=== PATIENT | male | born 1945 | race Caucasian/White ===

== ENCOUNTER 2018-12-21 07:36 | Emergency (ER) | payer MEDICARE, OTHER ==
[~2018-12-21] VITALS: Ht 172.7 cm; Wt 86.2 kg
[~2018-12-21 07:36] MED LIST: ALENDRONATE SOD70 MG PO; CALCIUM 600 +1 EAC1 PO; CYCLOBENZAPRINE10 MG PO; DICLOFENAC-MIS1 EAC3 PO; FOLIC ACID0.8 MG PO; GABAPENTIN800 MG PO; HYDROCODON-ACE1 EA10 PO; KEFLEX500 MG PO; LACTULOSE10 GM/151 PO; LEFLUNOMIDE10 MG PO; LEVOTHYROXINE75 MCG PO; LISINOPRIL10 MG PO; LITHIUM CARBON600 MG PO; METHOTREXA25 MG/1 ML INJ; MIRTAZAPINE30 MG PO; MULTIVITAMINS1 EAC7 PO; OMEPRAZOLE20 MG PO; SERTRALINE HCL100 MG PO; SIMVASTATIN80 MG PO; TAMSULOSIN HCL0.4 MG PO; VITAMIN C500 M1 PO; VITAMIN D22000 UNIT PO; ZIPRASIDONE HCL80 MG PO
--- OUTSIDE RECORDS SUMMARY | 2018-12-21 07:38 | XMS ---
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 April has no Care Guidelines for this patient. [place] VISIT COUNT (12 MO.) 1 RAHEEM uW TOTAL 1 NOTE: Visits indicate total known visits. ED/UCC VISIT TRACKING (12 MO.) 12/21/2018 07:36 [place] [place] TYPE: Emergency COMPLAINT: - ABD PAIN INPATIENT VISIT TRACKING (12 MO.) No inpatient visits to display in this time frame [id number]
[2018-12-21] MEDS ORDERED: ARAVA10 MG PO (09:46)
[2018-12-21] MEDS ORDERED: CYMBALTA60 MG PO (09:46)
[2018-12-21] MEDS ORDERED: B-121000 MC2 PO (09:46)
[2018-12-21] MEDS ORDERED: FLOVENT HFA12 G1 INH (09:47)
[2018-12-21] MEDS ORDERED: FISH OIL 1,2001 EAC6 PO (09:47)
[2018-12-21] MEDS ORDERED: GLUCOSAMIN-CHO1 EACH PO (09:48)
[2018-12-21] MEDS ORDERED: METHYLFOLATE PO (09:48)
[2018-12-21] MEDS ORDERED: XOPENEX0.63 MG/3 INH (09:49)
[2018-12-21] MEDS ORDERED: LITHIUM CARBON300 M1 PO (09:50)
[2018-12-21] MEDS ORDERED: LEVOTHYROXINE88 MCG PO (09:50)
[2018-12-21] MEDS ORDERED: MELATONIN5 M2 PO (09:50)
[2018-12-21] MEDS ORDERED: CELLCEPT500 MG PO (09:51)
[2018-12-21] MEDS ORDERED: PROPRANOLOL HC160 MG PO (09:53)
[2018-12-21] MEDS ORDERED: ZOCOR40 MG PO (09:53)
[2018-12-21] MEDS ORDERED: Tumeric Curcumin PO (09:54)
[2018-12-21] MEDS ORDERED: AMBIEN5 MG PO (09:55)
[2018-12-21] MEDS ORDERED: VRAYLAR4.5 MG PO (09:55)
[2018-12-21] MEDS ORDERED: MIRALAX17 GM PO (11:32)
== END 2018-12-21 11:47 | disposition home or self-care (01) ==
LOC: ED 07:36
DX: R10.9 Unspecified abdominal pain (principal); M06.9 Rheumatoid arthritis, unspecified; F32.9 Major depressive disorder, single episode, unspecified; E03.9 Hypothyroidism, unspecified; G47.30 Sleep apnea, unspecified; I10 Essential (primary) hypertension; E78.00 Pure hypercholesterolemia, unspecified; Z87.891 Personal history of nicotine dependence; Z90.49 Acquired absence of other specified parts of digestive tract; Z79.899 Other long term (current) drug therapy
CPT/HCPCS: 74177; 80053; 81001; 83690; 85025; 96374; 96375; 99284-25; J2270; J2405; J7030; Q9967

== ENCOUNTER 2019-09-09 13:52 | Emergency (ER) | payer MEDICARE, OTHER ==
[~2019-09-09] VITALS: Ht 172.7 cm; Wt 101.6 kg
--- OUTSIDE RECORDS SUMMARY | ~2019-09-09 | XMS | Clinical Summary ---
Demographics + + + | Address | [address] | | | [place] [address] | + + + | Home Phone | | + + + | Preferred Language | Unknown | + + + | Marital Status | | + + + | Mormon Affiliation | Unknown | + + + | Race | Unknown | + + + | Ethnic Group | Unknown | + + + Author + + + | Author | [facility] (Historical as of | | | 06-16-19) | + + + | Organization | [facility] (Historical as of | | | 06-16-19) | + + + | Address | Unknown | + + + | Phone | Unavailable | + + + Support + + + + + | Name | Relationship | Address | Phone | + + + + + | Detailed,Message | ECON | [address] | | | | | [place], [place] | | | | | [address] | | + + + + + | Maldonado Rea | ECON | Unknown | | + + + + + | Henny Rea | ECON | Unknown | | + + + + + | Meredith Rea | ECON | Unknown | | + + + + + Care Team Providers + +------+ + | Care Rotary Planer Set Up Operator Name | Role | Phone | + +------+ + | Brandon Juarez MD | PP | Unavailable | + +------+ + Allergies No Known Allergies Current Medications + + +-------+---------+------+------+-------+ | Prescription | Sig. | Disp. | Refills | Star | End | Statu | | | | | | t | Date | s | | | | | | Date | | | + + +-------+---------+------+------+-------+ | levothyroxine | Take 75 mcg by mouth | | | | | Activ | | (SYNTHROID) 75 MCG | every morning | | | | | e | | tablet | before breakfast. | | | | | | + + +-------+---------+------+------+-------+ | gabapentin | Take 800 mg by mouth | | | | | Activ | | (NEURONTIN) 800 MG | 4 (four) times | | | | | e | | tablet | daily. | | | | | | + + +-------+---------+------+------+-------+ | omeprazole | Take 20 mg by mouth | | | | | Activ | | (PRILOSEC) 20 MG | 2 (two) times daily. | | | | | e | | capsule | | | | | | | + + +-------+---------+------+------+-------+ | folic acid | Take 800 mcg by | | | | | Activ | | (FOLVITE) 800 MCG | mouth daily. | | | | | e | | tablet | | | | | | | + + +-------+---------+------+------+-------+ | Cholecalciferol | Take 4,000 Units by | | | | | Activ | | (VITAMIN D) 2000 | mouth daily. | | | | | e | | UNITS tablet | | | | | | | + + +-------+---------+------+------+-------+ | ascorbic acid | Take 500 mg by mouth | | | | | Activ | | (VITAMIN C) 500 MG | daily. | | | | | e | | tablet | | | | | | | + + +-------+---------+------+------+-------+ | simvastatin | Take 40 mg by mouth | | | | | Activ | | (ZOCOR) 40 MG tablet | nightly. | | | | | e | + + +-------+---------+------+------+-------+ | | Take 1 tablet by | | | | | Activ | | diclofenac-misoprost | mouth daily. | | | | | e | | ol (ARTHROTEC 50) | | | | | | | | 50-0.2 MG per tablet | | | | | | | + + +-------+---------+------+------+-------+ | leflunomide | Take 10 mg by mouth | | | | | Activ | | (ARAVA) 20 MG | daily. Tuesday thru | | | | | e | | tabletIndications: | Fridays only | | | | | | | 10mg sat and sun | Indications: 10mg | | | | | | | | sat and sun | | | | | | + + +-------+---------+------+------+-------+ | DULoxetine | Take 30 mg by mouth | | | | | Activ | | (CYMBALTA) 30 MG | daily. | | | | | e | | capsule | | | | | | | + + +-------+---------+------+------+-------+ | lurasidone | Take 80 mg by mouth | | | | | Activ | | (LATUDA) 80 MG | every morning. T | | | | | e | | tablet | | | | | | | + + +-------+---------+------+------+-------+ | | Take 1 capsule by | | | | | Activ | | glucosamine-chondroi | mouth daily. | | | | | e | | tin 500-400 MG CAPS | | | | | | | + + +-------+---------+------+------+-------+ | MULTIPLE VITAMINS | Take by mouth | | | | | Activ | | PO | daily. | | | | | e | + + +-------+---------+------+------+-------+ | fish oil omega-3 | Take 1,200 mg by | | | | | Activ | | fatty acids 1000 MG | mouth daily. | | | | | e | | capsule | | | | | | | + + +-------+---------+------+------+-------+ | Misc Natural | Take by mouth | | | | | Activ | | Products (TURMERIC | daily. | | | | | e | | CURCUMIN) CAPS | | | | | | | + + +-------+---------+------+------+-------+ | cyanocobalamin | Take 1,000 mcg by | | | | | Activ | | (VITAMIN B-12) 1000 | mouth daily. | | | | | e | | MCG tablet | | | | | | | + + +-------+---------+------+------+-------+ | tofacitinib | Take 11 mg by mouth | | | | | Activ | | citrate (XELJANZ XR) | Before eavning meal. | | | | | e | | 11 MG tablet XR | | | | | | | + + +-------+---------+------+------+-------+ | lithium carbonate | Take 900 mg by mouth | | | | | Activ | | 300 MG capsule | nightly. | | | | | e | + + +-------+---------+------+------+-------+ | methotrexate 1 | Inject 0.9 mg/kg | | | | | Activ | | GM/40ML SOLN | into the vein once. | | | | | e | | injection | | | | | | | + + +-------+---------+------+------+-------+ | medical marijuana | as needed. | | | | | Activ | | | | | | | | e | + + +-------+---------+------+------+-------+ Active Problems + + + | Problem | Noted Date | + + + | Bradycardia | 03/12/2015 | + + + + + | Last Assessment & Plan: Low heart rate but asymptomaticHe had | | brief period of HTN when he was on steroids for control of | | rheumatoid arthritis- now he is off steroids for over a year and | | possibly his BP is better controlled off BP medications.Reg EST | | appropriate chronotropic response to [id number] echo not done | | yetCOntinue rest of the current managementContinue StatinFollow | | up annually- pending echo. | + + + + + | Left carotid bruit | 04/02/2013 | + + + | Orthostatic hypotension | 04/02/2013 | + + + | Depression | | + + + | Hypothyroidism | | + + + | Essential hypertension | | + + + + + | Last Assessment & Plan: Hypertension, borderline control. | | 71 y old man being seen today for follow-up on hypertension and | | bradycardia. Last seen one year ago and had an echo done | | 09/22/2015 which demonstrated normal LV systolic function with an | | EF of almost 70% and mild concentric LVH. He also had a stress | | test done last year. Since last seen he denies any | | hospitalization for chest pain, palpitations, or irregular heart | | rate. He denies any angina, shortness of breath, dizziness, or | | syncope. He reports his blood pressure was treated with | | lisinopril by his PCP but his blood pressure was too low and it | | was stopped. He is also on propranolol 3 times a day for tremor. | | He has severe rheumatoid arthritis which causes a great deal of | | pain and which he and his feel contributes to transient | | elevations in his blood pressure. EKG reviewed with patient. He | | was advised to continue to follow-up with his primary care and | | not experiencing any chest pain or other symptoms, could follow | | up with us in 2 years.Last Cath: [facility], [facility]2015 [facility] Aortic valve mildly sclerotic, trileaflet. Right | | and left atrial sizes WNL. No aortic stenosis or regurgitation. | | Trace mitral regurgitation. Aortic size 3.7 cm. Mild abdominal | | aortic plaque. Mild concentric LVH with normal systolic | | function.Last Stress Test: 03/20/2015 ([facility]): 7:27min | | Emre, no chest pain, ECG (-) for ischemia, occ PVC's.09/20/2016: | | EKG. Sinus bradycardia rate 52 bpm. Ongoing tremor affecting | | uejcofh3808/25/2016: Labs: Sodium 138, potassium 4.2, creatinine | | 0.87, BUN 10, GFR 87, glucose 101, liver enzymes WNL. CRP <1. | | Hemoglobin 15.8, hematocrit 46.2, lately at 338. ESR zero. No | | lipid | + + + +---+ | Polycythemia, secondary | | + +---+ + + | Overview: medical marijuana and sleep apnea | + + + +---+ | Bipolar disorder | | + +---+ | RA (rheumatoid arthritis) | | + +---+ + + | Last Assessment & Plan: Rheumatoid arthritis, chronic pain | | issues. Followed by Rheumatology, Dr. Leydi Nam. Pain from | | arthritis possibly a contributor to his labile hypertension. | + + + +---+ | Major depressive disorder, recurrent episode, severe degree, | | | without mention of psychotic behavior | | + +---+ | Anxiety disorder | | + +---+ | Schizophrenia (HCC) | | + +---+ Family History + + +------+ + | Medical History | Relation | Name | Comments | + + +------+ + | Heart disease | Father | | | + + +------+ + | Other (see comments) | Father | | CAD | + + +------+ + + +------+ + + | Relation | Name | Status | Comments | + +------+ + + | Father | | | OK, pacemaker, heart disease | | | | (Age | | | | | 68) | | + +------+ + + | Mother | | | suicide | | | | (Age | | | | | 36) | | + +------+ + + Social History + +-------+ +--------+ + | Tobacco Use | Types | Packs/Day | Years | Date | | | | | Used | | + +-------+ +--------+ + | Former Smoker | Pipe | | 15 | Quit: 10/31/1980 | + +-------+ +--------+ + + +---+---+---+ | Smokeless Tobacco: | | | | | Never Used | | | | + +---+---+---+ + + +---------+ + | Alcohol Use | Drinks/We | oz/Week | Comments | | | ek | | | + + +---------+ + | No | 0 | 0.0 | | | | Standard | | | | | drinks or | | | | | | | | | | equivalen | | | | | t | | | + + +---------+ + + + + | Sex Assigned at | Date Recorded | | | | + + + | Not on file | | + + + Last Filed Vital Signs + + + + | Vital Sign | Reading | Time Taken | + + + + | Blood Pressure | 154/66 | 09/20/2016 11:15 AM PST | + + + + | Pulse | 63 | 09/20/2016 11:15 AM PST | + + + + | Temperature | - | - | + + + + | Respiratory Rate | 17 | 09/20/2016 11:15 AM PST | + + + + | Oxygen Saturation | 98% | 09/20/2016 11:15 AM PST | + + + + | Inhaled Oxygen | - | - | | Concentration | | | + + + + | Weight | 97 kg (213 lb 12.8 | 09/20/2016 11:15 AM PST | | | oz) | | + + + + | Height | 172.7 cm (5' 8") | 09/20/2016 11:15 AM PST | + + + + | Body Mass Index | 32.51 | 09/20/2016 11:15 AM PST | + + + + Plan of Treatment + + + + + | Health Maintenance | Due Date | Last Done | Comments | + + + + + | Vaccine: | | | | | Dtap/Tdap/Td (1 - | 5 | | | | Tdap) | | | | + + + + + | Colon Cancer | | | | | Screening | 6 | | | | (Colonoscopy) | | | | + + + + + | Vaccine: Zoster (1 | | | | | of 2) | 6 | | | + + + + + | Vaccine: Influenza | | 07/25/2018, 08/12/2017, | | | (#1) | 9 | 08/07/2015 | | + + + + + | Vaccine: | Completed | 08/12/2017, 08/11/2013 | | | Pneumococcal 65+ | | | | | Low/Medium Risk | | | | + + + + + Results Not on filefrom Last 3 Months Insurance + +--------+ +------+-------+ + | Payer | Benefi | Subscriber | Type | Phone | Address | | | t Plan | ID | | | | | | / | | | | | | | Group | | | | | + +--------+ +------+-------+ + | MEDICARE | MEDICA | [id number] | | | [address] | | | RE | | | | [place] [address] | | | IP-OP | | | | | + +--------+ +------+-------+ + | [employer] | ODS | [id number] | | | | | | HEALTH | | | | | | | PLAN | | | | | + +--------+ +------+-------+ + + +--------+ +--------+ + + | Guarantor Name | Accoun | Relation to | Date | Phone | Billing Address | | | t Type | Patient | of | | | | | | | | | | + +--------+ +--------+ + + | RACHEL REA | Person | Self | [birth year] Home: | [address] | | | al/Fam | | 1945 | [phone] | [place] | | | [place] | | | [phone] | [phone] | + +--------+ +--------+ + +
--- OUTSIDE RECORDS SUMMARY | ~2019-09-09 | XMS | Encounter Summary ---
Demographics + + + | Address | [address] | | | [place] [address] | + + + | Home Phone | | + + + | Preferred Language | Unknown | + + + | Marital Status | | + + + | Taoist Affiliation | Unknown | + + + | Race | Unknown | + + + | Ethnic Group | Unknown | + + + Author + + + | Author | [facility] | | | and [place] | + + + | Organization | [facility] | | | and [place] | + + + | Address | Unknown | + + + | Phone | Unavailable | + + + Support + + + + + | Name | Relationship | Address | Phone | + + + + + | Henny Rea | ECON | [address] | | | | | [place], [place] | | | | | [address] | | + + + + + | Mao Rea | ECON | Unknown | | + + + + + | Meredith Rea | ECON | Unknown | | + + + + + | Iqra Medina | ECON | [address] | | | | | [place], [place] | | | | | [address] | | + + + + + | Maldonado Rea | ECON | Unknown | | + + + + + Care Team Providers + +------+ + | Care Game Farm Helper Name | Role | Phone | + +------+ + | Brandon Juarez MD | PCP | | + +------+ + Reason for Visit + + + | Reason | Comments | + + + | Back Pain | | + + + Evaluate & Treat (Routine) +--------+ + + + + + | Status | Reason | Specialty | Diagnoses / | Referred By | Referred To | | | | | Procedures | Contact | Contact | +--------+ + + + + + | Closed | Specialty | Neurosurgery | Diagnoses | Charles | Koby George | | | Services | | Lumbar | Logan Rios MD | MD [facility] [address] | | | Required | | spinal | [address] | | | | | stenosis | [address] | [place], [place] | | | | | Lumbalgia | [place], | [address] | | | | | Lumbar | [place] [address] | Phone: | | | | | degenerative | Phone: | [phone] | | | | | disc | [phone] | Fax: | | | | | disease | Fax: | [phone] | | | | | Lumbar facet | [phone] | | | | | | arthropathy | | | | | | | Procedures | | | | | | | [place] OFFICE | | | | | | | CONSULTATION | | | | | | | NEW/ESTAB | | | | | | | PATIENT 60 | | | | | | | MIN | | | +--------+ + + + + + Encounter Details +--------+---------+ + + + | Date | Type | Department | Care Team | Description | +--------+---------+ + + + | 08/20/ | Office | [facility] | Koby George MD | Flat back syndrome | | 2013 | Visit | NEUROSURGERY [address] | (Primary Dx); | | | | [address] | [place] [address] | Degenerative disc | | | | [place], [place] | [phone] | disease, lumbar; | | | | [address] | | Lumbar stenosis with | | | | [phone] | | neurogenic | | | | | | claudication; | | | | | | Foraminal stenosis | | | | | | of lumbar region; | | | | | | Lumbar | | | | | | radiculopathy; | | | | | | 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; | | | | | | Facet arthropathy, | | | | | | lumbar | +--------+---------+ + + + Social History + +-------+ +--------+ + | Tobacco Use | Types | Packs/Day | Years | Date | | | | | Used | | + +-------+ +--------+ + | Former Smoker | | 2 | 20 | Quit: 10/31/1980 | + +-------+ +--------+ [...] on file | | + + + + + + + | Job Start Date | Occupation | Industry | + + + + | Not on file | Not on file | Not on file | + + + + + + + + | Travel History | Travel Start | Travel End | + + + + + + | No recent travel history available. | + + documented as of this encounter Last Filed Vital Signs + + + + + | Vital Sign | Reading | Time Taken | Comments | + + + + + | Blood Pressure | 112/70 | 08/20/2014 8:32 AM | | | | | PDT | | + + + + + | Pulse | 68 | 08/20/2014 8:32 AM | | | | | PDT | | + + + + + | Temperature | - | - | | + + + + + | Respiratory Rate | 18 | 08/20/2014 8:32 AM | | | | | PDT | | + + + + + | Oxygen Saturation | - | - | | + + + + + | Inhaled Oxygen | - | - | | | Concentration | | | | + + + + + | Weight | 87.1 kg (192 lb) | 08/20/2014 8:32 AM | | | | | PDT | | + + + + + | Height | 175.3 cm (5' 9") | 08/20/2014 8:32 AM | | | | | PDT | | + + + + + | Body Mass Index | 28.35 | 08/20/2014 8:32 AM | | | | | PDT | | + + + + + documented in this encounter Patient Instructions Patient Instructions Koby George MD - 08/20/2014 9:47 AM PDTWe discussed and will attemp t to arrange a lumbar fusion. I favored an anterior fusion with posterior instrumentation. Your insurance provider may or may not approve the procedure, but I feel it is medically ne cessary and appropriate. We discussed a number of important issues including risks, benefits, and alternatives. A spine class is usually available sometime before your surgery. These classes are very us eful in preparing for spinal surgery. I would encourage you to attend one. After surgery, it is critical that you do not start or resume smoking and also that you brayan id taking any and all anti-inflammatory medications like ibuprofen, Motrin, naproxen, Aleve, Celebrex, diclofenac, Mobic, meloxicam, and many others. The bone is much less likely to h eal if you do not avoid these. It is usually best not to take these or smoke for 6 months. You can research this procedure more at: [email or web address].com/patient-solutions/ Choose your Diagnosis first and then choose XLIF under the [facility] link. documented in this encounter Progress Notes Koby George MD - 08/20/2014 8:26 AM PDTFormatting of this note might be different from t he original. Koby George MD [address], [address] [place] [address] FAX: NEUROSURGERY HISTORY AND PHYSICAL EXAMINATION CHIEF COMPLAINT: Chief Complaint Patient presents with Back Pain HISTORY OF PRESENT ILLNESS: The patient is a 69 y.o. male with the complaint of back pain and leg pain that began over 1 year ago. The symptoms began to worsen. He has pain in his back and pain down his left posterior leg and anterior thigh as well. The anterior thigh pa in is constant. The posterior leg pain to [...] tablet Take 10 mg by mouth Daily. lisinopril (PRINIVIL, ZESTRIL) 10 mg tablet Take [...] patient reports that he quit smoking about 33 years ago. He has never used smokeless [...] + rheumatoid arthritis. PHYSICAL EXAMINATION: Blood pressure 112/70, pulse 68, resp. rate 18, height 1.753 m (5' 9"), weight 87.091 kg (1 92 lb). Body mass index is 28.34 kg/(m^2). GENERAL: Uziel Rea is in no [...] has no apparent deficits with short or correction memory. CRANIAL NERVES: II: Acuity is intact. [...] Indicates pain limited MUSCLE/ MOVEMENT: RIGHT LEFT Deltoids 5 5 Biceps 5 5 Triceps 5 5 Wrist Flexion 5 5 Wrist Extension 5 5 Median Intrinsics 5 5 Ulnar Intrinsics 5 5 Gospel Worker Strength 5 5 Hip Flexion 5 5 Hip Extension 5 [...] ASSESSMENT: NEUROSURGICAL DIAGNOSES: Encounter Diagnoses Name Primary? Flat back syndrome Yes Degenerative disc disease, lumbar Lumbar stenosis with neurogenic claudication Foraminal stenosis of lumbar region Lumbar radiculopathy Spondylolisthesis of lumbar region Facet arthropathy, lumbar GENERAL DIAGNOSES: Past Medical History Diagnosis Date Depression Arthritis rheumatoid Cancer (HCC) 2003 colon cancer Anxiety Hypothyroid PLAN: It was a pleasure meeting and evaluating this patient today, and I greatly appreciate the r eferral. The patient has lumbar disease with severe stenosis I had a lengthy discussion with the patient about his options for care including surgical a nd non-surgical options. He favored surgery over continuing his failing conservative care. I discussed a L2-L5 fusion with decompression and instrumentation. We discussed the risks, alternatives, and benefits [...] improve the probability and rate of fusion. I spent 1 hour in visit with Uziel Rea today with the majority of time spent debt and budget counselor ling the patient on his diagnosis, options for his care, and coordinating his care. ELECTRONICALLY SIGNED BY: Koby George MD, 08/20/2014 9:47 documented in this encou nter Plan of Treatment +--------+---------+ + + + | Date | Type | Specialty | Care Team | Description | +--------+---------+ + + + | 12/07/ | Office | Neurology | Abundio Khanna MD | | | 2020 | Visit | | [address] | | | | | | [place] | | | | | | [address] | | | | | | | | +--------+---------+ + + + documented as of this encounter Visit Diagnoses + + | Diagnosis | + + | Flat back syndrome - Primary Other lordosis (acquired) | + + | Degenerative disc disease, lumbar Degeneration of lumbar or lumbosacral | | intervertebral disc | + + | Lumbar stenosis with neurogenic claudication Spinal stenosis, lumbar region, with | | neurogenic claudication | + + | Foraminal stenosis of lumbar region Spinal stenosis, lumbar region, without | | neurogenic claudication | + + | Lumbar radiculopathy Thoracic or lumbosacral neuritis or radiculitis, unspecified | + + | Spondylolisthesis of lumbar region Acquired spondylolisthesis | + + | Facet arthropathy, lumbar Lumbosacral spondylosis without myelopathy | + + documented in this encounter
--- OUTSIDE RECORDS SUMMARY | ~2019-09-09 | XMS | Encounter Summary ---
Demographics + + + | Address | [address] | | | [place] [address] | + + + | Home Phone | | + + + | Preferred Language | Unknown | + + + | Marital Status | | + + + | Jainism Affiliation | Unknown | + + + | Race | Unknown | + + + | Ethnic Group | Unknown | + + + Author + + + | Author | [facility] | | | and [place] | + + + | Organization | [facility] | | | and [place] | [...] [place], [place] | | | | | [address] | | + + + + + | Mao Rea | ECON | Unknown | | + + + + + | Meredith Rea | ECON | Unknown | | + + + + + | Iqra Medina | ECON | [address] | | | | | [place], [place] | | | | | [address] | | + + + + + | Maldonado Rea | ECON | Unknown | | + + + + + Care Team Providers + +------+ + | Care Elevator Tender Name | Role | Phone | + +------+ + | Sherie Vela PA-C | PCP | | + +------+ + Reason for Referral Evaluate & Treat (Routine) +--------+ + + + + + | Status | Reason | Specialty | Diagnoses / | Referred By | Referred To | | | | | Procedures | Contact | Contact | +--------+ + + + + + | Closed | Specialty | Neurosurgery | Diagnoses | Charles | [facility] | | | Services | | Lumbar | Logan Rios MD | NEUROSCIENCE | | | Required | | radiculopath | [address] | | | | | y Chronic | [address] | [address] | | | | | left-sided | [place], | [address] | | | | | low back | [place] [address] | [place], [place] | | | | | pain with | Phone: | [phone] | | | | | left-sided | [phone] | Phone: | | | | | sciatica | Fax: | [phone] | | | | | History of | [phone] | Fax: | | | | | lumbar | | [phone] | | | | | fusion | | | | | | | Failed back | | | | | | | surgical | | | | | | | syndrome | | | | | | | Left leg | | | | | | | weakness | | | | | | | Parkinsonian | | | | | | | tremor | | | | | | | ([facility]) | | | +--------+ + + + + + Reason for Visit + + + | Reason | Comments | + + + | Back Pain | | + + + Encounter Details +--------+---------+ + + + | Date | Type | Department | Care Team | Description | +--------+---------+ + + + | 02/26/ | Office | [facility] [place] | Logan Soto, | Lumbar radiculopathy | | 2019 | Visit | PHYSIATRY [address] | [address] | (Primary Dx); | | | | [address] [place], | [place], [place] | Chronic left-sided | | | | [place] [address] | [address] | low back pain with | | | | [phone] | | left-sided sciatica; | | | | | | History of lumbar | | | | | | fusion; Failed back | | | | | | surgical syndrome; | | | | | | Left leg weakness; | | | | | | Parkinsonian tremor | | | | | | (HCC) | +--------+---------+ + + + Social History [...] this encounter Last Filed Vital Signs + +---------+ + + | Vital Sign | Reading | Time Taken | Comments | + +---------+ + + | Blood Pressure | 151/98 | 02/26/2019 1:09 PM | | | | | PDT | | + +---------+ + + | Pulse | 70 | 02/26/2019 1:09 PM | | | | | PDT | | + +---------+ + + | Temperature | - | - | | + +---------+ + + | Respiratory Rate | - | - | | + +---------+ + + | Oxygen Saturation | - | - | | + +---------+ + + | Inhaled Oxygen | - | - | | | Concentration | | | | + +---------+ + + | Weight | - | - | | + +---------+ + + | Height | - | - | | + +---------+ + + | Body Mass Index | - | - | | + +---------+ + + documented in this encounter Functional [...] + + documented as of this encounter Patient Instructions Patient Instructions Petra Prater RN - 02/26/2019 1:00 PM [facility] to [facility]. Please attend the injection appointment with Luis Carlos Jiménez MD. If his office has not co ntacted you within one week, to schedule the injection, please contact my clinic. Your inje ction will be performed at [facility]. Please take note of whether your pain is significantly reduced in the hours immediately following the injecti on. Follow-up at the hospital thirty minutes before your scheduled procedure to allow for time to check in. You may eat and drink as usual on the day of the procedure. If you are scheduled for an epidural injection do not take any blood thinning medications f or at least 5-7 days prior to your procedure unless you have been instructed by another phys ician not to discontinue blood thinning medications. If you are having a procedure other than an epidural injection (i.e. facet injection, media l branch block, SI joint injection or other joint injection) it is not absolutely necessary to discontinue blood thinning medications but doing so will decrease the risk of bruising or bleeding. If you have had a prior stroke, DVT or PE or if you are taking blood thinning medication be cause you have atrial fibrillation, a prosthetic cardiac valve replacement or heart stenting do not stop taking your blood thinning medications unless you have permission from your car diologist or primary care provider. All other medications should be taken as usual on the day of the procedure. Common blood thinning medications include: Aspirin (a baby aspirin is o.k.) Ibuprofen (Advil or Motrin) Naproxen (Aleve) Nabumetone (Relafen) Clopidogrel (Plavix) Dipyridamole/ASA (Aggrenox) Warfarin (Coumadin) Dabigatran (Pradaxa) Rivaroxaban (Xarelto) There are many others. If you have questions about your medications and whether or not you should stop any medications please contact our office. If you are having an epidural injection or if you take any medication for relaxation/sedati on on the day of the procedure you must provide a caterpillar driver to take you home. For all procedur es it is recommended that someone else drive you home. documented in this encounter Progress Notes Logan oSto MD - 02/26/2019 1:00 PM PDTFormatting of this note might be different fro m the original. Logan Soto MD [address] [facility], [address] [place], [place] [id number] FAX: PHYSICAL MEDICINE AND REHABILITATION H&P CHIEF COMPLAINT: Chief Complaint Patient presents with Back Pain HISTORY OF PRESENT ILLNESS: Uziel Rea is a 73 y.o. male being seen today in follow-up for complaints of back pain and to review response to interventional injections. Uziel Rea was last seen on 11/20/18. Previously it was recommended that he complete repeat treatment with Dr. Jiménez. Overall Uziel Rea reports that his symptoms are worsening. He reports having a recent fal l that caused his back to twist causing increased pain. Uziel Rea indicates he is also having evaluation and treatment with Dr. Jessica, he indic ates that he received recent SI joint injection in January that offered approximately 10 days of improved pain. Uziel Rea indicates at this time he would like to discuss available surgical intervention . Uziel Rea rates his back pain as 7 on scale of 1-10. Uziel Rea describes the pain as aching and sharp. His symptoms worsen with walking, standing, bending, and riding in a car . His symptoms improve with lying flat on his back down and steroid injections. Uziel hernandez denies numbness of the legs at this time, He does continue to have chronic tingling of the feet. He does report weakness of the bilateral legs, worse to the left. He continues t o use a single point cane for aid with ambulation. He does not have bowel and bladder dysfunction. He does not have saddle anesthesia. Treatments for these complaints have included medication, bone growth stimulator, Physical Therapy, steroid injections, and surgical interventions. Uziel Rea is currently taking Cy mbalta and gabapentin for treatment his of pain. Prior injections have included left L2-L3 transforaminal epidural steroid injection. Uziel murphy's most recent injection was completed 12/06/17, with Dr. Jiménez. Uziel Rea repor ts having approximately 25% improvement directly following the injection. Uziel Rea report s that 2 weeks following the injection he experienced approximately 70% improvement to his b ack pain. Today Uziel Rea reports that the effects of the injection have worn off. Uziel Rea's medications, allergies, past medical, surgical, social and family histories w ere reviewed and updated as appropriate. CURRENT MEDICATIONS: Current Outpatient Medications Medication Sig Dispense Refill Ascorbic Acid (VITAMIN C WITH TOM HIPS) 500 MG tablet Take 500 mg by mouth Daily. Calcium Carb-Cholecalciferol (CALCIUM + D3) 600-800 MG-UNIT TABS Take 2 tablets by mout h Daily. carbidopa-levodopa (SINEMET) 25-100 mg per tablet Take 1 tablet by mouth 3 times daily. Start with 1 tab daily. Increase by 1 tab every 3 days up to 1 tab 3 times a day. 90 tablet 5 Cholecalciferol (VITAMIN D-3) 2000 units CAPS Take 2,000 Units by mouth Daily. cyanocobalamin (VITAMIN B-12) 1000 MCG tablet Take 1,000 mcg by mouth Daily. DULoxetine (CYMBALTA) [address] capsule DULoxetine (CYMBALTA) [address] capsule fluticasone (FLOVENT HFA) 110 mcg/puff inhaler Inhale 1 puff into the lungs 2 times jake ly. gabapentin (NEURONTIN) 400 mg capsule Take 400 mg by mouth 2 times daily. glucosamine-chondroitin (GLUCOSAMINE-CHONDROITIN DS) 500-400 MG tablet Take 1 tablet by mouth Daily. l-methylfolate 7.5 mg tablet Take 7.5 mg by mouth Daily. leflunomide (ARAVA) 10 mg tablet Take 10 mg by mouth Daily. levalbuterol (XOPENEX HFA) 45 mcg/puff inhaler 2 puffs EVERY 4 TO 6 HOURS NEEDED for Shortness of Breath. levothyroxine (SYNTHROID) 88 mcg tablet Take 88 mcg by mouth every morning (before nereida kfast). lithium 300 mg capsule Take 300 mg by mouth 3 times daily. melatonin 5 mg tablet Take 10 mg by mouth nightly. methotrexate (PF) 25 mg/mL injection Inject 0.9 mg into the muscle Once a week. Misc Natural Products (TURMERIC CURCUMIN) CAPS Take 2 capsules by mouth Daily. Multiple Vitamins-Minerals (A THRU Z ADVANCED) TABS (Patient taking differently: Take 1 tablet by mouth Daily.) mycophenolate (CELLCEPT) 500 MG tablet Take 1,000 mg by mouth 2 times daily. omeprazole (PRILOSEC) 20 mg capsule Take 20 mg by mouth every morning (before breakfast ). propranolol (INDERAL LA) 80 mg SR capsule simvastatin (ZOCOR) 40 mg tablet Take 40 mg by mouth Daily. VRAYLAR 4.5 MG capsule No current facility-administered medications for this visit. ALLERGIES: No Known Allergies REVIEW OF SYSTEMS: Review of Systems Constitutional: Negative for chills, diaphoresis, malaise/fatigue and weight loss. HENT: Positive for hearing loss. Negative for ear discharge, ear pain and tinnitus. Eyes: Negative. Respiratory: Positive for shortness of breath. Negative for cough, hemoptysis and sputum pr oduction. Cardiovascular: Negative. Gastrointestinal: Negative. Genitourinary: Positive for frequency and urgency. Incontinence Musculoskeletal: Positive for back pain, falls, joint pain and myalgias. Skin: Negative. Neurological: Positive for dizziness, tingling, tremors, sensory change, focal weakness, we akness and headaches. Negative for speech change, seizures and loss of consciousness. Endo/Heme/Allergies: Negative. Psychiatric/Behavioral: Positive for depression and memory loss. Negative for hallucination s, substance abuse and suicidal ideas. The patient is nervous/anxious. The patient does not have insomnia. PHYSICAL EXAMINATION: There is no height or weight on file to calculate BMI. Vitals: 02/26/19 1309 BP: (!) 151/98 Pulse: 70 GENERAL: The patient is well developed and well nourished. He does not appear uncomfortabl e when seated. HEENT: Normocephalic and atraumatic. Normal sclerae without icterus. NECK (ANTERIOR): There is no apparent cervical lymphadenopathy or thyromegaly. PULMONARY: The patient is in no acute respiratory distress with unlabored respirations. CARDIOVASCULAR: Regular rate and rhythm. There is not lower extremity edema. ABDOMEN: Non-distended. SKIN: Limited skin exam shows no significant rashes or lesions. NEUROLOGIC: The patient is awake, alert, and oriented. He follows simple and complex commands. His speech is fluent. He comprehends speech well. He has no apparent deficits with short or senior care memory. The cranial nerves appear grossly intact. Resting tremor to bilateral hands, worse to right, tremor to jaw noted. Sensory exam: sensation intact to light touch in the upper and lower extremities. Decreased sensation with monofilament testing to bilateral L5 dermatome distribution. MOTOR EXAM: (5 IS NORMAL) * Indicates pain limited MUSCLE/ MOVEMENT: RIGHT LEFT Hip Flexion 5 4 Hip Extension 5 5 Knee Flexion 5 4 Knee Extension 5 4 Extensor Hallicus Longus 5 5 Ankle Dorsiflexion 4 4 Plantarflexion 5 5 MUSCULOSKELETAL : The patient localized the majority of the pain to the region of L1-L2, wo rse to the left. DATABASE: Lumbar MRI from 01/11/2019 imaging was personally reviewed by me. Imaging demonstrates; sta tus post posterior fusion of L2-S1 with bilateral iliac screw. "L1-2 broad based disc bulge combines with posterior element hypertrophy and 3 m of L2 retrolisthesis to cause moderately severe cental canal stenosis" ASSESSMENT: 1. Lumbar radiculopathy 2. Chronic left-sided low back pain with left-sided sciatica 3. History of lumbar fusion 4. Failed back surgical syndrome 5. Left leg weakness 6. Parkinsonian tremor (HCC) PLAN: 1. Uziel Rea returns to the clinic today to review his response to interventional injecti ons. 2. Uziel Rea indicates having improved symptoms after TFESI completed in December, unfort unately he has failed to have lasting therapeutic benefit from the injections as he did with previous injections. In hopes with better capturing his origin of pain he will have a repeat TFESI in March at th e level of his noted stenosis, left L1-L2. 3. Uziel Rea indicates he is having increased pain to the region above his previous fusio n. Upon physical evaluation he localizes pain to the L1-L2 region. Recently completed Lumbar MRI demonstrates stenosis to the L1-L2 region. He is noted with increased left leg weaknes s. He reports pain worse to the left back. We dicussed that it is difficult to definitively differentiate if his noted weakness is fr om the back vs his parkinson's. 4. Surgical intervention was discussed today with Uziel Rea. We discussed that surgical t reatment is usually considered last resort.We discussed that surgical treatment is recomme nded if weakness is affecting function. We discussed that surgical treatment is recommende d if there are changes to bowel/bladder function. We discussed that surgical treatment may be considered if there is progressive weakness. We discussed that surgical treatment may be helpful for radicular symptoms, but back pain may persist after surgical treatment. 5. Uziel Rea indicates interest in being evaluated by a neurosurgeon. He will be referred to [facility] neurosurgery to discuss available surgical interventions. 6. Uziel Rea was advised he may also discuss with Dr. Jessica treatment with RFA. Uziel Rea is advised that He has a loss of bowel or bladder control that He should seek e mergent medical attention. Uziel Rea was instructed that if He has progressive or profound weakness that He needs to seek urgent medical attention. Uziel Rea has been advised that if He has any significant changes in strength that He marisela uld return to the clinic on an earlier basis. 7. Uziel Reashould continue with at home exercises. 8. Uziel Rea will be scheduled to return in April after he completed TFESI in March. In summary: most of Uziel Rea's back pain is axial and para-axial. He has spondylolisthe sis, facet arthritis and spinal stenosis at the level above prior fusion. How much of his p ain is from spinal stenosis versus facet joint is not clear. He has left leg weakness on ex am. He denies radicular pain into the left leg. He has had benefit from past epidural ster oid injections. He will have left L1-2 TFESI in 03/2019 with hopes of once again offering p ain relief, and improve function. Uziel Rea may benefit from treating facet arthritis at L1-2. He will continue to follow up with Dr. Jessica, which may consider diagnostic medial branch blocks and subsequent RFA i f appropriate. Uziel Rea will have neurosurgery consult at [facility] to discuss surgical treatment options for his adjacent segment disease and lumbar spinal stenosis at L1-2. Thank you for allowing me to be involved in the care of your patient. If you have any ques tions regarding the care of your patient please don't hesitate to call. Approximately 30 minutes was spent face to face with Uziel Rea, over half of which was sp ent formulating and discussing their medical treatment plan. I, Logan Soto MD personally performed the services described in this documentation, as scribed by in my presence, Petra Prater RN and are both accurate and complete. Logan Soto MD - 02/26/2019 CC: Sherie Vela PA-C documented in this en counter Plan of Treatment +--------+---------+ + + + | Date | Type | Specialty | Care Team | Description | +--------+---------+ + + + | 12/07/ | Office | Neurology | Abundio Khanna MD | | | 2019 | Visit | | [address] | | | | | | [place] | | | | | | [phone] | | | | | | | | +--------+---------+ + + + + + +--------+ + + | Name | Type | Priori | Associated Diagnoses | Order Schedule | | | | ty | | | + + +--------+ + + | Neurosurgery, | Outpatient | Routin | Lumbar | Ordered: 02/26/2019 | | External - AMB | Referral | e | radiculopathy | | | Referral | | | Chronic left-sided | | | | | | low back pain with | | | | | | left-sided sciatica | | | | | | History of lumbar | | | | | | fusion Failed back | | | | | | surgical syndrome | | | | | | Left leg weakness | | | | | | Parkinsonian tremor | | | | | | (HCC) | | + + +--------+ + + documented as of this encounter Visit Diagnoses + + | Diagnosis | + + | Lumbar radiculopathy - Primary Thoracic or lumbosacral neuritis or radiculitis, | | unspecified | + + | Chronic left-sided low back pain with left-sided sciatica | + + | History of lumbar fusion | + + | Failed back surgical syndrome Other unspecified back disorder | + + | Left leg weakness Other musculoskeletal symptoms referable to limbs | + + | Parkinsonian tremor (HCC) Paralysis agitans | + + documented in this encounter
--- OUTSIDE RECORDS SUMMARY | ~2019-09-09 | XMS | Encounter Summary ---
Demographics + + + | Address | [address] | | | [place] [address] | + + + | Home Phone | | + + + | Preferred Language | Unknown | + + + | Marital Status | | + + + | Latter-Day Affiliation | Unknown | + + + | Race | Unknown | + + + | Ethnic Group | Unknown | + + + Author + + + | Author | [facility] | | | and [place] | + + + | Organization | [facility] | | | and [place] [...] [place], [place] | | | | | [address] | | + + + + + | Mao Rea | ECON | Unknown | | + + + + + | Meredith Rea | ECON | Unknown | | + + + + + | Iqra Medina | ECON | [address] | | | | | [place], [place] | | | | | [address] | | + + + + + | Maldonado Rea | ECON | Unknown | | + + + + + Care Team Providers + +------+ + | Care Maintenance Craftsman Name | Role | Phone | + +------+ + | Sherie Vela PA-C | PCP | | + +------+ + Encounter Details +--------+ + + + + | Date | Type | Department | Care Team | Description | +--------+ + + + + | 06/29/ | Abstract | [facility] [place] | Jarvis Dawson, | | | 2018 | | NEUROLOGY [place] | MD Shavon CARCAMO | | | | | [address], | [place] [address] | | | | | [address] [place] | [place] | | | | | [place] [address] | [id number] | | | | | [phone] | | | +--------+ + + + [...] as of this encounter Plan of Treatment +--------+---------+ + + + | Date | Type | Specialty | Care Team | Description | +--------+---------+ + + + | 12/07/ | Office | Neurology | Abundio Khanna MD | | | 2020 | Visit | | [address] | | | | | | [place] | | | | | | [address] | | | | | | | | +--------+---------+ + + + documented as of this encounter Visit Diagnoses Not on filedocumented in this encounter"
--- OUTSIDE RECORDS SUMMARY | ~2019-09-09 | XMS | Encounter Summary ---
Demographics + + + | Address | [address] | | | [place] [address] | + + + | Home Phone | | + + + | Preferred Language | Unknown | + + + | Marital Status | | + + + | Holiness Affiliation | Unknown | + + + | Race | Unknown | + + + | Ethnic Group | Unknown | + + + Author + + + | Author | [facility] | | | and [place] | + + + | Organization | [facility] | | | and [place] | [...] [place], [place] | | | | | [address] | | + + + + + | Mao Rea | ECON | Unknown | | + + + + + | Meredith Rea | ECON | Unknown | | + + + + + | Iqra Medina | ECON | [address] | | | | | [place], [place] | | | | | [address] | | + + + + + | Maldonado Rea | ECON | Unknown | | + + + + + Care Team Providers + +------+ + | Care Process Trainer Name | Role | Phone | + [...] Description | +--------+---------+ + + + | 12/06/ | Office | [facility] | Logan Soto, | Chronic left-sided | | 2018 | Visit | PHYSIATRY [address] | low back pain with | | | | [place], | [place], [place] | left-sided sciatica | | | | [place] [address] | [id number] | (Primary Dx); Lumbar | | | | [phone] | | radiculopathy; | | | | | | History of lumbar | | | | | | fusion; Failed back | | | | | | surgical syndrome; | | | | | | Left leg weakness; | | | | | | Numbness of left | | | | | | foot; Sacroiliac | | | | | | joint dysfunction of | | | | | | both sides | +--------+---------+ + + + Social History [...] + + + | Blood Pressure | 137/78 | 12/06/2017 1:10 PM | | | | | PST | | + + + + + | Pulse | 53 | 12/06/2017 1:10 PM | | | | | PST | | + + + + + | Temperature | - | - | | + + + + + | Respiratory Rate | 20 | 12/06/2017 1:10 PM | | | | | PST | | + + + + + | Oxygen Saturation | - | - | | + + + + + | Inhaled Oxygen | - | - | | | Concentration | | | | + + + + + | Weight | 99.4 kg (219 lb 2.2 | 12/06/2017 1:10 PM | | | | oz) | PST | | + + + + + | Height | 172.7 cm (5' 8") | 12/06/2017 1:10 PM | | | | | PST | | + + + + + | Body Mass Index | 33.32 | 12/06/2017 1:10 PM | | | | | PST | [...] of this encounter Patient Instructions Patient Instructions Perta Prater RN - 12/06/2017 1:00 PM PSTPlease continue daily ex ercises as outlined by Physical Therapy. Please attend the injection appointment with Luis Carlos Jiménez MD. If his office has not co ntacted you within one week, to schedule the injection, please contact my clinic. Your inje ction will be performed at [facility]. Please take note of [...] of the procedure you must provide a driver trainee to take you home. For all procedur es it is recommended that someone else drive you home. documented in this encounter Progress Notes Logan Soto MD - 12/06/2017 1:00 PM PSTFormatting of this note might be different fro m the original. Logan Soto MD [address] [place] [address], [address] [place], [place] [id number] FAX: PHYSICAL MEDICINE AND REHABILITATION H&P CHIEF COMPLAINT: No chief complaint on file. HISTORY OF PRESENT ILLNESS: Uziel Rea is a 72 y.o. male being seen today in follow-up for complaints of back raj n. Uziel Rea was last seen on 09/06/17. Previously it was recommended that he return in 2.5 months for review of symptoms, that he continue to discuss SI treatment with Dr. Jovi joinre, and that he continue to participate in routine exercise as outlined by physical therap y. 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 Overall Uziel Rea reports that his worsening. He rates the pain as 7 on scale of 1- 10. He reports pain to the low back and into the left anterior thigh and left knee. Uziel Rea describes the pain as sharp pain. His symptoms worsen with walking, standing in pl [address], and ridding in a car. His symptoms improve with lying down flat on back in bed, and st eroid injection. Uziel Rea does describe numbness of the bilateral feet; he reports numbness is to entire foot. He does denies any obvious weakness of the bilateral legs at t his time. Uziel Rea continues to have intermittent incontinence of bladder, this is a chronic condition. He denies bowel incontinence. Treatments for these complaints have included Physical Therapy, steroid injections, medicat ions, and surgeries. Uziel Rea is currently taking oxycodone 5mg in the morning. Blanka Rea continues to use gabapentin, now taking 600 mg TID for treatment of pain. He reports that he is planning to taper and discontinue this medication under guidance of his P CP in hopes of reducing his worsening tremor. Prior injections have included fluoroscopically-guided left L2-L3 transforaminal epidural s teroid injection as part of conservative management for chronic pain with lumbar radiculopat hy and degenerative disc disease completed on 08/09/[address] Jiménez. Uziel Rea reports that the injection was very helpful in reducing his pain for approximately 3 months . Uziel Rea's medications, allergies, past medical, surgical, social and family histor ies were reviewed and updated as appropriate. CURRENT MEDICATIONS: Current Outpatient Prescriptions Medication Sig Dispense Refill Ascorbic Acid (VITAMIN C WITH TOM HIPS) 500 MG tablet Take 500 mg by mouth Daily. Calcium Carbonate-Vit D-Min (CALCIUM 1200 PO) CHEW: Daily Cholecalciferol (VITAMIN D-3) 2000 units CAPS Take 2,000 Units by mouth 2 times daily. cyanocobalamin (VITAMIN B-12) 1000 MCG tablet Take 1,000 mcg by mouth Daily. DULoxetine (CYMBALTA) [address] capsule fish oil 1,000 mg capsule Take 2,000 mg by mouth 2 times daily. gabapentin (NEURONTIN) 600 MG tablet Take 600 mg by mouth 4 times daily. glucosamine-chondroitin (GLUCOSAMINE-CHONDROITIN DS) 500-400 MG tablet Take 1 tablet by mouth Daily. hydroxychloroquine (PLAQUENIL) 200 mg tablet Take 200 mg by mouth Daily. L-METHYLFOLATE PO Take 1 tablet by mouth Daily. leflunomide (ARAVA) 10 mg tablet Take 10 mg by mouth Daily. levalbuterol (XOPENEX HFA) 45 mcg/puff inhaler levothyroxine (SYNTHROID, LEVOTHROID) 75 MCG tablet Take 75 mcg by mouth every morning (before breakfast). lithium 300 mg capsule Take 300 mg by mouth 3 times daily. methotrexate (PF) 25 mg/mL injection Inject 0.9 mg into the muscle Once a week. METHYLCOBALAMIN PO Take 1,000 mcg by mouth Daily. Misc Natural Products (TURMERIC CURCUMIN) CAPS Take 2 capsules by mouth Daily. Multiple Vitamins-Minerals (A THRU Z ADVANCED) TABS omeprazole (PRILOSEC) 20 mg capsule Take 20 mg by mouth 2 times daily. oxyCODONE 10 MG TABS Take 0.5-2 tablets by mouth every 4 hours as needed. (Patient naomy ng differently: Take 60 mg by mouth.) 120 tablet 0 predniSONE (DELTASONE) 5 mg tablet PROAIR HFA 108 (90 Base) MCG/ACT inhaler propranolol (INDERAL LA) 160 mg SR capsule Take 160 mg by mouth Daily. simvastatin (ZOCOR) 40 mg tablet Take 40 mg by mouth Daily. sulfaSALAzine (AZULFIDINE) 500 MG EC tablet Take 500 mg by mouth 2 times daily. XELJANZ XR 11 MG tablet ziprasidone (GEODON) 80 MG capsule No current facility-administered medications for this visit. ALLERGIES: No Known Allergies REVIEW OF SYSTEMS: Review of Systems Constitutional: Negative for chills, diaphoresis, fever, malaise/fatigue and weight loss. HENT: Negative for congestion, ear discharge, ear pain, hearing loss, nosebleeds, sinus raj n, sore throat and tinnitus. Eyes: Negative for blurred vision, double vision, photophobia, pain, discharge and redness. Cataracts surgery bilaterally Respiratory: Negative for cough, hemoptysis, sputum production, shortness of breath, wheezi ng and stridor. Cardiovascular: Negative for chest pain, palpitations, orthopnea, claudication, leg swellin g and PND. Gastrointestinal: Negative for abdominal pain, blood in stool, constipation, diarrhea, hear tburn, melena, nausea and vomiting. Genitourinary: Negative for dysuria, flank pain, frequency, hematuria and urgency. Incontinence Musculoskeletal: Positive for back pain and joint pain. Negative for falls, myalgias and ne ck pain. Skin: Negative for itching and rash. Neurological: Positive for tingling, weakness and headaches. Negative for dizziness, tremor s, sensory change, speech change, focal weakness, seizures and loss of consciousness. Endo/Heme/Allergies: Negative for environmental allergies and polydipsia. Does not bruise/b leed easily. Psychiatric/Behavioral: Positive for depression. Negative for hallucinations, memory loss, substance abuse and suicidal ideas. The patient has insomnia. The patient is not nervous/anx ious. PHYSICAL EXAMINATION: Blood pressure 137/78, pulse 53, resp. rate 20, height 1.727 m (5' 8"), weight 99.4 kg (219 lb 2.2 oz). Body mass index is 33.32 kg/m. Vitals: 12/06/17 1310 BP: 137/78 Pulse: 53 Resp: 20 PainSc: 7 GENERAL: The patient is well developed and [...] exam shows no significant rashes or lesions. There are scars in the lum bar region, post surgical. NEUROLOGIC: The patient is awake, alert, and oriented. He follows simple and complex commands. His speech is fluent. He comprehends speech well. 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 The cranial nerves appear grossly intact. Sensation: decreased sensation to L5 dermatome bilaterally with monofilament testing REFLEX: RIGHT LEFT PATELLAR 3+ 3+ ACHILLES 2+ 2+ MOTOR EXAM: (5 IS NORMAL) * Indicates pain limited MUSCLE/ MOVEMENT: RIGHT LEFT Hip Flexion 5 5 Hip Extension 5 5 Knee Flexion 5 5 Knee Extension 5 4 Extensor Hallicus Longus 5 5 Ankle Dorsiflexion 5 4 Plantarflexion 5 5 Tenderness with palpation to left lumbar paraspinal muscles Patient localizes pain to appro ximate levels of L3-L4 and L4-L5 DATABASE: Lumbar x-ray competed 05/24/17 demonstrates: prior lumbar fusion L2-S1 with noted probable osseus neural foraminal narrowing at L2-3. ASSESSMENT: 1. Chronic left-sided low back pain with left-sided sciatica 2. Lumbar radiculopathy 3. History of lumbar fusion 4. Failed back surgical syndrome 5. Left leg weakness 6. Numbness of left foot 7. Sacroiliac joint dysfunction of both sides PLAN: 1. Today Uziel Rea returns to the clinic to review management of his back pain. He i ndicates that he would like to discuss having repeat injections. 2. Uziel Rea reports worsening pain to the lower back that radiates to he left lowe r extremity. In indicates that pain is effecting his quality of life. Uziel Rea repor ts having poor sleep due to pain, he reports he typically wakes at 1 am or 3 am due to pain. He reports that prior injection offered approximately 2 months of significantly reduced raj n with some noticeable reduction of pain for three months. 3. Uziel Rea is noted with left lower extremity weakness, he reports numbness consta ntly to bilateral feet, he has numbness to L5 dermatome distribution to bilateral lower extr emities with monofilament testing. Today we discussed that he may have a repeat conservative treatment with left L2-L3 transfo raminal epidural steroid injection for treatment of his back pain with radicular symptoms. Uziel Rea was advised that TFESIs are considered a temporary treatment given with the goal of reducing symptoms of pain. We discussed that the injection will not fix or cure the underlying cause of the pain. The goal of the steroid injection is to minimize swelling an d inflammation that may be causing symptoms of pain. We discussed that injections do not wor k for everyone. Steroid injections, if needed, may be repeated up to three times yearly. Uziel Rea will have a left L2-L3 transforaminal epidural steroid injection completed under fluoroscopy with Dr. Jiménez for treatment of left L2-L3 radiculopathy. Uziel Rea was instructed to keep a detailed pain diary of the response to treatment and will return the pain diary to our office 2 weeks after the procedure. 4. In regard to Uziel Rea report of poor sleep; we dicussed that with completion of the TFESI he may have improved sleep due to reduced pain. We dicussed that his he continues to have difficulty sleeping despite treatment of his back pain he should plan to discuss elisa atment for his insomnia with his PCP or a sleep specialist. 5. Uziel Rea reports that he plans to taper down, and potentially taper off his kay pentin in hopes of improving his worsening tremor. We dicussed that he may experience an inc rease in pain due to reduced gabapentin. Additionally, Uziel Rea reports he is working to taper to a reduced dose/frequency o f oxycodone. We discussed that over time, with the chronic use of opiate medication changes occur to the brain. We discussed that the perception and feelings of pain are changed. He wa s advised that the use of opiate medications may increase the number of pain receptors in an individuals brain drastically; consequently more medication is required to alleviate or red uce the same pain. Due to this, over time pain is likely to escalate. He will continue these medication changes under guidance of his PCP. 6. Uziel Rea will be scheduled to return in 3 months to review his post TFESI respon se. 7. Uziel Rea will continue care at pain clinic for treatment of SI joint pain and c onsideration of Radiofrequency ablation. Thank you for allowing me to be involved in the care of your patient. If you have any ques tions regarding the care of your patient please don't hesitate to call. Approximately 40 minutes was spent face to face with Uziel Rea, over half of which w as spent formulating and discussing their medical treatment plan. I, Logan Soto MD personally performed the services described in this documentation, as scribed by in my presence, Petra Prater RN and are both accurate and complete. Logan Soto MD - 12/06/2017 documented in this en counter Plan of Treatment +--------+---------+ + + + | Date | Type | Specialty | Care Team | Description | +--------+---------+ + + + | 12/07/ | Office | Neurology | Abundio Khanna MD | | | 2020 | Visit | | [address] [facility] [address] | | | | | | [place] | | | | | | [address] | | | | | | | | +--------+---------+ + + + documented as of this encounter Visit Diagnoses + + | Diagnosis | + + | Chronic left-sided low back pain with left-sided sciatica - Primary | + + | Lumbar radiculopathy Thoracic or lumbosacral neuritis or radiculitis, unspecified | + + | History of lumbar fusion | + + | Failed back surgical syndrome Other unspecified back disorder | + + | Left leg weakness Other musculoskeletal symptoms referable to limbs | + + | Numbness of left foot | + + | Sacroiliac joint dysfunction of both sides Disorders of sacrum | + + documented in this encounter
--- OUTSIDE RECORDS SUMMARY | ~2019-09-09 | XMS | Encounter Summary ---
Demographics + + + | Address | [address] | | | [place] [address] | + + + | Home Phone | | + + + | Preferred Language | Unknown | + + + | Marital Status | | + + + | Quaker Affiliation | Unknown | + + + | Race | Unknown | + + + | Ethnic Group | Unknown | + + + Author + + + | Author | [facility] | | | and [place]ana | + + + | Organization | [facility] | | | and [...] [place], [place] | | | | | [address] | | + + + + + | Mao Rea | ECON | Unknown | | + + + + + | Meredith Rea | ECON | Unknown | | + + + + + | Iqra Medina | ECON | [address] | | | | | [place], [place] | | | | | [address] | | + + + + + | Maldonado Rea | ECON | Unknown | | + + + + + Care Team Providers + +------+ + | Care Drier Name | Role | Phone | + +------+ + | Brandon Juarez MD | PCP | | + +------+ + Reason for Visit + + + | Reason | Comments | + + + | Follow-up | Post op | + + + Encounter Details +--------+---------+ + + + | Date | Type | Department | Care Team | Description | +--------+---------+ + + + | 03/07/ | Office | [facility] | Koby George MD | S/P lumbar fusion | | 2015 | Visit | NEUROSURGERY [address] | [address] | (Primary Dx) | | | | [address] | [place] [address] | | | | | [place] | [phone] | | | | | [address] | | | | | | [phone] | | | +--------+---------+ + + + [...] + + + | Blood Pressure | 127/66 | 03/07/2015 1:01 PM | | | | | PDT | | + + + + + | Pulse | 57 | 03/07/2015 1:01 PM | | | | | PDT | | + + + + + | Temperature | - | - | | + + + + + | Respiratory Rate | 16 | 03/07/2015 1:01 PM | | | | | PDT | | + + + + + | Oxygen Saturation | - | - | | + + + + + | Inhaled Oxygen | - | - | | | Concentration | | | | + + + + + | Weight | 89.8 kg (198 lb) | 03/07/2015 1:01 PM | | | | | PDT | | + + + + + | Height | 175.3 cm (5' 9") | 03/07/2015 1:01 PM | | | | | PDT | | + + + + + | Body Mass Index | 29.24 | 03/07/2015 1:01 PM | | | | | PDT [...] documented as of this encounter Progress Notes Koby George MD - 03/07/2015 2:01 PM PDTFormatting of this note might be different from t tu original. Koby George MD [address] [place] [address], [address] [place], [place] [id number] FAX: NEUROSURGERY FOLLOW-UP CHIEF COMPLAINT: Chief Complaint Patient presents with Follow-up Post op HISTORY OF PRESENT ILLNESS: The patient is a 69 y.o. male that had a lumbar fusion by me a round 3 months ago . He returns and overall is doing well. The patient complains of no sig nificant back or leg pain. He initially had some HF weakness on the left but this has impro sendy. The patient is still taking narcotics for pain management but only 1 tab or less per d ay. The patient has been walking as directed and has tried to remain active. Overall, the patient is pleased with his improvement. PAST MEDICAL HISTORY: Past Medical History Diagnosis Date Depression Arthritis rheumatoid Cancer (HCC) 2003 colon cancer Anxiety Hypothyroid Hard of hearing bilateral hearing aids PAST SURGICAL HISTORY: Past Surgical History Procedure Laterality Date Prostate surgery prostate trim Colectomy 2003 Hernia repair 2010 umbilical hernia in 2010 and 2003 right groin hernia Kidney stone surgery 1988 Knee surgery 1979 bilat knee arthroscopy Shoulder surgery 1979 shoulder arthroscopic Tonsillectomy Eye muscle surgery eye muscle correction Tooth extraction 05/2014 Lumbar spine surgery 12/02/2014 L2-3, L3-4, L4-5 LAIF, L2-3, L3-4, L4-5 Posterior Instrumentation, L2-3 Decompression; L aterality: N/A; Surgeon: Koby George MD; Location: [facility] MAIN OR CURRENT MEDICATIONS: Current Outpatient Prescriptions Medication Sig Dispense Refill alendronate (FOSAMAX) 70 mg tablet Take 70 mg by mouth Once a week. Ascorbic Acid (VITAMIN C WITH TOM HIPS) 500 MG tablet Take 500 mg by mouth Daily. Calcium Carbonate-Vit D-Min (CALCIUM 1200 PO) CHEW: Daily [facility] FOLIC ACID PO TABS: 1 mg cyclobenzaprine (FLEXERIL) 10 mg tablet Take 1 tablet by mouth every 8 hours as needed for Muscle spasms. 90 tablet 3 gabapentin (NEURONTIN) 400 mg capsule Take 800 mg by mouth 3 times daily. HYDROcodone-acetaminophen (NORCO) 5-325 mg per tablet Take 1-2 tablets by mouth every 4 hours as needed for Pain. 90 tablet 0 levothyroxine (SYNTHROID, LEVOTHROID) 75 MCG tablet Take 75 mcg by mouth every morning (before breakfast). lisinopril (PRINIVIL, ZESTRIL) 10 mg tablet Take 10 mg by mouth Daily. lithium 300 mg capsule Take 300 mg by mouth 3 times daily (with meals). medical marijuana (CANNABIS) inhalation Inhale 1-5 puffs [...] tablet Take 40 mg by mouth Daily. ziprasidone (GEODON) 80 MG capsule Take 80 mg by mouth 2 times daily (with breakfast & dinner). No current facility-administered medications for this visit. ALLERGIES: No Known Allergies SOCIAL HISTORY: The patient reports that he quit smoking about 34 years ago. His smoking use included Ciga rettes. He has a 40 pack-year smoking history. He has never used smokeless tobacco. He repor ts that he uses illicit drugs (Marijuana) about 14 times per week. He reports that he does n ot drink alcohol. FAMILY HISTORY: Family History Problem Relation Age of Onset Substance abuse Mother Mental illness Mother Suicide Mother Substance abuse Father Heart disease Father Heart attack Father INTERIM PHYSICAL EXAMINATION: Blood pressure 127/66, pulse 57, resp. rate 16, height 1.753 m (5' 9"), weight 89.812 kg (1 98 lb). Body mass index is 29.23 kg/(m^2). GENERAL: Uziel Rea is in no acute distress with unlabored respirations. SPINE: The patient s incisions are healing well without drainage, significant erythema, o r discharge EXTREMITIES: No lower extremity edema. NEUROLOGICAL EXAMINATION: MENTAL STATUS: The patient is awake, alert, and oriented. He follows simple and complex commands MOTOR EXAM: Motor strength is 5/5. RADIOGRAPHIC REVIEW: The patient s postoperative x-rays show stable instrumentation and alignment and were rev iewed with the patient today. There have been no interval changes since the immediate posto perative films. He had intraoperative subsidence at L4 but it has remained stable. Complet e fusion has not yet occurred, but this is normal and would not be expected at this time. ASSESSMENT: Encounter Diagnosis Name Primary? S/P lumbar fusion Yes Past Medical History Diagnosis Date Depression Arthritis rheumatoid Cancer (HCC) 2003 colon cancer Anxiety Hypothyroid Hard of hearing bilateral hearing aids PLAN: Overall, the patient is doing well. I was pleased to see at least some further improvement and expect more improvement with time. This was discussed with the patient today. I have increased the patient s activities further, and I would like the patient to continue to ad marti with activities as tolerated and as directed. The patient will follow-up with me in around 6 months for re-evaluation. ELECTRONICALLY SIGNED BY: Koby George MD, 03/07/2015 14:01 documented in this encounter Plan of Treatment +--------+---------+ + + + | Date | Type | Specialty | Care Team | Description | +--------+---------+ + + + | 12/07/ | Office | Neurology | Abundio Khanna MD | | | 2020 | Visit | | [address] | | | | | | [place] | | | | | | [address] | | | | | | | | +--------+---------+ + + + documented as of this encounter Results XR Lumbar Spine 2 or 3 Vw (10/21/2015 9:13 AM PST) + + | Specimen | + + | | + + + + + | Narrative | Performed At | + + + | XR LUMBAR SPINE 2 OR 3 VW 10/21/2015 9:13 AM HISTORY: Postop. | [facility] | | COMPARISON: Multiple priors. FINDINGS: Again visualized is | [facility] | | hardware for posterior fusion from L2 through L5 with interbody | [facility] | | hardware at these levels. Stable moderate subsidence is observed along | - IMAGING | | the superior endplate of L4. There is stable mild retrolisthesis of | | | L2 over L3. Stable mild anterolisthesis of L4 over L5 persists. Mild | | | to moderate spondylosis is observed. There is diffuse osteopenia. | | | Vertebral body height are preserved with no evidence for compression | | | fractures. Moderate disc narrowing is at L2-3. Multilevel facet | | | sclerosis and hypertrophy are present. Visualized ribs and pelvic | | | osseous structures show no acute findings. There is mild lumbar | | | spondylosis. A clip is noted in the lower abdomen. IMPRESSION - | | | Stable posterior fusion from L2 through L5 with moderate subsidence of | | | the interbody hardware at L3-4 into the superior endplate of L4. | | | Dictated and Signed by: Sen Polanco MD Electronically signed: | | | 10/21/2015 9:16 AM | | + + + + + | Procedure Note | + + | Alexis, Rad Results In - 10/21/2015 9:19 AM PST XR LUMBAR SPINE 2 OR 3 VW 10/21/2015 | | 9:13 AMHISTORY: Postop.COMPARISON: Multiple priors.FINDINGS:Again visualized is hardware | | for posterior fusion from L2 through L5 withinterbody hardware at these levels. Stable | | moderate subsidence is observed alongthe superior endplate of L4. There is stable mild | | retrolisthesis of L2 over L3.Stable mild anterolisthesis of L4 over L5 persists. Mild to | | moderate spondylosisis observed. There is diffuse osteopenia. Vertebral body height are | | preservedwith no evidence for compression fractures. Moderate disc narrowing is at | | L2-3.Multilevel facet sclerosis and hypertrophy are present. Visualized ribs andpelvic | | osseous structures show no acute findings. There is mild lumbarspondylosis. A clip is | | noted in the lower abdomen.IMPRESSION -Stable posterior fusion from L2 through L5 with | | moderate subsidence of theinterbody hardware at L3-4 into the superior endplate of | | L4.Dictated and Signed by: Sen Polanco MD Electronically signed: 10/21/2015 9:16 AM | |with no evidence for compression fractures. Moderate disc narrowing is at L2-3. | |Multilevel facet sclerosis and hypertrophy are present. Visualized ribs and | |pelvic osseous structures show no acute findings. There is mild lumbar | |spondylosis. A clip is noted in the lower abdomen. | | | |IMPRESSION - | |Stable posterior fusion from L2 through L5 with moderate subsidence of the | |interbody hardware at L3-4 into the superior endplate of L4. | | | |Dictated and Signed by: Sen Polanco MD | | Electronically signed: 10/21/2015 9:16 AM | + + + + + + + | Performing | Address | City/State/Zipcode | Phone Number | | Organization | | | | + + + + + | [address] | [address] | [place] | [phone] | | [facility] | | [address] | | | - IMAGING | | | | + + + + + documented in this encounter Visit Diagnoses + + | Diagnosis | + + | S/P lumbar fusion - Primary Arthrodesis status | + + documented in this encounter
--- OUTSIDE RECORDS SUMMARY | ~2019-09-09 | XMS | Encounter Summary ---
Demographics + + + | Address | [address] | | | [place] [address] | + + + | Home Phone | | + + + | Preferred Language | Unknown | + + + | Marital Status | | + + + | Taoist Affiliation | Unknown | + + + | Race | Unknown | + + + | Ethnic Group | Unknown | + + + Author + + + | Author | [facility] | | | and [place] | + + + | Organization | [facility] | | | and [place] | [...] [place], [place] | | | | | [address] | | + + + + + | Mao Rea | ECON | Unknown | | + + + + + | Meredith Rea | ECON | Unknown | | + + + + + | Iqra Medina | ECON | [address] | | | | | [place], [place] | | | | | [address] | | + + + + + | Maldonado Rea | ECON | Unknown | | + + + + + Care Team Providers + +------+ + | Care Technical Solutions Director Name | Role | Phone | + +------+ + | Sherie Vela PA-C | PCP | | + +------+ + Encounter Details +--------+ + + + + | Date | Type | Department | Care Team | Description | +--------+ + + + + | 05/24/ | [facility] | [facility] | Ender Mora | S/P lumbar fusion; | | 2017 | Encounter | MED CTR XRAY [address] | [address] | Lumbar | | | | [place] | [address] | radiculopathy; | | | | [place] [address] | [place], [place] | Foraminal stenosis | | | | [phone] | [address] | of lumbar region; | | | | | | 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; | | | | | | 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, lumbar | +--------+ + + + + Social [...] mg by mouth | | 0 | 04 | | | capsule | 3 times [...] + + + +---------+ + + | clotrimazole | Apply topically 2 | | 0 | | | | (LOTRIMIN) 1% cream | times daily. | | | | 7 | + + + +---------+ + + | desonide (DESOWEN) | 2 times daily. | | 0 | 04/04/20 | | | 0.05% cream | | | | 17 | 7 | + + + +---------+ + + | DULoxetine | Take 20 mg by mouth | | 0 | 05/09/20 | | | (CYMBALTA) [address] | 2 times daily. | | | 17 | 8 | | capsule | | | | | | + + + +---------+ + + | DULoxetine | Take 30 mg by mouth | | 0 | 02/18/20 | | | (CYMBALTA) [address] | 2 times daily. | | | 17 | 7 | | capsule | | | | | | + + + +---------+ + + | fish oil 1,000 mg | Take 2,000 mg by | | 0 | | | | capsule | mouth 2 times daily. | | | | 8 | + + + +---------+ + + | gabapentin | Take 800 mg by mouth | | 0 | | | | (NEURONTIN) 800 MG | 3 times daily. | | | | 8 | | tablet | | | | | | + + + +---------+ + + | hydroxychloroquine | Take 200 mg by mouth | | 0 | 02/22/20 | | | (PLAQUENIL) 200 mg | Daily. | | | 17 | 8 | | tablet | | | | | | + + + +---------+ + + | L-METHYLFOLATE PO | Take 1 tablet by | | 0 | | | | | mouth Daily. | | | | 8 | + + + +---------+ + + | lactulose 10 g/15 | Take 30 mLs by mouth | 240 mL | 3 | 05/05/20 | | | mL | 2 times daily. | | | 17 | 7 | | solutionIndications: | | | | | | | S/P lumbar fusion | | | | | | + [...] + + +---------+ + + | | Apply 1 Application | | 0 | 10/27/20 | | | lidocaine-prilocaine | topically as needed. | | | 16 | 7 | | (EMLA) cream | | | | | | + + + +---------+ + + | medical marijuana | Inhale 1-5 puffs | | 0 | | | | (CANNABIS) | into the lungs Twice | | | | 7 | | inhalation | daily as needed. | | | | | + + + +---------+ + + | methocarbamol | Take 1 tablet by | 90 | 3 | 02/27/20 | | | (ROBAXIN) 750 mg | mouth every 6 hours | tablet | | 17 | 7 | | tablet | as needed for Muscle | | | | | | | spasms. | | | | | + + + +---------+ + + | METHYLCOBALAMIN PO | Take 1,000 mcg by | | 0 | | | | | mouth Daily. | | | | 8 | + + + +---------+ + + | methylPREDNISolone | FOLLOW INSTRUCTIONS, | 21 | 0 | 04/05/20 | | | (MEDROL DOSEPAK) 4 | TAKE ORALLY TAT | tablet | | 17 | 7 | | mg tablet | | | | | | + + + +---------+ + + | omeprazole | Take 20 mg by mouth | | 0 | 02/08/20 | | | (PRILOSEC) 20 mg | every morning | | | 17 | 9 | | capsule | (before breakfast). | | | | | + + + +---------+ + + | oxyCODONE 10 MG | Take 0.5-2 tablets | 120 | 0 | 05/05/20 | | | TABSIndications: S/P | by mouth every 4 | tablet | | 17 | 8 | | lumbar fusion | hours as needed. | | | | | + + + +---------+ + + | propranolol | Take 20 mg by mouth | | 0 | | | | (INDERAL) 20 MG | 6 times daily. | | | | 7 | | tablet | | | | | | + + + +---------+ + + | sulfaSALAzine | Take 500 mg by mouth | | 0 | 01/25/20 | | | (AZULFIDINE) 500 MG | 2 times daily. | | | 17 | 9 | | EC tablet | | | | | | + + + +---------+ + + | tamsulosin | Take 1 capsule by | 30 | 1 | 02/27/20 | | | (FLOMAX) 0.4 mg CAPS | mouth daily (after | capsule | | 17 | 7 | | | breakfast). | | | | | + + + +---------+ + + | ziprasidone | Take 80 mg by mouth | | 0 | 11/12/19 | | | (GEODON) 80 MG | 2 times daily (with | | | 17 | 7 | | capsule | breakfast & dinner). [...] [place] | | | | | | [address] | | | | | | | | +--------+---------+ + + + documented as of this encounter Procedures + +--------+ + + + | Procedure Name | Priori | Date/Time | Associated Diagnosis | Comments | | | ty | | | | + +--------+ + + + | XR LUMBAR SPINE 2 OR | Routin | 05/24/2017 | S/P lumbar fusion | Results for this | | 3 VW | e | 9:29 AM | Lumbar | procedure are in the | | | | PDT | radiculopathy | results section. | | | | | Foraminal stenosis | | | | | | of lumbar region | | | | | | 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 | | | | | | 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, lumbar | | + +--------+ + + + documented in this encounter Results XR Lumbar Spine 2 or 3 Vw (05/24/2017 9:29 AM PDT) + + | Specimen | + + | | + + + + + | Narrative | Performed At | + + + | EXAM:XR LUMBAR SPINE 2 OR 3 VW CLINICAL HISTORY: Back pain | [facility] | | COMPARISON: Lumbar spine x-rays dating to February 23, 2017 FINDINGS: | | | Frontal and lateral views of the lumbar spine. Posterior and | | | interbody fusion changes from L2 through the sacrum. Stable intact | | | hardware. Stable position of the interbody graft markers. Stable | | | spinal alignment. No interval compression deformities. There is a | | | large gas-filled structure in the mid abdomen. This is of | | | uncertain etiology or significance. The remainder of the | | | gastrointestinal tract within the [id number] is unremarkable. | | | IMPRESSION - No radiographic evidence for an interval | | | complication. Gaseous collection could be within the stomach given | | | the unremarkable appearance of the remaining visible | | | gastrointestinal tract. Dictated and Signed by: Maxim Bah, | | | Electronically signed: 05/24/2017 9:56 AM | | + + + + + | Procedure Note | + + | Alexis, Rad Results In - 05/24/2017 9:59 AM PDT EXAM:XR LUMBAR SPINE 2 OR 3 VW | | | | CLINICAL HISTORY: Back pain | | | | COMPARISON: Lumbar spine x-rays dating to February 23, 2017 | | | | FINDINGS: Frontal and lateral views of the lumbar spine. Posterior and | | interbody fusion changes from L2 through the sacrum. Stable intact hardware. | | Stable position of the interbody graft markers. Stable spinal alignment. No | | interval compression deformities. There is a large gas-filled structure in the | | mid abdomen. This is of uncertain etiology or significance. The remainder of | | the gastrointestinal tract within the [id number] is unremarkable. | | | | IMPRESSION - | | | | No radiographic evidence for an interval complication. | | | | Gaseous collection could be within the stomach given the unremarkable appearance | | of the remaining visible gastrointestinal tract. | | | | Dictated and Signed by: Maxim Bah MD | | Electronically signed: 05/24/2017 9:56 AM | + + + +---------+ + + | Performing | Address | City/State/Zipcode | Phone Number | | Organization | | | | + +---------+ + + | [facility] | | | | + +---------+ + + documented in this encounter Visit Diagnoses + + | Diagnosis | + + | S/P lumbar fusion Arthrodesis status | + + | Lumbar radiculopathy Thoracic or lumbosacral neuritis or radiculitis, unspecified | + + | Foraminal stenosis of lumbar region Spinal stenosis, lumbar region, without | | neurogenic claudication | + + | Spondylolisthesis of lumbar region Acquired spondylolisthesis | + + | Degenerative disc disease, lumbar Degeneration of lumbar or lumbosacral | | intervertebral disc | + + documented in this encounter"
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
--- OUTSIDE RECORDS SUMMARY | ~2019-09-09 | XMS | Encounter Summary ---
Demographics + + + | Address | [address] | | | [place] [address] | + + + | Home Phone | | + + + | Preferred Language | Unknown | + + + | Marital Status | | + + + | Caodaism Affiliation | Unknown | + + + | Race | Unknown | + + + | Ethnic Group | Unknown | + + + Author + + + | Author | [facility] | | | and [place] | + + + | Organization | [facility] | | | and Carlosana [...] [place], [place] | | | | | [address] | | + + + + + | Mao Rea | ECON | Unknown | | + + + + + | Meredith Rea | ECON | Unknown | | + + + + + | Iqra Medina | ECON | [address] | | | | | [place], [place] | | | | | [address] | | + + + + + | Maldonado Rea | ECON | Unknown | | + + + + + Care Team Providers + +------+ + | Care Dag Sprayer Name | Role | Phone | + [...] | Lumbar | Tino, | [address] | | | | | radiculopath | Luis Carlos Lerner MD | [place], | | | | | y | [address] | [place] | | | | | Procedures | [address] [place] | [address] | | | | | [place] INJECT | [place] | Phone: | | | | | ANES/STEROID | [address] | [phone] | | | | | FORAMEN | Phone: | Fax: | | | | | LUMBAR/SACRA | [phone] | [phone] | | | | | L [address] IMG | Fax: | | | | | | GUIDE ,1 | [phone] | | | | | | LEVEL NC | | | | | | | TRIAMCINOLON | | | | | | | E ACET INJ | | | | | | | NOS, 10 MG | | | | | | | APPT 03/24 | | | | | | | Left L2-L3 | | | | | | | [facility] | | | | | | | referral | | | | | | | from | | | | | | | Charles Diaz | | | +--------+--------+ + + + + Encounter Details +--------+ + + + + | Date | Type | Department | Care Team | Description | +--------+ + + + + | 03/24/ | Hospital | [facility] | Luis Carlos Jiménez | Lumbar radiculopathy | | 2018 | Encounter | MED CTR XRAY [address] | | | | | [address] [place] | [address] [place], [place] | | | | | [place] [address] | [id number] | | | | | [phone] | | | | | | | [employer] [facility] | | +--------+ + + + + [...] +---------+ + + | Blood Pressure | 141/82 | 03/24/2018 12:00 PM | | | | | PDT | | + +---------+ + + | Pulse | - | - | | + [...] 4 TO 6 | | 0 | 02//20 | | | (XOPENEX HFA) 45 | HOURS NEEDED for | | | 18 | | | mcg/puff inhaler | Shortness of | | | | | | | Breath. | | | | | + + + +---------+ + + | lithium 300 mg | Take 300 mg by mouth | | 0 | 02/08/20 | | | capsule | 3 times [...] mg by mouth | | 0 | 10/22/20 | | | (CYMBALTA) [address] | Daily. | | | 17 | 9 | | capsule | | [...] mg by mouth | | 0 | 12/02/19 | | | (NEURONTIN) 600 MG | 3 times daily. | | | 18 | 8 | | tablet | | [...] + + + +---------+ + + | PROAIR HFA 108 (90 | | | 0 | 11/18/19 | | | Base) MCG/ACT | | | | 18 | 8 | | inhaler | | | | | | + + + +---------+ + + | propranolol | Take 160 mg by mouth | | 0 | | | | (INDERAL LA) 160 mg | Daily. | | | | 9 | | SR capsule | | | | | | + + + +---------+ + + | REXULTI 3 MG | Take 3 mg by mouth | | 0 | 02/07/20 | | | tablet | Daily. | | | 18 | 8 | + + + +---------+ + + | sulfaSALAzine | Take 500 mg by mouth | | 0 | 01/25/20 | | | (AZULFIDINE) 500 MG | 2 times daily. | | | 17 | 9 | | EC tablet | | | | | | + + + +---------+ + + | Tocilizumab | Inject into the | | 0 | | | | (ACTEMRA IV) | vein. | | | | 8 | + [...] BASHIR | | | | | | [id number] | | | | | | | | +--------+---------+ + + + documented as of this encounter Procedures + +--------+ + + + | Procedure Name | Priori | Date/Time | Associated Diagnosis | Comments | | | ty | | | | + +--------+ + + + | FL EPIDURAL STEROID | Routin | 03/24/2018 | Lumbar | Results for this | | INJECTION LUMBAR | e | 11:46 AM | radiculopathy | procedure are in the | | TRANSFORAMINAL | | PDT | | results section. | + +--------+ + + + documented in this encounter Results FL KELLY Lumbar Transforaminal (03/24/2018 11:46 AM PDT) + + | Specimen | + + | | + + + + + | Narrative | Performed At | + + + | 03/24/2018 | [facility] | | Transforaminal Epidural [...] 1% lidocaine and 1 mL of 10 mg/mL | | | Dexamethasone was infused. The patient tolerated the procedure well | | | without complications. Pre- and post-procedure blood pressures were | | | stable. The patient was given verbal as well as written follow-up | | | instructions. Prior to the start of the procedure, the following | | | were performed and/or verified, including correct patient identity, | | | correct site/side marked and visible, agreement on the procedure to be | | | done, correct patient positioning and an accurate procedure consent | | | form. Any safety precautions based on clinical history and/or | | | medication use have been addressed. I personally performed the | | | procedure above. Estimated blood loss: MinimalComplications: | | | NoneFindings: As expectedAnesthesia: Local 1% Lidocaine | | |precautions based on clinical history and/or medication use have been | | |addressed. | | |I personally performed the procedure above. | | | | | |Estimated blood loss: Minimal | | |Complications: None | | |Findings: As expected | | |Anesthesia: Local 1% Lidocaine | | | | | + + + + +---------+ + + | Performing | Address | City[facility] | Phone Number | | Organization | [...] dexamethasone (PF) 10 mg/mL | Given | 03/24/20 | 10 mg | | | | injection 10 mg 10 mg, Other, | | 18 12:00 | | | | | ONCE, 03/24/18 at 1145, For 1 | | PM PDT | | | | | dose | | | | | | + +--------+ +-------+------+------+ +---+---+ | | | +---+---+ + +-------+ +-------+---+---+ | iohexol (OMNIPAQUE 300) 300 | Given | 03/24/20 | 4 mLs | | | | mg/mL injection 4 mL 4 mL, | | 18 11:55 | | | | | Other, ONCE, 03/24/18 at 1145, | | AM PDT | | | | | For 1 dose | | | | | | + +-------+ +-------+---+---+ +---+---+ | | | +---+---+ + +-------+ +-------+---+---+ | lidocaine (PF) 1% injection 2 | Given | 03/24/20 | 2 mLs | | | | mL 2 mL, Other, ONCE, Fri | | 18 12:00 | | | | | 03/24/18 at 1145, For 1 dose | | PM PDT | | | | + +-------+ +-------+---+---+ +---+---+ | | | +---+---+ + +-------+ +-------+---+ + | lidocaine buffered 1.3% | Given | 03/24/20 | 3 mLs | | Other | | injection 3 mL 3 mL, | | 18 11:50 | | | (Comment | | Intradermal, ONCE, 03/24/18 at | | AM PDT | | | ) | | 1145, For 1 dose | | | | | | + +-------+ +-------+---+ + +---+---+ | | | +---+---+ documented in this encounter"
--- OUTSIDE RECORDS SUMMARY | ~2019-09-09 | XMS | Encounter Summary ---
Demographics + + + | Address | [address] | | | [place] [address] | + + + | Home Phone | | + + + | Preferred Language | Unknown | + + + | Marital Status | | + + + | Scientologist Affiliation | Unknown | + + + | Race | Unknown | + + + | Ethnic Group | Unknown | + + + Author + + + | Author | [facility] | | | and Carlosana | + + + | Organization | [facility] | | | and [...] [place], [place] | | | | | [address] | | + + + + + | Mao Rea | ECON | Unknown | | + + + + + | Meredith Rea | ECON | Unknown | | + + + + + | Iqra Medina | ECON | [address] | | | | | [place], [place] | | | | | [address] | | + + + + + | Maldonado Rea | ECON | Unknown | | + + + + + Care Team Providers + +------+ + | Care Mantel Craftsman Name | Role | Phone | + +------+ + | Sherie Vela PA-C | PCP | | + +------+ + Reason for Visit + + + | Reason | Comments | + + + | Parkinson's Disease | consultation and evaluation | + + + Evaluate & Treat (Routine) +--------+--------+ + + + + | Status | Reason | Specialty | Diagnoses / | Referred By | Referred To | | | | | Procedures | Contact | Contact | +--------+--------+ + + + + | Closed | | Neurology | Diagnoses | iMgueuna, | Samir, | | | | | Parkinsons | VIRY Rehman | Jarvis Qiu MD | | | | | ([facility]) | [address] | | | [address] | | | | [address] | [place] [address] | | | | | | [place], | [address] | | | | | | [place] [address] | [place] | | | | | | Phone: | [phone] Phone: | | | | | | [phone] | [phone] | | | | | | Fax: | Fax: | | | | | | [phone] | [phone] | +--------+--------+ + + + + Encounter Details +--------+---------+ + + + | Date | Type | Department | Care Team | Description | +--------+---------+ + + + | 07/12/ | Office | [facility] [place] | Jarvis Dawson, | Probable idiopathic | | 2018 | Visit | NEUR[facility]Y [place] | [address] | Parkinson's disease | | | | [address], | [place] [address] | ([facility]),symptoms | | | | [address] [place] | [place] | worsened with | | | | [place] [address] | [address] | antipsychotic | | | | [phone] | | medicines (Primary | | | | | | Dx); Parkinsonian | | | | | | tremor ([facility]); | | | | | | Obstructive sleep | | | | | | apnea of adult; REM | | | | | | sleep behavior | | | | | | disorder; Mild | | | | | | cognitive impairment | +--------+---------+ + + + Social History [...] + + + | Blood Pressure | 130/70 | 07/12/2018 2:00 PM | | | | | PDT | | + + + + + | Pulse | 65 | 07/12/2018 2:00 PM | | | | | PDT | | + + + + + | Temperature | 36.7 C (98.1 F) | 07/12/2018 2:00 PM | | | | | PDT | | + + + + + | Respiratory Rate | - | - | | + + + + + | Oxygen Saturation | 96% | 07/12/2018 2:00 PM | | | | | PDT | | + + + + + | Inhaled Oxygen | - | - | | | Concentration | | | | + + + + + | Weight | 102.1 kg (225 lb) | 07/12/2018 2:00 PM | | | | | PDT | | + + + + + | Height | 172.7 cm (5' 8") | 07/12/2018 2:00 PM | | | | | PDT | | + + + + + | Body Mass Index | 34.21 | 07/12/2018 2:00 PM | | | | | PDT [...] of this encounter Patient Instructions Patient Instructions Jarvis Dawson MD - 07/12/2018 3:22 PM PDT Common Symptoms of Parkinson Disease You have Parkinson disease. This disease is caused by a loss of a chemical in your brain ne eded to help control movement and balance. For reasons that are not clear,cells that make this brain chemical stop working. This causes symptoms. This sheet tells you more about symp toms of Parkinson disease. How symptoms may affect you Parkinson disease symptoms vary for each person. You may have many severe symptoms. Or you may have only a few mild ones. Your symptoms may involve only one side of your body. Or they may involve both sides of your body. Also, your symptoms may foreign exchange clerk time. And you may have different symptoms at different stages. Your symptoms may also get worse as your diseas e progresses. Symptoms that affect movement and balance These can include: Tremor (shaking). This is a very common symptom. Most often, a hand or arm shakes on one or both sides of the body. Tremor may also affect other areas of the body, such as a leg, a foot, or the chin. Shaking may lessen when the affected part is used. It may worsen when at rest. Rigidity. This refers to having stiff or tight muscles. This happens because the muscles don t get the signal to relax. Rigidity may cause musclepain and cramping. It may also cause a stooped posture. Problems with balance. This can affect how well you stand and move. This can also increa se your risk of falls. Other symptoms Other symptoms of Parkinson disease include speaking too softly and in a monotone, writing that gets shaky and smaller across the page, and trouble swallowing. They also include const ipation, oily skin, and changes in blood pressure. Memory loss and other problems with think ing can occur later in the disease progression. Bradykinesia or slow movement can also o ccur. This can cause problems with actions such as getting out of chairs and beds. Walking m ay be limited to short, shuffling steps. You may feel "frozen," or unable to move. Blinking, facial expressions, swinging of your arms when walking, and other "unconscious movements" a re also slowed down. Some people may have problems with their urination and others may also feel depressed. Date Last Reviewed: 12/01/201719991246-2506 [employer]. [address] [place] [address], [place] [address]. All righ ts reserved. This information is not intended as a substitute for professional medical care. Always follow your healthcare professional's instructions. You may find more information about Parkinson disease and it's related diseases at the [facility] on the web. Electronically signed by Jarvis Dawson MD at 2017 3:23 PM PDT documented in this encounter Plan of Treatment [...] [place] | | | | | | [address] | | | | | | | | +--------+---------+ + + + documented as of this encounter Procedures + +--------+ + + + | Procedure Name | Priori | Date/Time | Associated Diagnosis | Comments | | | ty | | | | + +--------+ + + + | IMAGING REPORT - | | 06/30/2018 | | Results for this | | EXTERNAL SCAN | | 12:00 AM | | procedure are in the | | | | PDT | | results section. | + +--------+ + + + | DIAGNOSTIC REPORT - | | 02/09/2018 | | Results for this | | EXTERNAL SCAN | | 12:00 AM | | procedure are in the | | | | PDT | | results section. | + +--------+ + + + documented in this encounter Results IMAGING REPORT - EXTERNAL SCAN (06/30/2018 12:00 AM PDT) + + + | Narrative | Performed At | + + + | Ordered by an | | | unspecified provider. | | + + + DIAGNOSTIC REPORT - EXTERNAL SCAN (02/09/2018 12:00 AM PDT) + + + | Narrative | Performed At | + + + | Ordered by an | | | unspecified provider. 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
--- OUTSIDE RECORDS SUMMARY | ~2019-09-09 | XMS | Encounter Summary ---
Demographics + + + | Address | [address] | | | [place] [address] | + + + | Home Phone | | + + + | Preferred Language | Unknown | + + + | Marital Status | | + + + | Jew Affiliation | Unknown | + + + | Race | Unknown | + + + | Ethnic Group | Unknown | + + + Author + + + | Author | [facility] | | | and Carlosana | + + + | Organization | [facility] | | | and Carlosana [...] [place], [place] | | | | | [address] | | + + + + + | Mao Rea | ECON | Unknown | | + + + + + | Meredith Rea | ECON | Unknown | | + + + + + | Iqra Medina | ECON | [address] | | | | | [place], [place] | | | | | [address] | | + + + + + | Maldonado Rea | ECON | Unknown | | + + + + + Care Team Providers + +------+ + | Care Isotope Hydrologist Name | Role | Phone | + +------+ + | Brandon Juarez MD | PCP | | + +------+ + Reason for Visit +---------+ + | Reason | Comments | +---------+ + | Post Op | | +---------+ + Encounter Details +--------+---------+ + + + | Date | Type | Department | Care Team | Description | +--------+---------+ + + + | 03/08/ | Office | [facility] | Ender Mora | S/P lumbar fusion | | 2017 | Visit | NEUROSURGERY [address] | [address] | (Primary Dx); | | | | [address] | [address] | Synovial cyst of | | | | [place], [place] | [place] | lumbar facet joint; | | | | [address] | [address] | Pseudoarthrosis of | | | | [phone] | | lumbar spine | +--------+---------+ + + + Social History [...] + + + | Blood Pressure | 125/78 | 03/08/2017 11:39 AM | | | | | PDT | | + + + + + | Pulse | 83 | 03/08/2017 11:39 AM | | | | | PDT [...] + + + + | Weight | 87.5 kg (193 lb) | 03/08/2017 11:39 AM | | | | | PDT | | + + + + + | Height | 172.7 cm (5' 8") | 03/08/2017 11:39 AM | | | | | PDT | | + + + + + | Body Mass Index | 29.35 | 03/08/2017 11:39 AM | | | | | PDT [...] of this encounter Patient Instructions Patient Instructions Ender Mora PA-C - 03/08/2017 12:07 PM PDTToday we increased her pain medication to include 5-20 mg of oxycodone every 4 hours as needed for pain. We ronald [place] provided you a new prescription and our office will also call your pharmacy to let them know of the change. Please keep your appointment that is scheduled in 2 weeks. Continue to slowly increase your activities as we discussed today documented in this encounter Progress Notes Annika Lindo RN - 03/08/2017 2:12 PM PDTStaples removed per protocol. Incisions well a pproximated. No redness, swelling or drainage noted. All questions answered at this time.Dayana ctronically signed by Annika Lindo RN at 03/08/2017 2:13 PM Ender Doherty PA- C - 03/08/2017 12:09 PM PDT [address] [place] [address] FAX: NEUROSURGERY FOLLOW-UP CHIEF COMPLAINT: Chief Complaint Patient presents with Post Op HISTORY OF PRESENT ILLNESS: The patient is a 71 y.o. male that had a Lumbar fusion and jeni dware revision for Pseudoarthrosis and synovial cyst around 2 weeks ago. He returns and danelle wallace is doing fair. The patient complains of Problems with pain control. The patient was d ischarged home on 10 mg of oxycodone every 4 hours as needed for pain. He has needed to inc rease that and has requested to increase it to up to 20 mg every 4 hours for pain. He has a history of rheumatoid arthritis and is off of all of his rheumatoid arthritis medications. He has been active at home but is unable to sleep secondary to pain. His daytime pain is a lso quite bothersome. He has not noted any worsening neurologic symptoms. He has had no in juries or falls. Been excessively sedated on the medication. The patient has been passing gas and having bowel movements. He has not been progressing his activities too quickly or t o slowly. The patient has been walking as much as directed. He is still taking pain medic ations at this point. The patient has had no issues with his surgical site. CURRENT MEDICATIONS: Current Outpatient Prescriptions Medication Sig Dispense Refill Ascorbic Acid (VITAMIN C WITH TOM HIPS) 500 MG tablet Take 500 mg by mouth Daily. Calcium Carbonate-Vit D-Min (CALCIUM 1200 PO) CHEW: Daily Cholecalciferol (VITAMIN D-3) 2000 units CAPS Take 2,000 Units by mouth 2 times daily. DULoxetine (CYMBALTA) [address] capsule Take 30 mg by mouth 2 times daily. fish oil 1,000 mg capsule Take 2,000 mg by mouth 2 times daily. gabapentin (NEURONTIN) 600 MG tablet Take 800 mg by mouth 4 times daily. glucosamine-chondroitin (GLUCOSAMINE-CHONDROITIN DS) 500-400 MG tablet Take 1 tablet by mouth Daily. hydroxychloroquine (PLAQUENIL) 200 mg tablet Take 200 mg by mouth 2 times daily. L-METHYLFOLATE PO Take 1 tablet by mouth Daily. lactulose 10 g/15 mL solution Take 30 mLs by mouth 2 times daily. 240 mL 3 levothyroxine (SYNTHROID, LEVOTHROID) 75 MCG tablet Take 75 mcg by mouth every morning (before breakfast). lidocaine-prilocaine (EMLA) cream Apply 1 Application topically as needed. lithium 300 mg capsule Take 300 mg by mouth Daily. medical marijuana (CANNABIS) inhalation Inhale 1-5 puffs into the lungs Twice daily as needed. methocarbamol (ROBAXIN) 750 mg tablet Take 1 tablet by mouth every 6 hours as needed fo r Muscle spasms. 90 tablet 3 METHYLCOBALAMIN PO Take 1,000 mcg by mouth Daily. Misc Natural Products (TURMERIC CURCUMIN) CAPS Take 1 capsule by mouth Daily. Multiple Vitamins-Minerals (A THRU Z ADVANCED) TABS omeprazole (PRILOSEC) 20 mg capsule Take 20 mg by mouth 2 times daily. oxyCODONE 10 MG TABS Take 0.5-2 tablets by mouth every 4 hours as needed. 120 tablet 0 propranolol (INDERAL) 20 MG tablet Take 20 mg by mouth 3 times daily. simvastatin (ZOCOR) 40 mg tablet Take 40 mg by mouth Daily. sulfaSALAzine (AZULFIDINE) 500 MG EC tablet Take 1,000 mg by mouth Daily. tamsulosin (FLOMAX) 0.4 mg CAPS Take 1 capsule by mouth daily (after breakfast). 30 cap marcellus 1 ziprasidone (GEODON) 80 MG capsule Take 80 mg by mouth 2 times daily (with breakfast & dinner). No current facility-administered medications for this visit. ALLERGIES: No Known Allergies SOCIAL HISTORY: The patient reports that he quit smoking about 36 years ago. His smoking use included Ciga rettes. He has a 40 pack-year smoking history. He has never used smokeless tobacco. He repor ts that he does not drink alcohol or use illicit drugs. INTERIM PHYSICAL EXAMINATION: Blood pressure 125/78, pulse 83, height 1.727 m (5' 8"), weight 87.544 kg (193 lb). Body ma ss index is 29.35 kg/(m^2). GENERAL: Uziel Rea is in no acute distress with unlabored respirations. SPINE: The patient s Incisions are healing with some mild irritation and erythema around the wound edges. Marilu are in placed. They will be removed today. EXTREMITIES: No lower extremity edema. NEUROLOGICAL EXAMINATION: MENTAL STATUS: The patient is awake, alert, and oriented. He follows simple and complex commands MOTOR EXAM: Motor strength is 5/5 in lower extremities. SENSORY EXAM: The sensory examination is Unremarkable when compared to the preoperative exa m. RADIOGRAPHIC REVIEW: The patient s x-rays show stable instrumentation and alignment and were reviewed with the patient today. There have been no interval changes since the immediate postoperative films . Complete fusion has not yet occurred, but this is normal and would not be expected at thi s time. ASSESSMENT: Encounter Diagnoses Name Primary? S/P lumbar fusion Yes Synovial cyst of lumbar facet joint Pseudoarthrosis of lumbar spine Past Medical History Diagnosis Date Depression Arthritis rheumatoid Cancer (HCC) 2004 colon cancer Anxiety Hypothyroid Hard of hearing bilateral hearing aids Rheumatoid arthritis (HCC) Tremor Sleep apnea no CPAP Lumbar radiculopathy Degenerative disc disease, lumbar PLAN: Overall, the patient is doing okay. Patient is having issues with pain control but I belie ve this is done only postsurgical but also rheumatoid arthritis related with being off of al l of his medications. He has not had progressive neurologic issues. Today we increased his pain medication to allow up to 20 mg of oxycodone every 4 hours as n eeded for pain. A new prescription was given to the patient. Our staff will also call his pharmacist to inform them of the new directions on the medication. Hopefully this will make refills simpler without confusion. In addition I would like the patient to slowly progress his activities as we discussed today. He'll keep his scheduled appointment in [address]ples were removed. He should call if he has increasing problems ELECTRONICALLY SIGNED BY: Ender Mora PA-C, 03/08/2017 12:09 documented in this encounter Plan of Treatment +--------+---------+ + + + | Date | Type | Specialty | Care Team | Description | +--------+---------+ + + + | 12/07/ | Office | Neurology | Abundio Khanna MD | | | 2019 | Visit | | [address] | | | | | | [place] | | | | | | [address] | | | | | | | | +--------+---------+ + + + documented as of this encounter Visit Diagnoses + + | Diagnosis | + + | S/P lumbar fusion - Primary Arthrodesis status | + + | Synovial cyst of lumbar facet joint Cyst of bone (localized), unspecified | + + | Pseudoarthrosis of lumbar spine Nonunion of fracture | + + documented in this encounter
--- OUTSIDE RECORDS SUMMARY | ~2019-09-09 | XMS | Encounter Summary ---
Demographics + + + | Address | [address] | | | [place] [address] | + + + | Home Phone | | + + + | Preferred Language | Unknown | + + + | Marital Status | | + + + | Orthodoxy Affiliation | Unknown | + + + | Race | Unknown | + + + | Ethnic Group | Unknown | + + + Author + + + | Author | [facility] | | | and [place]ana | + + + | Organization | [facility] | | | and [place]ana | [...] [place], [place] | | | | | [address] | | + + + + + | Mao Rea | ECON | Unknown | | + + + + + | Meredith Rea | ECON | Unknown | | + + + + + | Iqra Medina | ECON | [address] | | | | | [place], [place] | | | | | [address] | | + + + + + | Maldonado Rea | ECON | Unknown | | + + + + + Care Team Providers + +------+ + | Care Video Game Animator Name | Role | Phone | + +------+ + | Brandon Juarez MD | PCP | | + +------+ + Reason for Referral Diagnostic/Screening (Routine) +--------+--------+ + + + + | Status | Reason | Specialty | Diagnoses / | Referred By | Referred To | | | | | Procedures | Contact | Contact | +--------+--------+ + + + + | Closed | | Radiology | Diagnoses | Charles | [facility]ri | | | | | Lumbalgia | Logan Rios MD | [address] | | | | | Lumbar | [address] | [place], | | | | | radiculopath | [address] | [place] | | | | | y Lumbar | [place], | [address] | | | | | spondylosis | [place] [address] | Phone: | | | | | Left leg | Phone: | [phone] | | | | | weakness | [phone] | Fax: | | | | | Lower | Fax: | [phone] | | | | | extremity | [phone] | | | | | | numbness | | | | | | | Procedures | | | | | | | MRI Lumbar | | | | | | | Spine wo | | | | | | | Contrast | | | +--------+--------+ + + + + Reason for Visit Diagnostic/Screening (Routine) +--------+--------+ + + + + | Status | Reason | Specialty | Diagnoses / | Referred By | Referred To | | | | | Procedures | Contact | Contact | +--------+--------+ + + + + | Closed | | Radiology | Diagnoses | Soto, | [facility] | | | | | Lumbalgia | Logan Rios MD | [address] | | | | | Lumbar | [address] | [place], | | | | | radiculopath | [address] | [place] | | | | | y Lumbar | [place], | [address] | | | | | spondylosis | [place] [address] | Phone: | | | | | Left leg | Phone: | [phone] | | | | | weakness | [phone] | Fax: | | | | | Lower | Fax: | [phone] | | | | | extremity | [phone] | | | | | | numbness | | | | | | | Procedures | | | | | | | MRI Lumbar | | | | | | | Spine wo | | | | | | | Contrast | | | +--------+--------+ + + + + Encounter Details +--------+ + + + + | Date | Type | Department | Care Team | Description | +--------+ + + + + | 06/26/ | Hospital | [facility] | Logan Soto, | Lumbalgia; Lumbar | | 2013 | Encounter | [facility] MRI [address] | MD [address] | radiculopathy; | | | | [address] [place], | [place], [place] | Lumbar spondylosis; | | | | [place] [address] | [address] | Left leg weakness; | | | | [phone] | | Lower extremity | | | | | | numbness | +--------+ + + + + Social History + +-------+ +--------+------+ | Tobacco Use | Types | Packs/Day | Years | Date | | | | | Used | | + +-------+ +--------+------+ | Former Smoker | | 2 | 20 | | + +-------+ +--------+------+ + +---+---+---+ | Smokeless Tobacco: | | [...] + + + +---------+ + + | InFLIXimab | SOLR: 8 vials | | 0 | 07/14/20 | | | (REMICADE IV) | | | | 12 | 5 [...] + + + +---------+ + + | olmesartan | Take 5 mg by mouth | | 0 | 07/14/20 | | | (BENICAR) 5 MG | Daily. | | | 12 | [...] by mouth | | 0 | | 12/22/201 | | (GEODON) 80 MG | 2 [...] [place] | | | | | | [address] | | | | | | | | +--------+---------+ + + + documented as of this encounter Procedures + +--------+ + + + | Procedure Name | Priori | Date/Time | Associated Diagnosis | Comments | | | ty | | | | + +--------+ + + + | MRI LUMBAR SPINE WO | Routin | 06/26/2014 | Lumbalgia Lumbar | Results for this | | CONTRAST | e | 3:02 PM | radiculopathy | procedure are in the | | | | PDT | Lumbar spondylosis | results section. | | | | | Left leg weakness | | | | | | Lower extremity | | | | | | numbness | | + +--------+ + + + documented in this encounter Results MRI Lumbar Spine wo Contrast (06/26/2014 3:02 PM PDT) + + | Specimen | + + | | + + + + + | Narrative | Performed At | + + + | MRI LUMBAR SPINE WO CONTRAST. 06/26/2014 2:35 PM HISTORY: Back | MISCELANIOUS | | pain with left leg weakness and numbness. COMPARISON: Lumbar | LAB | | spine x-ray 06/17/2014 TECHNIQUE: Axial T1, T2; sagittal T1, T2, | | | and STIR; coronal T2 MRI images of the lumbar spine were obtained | | | without IV contrast. FINDINGS: There is retrolisthesis of L1 on | | | L2. There is retrolisthesis of L2 on L3. There is very mild | | | levoconvex curvature of the lumbar spine centered at L2-3. There is | | | mild loss of vertebral body height anteriorly at L2. Discogenic bone | | | marrow signal change is seen at the level of L2-3. There is severe | | | loss of disc height at L2-3, with appearance of obliteration of the | | | disc space. Otherwise, decreased disc hydration signal is seen | | | throughout the remaining levels of the lumbar spine. There is | | | diffuse degenerative disc disease. The conus medullaris terminates | | | normally at the level of T12-L1. On sagittal images provided, the | | | discs, thecal sac, and neural foramina appear normal from the levels | | | of T11-12 through T12-L1. There is an eccentric posterior disc bulge | | | at L1, greater towards the region of the left lateral recess, with | | | some facet degenerative change on the left, with subsequent mild left | | | neuroforaminal narrowing at L1-2. On axial imaging: L2-3: | | | There is a large circumferential disc bulge with marginal osteophyte | | | complex that significantly contours the thecal sac, extending | | | approximately 5 mm into the spinal canal, with subsequent lifting of | | | the posterior longitudinal ligament. There is facet degenerative | | | hypertrophy and prominence of the dorsal epidural sinus fat with | | | ligamentum flavum thickening, with subsequent severe narrowing of the | | | thecal sac to 6 mm in AP diameter by 11 mm in maximal transverse | | | diameter, with compaction of the cauda equina fibers together and | | | complete obliteration of the CSF collar. There is an unusual | | | waviness to the cauda equina fibers posterior to the L3 vertebral | | | body, of uncertain etiology or clinical significance. There is | | | moderate left and severe right neural foraminal narrowing. L3-4: | | | Posterior disc bulge that contours the thecal sac. Facet | | | degenerative hypertrophy with ligamentum flavum thickening and | | | bilateral facet joint effusions. Thecal sac measures 12 mm in | | | midline AP diameter. Moderate right and moderate-severe left | | | neuroforaminal narrowing. L4-5: Posterior disc bulge that | | | contours the thecal sac. Facet degenerative hypertrophy and | | | ligamentum flavum thickening, with prominence of the dorsal epidural | | | sinus fat and bilateral facet joint effusions. Thecal sac narrowed | | | to 8mm in midline AP diameter. Moderate-severe left and moderate | | | right neural foraminal narrowing. L5-S1: Small posterior disc | | | bulge that contours the thecal sac. Facet degenerative hypertrophy | | | with mild left ligamentum flavum thickening and right-sided facet | | | joint effusion. Mild-moderate bilateral neural foraminal narrowing. | | | Exophytic cyst projects from the lateral inferior pole of the | | | right kidney measuring up to 4.8 cm in maximal diameter, without | | | suspicious features on the T2 sequence. Small exophytic cyst | | | projecting from the mid to upper pole of the left kidney measuring up | | | to 1.2 cm in maximal diameter also seen, without suspicious | | | features. The visualized intra-abdominal and paraspinal structures | | | are otherwise unremarkable. IMPRESSION - Severe narrowing of | | | the thecal sac at the level of L2-3 to 6 mm in AP diameter x 11 mm in | | | transverse diameter, with subsequent mass effect on the descending | | | cauda equina nerve root fibers and moderate left and severe right | | | neural foraminal narrowing. Narrowing of the thecal sac at L4-5 to 8 | | | mm in midline AP diameter with moderate-severe left and moderate | | | right neural foraminal narrowing. Degenerative disc disease, | | | spondylolisthesis, and spondylotic change with varying degrees of | | | neural foraminal narrowing at other spinal levels, as detailed above. | | | Dictated and Signed by: Alfred Rojas MD Electronically | | | signed: 06/26/2014 3:40 PM | | + + + + + | Procedure Note | + + | Alexis, Rad Results In - 06/26/2014 3:43 PM PDT MRI LUMBAR SPINE WO CONTRAST. | | 06/26/2014 2:35 PMHISTORY: Back pain with left leg weakness and numbness.COMPARISON: | | Lumbar spine x-ray 06/17/2014TECHNIQUE: Axial T1, T2; sagittal T1, T2, and STIR; coronal | | T2 MRI images of thelumbar spine were obtained without IV contrast.FINDINGS:There is | | retrolisthesis of L1 on L2.There is retrolisthesis of L2 on L3.There is very mild | | levoconvex curvature of the lumbar spine centered at L2-3.There is mild loss of | | vertebral body height anteriorly at L2.Discogenic bone marrow signal change is seen at | | the level of L2-3.There is severe loss of disc height at L2-3, with appearance of | | obliteration ofthe disc space. Otherwise, decreased disc hydration signal is seen | | throughoutthe remaining levels of the lumbar spine. There is diffuse degenerative | | discdisease.The conus medullaris terminates normally at the level of T12-L1.On sagittal | | images provided, the discs, thecal sac, and neural foramina appearnormal from the levels | | of T11-12 through T12-L1.There is an eccentric posterior disc bulge at L1, greater | | towards the region ofthe left lateral recess, with some facet degenerative change on the | | left, withsubsequent mild left neuroforaminal narrowing at L1-2.On axial imaging:L2-3: | | There is a large circumferential disc bulge with marginal osteophytecomplex that | | significantly contours the thecal sac, extending approximately 5 mminto the spinal | | canal, with subsequent lifting of the posterior longitudinalligament. There is facet | | degenerative hypertrophy and prominence of the dorsalepidural sinus fat with ligamentum | | flavum thickening, with subsequent severenarrowing of the thecal sac to 6 mm in AP | | diameter by 11 mm in maximaltransverse diameter, with compaction of the cauda equina | | fibers together andcomplete obliteration of the CSF collar. There is an unusual | | waviness to thecauda equina fibers posterior to the L3 vertebral body, of uncertain | | etiology orclinical significance. There is moderate left and severe right neural | | foraminalnarrowing.L3-4: Posterior disc bulge that contours the thecal sac. Facet | | degenerativehypertrophy with ligamentum flavum thickening and bilateral facet | | jointeffusions. Thecal sac measures 12 mm in midline AP diameter. Moderate rightand | | moderate-severe left neuroforaminal narrowing.L4-5: Posterior disc bulge that contours | | the thecal sac. Facet degenerativehypertrophy and ligamentum flavum thickening, with | | prominence of the dorsalepidural sinus fat and bilateral facet joint effusions. Thecal | | sac narrowed to8mm in midline AP diameter. Moderate-severe left and moderate right | | neuralforaminal narrowing.L5-S1: Small posterior disc bulge that contours the thecal | | sac. Facetdegenerative hypertrophy with mild left ligamentum flavum thickening | | andright-sided facet joint effusion. Mild-moderate bilateral neural | | foraminalnarrowing.Exophytic cyst projects from the lateral inferior pole of the right | | kidneymeasuring up to 4.8 cm in maximal diameter, without suspicious features on theT2 | | sequence. Small exophytic cyst projecting from the mid to upper pole of theleft kidney | | measuring up to 1.2 cm in maximal diameter also seen, withoutsuspicious features. The | | visualized intra-abdominal and paraspinal structuresare otherwise | | unremarkable.IMPRESSION -Severe narrowing of the thecal sac at the level of L2-3 to 6 mm | | in AP diameter x11 mm in transverse diameter, with subsequent mass effect on the | | descendingcauda equina nerve root fibers and moderate left and severe right | | neuralforaminal narrowing.Narrowing of the thecal sac at L4-5 to 8 mm in midline AP | | diameter withmoderate-severe left and moderate right neural foraminal | | narrowing.Degenerative disc disease, spondylolisthesis, and spondylotic change | | withvarying degrees of neural foraminal narrowing at other spinal levels, asdetailed | | above.Dictated and Signed by: Alfred Rojas MD Electronically signed: 06/26/2014 3:40 | | PM | |8mm in midline AP diameter. Moderate-severe left and moderate right neural | |foraminal narrowing. | | | |L5-S1: Small posterior disc bulge that contours the thecal sac. Facet | |degenerative hypertrophy with mild left ligamentum flavum thickening and | |right-sided facet joint effusion. Mild-moderate bilateral neural foraminal | |narrowing. | | | |Exophytic cyst projects from the lateral inferior pole of the right kidney | |measuring up to 4.8 cm in maximal diameter, without suspicious features on the | |T2 sequence. Small exophytic cyst projecting from the mid to upper pole of the | |left kidney measuring up to 1.2 cm in maximal diameter also seen, without | |suspicious features. The visualized intra-abdominal and paraspinal structures | |are otherwise unremarkable. | | | | | |IMPRESSION - | |Severe narrowing of the thecal sac at the level of L2-3 to 6 mm in AP diameter x | |11 mm in transverse diameter, with subsequent mass effect on the descending | |cauda equina nerve root fibers and moderate left and severe right neural | |foraminal narrowing. | |Narrowing of the thecal sac at L4-5 to 8 mm in midline AP diameter with | |moderate-severe left and moderate right neural foraminal narrowing. | |Degenerative disc disease, spondylolisthesis, and spondylotic change with | |varying degrees of neural foraminal narrowing at other spinal levels, as | |detailed above. | | | |Dictated and Signed by: Alfred Rojas MD | | Electronically signed: 06/26/2014 3:40 PM | + + + +---------+ + + | Performing | Address | City/State/Zipcode | Phone Number | | Organization | | | | + +---------+ + + | [facility] | | | [phone] | + +---------+ + + | [facility] | | | [phone] | + +---------+ + + documented in this encounter Visit Diagnoses + + | Diagnosis | + + | Lumbalgia Lumbago | + + | Lumbar radiculopathy Thoracic or lumbosacral neuritis or radiculitis, unspecified | + + | Lumbar spondylosis Lumbosacral spondylosis without myelopathy | + + | Left leg weakness Other musculoskeletal symptoms referable to limbs | + + | Lower extremity numbness Disturbance of skin sensation | + + documented in this encounter"
--- OUTSIDE RECORDS SUMMARY | ~2019-09-09 | XMS | Encounter Summary ---
Demographics + + + | Address | [address] | | | [place] [address] | + + + | Home Phone | | + + + | Preferred Language | Unknown | + + + | Marital Status | | + + + | Buddhism Affiliation | Unknown | + + + | Race | Unknown | + + + | Ethnic Group | Unknown | + + + Author + + + | Author | [facility] | | | and [place] | + + + | Organization | [facility] | | | and [place]ana [...] [place], [place] | | | | | [address] | | + + + + + | Mao Rea | ECON | Unknown | | + + + + + | Meredith Rea | ECON | Unknown | | + + + + + | Iqra Medina | ECON | [address] | | | | | [place], [place] | | | | | [address] | | + + + + + | Maldonado Rea | ECON | Unknown | | + + + + + Care Team Providers + +------+ + | Care Director Records Management Name | Role | Phone | + +------+ + | Brandon Juarez MD | PCP | | + +------+ + Encounter Details +--------+ + + + + | Date | Type | Department | Care Team | Description | +--------+ + + + + | 06/17/ | [facility] | [facility] | Logan Soto, | Lumbalgia; Lumbar | | 2013 | Encounter | MED CTR XRAY [address] | radiculopathy; | | | | [place] | [place] | Lumbar spondylosis; | | | | [place] [id number] | [address] | Left leg weakness; | | | | [phone] | | Lower extremity | | | [...] [place] | | | | | | [address] | | | | | | | | +--------+---------+ + + + documented as of this encounter Procedures + +--------+ + + + | Procedure Name | Priori | Date/Time | Associated Diagnosis | Comments | | | ty | | | | + +--------+ + + + | XR LUMBAR SPINE 4 + | Routin | 06/17/2014 | Lumbalgia Lumbar | Results for this | | VW | e | 2:29 PM | radiculopathy | procedure are in the | | | | PDT | Lumbar spondylosis | results section. | | | | | Left leg weakness | | | | | | Lower extremity | | | | | | numbness | | + +--------+ + + + documented in this encounter Results XR Lumbar Spine 4 + Vw (06/17/2014 2:29 PM PDT) + + | Specimen | + + | | + + + + + | Narrative | Performed At | + + + | XR LUMBAR SPINE 4 + VW. 06/17/2014 2:29 PM HISTORY: low back | MISCELANIOUS | | pain with left leg weakness . COMPARISON: None available. | LAB | | FINDINGS: Five lumbar type vertebral bodies. Mild levoconvex | | | curvature of the lumbar spine centered at L2-3. Retrolisthesis of | | | L1 on L2. Retrolisthesis of L2 on L3 . Diffuse degenerative disc | | | disease, with loss of disc height and sclerotic change at L2-3. | | | Vertebral body heights maintained. Facet degenerative hypertrophy, | | | greatest in the lower lumbar spine. Visualized portions of the | | | pelvis are unremarkable. IMPRESSION - Degenerative disc | | | disease and spondylotic change, with spondylolisthesis of L1 on L2 | | | and L2 on L3. Dictated and Signed by: Alfred Rojas MD | | | Electronically signed: 06/17/2014 5:05 PM | | + + + + + | Procedure Note | + + | Alexis, Rad Results In - 06/17/2014 5:08 PM PDT XR LUMBAR SPINE 4 + VW. 06/17/2014 2:29 | | PMHISTORY: low back pain with left leg weakness . COMPARISON: None | | available.FINDINGS:Five lumbar type vertebral bodies. Mild levoconvex curvature of the | | lumbar spine centered at L2-3. Retrolisthesis of L1 on L2. Retrolisthesis of L2 on L3 | | . Diffuse degenerative disc disease, with loss of disc height and sclerotic changeat | | L2-3. Vertebral body heights maintained.Facet degenerative hypertrophy, greatest in the | | lower lumbar spine. Visualizedportions of the pelvis are unremarkable.IMPRESSION | | -Degenerative disc disease and spondylotic change, with spondylolisthesis of L1on L2 and | | L2 on L3.Dictated and Signed by: Alfred Rojas MD Electronically signed: 06/17/2014 | | 5:05 PM | |Diffuse degenerative disc disease, with loss of disc height and sclerotic change | |at L2-3. Vertebral body heights maintained. | |Facet degenerative hypertrophy, greatest in the lower lumbar spine. Visualized | |portions of the pelvis are unremarkable. | | | | | |IMPRESSION - | |Degenerative disc disease and spondylotic change, with spondylolisthesis of L1 | |on L2 and L2 on L3. | | | |Dictated and Signed by: Alfred Rojas MD | | Electronically signed: 06/17/2014 5:05 PM | + + + +---------+ + + | Performing | Address | City/State/Zipcode | Phone Number | | Organization | | | | + +---------+ + + | [facility] | | | [phone] | + +---------+ + + | [facility] | | | [phone] | + +---------+ + + documented in [...]
--- OUTSIDE RECORDS SUMMARY | ~2019-09-09 | XMS | Encounter Summary ---
Demographics + + + | Address | [address] | | | [place] [address] | + + + | Home Phone | | + + + | Preferred Language | Unknown | + + + | Marital Status | | + + + | Uatsdin Affiliation | Unknown | + + + | Race | Unknown | + + + | Ethnic Group | Unknown | + + + Author + + + | Author | [facility] | | | and Carlosana | + + + | Organization | [facility] | | | and [place]ana [...] [place], [place] | | | | | [address] | | + + + + + | Mao Rea | ECON | Unknown | | + + + + + | Meredith Rea | ECON | Unknown | | + + + + + | Iqra Medina | ECON | [address] | | | | | [place], [place] | | | | | [address] | | + + + + + | Maldonado Rea | ECON | Unknown | | + + + + + Care Team Providers + +------+ + | Care Machine Shop Specialist Name | Role | Phone | + +------+ + | Brandon Juarez MD | PCP | | + +------+ + Encounter Details +--------+ + + + + | Date | Type | Department | Care Team | Description | +--------+ + + + + | 02/18/ | Preadmit | [facility] | Koby George MD | Pre-operative | | 2017 | Visit | [facility] | [address] | clearance (Primary | | | | CLINIC [address] | [place] [address] | Dx); Lumbar | | | | [place] | [phone] | radiculopathy; | | | | [phone] | | Pseudoarthrosis of | | | | | | lumbar spine; | | | | | | Synovial cyst of | | | | | | lumbar facet joint; | | | | | | S/P lumbar fusion; | | | | | | Flat back syndrome; | | | | | | 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, lumbar; | | | | | | Lumbar [...] arthropathy, | | | | | | lumbar; Arthritis; | | | | | | Cancer (HCC); | | | | | | Anxiety; Rheumatoid | | | | | | arthritis, involving | | | | | | unspecified site, | | | | | | unspecified | | | | | | rheumatoid factor | | | | | | presence (HCC); | | | | | | Sleep apnea, | | | | | | obstructive; | | | | | | Depression, | | | | | | unspecified | | | | | | depression type; | | | | | | Essential | | | | | | hypertension, | | | | | | benign; Fatigue, | | | | | | unspecified type; | | | | | | Former Tobacco | | | | | | Smoker - quit 1980; | | | | | | H/O colon cancer - | | | | | | 2003 | +--------+ + + + + Social [...] [place] | | | | | | [address] | | | | | | | | +--------+---------+ + + + documented as of this encounter Procedures + +--------+ + + + | Procedure Name | Priori | Date/Time | Associated Diagnosis | Comments | | | ty | | | | + +--------+ + + + | CULTURE, MRSA | Routin | 02/18/2017 | Pre-operative | Results for this | | | e | 9:42 AM | clearance | procedure are in the | | | | PDT | | results section. | + +--------+ + + + | CBC WITH | Routin | 02/18/2017 | Lumbar | Results for this | | DIFFERENTIAL | e | 9:42 AM | radiculopathy | procedure are in the | | | | PDT | Pseudoarthrosis of | results section. | | | | | lumbar spine | | | | | | Synovial cyst of | | | | | | lumbar facet joint | | | | | | S/P lumbar fusion | | | | | | Flat back syndrome | | | | | | 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, lumbar | | | | | | Lumbar stenosis with | | | | | | neurogenic | | | | | | claudication | | | | | | Foraminal stenosis | | | | | | of lumbar region | | | | | | 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 | | | | | | Facet arthropathy, | | | | | | lumbar Arthritis | | | | | | Cancer (HCC) | | | | | | Anxiety Rheumatoid | | | | | | arthritis, involving | | | | | | unspecified site, | | | | | | unspecified | | | | | | rheumatoid factor | | | | | | presence (HCC) | | | | | | Sleep apnea, | | | | | | obstructive | | | | | | Depression, | | | | | | unspecified | | | | | | depression type | | | | | | Essential | | | | | | hypertension, benign | | | | | | Fatigue, | | | | | | unspecified type | | | | | | Former Tobacco | | | | | | Smoker - quit 1980 | | | | | | H/O colon cancer - | | | | | | 2003 | | + +--------+ + + + | BASIC METABOLIC | Routin | 02/18/2017 | Lumbar | Results for this | | PANEL | e | 9:42 AM | radiculopathy | procedure are in the | | | | PDT | Pseudoarthrosis of | results section. | | | | | lumbar spine | | | | | | Synovial cyst of | | | | | | lumbar facet joint | | | | | | S/P lumbar fusion | | | | | | Flat back syndrome | | | | | | 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, lumbar | | | | | | Lumbar stenosis with | | | | | | neurogenic | | | | | | claudication | | | | | | Foraminal stenosis | | | | | | of lumbar region | | | | | | 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 | | | | | | Facet arthropathy, | | | | | | lumbar Arthritis | | | | | | Cancer (HCC) | | | | | | Anxiety Rheumatoid | | | | | | arthritis, involving | | | | | | unspecified site, | | | | | | unspecified | | | | | | rheumatoid factor | | | | | | presence (HCC) | | | | | | Sleep apnea, | | | | | | obstructive | | | | | | Depression, | | | | | | unspecified | | | | | | depression type | | | | | | Essential | | | | | | hypertension, benign | | | | | | Fatigue, | | | | | | unspecified type | | | | | | Former Tobacco | | | | | | Smoker - quit 1980 | | | | | | H/O colon cancer - | | | | | | 2003 | | + +--------+ + + + | ECG 12 LEAD | Routin | 02/18/2017 | Lumbar | Results for this | | | e | 9:36 AM | radiculopathy | procedure are in the | | | | PDT | Pseudoarthrosis of | results section. | | | | | lumbar spine | | | | | | Synovial cyst of | | | | | | lumbar facet joint | | | | | | S/P lumbar fusion | | | | | | Flat back syndrome | | | | | | 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, lumbar | | | | | | Lumbar stenosis with | | | | | | neurogenic | | | | | | claudication | | | | | | Foraminal stenosis | | | | | | of lumbar region | | | | | | 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 | | | | | | Facet arthropathy, | | | | | | lumbar Arthritis | | | | | | Cancer (HCC) | | | | | | Anxiety Rheumatoid | | | | | | arthritis, involving | | | | | | unspecified site, | | | | | | unspecified | | | | | | rheumatoid factor | | | | | | presence (HCC) | | | | | | Sleep apnea, | | | | | | obstructive | | | | | | Depression, | | | | | | unspecified | | | | | | depression type | | | | | | Essential | | | | | | hypertension, benign | | | | | | Fatigue, | | | | | | unspecified type | | | | | | Former Tobacco | | | | | | Smoker - quit 1980 | | | | | | H/O colon cancer - | | | | | | 2003 | | + +--------+ + + + documented in this encounter Results CBC with Differential (02/18/2017 9:42 AM PDT) + + + + + + | Component | Value | Ref Range | Performed | Pathologist | | | | | At | Signature | + + + + + + | WBC | 8.0 | 4.0 - 11.0 K/uL | [facility] | | | | | | [facility] | | [facility] | | [facility] | | [facility] - | | | | | | LABORATORY | | + + + + + + | RBC | 4.36 | 4.30 - 5.70 | [facility] | | | | | M/uL | [facility] | | | | | | [facility] | | | | | | [facility] - | | | | | | LABORATORY | | + + + + + + | Hemoglobin | 13.9 | 13.5 - 18.0 | [facility] | | | | | g/dL | [facility] | | | | | | [facility] | | | | | | [facility] - | | | | | | LABORATORY | | + + + + + + | Hematocrit | 42.1 | 40.0 - 51.0 % | [facility] | | | | | | [facility] | | | [facility] | | [facility] | | | | | [facility] - | | | | | | LABORATORY | | + + + + + + | MCV | 96.5 | 83.0 - 101.0 fL | [facility] | | | | | | [facility] | | | | | | [facility] | | | | [facility] - | | | | | | LABORATORY | | + + + + + + | MCH | 31.8 | 28.0 - 35.0 pg | [facility] | | | | | | [facility] | | | | | | [facility] | | | | | | [facility] - | | | | | | LABORATORY | | + + + + + + | MCHC | 33.0 | 32.0 - 36.0 | [facility] | | | | | g/dL | [facility] | | | | | | [facility] | | | | | | [facility] - | | | | | | LABORATORY | | + + + + + + | RDW-CV | 15.2 (H) | <15.0 % | [facility] | | | | | | [facility] | | | | | | [facility] | | | | | | [facility] - | | | | | | LABORATORY | | + + + + + + | Platelet | 336 | 140 - 440 K/uL | [facility] | | | Count | | | [facility] | | | | | | [facility] | | | | | | [facility] - | | | | | | LABORATORY | | + + + + + + | MPV | 7.8 | fL | [facility] | | | | | | [facility] | | [facility] | | | [facility] | | | | | | [facility] - | | | | | | LABORATORY | | + + + + + + | % | 65.0 | 45.0 - 82.0 % | [facility] | | | Neutrophils | | | [facility] | | | | | | [facility]ICAL | | | | | | C[facility] - | | | | | | LABORATORY | | + + + + + + | % | 17.2 (L) | 20.0 - 45.0 % | [facility] | | | Lymphocytes | | | [facility] | | | | | | [facility] | | | | | | [facility] - | | | | | | LABORATORY | | + + + + + + | % Monocytes | 14.7 (H) | 4.0 - 12.0 % | [facility] | | | | | | [facility] | | | | | | [facility] | | | | | | [facility] - | | | | | | LABORATORY | | + + + + + + | % | 2.6 | 0.0 - 5.0 % | [facility] | | | Eosinophils | | | [facility] | | | | | | [facility] | | | | | | C[facility] - | | | | | | LABORATORY | | + + + + + + | % Basophils | 0.5 | 0.0 - 1.0 % | [facility] | | | | | | [facility] | | | | | | [facility] | | | | | | [facility] - | | | | | | LABORATORY | | + + + + + + | Absolute | 5.20 | 1.80 - 8.50 | [facility] | | | Neutrophils | | K/uL | [facility] | | | | | | [facility] | | | | | | [facility] - | | | | | | LABORATORY | | + + + + + + | Absolute | 1.40 | 0.60 - 3.20 | [facility] | | | Lymphocytes | | K/uL | [facility] | | | | | | [facility] | | | | | | [facility] - | | | | | | LABORATORY | | + + + + + + | Absolute | 1.20 (H) | 0.00 - 1.00 | [facility] | | | Monocytes | | K/uL | [facility] | | | | | | [facility] | | | | | | [facility] - | | | | | | LABORATORY | | + + + + + + | Absolute | 0.20 | 0.00 - 0.40 | [facility] | | | Eosinophils | | K/uL | [facility] | | | | | | [facility] - | | | | | | LABORATORY | | + + + + + + | Absolute | 0.00 | 0.00 - 0.10 | [facility] | | | Basophils | | K/uL | [facility] | | | | [...] + + | [facility] | [address] | [place] | [phone] | | [facility] | | [address] | | | - LABORATORY | | | | + + + + + Basic Metabolic Panel (02/18/2017 9:42 AM PDT) + + + + + + | Component | Value | Ref Range | Performed | Pathologist | | | | | At | Signature | + + + + + + | Na | 141 | 136 - 149 | [facility] | | | | | mmol/L | [facility] | | | | | | MEDICAL | | | | | | CENTER - | | | | | | LABORATORY | | + + + + + + | K | 4.0 | 3.5 - 5.1 | [facility] | | | | | mmol/L | [facility] | | | | | | MEDICAL | | | | | | CENTER - | | | | | | LABORATORY | | + + + + + + | Cl | 108 | 98 - 109 mmol/L | [facility] | | | | | | [facility] | | | | | | MEDICAL | | | | | | CENTER - | | | | | | LABORATORY | | + + + + + + | CO2 | 26 | 24 - 31 mmol/L | [facility] | | | | | | [facility] | | | [facility] | | MEDICAL | | | | | | CENTER - | | | | | | LABORATORY | | + + + + + + | Anion Gap | 7 | 3 - 16 mmol/L | [facility] | | | | | | [facility] | | | | | | MEDICAL | | | | | | CENTER - | | | | | | LABORATORY | | + + + + + + | Glucose | 107 | 70 - 109 mg/dL | [facility] | | | | | | [facility] | | | | | | [facility] | | | | | | CENTER - | | | | | | LABORATORY | | + + + + + + | BUN | 10 | 7 - 18 mg/dL | [facility] | | | | | | [facility] | | | | | | [facility]ICAL | | | | | | CENTER - | | | | | | LABORATORY | | + + + + + + | Creatinine | 0.75 | 0.60 - 1.30 | [facility] | | | | | mg/dL | [facility] | | | | | | MEDICAL | | | | | | CENTER - | | | | | | LABORATORY | | + + + + + + | eGFR if not | >60Comment: GLOMERULAR | >=60 | [facility] | | | | FILTRATION | mL/min/1.73m2 | [facility] | | | SAO TOMEAN | RATE,ESTIMATED | | MEDICAL | | | | mL/min/1.83w7Zezi than | | CENTER - | | | | 60 Chronic kidney | | LABORATORY | | | | disease,if found over a | | | | | | 3-month period.Less than | | | | | | 15 Kidney failureFor | | | | | | | | | | | | Americans,multiply the | | | | | | calculated GFR by 1.21. | | | | | | | | | | + + + + + + | Calcium | 9.9 | 8.3 - 10.5 | [facility] | | | | | mg/dL | [facility] | | | | | | MEDICAL | | | | | | CENTER - | | | | | | LABORATORY | | + + + + + + | BUN/Creatin | 13.3 | | [facility] | | | ine Ratio | | | [facility] | | | | | | MED[facility] [...] [facility] | [address] | [place] | [phone] | | [facility] | | [address] | | | - LABORATORY | | | | + + + + + Culture, MRSA (02/18/2017 9:42 AM PDT) + + + + + + | Component | Value | Ref Range | Performed | Pathologist | | | | | At | Signature | + + + + + + | Culture | Negative for MRSA by | | [facility] | | | | chromogenic agar method | | [facility] | | | | | | MEDICAL | | | | | | CENTER - | | | | | | LABORATORY | | + + + + + + | Culture | 2+ Coagulase positive | | [facility] | | | | Staphylococcus | | [facility] | | | | | | MEDICAL | | | | | | CENTER - | | | | | | LABORATORY | | + + + + + + + + | Specimen | + + | Respiratory - Both | | anterior nares (body | | structure) | + + + + + + + | Performing | Address | City/State/Zipcode | Phone Number | | Organization | | | | + + + + + | [facility] | [address] | [place] | [phone] | | [facility] | | [address] | | | - LABORATORY | | | | + + + + + ECG 12 lead (02/18/2017 9:36 AM PDT) + + + + + + | Component | Value | Ref Range | Performed | Pathologist | | | | | At | Signature | + + + + + + | VENTRICULAR | 53 | BPM | [facility] | | | RATE EKG | | | | | + + + + + + | ATRIAL RATE | 53 | BPM | [facility] | | + + + + + + | P-R | 196 | ms | [facility] | | | INTERVAL | | | | | + + + + + + | QRS | 96 | ms | [facility] | | | DURATION | | | | | + + + + + + | Q-T | 438 | ms | [facility] | | | INTERVAL | | | | | + + + + + + | Q-T | 410 | ms | [facility] | | | INTERVAL | | | | | | (CORRECTED) | | | | | + + + + + + | P WAVE AXIS | 9 | degrees | [facility] | | + + + + + + | QRS AXIS | -20 | degrees | [facility] | | + + + + + + | T AXIS | 2 | degrees | [facility] | | + + + + + + | INTERPRETAT | Sinus bradycardiaMinimal | | [facility] | | | ION TEXT | voltage criteria for | | | | | | LVH, may be normal | | | | | | variantnonspecific | | | | | | inferior T-wave | | | | | | flatteningBorderline | | | | | | ECGNo previous ECGs | | | | | | availableConfirmed by | | | | | | JUAN SALDIVAR MD ([id number]) | | | | | | on 02/19/2017 7:40:07 AM | | | | + + + + + + + + | Specimen | + + | | + + + + + | Narrative | Performed At | + + + | | | + + + + +---------+ + + | Performing | Address | City/State/Zipcode | Phone Number | | Organization | | | | + +---------+ + + | [facility] | | | | + +---------+ + + documented in this encounter Visit Diagnoses + + | Diagnosis | + + | Pre-operative clearance - Primary Preoperative examination, unspecified | + + | Lumbar radiculopathy Thoracic or lumbosacral neuritis or radiculitis, unspecified | + + | Pseudoarthrosis of lumbar spine Nonunion of fracture | + + | Synovial cyst of lumbar facet joint Cyst of bone (localized), unspecified | + + | S/P lumbar fusion Arthrodesis status | + + | Flat back syndrome Other lordosis (acquired) | + + | [...] spondylosis without myelopathy | + + | Arthritis Arthropathy, unspecified, site unspecified | + + | Cancer (HCC) Other malignant neoplasm without specification of site | + + | Anxiety Anxiety state, unspecified | + + | Rheumatoid arthritis, involving unspecified site, unspecified rheumatoid factor | | presence (HCC) | + + | Sleep apnea, obstructive Obstructive sleep apnea (adult) (pediatric) | + + | Depression, unspecified depression type | + + | Essential hypertension, benign | + + | Fatigue, unspecified type | + + | Former Tobacco Smoker - quit 1981 Personal history of tobacco use, presenting hazards | | to health | + + | H/O colon cancer - 2003 Personal history of malignant neoplasm of large intestine | + + documented in this encounter"
--- OUTSIDE RECORDS SUMMARY | ~2019-09-09 | XMS | Encounter Summary ---
Demographics + + + | Address | [address] | | | [place] [address] | + + + | Home Phone | | + + + | Preferred Language | Unknown | + + + | Marital Status | | + + + | Evangelical Affiliation | Unknown | + + + | Race | Unknown | + + + | Ethnic Group | Unknown | + + + Author + + + | Author | [facility] | | | and [place] | + + + | Organization | [facility] | | | and [...] [place], [place] | | | | | [address] | | + + + + + | Mao Rea | ECON | Unknown | | + + + + + | Meredith Rea | ECON | Unknown | | + + + + + | Iqra Medina | ECON | [address] | | | | | [place], [place] | | | | | [address] | | + + + + + | Maldonado Rea | ECON | Unknown | | + + + + + Care Team Providers + +------+ + | Care Ground Crew Lines Person Name | Role | Phone | + +------+ + | Brandon Juarez MD | PCP | | + +------+ + Reason for Visit + + + | Reason | Comments | + + + | Follow-up | 9 month po | + + + Encounter Details +--------+---------+ + + + | Date | Type | Department | Care Team | Description | +--------+---------+ + + + | 12/22/ | Office | [facility] | Ender Mora | S/P lumbar fusion | | 2015 | Visit | NEUROSURGERY [address] | [address] | (Primary Dx); | | | | [address] | [address] | Spondylolisthesis of | | | | [place] | [place] | lumbar region; | | | | [address] | [address] | Lumbar | | | | [phone] | | radiculopathy; | | | | | | Lumbar stenosis with | | | | | | neurogenic | | | | | | claudication; Hip | | | | | | pain, chronic, left | +--------+---------+ + + + Social History [...] + + + | Blood Pressure | 150/88 | 10/21/2015 10:15 AM | | | | | PST | | + + + + + | Pulse | 60 | 10/21/2015 10:15 AM | | | | | PST | | + + + + + | Temperature | - | - | | + + + + + | Respiratory Rate | 18 | 10/21/2015 10:15 AM | | | | | PST | | + + + + + | Oxygen Saturation | - | - | | + + + + + | Inhaled Oxygen | - | - | | | Concentration | | | | + + + + + | Weight | 89.8 kg (198 lb) | 10/21/2015 10:15 AM | | | | | PST | | + + + + + | Height | 175.3 cm (5' 9") | 10/21/2015 10:15 AM | | | | | PST | | + + + + + | Body Mass Index | 29.24 | 10/21/2015 10:15 AM | | | | | PST [...] encounter Patient Instructions Patient Instructions Ender Mora PA - 10/21/2015 10:45 AM PSTContinue to progress your activities as we discussed. I have ordered an x-ray of your left hip. Please follow up with your primary care provider regarding her hip pain for further evaluation and treatme nt. We will see you in our office on an as-needed basis documented in this encounter Progress Notes Ender Mora PA - 10/21/2015 10:46 AM PSTFormatting of this note might be differen t from the original. DOM Sampson [address] [place] [address], [address] [place], [place] [address] FAX: NEUROSURGERY FOLLOW-UP CHIEF COMPLAINT: Chief Complaint Patient presents with Follow-up 9 month po HISTORY OF PRESENT ILLNESS: The patient is a 70 y.o. male that had a lumbar fusion around 9 months ago. He returns and overall is doing fairly well. The patient complains of increa sing problems with left hip pain. It started about 3-4 months ago. He had been walking johnnie roximately 2 miles a day. Has a history rheumatoid arthritis. He is not having any radiati ng pain in his legs. His back otherwise feels good. PAST MEDICAL HISTORY: Past Medical History Diagnosis [...] aterality: N/A; Surgeon: Koby George MD; Location: [facility] CURRENT MEDICATIONS: Current Outpatient [...] per tablet Take 1 tablet by mouth Daily . DULOXETINE HCL PO Take 30 mg by mouth 2 times daily. gabapentin (NEURONTIN) 400 mg capsule Take 800 mg by mouth 3 times daily. Golimumab (SIMPONI ARIA IV) Inject into the vein. Currently once every 4 weeks leflunomide (ARAVA) 10 mg tablet Take 10 mg by mouth. 10mg weekdays, and then weekends is 5 mg. levothyroxine (SYNTHROID, LEVOTHROID) 75 MCG tablet Take 75 mcg by mouth every morning (before breakfast). medical marijuana (CANNABIS) inhalation Inhale 1-5 puffs into the lungs Twice daily as needed. METHOTREXATE SODIUM IJ SOLN: As directed Multiple Vitamins-Minerals (A THRU Z ADVANCED) TABS Omeprazole Magnesium ([employer] OMEPRAZOLE) 20.6 (20 BASE) MG CPDR Daily simvastatin (ZOCOR) 40 mg tablet Take 40 mg by mouth Daily. sulfaSALAzine (AZULFIDINE) 500 mg tablet Take 1,500 mg by mouth Daily. No current facility-administered medications for this visit. [...] attack Father INTERIM PHYSICAL EXAMINATION: Blood pressure 150/88, pulse 60, resp. rate 18, height 1.753 m (5' 9"), weight 89.812 kg (1 98 lb). Body mass index is 29.23 kg/(m^2). GENERAL: Uziel Rea is in no acute distress with unlabored respirations. HEENT: HEAD/FACE: Normocephalic and atraumatic. There are no areas of recent trauma. CHEST: Clear to ausculation without crackles or wheeze. HEART: Regular rate and rhythm without murmurs. SPINE: The patient s incisions are healed well. EXTREMITIES: No lower extremity edema. NEUROLOGICAL EXAMINATION: MENTAL STATUS: The patient is awake, alert, and oriented. He follows simple and complex commands MOTOR EXAM: Motor strength is 5/5 in his lower extremities. SENSORY EXAM: The sensory examination is unremarkable REFLEXES: Reflexes are unchanged from his preoperative history and physical. RADIOGRAPHIC REVIEW: The patient s postoperative x-rays show stable instrumentation and alignment and were rev iewed with the patient today during the visit. There has been increased arthrodesis since t he patient s last x-ray which was also reviewed for comparison. His subsidence is stable and without changes ASSESSMENT: Encounter Diagnoses Name Primary? S/P lumbar fusion Yes Spondylolisthesis of lumbar region Lumbar radiculopathy Lumbar stenosis with neurogenic claudication Hip pain, chronic, left Past Medical History Diagnosis Date Depression Arthritis rheumatoid Cancer (HCC) 2003 colon cancer Anxiety Hypothyroid Hard of hearing bilateral hearing aids PLAN: Overall, the patient is doing well. He is having increasing left hip problems and pain and I've agreed to order an x-ray but he will follow-up with his primary care provider to revie w the x-ray and make further recommendations I have increased the patient s activities further, and I would like the patient to contin ue to advance with activities as tolerated. I have a permanent restriction of 75 lbs but no other major restrictions at this time. It has been a pleasure caring for this patient to date and hope to see that the patient con tinues to improve over time and can take care of his back long-term. I greatly appreciate t his referral. The patient will follow-up with my clinic on an as-needed basis ELECTRONICALLY SIGNED BY: DOM Sampson, 10/21/2015 10:46 documented in this encounter Plan of Treatment +--------+---------+ + + + | Date | Type | Specialty | Care Team | Description | +--------+---------+ + + + | 12/07/ | Office | Neurology | Abundio Khanna MD | | | 2019 | Visit | | [address] | | | | | | [place] | | | | | | [address] | | | | | | | | +--------+---------+ + + + documented as of this encounter Results XR Hip Left 2 + Vw (10/21/2015 11:08 AM PST) + + | Specimen | + + | | + + + + + | Narrative | Performed At | + + + | XR HIP LEFT 2 + VW. 10/21/2015 11:08 AM HISTORY: hip pain . | [facility] | | COMPARISON: None available. FINDINGS: Proximal left femur | . [facility] | | appears intact, without evidence of [...] | + + + + + | [facility] | [address] | [place], [place] | [phone] | | [facility] | | [address] | | | - IMAGING | | | | + + + + + documented in this encounter Visit Diagnoses + + | Diagnosis | + + | S/P lumbar fusion - Primary Arthrodesis status | + + | Spondylolisthesis of lumbar region Acquired spondylolisthesis | + + | Lumbar radiculopathy Thoracic or lumbosacral neuritis or radiculitis, unspecified | + + | Lumbar stenosis with neurogenic claudication Spinal stenosis, lumbar region, with | | neurogenic claudication | + + | Hip pain, chronic, left | + + documented in this encounter
--- OUTSIDE RECORDS SUMMARY | ~2019-09-09 | XMS | Encounter Summary ---
Demographics + + + | Address | [address] | | | [place] [address] | + + + | Home Phone | | + + + | Preferred Language | Unknown | + + + | Marital Status | | + + + | Oriental Orthodox Affiliation | Unknown | + + + | Race | Unknown | + + + | Ethnic Group | Unknown | + + + Author + + + | Author | [facility] | | | and [place]ana | + + + | Organization | [facility] | | | and [...] [place], [place] | | | | | [address] | | + + + + + | Mao Rea | ECON | Unknown | | + + + + + | Meredith Rea | ECON | Unknown | | + + + + + | Iqra Medina | ECON | [address] | | | | | [place], [place] | | | | | [address] | | + + + + + | Maldonado Rea | ECON | Unknown | | + + + + + Care Team Providers + +------+ + | Care Beadworker Name | Role | Phone | + +------+ + | Sherie Vela PA-C | PCP | | + +------+ + Encounter Details +--------+ + + + + | Date | Type | Department | Care Team | Description | +--------+ + + + + | 03/08/ | Imaging | [facility] | Provider, | | | 2018 | Exam | MED CTR EXTERNAL | MD [address]in[address] | | | | | IMAGING | [place] | | | | | [phone] | [place] [address] | | +--------+ + + + + [...] [place] | | | | | | [address] | | | | | | | | +--------+---------+ + + + documented as of this encounter Procedures + +--------+ + + + | Procedure Name | Priori | Date/Time | Associated Diagnosis | Comments | | | ty | | | | + +--------+ + + + | CT LUMBAR SPINE WO | Routin | 02/23/2018 | | Results for this | | CONTRAST | e | 1:05 PM | | procedure are in the | | | | PDT | | results section. | + +--------+ + + + documented in this encounter Results CT Lumbar Spine wo Contrast (02/23/2018 1:05 PM PDT) + + | Specimen | + + | | + + + + + | Narrative | Performed At | + + + | External films for comparison only | [facility] | | | | | No results will be in the chart. | | + + + + +---------+ + + | Performing | Address | City/State/Zipcode | Phone Number | | Organization | | | | + +---------+ + + | [facility] | | | | + +---------+ + + documented in this encounter Visit Diagnoses Not on filedocumented in this encounter"
--- OUTSIDE RECORDS SUMMARY | ~2019-09-09 | XMS | Encounter Summary ---
Demographics + + + | Address | [address] | | | [place] [address] | + + + | Home Phone | | + + + | Preferred Language | Unknown | + + + | Marital Status | | + + + | Restorationist Affiliation | Unknown | + + + | Race | Unknown | + + + | Ethnic Group | Unknown | + + + Author + + + | Author | [facility] | | | and Carlosana | + + + | Organization | [facility] | | | and Carlosana [...] [place], [place] | | | | | [address] | | + + + + + | Mao Rea | ECON | Unknown | | + + + + + | Meredith Rea | ECON | Unknown | | + + + + + | Iqra Medina | ECON | [address] | | | | | [place], [place] | | | | | [address] | | + + + + + | Maldonado Rea | ECON | Unknown | | + + + + + Care Team Providers + +------+ + | Care Building Illuminating Engineer Name | Role | Phone | + +------+ + | Brandon Juarez MD | PCP | | + +------+ + Reason for Visit +---------+ + | Reason | Comments | +---------+ + | Results | Confirm he completed X-rays | +---------+ + Encounter Details +--------+ + + + + | Date | Type | Department | Care Team | Description | +--------+ + + + + | 11/03/ | Telephone | [facility] [place] | Ender Mora | Results (Confirm he | | 2017 | | NEUROSURGERY [address] | [address] | completed X-rays) | | | | [address] | [address] | | | | | [place], [place] | [place], [place] | | | | | [address] | [address] | | | | | [phone] | | | +--------+ + + + [...] [place] | | | | | | [address] | | | | | | | | +--------+---------+ + + + documented as of this encounter Visit Diagnoses Not on filedocumented in this encounter"
--- OUTSIDE RECORDS SUMMARY | ~2019-09-09 | XMS | Encounter Summary ---
Demographics + + + | Address | [address] | | | [place] [address] | + + + | Home Phone | | + + + | Preferred Language | Unknown | + + + | Marital Status | | + + + | Caodaism Affiliation | Unknown | + + + | Race | Unknown | + + + | Ethnic Group | Unknown | + + + Author + + + | Author | [facility] | | | and [place]ana | + + + | Organization | [facility] | | | and Carlosana [...] [place], [place] | | | | | [address] | | + + + + + | Mao Rea | ECON | Unknown | | + + + + + | Meredith Rea | ECON | Unknown | | + + + + + | Iqra Medina | ECON | [address] | | | | | [place], [place] | | | | | [address] | | + + + + + | Maldonado Rea | ECON | Unknown | | + + + + + Care Team Providers + +------+ + | Care Mortician Helper Name | Role | Phone | [...] | Lumbar | Tino, | [address] | | | | | radiculopath | Luis Carlos Lerner MD | [place], | | | | | y | [address] | [place] | | | | | Procedures | [address] | [address] | | | | | IN INJECT | [place] | Phone: | | | | | ANES/STEROID | [address] | [phone] | | | | | FORAMEN | Phone: | Fax: | | | | | LUMBAR/SACRA | [phone] | [phone] | | | | | L W IMG | Fax: | | | | | | GUIDE ,1 | [phone] | | | | | | LEVEL IN | | | | | | | TRIAMCINOLON | | | | | | | E ACET INJ | | | | | | | NOS, 10 MG | | | | | | | Appt 12/06 | | | | | | | Left L2-L3 | | | | | | | TFESI | | | +--------+--------+ + + + + Encounter Details +--------+ + + + + | Date | Type | Department | Care Team | Description | +--------+ + + + + | 12/06/ | Hospital | [facility] | Wilfredo Hackett, | Lumbar radiculopathy | | 2019 | Encounter | MED CTR XRAY [address] | PA-C [address] | | | | | [place] | [address] [place] | | | | | [place] [address] | [place] [address] | | | | | [phone] | [phone] | | | | | | | | | | | | Chilo Beltrán | | +--------+ + + + + [...] | 11 | | | THRU Z MARIO) | | | | | | | TABS | | | | | | + + + +---------+ + + | simvastatin | Take 40 mg by mouth | | 0 | 02/18/20 | | | (ZOCOR) 40 mg tablet | Daily. | | | 17 | | + + + +---------+ + + | VRAYLAR 4.5 MG | | | 0 | 10/06/20 | | | capsule | | | | 18 | | + [...] + + + +---------+ + + | Moira-3 Fatty | Take 2 capsules by | [...] [place] | | | | | | [id number] | | | | | | | [...] | | | | | INTRATHECAL, ONCE, 12/06/18 at | | PM PST [...]
--- OUTSIDE RECORDS SUMMARY | ~2019-09-09 | XMS | Encounter Summary ---
Demographics + + + | Address | [address] | | | [place] [address] | + + + | Home Phone | | + + + | Preferred Language | Unknown | + + + | Marital Status | | + + + | Alevism Affiliation | Unknown | + + + | Race | Unknown | + + + | Ethnic Group | Unknown | + + + Author + + + | Author | [facility] | | | and Carlosana | + + + | Organization | [facility] | | [...] [place], [place] | | | | | [address] | | + + + + + | Mao Rea | ECON | Unknown | | + + + + + | Meredith Rea | ECON | Unknown | | + + + + + | Iqra Medina | ECON | [address] | | | | | [place], [place] | | | | | [address] | | + + + + + | Maldonado Rea | ECON | Unknown | | + + + + + Care Team Providers + +------+ + | Care Field Cashier Name | Role | Phone | + +------+ + PCP | Unavailable | + +------+ + Encounter Details +--------+ + + + + | Date | Type | Department | Care Team | Description | +--------+ + + + + | 06/15/ | Hospital | [facility] | Hadley Weiss | | | 2010 | Encounter | MED CTR GENERIC OP | MD Eliceo [address] | | | | | CONV DEPT [address] | [address] [place] | | | | | [place], | [place], [place] [address] | | | | | [place] [address] | [phone] | | | | | [phone] | | | +--------+ + + + [...] | Multiple | | | 0 | 0816 | | | Vitamins-Minerals (A | | [...] [place] | | | | | | [address] | | | | | | | | +--------+---------+ + + + documented as of this encounter Visit Diagnoses Not on filedocumented in this encounter"
--- OUTSIDE RECORDS SUMMARY | ~2019-09-09 | XMS | Encounter Summary ---
Demographics + + + | Address | [address] | | | [place] [address] | + + + | Home Phone | | + + + | Preferred Language | Unknown | + + + | Marital Status | | + + + | Mandaen Affiliation | Unknown | + + + | Race | Unknown | + + + | Ethnic Group | Unknown | + + + Author + + + | Author | [facility] | | | and [place]ana | + + + | Organization | [facility] | | | and Carlosana [...] [place], [place] | | | | | [address] | | + + + + + | Mao Rea | ECON | Unknown | | + + + + + | Meredith Rea | ECON | Unknown | | + + + + + | Iqra Medina | ECON | [address] | | | | | [place], [place] | | | | | [address] | | + + + + + | Maldonado Rea | ECON | Unknown | | + + + + + Care Team Providers + +------+ + | Care Sharepoint Trainer Name | Role | Phone | [...] 2013 | | PHYSIATRY [address] | [address] | | | | | [place], | [place] | | | | | [place] [address] | [id number] | | | | | [phone] | | | +--------+ + + + [...] 2020 | Visit | | [address] | | | | | | [place] | | | | | | [address] | | | | | | | | +--------+---------+ + + + documented as of this encounter Visit Diagnoses Not on filedocumented in this encounter"
--- OUTSIDE RECORDS SUMMARY | ~2019-09-09 | XMS | Encounter Summary ---
Demographics + + + | Address | [address] | | | [place] [address] | + + + | Home Phone [...] + + + | Organization | [facility] | | | and Carlosana | [...] [place], [place] | | | | | [address] | | + + + + + | Mao Rea | ECON | Unknown | | + + + + + | Meredith Rea | ECON | Unknown | | + + + + + | Iqra Medina | ECON | [address] | | | | | [place], [place] | | | | | [address] | | + + + + + | Maldonado Rea | ECON | Unknown | | + + + + + Care Team Providers + +------+ + | Care Saxophone Assembler Name | Role | Phone | + [...] | Lumbar | Tino, | [address] | | | | | radiculopath | Luis Carlos Lerner MD | [place], | | | | | y | [address] | [place] | | | | | Procedures | [address] | [address] | | | | | MD INJECT | [place] | Phone: | | | | | ANES/STEROID | [address] | [phone] | | | | | FORAMEN | Phone: | Fax: | | | | | LUMBAR/SACRA | [phone] | [phone] | | | | | L W IMG | Fax: | | | | | | GUIDE ,1 | [phone] | | | | | | LEVEL MD | | | | | | | TRIAMCINOLON | | | | | | | E ACET INJ | | | | | | | NOS, 10 MG | | | | | | | Appt:3/ | | | | | | | [...] | +--------+ + + + + | 01/02/ | Hospital | [facility] | Luis Carlos Jiménez | Lumbar radiculopathy | | 2018 | Encounter | MED CTR XRAY [address] | T, [address] | | | | | [place] | [place], [place] | | | | | [place] [address] | [id number] | | | | | [phone] | | | | | | | [facility] | | +--------+ + + + [...] +---------+ + + | Blood Pressure | 131/77 | 01/02/2018 5:28 PM | | | | | PST [...] + + + +---------+ + + | predniSONE | | | 0 | 10/06/20 | | | (DELTASONE) 5 mg | | | | 17 | 8 | [...] + + + +---------+ + + | XELJANZ XR 11 MG | | | 0 | 07/12/20 | | | tablet | | | | 17 | 8 | + + + +---------+ + + | ziprasidone | | | 0 | 11/10/19 | | | (GEODON) 80 MG | | | | 18 | 8 | | capsule | | [...] [place] | | | | | | [address] | | | | | | | | +--------+---------+ + + + documented as of this encounter Procedures + +--------+ + + + | Procedure Name | Priori | Date/Time | Associated Diagnosis | Comments | | | ty | | | | + +--------+ + + + | FL EPIDURAL STEROID | Routin | 01/02/2018 | Lumbar | Results for this | | INJECTION LUMBAR | e | 5:16 PM | radiculopathy | procedure are in the | | TRANSFORAMINAL | | PST | | results section. | + +--------+ + + + documented in this encounter Results FL KELLY Lumbar Transforaminal (01/02/2018 5:16 PM PST) + + | Specimen | + + | | + + + + + | Narrative | Performed At | + + + | 01/02/2018 | [facility] | | Transforaminal Epidural [...] | |Anesthesia: Local 1% Lidocaine | | + + + + +---------+ [...] dexamethasone (PF) 10 mg/mL | Given | 01/03/20 | 10 mg | | | | injection 10 mg 10 mg, Other, | | 18 5:30 | | | | | ONCE, 01/02/18 at 1745, For 1 | | PM PST | | | | | dose | | | | | | + +--------+ +-------+------+------+ +---+---+ | | | +---+---+ + +-------+ +-------+---+---+ | iohexol (OMNIPAQUE 300) 300 | Given | 03/05/20 | 4 mLs | | | | mg/mL injection 4 mL 4 mL, | | 18 5:25 | | | | | Other, ONCE, 01/02/18 at 1745, | | PM PST | | | | | For 1 dose | | | | | | + +-------+ +-------+---+---+ +---+---+ | | | +---+---+ + +-------+ +-------+---+---+ | lidocaine (PF) 1% injection 2 | Given | 01/03/20 | 2 mLs | | | | mL 2 mL, Other, ONCE, 01/02/18 | | 18 5:30 | | | | | at 1745, For 1 dose | | PM PST | | | | + +-------+ +-------+---+---+ +---+---+ | | | +---+---+ + +-------+ +-------+---+ + | lidocaine buffered 1% injection | Given | 01/03/20 | 3 mLs | | Other | | 3 mL 3 mL, Intradermal, ONCE, | | 18 5:20 | | | (Comment | | 01/02/18 at 1745, For 1 dose | | PM PST | | | ) | + +-------+ +-------+---+ + +---+---+ | | | +---+---+ documented in this encounter"
--- OUTSIDE RECORDS SUMMARY | ~2019-09-09 | XMS | Encounter Summary ---
Demographics + + + | Address | [address] | | | [place] [address] | + + + | Home Phone | | + + + | Preferred Language | Unknown | + + + | Marital Status | | + + + | Hoahaoism Affiliation | Unknown | + + + | Race | Unknown | + + + | Ethnic Group | Unknown | + + + Author + + + | Author | [facility] | | | and [place] | + + + | Organization | [facility] | | | and [place] | + + + | Address | Unknown | + + + | Phone | Unavailable | + + + Support + + + + + | Name | Relationship | Address | Phone | + + + + + | Hneny Rea | ECON | [address] | | | | | [place], [place] | | | | | [address] | | + + + + + | Mao Rea | ECON | Unknown | | + + + + + | Meredith Rea | ECON | Unknown | | + + + + + | Iqra Medina | ECON | [address] | | | | | [place], [place] | | | | | [address] | | + + + + + | Maldonado Rea | ECON | Unknown | | + + + + + Care Team Providers + +------+ + | Care Brake Lining Driller Name | Role | Phone | + +------+ + | Brandon Juarez MD | PCP | | + +------+ + Reason for Visit + + + | Reason | Comments | + + + | Surgery Appointment | | + + + Encounter Details +--------+ + + + + | Date | Type | Department | Care Team | Description | +--------+ + + + + | 12/02/ | Telephone | [facility] [place] | Koby George MD | Surgery Appointment | | 2017 | | NEUROSURGERY [address] | [address] | | | | | [address] | [place] [address] | | | | | [place] | [phone] | | | | | [address] | | | | | | [phone] | | | +--------+ + + + [...] [place] | | | | | | [address] | | | | | | | | +--------+---------+ + + + documented as of this encounter Visit Diagnoses Not on filedocumented in this encounter"
--- OUTSIDE RECORDS SUMMARY | ~2019-09-09 | XMS | Encounter Summary ---
Demographics + + + | Address | [address] | | | [place] [address] | + + + | Home Phone | | + + + | Preferred Language | Unknown | + + + | Marital Status | | + + + | Latter-Day Affiliation | Unknown | + + + | Race | Unknown | + + + | Ethnic Group | Unknown | + + + Author + + + | Author | [facility] | | | and [place]ana | + + + | Organization | [facility] | | | and [...] [place], [place] | | | | | [address] | | + + + + + | Mao Rea | ECON | Unknown | | + + + + + | Meredith Rea | ECON | Unknown | | + + + + + | Iqra Medina | ECON | [address] | | | | | [place], [place] | | | | | [address] | | + + + + + | Maldonado Rea | ECON | Unknown | | + + + + + Care Team Providers + +------+ + | Care Parts Cleaner Name | Role | Phone | + +------+ + | Sherie Vela PA-C | PCP | | + +------+ + Encounter Details +--------+ + + + + | Date | Type | Department | Care Team | Description | +--------+ + + + + | 01/12/ | Imaging | [facility] | Provider, | | | 2019 | Exam | MED CTR EXTERNAL | MD Herminio [address] | | | | | IMAGING | [place] | | | | | [phone] | [place] [address] | | +--------+ + + + + [...] [place] | | | | | | [id number] | | | | | | | | +--------+---------+ + + + documented as of this encounter Procedures + +--------+ + + + | Procedure Name | Priori | Date/Time | Associated Diagnosis | Comments | | | ty | | | | + +--------+ + + + | MRI LUMBAR SPINE WO | Routin | 01/11/2019 | | Results for this | | CONTRAST | e | 10:10 AM | | procedure are in the | | | | PDT | | results section. | + +--------+ + + + documented in this encounter Results MRI Lumbar Spine wo Contrast (01/11/2019 10:10 AM PDT) + + | Specimen | [...]
--- OUTSIDE RECORDS SUMMARY | ~2019-09-09 | XMS | Encounter Summary ---
Demographics + + + | Address | [address] | | | [place] [address] | + + + | Home Phone | | + + + | Preferred Language | Unknown | + + + | Marital Status | | + + + | Anabaptism Affiliation | Unknown | + + + | Race | Unknown | + + + | Ethnic Group | Unknown | + + + Author + + + | Author | [facility] | | | and [place] | + + + | Organization | [facility] | | | and Carlosana [...] [place], [place] | | | | | [address] | | + + + + + | Mao Rea | ECON | Unknown | | + + + + + | Meredith Rea | ECON | Unknown | | + + + + + | Iqra Medina | ECON | [address] | | | | | [place], [place] | | | | | [address] | | + + + + + | Maldonado Rea | ECON | Unknown | | + + + + + Care Team Providers + +------+ + | Care Event Staff Member Name | Role | Phone | + +------+ + | Brandon Juarez MD | PCP | | + +------+ + Reason for Visit + + + | Reason | Comments | + + + | Medication Question | | + + + Encounter Details +--------+ + + + + | Date | Type | Department | Care Team | Description | +--------+ + + + + | 01/04/ | Telephone | [facility] [place] | Koby George MD | Medication Question | | 2017 | | NEUROSURGERY [address] | [address] | | | | | [address] | [place] [address] | | | | | [place] | [phone] | | | | | [address] | | | | | | [phone] | | | +--------+ + + + [...] [place] | | | | | | [address] | | | | | | | | +--------+---------+ + + + documented as of this encounter Visit Diagnoses Not on filedocumented in this encounter"
--- OUTSIDE RECORDS SUMMARY | ~2019-09-09 | XMS | Encounter Summary ---
Demographics + + + | Address | [address] | | | [place] [address] | + + + | Home Phone | | + + + | Preferred Language | Unknown | + + + | Marital Status | | + + + | Protestant Affiliation | Unknown | + + + | Race | Unknown | + + + | Ethnic Group | Unknown | + + + Author + + + | Author | [facility] | | | and [place]ana | + + + | Organization | [facility] | | | and [...] [place], [place] | | | | | [address] | | + + + + + | Mao Rea | ECON | Unknown | | + + + + + | Meredith Rea | ECON | Unknown | | + + + + + | Iqra Medina | ECON | [address] | | | | | [place], [place] | | | | | [address] | | + + + + + | Maldonado Rea | ECON | Unknown | | + + + + + Care Team Providers + +------+ + | Care Supervisor Hand Workers Name | Role | Phone | + [...] | | | lordosis | | [address] | | | | | (acquired) | | [place], | | | | | Other | | [place] [address] | | | | | lordosis | | Phone: | | | | | (acquired) | | [phone] | | | | | Procedures | | Fax: | | | | | [place] | | [phone] | | | | | ARTHRODESIS | [...] + + | 12/02/ | Hospital | [facility] | Koby George MD | Cancer (HCC) | | 2015 - | Encounter | MED CTR SURGICAL | [address] | (Primary Dx); | | | | [address] | [place] [address] | 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 [facility] NEUROSURGERY DISCHARGE SUMMARY Patient Name: Uziel Rea [...] signed by: Libia Jo RN 12/03/2014 18:44 ibia Jo RN - 12/03 3:40 PM PSTComplained of [...] Clifford PA - 12/03/2014 7:[address] [facility] PROGRESS NOTE Pt. Name/Age/: Uziel Rosen Rona 69 y.o. 1945 Med. Record Number: [id number] Date of admission: 12/02/2014 Subjective: The patient [...] Electronically signed by: Ender Mora, 12/03/2014 7:28 [facility] documented in th is encounter Plan of Treatment +--------+---------+ + + [...] Code | Container 1 | | [facility] | | | | | | MEDICAL | | | | | | CENTER - | | | | | | BLOOD BANK | | + + + + + + | UNIT # | [id number] | | [facility] | | | | [...] | | INTERP | | | [facility] | | [...] [address] | [place] | | | [facility] | | [address] | | | - BLOOD BANK | [...] | | | Code | | | [facility] | | | | | | MEDICAL | | | | | | CENTER - | | | | | | BLOOD BANK | | + + + + + + | UNIT # | [id number] | | [facility] | | | | [...] | | INTERP | | | [facility] | | [...] ST. | [address] | [place], [place] | | | [facility] | | [address] | | | - BLOOD BANK | [...] + | MISCELLANEOUS LAB | | | [phone] | + +---------+ + + | MISCELANIOUS LAB | | | [phone] | + +---------+ + + CBC no Differential (12/03/2014 6:21 AM PST) + + + + + + | Component | Value | Ref Range | Performed | Pathologist | | | | | At | Signature | + + + + + + | WBC | 11.6 (H) | 4.0 - 11.0 K/uL | [facility] | | | | | | [facility] | | | | | | MEDICAL | | | | | | CENTER - | | | | | | LABORATORY | | + + + + + + | RBC | 3.90 (L) | 4.30 - 5.70 | [facility] | | | | | M/uL | [facility] | | | | | | MEDICAL | | | | | | CENTER - | | | | | | LABORATORY | | + + + + + + | Hemoglobin | 12.8 (L) | 13.5 - 18.0 | [facility] | | | | | g/dL | [facility] | | | | [...] | | | | g/dL | [facility] | | | | [...] + | [facility] | [address] | [place], [place] | [phone] | | [facility] | | [address] | | | - LABORATORY | | | | + + + + + | [facility] | [address] | [place], [place] | | | [facility] | | [address] | | | - LABORATORY | | [...] | | Screen | | | [facility] | | [...] St | [place] | | | [facility] | | [address] | | | - BLOOD BANK | | | | + + + + + PTT (12/02/2014 12:05 PM PST) + +-------+ + + + | Component | Value | Ref Range | Performed | Pathologist | | | | | At | Signature | + +-------+ + + + | aPTT | 28 | 22 - 36 seconds | [facility] | | | | | | ST. [...] + + | [facility] | [address] | [place] | [phone] | | [facility] | | [address] | | | - LABORATORY | | | | + + + + + | [facility] | [address] | [place] | | | [facility] | | [address] | | | - LABORATORY | | [...] | | Time | | seconds | [facility] | | | | | | MEDICAL | | | | | | CENTER - | | | | | | LABORATORY | | + + + + + + | INR | 1.04Comment: Usual Oral | 0.90 - 1.10 | [facility] | | | | Anticoagulation Range: | | [facility] | | | | 2.0 - 3.0High [...] [address] | [place] | [phone] | | [facility] | | [address] | | | - LABORATORY | | | | + + + + + | [facility] | [address] | [place] | | | [facility] | | [id number] | | | - LABORATORY | | [...] | | | | | Indigestion, Starting 12/02/14 | | | | | | | at 2011, Main well., | | | | | | | [...] | | | | | | use Wana 10/325 if ordered. If | | | [...] | | | | PRN, Pain, Starting 12/02/14 at | | PM PST | | [...]
--- OUTSIDE RECORDS SUMMARY | ~2019-09-09 | XMS | Encounter Summary ---
Demographics + + + | Address | [address] | | | [place] [address] | + + + | Home Phone | | + + + | Preferred Language | Unknown | + + + | Marital Status | | + + + | Oriental Orthodox Affiliation | Unknown | + + + | Race | Unknown | + + + | Ethnic Group | Unknown | + + + Author + + + | Author | [facility] | | | and Carlosana | + + + | Organization | [facility] | | | and Carlosana [...] [place], [place] | | | | | [address] | | + + + + + | Mao Rea | ECON | Unknown | | + + + + + | Meredith Rea | ECON | Unknown | | + + + + + | Iqra Medina | ECON | [address] | | | | | [place], [place] | | | | | [address] | | + + + + + | Maldonado Rea | ECON | Unknown | | + + + + + Care Team Providers + +------+ + | Care Power Ballast Machine Operator Name | Role | Phone | + +------+ + | Brandon Juarez MD | PCP | | + +------+ + Encounter Details +--------+ + + + + | Date | Type | Department | Care Team | Description | +--------+ + + + + | 10/21/ | [facility] | [facility] | Ender Mora | Hip pain, chronic, | | 2014 | Encounter | MED CTR XRAY [address] | [address] | left | | | | [place] | [address] | | | | | [place] [address] | [place] | | | | | [phone] | [id number] | | | | | | | [...] [place] | | | | | | [address] | | | | | | | [...] None available. FINDINGS: Proximal left femur | [facility] | | appears intact, without evidence of [...] + + + + + | KEVIN FARLEY | [address] | [place] | [phone] | | [facility] | | [address] | | | - IMAGING | | | | + + + + + documented in this encounter Visit Diagnoses + + | Diagnosis | + + | Hip pain, chronic, left | + + documented in this encounter"
--- OUTSIDE RECORDS SUMMARY | ~2019-09-09 | XMS | Encounter Summary ---
Demographics + + + | Address | [address] | | | [place] [address] | + + + | Home Phone | | + + + | Preferred Language | Unknown | + + + | Marital Status | | + + + | Congregation Affiliation | Unknown | + + + | Race | Unknown | + + + | Ethnic Group | Unknown | + + + Author + + + | Author | [facility] | | | and Carlosana | + + + | Organization | [facility] | | | and Carlosana [...] [place], [place] | | | | | [address] | | + + + + + | Mao Rea | ECON | Unknown | | + + + + + | Meredith Rea | ECON | Unknown | | + + + + + | Iqra Medina | ECON | [address] | | | | | [place], [place] | | | | | [address] | | + + + + + | Maldonado Rea | ECON | Unknown | | + + + + + Care Team Providers + +------+ + | Care Teacher Drama Name | Role | Phone | + +------+ + | Brandon Juarez MD | PCP | | + +------+ + Reason for Visit +---------+ + | Reason | Comments | +---------+ + | Post Op | Update | +---------+ + Encounter Details +--------+ + + + + | Date | Type | Department | Care Team | Description | +--------+ + + + + | 12/09/ | Telephone | [facility] | Koby George MD | Post Op (Update) | | 2015 | | NEUROSURGERY [address] | [address] | | | | | [address] | [place] [address] | | | | | [place] | [phone] | | | | | [address] | | | | | | [phone] | | | +--------+ + + + [...] [place] | | | | | | [address] | | | | | | | | +--------+---------+ + + + documented as of this encounter Visit Diagnoses Not on filedocumented in this encounter"
--- OUTSIDE RECORDS SUMMARY | ~2019-09-09 | XMS | Encounter Summary ---
Demographics + + + | Address | [address] | | | [place] [address] | + + + | Home Phone | | + + + | Preferred Language | Unknown | + + + | Marital Status | | + + + | Pentecostalism Affiliation | Unknown | + + + | Race | Unknown | + + + | Ethnic Group | Unknown | + + + Author + + + | Author | [facility] | | | and Carlosana | + + + | Organization | [facility] | | | and [...] [place], [place] | | | | | [address] | | + + + + + | Mao Rea | ECON | Unknown | | + + + + + | Meredith Rea | ECON | Unknown | | + + + + + | Iqra Medina | ECON | [address] | | | | | [place], [place] | | | | | [address] | | + + + + + | Maldonado Rea | ECON | Unknown | | + + + + + Care Team Providers + +------+ + | Care Dispatch Machine Runner Name | Role | Phone | + +------+ + | Sherie Vela PA-C | PCP | | + +------+ + Reason for Visit + + + | Reason | Comments | + + + | Neurologic Problem | Parkinson's follow up | + + + Encounter Details +--------+---------+ + + + | Date | Type | Department | Care Team | Description | +--------+---------+ + + + | 02/07/ | Office | [facility] | DawsonJarvis Lazarus, | Probable Idiopathic | | 2019 | Visit | [facility] [place] | MD Shavon CARCAMO | Parkinson's disease | | | | [address], | [place] [address] | (HCC) (Primary Dx); | | | | [address] [place] | [place] | 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 | | | | [place] [address] | [address] | use of atypical | | | | [phone] | | antipsychotic | | | | | | medication; | | | | | | Essential tremor; | | | | | | Orthostatic | | | | | | dizziness; REM sleep | | | | | | behavior disorder; | | | | | | Mild [...] + + + | Blood Pressure | 122/80 | 02/07/2019 10:31 AM | | | | | PDT | | + + + + + | Pulse | 60 | 02/07/2019 10:31 AM | | | | | PDT | | + + + + + | Temperature | 36.4 C (97.5 F) | 02/07/2019 10:31 AM | | | | | PDT | | + + + + + | Respiratory Rate | 18 | 02/07/2019 10:31 AM | | | | | PDT | | + + + + + | Oxygen Saturation | 97% | 02/07/2019 10:31 AM | | | | | PDT | | + + + + + | Inhaled Oxygen | - | - | | | Concentration | | | | + + + + + | Weight | 104.2 kg (229 lb | 02/07/2019 10:31 AM | | | | 11.5 oz) | PDT | | + + + + + | Height | 172.7 cm (5' 8") | 02/07/2019 10:31 AM | | | | | PDT | | + + + + + | Body Mass Index | 34.93 | 02/07/2019 10:31 AM | | | | | PDT [...] encounter Progress Notes Jarvis Dawson MD - 02/07/2019 10:15 AM PDTFormatting of this note might be different fr om the original. [facility] NEUROLOGY FOLLOW UP NOTE Primary Care Physician: Sherie Vela PATIENT NAME: Uziel Rea : 1945 TODAY'S DATE: 02/07/2019 SUMMARY/DISCUSSION/COUNSELING: The patient is a 73-year-old man with essential tremor as well as parkinsonian tremor and p arkinsonian motor symptoms probably related to underlying idiopathic Parkinson's disease. E valuation is complicated by long history of atypical antipsychotic use which he continues at this time for history of major depression ([facility]). I discussed with the patie nt and his about trying carbidopa/levodopa. He states that he tried this with Dr. Hernandez in in the distant past and it was not effective at the time. But, he is willing to try it a gain and I advised that he start with 25/100 once a day increasing by 1 tablet every 3 days up to 1 tablet 3 times a day. He is to call my office in 1 month to give me a report on how he is doing. If he does well, then I plan to continue to titrated up to 50/200 3 times jake ly. Potential side effect of worsening of pre-hallucinations to heidi hallucinations, count eraction of his atypical antipsychotic medicine, drowsiness, upset stomach, discussed. The patient is concerned about orthostatic dizziness. But his standing blood pressure toda y was normal. I think he is interpreting his postural instability as dizziness and the malcolm ent think that is probable. There is no pharmacological treatment for postural instability and Parkinson's disease. But physical therapy is helpful. I referred him to [employer] boxing for Parkinson's motor symptoms. I also advised physic al therapy may be helpful and it appears that he is already getting this. The patient states that he is having some choking and coughing when he is swallowing solid and liquid. Interestingly his has not noted this. I will have him evaluated by speech pathologist for swallow. He is recommended continue on melatonin 5 mg at bedtime for REM sleep behavior disorder. I discussed about option of increasing the dose if his violent dream enactment behavior recur s. I advised him to return in 3 months for follow-up. IMPRESSION: 1. 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 custodial current use of atypical antipsychotic medication 3. Essential tremor 4. Orthostatic dizziness 5. REM sleep behavior disorder 6. Mild cognitive impairment 7. Obstructive sleep apnea of adult 8. Intolerance of continuous positive airway pressure (CPAP) ventilation 9. Abnormality of gait due to impairment of balance 10. Chronic bilateral low back pain without sciatica UPDRS Total Score: 67 Louise/Yahr: Stage 3 Dima/Wero PD: 100% Dima/Wero Dyskinesia: 100% RECOMMENDATIONS: 1. Start carbidopa/levodopa 25/100, 1 tablet daily and increase by 1 tablet every 3 days u p to 1 tablet 3 times a day. 2. Patient to call my office 1 month later to report his response to carbidopa/levodopa. If there is no significant response but the patient is able to tolerate the medicine, I plan to continue to titrate up to goal of 50/200 3 times daily. 3. Continue physical therapy for gait. [employer] boxing also introduced. 4. Continue cognitive therapy through speech therapist. 5. Swallow evaluation by speech therapist. Return in about 3 months (around 05/09/2019) for Parkinson follow up. I spent at least 40 [...] for explanation. CHIEF COMPLAINT: Neurologic Problem (Parkinson's follow up) History OF PRESENT ILLNESS: Uziel Rea is a 73 y.o. male with Parkinson's disease who is returning for a follow up. The patient is accompanied by his . The history is provided by the patient and assiste d by the patient's . He was not able to tolerate CPAP therapy and stopped using it. He has history of using ora l appliance therapy for numerous years which began more than 5 years ago. But after tooth i mplant it was not fitting anymore therefore he gave it up. He is not interested in going ba to oral appliance therapy either. The patient feels that his tremor overall is worse especially when he has increase in stres s. There appears to be some family history with contention between his son. He states that he spills food and drinks on a daily basis. His writing is worse but it is still legible. He has not fallen since his last visit with me. He walks with a single prong cane. His ga it is about the same. There is no freezing. Gait is limited by chronic lower back pain. He states that he is getting occupational therapy for his motor functioning including gait as well as speech therapy for his cognitive impairment. History neck pain is much better on melatonin 5 mg at bedtime according to his . She g oes to bed with the patient. But if there is any slight twitching that she gets out of bed and goes to a different room. This has been improved and that she is able to stay in bed wi th him longer. She notices some nightly twitching of his extremities. But no violent actin g out of his dreams for more than 8 months now. She hears him occasionally yell in the midd le of the night. The patient states that he is sleeping for maybe 3-4 hours per night. He is waking in the middle of the night mostly because of the lower back pain. Sometimes he is able to return t o sleep after 3-4 hours of being awake. But most nights he gets only 3-4 hours. He naps fo r about 20 minutes 1-2 times a day which are refreshing. He states that he has dizziness when he stands and also while he is walking. This is part of the reason why he walks slow and cautiously. Orthostatic blood pressure was taken today and shows no significant orthostatic blood pressure drop from sitting to standing. He occasionally sees shadows in the corner of his visual field. No heidi hallucinations no david. UPDRS Results UPDRS Total Score: 67 Section 1: Mentation/Mood Total Score: 4 1. Intellectual Impairment: 1 2. Thought Disorder: 0 3. Depression: 2 4. Motivation: 1 Section 2: ADLs Section Score: 17 5. Speech: 1 6. Salivation: 2 7. Swallowin 8. Handwritin 9. Cutting Food/Utensil Use: 1 10. Dressin 11. Hygiene: 1 12. Turning in Bed: 1 13. Fallin 14. Freezing with Walkin 15. Walkin 16. Handwritin 17. Sensory Complaints: 0 REVIEWED SLEEP AND NEUROLOGY HISTORY: [facility] 73 y.o.RHD malewith history of major depression treated chronica lly with atypical antipsychotics and lithium, chronic immunomodulation for RA, LEANDRO, COPD, wh o was referred to me by DOM Dennis-Cfor evaluation of Parkinson's disease. [facility] LEANDRO and RBD. 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 Sma ll amount of REM without atonia was noted. 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 No PLMS noted. Sleep fragmentation p rimarily associated with sleep related breathing disorder. PAP Titration - 03/09/18 - [facility] Impression: The patient had CPAP on all night. But, no sleep was recorded during this study . Therefor, no treatment recommendation can be made. 09/25/18 ESS: 4 FSS: 4.1 11/29/18 ESS: [...] of chronic use of atypical antipsycho tics (Jason, currently on cariprazine) 5. LEANDRO, intolerant to CPAP 6. Chronic immuno-modulation therapy for rheumatoid arthritis 7. Chronic lower back pain s/p 2 lumbar spine surgeries (followed by Dr. George) Since the patient's last visit, the patient reports the following: Visit to the ER or hospital? NO New test performed? YES Test and result: MRI Have been seen by any other providers? YES Provider: Dr. Jessica at pain clinic. Reason: injection, SI joint. ALso spech therapy and o ccupational therpay at REVIEW OF SYSTEMS Review of Systems Constitutional: Positive for malaise/fatigue. HENT: Positive for hearing loss (wears hearing aid). Musculoskeletal: Positive for back pain. Negative for falls. Neurological: Positive for tremors. Psychiatric/Behavioral: Positive for hallucinations (PRE-HALLUCINATIONS) and memory loss. T he patient has insomnia. PHYSICAL EXAM Vitals with Comments 12/06/2018 12/06/2018 01/02/2019 02/07/2019 SYSTOLIC 131 167 130 122 DIASTOLIC 67 96 78 80 Pulse 68 - 70 60 Temp - - - 97.5 Temp Comments - - - - Resp - - - 18 Weight - - 228 lbs 3 oz 229 lbs 12 oz Height - - 5' 8" 5' 8" SPO2 - - - 97 BMI - - 34.8 kg/m2 35 kg/m2 Pain Score - - 7 - Pain Score - - lower back radiating to right hip and leg - Pain Loc - - Generalized - Pain Edu? - - - - Physical Exam Constitutional: He is oriented to person, place, and time. Neurological: He is oriented to person, place, and time. Yysqwm-xxfz-djwcml test: mild bila teral tremor. Neurologic Exam Mental Status Oriented to person, place, and time. Attention: normal. Speech: (Mild hypophonia) Level of consciousness: alert Knowledge: good and consistent with education. Normal comprehension. Cranial Nerves CN VII Facial expression full, symmetric. Right facial weakness: mild hypopmimia. CN VIII CN VIII normal. Hearing: intact (wears hearing aid) Motor Exam Muscle bulk: normal Right arm tone: increased (mild) Left arm tone: increased (mild) Right leg tone: increased Left leg tone: increased (moderate bilateral) Sensory Exam Left leg vibration: absent at the toes bilateral. Gait, Coordination, and Reflexes Gait Gait: (slow, enhanced tremor of hand worse on the right. No shuffling or festination.) Coordination Cfhmub-kdwj-zqdacb test: mild bilateral tremor. Tremor Resting tremor: present (intermittent mild to moderate amplitude, moderate frequency, worse on the right) Intention tremor: present (moderate bilateral) Able to stand slow with arms crossed. Pull test: falls if not caught. SPECIAL MOTOR EXAM: Patient: cris 02/07/2019 11:20AM Section 3: Motor Total Score: 42 18. Speech: 1 19. Facial Expression: 2 20a. Tremor at Rest: Face: 2 20b. Tremor at Rest: Right Hand: 1 20c. Tremor at Rest: Left Hand: 2 20d. Tremor at Rest: Right Foot: 1 20e. Tremor at Rest: Left Foot: 1 21a. Hand Action Tremor: Right: 2 21b. Hand Action Tremor: Left: 2 22a. Rigidity: Neck: 2 22b. Rigidity: Right Arm: 2 22c. Rigidity: Left Arm: 1 22d. Rigidity: Right Le 22e. Rigidity: Left Le 23a. Finger Taps: Right: 2 23b. Finger Taps: Left: 2 24a. Hand Movements: Right: 2 24b. Hand Movements: Left: 1 25a. Rapid Alt. Mvmt: Right: 2 25b. Rapid Alt. Mvmt: Left: 2 26a. Leg Agility: Right: 1 26b. Leg Agility: Left: 0 27. Arising From Chair: 1 28. Posture: 1 29. Gait: 1 30. Postural Stability: 2 31. Body Bradykinesia: 2 Section 4: Complications Total Score: 4 32. Dyskinesia Duration: 0 33. Dyskinesia Dysability: 0 34. Dyskinesia Pain: 0 35. Sheriff'S Sergeant Dystonia: 1 36. Predictable Off Periods: 0 37. Unpredictable Off Periods: 0 38. Sudden Off Periods: 0 39. % Waking Day Off: 0 40. Anorexia,Nausea,Emesis: 1 41. Sleep Disturbances: 1 42. Symptomatic Orthostasis: 1 Diagnostic Studies: Laboratory studies and imaging were personally reviewed by me. Chemistry: Lab Results Component Value Date NA 141 02/18/2017 K 4.0 02/18/2017 CO2 26 02/18/2017 BUN 10 02/18/2017 CREA 0.75 02/18/2017 GLU 107 02/18/2017 Hematology: Lab Results Component Value Date HGB 13.9 02/18/2017 HCT 42.1 02/18/2017 WBC 8.0 02/18/2017 PAST MEDICAL HISTORY Past Medical History: Diagnosis Date Actinic keratosis Anxiety Arthritis rheumatoid Asthma, exercise induced Cancer (HCC) 2003 colon cancer Chronic major depressive disorder, recurrent episode (HCC) Chronic pain Colon cancer (HCC) COPD (chronic obstructive pulmonary disease) ([facility]) Degenerative disc disease, lumbar Depression GERD (gastroesophageal [...] Daily. DULoxetine (CYMBALTA) [address] capsule fluticasone [...] morning (before breakfast ). propranolol (INDERAL LA) 160 mg SR capsule Take 160 mg by mouth Daily. simvastatin (ZOCOR) 40 mg tablet Take 40 mg by mouth Daily. VRAYLAR 4.5 MG capsule No current facility-administered medications for this visit. 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
--- OUTSIDE RECORDS SUMMARY | ~2019-09-09 | XMS | Encounter Summary ---
Demographics + + + | Address | [address] | | | [place] [address] | + + + | Home Phone | | + + + | Preferred Language | Unknown | + + + | Marital Status | | + + + | Alevism Affiliation | Unknown | + + + | Race | Unknown | + + + | Ethnic Group | Unknown | + + + Author + + + | Author | [facility] | | | and Carlosana | + + + | Organization | [facility] | | | and [...] [place], [place] | | | | | [address] | | + + + + + | Mao Rea | ECON | Unknown | | + + + + + | Meredith Rea | ECON | Unknown | | + + + + + | Iqra Medina | ECON | [address] | | | | | [place], [place] | | | | | [address] | | + + + + + | Maldonado Rea | ECON | Unknown | | + + + + + Care Team Providers + +------+ + | Care Plastic Extruding Machine Operator Name | Role | Phone | + +------+ + | Sherie Vela PA-C | PCP | | + +------+ + Reason for Visit + + + | Reason | Comments | + + + | Sleep Medicine | | | Appointment | | + + + Encounter Details +--------+ + + + + | Date | Type | Department | Care Team | Description | +--------+ + + + + | 07/14/ | Telephone | [facility] [place] | Jarvis Dawson, | Sleep Medicine | | 2018 | | [facility] [place] | [address] [facility] | Appointment | | | | [address] [facility], | [place] [address] | | | | | [address] [place] | [place], [place] | | | | | [place] [address] | [address] | | | | | [phone] | | | +--------+ + + + [...] [place] | | | | | | [address] | | | | | | | | +--------+---------+ + + + documented as of this encounter Visit Diagnoses Not on filedocumented in this encounter"
--- OUTSIDE RECORDS SUMMARY | ~2019-09-09 | XMS | Encounter Summary ---
Demographics + + + | Address | [address] | | | [place] [address] | + + + | Home Phone | | + + + | Preferred Language | Unknown | + + + | Marital Status | | + + + | Jehovah'S Witness Affiliation | Unknown | + + + | Race | Unknown | + + + | Ethnic Group | Unknown | + + + Author + + + | Author | [facility] | | | and [place]ana | + + + | Organization | [facility] | | | and Carlosana [...] [place], [place] | | | | | [address] | | + + + + + | Mao Rea | ECON | Unknown | | + + + + + | Meredith Rea | ECON | Unknown | | + + + + + | Iqra Medina | ECON | [address] | | | | | [place], [place] | | | | | [address] | | + + + + + | Maldonado Rea | ECON | Unknown | | + + + + + Care Team Providers + +------+ + | Care Project Director Name | Role | Phone | + +------+ + | Brandon Juarez MD | PCP | | + +------+ + Reason for Visit + + + | Reason | Comments | + + + | Surgery Appointment | check in instructions | + + + Encounter Details +--------+ + + + + | Date | Type | Department | Care Team | Description | +--------+ + + + + | 02/21/ | Telephone | [facility] [place] | Koby George MD | Surgery Appointment | | 2017 | | NEUROSURGERY [address] | [address] | (check in | | | | [address] | [place] [address] | instructions ) | | | | [place], [place] | [phone] | | | | | [address] | | | | | | [phone] | | | +--------+ + + + [...] [place] | | | | | | [address] | | | | | | | | +--------+---------+ + + + documented as of this encounter Visit Diagnoses Not on filedocumented in this encounter"
--- OUTSIDE RECORDS SUMMARY | ~2019-09-09 | XMS | Encounter Summary ---
Demographics + + + | Address | [address] | | | [place] [address] | + + + | Home Phone | | + + + | Preferred Language | Unknown | + + + | Marital Status | | + + + | Oriental Orthodox Affiliation | Unknown | + + + | Race | Unknown | + + + | Ethnic Group | Unknown | + + + Author + + + | Author | [facility] | | | and [place]ana | + + + | Organization | [facility] | | | and Carlosana [...] [place], [place] | | | | | [address] | | + + + + + | Mao Rea | ECON | Unknown | | + + + + + | Meredith Rea | ECON | Unknown | | + + + + + | Iqra Medina | ECON | [address] | | | | | [place], [place] | | | | | [address] | | + + + + + | Maldonado Rea | ECON | Unknown | | + + + + + Care Team Providers + +------+ + | Care Dobby Loom Fixer Name | Role | Phone | + +------+ + | Brandon Juarez MD | PCP | | + +------+ + Reason for Visit + + + | Reason | Comments | + + + | Follow-up | Pre-Op | + + + Encounter Details +--------+---------+ + + + | Date | Type | Department | Care Team | Description | +--------+---------+ + + + | 11/27/ | Office | [facility] | Ender Mora | Lumbar stenosis with | | 2015 | Visit | NEUROSURGERY [address] | [address] | neurogenic | | | | [address] | [address] | claudication | | | | [place], [place] | [place], [place] | (Primary Dx); | | | | [address] | [address] | Spondylolisthesis of | | | | [phone] | | lumbar region; Left | | | | | | lumbar | | | | | | radiculopathy; Flat | | | | | | back syndrome; | | | | | | 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, lumbar; | | | | | | Facet arthropathy, | | | | | | lumbar; Foraminal | | | | | | stenosis of lumbar | | | | | | region | +--------+---------+ + + + Social [...] + + + | Blood Pressure | 132/72 | 11/27/2014 7:58 AM | | | | | PST | | + + + + + | Pulse | 54 | 11/27/2014 7:58 AM | | | | | PST | | + + + + + | Temperature | - | - | | + + + + + | Respiratory Rate | 18 | 11/27/2014 7:58 AM | | | | | PST | | + + + + + | Oxygen Saturation | - | - | | + + + + + | Inhaled Oxygen | - | - | | | Concentration | | | | + + + + + | Weight | 91.6 kg (202 lb) | 11/27/2014 7:58 AM | | | | | PST | | + + + + + | Height | 175.3 cm (5' 9") | 11/27/2014 7:58 AM | | | | | PST | | + + + + + | Body Mass Index | 29.83 | 11/27/2014 7:58 AM | | | | | PST | | + + + + + documented in this encounter Patient Instructions Patient Instructions Ender Mora PA - 11/27/2014 8:28 AM PSTDo not eat or drink anything after midnight the night before surgery. If you have any changes in your health be tween now and the timing of surgery please let us know. documented in this encounter Progress Notes Endre Mora PA - 11/27/2014 8:33 AM PSTFormatting of this note might be differen t from the original. DOM Sampson [address] [place] [address], [address] [place] [address] FAX: NEUROSURGERY HISTORY AND PHYSICAL EXAMINATION CHIEF [...] has no apparent deficits with short or laborer marine terminal memory. CRANIAL NERVES: II: Acuity is intact. [...] patient today, and I greatly appreciate the amy matson. The patient has lumbar disease with severe [...] 11/27/2014 8:33 documented in th is encounter Plan of Treatment +--------+---------+ + + + | Date | Type | Specialty | Care Team | Description | +--------+---------+ + + + | 12/07/ | Office | Neurology | Abundio Khanna MD | | | 2019 | Visit | | [address] | | | | | | [place] | | | | | | [phone] | | | | | | | | +--------+---------+ + + + documented as of this encounter Visit Diagnoses + + | Diagnosis | + + | Lumbar stenosis with neurogenic claudication - Primary Spinal stenosis, lumbar | | region, with neurogenic claudication | + + | Spondylolisthesis of lumbar region Acquired spondylolisthesis | + + | Left lumbar radiculopathy Thoracic or lumbosacral neuritis or radiculitis, | | unspecified | + + | Flat back syndrome Other lordosis (acquired) | + + | Degenerative disc disease, lumbar Degeneration of lumbar or lumbosacral | | intervertebral disc | + + | Facet arthropathy, lumbar Lumbosacral spondylosis without myelopathy | + + | Foraminal stenosis of lumbar region Spinal stenosis, lumbar region, without | | neurogenic claudication | + + documented in this encounter
--- OUTSIDE RECORDS SUMMARY | ~2019-09-09 | XMS | Encounter Summary ---
Demographics + + + | Address | [address] | | | [place] [address] | + + + | Home Phone | | + + + | Preferred Language | Unknown | + + + | Marital Status | | + + + | Hoahaoism Affiliation | Unknown | + + + | Race | Unknown | + + + | Ethnic Group | Unknown | + + + Author + + + | Author | [facility] | | | and [place] | + + + | Organization | [facility] | | | and [place]ana [...] [place], [place] | | | | | [address] | | + + + + + | Mao Rea | ECON | Unknown | | + + + + + | Meredith Rea | ECON | Unknown | | + + + + + | Iqra Medina | ECON | [address] | | | | | [place], [place] | | | | | [address] | | + + + + + | Maldonado Rea | ECON | Unknown | | + + + + + Care Team Providers + +------+ + | Care Certified Respiratory Therapist Name | Role | Phone | + +------+ + | Sherie Vela PA-C | PCP | | + +------+ + Encounter Details +--------+ + + + + | Date | Type | Department | Care Team | Description | +--------+ + + + + | [facility] | Ender Mora | S/P lumbar fusion; | | 2017 | Encounter | MED CTR XRAY [address] | [address] | Lumbar | | | | [place] | [address] | radiculopathy; | | | | [place] [address] | [place], [place] | Foraminal stenosis | | | | [phone] | [address] | of lumbar region; | | | [...] [place] | | | | | | [address] | | | | | | | [...] | | | gastrointestinal tract within the ittma-vn-uubv is unremarkable. | | | IMPRESSION - [...] | | the gastrointestinal tract within the reqxg-zm-lwft is unremarkable. | | | | IMPRESSION [...]
--- OUTSIDE RECORDS SUMMARY | ~2019-09-09 | XMS | Encounter Summary ---
Demographics + + + | Address | [address] | | | [place] [address] | + + + | Home Phone | | + + + | Preferred Language | Unknown | + + + | Marital Status | | + + + | Sikh Affiliation | Unknown | + + + | Race | Unknown | + + + | Ethnic Group | Unknown | + + + Author + + + | Author | [facility] | | | and [place]ana | + + + | Organization | [facility] | | | and [...] [place], [place] | | | | | [address] | | + + + + + | Mao Rea | ECON | Unknown | | + + + + + | Meredith Rea | ECON | Unknown | | + + + + + | Iqra Medina | ECON | [address] | | | | | [place], [place] | | | | | [address] | | + + + + + | Maldonado Rea | ECON | Unknown | | + + + + + Care Team Providers + +------+ + | Care French Translator Name | Role | Phone | + [...] Description | +--------+---------+ + + + | 11/20/ | Office | [facility] | Logan Soto, | Chronic left-sided | | 2019 | Visit | PHYSIATRY [address] | [address] | low back pain with | | | | [place], | [place], [place] | left-sided sciatica | | | | [place] [address] | [address] | (Primary Dx); Lumbar | | | | [phone] | | radiculopathy; | | | | | | History of lumbar | | | | | | fusion; Failed back | | | | | | surgical syndrome; | | | | | | Left leg weakness; | | | | | | Bilateral leg | | | | | | numbness; | | | | | | Parkinsonian tremor | | | | | | ([facility]) | +--------+---------+ + + + Social History [...] + + + | Blood Pressure | 130/80 | 11/20/2018 11:45 AM | | | | | PST | | + + + + + | Pulse | 64 | 11/20/2018 11:45 AM | | | | | PST | | + + + + + | Temperature | - | - | | + + + + + | Respiratory Rate | 20 | 11/20/2018 11:45 AM | | | | | PST | | + + + + + | Oxygen Saturation | - | - | | + + + + + | Inhaled Oxygen | - | - | | | Concentration | | | | + + + + + | Weight | 101.2 kg (223 lb) | 11/20/2018 11:45 AM | | | | | PST | | + + + + + | Height | 172.7 cm (5' 8") | 11/20/2018 11:45 AM | | | | | PST | | + + + + + | Body Mass Index | 33.91 | 11/20/2018 11:45 AM | | | | | PST [...] Instructions Patient Instructions Petra Prater RN - 11/20/2018 11:30 AM PSTPlejuarez attend the inject ion appointment with Luis Carlos Jiménez MD. If his office has not contacted you within one we ek, to schedule the injection, please contact my clinic. Your injection will be performed a t [facility]. Please take [...] of the procedure you must provide a residential recycle driver to take you home. For all procedur es it is recommended that someone else drive you home. documented in this encounter Progress Notes Logan Soto MD - 11/20/2018 11:30 AM PSTFormatting of this note might be different fro m the original. Logan Soto MD [address] [facility], [address] [place], [place] [id number] FAX: PHYSICAL MEDICINE AND REHABILITATION H&P CHIEF COMPLAINT: Chief Complaint Patient presents with Back Pain HISTORY OF PRESENT ILLNESS: Uziel Rea is a 73 y.o. male being seen today in follow-up for complaints of back raj n and to review response to interventional injections. Uziel Rea was last seen on 07/17/18. Previously it was recommended that he complete repeat treatment with Dr. Ernesto hoffman Overall Uziel Rae reports that his symptoms were again improved after his most recen t TFESI. He indicates that approximately 2 weeks ago he started to notice increased pain. Uziel Rea rates his back pain as 7 on scale of 1-10. Uziel Rea describes t he pain as aching and sharp. His symptoms worsen with walking, and riding in a car. His sy mptoms improve with lying down, use of gabapentin and Cymbalta, and steroid injections. D jose Rea does describe numbness of the bilateral legs, worse to the left and bilatera l feet. He does report weakness of the bilateral legs, worse to the left. He uses a singl e point cane for aid with ambulation. He does not have bowel and bladder dysfunction. He does not have saddle anesthesia. Treatments for these complaints have included medication, bone growth stimulator, Physical Therapy, steroid injections, and surgical interventions. Uziel Rea is currently taki ng Cymbalta 60 mg and gabapentin 400 mg twice daily, for treatment his of pain. Prior injections have included left L2-L3 transforaminal epidural steroid injection. Uzile Rea's most recent injection was completed 07/24/18, with Dr. Jiménez. Uziel collazo reports having approximately 80% improvement directly following the injection. Uziel Rea reports that 2 weeks following the injection he experienced approximately 80% impro vement to his back pain. Today Uziel Rea reports that the effects of the injection la sted approximately 3.5 months. Uziel Rea's medications, allergies, past medical, surgical, social and family histor ies were reviewed and updated as appropriate. CURRENT MEDICATIONS: Current Outpatient Prescriptions Medication Sig Dispense Refill Ascorbic Acid (VITAMIN C WITH TOM HIPS) 500 MG tablet Take 500 mg by mouth Daily. Calcium Carb-Cholecalciferol (CALCIUM + D3) 600-800 MG-UNIT TABS Take 2 tablets by mout h Daily. Cholecalciferol (VITAMIN D-3) 2000 units CAPS Take 4,000 Units by mouth Daily. cyanocobalamin (VITAMIN B-12) 1000 MCG tablet Take 1,000 mcg by mouth Daily. DULoxetine (CYMBALTA) [address] capsule fluticasone (FLOVENT HFA) 110 mcg/puff inhaler Inhale 1 puff into the lungs 2 times jake ly. gabapentin (NEURONTIN) 400 mg capsule Take 400 mg by mouth Daily. glucosamine-chondroitin (GLUCOSAMINE-CHONDROITIN DS) 500-400 MG tablet Take [...] nightly. methotrexate (PF) 25 mg/mL injection Inject 0.6 mg into the muscle Once a week. Misc Natural Products (TURMERIC CURCUMIN) CAPS Take 2 capsules by mouth Daily. Multiple Vitamins-Minerals (A THRU Z ADVANCED) TABS (Patient taking differently: Take 1 tablet by mouth Daily.) mycophenolate (CELLCEPT) 500 MG tablet Take 1,000 mg by mouth 2 times daily. OTake 3 ta bles on Tuesday, Tuesday, and Tuesday Champion-3 Fatty Acids (FISH OIL) 1200 MG CAPS Take 2 capsules by mouth Daily. omeprazole (PRILOSEC) 20 mg capsule Take 20 mg by mouth every morning (before breakfast ). propranolol (INDERAL LA) 160 mg SR capsule Take 160 mg by mouth Daily. simvastatin (ZOCOR) 40 mg tablet Take 40 mg by mouth Daily. VRAYLAR 4.5 MG capsule zolpidem (AMBIEN) 5 mg tablet Take 1 tablet by mouth nightly as needed for Insomnia. 30 tablet 2 No current facility-administered medications for this visit. [...] and urgency. Incontinence Musculoskeletal: Positive for back pain. Skin: Negative. Neurological: Positive for dizziness, tingling, tremors, sensory change, focal weakness, we akness and headaches. Negative for speech change, seizures and loss of consciousness. Endo/Heme/Allergies: Negative. Psychiatric/Behavioral: Positive for depression and memory loss. Negative for hallucination s, substance abuse and suicidal ideas. The patient is nervous/anxious. The patient does not have insomnia. PHYSICAL EXAMINATION: Body mass index is 33.91 kg/m. Vitals: 11/20/18 1145 BP: 130/80 Pulse: 64 Resp: 20 PainSc: 7 PainLoc: Back GENERAL: The patient [...] has no apparent deficits with short or intermediate memory. The cranial nerves appear grossly intact. [...] Hallicus Longus 5 5 Ankle Dorsiflexion 5 4+ Plantarflexion 5 5 REFLEX: RIGHT LEFT PATELLAR 2+ 2+ ACHILLES absent Absent MUSCULOSKELETAL : The patient localized the majority of the pain to the lumbar region. Ten derness with palpation localized to the left lumbar paraspinal muscles at approximate levels of L4-5 L5-S1 DATABASE: Lumbar x-rays from 10/26/2018 imaging was personally reviewed by me. Imaging demonstrates; status post posterior fusion of L2-S1 with bilateral iliac screw. Neuroforaminal narrowing most significant at L2-L3. ASSESSMENT: 1. Chronic left-sided low back pain with left-sided sciatica 2. Lumbar radiculopathy 3. History of lumbar fusion 4. Failed back surgical syndrome 5. Left leg weakness 6. Bilateral leg numbness 7. Parkinsonian tremor (HCC) PLAN: 1. Uziel Rea returns to the clinic today for continued evaluation and treatment of b ack pain. Overall Uziel Rea had a goodresponse to lumbar steroid injections completed in [facility]. He denies side effects to injection. We reviewed that the benefits from this treatment are time limited. We discussed he is ag ain a candidate for repeat conservative treatment with a Left L2-L3 injection. Uziel murphy was advised that steroid injections are considered a temporary treatment given with th e goal of reducing symptoms. We discussed that the injection will not fix or cure the underl herb cause of the pain. The goal of the steroid injection is to minimize swelling and infla mmation that may be causing symptoms of pain. Uziel Rea was advised that on average a n injection may offer 4-6 months of reduced pain, with 4 months being the average. Steroid i njections, if needed, may be repeated up to three times yearly. Uziel Rea will have a left L2-L3 TFESI completed under fluoroscopy with Dr. Melissa ruiz. Uziel Rea was instructed to keep a detailed pain diary of the response to treatment and will return the pain diary to our office 2 weeks after the procedure. 2. In review of his past response to injection, we will anticipate needing to repeat inject ions in approximately 4 months, Uziel Rea will be scheduled to return to the clinic a round this time. 3. Uziel Rea was encouraged to continue his evaluation with neurosurgery in regard t o his post surgical healing and use of bone growth stimulator. 4. Uziel Reashould continue with at home exercises. Uziel Rea has routinely had substantial, long lasting, reduction in pain and improve d function with prior left L2-3 TFESI which will be repeated. He also has some weakness and pain that may be associated with left L5 radiculopathy. If in the future he fails to respo nse to left L2-3 TFESI we may consider left L5-S1 TFESI. Thank you for allowing me to be involved in the care of your patient. If you have any ques tions regarding the care of your patient please don't hesitate to call. Approximately 25 minutes was spent face to face with Uziel Rea, over half of which w as spent formulating and discussing their medical treatment plan. I, Logan Soto MD personally performed the services described in this documentation, as scribed by in my presence, Petra Prater RN and are both accurate and complete. Logan Soto MD - 11/20/2018 CC: Sherie Vela PA-C documented in this [...] of skin sensation | + + | Parkinsonian tremor (HCC) Paralysis agitans | + + documented in this encounter
--- OUTSIDE RECORDS SUMMARY | ~2019-09-09 | XMS | Encounter Summary ---
Demographics + + + | Address | [address] | | | [place] [address] | + + + | Home Phone | | + + + | Preferred Language | Unknown | + + + | Marital Status | | + + + | Confucianism Affiliation | Unknown | + + + | Race | Unknown | + + + | Ethnic Group | Unknown | + + + Author + + + | Author | [facility] | | | and [place]ana | + + + | Organization | [facility] | | | and [place] | [...] [place], [place] | | | | | [address] | | + + + + + | Mao Rea | ECON | Unknown | | + + + + + | Meredith Rea | ECON | Unknown | | + + + + + | Iqra Medina | ECON | [address] | | | | | [place], [place] | | | | | [address] | | + + + + + | Maldonado Rea | ECON | Unknown | | + + + + + Care Team Providers + +------+ + | Care Control Equipment Electrician Name | Role | Phone | + +------+ + | Brandon Juarez MD | PCP | | + +------+ + Encounter Details +--------+ + + + + | Date | Type | Department | Care Team | Description | +--------+ + + + + | 10/21/ | [facility] | [facility] | Koby George MD | S/P lumbar fusion | | 2014 | Encounter | MED CTR XRAY [address] | [address] | | | | | [address] | [place] [address] | | | | | [place] [address] | [phone] | | | | | [phone] | | | +--------+ + + + [...] [place] | | | | | | [address] | | | | | | | | +--------+---------+ + + + documented as of this encounter Procedures + +--------+ + + + | Procedure Name | Priori | Date/Time | Associated Diagnosis | Comments | | | ty | | | | + +--------+ + + + | XR LUMBAR SPINE 2 OR | Routin | 10/21/2015 | S/P lumbar fusion | Results for this | | 3 VW | e | 9:13 AM | | procedure are in the [...] ST. | [address] | [place], [place] | [phone] | | [facility] | | [address] | | | - IMAGING | | | | + + + + + documented in this encounter Visit Diagnoses + + | Diagnosis | + + | S/P lumbar fusion Arthrodesis status | + + documented in this encounter"
--- OUTSIDE RECORDS SUMMARY | ~2019-09-09 | XMS | Encounter Summary ---
Demographics + + + | Address | [address] | | | [place] [address] | + + + | Home Phone | | + + + | Preferred Language | Unknown | + + + | Marital Status | | + + + | Temple Affiliation | Unknown | + + + | Race | Unknown | + + + | Ethnic Group | Unknown | + + + Author + + + | Author | [facility] | | | and [place] | + + + | Organization | [facility] | | | and [...] [place], [place] | | | | | [address] | | + + + + + | Mao Rea | ECON | Unknown | | + + + + + | Meredith Rea | ECON | Unknown | | + + + + + | Iqra Medina | ECON | [address] | | | | | [place], [place] | | | | | [address] | | + + + + + | Maldonado Rea | ECON | Unknown | | + + + + + Care Team Providers + +------+ + | Care Wirer Name | Role | Phone | + [...] + + | 02/07/ | [facility]azarus, | Probable Idiopathic | | 2019 | Visit | NEUROLOGY [place] | MD Shavon CARCAMO | Parkinson's disease | | | | [address], | [place] [address] | (HCC) (Primary Dx); | | | | [address] [place] | [place] | 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 [facility] NEUROLOGY FOLLOW UP NOTE Primary Care [...] for history of major depression ([place] [facility]). I discussed with the patie nt and [...] therapy is helpful. I referred him to [employer] for Parkinson's motor symptoms. I also [...] (SINEMET) 25-100 mg pe r tablet 2. USP current use of atypical antipsychotic medication 3. [...] daily. 3. Continue physical therapy for gait. [employer] boxing also introduced. 4. Continue cognitive therapy [...] AND NEUROLOGY HISTORY: [facility] 73 y.o.RHD malewith history of major depression treated chronica lly with atypical antipsychotics and lithium, chronic immunomodulation for RA, LEANDRO, COPD, wh o was referred to me by DOM Dennis-Cfor evaluation of Parkinson's disease. [facility] also [facility] for LEANDRO and RBD. 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 Sma ll amount of REM without atonia was noted. 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 No PLMS noted. Sleep fragmentation p rimarily associated with sleep related breathing disorder. PAP Titration - 03/09/18 - [facility] Impression: The patient had CPAP on all [...] is oriented to person, place, and time. Uxossw-fhav-eahqbz test: mild bila teral tremor. Neurologic Exam [...] the right. No shuffling or festination.) Coordination Nkscyz-mnhh-qnblcm test: mild bilateral tremor. Tremor Resting tremor: [...] Dysability: 0 34. Dyskinesia Pain: 0 35. Souvenir And Novelty Maker Dystonia: 1 36. 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
--- OUTSIDE RECORDS SUMMARY | ~2019-09-09 | XMS | Encounter Summary ---
Demographics + + + | Address | [address] | | | [place] [address] | + + + | Home Phone [...] + + | Author | [facility] | | | and [place] | + + + | Organization | [facility] | | | and [place] | [...] [place], [place] | | | | | [address] | | + + + + + | Mao eRa | ECON | Unknown | | + + + + + | Meredith Rea | ECON | Unknown | | + + + + + | Iqra Meidna | ECON | [address] | | | | | [place], [place] | | | | | [address] | | + + + + + | Maldonado Rea | ECON | Unknown | | + + + + + Care Team Providers + +------+ + | Care Nursing Care Attendant Name | Role | Phone | + +------+ + | Sherie Vela PA-C | PCP | | + +------+ + Reason for Visit + + + | Reason | Comments | + + + | Medication Refill | | + + + Encounter Details +--------+--------+ + + + | Date | Type | Department | Care Team | Description | +--------+--------+ + + + | 07/06/ | Refill | [facility] | Koby George MD | Medication Refill | | 2017 | | NEUROSURGERY [address] | [address] | | | | | [address] | [place] [address] | | | | | [place] | [phone] | | | | | [address] | | | | | | [phone] | | | +--------+--------+ + + + [...] [place] | | | | | | [address] | | | | | | | | +--------+---------+ + + + documented as of this encounter Visit Diagnoses + + | Diagnosis | + + | S/P lumbar fusion Arthrodesis status | + + documented in this encounter"
--- OUTSIDE RECORDS SUMMARY | ~2019-09-09 | XMS | Encounter Summary ---
Demographics + + + | Address | [address] | | | [place] [address] | + + + | Home Phone [...] Author | [facility] | | | and Carlosana | + + + | Organization | [facility] | | | and Carlosana [...] [place], [place] | | | | | [address] | | + + + + + | Mao Rea | ECON | Unknown | | + + + + + | Meredith Rea | ECON | Unknown | | + + + + + | Iqra Medina | ECON | [address] | | | | | [place], [place] | | | | | [address] | | + + + + + | Maldonado Rea | ECON | Unknown | | + + + + + Care Team Providers + +------+ + | Care Stocklayer Name | Role | Phone | + [...] + + | 07/17/ | Office | [facility] | Logan Soto, | Chronic left-sided | | 2018 | Visit | PHYSIATRY [address] | [address] | low back pain with | | | | [place], | [place], [place] | left-sided sciatica | | | | [place] [address] | [address] | (Primary Dx); Lumbar | | | | [phone] | | radiculopathy; | | | | [...] disease | | | | | | ([facility]); Parkinsonian | | | | | | tremor ([facility]) | +--------+---------+ + + + Social History [...] injection will be performed a t [facility]. Please take note [...] of the procedure you must provide a intermodal owner operator truck driver to take you home. For all procedur es it is recommended that someone else drive you home. documented in this encounter Progress Notes Logan Soto MD - 07/17/2018 10:20 AM PDTFormatting of this note might be different fro m the original. Logan Soto MD [address] [facility], [address] [place], [place] [address] FAX: PHYSICAL MEDICINE AND REHABILITATION H&P CHIEF COMPLAINT: Chief Complaint Patient presents with Back Pain HISTORY OF PRESENT ILLNESS: Uziel Rea is a 73 y.o. male being seen today in follow-up for complaints of back raj n and to review response to interventional injections. Uziel Rea was last seen on 02/28/18. Previously it [...] tablet Take by mouth 2 times daily. Huguenot-3 Fatty Acids (FISH OIL) 1200 MG CAPS [...] has no apparent deficits with short or group home memory. The cranial nerves appear grossly intact. [...] Extension 5 5 Finger Abduction 5 5 Printing Engineer Strength 5 5 Hip Flexion 5 5 [...] 2019 | Visit | | [address] | | | | | | [place] | | | | | | [address] | | | | | | | [...]
--- OUTSIDE RECORDS SUMMARY | ~2019-09-09 | XMS | Encounter Summary ---
Demographics + + + | Address | [address] | | | [place] [address] | + + + | Home Phone | | + + + | Preferred Language | Unknown | + + + | Marital Status | | + + + | Congregational Affiliation | Unknown | + + + | Race | Unknown | + + + | Ethnic Group | Unknown | + + + Author + + + | Author | [facility] | | | and Carlosana | + + + | Organization | [facility] | | | and Carlosana [...] [place], [place] | | | | | [address] | | + + + + + | Mao Rea | ECON | Unknown | | + + + + + | Meredith Rea | ECON | Unknown | | + + + + + | Iqra Medina | ECON | [address] | | | | | [place], [place] | | | | | [address] | | + + + + + | Maldonado Rea | ECON | Unknown | | + + + + + Care Team Providers + +------+ + | Care Child Study Team Director Name | Role | Phone | + +------+ + | Brandon Juarez MD | PCP | | + +------+ + Encounter Details +--------+ + + + + | Date | Type | Department | Care Team | Description | +--------+ + + + + | 03/07/ | Hospital | [facility] | Ender Mora | Flat back syndrome; | | 2014 | Encounter | MED CTR XRAY [address] | [address] | Lumbar stenosis with | | | | [place] | [address] | neurogenic | | | | [place] [address] | [place], [place] | claudication; S/P | | | | [phone] | [address] | lumbar fusion | | | | | [...] | | Take 1-2 tablets by | 90 | 0 | 03/07/20 | | | HYDROcodone-acetamin | mouth every 4 hours | tablet | | 15 | 5 | | ophen (NORCO) 5-325 | as needed for Pain. | | | | | | mg per | | | | | | | tabletIndications: | | | | | | | [...] | SODIUM IJ | | | | | 7 | + [...] [place] | | | | | | [address] | | | | | | | | +--------+---------+ + + + documented as of this encounter Procedures + +--------+ + + + | Procedure Name | Priori | Date/Time | Associated Diagnosis | Comments | | | ty | | | | + +--------+ + + + | XR LUMBAR SPINE 2 OR | Routin | 03/07/2015 | Flat back syndrome | Results for this | | 3 VW | e | 12:27 PM | Lumbar stenosis | procedure are in the | | | | PDT | with neurogenic | results section. | | | | | claudication S/P | | | | | | lumbar fusion | | + +--------+ + + + documented in this encounter Results XR Lumbar Spine 2 or 3 Vw (03/07/2015 12:27 PM PDT) + + | Specimen | + + | | + + + + + | Narrative | Performed At | + + + | XR LUMBAR SPINE 2 OR 3 VW 03/07/2015 12:27 PM HISTORY: Postop. | [facility] | | COMPARISON: Multiple priors. FINDINGS: Again seen is stable | [facility] | | hardware for posterior fusion from L2 through L5 with interbody | [facility] | | hardware at these levels. Stable [...] interbody hardware at L3-4 into the superior plate of L4. | | | Dictated and Signed by: Sen Polanco MD Electronically signed: | | | 03/07/2015 1:23 PM | | + + + + + | Procedure Note | + + | Alexis, Rad Results In - 03/07/2015 1:26 PM PDT XR LUMBAR SPINE 2 OR 3 VW 03/07/2015 | | 12:27 PMHISTORY: Postop.COMPARISON: Multiple priors.FINDINGS:Again seen is stable | | hardware for posterior fusion from L2 through L5 withinterbody hardware at these levels. | | Stable moderate subsidence is observed alongthe superior endplate of L4. There is | | stable mild retrolisthesis of L2 over L3.Stable mild anterolisthesis of L4 over L5 | | persists. Mild to moderate spondylosisis observed. There is diffuse osteopenia. | | Vertebral body height are preservedwith no evidence for compression fractures. Moderate | | disc narrowing is at L2-3.Multilevel facet sclerosis and hypertrophy are present. | | Visualized ribs andpelvic osseous structures show no acute findings. There is mild | | lumbarspondylosis. A clip is noted in the lower abdomen.IMPRESSION -Stable posterior | | fusion from L2 through L5 with moderate subsidence of theinterbody hardware at L3-4 into | | the superior plate of L4.Dictated and Signed by: Sen Polanco MD Electronically | | signed: 03/07/2015 1:23 PM | |Multilevel facet sclerosis and hypertrophy are present. Visualized ribs and | |pelvic osseous structures show no acute findings. There is mild lumbar | |spondylosis. A clip is noted in the lower abdomen. | | | |IMPRESSION - | |Stable posterior fusion from L2 through L5 with moderate subsidence of the | |interbody hardware at L3-4 into the superior plate of L4. | | | |Dictated and Signed by: Sen Polanco MD | | Electronically signed: 03/07/2015 1:23 PM | + + + + + + + | Performing | Address | City/State/Zipcode | Phone Number | | Organization | | | | + + + + + | [facility] | [address] | [place] | [phone] | | [facility] | | [address] | | | - IMAGING | | | | + + + + + documented in this encounter Visit Diagnoses + + | Diagnosis | + + | Flat back syndrome Other lordosis (acquired) | + + | Lumbar stenosis with neurogenic claudication Spinal stenosis, lumbar region, with | | neurogenic claudication | + + | S/P lumbar fusion Arthrodesis status | + + documented in this encounter"
--- OUTSIDE RECORDS SUMMARY | ~2019-09-09 | XMS | Encounter Summary ---
Demographics + + + | Address | [address] | | | [place] [address] | + + + | Home Phone | | + + + | Preferred Language | Unknown | + + + | Marital Status | | + + + | Pentecostalism Affiliation | Unknown | + + + | Race | Unknown | + + + | Ethnic Group | Unknown | + + + Author + + + | Author | [facility] | | | and Carlosana | + + + | Organization | [facility] | | | and Carlosana [...] [place], [place] | | | | | [address] | | + + + + + | Mao Rea | ECON | Unknown | | + + + + + | Meredith Rea | ECON | Unknown | | + + + + + | Iqra Medina | ECON | [address] | | | | | [place], [place] | | | | | [address] | | + + + + + | Maldonado Rea | ECON | Unknown | | + + + + + Care Team Providers + +------+ + | Care Physician Obstetrician Name | Role | Phone | + +------+ + | Sherie Vela PA-C | PCP | | + +------+ + Encounter Details +--------+ + + + + | Date | Type | Department | Care Team | Description | +--------+ + + + + | 05/29/ | Orders Only | [facility] | Provider, | | | 2018 | | SYSTEM GENERIC OP | MD Hermin[address] | | | | | CONVERSION BEKAH COVARRUBIAS | [address] | | | | | [address] [place] [place] | [place] [address] | | | | | [address] | | | | | | [phone] | | | +--------+ + + + [...] [place] | | | | | | [id number] | | | | | | | | +--------+---------+ + + + documented as of this encounter Visit Diagnoses Not on filedocumented in this encounter"
--- OUTSIDE RECORDS SUMMARY | ~2019-09-09 | XMS | Encounter Summary ---
Demographics + + + | Address | [address] | | | [place] [address] | + + + | Home Phone | | + + + | Preferred Language | Unknown | + + + | Marital Status | | + + + | Taoism Affiliation | Unknown | + + + | Race | Unknown | + + + | Ethnic Group | Unknown | + + + Author + + + | Author | [facility] | | | and Carlosana | + + + | Organization | [facility] | | | and Carlosana [...] [place], [place] | | | | | [address] | | + + + + + | Mao Rea | ECON | Unknown | | + + + + + | Meredith Rea | ECON | Unknown | | + + + + + | Iqra Medina | ECON | [address] | | | | | [place], [place] | | | | | [address] | | + + + + + | Maldonado Rea | ECON | Unknown | | + + + + + Care Team Providers + +------+ + | Care Film Reproducer Name | Role | Phone | + +------+ + | Brandon Juarez MD | PCP | | + +------+ + Encounter Details +--------+ + + + + | Date | Type | Department | Care Team | Description | +--------+ + + + + | 08/07/ | Abstract | [facility] | Koby George MD | Arthritis (Primary | | 2014 | | NEUROSURGERY [address] | [address] | Dx); Cancer (HCC); | | | | [address] | [place] [address] | Anxiety; Hypothyroid | | | | [place] | [phone] |Hypothyroid | | | | [address] | | | | | | [phone] | | | +--------+ + + + [...] [place] | | | | | | [address] | | | | | | | | +--------+---------+ + + + documented as of this encounter Visit Diagnoses + + | Diagnosis | + + | Arthritis - Primary Arthropathy, unspecified, site unspecified | + + | Cancer (HCC) Other malignant neoplasm without specification of site | + + | Anxiety Anxiety state, unspecified | + + | Hypothyroid Unspecified hypothyroidism | + + documented in this encounter"
--- OUTSIDE RECORDS SUMMARY | ~2019-09-09 | XMS | Encounter Summary ---
Demographics + + + | Address | [address] | | | [place] [address] | + + + | Home Phone | | + + + | Preferred Language | Unknown | + + + | Marital Status | | + + + | Nondenominational Affiliation | Unknown | + + + | Race | Unknown | + + + | Ethnic Group | Unknown | + + + Author + + + | Author | [facility] | | | and Carlosana | + + + | Organization | [facility] | | [...] [place], [place] | | | | | [address] | | + + + + + | Mao Rea | ECON | Unknown | | + + + + + | Meredith Rea | ECON | Unknown | | + + + + + | Iqra Medina | ECON | [address] | | | | | [place], [place] | | | | | [address] | | + + + + + | Maldonado Rea | ECON | Unknown | | + + + + + Care Team Providers + +------+ + | Care Ruling Machine Feeder Name | Role | Phone | + [...] + + + | Closed | | Diagnostic | Diagnoses | West, | [address] ST | | | | Radiology | S/P lumbar | Ender | DARRYL | | | | | fusion | VIRY Ramos [facility] | | | | | Lumbar | [address] | [address] | | | | | radiculopath | [address] | [address]VE | | | | | y [address] | [address] | [place], [place] | | | | | stenosis of | [place], | [address] | | | | | lumbar | [place] [address] | Phone: | | | | | region | Phone: | [phone] | | | | | Spondylolist | [phone] | Fax: | | | | | hesis of | Fax: | [phone] | | | | | lumbar | [phone] | | | | | | region | | | | | | | Degenerative | | | | | | | disc | | | | | | | disease, | | | | | | | lumbar | | | | | | | Procedures | | | | | | | CT Lumbar | | | | | | | Spine wo | | | | | | | Contrast | | | +--------+--------+ + + + + Reason for Visit + + + | Reason | Comments | + + + | Follow-up | Back pain | + + + Encounter Details +--------+---------+ + + + | Date | Type | Department | Care Team | Description | +--------+---------+ + + + | 10/19/ | Office | [facility] | Morgan Ender | S/P lumbar fusion | | 2016 | Visit | NEUROSURGERY [address] | [address] | (Primary Dx); Lumbar | | | | [address] | [address] | radiculopathy; | | | | [place], [place] | [place] | Foraminal stenosis | | | | [address] | [address] | of lumbar region; | | | | [phone] | | 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; | | | | | | 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, lumbar | +--------+---------+ + + + Social [...] + + + | Blood Pressure | 143/89 | 10/19/2016 8:39 AM | | | | | PST | | + + + + + | Pulse | 56 | 10/19/2016 8:39 AM | | | | | PST [...] + + + + | Weight | 98 kg (216 lb) | 10/19/2016 8:39 AM | | | | | PST | | + + + + + | Height | 172.7 cm (5' 8") | 10/19/2016 8:39 AM | | | | | PST | | + + + + + | Body Mass Index | 32.84 | 10/19/2016 8:39 AM | | | | | PST [...] Instructions Patient Instructions Ender Mora PA-C - 10/19/2016 9:32 AM PSTToday we decided t o obtain CT scan of your lumbar spine as well as x-rays. After these tests have been comple david I would like you to return to the office to review the results and make further recommen dations. documented in this encounter Progress Notes Ender Mora PA-C - 10/19/2016 9:33 AM PSTFormatting of this note might be differ ent from the original. Ender Mora PA-C [address] [facility], [address] [place] [address] FAX: NEUROSURGERY FOLLOW-UP CHIEF COMPLAINT: Chief Complaint Patient presents with Follow-up Back pain HISTORY OF PRESENT ILLNESS: The patient is a 71 y.o. male that had a lumbar fusion for spo ndylolisthesis around December 2014. He returns and overall is doing poorly. The patient c omplains of increased problems with left leg pain. He has pain radiating down his posterior thigh and into his winters and lateral foot on the left side. No right-sided symptoms. He em s some chronic numbness in his lateral left leg. He has bilateral foot numbness which is al so been ongoing. He has followed with physiatry and recently had left sided epidural steroi d injection. Good diagnostic improvement for about 4 days but no therapeutic improvement of his symptoms. He is here to discuss his options. He would like to consider further surger y if that would be reasonable. He presents today with his . He has a history of rheuma toid arthritis. He has an appointment with pain medicine provider. There is been some disc ussion regarding possible spinal cord stimulator.. CURRENT MEDICATIONS: Current Outpatient Prescriptions Medication Sig Dispense Refill Ascorbic Acid (VITAMIN C WITH TOM HIPS) 500 MG tablet Take 500 mg by mouth Daily. Calcium Carbonate-Vit D-Min (CALCIUM 1200 PO) CHEW: Daily Cholecalciferol (VITAMIN D-3) 2000 units CAPS Take 2,000 Units by mouth 2 times daily. CVS FOLIC ACID PO TABS: 1 mg [...] needed. METHOTREXATE SODIUM IJ SOLN: As directed METHYLCOBALAMIN PO Take 1,000 mcg by mouth Daily. Multiple Vitamins-Minerals (A THRU Z ADVANCED) TABS Omeprazole Magnesium (CVS OMEPRAZOLE) 20.6 (20 BASE) MG CPDR Daily propranolol (INDERAL) 60 MG tablet Take 60 mg by mouth 3 times daily. tofacitinib (XELJANZ XR) 11 mg tablet Take 11 mg by mouth Daily. No current facility-administered medications for this visit. ALLERGIES: No Known Allergies SOCIAL HISTORY: The patient reports that he quit smoking about 35 years ago. His smoking use included Ciga rettes. He has a 40 pack-year smoking history. He has never used smokeless tobacco. He repor ts that he uses illicit drugs (Marijuana) about 14 times per week. He reports that he does n ot drink alcohol. INTERIM PHYSICAL EXAMINATION: Blood pressure 143/89, pulse 56, height 1.727 m (5' 8"), weight 97.977 kg (216 lb). Body ma ss index is 32.85 kg/(m^2). GENERAL: Uziel Rea is in no acute distress with unlabored respirations. SPINE: The patient s incision is well [...] s mall synovial cyst on the right ASSESSMENT: Encounter Diagnoses Name Primary? 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 The patient has progressive left leg symptoms. He w ould like further evaluation of this. We have ordered a CT scan of his lumbar spine as well as standing flexion and extension views. He will return to the office with an appointment with myself as well as with Dr. shabazz to review his images and make further recommendations. I then advised him to keep his appointment with a pain medicine clinic. ELECTRONICALLY SIGNED BY: Ender Mora PA-C, 10/19/2016 9:33 documented in this encounter Plan of Treatment +--------+---------+ + + + | Date | Type | Specialty | Care Team | Description | +--------+---------+ + + + | 12/07/ | Office | Neurology | Abundio Khanna MD | | | 2019 | Visit | | [address] | | | | | | [place] | | | | | | [id number] | | | | | | | | +--------+---------+ + + + + +---------+--------+ + + | Name | Type | Priori | Associated Diagnoses | Order Schedule | | | | ty | | | + +---------+--------+ + + | CT Lumbar Spine wo | Imaging | Routin | S/P lumbar fusion | Expected: | | Contrast | | e | Lumbar | 10/19/2016, Expires: | | | | | radiculopathy | 10/19/2017 | | | | | Foraminal stenosis | | | | | | of lumbar region | | | | | | 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 | | | | | | 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, lumbar | | + +---------+--------+ + + documented as of this encounter Visit Diagnoses + + | Diagnosis | + + | S/P lumbar fusion - Primary Arthrodesis status | + + | Lumbar [...] disc | + + documented in this encounter
--- OUTSIDE RECORDS SUMMARY | ~2019-09-09 | XMS | Encounter Summary ---
Demographics + + + | Address | [address] | | | [place] [address] | + + + | Home Phone | | + + + | Preferred Language | Unknown | + + + | Marital Status | | + + + | Confucianism Affiliation | Unknown | + + + | Race | Unknown | + + + | Ethnic Group | Unknown | + + + Author + + + | Author | [facility] | | | and Carlosana | + + + | Organization | [facility] | | | and [...] [place], [place] | | | | | [address] | | + + + + + | Mao Rea | ECON | Unknown | | + + + + + | Meredith Rea | ECON | Unknown | | + + + + + | Iqra Medina | ECON | [address] | | | | | [place], [place] | | | | | [address] | | + + + + + | Maldonado Rea | ECON | Unknown | | + + + + + Care Team Providers + +------+ + | Care Transport Company Manager Name | Role | Phone | + +------+ + | Brandon Juarez MD | PCP | | + +------+ + Encounter Details +--------+ + + + + | Date | Type | Department | Care Team | Description | +--------+ + + + + | 02/18/ | [facility] | [facility] | Koby George MD | Lumbar | | 2017 | Encounter | MED CTR XRAY [address] | [address] | radiculopathy; | | | | [place] | [place] [address] | Pseudoarthrosis of | | | | [place] [address] | [phone] | lumbar spine; | | | | [phone] | | Synovial cyst of | | | | | Christopher Alvarado MD | lumbar facet joint; | | | | | [address] | S/P lumbar fusion; | | | | | [place] | Flat back syndrome; | | | | | [address] | Degenerative disc | | | | [...] | 0 | | | | (NEURONTIN) 600 MG | 4 times daily. | | | | 7 [...] mouth | 240 mL | 3 | 02/27/20 | | | mL solution | 2 times daily. | | | [...] + + + +---------+ + + | Methotrexate, | Inject 0.9 mLs under | | 0 | | | | Anti-Rheumatic, | the skin Once a | | | | 7 | | (METHOTREXATE, PF, | week. | | | | | | [place]) | | | | | | + [...] + + +---------+ + + | oxyCODONE | Take 1-2 tablets by | 120 | 0 | 02/27/20 | | | (ROXICODONE) 5 mg | mouth every 4 hours | tablet | | 17 | 7 | | tablet | as needed for Pain. | | | | | + + + +---------+ + + | | Take 1 tablet by | | 0 | 01/25/20 | | | oxyCODONE-acetaminop | mouth every 4 hours | | | 17 | 7 | | hen (PERCOCET) | as needed. | | | | | | 10-325 mg per tablet | | | | [...] + + + +---------+ + + | tofacitinib | Take 11 mg by mouth | | 0 | | | | (XELJANZ XR) 11 mg | Daily. | | | | 7 | [...] [place] | | | | | | [address] | | | | | | | | +--------+---------+ + + + documented as of this encounter Procedures + +--------+ + + + | Procedure Name | Priori | Date/Time | Associated Diagnosis | Comments | | | ty | | | | + +--------+ + + + | XR CHEST PA AND | Routin | 02/18/2017 | Lumbar | Results for this | | LATERAL | e | 10:06 AM | radiculopathy | procedure are in [...] + documented in this encounter Results XR Chest PA and Lateral (02/18/2017 10:06 AM PDT) + + | Specimen | + + | | + + + + + | Narrative | Performed At | + + + | PA AND LATERAL CHEST 02/18/2017 10:06 AM CLINICAL HISTORY: | [facility] | | preoperative clearance COMPARISON: Chest radiographs October 2014 | [facility] | | FINDINGS: There is similar tortuosity of the thoracic aorta. The | [facility] | | cardiomediastinal silhouette and pulmonary vasculature are otherwise | - IMAGING | | unremarkable. There is persistent mild hazy reticular opacity in | | | the anterior left base, favoring epicardial fat and/or atelectasis | | | given the presence of gas filled bowel underlying the left | | | hemidiaphragm, which is slightly elevated. The lungs are clear | | | elsewhere, without pneumothorax or pleural effusion. Multilevel | | | thoracic spondylosis is present. The bones and soft tissues are | | | otherwise unremarkable. IMPRESSION - 1. NO EVIDENCE OF | | | ACTIVE DISEASE IN THE CHEST. Dictated and Signed by: Christian Andrea | | | Electronically signed: 02/18/2017 11:52 AM | | + + + + + | Procedure Note | + + | Alexis, Rad Results In - 02/18/2017 11:55 AM PDT PA AND LATERAL CHEST 02/18/2017 10:06 AM | | | | CLINICAL HISTORY: preoperative clearance | | | | COMPARISON: Chest radiographs October 2014 | | | | FINDINGS: There is similar tortuosity of the thoracic aorta. The | | cardiomediastinal silhouette and pulmonary vasculature are otherwise | | unremarkable. There is persistent mild hazy reticular opacity in the anterior | | left base, favoring epicardial fat and/or atelectasis given the presence of gas | | filled bowel underlying the left hemidiaphragm, which is slightly elevated. The | | lungs are clear elsewhere, without pneumothorax or pleural effusion. Multilevel | | thoracic spondylosis is present. The bones and soft tissues are otherwise | | unremarkable. | | | | IMPRESSION - | | | | 1. NO EVIDENCE OF ACTIVE DISEASE IN THE CHEST. | | | | Dictated and Signed by: Christian Andrea MD | | Electronically signed: 02/18/2017 11:52 AM | + + + + + + + | Performing | Address | City/State/Zipcode | Phone Number | | Organization | | | | + + + + + | [facility] | [address] | [place], [place] | [phone] | | [facility] | | [address] | | | - IMAGING | | [...]
--- OUTSIDE RECORDS SUMMARY | ~2019-09-09 | XMS | Encounter Summary ---
Demographics + + + | Address | [address] | | | [place] [address] | + + + | Home Phone | | + + + | Preferred Language | Unknown | + + + | Marital Status | | + + + | Presybeterian Affiliation | Unknown | + + + | Race | Unknown | + + + | Ethnic Group | Unknown | + + + Author + + + | Author | [facility] | | | and [place] | + + + | Organization | [facility] | | | and [...] [place], [place] | | | | | [address] | | + + + + + | Mao Rea | ECON | Unknown | | + + + + + | Meredith Rea | ECON | Unknown | | + + + + + | Iqra Medina | ECON | [address] | | | | | [place], [place] | | | | | [address] | | + + + + + | Maldonado Rea | ECON | Unknown | | + + + + + Care Team Providers + +------+ + | Care Mobile Development Manager Name | Role | Phone | [...] | | [address] | [place] [address] | instructions ) | | | | [place], [place] | [phone] | | | | | [address] | | | | | | [phone] | | | +--------+ + + + [...] [place] | | | | | | [address] | | | | | | | | +--------+---------+ + + + documented as of this encounter Visit Diagnoses Not on filedocumented in this encounter"
--- OUTSIDE RECORDS SUMMARY | ~2019-09-09 | XMS | Encounter Summary ---
Demographics + + + | Address | [address] | | | [place] [address] | + + + | Home Phone | | + + + | Preferred Language | Unknown | + + + | Marital Status | | + + + | Catholic Affiliation | Unknown | + + + | Race | Unknown | + + + | Ethnic Group | Unknown | + + + Author + + + | Author | [facility] | | | and [place] | + + + | Organization | [facility] | | [...] [place], [place] | | | | | [address] | | + + + + + | Mao Rea | ECON | Unknown | | + + + + + | Meredith Rea | ECON | Unknown | | + + + + + | Iqra Medina | ECON | [address] | | | | | [place], [place] | | | | | [address] | | + + + + + | Maldonado Rea | ECON | Unknown | | + + + + + Care Team Providers + +------+ + | Care Floor Covering Layer Name | Role | Phone | + +------+ + | Brandon uJarez MD | PCP | | + +------+ + Reason for Visit +--------+ + | Reason | Comments | +--------+ + | Other | reschedule appointment time | +--------+ + Encounter Details +--------+ + + + + | Date | Type | Department | Care Team | Description | +--------+ + + + + | 03/05/ | Telephone | [facility] | Koby George MD | Other (reschedule | | 2015 | | NEUROSURGERY [address] | [address] | appointment time) | | | | [address] | [place] [address] | | | | | [place] | [phone] | | | | | [address] | | | | | | [phone] | | | +--------+ + + + [...] [place] | | | | | | [address] | | | | | | | | +--------+---------+ + + + documented as of this encounter Visit Diagnoses Not on filedocumented in this encounter"
--- OUTSIDE RECORDS SUMMARY | ~2019-09-09 | XMS | Encounter Summary ---
Demographics + + + | Address | [address] | | | [place] [address] | + + + | Home Phone | | + + + | Preferred Language | Unknown | + + + | Marital Status | | + + + | Roman Catholic Affiliation | Unknown | + + + | Race | Unknown | + + + | Ethnic Group | Unknown | + + + Author + + + | Author | [facility] | | | and [place] | + + + | Organization | [facility] | [...] [place], [place] | | | | | [address] | | + + + + + | Mao Rea | ECON | Unknown | | + + + + + | Meredith Rea | ECON | Unknown | | + + + + + | Iqra Medina | ECON | [address] | | | | | [place], [place] | | | | | [address] | | + + + + + | Maldonado Rea | ECON | Unknown | | + + + + + Care Team Providers + +------+ + | Care Experimental Psychologist Name | Role | Phone | + +------+ + | Sherie Vela PA-C | PCP | | + +------+ + Encounter Details +--------+ + + + + | Date | Type | Department | Care Team | Description | +--------+ + + + + | 02/21/ | Imaging | [facility] | Provider, | | | 2018 | Exam | [facility] EXTER[facility] | MD Herminio [address] | | | | | IMAGING | [place] | | | | | [phone] | [place] [address] | | +--------+ + + + + [...] [place] | | | | | | [address] | | | | | | | | +--------+---------+ + + + documented as of this encounter Procedures + +--------+ + + + | Procedure Name | Priori | Date/Time | Associated Diagnosis | Comments | | | ty | | | | + +--------+ + + + | XR LUMBAR SPINE 2 OR | Routin | 02/14/2018 | | Results for this | | 3 VW | e | 1:25 PM | | procedure are in the | | | | PDT | | results section. | + +--------+ + + + documented in this encounter Results XR Lumbar Spine 2 or 3 Vw (02/14/2018 1:25 PM PDT) + + | Specimen | [...]
--- OUTSIDE RECORDS SUMMARY | ~2019-09-09 | XMS | Encounter Summary ---
Demographics + + + | Address | [address] | | | [place] [address] | + + + | Home Phone | | + + + | Preferred Language | Unknown | + + + | Marital Status | | + + + | Episcopal Affiliation | Unknown | + + + | Race | Unknown | + + + | Ethnic Group | Unknown | + + + Author + + + | Author | [facility] | | | and [place] | + + + | Organization | [facility] | | | and [place] | [...] [place], [place] | | | | | [address] | | + + + + + | Mao Rea | ECON | Unknown | | + + + + + | Meredith Rea | ECON | Unknown | | + + + + + | Iqra Medina | ECON | [address] | | | | | [place], [place] | | | | | [address] | | + + + + + | Maldonado Rea | ECON | Unknown | | + + + + + Care Team Providers + +------+ + | Care Welfare Worker Name | Role | Phone | + +------+ + | Brandon Juarez MD | PCP | | + +------+ + Encounter Details +--------+ + + + + | Date | Type | Department | Care Team | Description | +--------+ + + + + | 01/07/ | [facility] | [facility] | Ender Mora | S/P lumbar fusion | | 2014 | Encounter | MED CTR XRAY [address] | [address] | | | | | [place] | [address] | | | | | [place] [address] | [place], [place] | | | | | [phone] | [address] | | | | | | | [...] tablets by | 120 | 0 | 01/08/20 | | | HYDROcodone-acetamin | mouth every [...] [place] | | | | | | [address] | | | | | | | | +--------+---------+ + + + documented as of this encounter Procedures + +--------+ + + + | Procedure Name | Priori | Date/Time | Associated Diagnosis | Comments | | | ty | | | | + +--------+ + + + | XR LUMBAR SPINE 2 OR | Routin | 01/07/2015 | S/P lumbar fusion | Results for this | | 3 VW | e | 11:19 AM | | procedure are in the | | | | PDT | | results section. | + +--------+ + + + documented in this encounter Results XR Lumbar Spine 2 or 3 Vw (01/07/2015 11:19 AM PDT) + + | Specimen | + + | | + + + + + | Narrative | Performed At | + + + | XR LUMBAR SPINE 2 OR 3 VW 01/07/2015 11:19 AM HISTORY: | [facility] | | Postoperative. COMPARISON: 12/03/2014. FINDINGS: There is | [facility] | | stable hardware for posterior fusion from L2 through L5 with interbody | [facility] | | hardware at these levels. Stable moderate subsidence is observed | - IMAGING | | along the superior endplate of L4. There is stable mild | | | retrolisthesis of L2 over L3. Mild to moderate spondylosis is | | | observed. There is diffuse osteopenia. Vertebral body height are | | | preserved with no evidence for compression fractures. Moderate disc | | | narrowing is at L2-3. Multilevel facet sclerosis and hypertrophy are | | | present. Visualized ribs and pelvic osseous structures show no acute | | | findings. There is mild lumbar spondylosis. A clip is noted in the | | | lower abdomen. IMPRESSION - Stable posterior fusion from L2 | | | through L5 with moderate subsidence of the interbody hardware at L3-4 | | | into the superior plate of L4. Dictated and Signed by: Sen | | | MD Collin Electronically signed: 01/07/2015 11:37 AM | | + + + + + | Procedure Note | + + | Alexis, Sen Results In - 01/07/2015 11:40 AM PDT XR LUMBAR SPINE 2 OR 3 VW 01/07/2015 | | 11:19 AMHISTORY: Postoperative.COMPARISON: 12/03/2014.FINDINGS:There is stable hardware | | for posterior fusion from L2 through L5 with interbodyhardware at these levels. Stable | | moderate subsidence is observed along thesuperior endplate of L4. There is stable mild | | retrolisthesis of L2 over L3. Mildto moderate spondylosis is observed. There is diffuse | | osteopenia. Vertebral bodyheight are preserved with no evidence for compression | | fractures. Moderate discnarrowing is at L2-3. Multilevel facet sclerosis and hypertrophy | | are present.Visualized ribs and pelvic osseous structures show no acute findings. There | | ismild lumbar spondylosis. A clip is noted in the lower abdomen.IMPRESSION -Stable | | posterior fusion from L2 through L5 with moderate subsidence of theinterbody hardware at | | L3-4 into the superior plate of L4.Dictated and Signed by: Sen Polanco MD | | Electronically signed: 01/07/2015 11:37 AM | |narrowing is at L2-3. Multilevel facet sclerosis and hypertrophy are present. | |Visualized ribs and pelvic osseous structures show no acute findings. There is | |mild lumbar spondylosis. A clip is noted in the lower abdomen. | | | |IMPRESSION - | |Stable posterior fusion from L2 through L5 with moderate subsidence of the | |interbody hardware at L3-4 into the superior plate of L4. | | | |Dictated and Signed by: Sen Polanco MD | | Electronically signed: 01/07/2015 11:37 AM | + + + + + + + | Performing | Address | City[facility] | Phone Number | | Organization | | | | + + + + + | [address] | [address] | [place] | [phone] | | [facility] | | [address] | | | - IMAGING | | | | + + + + + documented in this encounter Visit Diagnoses + + | Diagnosis | + + | S/P lumbar fusion Arthrodesis status | + + documented in this encounter"
--- OUTSIDE RECORDS SUMMARY | ~2019-09-09 | XMS | Encounter Summary ---
Demographics + + + | Address | [address] | | | [place] [address] | + + + | Home Phone [...] | + + + | Organization | [facility] | | | and [place]ana [...] [place], [place] | | | | | [address] | | + + + + + | Mao Rea | ECON | Unknown | | + + + + + | Meredith Rea | ECON | Unknown | | + + + + + | Iqra Medina | ECON | [address] | | | | | [place], [place] | | | | | [address] | | + + + + + | Maldonado Rea | ECON | Unknown | | + + + + + Care Team Providers + +------+ + | Care Media Services Director Name | Role | Phone | + +------+ + | Brandon Juarez MD | PCP | | + +------+ + Reason for Visit +--------+ + | Reason | Comments | +--------+ + | Other | | +--------+ + Encounter Details +--------+ + + + + | Date | Type | Department | Care Team | Description | +--------+ + + + + | 12/12/ | Telephone | [facility] | Koby George MD | Other | | 2015 | | NEUROSURGERY [address] | [address] | | | | | [address] | [place] [address] | | | | | [place] | [phone] | | | | | [address] | | | | | | [phone] | | | +--------+ + + + [...] [place] | | | | | | [address] | | | | | | | | +--------+---------+ + + + documented as of this encounter Visit Diagnoses Not on filedocumented in this encounter"
--- OUTSIDE RECORDS SUMMARY | ~2019-09-09 | XMS | Encounter Summary ---
Demographics + + + | Address | [address] | | | [place] [address] | + + + | Home Phone | | + + + | Preferred Language | Unknown | + + + | Marital Status | | + + + | Zoroastrianism Affiliation | Unknown | + + + | Race | Unknown | + + + | Ethnic Group | Unknown | + + + Author + + + | Author | [facility] | | | and [place] | + + + | Organization | [facility] | [...] [place], [place] | | | | | [address] | | + + + + + | Mao Rea | ECON | Unknown | | + + + + + | Meredith Rea | ECON | Unknown | | + + + + + | Iqra Medina | ECON | [address] | | | | | [place], [place] | | | | | [address] | | + + + + + | Maldonado Rea | ECON | Unknown | | + + + + + Care Team Providers + +------+ + | Care Research And Development Manager Name | Role | Phone | + +------+ + | Sherie Vela PA-C | PCP | | + +------+ + Reason for Visit + + + | Reason | Comments | + + + | Medication | | | Management | | + + + Encounter Details +--------+ + + + + | Date | Type | Department | Care Team | Description | +--------+ + + + + | 02/28/ | Telephone | [facility] | Jarvis Dawson, | Medication | | 2019 | | NEUROLOGY [place] | [address] [facility] | Management | | | | [address], | [place] [address] | | | | | [address] [place] | [place] | | | | | [place] [address] | [address] | | | | | [phone] | | | +--------+ + + + [...] Description | +--------+---------+ + + + | Office | Neurology | Abundio Khanna MD | | | 2019 | Visit | | [address] | | | | | | [place] | | | | | | [phone] | | | | | | | | +--------+---------+ + + + documented as of this encounter Visit Diagnoses Not on filedocumented in this encounter"
--- OUTSIDE RECORDS SUMMARY | ~2019-09-09 | XMS | Encounter Summary ---
Demographics + + + | Address | [address] | | | [place] [address] | + + + | Home Phone | | + + + | Preferred Language | Unknown | + + + | Marital Status | | + + + | Protestant Affiliation | Unknown | + + + | Race | Unknown | + + + | Ethnic Group | Unknown | + + + Author + + + | Author | [facility] | | | and [place] | + + + | Organization | [facility] | | | and [place] [...] [place], [place] | | | | | [address] | | + + + + + | Mao Rea | ECON | Unknown | | + + + + + | Meredith Rea | ECON | Unknown | | + + + + + | Iqra Medina | ECON | [address] | | | | | [place], [place] | | | | | [address] | | + + + + + | Maldonado Rea | ECON | Unknown | | + + + + + Care Team Providers + +------+ + | Care Pulp Operator Name | Role | Phone | + +------+ + | Brandon Juarez MD | PCP | | + +------+ + Encounter Details +--------+ + + + + | Date | Type | Department | Care Team | Description | +--------+ + + + + | 12/10/ | Episode | [facility] | Emily Padilla | | | 2017 | Changes | NEUROSURGERY [address] | S, Senior Hr Manager | | | | | [address] | | | | | | [place] | | | | | | [address] | | | | | | [phone] | | | +--------+ + + + [...] | 2020 | Visit | | [address] | | | | | | [place] | | | | | | [phone] | | | | | | | | +--------+---------+ + + + documented as of this encounter Visit Diagnoses Not on filedocumented in this encounter"
--- OUTSIDE RECORDS SUMMARY | ~2019-09-09 | XMS | Clinical Summary ---
Demographics + + + | Address | [address] | | | [place] [address] | + + + | Home Phone [...] + + | Author | [facility] | | | and [place] | + + + | Organization | [facility] | | | and [place] | [...] [place], [place] | | | | | [address] | | + + + + + | Mao Rea | ECON | Unknown | | + + + + + | Meredith Rea | ECON | Unknown | | + + + + + | Iqra Medina | ECON | [address] | | | | | [place], [place] | | | | | [address] | | + + + + + | Maldonado Rea | ECON | Unknown | | + + + + + Care Team Providers + +------+ + | Care Product/Device Technologist Name | Role | Phone | + +------+ + | Sherie Vela PA-C | PCP | | + +------+ + Allergies No Known Allergies Medications + +-----+ +---------+------+------+-------+ | Medication | Sig | Dispensed | Refills | Star | End | Statu | | | | | | t | Date | s | | | | | | Date | | | + +-----+ +---------+------+------+-------+ | Multiple | | | 0 | 08/1 | | Activ | | Vitamins-Minerals (A | | | | 6/20 | | e | | THRU Z ADVANCED) | | | | 11 | | | | TABS | | | | | | | + +-----+ +---------+------+------+-------+ +---+ + | | Additional | | | informationPatient | | | taking differently: | | | 1 tablet Oral DAILY, | | | Reported on | | | 08/03/2018 10:01 AM | +---+ + + + +--------+---+------+---+-------+ | Ascorbic Acid | Take 500 mg by mouth | | 0 | 07/01 | | Activ | | (VITAMIN C WITH TOM | Daily. | | | 02/17 | | e | | HIPS) 500 MG tablet | | | | 12 | | | + + +--------+---+------+---+-------+ | | Take 1 tablet by | | 0 | | | Activ | | glucosamine-chondroi | mouth Daily. | | | | | e | | tin | | | | | | | | (GLUCOSAMINE-CHONDRO | | | | | | | | ITIN DS) 500-400 MG | | | | | | | | tablet | | | | | | | + + +--------+---+------+---+-------+ | Cholecalciferol | Take 2,000 Units by | | 0 | | | Activ | | (VITAMIN D-3) 2000 | mouth Daily. | | | | | e | | units CAPS | | | | | | | + + +--------+---+------+---+-------+ | Misc Natural | Take 2 capsules by | | 0 | | | Activ | | Products (TURMERIC | mouth Daily. | | | | | e | | CURCUMIN) CAPS | | | | | | | + + +--------+---+------+---+-------+ | simvastatin | Take 40 mg by mouth | | 0 | 04/2 | | Activ | | (ZOCOR) 40 mg tablet | Daily. | | | 0/20 | | e | | | | | | 17 | | | + + +--------+---+------+---+-------+ | lithium 300 mg | Take 300 mg by mouth | | 0 | 04/1 | | Activ | | capsule | 3 times daily. | | | 0/20 | | e | | | | | | 17 | | | + + +--------+---+------+---+-------+ | cyanocobalamin | Take 1,000 mcg by | | 0 | | | Activ | | (VITAMIN B-12) 1000 | mouth Daily. | | | | | e | | MCG tablet | | | | | | | + + +--------+---+------+---+-------+ | leflunomide | Take 10 mg by mouth | | 0 | | | Activ | | (ARAVA) 10 mg tablet | Daily. | | | | | e | + + +--------+---+------+---+-------+ | methotrexate (PF) | Inject 1 mg into the | | 0 | | | Activ | | 25 mg/mL injection | muscle Once a week. | | | | | e | + + +--------+---+------+---+-------+ | levalbuterol | 2 puffs EVERY 4 TO 6 | | 0 | 02/0 | | Activ | | (XOPENEX HFA) 45 | HOURS NEEDED for | | | 1/20 | | e | | mcg/puff inhaler | Shortness of | | | 18 | | | | | Breath. | | | | | | + + +--------+---+------+---+-------+ | Calcium | Take 2 tablets by | | 0 | | | Activ | | Carb-Cholecalciferol | mouth Daily. | | | | | e | | (CALCIUM + D3) | | | | | | | | 600-800 MG-UNIT TABS | | | | | | | + + +--------+---+------+---+-------+ | fluticasone | Inhale 2 puffs into | | 0 | | | Activ | | (FLOVENT HFA) 110 | the lungs 2 times | | | | | e | | mcg/puff inhaler | daily. | | | | | | + + +--------+---+------+---+-------+ | gabapentin | Take 400 mg by mouth | | 0 | | | Activ | | (NEURONTIN) 400 mg | 2 times daily. | | | | | e | | capsule | | | | | | | + + +--------+---+------+---+-------+ | levothyroxine | Take 88 mcg by mouth | | 0 | | | Activ | | (SYNTHROID) 88 mcg | every morning | | | | | e | | tablet | (before breakfast). | | | | | | + + +--------+---+------+---+-------+ | l-methylfolate 7.5 | Take 7.5 mg by mouth | | 0 | | | Activ | | mg tablet | Daily. | | | | | e | + + +--------+---+------+---+-------+ | Melatonin 10 MG | Take 20 mg by mouth | | 0 | | | Activ | | TABS | nightly. | | | | | e | + + +--------+---+------+---+-------+ | VRAYLAR 4.5 MG | | | 0 | 12/0 | | Activ | | capsule | | | | 7/20 | | e | | | | | | 18 | | | + + +--------+---+------+---+-------+ | cariprazine | Vraylar 3 mg capsule | | 0 | | | Activ | | (VRAYLAR) 3 mg | | | | | | e | | capsule | | | | | | | + + +--------+---+------+---+-------+ | DULoxetine | duloxetine 60 mg | | 0 | | | Activ | | (CYMBALTA) [address] | capsule,delayed | | | | | e | | capsule | release | | | | | | + + +--------+---+------+---+-------+ | mycophenolate | mycophenolate | | 0 | | | Activ | | (CELLCEPT) 500 MG | mofetil 500 mg | | | | | e | | tablet | tablet | | | | | | + + +--------+---+------+---+-------+ | UNABLE TO FIND | methotrexate sodium | | 0 | | | Activ | | | 25 mg/mL injection | | | | | e | | | solution | | | | | | + + +--------+---+------+---+-------+ | omeprazole | omeprazole 20 mg | | 0 | | | Activ | | (PRILOSEC) 20 mg | capsule,delayed | | | | | e | | capsule | release | | | | | | + + +--------+---+------+---+-------+ | carbidopa-levodopa | Take 3 tablets by | 270 | 5 | 08/2 | | Activ | | (SINEMET) 25-100 mg | mouth 3 times daily. | tablet | | 06/19 | | e | | per | Take at 5 AM, 2 PM, | | | 19 | | | | tabletIndications: | and 8 PM | | | | | | | Parkinson's disease | | | | | | | | (HCC) | | | | | | | + + +--------+---+------+---+-------+ Active Problems + + + | Problem | Noted Date | + + + | Drug-induced constipation | 04/22/2019 | + + + | Parkinson's disease | 04/22/2019 | + + + | Reactive airways dysfunction syndrome | 04/22/2019 | + + + | History of malignant neoplasm of colon | 04/22/2019 | + + + | Anxiety disorder | 07/12/2018 | + + + | Bipolar disorder | 07/12/2018 | + + + | Severe episode of recurrent major depressive disorder | 07/12/2018 | + + + | Polycythemia, secondary | 07/12/2018 | + + + + + | Overview: Overview: | | medical marijuana and sleep apnea | + + + + + | Schizophrenia | 07/12/2018 | + + + | Pseudoarthrosis of lumbar spine | 11/30/2016 | + + + | Synovial cyst of lumbar facet joint | 11/30/2016 | + + + + + | Overview: L5-S1 bilateral | + + + + + | Hip pain, chronic, left | 10/21/2015 | + + + | Bradycardia | 03/12/2015 | + + + + + | Overview: Last Assessment & Plan: Low heart rate but | | asymptomaticHe had brief period of HTN when he was on steroids | | for control of rheumatoid arthritis- now he is off steroids for | | over a year and possibly his BP is better controlled off BP | | medications.Reg EST appropriate chronotropic response to | | elhbqbgs2W echo not done yetCOntinue rest of the current | | managementContinue StatinFollow up annually- pending echo. | |Follow up annually- pending echo. | + + + + + | S/P lumbar fusion | 01/07/2015 | + + + | H/O colon cancer - 2004 | 12/02/2014 | + + + | Medical marijuana use | 12/02/2014 | + + + | Former Tobacco Smoker - quit 1981 | 12/02/2014 | + + + | Flat back syndrome | 08/20/2014 | + + + | Degenerative disc disease, lumbar | 08/20/2014 | + + + | Lumbar stenosis with neurogenic claudication | 08/20/2014 | + + + | Foraminal stenosis of lumbar region | 08/20/2014 | + + + | Lumbar radiculopathy | 08/20/2014 | + + + | Spondylolisthesis of lumbar region | 08/20/2014 | + + + | Facet arthropathy, lumbar | 08/20/2014 | + + + | Left carotid bruit | 04/02/2013 | + + + | Orthostatic hypotension | 04/02/2013 | + + + | RA (rheumatoid arthritis) | 06/15/2011 | + + + + + | Overview: ICD-10 Record updateLast Assessment & Plan: | | Rheumatoid arthritis, chronic pain issues. Followed by | | Rheumatology, Dr. Leydi Nam. Pain from arthritis possibly a | | contributor to his labile hypertension. | + + + + + | Sleep apnea, obstructive | 06/15/2011 | + + + | Depression | 06/15/2011 | + + + | Essential hypertension | 06/15/2011 | + + + + + | Overview: Last Assessment & Plan: Hypertension, borderline | | control. 71 y old man being seen today for follow-up on | | hypertension and bradycardia. Last seen one year ago and had an | | echo done 09/22/2015 which demonstrated normal LV systolic | | function with an EF of almost 70% and mild concentric LVH. He | | also had a stress test done last year. Since last seen he denies | | any hospitalization for chest pain, palpitations, or irregular | | heart rate. He denies any angina, shortness of breath, | | dizziness, or syncope. He reports his blood pressure was treated | | with lisinopril by his PCP but his blood pressure was too low | | and it was stopped. He is also on propranolol 3 times a day for | | tremor. He has severe rheumatoid arthritis which causes a great | | deal of pain and which he and his feel contributes to | | transient elevations in his blood pressure. EKG reviewed with | | patient. He was advised to continue to follow-up with his | | primary care and not experiencing any chest pain or other | | symptoms, could follow up with us in 2 years.Last Cath: naLast | | Echo, 09/22/2015 ([facility]): Aortic valve mildly sclerotic, | | trileaflet. Right and left atrial sizes WNL. No aortic stenosis | | or regurgitation. Trace mitral regurgitation. Aortic size 3.7 | | cm. Mild abdominal aortic plaque. Mild concentric LVH with | | normal systolic function.Last Stress Test: [facility]/2015 [facility] 7:27min Emre, no chest pain, ECG (-) for ischemia, | | occ PVC's.09/20/2016: EKG. Sinus bradycardia rate 52 bpm. | | Ongoing tremor affecting kewrrpu0308/25/2016: Labs: Sodium 138, | | potassium 4.2, creatinine 0.87, BUN 10, GFR 87, glucose 101, | | liver enzymes WNL. CRP <1. Hemoglobin 15.8, hematocrit 46.2, | | lately at 338. ESR zero. 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 | Parkinson's disease | | | | | | vs other | | | | | | synucleinopathy | | | | | | (HCC), JAIR scan | | | | | | positive complicated | | | | | | by essential tremor | | | | | | (Primary Dx); | | | | | | Essential tremor; | | | | | | Mild [...] ventilation; | | | | | | REM sleep behavior | | | | | | disorder | +--------+---------+ + + + from Last 3 Months Immunizations + + + + | Name | Administration Dates | Next Due | + + + + | INFLUENAZ PF | 08/02/2016, 08/08/2014, 08/11/2013, | | | TRIVALENT | 08/01/2012, 08/04/2011 | | | INTRADERMAL | | | + + + + | INFLUENZA 66 Y OR >, | 07/25/2018, 08/12/2017, 08/07/2015 | | | TRIVALENT HIGH-DOSE | | | + + + + | INFLUENZA, [id number], | 09/11/2009 | | | UNSPECIFIED | | | + + + + | INFLUENZA, | 07/22/2010, 06/24/2009, 08/23/2008, | | | UNSPECIFIED | 08/03/2007 | | | FORMULATION | | | + + + + | PNEUMOCOCCAL | 08/12/2017 | | | CONJUGATE 13-VALENT | | | | (PCV13) | | | + + + + | PNEUMOCOCCAL | 08/11/2013 | | | POLYSACCHARIDE | | | | 23-VALENT (PPSV23) | | | + + + + Family History + + +---------+ + | Medical History | Relation | Name | Comments | + + +---------+ + | Heart attack | Father | | | + + +---------+ + | Heart disease | Father | | | + + +---------+ + | Pacemaker | Father | | | + + +---------+ + | Substance abuse | Father | | | + + +---------+ + | Depression | Mother | | | + + +---------+ + | Early | Mother | | | + + +---------+ + | Mental illness | Mother | | | + + +---------+ + | Substance abuse | Mother | | | + + +---------+ + | Suicide | Mother | | | + + +---------+ + | Arthritis | Son | Mao | | | | | Rona | | + + +---------+ + + +---------+ + + | Relation | Name | Status | Comments | + +---------+ + + | Father | | | heart attack | | | | (Age | | | | | 68) | | + +---------+ + + | Mother | | | suicide | | | | (Age | | | | | 36) | | + +---------+ + + | Son | Mao | Alive | | | | Rona | | | + +---------+ + + Social History + + + [...] recent travel history available. | + + Last Filed Vital Signs + + + + + | Vital Sign | Reading | Time Taken | Comments | + + + + + | Blood Pressure | 138/76 | 06/27/2019 8:31 AM | | | | | PDT | | + + + + + | Pulse | 81 | 06/27/2019 8:31 AM | | | | | PDT | | + + + + + | Temperature | 36.8 C (98.3 F) | 06/27/2019 8:31 AM | | | | | PDT | | + + + + + | Respiratory Rate | 18 | 06/27/2019 8:31 AM | | | | | PDT | | + + + + + | Oxygen Saturation | 94% | 06/27/2019 8:31 AM | | | | | PDT | | + + + + + | Inhaled Oxygen | - | - | | | Concentration | | | | + + + + + | Weight | 107.4 kg (236 lb | 06/27/2019 8:31 AM | | | | 12.4 oz) | PDT | | + + + + + | Height | 172.7 cm (5' 8") | 06/27/2019 8:31 AM | | | | | PDT | | + + + + + | Body Mass Index | 36 | 06/27/2019 8:31 AM | | | | | PDT | | + + + + + Plan of Treatment +--------+---------+ + + + | Date | Type | Specialty | Care Team | Description | +--------+---------+ + + + | 12/07/ | Office | Neurology | Abundio Khanna MD | | | 2020 | Visit | | [address] | | | | | | [place] | | | | | | [address] | | | | | | | | +--------+---------+ + + + + + + + + | Health Maintenance | Due Date | Last Done | Comments | + + + + + | Hepatitis C | | | | | Screening | 6 | | | + + + + + | Vaccine: | | | | | Dtap/Tdap/Td (1 - | 5 | | | | Tdap) | | | | + + + + + | Vaccine: Zoster (1 | | | | | of 2) | 9 | | | + + + + + | Adult Annual | | | | | Wellness Visit | 5 | | | + + + + + | Vaccine: Influenza | | 07/30/2018, 07/25/2018, | | | (#1) | 9 | 08/12/2017, Additional history | | | | | exists | | + + + + + | Vaccine: | Completed | 08/12/2017, 08/11/2013 | | | Pneumococcal 65+ | | | | | High/Highest Risk | | | | + + + + + | AAA Screening | Completed | 12/21/2018 | | + + + + + Implants + +--------+--------+ +--------+--------+--------+ | Implanted | Type | Area | Manufacture | Device | Shelf | Model | | | | | r | | Expira | / | | | | | | Identi | tion | Serial | | | | | | fier | Date | / Lot | + +--------+--------+ +--------+--------+--------+ | Bone Canc Chip 15cc 4-10mm - | Bone | [employer]man | RTI | | 07/27/ | [id number] | | [id number]: Qty: 1 on | | ior: | BIOLOGICS | | 2020 | | | 02/23/2017 by Koby George, | | Spine | INC - RBIO | | | /[id number] | | at [facility] | | Lumbar | | | | 8-030 | | [facility] | | | | | | / | + +--------+--------+ +--------+--------+--------+ | Tlif Oblique [id number] 12deg | Generi | [employer] | NUVASIVE - | | | [id number] | | - [id number]: Qty: 1 | c | ior: | NVSV | | | 2 / / | | on 02/23/2017 by Koby George | | Spine | | | | | | MD [place] at [facility] | | Lumbar | | | | | | [facility] | | | | | | | + +--------+--------+ +--------+--------+--------+ | Tlif Oblique [id number] 4deg | Generi | [employer] | NUVASIVE - | | | [id number] | | - [id number]: Qty: 1 | c | ior: | NVSV | | | 4 / / | | on 02/23/2017 by Koby George | | Spine | | | | | | MD [place] at [facility] | | Lumbar | | | | | | [facility] | | | | | | | + +--------+--------+ +--------+--------+--------+ | Vadim Ti Prebent Lordtc 130mm - | Generi | [employer] | NUVASIVE - | | | [id number] | | [id number]: Qty: 1 | c | ior: | NVSV | | | 0 / / | | on 02/23/2017 by Koby George | | Spine | | | | | | MD [place] at [facility] | | Lumbar | | | | | | [facility] | | | | | | | + +--------+--------+ +--------+--------+--------+ | Vadim Ti Prebent Lordtc 140mm - | Generi | [employer] | NUVASIVE - | | | [id number] | | [id number]: Qty: 1 | c | ior: | NVSV | | | 0 / / | | on 02/23/2017 by Koby George | | Spine | | | | | | MD [place] at [facility] | | Lumbar | | | | | | [facility] | | | | | | | + +--------+--------+ +--------+--------+--------+ | Graft Infuse Bone Kit Xs - | Graft | [employer] | GERALDOR | | 03/30/ | [id number] | | [id number]: Qty: 2 on | | ior: | DANEK - DIV | | 2017 | 0 / | | 02/23/2017 by Koby George, | | Spine | MEDTR[employer] | | | /[id number] | | at [facility] | | Lumbar | - SFDK | | | [id number] | | [facility] | | | | | | | + +--------+--------+ +--------+--------+--------+ | Putty Patti 10cc Dbm - | Graft | [employer]man | MEDTRONIC - | | 10/20/ | [id number] | | [id number]: Qty: 1 on | | ior: | MEDT | | 2019 | | | 02/23/2017 by Koby George, | | Spine | | | | /[id number] | | at [facility] | | Lumbar | | | | 6-017 | | [facility] | | | | | | / | + +--------+--------+ +--------+--------+--------+ | Screw Set - | Screw | [employer]man | NUVASIVE - | | | [id number] | | [id number]: Qty: 10 | | ior: | NVSV | | | 0 / / | | on 02/23/2017 by Koby George | | Spine | | | | | | MD [place] at [facility] | | Lumbar | | | | | | [facility] | | | | | | | + +--------+--------+ +--------+--------+--------+ | Screw Polyax Precept 7.5x55 - | Screw | [employer]man | NUVASIVE - | | | [id number] | | [id number]: Qty: 1 | | ior: | NVSV | | | 5A / / | | on 02/23/2017 by Koby George | | Spine | | | | | | MD [place] at [facility] | | Lumbar | | | | | | [facility] | | | | | | | + +--------+--------+ +--------+--------+--------+ | Screw Polyax Prcpt 8.5x80mm - | Screw | [employer]man | NUVASIVE - | | | [id number] | | [id number]: Qty: 1 | | ior: | NVSV | | | 0A / / | | on 02/23/2017 by Koby George | | Spine | | | | | | MD [place] at [facility] | | Lumbar | | | | | | [facility] | | | | | | | + +--------+--------+ +--------+--------+--------+ | Screw Polyax Prcpt 8.5x70mm - | Screw | [employer]man | NUVASIVE - | | | [id number] | | [id number]: Qty: 1 | | ior: | NVSV | | | 0A / / | | on 02/23/2017 by Koby George | | Spine | | | | | | MD [place] at [facility] | | Lumbar | | | | | | [facility] | | | | | | | + +--------+--------+ +--------+--------+--------+ | Screw Polyax Prcpt 8.5x55mm - | Screw | [employer]neyman Pressman | NUVASIVE - | | | [id number] | | [id number]: Qty: 2 | | ior: | NVSV | | | 5A / / | | on 02/23/2017 by Koby George | | Spine | | | | | | MD [place] at [facility] | | Lumbar | | | | | | [facility] | | | | | | | + +--------+--------+ +--------+--------+--------+ | Lesiajavier Patti 10cc Dbm - | | N/A: | OSTEOTECH - | | 08/05/ | [id number] | | [id number]: Qty: 1 | | Spine | OSTT | | 2017 | [id number] | | on 12/02/2014 by Koby George | | Lumbar | | | | 5-027 | | MD [place] at [facility] | | | | | | / | | [facility] | | | | | | | + +--------+--------+ +--------+--------+--------+ | Cage Doug Wide [id number] 10deg - | | | NUVASIVE - | | | [id number] | | [id number]: Qty: 1 | | | NVSV | | | 0 / / | | on 12/02/2014 at [facility] | | | | | | | | [facility] | | | | | | | + +--------+--------+ +--------+--------+--------+ | Bone Matrix Osteocel Pro 5cc | | N/A: | NUVASIVE - | | 03/02/ | [id number] | | - [id number]: Qty: 1 | | Spine | NVSV | | 2019 | 5 | | on 12/02/2014 by Koby George | | Lumbar | | | | /[id number] | | MD [place] at [facility] | | | | | | 0519 / | | [facility] | | | | | | | + +--------+--------+ +--------+--------+--------+ | Cage Peek Xlw L 10d | | N/A: | NUVASIVE - | | | [id number] | | [id number] - | | Spine | NVSV | | | 0 / / | | [id number]: Qty: 1 on | | Lumbar | | | | | | 12/02/2014 by Koby George, | | | | | | | | at [facility] | | | | | | | | [facility] | | | | | | | + +--------+--------+ +--------+--------+--------+ | Imp Spn Spcr Xlw 10d [id number] | | N/A: | NUVASIVE - | | | [id number] | | - [id number]: Qty: 1 | | Spine | NVSV | | | 5 / / | | on 12/02/2014 by Koby George | | Lumbar | | | | | | MD [place] at [facility] | | | | | | | | [facility] | | | | | | | + +--------+--------+ +--------+--------+--------+ | Screw Polyax Precept 6.5x50 - | | | NUVASIVE - | | | [id number] | | [id number]: Qty: 1 | | | NVSV | | | 0A / / | | on 12/02/2014 by Koby George | | | | | | | | MD [place] at [facility] | | | | | | | | [facility] | | | | | | | + +--------+--------+ +--------+--------+--------+ | Screw Polyax Precept 7.5x55 - | | | NUVASIVE - | | | [id number] | | [id number]: Qty: 2 | | | NVSV | | | 5A / / | | on 12/02/2014 by Koby George | | | | | | | | MD [place] at [facility] | | | | | | | | [facility] | | | | | | | + +--------+--------+ +--------+--------+--------+ | Precept ScrewImplanted: Qty: | | | | | | [id number] | | 2 on 12/02/2014 by Koby George | | | | | | 0 / / | | MD [place] at [facility] | | | | | | | | [facility] | | | | | | | + +--------+--------+ +--------+--------+--------+ | Vadim Ti Prebent Lordtc 110mm - | | | NUVASIVE - | | | [id number] | | [id number]: Qty: 2 | | | NVSV | | | 0 / / | | on 12/02/2014 at [facility] | | | | | | | | [facility] | | | | | | | [facility] | | | | | | | + +--------+--------+ +--------+--------+--------+ | Screw Set - | | | NUVASIVE - | | | [id number] | | [id number]: Qty: 8 on | | | NVSV | | | 0 / / | | 12/02/2014 by Koby George | | | | | | | | at [facility] | | | | | | | | [facility] | | | | | | | + +--------+--------+ +--------+--------+--------+ Results Not on filefrom Last 3 Months Insurance + +--------+ +--------+ + +--------+ | Payer | Benefi | Subscriber | Effect | Phone | Address | Type | | | t Plan | ID | dhiraj | | | | | | / | | Dates | | | | | | Group | | | | | | + +--------+ +--------+ + +--------+ | [employer] | MODA | | Effect | | | Medica | | | HEALTH | | dhiraj | | | re | | | MDCR | | for | | | | | | | | all | | | | | | | | dates | | | | + +--------+ +--------+ + +--------+ | MEDICARE | MEDICA | [id number] | 12/01/18 | [phone] | | Medica | | | RE | | 80-Pre | 5 | | re | | | PART A | | sent | | | | | | AND B | | | | | | + +--------+ +--------+ + +--------+ | MEDICARE | MEDICA | [id number] | 12/01/18 | [phone] | | Medica | | | RE | | 80-Pre | 5 | | re | | | PART A | | sent | | | | | | AND B | | | | | | + +--------+ +--------+ + +--------+ | MODA | MODA | [id number] | 01/30/20 | [phone] | [address] | Indemn | | | HEALTH | | 10-Pre | [phone] | [phone] | ity | | | MDCR | | sent | | [place], | | | | [place] | | | | [place] [address] | | + +--------+ +--------+ + +--------+ + +--------+ +--------+ + + | Guarantor Name | Accoun | Relation to | Date | Phone | Billing Address | | | t Type | Patient | of | | | | | | | | | | + +--------+ +--------+ + + | Uziel Rea | Person | Self [birth year] | [address] | | | al/Fam | | 1945 | [phone] | [place] [address] | | | scot | | | 8 (Home) | | + +--------+ +--------+ + + | Uziel Rea | Person | Self [birth year] | [address] | | | al/Fam | | 1945 | [phone] | [place] [address] | | | scot | | | 8 (Home) | | + +--------+ +--------+ + + Advance Directives + + + + + | Type | Date Recorded | Patient | Explanation | | | | 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
--- OUTSIDE RECORDS SUMMARY | ~2019-09-09 | XMS | Encounter Summary ---
Demographics + + + | Address | [address] | | | [place] [address] | + + + | Home Phone | | + + + | Preferred Language | Unknown | + + + | Marital Status | | + + + | Confucianist Affiliation | Unknown | + + + | Race | Unknown | + + + | Ethnic Group | Unknown | + + + Author + + + | Author | [facility] | | | and Carlosana | + + + | Organization | [facility] | | | and [...] [place], [place] | | | | | [address] | | + + + + + | Mao Rea | ECON | Unknown | | + + + + + | Meredith Rea | ECON | Unknown | | + + + + + | Iqra Medina | ECON | [address] | | | | | [place], [place] | | | | | [address] | | + + + + + | Maldonado Rea | ECON | Unknown | | + + + + + Care Team Providers + +------+ + | Care City Sanitarian Name | Role | Phone | + [...] + + | 06/30/ | Office | [facility] | Logan Sands, | Chronic left-sided | | 2016 | Visit | PHYSIATRY [address] | [address] | low back pain with | | | | [address], | [place], [place] | left-sided sciatica | | | | [place] [address] | [address] | (Primary Dx); Lumbar | | | | [phone] | | radiculopathy; Left | | | | | | leg pain; Left leg | [...] office has not contacted you within one wee k, to schedule the injection, please contact my clinic. Your injection will be performed at [facility]. Please take note of [...] MD - 06/30/2016 11:12 AM PDT [facility] PHYSIATRY [address] [facility] [address] OFFICE NOTE LOGAN SANDS JR, MD Patient: RACHEL REA Admitting: MR #: [id number] LOC: PT TYPE: Adm Date: 06/30/2016 : [...] reviewed by me and I concur with fi brayan reported by the radiologist. Imaging demonstrates prior [...] 06/30/2016 11:12:53 Transcribed on 07/01/2016 00:00:39 by [facility] [place]# [id number] Confirmation #: [id number] cc: BRANDON JUAREZ MD Logan Sands MD - 06/30/2016 10:57 AM PDTThis office note has been dictated. Report Confirmation# [id number] signed by Logan Sands MD at 06/30/2016 11:13 AM PDTdocumented in this encounter Plan of Treatment +--------+---------+ + + + | Date | Type | Specialty | Care Team | Description | +--------+---------+ + + + | 12/07/ | Office | Neurology | Abundio Khanna MD | | | 2020 | Visit | | [address] | | | | | | [place] | | | | | | [address] | | | | | | | [...]
--- OUTSIDE RECORDS SUMMARY | ~2019-09-09 | XMS | Encounter Summary ---
Demographics + + + | Address | [address] | | | [place] [address] | + + + | Home Phone | | + + + | Preferred Language | Unknown | + + + | Marital Status | | + + + | Sikhism Affiliation | Unknown | + + + | Race | Unknown | + + + | Ethnic Group | Unknown | + + + Author + + + | Author | [facility] | | | and Carlosana | + + + | Organization | [facility] | | | and [...] [place], [place] | | | | | [address] | | + + + + + | Mao Rea | ECON | Unknown | | + + + + + | Meredith Rea | ECON | Unknown | | + + + + + | Iqra Medina | ECON | [address] | | | | | [place], [place] | | | | | [address] | | + + + + + | Maldonado Rea | ECON | Unknown | | + + + + + Care Team Providers + +------+ + | Care Hebrew Professor Name | Role | Phone | + [...] | Radiology | Diagnoses | Soto, | Chilo Mri | | | | | Lumbar | Logan Rios MD | [address] | | | | | radiculopath | [address] | [place], | | | | | y Left leg | [address] | [place] | | | | | pain Left | [place], | [address] | | | | | leg weakness | [place] [address] | Phone: | | | | | Numbness | Phone: | [phone] | | | | | of left foot | [phone] | Fax: | | | | | History of | Fax: | [phone] | | | | | lumbar | [phone] | | | | | | fusion | | | | | | | Procedures | | | | | | | MRI Lumbar | | | | | | | Spine w wo | | | | | | [...] [facility] | | | | | Lumbar | Logan Rios MD | [address] | | | | | radiculopath | [address] | [place], | | | | | y Left leg | [address] | [place] | | | | | pain Left | [place], | [address] | | | | | leg weakness | [place] [address] | Phone: | | | | | Numbness | Phone: | [phone] | | | | | of left foot | [phone] | Fax: | | | | | History of | Fax: | [phone] | | | | | lumbar | [phone] | | | | | | fusion | | | | | | | Procedures | | | | | | | MRI Lumbar | | | | | | | Spine w wo | | | | | | | Contrast | | | +--------+--------+ + + + + Encounter Details +--------+ + + + + | Date | Type | Department | Care Team | Description | +--------+ + + + + | 06/23/ | Hospital | [facility] | Logan Soto, | Lumbar | | 2016 | Encounter | [facility] MRI [address] | MD [address] | radiculopathy; Left | | | | [address], | [place], [place] | leg pain; Left leg | | | | [place] [address] | [address] | weakness; Numbness | | | | [phone] | | of left foot; | | | | | | History of lumbar | | | | | | fusion | +--------+ + + + + Social [...] [place] | | | | | | [address] | | | | | | | | +--------+---------+ + + + documented as of this encounter Procedures + +--------+ + + + | Procedure Name | Priori | Date/Time | Associated Diagnosis | Comments | | | ty | | | | + +--------+ + + + | MRI LUMBAR SPINE W | Routin | 06/23/2016 | Lumbar | Results for this | | WO CONTRAST | e | 10:56 AM | radiculopathy Left | procedure are in the | | | | PDT | leg pain Left leg | results section. | | | | | weakness Numbness | | | | | | of left foot | | | | | | History of lumbar | | | | | | fusion | | + +--------+ + + + documented in this encounter Results MRI Lumbar Spine w wo Contrast (06/23/2016 10:56 AM PDT) + + | Specimen | + + | | + + + + + | Narrative | Performed At | + + + | MRI LUMBAR SPINE W WO CONTRAST. 06/23/2016 10:25 AM HISTORY: | [facility] | | History of L2-L5 fusion, now with pain, numbness, weakness in left | [facility] | | L5-S1 radicular pattern. COMPARISON: MRI lumbar spine 06/26/2014 | [facility] | | and lumbar spine x-ray 10/21/2015 TECHNIQUE: Multiplanar, | - IMAGING | | multisequence MRI images of the lumbar spine were obtained both prior | | | to and following administration of 10 cc Gadavist IV contrast. | | | FINDINGS: Posterior spinal fusion hardware spans the levels of L2-L5, | | | with disc spacers at the levels of L3-4 and L4-5, with subsequent | | | field inhomogeneity and susceptibility artifact that hinders | | | evaluation of adjacent structures. There is retrolisthesis of L2 on | | | L3. There is anterolisthesis of L4 on L5. There is subsidence at | | | the superior endplate of L4, not substantially changed as compared | | | with 10/21/2015. Schmorl's node changes are seen at T11-12. Bone | | | marrow signal is within normal limits for the patient's age and | | | postsurgical status. There is degenerative disc disease at the | | | nonfused levels. There is severe loss of posterior disc height at | | | L2-3. The conus medullaris terminates normally at the level of 1112. | | | On sagittal images provided, there is a small posterior disc bulge | | | at T11-12, with approximately 1.5 mm extension into the spinal | | | canal. On axial imaging: L1-2: Bilobed posterior disc bulge | | | that contours the thecal sac. Facet degenerative hypertrophy and | | | ligamentum flavum thickening, with prominence of the dorsal epidural | | | sinus fat. The thecal sac measures 9 mm in midline AP diameter. | | | There is some compaction of the descending cauda equina nerve root | | | fibers with decrease in the CSF space surrounding the descending nerve | | | root fibers. 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 L2-3: | | | Postsurgical change at this level. Posterior disc marginal | | | osteophyte complex formation. Facet degenerative hypertrophy. No | | | significant narrowing of the thecal sac. Moderate left and possible | | | severe right neural foraminal narrowing, although there is some | | | distortion of the images secondary to field inhomogeneity. L3-4: | | | Postsurgical change at this level. Facet degenerative hypertrophy | | | with ligamentum flavum thickening. 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 Moderate bilateral neural foraminal narrowing. | | | L4-5: Postsurgical change at this level. Anterolisthesis of L4 | | | on L5. Posterior disc bulge with approximately 2.5 mm extension into | | | the spinal canal. Facet degenerative hypertrophy. Thecal sac | | | measures 10.5 mm in midline AP diameter. Moderate bilateral neural | | | foraminal narrowing. L5-S1: Small posterior central disc | | | protrusion that mildly contours the thecal sac. Facet degenerative | | | hypertrophy and ligamentum flavum thickening. Periarticular cyst | | | seen bilaterally that projects into the spinal canal. Thecal sac | | | narrowed to 10 mm in orthogonal AP diameter by 13 mm in transverse | | | diameter. There is encroachment on bilateral lateral recesses. | | | Mild-moderate right bilateral neural foraminal narrowing. A | | | prominent, simple-appearing cyst projects from the lateral inferior | | | pole of the right kidney, similar to 06/26/2014. Postsurgical change | | | seen in the tissues of the low back, with expected contrast | | | enhancement in these areas. IMPRESSION - Posterior spinal | | | fusion spanning L2-L5, with subsidence at the superior endplate of | | | L4, not substantially changed as compared with 10/21/2015. Multilevel | | | degenerative disc disease and spondylotic change, with subsequent | | | multilevel neural foraminal narrowing ranging up to possibly severe in | | | degree, as detailed above. Dictated and Signed by: Alfred | | | MD Crystal Electronically signed: 06/23/2016 1:59 PM | | + + + + + | Procedure Note | + + | Alexis, Rad Results In - 06/23/2016 2:02 PM PDT MRI LUMBAR SPINE W WO CONTRAST. | | 06/23/2016 10:25 AMHISTORY: History of L2-L5 fusion, now with pain, numbness, weakness in | | leftL5-S1 radicular pattern.COMPARISON: MRI lumbar spine 06/26/2014 and lumbar spine | | x-ray 10/21/2015TECHNIQUE: Multiplanar, multisequence MRI images of the lumbar spine | | wereobtained both prior to and following administration of 10 cc Gadavist | | IVcontrast.FINDINGS:Posterior spinal fusion hardware spans the levels of L2-L5, with | | disc spacers atthe levels of L3-4 and L4-5, with subsequent field inhomogeneity | | andsusceptibility artifact that hinders evaluation of adjacent structures.There is | | retrolisthesis of L2 on L3. There is anterolisthesis of L4 on L5.There is subsidence at | | the superior endplate of L4, not substantially changed ascompared with 10/21/2015. | | Schmorl's node changes are seen at T11-12.Bone marrow signal is within normal limits for | | the patient's age andpostsurgical status.There is degenerative disc disease at the | | nonfused levels. There is severe lossof posterior disc height at L2-3.The conus | | medullaris terminates normally at the level of 1112.On sagittal images provided, there | | is a small posterior disc bulge at T11-12,with approximately 1.5 mm extension into the | | spinal canal.On axial imaging:L1-2: Bilobed posterior disc bulge that contours the | | thecal sac. Facetdegenerative hypertrophy and ligamentum flavum thickening, with | | prominence ofthe dorsal epidural sinus fat. The thecal sac measures 9 mm in midline | | APdiameter. There is some compaction of the descending cauda equina nerve rootfibers | | with decrease in the CSF space surrounding the descending nerve rootfibers. There is | | appearance of congenitally short pedicles, with mild-moderatebilateral neural foraminal | | narrowing.L2-3: Postsurgical change at this level. Posterior disc marginal | | osteophytecomplex formation. Facet degenerative hypertrophy. No significant narrowing | | ofthe thecal sac. Moderate left and possible severe right neural foraminalnarrowing, | | although there is some distortion of the images secondary to fieldinhomogeneity.L3-4: | | Postsurgical change at this level. Facet degenerative hypertrophy withligamentum flavum | | thickening. There is some clumping of the cauda equina nerveroot fibers together, as | | can be seen with history of arachnoiditis. Moderatebilateral neural foraminal | | narrowing.L4-5: Postsurgical change at this level. Anterolisthesis of L4 on L5. | | Posterior disc bulge with approximately 2.5 mm extension into the spinal canal. Facet | | degenerative hypertrophy. Thecal sac measures 10.5 mm in midline APdiameter. Moderate | | bilateral neural foraminal narrowing.L5-S1: Small posterior central disc protrusion | | that mildly contours the thecalsac. Facet degenerative hypertrophy and ligamentum | | flavum thickening. Periarticular cyst seen bilaterally that projects into the spinal | | canal. Thecalsac narrowed to 10 mm in orthogonal AP diameter by 13 mm in transverse | | diameter. There is encroachment on bilateral lateral recesses. Mild-moderate | | rightbilateral neural foraminal narrowing.A prominent, simple-appearing cyst projects | | from the lateral inferior pole ofthe right kidney, similar to 06/26/2014.Postsurgical | | change seen in the tissues of the low back, with expected contrastenhancement in these | | areas.IMPRESSION -Posterior spinal fusion spanning L2-L5, with subsidence at the | | superior endplateof L4, not substantially changed as compared with 10/21/2015.Multilevel | | degenerative disc disease and spondylotic change, with subsequentmultilevel neural | | foraminal narrowing ranging up to possibly severe in degree,as detailed above.Dictated | | and Signed by: Alfred Rojas MD Electronically signed: 06/23/2016 1:59 PM | |ligamentum flavum thickening. 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 Moderate | |bilateral neural foraminal narrowing. | | | |L4-5: Postsurgical change at this level. Anterolisthesis of L4 on L5. | |Posterior disc bulge with approximately 2.5 mm extension into the spinal canal. | |Facet degenerative hypertrophy. Thecal sac measures 10.5 mm in midline AP | |diameter. Moderate bilateral neural foraminal narrowing. | | | |L5-S1: Small posterior central disc protrusion that mildly contours the thecal | |sac. Facet degenerative hypertrophy and ligamentum flavum thickening. | |Periarticular cyst seen bilaterally that projects into the spinal canal. Thecal | |sac narrowed to 10 mm in orthogonal AP diameter by 13 mm in transverse diameter. | | There is encroachment on bilateral lateral recesses. Mild-moderate right | |bilateral neural foraminal narrowing. | | | |A prominent, simple-appearing cyst projects from the lateral inferior pole of | |the right kidney, similar to 06/26/2014. | |Postsurgical change seen in the tissues of the low back, with expected contrast | |enhancement in these areas. | | | | | | | |IMPRESSION - | |Posterior spinal fusion spanning L2-L5, with subsidence at the superior endplate | |of L4, not substantially changed as compared with 10/21/2015. | |Multilevel degenerative disc disease and spondylotic change, with subsequent | |multilevel neural foraminal narrowing ranging up to possibly severe in degree, | |as detailed above. | | | |Dictated and Signed by: Alfred Rojas MD | | Electronically signed: 06/23/2016 1:59 PM | + + + + + + + | Performing | Address | City/State/Zipcode | Phone Number | | Organization | | | | + + + + + | [facility] | [address] | [place] | [phone] | | [facility] | | [address] | | | - IMAGING | | [...] History of lumbar fusion | + + documented in this encounter Administered Medications + +--------+ +--------+------+------+ | Medication Order | MAR | Action | Dose | Rate | Site | | | Action | Date | | | | + +--------+ +--------+------+------+ | gadobutrol (GADAVIST) injection | Given | 06/23/20 | 10 mLs | | | | 10 mL 10 mL, Intravenous, ONCE | | 16 10:57 | | | | | PRN, Other, Starting 06/23/16 | | AM PDT | | | | | at 1057, For 1 dose, MRI | | | | | | + +--------+ +--------+------+------+ +---+---+ | | | +---+---+ documented in this encounter"
--- OUTSIDE RECORDS SUMMARY | ~2019-09-09 | XMS | Encounter Summary ---
Demographics + + + | Address | [address] | | | [place] [address] | + + + | Home Phone | | + + + | Preferred Language | Unknown | + + + | Marital Status | | + + + | Judaism Affiliation | Unknown | + + + | Race | Unknown | + + + | Ethnic Group | Unknown | + + + Author + + + | Author | [facility] | | | and [place]ana | + + + | Organization | [facility] | | | and [place] | [...] [place], [place] | | | | | [address] | | + + + + + | Mao Rea | ECON | Unknown | | + + + + + | Meredith Rea | ECON | Unknown | | + + + + + | Iqra Medina | ECON | [address] | | | | | [place], [place] | | | | | [address] | | + + + + + | Maldonado Rea | ECON | Unknown | | + + + + + Care Team Providers + +------+ + | Care Internal Revenue Service Agent Name | Role | Phone | + [...] | | | | | stenosis | [address] | [place], [place] | | | | | Lumbalgia | [place], | [address] | | | | | Lumbar | [place] [address] | Phone: | | | | | degenerative | Phone: | [phone] | | | | | disc | [phone] | Fax: | | | | | disease | Fax: | [phone] | | | | | 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 documented in this encounter Progress Notes Koby George MD - 08/20/2014 8:26 AM PDTFormatting of this note might be different from t he original. Koby George MD [address] [facility], [address] [place] [address] FAX: NEUROSURGERY HISTORY AND PHYSICAL EXAMINATION CHIEF [...] deficits with short or senior care memory. CRANIAL NERVES: II: Acuity is intact. [...] Intrinsics 5 5 Ulnar Intrinsics 5 5 Hand Etcher Helper Strength 5 5 Hip Flexion 5 5 [...] today with the majority of time spent family and marriage counsellor ling the patient on his diagnosis, options [...] [place] | | | | | | [address] | | | | | | | [...]
--- OUTSIDE RECORDS SUMMARY | ~2019-09-09 | XMS | Encounter Summary ---
Demographics + + + | Address | [address] | | | [place] [address] | + + + | Home Phone [...] Author | [facility] | | | and Carlosana | + + + | Organization | [facility] | | | and [place] | + + + | Address | Unknown | + + + | Phone | Unavailable | + + + Support + + + + + | Name | Relationship | Address | Phone | + + + + + | Henny Rea | ECON | [address] | | | | | [place], [place] | | | | | [address] | | + + + + + | Mao Rea | ECON | Unknown | | + + + + + | Meredith Rea | ECON | Unknown | | + + + + + | Iqra Medina | ECON | [address] | | | | | [place], [place] | | | | | [address] | | + + + + + | Maldonado Rea | ECON | Unknown | | + + + + + Care Team Providers + +------+ + | Care Vp [employer] Name | Role | Phone | + +------+ + | Brandon Juarez MD | PCP | | + +------+ + Reason for Visit + + + | Reason | Comments | + + + | Post Op | PO Call | + + + | Medication Refill | | + + + Encounter Details +--------+ + + + + | Date | Type | Department | Care Team | Description | +--------+ + + + + | 02/28/ | Telephone | [facility] | Koby George MD | Post Op (PO Call); | | 2017 | | NEUROSURGERY [address] | [address] | Medication Refill | | | | [address] | [place] [address] | | | | | [place] | [phone] | | | | | [address] | | | | | | [phone] | | | +--------+ + + + [...] | | | | | | [place], [place] | | | | | | [address] | | | | | | | | +--------+---------+ + + + documented as of this encounter Visit Diagnoses Not on filedocumented in this encounter"
--- OUTSIDE RECORDS SUMMARY | ~2019-09-09 | XMS | Encounter Summary ---
Demographics + + + | Address | [address] | | | [place] [address] | + + + | Home Phone [...] [place], [place] | | | | | [address] | | + + + + + | Mao Rea | ECON | Unknown | | + + + + + | Meredith Rea | ECON | Unknown | | + + + + + | Iqra Medina | ECON | [address] | | | | | [place], [place] | | | | | [address] | | + + + + + | Maldonado Rea | ECON | Unknown | | + + + + + Care Team Providers + +------+ + | Care Architectural Technician Name | Role | Phone | [...] | | [address] | [place] [address] | | | | | [place] | [phone] | | | | | [address] | | | | | | [phone] | | | +--------+ + + + [...] [place] | | | | | | [address] | | | | | | | | +--------+---------+ + + + documented as of this encounter Visit Diagnoses Not on filedocumented in this encounter"
--- OUTSIDE RECORDS SUMMARY | ~2019-09-09 | XMS | Encounter Summary ---
Demographics + + + | Address | [address] | | | [place] [address] | + + + | Home Phone | | + + + | Preferred Language | Unknown | + + + | Marital Status | | + + + | Tenriism Affiliation | Unknown | + + + | Race | Unknown | + + + | Ethnic Group | Unknown | + + + Author + + + | Author | [facility] | | | and Carlosana | + + + | Organization | [facility] | | | and Carlosana [...] [place], [place] | | | | | [address] | | + + + + + | Mao Rea | ECON | Unknown | | + + + + + | Meredith Rea | ECON | Unknown | | + + + + + | Iqra Medina | ECON | [address] | | | | | [place], [place] | | | | | [address] | | + + + + + | Maldonado Rea | ECON | Unknown | | + + + + + Care Team Providers + +------+ + | Care Patrol Inspector Name | Role | Phone | + +------+ + | Brandon Juarez MD | PCP | | + +------+ + Encounter Details +--------+ + + + + | Date | Type | Department | Care Team | Description | +--------+ + + + + | 09/05/ | Orders Only | [facility] | Koby George MD | Sleep apnea, | | 2014 | | NEUROSURGERY [address] | [address] | obstructive (Primary | | | | [address] | [place] [address] | Dx); Essential | | | | [place] | [phone] | hypertension, | | | | [address] | | benign; Fatigue; | | | | [phone] | | Cancer (HCC); | | | [...] [place] | | | | | | [address] | | | | | | | | +--------+---------+ + + + documented as of this encounter Results ECG 12 lead (11/29/2014 [...] Christopher Alvarado MD - 11/29/2014 7:31 AM [facility] Adult ECG Report | | | | Name: Uziel Rea | | Age: 69 y.o. | | Gender: male | | | | 11/27/14 at 9:12 | | Narrative Interpretation: Sinus bradycardia. Normal axis. Normal intervals. | + + XR Chest PA and Lateral (11/27/2014 9:36 AM [facility]) + + | Specimen | + + | | + + + + + | Narrative | Performed At | + + + | PA AND LATERAL CHEST 11/27/2014 9:36 AM CLINICAL HISTORY: | MISCELANIOUS | | preoperative clearance COMPARISON: None available FINDINGS: | LAB | | There is tortuosity of the thoracic aorta. The cardiomediastinal | | | silhouette and pulmonary vasculature are otherwise unremarkable. | | | There is mild hazy reticular opacity in the anterior left base. | | | The lungs are clear elsewhere, without pneumothorax or pleural | | | effusion. Multilevel thoracic spondylosis is present. The bones | | | and soft tissues are otherwise unremarkable. IMPRESSION - 1. | | | NO CONCLUSIVE EVIDENCE OF ACTIVE DISEASE IN THE CHEST. MILD, HAZY | | | RETICULAR OPACITY AT THE ANTERIOR LEFT BASE FAVORS EPICARDIAL FAT | | | DEPOSITION AND/OR ATELECTASIS/SCAR. Dictated and Signed by: Christian Oden | | MD Emre Electronically signed: 11/27/2014 10:18 AM | | + + + + + | Procedure Note | + + | Alexis, Rad Results In - 11/27/2014 10:21 AM PST PA AND LATERAL CHEST 11/27/2014 9:36 AM | | | | CLINICAL HISTORY: preoperative clearance | | | | COMPARISON: None available | | | | FINDINGS: There is tortuosity of the thoracic aorta. The cardiomediastinal | | silhouette and pulmonary vasculature are otherwise unremarkable. There is mild | | hazy reticular opacity in the anterior left base. The lungs are clear | | elsewhere, without pneumothorax or pleural effusion. Multilevel thoracic | | spondylosis is present. The bones and soft tissues are otherwise unremarkable. | | | | IMPRESSION - | | | | 1. NO CONCLUSIVE EVIDENCE OF ACTIVE DISEASE IN THE CHEST. MILD, HAZY RETICULAR | | OPACITY AT THE ANTERIOR LEFT BASE FAVORS EPICARDIAL FAT DEPOSITION AND/OR | | ATELECTASIS/SCAR. | | | | Dictated and Signed by: Christian Andrea MD | | Electronically signed: 11/27/2014 10:18 AM | + + + +---------+ + + | Performing | Address | City/State/Zipcode | Phone Number | | Organization | | | | + +---------+ + + | MISCELLANEOUS LAB | | | [phone] | + +---------+ + + | MISCELANIOUS LAB | | | [phone] | + +---------+ + + CBC with Differential (11/27/2014 9:13 AM PST) + + + + + + | Component | Value | Ref Range | Performed | Pathologist | | | | | At | Signature | + + + + + + | WBC | 5.2 | 4.0 - 11.0 K/uL | [facility] - | | | | | | LABORATORY | | + + + + + + | RBC | 5.46 | 4.30 - 5.70 | [facility] | | | | | M/uL | [facility] | | | | | | [facility] | | | | | | [facility] - | | | | | | LABORATORY | | + + + + + + | Hemoglobin | 17.8 | 13.5 - 18.0 | [facility] | | | | | g/dL | [facility] | | | | | | [facility] | | | | | | [facility] - | | | | | | LABORATORY | | + + + + + + | Hematocrit | 52.9 (H) | 40.0 - 51.0 % | [facility] | | | | | | [facility] | | | | | | [facility] | | | | | | [facility] - | | | | | | LABORATORY | | + + + + + + | MCV | 97.0 | 83.0 - 101.0 fL | [facility] | | | | | | [facility] | | | | | | [facility] | | | | | | [facility] - | | | | | | LABORATORY | | + + + + + + | MCH | 32.6 | 28.0 - 35.0 pg | [facility] | | | | | | [facility] | | | | | | [facility] | | | | | | [facility] - | | | | | | LABORATORY | | + + + + + + | MCHC | 33.6 | 32.0 - 36.0 | [facility] | | | | | g/dL | [facility] | | | | | | [facility] | | | | | | C[facility] - | | | | | | LABORATORY | | + + + + + + | RDW-CV | 15.4 (H) | <15.0 % | [facility] | | | | | [facility] | | | | | | [facility] | | | | | | [facility] - | | | | | | LABORATORY | | + + + + + + | Platelet | 234 | 140 - 440 K/uL | [facility] [...] + + + + | % | 46.8 | 45.0 - 82.0 % | [facility] | | | Neutrophils | | | [facility] | | | | | | [facility]ICAL | | | | | | CENTER - | | | | | | LABORATORY | | + + + + + + | % | 36.8 | 20.0 - 45.0 % | [facility] | | | Lymphocytes | | | [facility] | | | | | | [facility] | | | | | | CENTER - | | | | | | LABORATORY | | + + + + + + | % Monocytes | 12.2 (H) | 4.0 - 12.0 % | [facility] | | | | | | [facility] | | | | | | [facility] | | | | | | C[facility] - | | | | | | LABORATORY | | + + + + + + | % | 3.1 | 0.0 - 5.0 % | [facility] | | | Eosinophils | | | [facility] | | | | | | [facility] | | | | | | CENTER - | | | | | | LABORATORY | | + + + + + + | % Basophils | 1.1 (H) | 0.0 - 1.0 % | [facility] | | | | | | [facility] | | | | | | MEDICAL | | | | | | CENTER - | | | | | | LABORATORY | | + + + + + + | Absolute | 2.40 | 1.80 - 8.50 | [facility] | | | Neutrophils | | K/uL | [facility] | | | | | | [facility]ICAL | | | | | | CENTER - | | | | | | LABORATORY | | + + + + + + | Absolute | 1.90 | 0.60 - 3.20 | [facility] | | | Lymphocytes | | K/uL | [facility] | | | | | | MEDICAL | | | | | | CENTER - | | | | | | LABORATORY | | + + + + + + | Absolute | 0.60 | 0.00 - 1.00 | [facility] | [...] | | Eosinophils | | K/uL | [facility] | | | | | | MEDICAL | | | | | | CENTER - | | | | | | LABORATORY | | + + + + + + | Absolute | 0.10 | 0.00 - 0.10 | [facility] | [...] [address] | [place] | [phone] | | [facility] | | [address] | | | - LABORATORY | | | | + + + + + | [facility] | [address] | [place] | | | [facility] | | [address] | | | - LABORATORY | | | | + + + + + Basic Metabolic Panel (11/27/2014 9:13 AM PST) + + + + + + | Component | Value | Ref Range | Performed | Pathologist | | | | | At | Signature | + + + + + + | Na | 140 | 136 - 149 | [facility] | | | | | mmol/L | [facility] | | | | | | [facility] | | | | | | CENTER - | | | | | | LABORATORY | | + + + + + + | K | 4.1 | 3.5 - 5.1 | [facility] | | | | | mmol/L | [facility] | | | | | | [facility] | | | | | | CENTER - | | | | | | LABORATORY | | + + + + + + | Cl | 112 (H) | 98 - 109 mmol/L | [facility] | | | | | | [facility] | | | | | | [facility] | | | | | | CENTER - | | | | | | LABORATORY | | + + + + + + | CO2 | 26 | 24 - 31 mmol/L | [facility] | | [facility] | [facility] | | | | | | [facility] - | | | | | | LABORATORY | | + + + + + + | Anion Gap | 2 (L) | 3 - 16 mmol/L | [facility] | | | | | | [facility] | | | | | | MEDICAL | | | | | | CENTER - | | | | | | LABORATORY | | + + + + + + | Glucose | 99 | 70 - 109 mg/dL | [facility] | | | | | | [facility] | | | | | | MEDICAL | | | | | | CENTER - | | | | | | LABORATORY | | + + + + + + | BUN | 14 | 7 - 18 mg/dL | [facility] | | | | | | [facility] | | | | | | MEDICAL | | | | | | CENTER - | | | | | | LABORATORY | | + + + + + + | Creatinine | 0.75 | 0.60 - 1.30 | [facility] | | | | | mg/dL | [facility] | | | | | | MEDICAL | | | | | | CENTER - | | | | | | LABORATORY | | + + + + + + | eGFR if not | >60Comment: GLOMERULAR | >=60 | [facility] | | | | FILTRATION | mL/min/1.73m2 | [facility] | | | BRITISH | RATE,ESTIMATED | | MEDICAL | | | | mL/min/1.34v6Mdcv than | | CENTER - | | [...] + + + + | Calcium | 9.1 | 8.3 - 10.5 | [facility] | | | | | mg/dL | [facility] | | | | | | MEDICAL | | | | | | CENTER - | | | | | | LABORATORY | | + + + + + + | BUN/Creatin | 18.7 | | [facility] | | | ine Ratio | | | [facility] | | [...] + | [facility] | [address] | [place], [place] | [phone] | | [facility] | | [address] | | | - LABORATORY | | | | + + + + + | [facility] | [address] | [place], [place] | | | [facility] | | [address] | | | - LABORATORY | | | | + + + + + documented in this encounter Visit Diagnoses + + | Diagnosis | + + | Sleep apnea, obstructive - Primary Obstructive sleep apnea (adult) (pediatric) [...]
--- OUTSIDE RECORDS SUMMARY | ~2019-09-09 | XMS | Encounter Summary ---
Demographics + + + | Address | [address] | | | [place] [address] | + + + | Home Phone [...] | Author | [facility] | | | and Carlosana | + + + | Organization | [facility] | | | and [...] [place], [place] | | | | | [address] | | + + + + + | Mao Rea | ECON | Unknown | | + + + + + | Meredith Rea | ECON | Unknown | | + + + + + | Iqra Medina | ECON | [address] | | | | | [place], [place] | | | | | [address] | | + + + + + | Maldonado Rea | ECON | Unknown | | + + + + + Care Team Providers + +------+ + | Care Cash Applications Analyst Name | Role | Phone | + [...] | | | | | | | HI ARTHDSIS | | | | | | [...] | | | | | | ION HI INSJ | | | | | | [...] | | | | | | SEG HI | | | | | | | ALLOGRAFT | | | | | | | FOR SPINE | | | | | | | SURGERY ONLY | | | | | | | MORSELIZED | | | | | | | HI REINSERT | | | | | | | SPINAL | | | | | | | FIXATION HI | | | | | | | REINSERT | | | | | | | SPINAL | | | | | | | FIXATION HI | | | | | | | REINSERT | | | | | | | SPINAL | | | | | | | FIXATION HI | | | | | | | INSJ | | | | | | | BIOMCHN DEV | | | | | | | INTERVERTEBR | | | | | | | AL DSC SPC | | | | | | | W/ARTHRD HI | | | | | | | INSJ | | | | | | | BIOMCHN DEV | | | | | | | INTERVERTEBR | | | | | | | AL DSC SPC | | | | | | | W/ARTHRD HI | | | | | | | | | | | | | | LAMINEC/FACE | | | | | | | TECT/FORAMIN | | | | | | | ,EACH ADDNL | | | | | | | HI | | | | | | | [...] + + | 02/23/ | Anesthesia | [facility] | Devonte You | | | 2017 | Event | MED CTR OR INTRA OP | MD Monique [address] | | | | | [address] | [place], [place] | | | | | [place] | [address] | | | | | [address] | | | | | | [phone] | Emre Lock MD | | | | | | [address] | | | | | | [place], [place] | | | | | | [address] | | | | | | | | +--------+ + + + + Anesthesia Record + + + + + | Procedure Name | Responsible | Anesthesia Start | Anesthesia Stop Time | | | Anesthesiologist | Time | | + + + + + | L5-S1 Transforaminal | Devonte You, | 02/23/17 0812 | 02/23/17 1234 | | Lumbar Interbody | MD | | | | Fusion, Hardware | [...] +----+---+ + + | | 0 | [place] | | | | 8 | 43-degrees | | | | 2 | | | | | 8 | | | +----+---+ + + | | 0 | First | | | | 8 | Inc/Proc St | | | | 3 | | | | | 3 | | | +----+---+ + + | | 1 | [place] off | | | | 1 | [...] collapsible closed device; 10 fr | Ana A Coronado, RN | Kel Parish | | Site [...] 1426 by | | eral | Forearm; evbs-fcl-pyzcic catheter | Hasmukh Espinoza RN | Kel [...] | Airway | Placement Date: 02/23/17; | 02/23/17 08 by | 02/23/17 1234 by | | | Placement Time: 821; Mask | Devonte You, | Devonte You, | | | Ventilation: EZ; Airway Grade: | MD | MD | | | 2a; External Maneuvers: CP; | | | | | Successful Technique: video scope | | | | | (Santana); Laryngoscope Blade | | | | | [...] + + + | Read | 02/23/17; 09; Bilateral; back; | 02/23/17 09 by | 01/23/19 1342 by | | [...] Dorman RN | Dwight Braxton, | | Cathmisael | elements; All elements; All | | [...] [place] | | | | | | [address] | | | | | | | [...] | | | | CONTINUOUS PRN, Starting Tue | | | | | | [...] | | | | | Secretions, Starting Tue02/23/17 | | AM PDT | | | | | at 0840, Anesthesia Intra-op | | | | | | + +-------+ +--------+---+---+ +---+---+ | | | +---+---+ + +-------+ +------+---+---+ | HYDROmorphone (DILAUDID) 2 | Given | 02/24/20 | 1 mg | | | | mg/mL injection PRN, Pain, | | 17 11:18 | | | | | Starting Tue02/23/17 at 0820, | | AM PDT | [...] | | | | | Anxiety, Starting Tue02/23/17 at | | AM PDT | | [...] | | | | | Dyssynchrony, Starting Tue | | AM PDT | | | | | 02/23/17 at 0821, Anesthesia | | | | | | | Intra-op | | | | | | + +-------+ +------+---+---+ +---+---+ | | | +---+---+ documented in this encounter"
--- OUTSIDE RECORDS SUMMARY | ~2019-09-09 | XMS | Encounter Summary ---
Demographics + + + | Address | [address] | | | [place] [address] | + + + | Home Phone | | + + + | Preferred Language | Unknown | + + + | Marital Status | | + + + | Yazidism Affiliation | Unknown | + + + | Race | Unknown | + + + | Ethnic Group | Unknown | + + + Author + + + | Author | [facility] | | | and [place] | + + + | Organization | [facility] | | | and Carlosana [...] [place], [place] | | | | | [address] | | + + + + + | Mao Rea | ECON | Unknown | | + + + + + | Meredith Rea | ECON | Unknown | | + + + + + | Iqra Medina | ECON | [address] | | | | | [place], [place] | | | | | [address] | | + + + + + | Maldonado Rea | ECON | Unknown | | + + + + + Care Team Providers + +------+ + | Care Performance Specialist Name | Role | Phone | + +------+ + | Brandon Juarez MD | PCP | | + +------+ + Encounter Details +--------+ + + + + | Date | Type | Department | Care Team | Description | +--------+ + + + + | 11/27/ | Hospital | [facility] | Koby George MD | | | 2014 | Encounter | MED CTR LABORATORY | [address] | | | | | [address] | [place] [address] | | | | | [place] | [phone] | | | | | [address] | | | | | | [phone] | | | +--------+ + + + [...] [place] | | | | | | [id number] | | | | | | | | +--------+---------+ + + + documented as of this encounter Visit Diagnoses Not on filedocumented in this encounter"
--- OUTSIDE RECORDS SUMMARY | ~2019-09-09 | XMS | Encounter Summary ---
Demographics + + + | Address | [address] | | | [place] [address] | + + + | Home Phone | | + + + | Preferred Language | Unknown | + + + | Marital Status | | + + + | Rastafari Affiliation | Unknown | + + + | Race | Unknown | + + + | Ethnic Group | Unknown | + + + Author + + + | Author | [facility] | | | and [place]ana | + + + | Organization | [facility] | | | and [...] [place], [place] | | | | | [address] | | + + + + + | Mao Rea | ECON | Unknown | | + + + + + | Meredith Rea | ECON | Unknown | | + + + + + | Iqra Medina | ECON | [address] | | | | | [place], [place] | | | | | [address] | | + + + + + | Maldonado Rea | ECON | Unknown | | + + + + + Care Team Providers + +------+ + | Care Communication Spec Name | Role | Phone | + [...] | Lumbar | Tino, | [address] | | | | | radiculopath | Luis Carlos Lerner MD | [place], | | | | | y | [address] | [place] | | | | | Procedures | [address] [place] | [address] | | | | | RI INJECT | [place] | Phone: | | | | | ANES/STEROID | [address] | [phone] | | | | | FORAMEN | Phone: | Fax: | | | | | LUMBAR/SACRA | [phone] | [phone] | | | | | L W IMG | Fax: | | | | | | GUIDE ,1 | [phone] | | | | | | LEVEL RI | | | | | | | TRIAMCINOLON | | | | | | | E ACET INJ | | | | | | | NOS, 10 MG | | | | | | | Appt: 08/09 | | | | | | | -Left L2-3 | | | | | | | TFESI- | | | | | | | Referral | | | | | | | from | | | | | | | Charles Diaz | | | +--------+--------+ + + + + Encounter Details +--------+ + + + + | Date | Type | Department | Care Team | Description | +--------+ + + + + | 08/09/ | Hospital | [facility] | Eric, | Lumbar radiculopathy | | 2017 | Encounter | MED CTR XRAY [address] | [address] | | | | | [address] [place] | [place], | | | | | [place] [address] | [place] [address] | | | | | [phone] | [phone] | | | | | | | | | | | | [facility] | | +--------+ + + + [...] +---------+ + + | Blood Pressure | 118/69 | 08/09/2017 3:26 PM | | | | | PDT [...] mg by mouth | | 0 | 04/10/20 | | | capsule | 3 times [...] mg by mouth | | 0 | 04/10/20 | | | (PRILOSEC) 20 mg | [...] +---------+ + + | propranolol | Take 120 mg by mouth | | 0 | 07/22/20 | | | (INDERAL LA) 120 mg | Daily. | | | 17 | 8 | | SR capsule | | | [...] [place] | | | | | | [address] | | | | | | | | +--------+---------+ + + + documented as of this encounter Procedures + +--------+ + + + | Procedure Name | Priori | Date/Time | Associated Diagnosis | Comments | | | ty | | | | + +--------+ + + + | FL EPIDURAL STEROID | Routin | 08/09/2017 | Lumbar | Results for this | | INJECTION LUMBAR | e | 3:15 PM | radiculopathy | procedure are in the | | TRANSFORAMINAL | | PDT | | results section. | + +--------+ + + + documented in this encounter Results FL KELLY Lumbar Transforaminal (08/09/2017 3:15 PM PDT) + + | Specimen | + + | | + + + + + | Narrative | Performed At | + + + | 08/09/2017 | [facility] | | Transforaminal Epidural Steroid InjectionDiagnosis: Lumbar | | | radiculopathyICD-10 Code M54.16 Uziel Rea presents to the | | | fluoroscopy suite for a fluoroscopically-guided left L2-L3 | | | transforaminal epidural steroid injection as part of conservative | | | management for chronic pain with lumbar radiculopathy and degenerative | | | disk disease. After informed consent was obtained, the [...] + + | Performing | Address | City/State/[facility] | Phone Number | | Organization | [...] dexamethasone (PF) 10 mg/mL | Given | 08/09/20 | 10 mg | | | | injection 10 mg 10 mg, Other, | | 17 3:30 | | | | | ONCE, Tue08/09/17 at 1530, For 1 | | PM PDT | | | | | dose | | | | | | + +--------+ +-------+------+------+ +---+---+ | | | +---+---+ + +-------+ +-------+---+---+ | iohexol (OMNIPAQUE 300) 300 | Given | 08/09/20 | 4 mLs | | | | mg/mL injection 4 mL 4 mL, | | 17 3:25 | | | | | Other, ONCE, e 08/09/17 at | | PM PDT | | | | | 1530, For 1 dose | | | | | | + +-------+ +-------+---+---+ +---+---+ | | | +---+---+ + +-------+ +-------+---+---+ | lidocaine (PF) 1% injection 2 | Given | 10/10/20 | 2 mLs | | | | mL 2 mL, Other, ONCE, Tue | | 17 3:30 | | | | | 10/17 at 1530, For 1 dose | | PM PDT | | | | + +-------+ +-------+---+---+ +---+---+ | | | +---+---+ + +-------+ +-------+---+---+ | lidocaine buffered 1% injection | Given | 10/10/20 | 5 mLs | | | | 5 mL 5 mL, Other, ONCE, Tue | | 17 3:20 | | | | | 10/17 at 1530, For 1 dose | | PM PDT | | | | + +-------+ +-------+---+---+ +---+---+ | | | +---+---+ documented in this encounter"
--- OUTSIDE RECORDS SUMMARY | ~2019-09-09 | XMS | Encounter Summary ---
Demographics + + + | Address | [address] | | | [place] [address] | + + + | Home Phone | | + + + | Preferred Language | Unknown | + + + | Marital Status | | + + + | Spiritism Affiliation | Unknown | + + + | Race | Unknown | + + + | Ethnic Group | Unknown | + + + Author + + + | Author | [facility] | | | and [place]ana | + + + | Organization | [facility] | [...] [place], [place] | | | | | [address] | | + + + + + | Mao Rea | ECON | Unknown | | + + + + + | Meredith Rea | ECON | Unknown | | + + + + + | Iqra Medina | ECON | [address] | | | | | [place], [place] | | | | | [address] | | + + + + + | Maldonado Rea | ECON | Unknown | | + + + + + Care Team Providers + +------+ + | Care Window Shade Cutter Name | Role | Phone | + +------+ + | Sherie Vela PA-C | PCP | | + +------+ + Encounter Details +--------+ + + + + | Date | Type | Department | Care Team | Description | +--------+ + + + + | 01/08/ | Imaging | [facility] | Provider, | | | 2019 | Exam | MED CTR EXTERNAL | MD [address] | | | | | IMAGING | [place] | | | | | [phone] | [place] [address] | | +--------+ + + + + [...] [place] | | | | | | [id number] | | | | | | | | +--------+---------+ + + + documented as of this encounter Procedures + +--------+ + + + | Procedure Name | Priori | Date/Time | Associated Diagnosis | Comments | | | ty | | | | + +--------+ + + + | CT ABDOMEN PELVIS W | Routin | 12/21/2018 | | Results for this | | CONTRAST | e | 10:10 AM | | procedure are in the | | | | PST | | results section. | + +--------+ + + + documented in this encounter Results CT Abdomen Pelvis w Contrast (12/21/2018 10:10 AM PST) + + | Specimen | [...]
--- OUTSIDE RECORDS SUMMARY | ~2019-09-09 | XMS | Encounter Summary ---
Demographics + + + | Address | [address] | | | [place] [address] | + + + | Home Phone | | + + + | Preferred Language | Unknown | + + + | Marital Status | | + + + | Muslim Affiliation | Unknown | + + + | Race | Unknown | + + + | Ethnic Group | Unknown | + + + Author + + + | Author | [facility] | | | and Carlosana | + + + | Organization | 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 documented in this encounter Progress Notes Ender Mora PA - 11/27/2014 8:33 AM PSTFormatting of this note might be differen t from the original. 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 CRANIAL NERVES: II: Acuity is intact. [...] [place] | | | | | | [id number] | | | | | | | [...]
--- OUTSIDE RECORDS SUMMARY | ~2019-09-09 | XMS | Encounter Summary ---
Demographics + + + | Address | [address] | | | [place] [address] | + + + | Home Phone | | + + + | Preferred Language | Unknown | + + + | Marital Status | | + + + | Congregational Affiliation | Unknown | + + + | Race | Unknown | + + + | Ethnic Group | Unknown | + + + Author + + + | Author | [facility] | | | and [place]ana | + + + | Organization | [facility] | | [...] [place], [place] | | | | | [address] | | + + + + + | Mao Rea | ECON | Unknown | | + + + + + | Meredith Rea | ECON | Unknown | | + + + + + | Irqa Medina | ECON | [address] | | | | | [place], [place] | | | | | [address] | | + + + + + | Maldonado Rea | ECON | Unknown | | + + + + + Care Team Providers + +------+ + | Care Senior Tax Accountant Name | Role | Phone | + +------+ + | Sherie Vela PA-C | PCP | | + +------+ + Reason for Visit + + + | Reason | Comments | + + + | Patient Education | | + + + Encounter Details +--------+ + + + + | Date | Type | Department | Care Team | Description | +--------+ + + + + | 04/10/ | Telephone | [facility] [place] | Jarvis Dawson, | Patient Education | | 2019 | | NEUROLOGY [place] | [address] | | | | | [address], | [place] [address] | | | | | [address] [place] | [place] | | | | | [place] [address] | [address] | | | | | [phone] | | | +--------+ + + + [...] [place] | | | | | | [address] | | | | | | | | +--------+---------+ + + + documented as of this encounter Visit Diagnoses Not on filedocumented in this encounter"
--- OUTSIDE RECORDS SUMMARY | ~2019-09-09 | XMS | Encounter Summary ---
Demographics + + + | Address | [address] | | | [place] [address] | + + + | Home Phone [...] + + + | Organization | [facility] | | | and Carlosana [...] [place], [place] | | | | | [address] | | + + + + + | Mao Rea | ECON | Unknown | | + + + + + | Meredith Rea | ECON | Unknown | | + + + + + | Iqra Medina | ECON | [address] | | | | | [place], [place] | | | | | [address] | | + + + + + | Maldonado Rea | ECON | Unknown | | + + + + + Care Team Providers + +------+ + | Care Door Patcher Name | Role | Phone | + +------+ + | Sherie Vela PA-C | PCP | | + +------+ + Encounter Details +--------+ + + + + | Date | Type | Department | Care Team | Description | +--------+ + + + + | 07/24/ | Orders Only | [facility] [place] | Luis Carlos Jiménez | Lumbar radiculopathy | | 2018 | | PHYSIATRY [address] | TMD [address] | (Primary Dx) | | | | [place], | [place] | | | | | [place] [address] | [address] | | | | | [phone] | | | +--------+ + + + [...] | +--------+---------+ + + + | 12/07/ Office | Neurology | Abundio Khanna MD | | | 2020 | Visit | | [address] | | | | | | [place] | | | | | | [address] | | | | | | | | +--------+---------+ + + + documented as of this encounter Results [place] KELLY [...] + + | Performing | Address | City/State/Rustcode | Phone Number | | Organization | [...]
--- OUTSIDE RECORDS SUMMARY | ~2019-09-09 | XMS | Encounter Summary ---
Demographics + + + | Address | [address] | | | [place] [address] | + + + | Home Phone [...] | [facility] | | | and Carlosana [...] [place], [place] | | | | | [address] | | + + + + + | Mao Rea | ECON | Unknown | | + + + + + | Meredith Rea | ECON | Unknown | | + + + + + | Iqra Medina | ECON | [address] | | | | | [place], [place] | | | | | [address] | | + + + + + | Maldonado Rea | ECON | Unknown | | + + + + + Care Team Providers + +------+ + | Care Receivable Executive Name | Role | Phone | + [...] | | | lordosis | | [address] | | | | | (acquired) | | [place], | | | | | Other | | [place] [address] | | | | | lordosis | | Phone: | | | | | (acquired) | | [phone] | | | | | Procedures | | Fax: | | | | | [place] | | [phone] | | | | | ARTHRODESIS | [...] + + | 12/02/ | Hospital | [facility] | Koby George MD | Cancer (HCC) | | 2015 - | Encounter | MED CTR SURGICAL | [address] | (Primary Dx); | | | | [address] | [place] [address] | Degenerative disc | | 12/05/ | | [place] [address] | [phone] | disease, lumbar; | | 2014 | | [phone] | | Depression; | | | | [...] might be differen t from the original. [facility] NEUROSURGERY DISCHARGE SUMMARY Patient Name: Uziel Rea [...] Clifford PA - 12/03/2014 7:28 AM PST [facility] PROGRESS NOTE Pt. Name/Age/: Uziel Rosen Rona 69 y.o. 1945 Med. Record Number: [id number] Date of admission: 12/02/2014 Subjective: The patient [...] signed by: Ender Mora, 12/03/2014 7:28 [facility] documented in th is encounter Plan [...] + + + | UNIT # | [id number] | | [facility] | | | | [...] St | [place] | | | [facility] | | [address] | | | - BLOOD BANK | [...] + + + | UNIT # | [id number] | | [facility] | | | | [...] ST. | [address] | [place], [place] | | | [facility] | | [address] | | | - BLOOD BANK | [...] + | MISCELLANEOUS LAB | | | [phone] | + +---------+ + + | MISCELANIOUS LAB | | | [phone] | + +---------+ + + CBC no [...] + | [facility] | [address] | [place], [place] | [phone] | | [facility] | | [address] | | | - LABORATORY | | | | + + + + + | [facility] | [address] | [place], [place] | | | [facility] | | [address] | | | - LABORATORY | | [...] St | [place] | | | [facility] | | [address] | | | - BLOOD BANK | [...] [address] | [place] | [phone] | | [facility] | | [address] | | | - LABORATORY | | | | + + + + + | [facility] | [address] | [place] | | | [facility] | | [address] | | | - LABORATORY | | [...] [address] | [place] | [phone] | | [facility] | | [address] | | | - LABORATORY | | | | + + + + + | [facility] | [address] | [place] | | | [facility] | | [address] | | | - LABORATORY | | [...] | | | | | | use [place] 10/325 if ordered. If | | | [...]
--- OUTSIDE RECORDS SUMMARY | ~2019-09-09 | XMS | Encounter Summary ---
Demographics + + + | Address | [address] | | | [place] [address] | + + + | Home Phone | | + + + | Preferred Language | Unknown | + + + | Marital Status | | + + + | Catholic Affiliation | Unknown | + + + | Race | Unknown | + + + | Ethnic Group | Unknown | + + + Author + + + | Author | [facility] | | | and Carlosana | + + + | Organization | [facility] | | | and Carlosana | [...] [place], [place] | | | | | [address] | | + + + + + | Mao Rea | ECON | Unknown | | + + + + + | Meredith Rea | ECON | Unknown | | + + + + + | Iqra Medina | ECON | [address] | | | | | [place], [place] | | | | | [address] | | + + + + + | Maldonado Rea | ECON | Unknown | | + + + + + Care Team Providers + +------+ + | Care Management Internship Name | Role | Phone | + [...] 2018 | | NEUR[facility]Y [place] | [facility] | Appointment | | | | [address] [facility], | [place] [address] | | | | | [address] [place] | [place], [place] | | | | | [place] [address] | [address] | | | | | [phone] | | | +--------+ + + + [...] [place] | | | | | | [address] | | | | | | | | +--------+---------+ + + + documented as of this encounter Visit Diagnoses Not on filedocumented in this encounter"
--- OUTSIDE RECORDS SUMMARY | ~2019-09-09 | XMS | Encounter Summary ---
Demographics + + + | Address | [address] | | | [place] [address] | + + + | Home Phone | | + + + | Preferred Language | Unknown | + + + | Marital Status | | + + + | Scientologist Affiliation | Unknown | + + + | Race | Unknown | + + + | Ethnic Group | Unknown | + + + Author + + + | Author | [facility] | | | and Carlosana | + + + | Organization | [facility] | | | and Carlosana [...] [place], [place] | | | | | [address] | | + + + + + | Mao Rea | ECON | Unknown | | + + + + + | Meredith Rea | ECON | Unknown | | + + + + + | Iqra Medina | ECON | [address] | | | | | [place], [place] | | | | | [address] | | + + + + + | Maldonado Rea | ECON | Unknown | | + + + + + Care Team Providers + +------+ + | Care Agency Sales Director Name | Role | Phone | [...] + + | Closed | Specialty | Rehabilitatio | Diagnoses | Samir, | [facility] | | | Services | n | Parkinson's | Jarvis Qui | Mahnaz | | | Required | | disease | MD 19 | Therapy 1025 | | | | | ([facility]) | [place] | [address] | | | | | Procedures | [place] [address] | [place], | | | | | BUILDING CONSTRUCTION CONTRACTOR | [address] [place] | [place] [address] | | | | | | [place], [place] | Phone: | | | | | | [address] | [phone] | | | | | | Phone: | Fax: | | | | | | [phone] | [phone] | | | | | | Fax: | | | | | | | [phone] | | +--------+ + + + + + Reason for Visit + + + | Reason | Comments | + + + | Referral | BUILDING CONSTRUCTION CONTRACTOR | + + + Encounter Details +--------+ + + + + | Date | Type | Department | Care Team | Description | +--------+ + + + + | 02/08/ | Telephone | [facility] | Jarvis Dawson, | Referral (BUILDING CONSTRUCTION CONTRACTOR) | | 2019 | | NEUROLOGY [place] | [address] | | | | | [address], | [place] [address] | | | | | [address] [place] | [place] | | | | | [place] [address] | [address] | | | | | [phone] | | | +--------+ + + + [...] [place] | | | | | | [address] | | | | | | | | +--------+---------+ + + + + + +--------+ + + | Name | Type | Priori | Associated Diagnoses | Order Schedule | | | | ty | | | + + +--------+ + + | * [facility] [place] | Outpatient | Routin | Parkinson's | Ordered: 02/08/2019 | | Mahnaz Speech | Referral | e | disease (HCC) | | | Therapy - AMB | | | | | | Referral | | | | | + + +--------+ + + documented as of this encounter Visit Diagnoses + + | Diagnosis | + + | Parkinson's disease (HCC) - Primary Paralysis agitans | + + documented in this encounter"
--- OUTSIDE RECORDS SUMMARY | ~2019-09-09 | XMS | Encounter Summary ---
Demographics + + + | Address | [address] | | | [place] [address] | + + + | Home Phone | | + + + | Preferred Language | Unknown | + + + | Marital Status | | + + + | Restoration Affiliation | Unknown | + + + | Race | Unknown | + + + | Ethnic Group | Unknown | + + + Author + + + | Author | [facility] | | | and [place]ana | + + + | Organization | [facility] | | | and Carlosana [...] [place], [place] | | | | | [address] | | + + + + + | Mao Rea | ECON | Unknown | | + + + + + | Meredith Rea | ECON | Unknown | | + + + + + | Iqra Medina | ECON | [address] | | | | | [place], [place] | | | | | [address] | | + + + + + | Maldonado Rea | ECON | Unknown | | + + + + + Care Team Providers + +------+ + | Care Foster Winder Name | Role | Phone | + [...] | | | | Obstructive | Jarvis S, | | | | | | sleep | MD 19 | | | | | | apnea, adult | [place] | | | | | | Procedures | [place] | | | | | | DME: CPAP | [address] [place] | | | | | | | [place] | | | | | | | [address] | | | | | | | Phone: | | | | | | | [phone] | | | | | | | Fax: | | | | | | | [phone] | | +--------+--------+ + + + + [...] | | of adult | [place] | [facility] | | | | | | [place] [address] | [place] [address] | | | | | | [address] [place] | [address] [place] | | | | | | [place] | [place] | | | | | | [address] | [address] Phone: | | | | | | Phone: | [phone] | | | | | | [phone] | Fax: | | | | | | Fax: | [phone] | | | | | | [phone] | | +--------+ + + + + + Encounter Details +--------+---------+ + + + | Date | Type | Department | Care Team | Description | +--------+---------+ + + + | 09/25/ | Office | [facility] [place] [facility] | Jarvis Dawson, | Obstructive sleep | | 2018 | Visit | SLEEP DISORDER [address] | MD [facility] | apnea, adult | | | | [address] [place] | [place] [address] | (Primary Dx); REM | | | | [place] [address] | [place] | sleep behavior | | | | [phone] | [address] | disorder; Parkinson | | | | | | disease (HCC); | | | | | | Recurrent major | | | | | | depressive disorder, | | | | | | in partial | | | | | | remission ([facility]); | | | | | | PTSD (post-traumatic | | | | | | stress disorder); | | | | | | 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 [facility] SLEEP FOLLOW UP NOTE Primary Care Physician: [...] CPAP therapy. CPAP titration [facility] performed at [place] [facility] [place] showed that he was not able to [...] (HCC) 5. 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 Essential tremor 8. Periodic limb movements of sleep RECOMMENDATIONS: 1. Ambien 5 mg at bedtime for insomnia related to CPAP therapy 2. CPAP auto 5-15 cm H2O with nasal interface and EPR 0-3 3. Self CPAP desensitization education provided. The patient is not able to come to [place] from [place] regularly. 4. Return to clinic in 6 weeks for CPAP follow-up, sooner if the need arises. Return in about 6 weeks (around 11/06/2018) for CPAP follow up at [place]. I spent at least 25 minutes face [...] a CPAP desensitization to be performed at [facility] in [place]. However he never got an appointment there and after mul tiple calls, the patient's called my office in [place]. Therefore, the patient is returning for follow-up [...] AND NEUROLOGY HISTORY: PCP: Dr. Dane Rosen Rona is a 73 y.o. RHD male with history of major depression treated chronically with atypical antipsychotics and lithium, chronic immunomodulation for RA, LEANDRO, COPD, who w as referred to me by Sherie Vela PA-C for evaluation of Parkinson's disease. I also foll owed the patient at [facility] sleep clinic for LEANDRO and RBD. 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) Lives with: has 3 grown children (son in [place], daughter in [place]) [facility] - 02/09/18 - [facility] Impression: LEANDRO, [...] Anxiety; Arthritis; Asthma, exercise amish frandy; Cancer (HCC) (2003); Chronic major depressive disorder, recurrent episode ([facility]); Chroni c pain; Colon cancer (); COPD (chronic obstructive pulmonary disease) (HCC); Degenerative disc disease, lumbar; Depression; GERD (gastroesophageal [...] Tuesday, Tuesday, and Tuesday, Disp: , Rfl: [place]-3 Fatty Acids (FISH OIL) 1200 MG CAPS, [...] [place] | | | | | | [id number] | | | | | | | | +--------+---------+ + + + + +------+--------+ + + | Name | [...] Posttraumatic stress disorder | + + | 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
--- OUTSIDE RECORDS SUMMARY | ~2019-09-09 | XMS | Encounter Summary ---
Demographics + + + | Address | [address] | | | [place] [address] | + + + | Home Phone | | + + + | Preferred Language | Unknown | + + + | Marital Status | | + + + | Adventist Affiliation | Unknown | + + + | Race | Unknown | + + + | Ethnic Group | Unknown | + + + Author + + + | Author | [facility] | | | and [place] | + + + | Organization | [facility] | [...] [place], [place] | | | | | [address] | | + + + + + | Mao Rea | ECON | Unknown | | + + + + + | Meredith Rea | ECON | Unknown | | + + + + + | Iqra Medina | ECON | [address] | | | | | [place], [place] | | | | | [address] | | + + + + + | Maldonado Rea | ECON | Unknown | | + + + + + Care Team Providers + +------+ + | Care Life Tester [employer] Name | Role | Phone | + +------+ + | Brandon Juarez MD | PCP | | + +------+ + Encounter Details +--------+ + + + + | Date | Type | Department | Care Team | Description | +--------+ + + + + | 06/17/ | [facility] | [facility] | Logan Soto, | Lumbalgia; Lumbar | | 2013 | Encounter | MED CTR XRAY [address] | [address] | radiculopathy; | | | | [place] | [place] | Lumbar spondylosis; | | | | [place] [address] | [address] | Left leg weakness; | | | | [phone] | | Lower extremity | | | [...] [place] | | | | | | [address] | | | | | | | [...] + | MISCELLANEOUS LAB | | | [phone] | + +---------+ + + | MISCELANIOUS LAB | | | [phone] | + +---------+ + + documented in [...]
--- OUTSIDE RECORDS SUMMARY | ~2019-09-09 | XMS | Encounter Summary ---
Demographics + + + | Address | [address] | | | [place] [address] | + + + | Home Phone | | + + + | Preferred Language | Unknown | + + + | Marital Status | | + + + | Taoist Affiliation | Unknown | + + + | Race | Unknown | + + + | Ethnic Group | Unknown | + + + Author + + + | Author | [facility] | | | and [place] | + + + | Organization | [facility] | | | and [place] | [...] [place], [place] | | | | | [address] | | + + + + + | Moa Rea | ECON | Unknown | | + + + + + | Meredith Rea | ECON | Unknown | | + + + + + | Iqra Medina | ECON | [address] | | | | | [place], [place] | | | | | [address] | | + + + + + | Maldonado Rea | ECON | Unknown | | + + + + + Care Team Providers + +------+ + | Care Assistant Spa Director Name | Role | Phone | [...] | SR | | | | | [phone] | | | +--------+ + + + [...] [place] | | | | | | [address] | | | | | | | | +--------+---------+ + + + documented as of this encounter Visit Diagnoses Not on filedocumented in this encounter
--- OUTSIDE RECORDS SUMMARY | ~2019-09-09 | XMS | Encounter Summary ---
Demographics + + + | Address | [address] | | | [place] [address] | + + + | Home Phone | | + + + | Preferred Language | Unknown | + + + | Marital Status | | + + + | Presybeterian Affiliation | Unknown | + + + | Race | Unknown | + + + | Ethnic Group | Unknown | + + + Author + + + | Author | [facility] | | | and [place] | + + + | Organization | [facility] | | | and [place]ana [...] [place], [place] | | | | | [address] | | + + + + + | Mao Rea | ECON | Unknown | | + + + + + | Meredith Rea | ECON | Unknown | | + + + + + | Iqra Medina | ECON | [address] | | | | | [place], [place] | | | | | [address] | | + + + + + | Maldonado Rea | ECON | Unknown | | + + + + + Care Team Providers + +------+ + | Care Wool Shearer Name | Role | Phone | + [...] | PHYSIATRY [address] | [address] | low back pain with | | | | [place], | [place], [place] | left-sided sciatica | | | | [place] [address] | [address] | (Primary Dx); Lumbar | | | | [phone] | | radiculopathy; | | | | [...] disease | | | | | | ([facility]); Parkinsonian | | | | | | tremor ([facility]) | +--------+---------+ + + + Social History [...] Your injection will be performed a t [facility]. Please take note [...] of the procedure you must provide a ambulance driver paramedic to take you home. For all procedur es it is recommended that someone else drive you home. documented in this encounter Progress Notes Logan Soto MD - 07/17/2018 10:20 AM PDTFormatting of this note might be different fro m the original. Logan Soto MD [address] [facility] [address] [place], [place] [address] FAX: PHYSICAL MEDICINE AND REHABILITATION H&P CHIEF [...] tablet Take by mouth 2 times daily. [place]-3 Fatty Acids (FISH OIL) 1200 MG CAPS [...] Extension 5 5 Finger Abduction 5 5 Perinatal Specialist Strength 5 5 Hip Flexion 5 5 [...] [place] | | | | | | [address] | | | | | | | [...]
--- OUTSIDE RECORDS SUMMARY | ~2019-09-09 | XMS | Encounter Summary ---
Demographics + + + | Address | [address] | | | [place] [address] | + + + | Home Phone | | + + + | Preferred Language | Unknown | + + + | Marital Status | | + + + | Oriental Orthodox Affiliation | Unknown | + + + | Race | Unknown | + + + | Ethnic Group | Unknown | + + + Author + + + | Author | [facility] | | | and [place]ana | + + + | Organization | [facility] | | | and [...] [place], [place] | | | | | [address] | | + + + + + | Mao Rea | ECON | Unknown | | + + + + + | Meredith Rea | ECON | Unknown | | + + + + + | Iqra Medina | ECON | [address] | | | | | [place], [place] | | | | | [address] | | + + + + + | Maldonado Rea | ECON | Unknown | | + + + + + Care Team Providers + +------+ + | Care Sweat Band Separator Name | Role | Phone | + [...] Changes | NEUROSURGERY [address] | S, Paint Laboratory Technician | | | | | [address] | | | | | | [place] | | | | | | [address] | | | | | | [phone] | | | +--------+ + + + [...] [place] | | | | | | [id number] | | | | | | | | +--------+---------+ + + + documented as of this encounter Visit Diagnoses Not on filedocumented in this encounter"
--- OUTSIDE RECORDS SUMMARY | ~2019-09-09 | XMS | Encounter Summary ---
Demographics + + + | Address | [address] | | | [place] [address] | + + + | Home Phone [...] | Author | [facility] | | | and [place]ana | + + + | Organization | [facility] | | | and [...] [place], [place] | | | | | [address] | | + + + + + | Mao Rea | ECON | Unknown | | + + + + + | Meredith Rea | ECON | Unknown | | + + + + + | Iqra Medina | ECON | [address] | | | | | [place], [place] | | | | | [address] | | + + + + + | Maldonado Rea | ECON | Unknown | | + + + + + Care Team Providers + +------+ + | Care Biomechanical Engineer Name | Role | Phone | [...] | fusion | VIRY Ramos | [address] | | | | n | 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[place], | | | | | sis of | [address] | [place] [address] | | | | | lumbar spine | [address] | Phone: | | | | | Flat back | [place], | [phone] | | | | | syndrome | [place] [address] | Fax: | | | | | Lumbar | Phone: | [phone] | | | | | stenosis | [phone] | | | | | | with | Fax: | | | | | | neurogenic | [phone] | | | | | | claudication [...] | 05/25/ | Office | [facility] | Ender Mora | S/P lumbar fusion | | 2017 | Visit | NEUROSURGERY [address] | [address] | (Primary Dx); | | | | [address] | [address] | Pseudoarthrosis of | | | | [place], [place] | [place] | lumbar spine; Flat | | | | [address] | [address] | back syndrome; | | | | [phone] | | Lumbar stenosis with | | [...] from the original. Ender Mora PA-C [address] [id number] FAX: NEUROSURGERY FOLLOW-UP CHIEF COMPLAINT: Chief Complaint [...] Diagnosis Date Anxiety Arthritis rheumatoid Cancer (HCC) 2004 colon cancer Degenerative disc disease, lumbar Depression [...] Dr. Jiménez. 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
--- OUTSIDE RECORDS SUMMARY | ~2019-09-09 | XMS | Encounter Summary ---
Demographics + + + | Address | [address] | | | [place] [address] | + + + | Home Phone | | + + + | Preferred Language | Unknown | + + + | Marital Status | | + + + | Gnosticism Affiliation | Unknown | + + + | Race | Unknown | + + + | Ethnic Group | Unknown | + + + Author + + + | Author | [facility] | | | and [place] | + + + | Organization | [facility] | | | and [place] | + + + | Address | Unknown | + + + | Phone | Unavailable | + + + Support + + + + + | Name | Relationship | Address | Phone | + + + + + | Henny Rea | ECON | [address] | | | | | [place], [place] | | | | | [address] | | + + + + + | Mao Rea | ECON | Unknown | | + + + + + | Meredith Rea | ECON | Unknown | | + + + + + | Iqra Medina | ECON | [address] | | | | | [place], [place] | | | | | [address] | | + + + + + | Maldonado Rea | ECON | Unknown | | + + + + + Care Team Providers + +------+ + | Care Behavioral Geneticist Name | Role | Phone | + +------+ + | Brandon Juarez MD | PCP | | + +------+ + Encounter Details +--------+ + + + + | Date | Type | Department | Care Team | Description | +--------+ + + + + | 12/02/ | Orders Only | [facility] [place] | Koby George MD | Lumbar radiculopathy | | 2017 | | NEUROSURGERY [address] | [address] | (Primary Dx); | | | | [address] | [place] [address] | Degenerative disc | | | | [place] | [phone] | disease, lumbar; | | | | [address] | | Lumbar stenosis with | | | | [phone] | | neurogenic | | | | | | claudication; | | | | | | Foraminal stenosis | | | | | | of lumbar region; | | | | | | 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; | | | | | | Facet arthropathy, | | | | | | lumbar; S/P lumbar | | | | | | fusion; | | | | | | Pseudoarthrosis of | | | | | | lumbar spine; | | | | | | Synovial cyst of | | | | | | lumbar facet joint | +--------+ + + + + Social [...] [place] | | | | | | [address] | | | | | | | | +--------+---------+ + + + documented as of this encounter Visit Diagnoses + + | Diagnosis | + + | Lumbar radiculopathy - Primary Thoracic or lumbosacral neuritis or radiculitis, | | unspecified | + + | Degenerative disc disease, [...] spondylosis without myelopathy | + + | S/P lumbar fusion Arthrodesis status | + + | 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
--- OUTSIDE RECORDS SUMMARY | ~2019-09-09 | XMS | Encounter Summary ---
Demographics + + + | Address | [address] | | | [place] [address] | + + + | Home Phone [...] | + + + | Organization | [facility] [...] [place], [place] | | | | | [address] | | + + + + + | Mao Rea | ECON | Unknown | | + + + + + | Meredith Rea | ECON | Unknown | | + + + + + | Iqra Medina | ECON | [address] | | | | | [place], [place] | | | | | [address] | | + + + + + | Maldonado Rea | ECON | Unknown | | + + + + + Care Team Providers + +------+ + | Care Assistant Men'S Lacrosse Coach Name | Role | Phone | + [...] | MED CTR EXTERNAL | MD [address] | | | | | IMAGING | [address] | | | | | [phone] | [place] [address] | | +--------+ + + + + [...] [place] | | | | | | [id number] | | | | | | | | +--------+---------+ + + + documented as of this encounter Procedures + +--------+ + + + | Procedure Name | Priori | Date/Time | Associated Diagnosis | Comments | | | ty | | | | + +--------+ + + + | XR LUMBAR SPINE 2 [place] | Routin | 10/26/2018 | | Results for this | | 3 VW | e | 2:20 PM | | procedure are in the | | | | PST | | results section. | + +--------+ + + + documented in this encounter Results XR Lumbar Spine 2 or 3 Vw (10/26/2018 2:20 PM PST) + + | Specimen | [...]
--- OUTSIDE RECORDS SUMMARY | ~2019-09-09 | XMS | Encounter Summary ---
Demographics + + + | Address | [address] | | | [place] [address] | + + + | Home Phone | | + + + | Preferred Language | Unknown | + + + | Marital Status | | + + + | Adventist Affiliation | Unknown | + + + | Race | Unknown | + + + | Ethnic Group | Unknown | + + + Author + + + | Author | [facility] | | | and [place] | + + + | Organization | [facility] | | | and [place] [...] [place], [place] | | | | | [address] | | + + + + + | Mao Rea | ECON | Unknown | | + + + + + | Meredith Rea | ECON | Unknown | | + + + + + | Iqra Medina | ECON | [address] | | | | | [place], [place] | | | | | [address] | | + + + + + | Maldonado Rea | ECON | Unknown | | + + + + + Care Team Providers + +------+ + | Care Development Technician Name | Role | Phone | + +------+ + | Sherie Vela PA-C | PCP | | + +------+ + Reason for Visit + + + | Reason | Comments | + + + | Imaging Only | 1Y PO XR | + + + Encounter Details +--------+ + + + + | Date | Type | Department | Care Team | Description | +--------+ + + + + | 04/10/ | Telephone | [facility] [place] | Ender Mora | Imaging Only (1Y PO | | 2018 | | NEUROSURGERY [address] | [address] | XR) | | | | [address] | [address] | | | | | [place], [place] | [place], [place] | | | | | [address] | [address] | | | | | [phone] | | | +--------+ + + + [...] [place] | | | | | | [address] | | | | | | | | +--------+---------+ + + + documented as of this encounter Visit Diagnoses Not on filedocumented in this encounter"
--- OUTSIDE RECORDS SUMMARY | ~2019-09-09 | XMS | Encounter Summary ---
Demographics + + + | Address | [address] | | | [place] [address] | + + + | Home Phone | | + + + | Preferred Language | Unknown | + + + | Marital Status | | + + + | Anabaptist Affiliation | Unknown | + + + | Race | Unknown | + + + | Ethnic Group | Unknown | + + + Author + + + | Author | [facility] | | | and [place] | + + + | Organization | [facility] | | | and [...] [place], [place] | | | | | [address] | | + + + + + | Mao Rea | ECON | Unknown | | + + + + + | Meredith Rea | ECON | Unknown | | + + + + + | Iqra Medina | ECON | [address] | | | | | [place], [place] | | | | | [address] | | + + + + + | Maldonado Rea | ECON | Unknown | | + + + + + Care Team Providers + +------+ + | Care Compliance Paralegal Name | Role | Phone | + +------+ + | Sherie Vela PA-C | PCP | | + +------+ + Encounter Details +--------+ + + + + | Date | Type | Department | Care Team | Description | +--------+ + + + + | 07/22/ | Orders Only | [facility] [place] | Luis Carlos Jiménez | Lumbar radiculopathy | | 2017 | | PHYSIATRY [address] | T[address] | (Primary Dx) | | | | [place], | [place] | | | | | [place] [address] | [address] | | | | | [phone] | | | +--------+ + + + [...] [place] | | | | | | [address] | | | | | | | [...] + + | Performing | Address | City/State[facility] | Phone Number | | Organization [...]
--- OUTSIDE RECORDS SUMMARY | ~2019-09-09 | XMS | Encounter Summary ---
Demographics + + + | Address | [address] | | | [place] [address] | + + + | Home Phone | | + + + | Preferred Language | Unknown | + + + | Marital Status | | + + + | Zoroastrianism Affiliation | Unknown | + + + | Race | Unknown | + + + | Ethnic Group | Unknown | + + + Author + + + | Author | [facility] | | | and [place] | + + + | Organization | [facility] | | | and [...] [place], [place] | | | | | [address] | | + + + + + | Mao Rea | ECON | Unknown | | + + + + + | Meredith Rea | ECON | Unknown | | + + + + + | Iqra Medina | ECON | [address] | | | | | [place], [place] | | | | | [address] | | + + + + + | Maldonado Rea | ECON | Unknown | | + + + + + Care Team Providers + +------+ + | Care Quality Eng Name | Role | Phone | + [...] | | | | apnea, adult | JENNAMENLOCarmelita | | | | | | Procedures | [place] COV[place]UBI[place] | | | | | | DME: CPAP | [address] | | | | | | | [place] | | | | | | | [address] | | | | | | | Phone: | | | | | | | [phone] | | | | | | | Fax: | | | | | | | [phone] | | +--------+--------+ + + + + [...] | | of adult | [place] | [facility] | | | | | | [place] [address] | [place] [address] | | | | | | [address] | [address] | | | | | | [place] | [place] | | | | | | [address] | [address] Phone: | | | | | | Phone: | [phone] | | | | | | [phone] | Fax: | | | | | | Fax: | [phone] | | | | | | [phone] | | +--------+ + + + + + Encounter Details +--------+---------+ + + + | Date | Type | Department | Care Team | Description | +--------+---------+ + + + | 09/25/ | Office | [facility] [place] [facility] | Jarvis Dawson, | Obstructive sleep | | 2018 | Visit | SLEEP DISORDER [address] | MD [address] [facility] | apnea, adult | | | | [address] [place] [place] | [place] [address] | (Primary Dx); REM | | | | [place] [address] | [place] | sleep behavior | | | | [phone] | [address] | disorder; Parkinson | | | | | | disease (HCC); | | | | | | Recurrent major | | | | | | depressive disorder, | | | | | | in partial | | | | | | remission ([facility]); | | | | | | PTSD (post-traumatic | | | | | | stress disorder); | | | | | | 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 [facility] SLEEP FOLLOW UP NOTE Primary Care [...] CPAP therapy. CPAP titration study performed at [facility] [place] showed that he was not able to [...] (HCC) 5. PTSD (post-traumatic stress disorder) 6. 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 Essential tremor 8. Periodic limb movements of sleep RECOMMENDATIONS: 1. Ambien 5 mg at bedtime for insomnia related to CPAP therapy 2. CPAP auto 5-15 cm H2O with nasal interface and EPR 0-3 3. Self CPAP desensitization education provided. The patient is not able to come to [place] from [place] regularly. 4. Return to clinic in 6 weeks for CPAP follow-up, sooner if the need arises. Return in about 6 weeks (around 11/06/2018) for CPAP follow up at [place]. I spent at least 25 minutes face [...] performed at [facility] in [place]. However he never got an appointment there and after mul tiple calls, the patient's called my office in [place]. Therefore, the patient is returning for follow-up [...] I also foll owed the patient at [facility] sleep clinic for LEANDRO and RBD. 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
--- OUTSIDE RECORDS SUMMARY | ~2019-09-09 | XMS | Encounter Summary ---
Demographics + + + | Address | [address] | | | [place] [address] | + + + | Home Phone [...] | Author | [facility] | | | and [place] | + + + | Organization | [facility] | | [...] [place], [place] | | | | | [address] | | + + + + + | Mao Rea | ECON | Unknown | | + + + + + | Meredith Rea | ECON | Unknown | | + + + + + | Iqra Medina | ECON | [address] | | | | | [place], [place] | | | | | [address] | | + + + + + | Maldonado Rea | ECON | Unknown | | + + + + + Care Team Providers + +------+ + | Care Switchbox Assembler Name | Role | Phone | + +------+ + PCP | Unavailable | + +------+ + Encounter Details +--------+ + + + + | Date | Type | Department | Care Team | Description | +--------+ + + + + | 07/27/ | Hospital | [facility] | | | | 1994 | Encounter | MED CTR GENERIC OP | | | | | | CONV DEPT [address] | | | | | | [place], | | | | | | [place] [address] | | | | | | [phone] | | | +--------+ + + + [...] [place] | | | | | | [address] | | | | | | | | +--------+---------+ + + + documented as of this encounter Visit Diagnoses Not on filedocumented in this encounter"
--- OUTSIDE RECORDS SUMMARY | ~2019-09-09 | XMS | Encounter Summary ---
Demographics + + + | Address | [address] | | | [place] [address] | + + + | Home Phone | | + + + | Preferred Language | Unknown | + + + | Marital Status | | + + + | Judaism Affiliation | Unknown | + + + | Race | Unknown | + + + | Ethnic Group | Unknown | + + + Author + + + | Author | [facility] | | | and [place] | + + + | Organization | [facility] | | [...] [place], [place] | | | | | [address] | | + + + + + | Mao Rea | ECON | Unknown | | + + + + + | Meredith Rea | ECON | Unknown | | + + + + + | Iqra Medina | ECON | [address] | | | | | [place], [place] | | | | | [address] | | + + + + + | Maldonado Rea | ECON | Unknown | | + + + + + Care Team Providers + +------+ + | Care Inventory Transcriber Name | Role | Phone | + +------+ + | Sherie Vela PA-C | PCP | | + +------+ + Reason for Visit + + + | Reason | Comments | + + + | Results, Imaging | | + + + Encounter Details +--------+ + + + + | Date | Type | Department | Care Team | Description | +--------+ + + + + | 02/23/ | Telephone | [facility] | Koby George MD | Results, Imaging | | 2018 | | NEUROSURGERY [address] | [address] | | | | | [address] | [place] [address] | | | | | [place] | [phone] | | | | | [address] | | | | | | [phone] | | | +--------+ + + + [...] [place] | | | | | | [address] | | | | | | | | +--------+---------+ + + + documented as of this encounter Visit Diagnoses Not on filedocumented in this encounter"
--- OUTSIDE RECORDS SUMMARY | ~2019-09-09 | XMS | Encounter Summary ---
Demographics + + + | Address | [address] | | | [place] [address] | + + + | Home Phone | | + + + | Preferred Language | Unknown | + + + | Marital Status | | + + + | Nondenominational Affiliation | Unknown | + + + | Race | Unknown | + + + | Ethnic Group | Unknown | + + + Author + + + | Author | [facility] | | | and [place] | + + + | Organization | [facility] | [...] [place], [place] | | | | | [address] | | + + + + + | Mao Rea | ECON | Unknown | | + + + + + | Meredith Rea | ECON | Unknown | | + + + + + | Iqra Medina | ECON | [address] | | | | | [place], [place] | | | | | [address] | | + + + + + | Maldonado Rea | ECON | Unknown | | + + + + + Care Team Providers + +------+ + | Care Geothermal Electrical Engineer Name | Role | Phone | + +------+ + | Brandon Juarez MD | PCP | | + +------+ + Encounter Details +--------+ + + + + | Date | Type | Department | Care Team | Description | +--------+ + + + + | 04/05/ | [facility] | [facility] | Ender Mora | S/P lumbar fusion | | 2017 | Encounter | MED CTR XRAY [address] | [address] | | | | | [place] | [address] | | | | | [place] [address] | [place], [place] | | | | | [phone] | [address] | | | | | [...] mouth | 240 mL | 3 | 04/05/20 | | | mL | 2 times [...] 0.5-2 tablets | 120 | 0 | 04/05/20 | | | TABSIndications: S/P | by mouth every 4 | tablet | | 17 | 7 | | lumbar fusion | hours as [...] [place] | | | | | | [address] | | | | | | | | +--------+---------+ + + + documented as of this encounter Procedures + +--------+ + + + | Procedure Name | Priori | Date/Time | Associated Diagnosis | Comments | | | ty | | | | + +--------+ + + + | XR LUMBAR SPINE 2 [place] | Routin | 04/05/2017 | S/P lumbar fusion | Results for this | | 3 VW | e | 12:15 PM | | procedure are in the [...] + | [address] | [address] | [place], [place] | [phone] | | [facility] | | [address] | | | - IMAGING | | | | + + + + + documented in this encounter Visit Diagnoses + + | Diagnosis | + + | S/P lumbar fusion Arthrodesis status | + + documented in this encounter"
--- OUTSIDE RECORDS SUMMARY | ~2019-09-09 | XMS | Encounter Summary ---
Demographics + + + | Address | [address] | | | [place] [address] | + + + | Home Phone | | + + + | Preferred Language | Unknown | + + + | Marital Status | | + + + | Orthodoxy Affiliation | Unknown | + + + | Race | Unknown | + + + | Ethnic Group | Unknown | + + + Author + + + | Author | [facility] | | | and [place] | + + + | Organization | [facility] | | | and [...] [place], [place] | | | | | [address] | | + + + + + | Mao Rea | ECON | Unknown | | + + + + + | Meredith Rea | ECON | Unknown | | + + + + + | Iqra Medina | ECON | [address] | | | | | [place], [place] | | | | | [address] | | + + + + + | Maldonado Rea | ECON | Unknown | | + + + + + Care Team Providers + +------+ + | Care Operational Trainer Name | Role | Phone | + +------+ + | Brandon Juarez MD | PCP | | + +------+ + Encounter Details +--------+ + + + + | Date | Type | Department | Care Team | Description | +--------+ + + + + | 12/03/ | Episode | [facility] [place] | Emily Padilla | | | 2017 | Changes | NEUROSURGERY [address] | S, Fws Faculty Assistant | | | | | [address] | | | | | | [place] | | | | | | [address] | | | | | | [phone] | | | +--------+ + + + [...] [place] | | | | | | [id number] | | | | | | | | +--------+---------+ + + + documented as of this encounter Visit Diagnoses Not on filedocumented in this encounter"
--- OUTSIDE RECORDS SUMMARY | ~2019-09-09 | XMS | Encounter Summary ---
Demographics + + + | Address | [address] | | | [place] [address] | + + + | Home Phone | | + + + | Preferred Language | Unknown | + + + | Marital Status | | + + + | Baptist Affiliation | Unknown | + + + | Race | Unknown | + + + | Ethnic Group | Unknown | + + + Author + + + | Author | [facility] | | | and Carlosana | + + + | Organization | [facility] | | | and Carlosana [...] [place], [place] | | | | | [address] | | + + + + + | Mao Rea | ECON | Unknown | | + + + + + | Meredith Rea | ECON | Unknown | | + + + + + | Iqra Medina | ECON | [address] | | | | | [place], [place] | | | | | [address] | | + + + + + | Maldonado Rea | ECON | Unknown | | + + + + + Care Team Providers + +------+ + | Care Document Control Manager Name | Role | Phone | + +------+ + | Sherie Vela PA-C | PCP | | + +------+ + Reason for Visit + + + | Reason | Comments | + + + | Follow-up | Discuss lumbar CT | + + + Encounter Details +--------+---------+ + + + | Date | Type | Department | Care Team | Description | +--------+---------+ + + + | 08/03/ | Office | [facility] | Ender Mora | S/P lumbar fusion | | 2018 | Visit | NEUROSURGERY [address] | [address] | (Primary Dx); | | | | [address] | [address] | Spondylolisthesis of | | | | [place], [place] | [place] | lumbar region; | | | | [address] | [address] | Pseudoarthrosis of | | | | [phone] | | lumbar spine | +--------+---------+ + [...] + + + | Blood Pressure | 154/90 | 08/03/2018 9:51 AM | | | | | PDT | | + + + + + | Pulse | 51 | 08/03/2018 9:51 AM | | | | | PDT | | + + + + + | Temperature | - | - | | + + + + + | Respiratory Rate | 16 | 08/03/2018 9:51 AM | | | | | PDT | | + + + + + | Oxygen Saturation | - | - | | + + + + + | Inhaled Oxygen | - | - | | | Concentration | | | | + + + + + | Weight | 112 kg (246 lb 14.6 | 08/03/2018 9:51 AM | | | | oz) | PDT | | + + + + + | Height | 172.7 cm (5' 8") | 08/03/2018 9:51 AM | | | | | PDT | | + + + + + | Body Mass Index | 37.54 | 08/03/2018 9:51 AM | | | | | PDT [...] of this encounter Patient Instructions Patient Instructions Abigail Thornton, Railroad Hand - 08/03/2018 9:30 AM PDTIt was a pleasure to see you today. Here is what we discussed. - We would like to see you back for a follow up in about 5 months with x-rays prior. Please feel free to give our office a call if you have any concerns or worsening symptoms before t hen. - Let pain be your guide. If you are doing an activity that starts causing you pain back o ff and ease back into it slowly. We don't want you taking any risks that do not need to be taken. T documented in this encounter Progress Notes Ender Mora PA-C - 08/03/2018 9:30 AM PDTFormatting of this note might be differ ent from the original. Ender Mora PA-C [address] [facility] [place] [address] [place] [address] FAX: NEUROSURGERY FOLLOW-UP CHIEF COMPLAINT: Chief Complaint Patient presents with Follow-up Discuss lumbar CT HISTORY OF PRESENT ILLNESS: The patient is a 73 y.o. male that had a L5-S1 Transforaminal Lumbar Interbody Fusion, Hardware Revision @ L2-3, L3-4, L4-5 (Posterior Spine Lumbar) for b ack and left leg pain in January 2017. He returns with his neighbor and overall is doing okay . He complains of lower back pain that is more pronounced on his left side that radiates int o his left lower extremity. He is still taking nerve medications and denies taking pain me dication. He also continues to use his bone growth stimulator. He is currently seeing Dr. Jiménez for treatment of his pain. He had a left L2-L3 transf oraminal epidural steroid injection . The injection was completed on 03/24/18, with Dr. Benita reeves. He reports having approximately 70% improvement directly following the injection, an d 2 weeks following the injection they experienced approximately 80% improvement to the pain . He received a second injection on 07/24/2018 and states he is feeling improvement from it a s well. CURRENT MEDICATIONS: Current Outpatient Prescriptions Medication Sig Dispense Refill Ascorbic Acid (VITAMIN C WITH TOM HIPS) 500 MG tablet Take 500 mg by mouth Daily. Calcium Carb-Cholecalciferol (CALCIUM + D3) 600-800 MG-UNIT TABS Take 2 tablets by mout h Daily. Calcium Carbonate-Vit D-Min (CALCIUM 1200 PO) CHEW: Daily (Patient taking differently: Take by mouth Daily.) Cholecalciferol (VITAMIN D-3) 2000 units CAPS Take 2,000 Units by mouth 2 times daily. cyanocobalamin (VITAMIN B-12) 1000 MCG tablet Take 1,000 mcg by mouth Daily. DULoxetine (CYMBALTA) [address] capsule Take 30 mg by mouth Daily. fluticasone (FLOVENT HFA) 110 mcg/puff inhaler Inhale [...] Daily.) mycophenolate (CELLCEPT) 500 MG tablet Take 500 mg by mouth 2 times daily. 3 tablets on Mon, WED, and FRI Irvona-3 Fatty Acids (FISH OIL) 1200 MG CAPS [...] times daily. terbinafine (LAMISIL) 250 MG tablet Take 250 mg by mouth Daily. No current facility-administered medications for this visit. ALLERGIES: No Known Allergies SOCIAL HISTORY: The patient reports that he quit smoking about 37 years ago. His smoking use included Ciga rettes. He started smoking about 60 years ago. He has a 46.00 pack-year smoking history. He has never used smokeless tobacco. He reports that he uses drugs, including Marijuana, about 14 times per week. He reports that he does not drink alcohol. REVIEW OF SYSTEMS: GENERALLY: No fever, no night sweats, no anemia, + fatigue, + recent profound weight cassidy ges. EYES: No eye problems, no impaired sight, + use of corrective lenses, no eye injury, no do uble vision, no transient blindness. EARS, NOSE, AND THROAT: + changes in taste or smell, no hearing difficulty, + ringing in t he ears, no ear drainage, no ear injury, no dizziness, no voice changes, no difficulty swall owing, + significant snoring, + sleep apnea/CPAP, no sinus problems, no major dental work. NEUROLOGICALLY: Please see the review of systems discussed above in the history of present illness. PSYCHIATRIC: + depression, no difficulty sleeping, no anxiety, no bipolar disorder. CARDIOVASCULAR: No heart attacks, no heart murmur, no heart fluttering, no chest pain, no ankle swelling. LUNG DISEASE: + shortness of breath, no cough, no tuberculosis, no bloody cough, no asthm a, + emphysema/COPD. GASTROINTESTINAL: No bowel disease, no nausea or vomiting, no rectal bleeding, no constipa tion, no fecal stool incontinence, no liver/gallbladder disease, no abdominal pain, no ulcer s. KIDNEY DISEASE: No urinary frequency, no painful or difficult urination, no urinary incont inence, no bladder problems, no impotence. ENDOCRINE: No diabetes, + thyroid disease, no osteopenia or osteoporosis, no breast draina ge. SKIN: No breast lumps, no skin disease or skin changes, no rashes/itches. HEMATOLOGIC/LYMPHATIC: No enlarged lymph nodes, no easy or unusual bleeding, no personal h istory of cancer. RHEUMATOLOGIC: No joint pain/arthritis, no rheumatoid arthritis. INTERIM PHYSICAL EXAMINATION: Blood pressure 154/90, pulse 51, resp. rate 16, height 1.727 m (5' 8"), weight 112 kg (246 lb 14.6 oz). Body mass index is 37.54 kg/m. GENERAL: Uziel Rea is in no acute distress with unlabored respirations. SPINE: The patient s incisions are well healed. EXTREMITIES: No lower extremity edema. NEUROLOGICAL EXAMINATION: MENTAL STATUS: The patient is awake, alert, and oriented. He follows simple and complex commands NEUROLOGICAL EXAM: MENTAL STATUS: The patient is awake, alert, and oriented. He follows simple and complex commands. His speech is fluent, he comprehends speech well, [...] Intrinsics 5 5 Ulnar Intrinsics 5 5 Supervisor Plastic Sheets Strength 5 5 Hip Flexion 5 4+ Hip Extension 5 4 Knee Flexion 5 5 Knee Extension 5 5 Dorsiflexion 5 5 Extensor Hallicus Longus 5 5 Plantarflexion 5 5 SENSORY EXAM: Sensory exam shows no diminished sensation to light touch or pain throughout the upper and lower extremities. REFLEXES: (2 OR 2+ IS NORMAL) REFLEX: RIGHT LEFT BICEPS 2+ 2+ BRACHIORADIALIS 2+ 2+ TRICEPS 2+ 2+ PATELLAR 2+ 2+ ACHILLES 2+ 2+ MCGHEE'S ABSENT ABSENT PLANTAR DOWNGOING DOWNGOING GAIT: Gait is slightly unsteady. He has baseline tremors. RADIOGRAPHIC REVIEW: The patient s x-rays show stable instrumentation and alignment and were reviewed with the patient today. Shadowing seen around left iliac screw. Possible broken hardware of tulip of screw head Some fusion seen from L2-L5 levels. Questionable at L5-S1. ASSESSMENT: Encounter Diagnosis Name Primary? S/P lumbar fusion Yes Past Medical History: Diagnosis Date Actinic keratosis Anxiety Arthritis rheumatoid Asthma, exercise induced Cancer (HCC) 2003 colon cancer Chronic major depressive disorder, recurrent episode (HCC) Chronic pain Colon cancer (HCC) COPD (chronic obstructive pulmonary disease) (HCC) Degenerative disc disease, lumbar Depression GERD (gastroesophageal [...] when he is focused on other topics PLAN: Overall, the patient is doing okay. The patient will continue with his conservative treatment in Physiatry and return in about 5 months with x-rays prior to follow up on his progress. At this time we will also determine if a new Lumbar CT is needed. I, Ender Mora PA-C, personally performed the services described in this documentation , as scribed by Abigail Doran in my presence, and it is both accurate and complete. 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
--- OUTSIDE RECORDS SUMMARY | ~2019-09-09 | XMS | Clinical Summary ---
Demographics + + + | Address | [address] | | | [place] [address] | + + + | Home Phone | | + + + | Preferred Language | Unknown | + + + | Marital Status | | + + + | Yarsanism Affiliation | Unknown | + + + | Race | Unknown | + + + | Ethnic Group | Unknown | + + + Author + + + | Author | [facility] (Historical as of | | | 06-16-19) | + + + | Organization | [facility] (Historical as of | | | 06-16-19) [...] [place], [place] | | | | | [address] | | + + + + + | Maldonado Rea | ECON | Unknown | | + + + + + | Henny Rea | ECON | Unknown | | + + + + + | Meredith Rea | ECON | Unknown | | + + + + + Care Team Providers + +------+ + | Care Team Coordinator Name | Role | Phone | + [...] EST | | appropriate chronotropic response to [id number] echo not done | | yetCOntinue rest [...] 52 bpm. Ongoing tremor affecting | | aueohas9508/25/2016: Labs: Sodium 138, potassium 4.2, creatinine | [...] + + | Father | | | [place], pacemaker, heart disease | | | | [...] +------+-------+ + | MEDICARE | MEDICA | [id number] | | | [address] | | | RE | | | | [place] [address] | | | IP-OP | | | | | + +--------+ +------+-------+ + | [employer] HE[employer] PLAN | ODS | [id number] | | | | | | HEALTH [...] | | al/Fam | | 1945 | [phone] | [place] | | | [place]ot | | | [birth year] | [address] | + +--------+ +--------+ + +
--- OUTSIDE RECORDS SUMMARY | ~2019-09-09 | XMS | Encounter Summary ---
Demographics + + + | Address | [address] | | | [place] [address] | + + + | Home Phone | | + + + | Preferred Language | Unknown | + + + | Marital Status | | + + + | Temple Affiliation | Unknown | + + + | Race | Unknown | + + + | Ethnic Group | Unknown | + + + Author + + + | Author | [facility] | | | and Carlosana | + + + | Organization | [facility] | | | and [...] [place], [place] | | | | | [address] | | + + + + + | Mao Rae | ECON | Unknown | | + + + + + | Meredith Rea | ECON | Unknown | | + + + + + | Iqra Medina | ECON | [address] | | | | | [place], [place] | | | | | [address] | | + + + + + | Maldonado Rea | ECON | Unknown | | + + + + + Care Team Providers + +------+ + | Care Plating Tank Operator Apprentice Name | Role | Phone | + [...] [facility] | | | | | | [place], | [address] | | | | | Sacroiliitis | Luis Carlos Lerner MD | [place], | | | | | ([facility]) | [address] | [place] | | | | | Procedures | [address] [place] | [address] | | | | | [place] INJECT SI | [place] | Phone: | | | | | JOINT | [address] | [phone] | | | | | ARTHRGRPHY&/ | Phone: | Fax: | | | | | ANES/STEROID | [phone] | [phone] | | | | | W/IMAGE [place] | Fax: | | | | | | | [phone] | | | | | | TRIAMCINOLON | | | | | | | E ACET INJ | | | | | | | NOS, 10 MG | | | | | | | Appt today - | | | | | | | Bilat SI | | | +--------+--------+ + + + + Encounter Details +--------+ + + + + | Date | Type | Department | Care Team | Description | +--------+ + + + + | 06/01/ | Hospital | [facility] | Eric, | S/P lumbar fusion; | | 2017 | Encounter | [facility] XRAY [address] | [address] | Sacroiliitis, not | | | | [address] [place] | [facility], | elsewhere classified | | | | [place] [address] | [place] [address] | ([facility]) | | | | [phone] | [phone] | | | | | | | [...] +---------+ + + | Blood Pressure | 118/71 | 06/01/2017 1:36 PM | | | | | PDT [...] [place] | | | | | | [id number] | | | | | | | | +--------+---------+ + + + documented as of this encounter Procedures + +--------+ + + + | Procedure Name | Priori | Date/Time | Associated Diagnosis | Comments | | | ty | | | | + +--------+ + + + | FL SACROILIAC | Routin | 06/01/2017 | S/P lumbar fusion | Results for this | | INJECTION RIGHT | e | 1:12 PM | Sacroiliitis, not | procedure are in the | | | | PDT | elsewhere classified | results section. | | | | | (HCC) | | + +--------+ + + + | FL SACROILIAC | Routin | 06/01/2017 | S/P lumbar fusion | Results for this | | INJECTION LEFT | e | 1:12 PM | Sacroiliitis, not | procedure are in the | | | | PDT | elsewhere classified | results section. | | | | | (HCC) | | + +--------+ + + + documented in this encounter Results FL Sacroiliac Injection Right (06/01/2017 1:12 PM PDT) + + | Specimen | + + | | + + + + + | Narrative | Performed At | + + + | | [facility] | | 06/01/2017Bilateral Sacroiliac Joint InjectionClinical History: | [facility] | | Sacroiliitis ICD-10 M46.1 Uziel Rea presents to the fluoroscopy [facility] | | suite for fluoroscopically guided bilateral sacroiliac joint steroid | - IMAGING | | injections as part of conservative management for chronic pain with | | | sacroiliitis. After informed consent was obtained the patient laid in | | | the prone position on the fluoroscopy table. The bilateral sacroiliac | | | joints were identified under fluoroscopic guidance. The areas were | | | prepped and draped in sterile fashion. A 25 gauge 1-1/2 inch needle | | | was inserted into each region and approximately 3 mL of buffered 1% | | | lidocaine was infused. Then a 22 gauge spinal needle was inserted into | | | the inferior joint spaces under fluoroscopic guidance. Confirmation | | | into the sacroiliac joints obtained with infusion of approximately 1 | | | mL of Omnipaque contrast which showed flow within the joint spaces. | | | Then a combination of 2 mL 1% lidocaine and 2 mL of 40 mg per | | | milliliter Kenalog was infused divided between the two sides. The | | | patient tolerated the procedure well without complications. Pre- and | | | post procedure blood pressures were stable. The patient was given | | | verbal as well as written followup instructions. Prior to the start | | | of the procedure the following were performed and verified including | | | correct patient identity, correct site/side marked and visible, | | | agreement of the procedure to be done, correct patient positioning and | | | an accurate procedure consent form. Any safety precautions based on | | | clinical history and/or medications have been addressed. I personally | | | performed the procedure above. Estimated blood loss: | | | MinimalComplications: NoneFindings: As expectedAnesthesia: Local | | | 1% Lidocaine | | |I personally performed the procedure above. | | | | | |Estimated blood loss: Minimal | | |Complications: None | | |Findings: As expected | | |Anesthesia: Local 1% Lidocaine | | + + + + + + + + | Performing | Address | City/State/[facility] | Phone Number | | Organization | | | | + + + + + | [facility] | [address] | [place] | [phone] | | [facility] | | [address] | | | - IMAGING | | | | + + + + + FL Sacroiliac Injection Left (06/01/2017 1:12 PM PDT) + + | Specimen | + + | | + + + + + | Narrative | Performed At | + + + | | [facility] | | 06/01/2017Bilateral Sacroiliac Joint InjectionClinical History: | [facility] | | Sacroiliitis ICD-10 M46.1 Uziel Rea presents to the fluoroscopy [facility] | | suite for fluoroscopically guided bilateral sacroiliac joint steroid | - IMAGING | | injections as part of conservative management for chronic pain with | | | sacroiliitis. After informed consent was obtained the patient laid in | | | the prone position on the fluoroscopy table. The bilateral sacroiliac | | | joints were identified under fluoroscopic guidance. The areas were | | | prepped and draped in sterile fashion. A 25 gauge 1-1/2 inch needle | | | was inserted into each region and approximately 3 mL of buffered 1% | | | lidocaine was infused. Then a 22 gauge spinal needle was inserted into | | | the inferior joint spaces under fluoroscopic guidance. Confirmation | | | into the sacroiliac joints obtained with infusion of approximately 1 | | | mL of Omnipaque contrast which showed flow within the joint spaces. | | | Then a combination of 2 mL 1% lidocaine and 2 mL of 40 mg per | | | milliliter Kenalog was infused divided between the two sides. The | | | patient tolerated the procedure well without complications. Pre- and | | | post procedure blood pressures were stable. The patient was given | | | verbal as well as written followup instructions. Prior to the start | | | of the procedure the following were performed and verified including | | | correct patient identity, correct site/side marked and visible, | | | agreement of the procedure to be done, correct patient positioning and | | | an accurate procedure consent form. Any safety precautions based on | | | clinical history and/or medications have been addressed. I personally | | | performed the procedure above. Estimated blood loss: | | | MinimalComplications: NoneFindings: As expectedAnesthesia: Local | | | 1% Lidocaine | | |I personally performed the procedure [...] | + + + + + | [facility] [address] | [address] | [place] | [phone] | | [facility] | | [address] | | | - IMAGING | | | | + + + + + documented in this encounter Visit Diagnoses + + | Diagnosis | + + | S/P lumbar fusion Arthrodesis status | + + | Sacroiliitis, not elsewhere classified (HCC) Sacroiliitis, not elsewhere classified | + + documented in this encounter Administered Medications + +--------+ +-------+------+------+ | Medication Order | MAR | Action | Dose | Rate | Site | | | Action | Date | | | | + +--------+ +-------+------+------+ | dexamethasone (PF) 10 mg/mL | Given | 06/01/20 | 20 mg | | | | injection 20 mg 20 mg, Other, | | 17 1:22 | | | | | ONCE, 06/01/17 at 1330, For 1 | | PM PDT | | | | | dose | | | | | | + +--------+ +-------+------+------+ +---+---+ | | | +---+---+ + +-------+ +-------+---+---+ | iohexol (OMNIPAQUE 300) 300 | Given | 06/01/20 | 4 mLs | | | | mg/mL injection 4 mL 4 mL, | | 17 1:20 | | | | | Other, ONCE, Tue06/01/17 at 1330, | | PM PDT | | | | | For 1 dose | | | | | | + +-------+ +-------+---+---+ +---+---+ | | | +---+---+ + +-------+ +-------+---+---+ | lidocaine (PF) 1% injection 2 | Given | 06/01/20 | 2 mLs | | | | mL 2 mL, Other, ONCE, Tue06/01/17 | | 17 1:22 | | | | | at 1330, For 1 dose | | PM PDT | | | | + +-------+ +-------+---+---+ +---+---+ | | | +---+---+ + +-------+ +--------+---+---+ | lidocaine buffered 1% injection | Given | 06/01/20 | 10 mLs | | | | 10 mL 10 mL, Other, ONCE, Wed | | 17 1:18 | | | | | 06/01/17 at 1330, For 1 dose | | PM PDT | | | | + +-------+ +--------+---+---+ +---+---+ | | | +---+---+ documented in this encounter"
--- OUTSIDE RECORDS SUMMARY | ~2019-09-09 | XMS | Encounter Summary ---
Demographics + + + | Address | [address] | | | [place] [address] | + + + | Home Phone | | + + + | Preferred Language | Unknown | + + + | Marital Status | | + + + | Yazdanism Affiliation | Unknown | + + + | Race | Unknown | + + + | Ethnic Group | Unknown | + + + Author + + + | Author | [facility] | | | and [place] | + + + | Organization | [facility] | | | [...] [place], [place] | | | | | [address] | | + + + + + | Mao Rea | ECON | Unknown | | + + + + + | Meredith Rea | ECON | Unknown | | + + + + + | Iqra Medina | ECON | [address] | | | | | [place], [place] | | | | | [address] | | + + + + + | Maldonado Rea | ECON | Unknown | | + + + + + Care Team Providers + +------+ + | Care Director Of Product Development Name | Role | Phone | + [...] + + | 02/18/ | Office | [facility] [place] | Koby George MD | Pseudoarthrosis of | | 2017 | Visit | NEUROSURGERY [address] | [address] | lumbar spine | | | | [address] | [place] [address] | (Primary Dx); S/P | | | | [place], [place] | [phone] | lumbar fusion; | | | | [address] | | Synovial cyst of | | | | [phone] | | lumbar facet joint; | | [...] from t tu original. Koby George MD [address] [place] [address], [address] [place], [place] [id number] FAX: NEUROSURGERY FOLLOW-UP CHIEF COMPLAINT: Chief Complaint [...] surgery prostate trim Colectomy 2003 Hernia repair 2011 umbilical hernia in 2010 and 2003 right groin hernia Kidney stone surgery 1988 Knee surgery 1979 bilat knee arthroscopy Shoulder surgery 1979 shoulder arthroscopic Tonsillectomy Eye muscle surgery eye muscle correction Tooth extraction 05/2014 Lumbar spine surgery 12/02/2014 L2-3, L3-4, L4-5 LAIF, L2-3, L3-4, L4-5 Posterior Instrumentation, L2-3 Decompression; L aterality: N/A; Surgeon: Koby George MD; Location: [facility] MAIN OR CURRENT MEDICATIONS: Current Outpatient Prescriptions [...] immunosuppressant longer after surgery as well to polishing machine operator helper in the fusion process. He would [...] SIGNED BY: Koby George MD, 02/18/2017 12:17 arAnnika carpenter RN - 9:06 AM PDTPatient in office [...] [place] | | | | | | [address] | | | | | | | [...]
--- OUTSIDE RECORDS SUMMARY | ~2019-09-09 | XMS | Encounter Summary ---
Demographics + + + | Address | [address] | | | [place] [address] | + + + | Home Phone | | + + + | Preferred Language | Unknown | + + + | Marital Status | | + + + | Sikh Affiliation | Unknown | + + + | Race | Unknown | + + + | Ethnic Group | Unknown | + + + Author + + + | Author | [facility] | | | and [place] | + + + | Organization | [facility] | | | and [...] [place], [place] | | | | | [address] | | + + + + + | Mao Rea | ECON | Unknown | | + + + + + | Meredith Rea | ECON | Unknown | | + + + + + | Iqra Medina | ECON | [address] | | | | | [place], [place] | | | | | [address] | | + + + + + | Maldonado Rea | ECON | Unknown | | + + + + + Care Team Providers + +------+ + | Care Corset Maker Name | Role | Phone | + [...] | (Primary Dx) | | | | [place], | [address] [place] [address] | | | | | [place] [address] | [address] | | | | | [phone] | | | +--------+ + + + [...] [place] | | | | | | [address] | | | | | | | [...] + + | Performing | Address | City/State/[facility] | Phone Number | | Organization [...]
--- OUTSIDE RECORDS SUMMARY | ~2019-09-09 | XMS | Encounter Summary ---
Demographics + + + | Address | [address] | | | [place] [address] | + + + | Home Phone | | + + + | Preferred Language | Unknown | + + + | Marital Status | | + + + | Rastafarian Affiliation | Unknown | + + + | Race | Unknown | + + + | Ethnic Group | Unknown | + + + Author + + + | Author | [facility] | | | and [place]ana | + + + | Organization | [facility] | | | and [...] [place], [place] | | | | | [address] | | + + + + + | Mao Rea | ECON | Unknown | | + + + + + | Meredith Rea | ECON | Unknown | | + + + + + | Iqra Medina | ECON | [address] | | | | | [place], [place] | | | | | [address] | | + + + + + | Maldonado Rea | ECON | Unknown | | + + + + + Care Team Providers + +------+ + | Care Coater Name | Role | Phone | + +------+ + | Sherie Vela PA-C | PCP | | + +------+ + Reason for Visit +---------+ + | Reason | Comments | +---------+ + | Post Op | 1Y | +---------+ + Encounter Details +--------+---------+ + + + | Date | Type | Department | Care Team | Description | +--------+---------+ + + + | 02/20/ | Office | [facility] | Pedro Riggins | Pseudoarthrosis of | | 2018 | Visit | NEUROSURGERY [address] | D, PA-C [address] | lumbar spine | | | | [address] | [address] | (Primary Dx); S/P | | | | [place], [place] | [place], [place] | lumbar fusion | | | | [address] | [address] | | | | | [phone] | | | +--------+---------+ + + + [...] + + + | Blood Pressure | 126/70 | 02/20/2018 10:51 AM | | | | | PDT | | + + + + + | Pulse | 56 | 02/20/2018 10:51 AM | | | | | PDT | | + + + + + | Temperature | - | - | | + + + + + | Respiratory Rate | 14 | 02/20/2018 10:51 AM | | | | | PDT | | + + + + + | Oxygen Saturation | - | - | | + + + + + | Inhaled Oxygen | - | - | | | Concentration | | | | + + + + + | Weight | 102.1 kg (225 lb 1.4 | 02/20/2018 10:51 AM | | | | oz) | PDT | | + + + + + | Height | 172.7 cm (5' 8") | 02/20/2018 10:51 AM | | | | | PDT | | + + + + + | Body Mass Index | 34.22 | 02/20/2018 10:51 AM | | | | | PDT [...] documented as of this encounter Progress Notes Pedro Riggins PA-C - 02/20/2018 10:30 AM PDTFormatting of this note might be differen t from the original. Pedro Riggins PA-C [address] [facility], [address] [place], [place] [address] FAX: NEUROSURGERY FOLLOW-UP CHIEF COMPLAINT: Chief Complaint Patient presents with Post Op 1Y HISTORY OF PRESENT ILLNESS: The patient is a 72 y.o. male that had a L5-S1 Transforaminal Lumbar Interbody Fusion, Hardware Revision @ L2-3, L3-4, L4-5 (Posterior Spine Lumbar) for b ack and left leg pain in January 2017. He returns and overall is doing okay. The patient comp lains of lower back pain that is more pronounced on his left side that radiates into his lef t lower extremity. He is still taking nerve medications and denies taking pain medication. Patient does report getting a steroid injection done by Dr. Jiménez roughly seven weeks ago and is now tucker off. Patient reports that he had a RFA done in [place], [place] in December 2017. He reports that his pain was in his back and into his left lower extremity. He states that the back pain has dec reased but is still having left lower extremity pain in the front of his leg that stops at t he knee. He states that he does notice some left leg weakness. Reports that his daily pain i n that region is a 4 to 5 out of 10. He denies that this pain plays much effect on his daily life. CURRENT MEDICATIONS: Current Outpatient Prescriptions Medication Sig [...] daily. gabapentin (NEURONTIN) 600 MG tablet Take 400 mg by mouth 3 times [...] 20 mg by mouth 2 times daily. PROAIR HFA 108 (90 Base) MCG/ACT inhaler propranolol (INDERAL LA) 160 mg SR capsule Take 160 mg by mouth Daily. QVAR REDIHALER 40 MCG/ACT inhaler Take 40 mcg by mouth as needed. REXULTI 3 MG tablet Take 3 mg by mouth Daily. simvastatin (ZOCOR) 40 mg tablet Take 40 mg by mouth Daily. sulfaSALAzine (AZULFIDINE) 500 MG EC tablet Take 500 mg by mouth 2 times daily. Tocilizumab (ACTEMRA IV) Inject into the vein. No current facility-administered medications for this visit. ALLERGIES: No Known Allergies SOCIAL HISTORY: The patient reports that he quit smoking about 37 years ago. His smoking use included Ciga rettes. He has a 40.00 pack-year smoking history. He has never used smokeless tobacco. He re ports that he does not drink alcohol or use drugs. REVIEW OF SYSTEMS GENERALLY: No fever, + night sweats, no anemia, no fatigue, no recent profound weight jose nges. EYES: No eye problems, no use of [...] present illness. In addition, the patient has numbness of face. PSYCHIATRIC: + depression, no sleep disorders, no anxiety, no bipolar disorder, no psychot ic episodes. CARDIOVASCULAR: No heart attacks, no heart [...] urinary frequency, no painful or difficult urination, + incontinence. ENDOCRINE: No diabetes, no thyroid disease, + osteopenia or osteoporosis, no breast draina ge. SKIN: No breast lumps, no skin changes, no rashes, no itches. HEMATOLOGIC/LYMPHATIC: No enlarged lymph nodes, no easy or unusual bleeding, no personal h istory of cancer. RHEUMATOLOGIC: + joint arthritis, + rheumatoid arthritis. INTERIM PHYSICAL EXAMINATION: Blood pressure 126/70, pulse 56, resp. rate 14, height 1.727 m (5' 8"), weight 102.1 kg (22 5 lb 1.4 oz). Body mass index is 34.22 kg/m. GENERAL: Uziel Rea is in no acute distress with unlabored respirations. SPINE: The patient s incisions are well healed. EXTREMITIES: No lower extremity edema. NEUROLOGICAL EXAMINATION: MENTAL STATUS: The patient is awake, alert, and oriented. He follows simple and complex commands MOTOR EXAM: Motor strength is stable. SENSORY EXAM: The sensory examination is unchanged when compared to the preoperative exam. NEUROLOGICAL EXAM: MENTAL STATUS: The patient is awake, alert, and oriented. He follows simple and complex commands. His speech is fluent, he comprehends speech well, and he repeats well. He has no apparent deficits with short or group home memory. CRANIAL NERVES: II: Acuity is intact. [...] Intrinsics 5 5 Ulnar Intrinsics 5 5 Wool Sampler Strength 5 5 Hip Flexion 5 4+ [...] L2-L5 levels. Questionable at L5-S1. ASSESSMENT: Encounter Diagnoses Name Primary? Pseudoarthrosis of lumbar spine Yes S/P lumbar fusion Past Medical History: Diagnosis Date Anxiety Arthritis rheumatoid Cancer (HCC) 2004 colon cancer Degenerative disc disease, lumbar Depression Hard of hearing bilateral hearing aids Hypothyroid Lumbar radiculopathy Rheumatoid arthritis (HCC) Sleep apnea no CPAP Tremor PLAN: Overall, the patient is doing okay. The patient can now stand for a longer period of time and his PATSY continues to improve down from 65 to now 44. We discussed his symptoms in detail. It seems the RFA ablation helped his most acute sympto ms. We discussed the lucency around the screw questionable pseudoarthrosis at L5-S1. There also may be sign of broken hardware. With this, we will obtain a CT lumbar spine. The patient would benefit from another bone growth stimulator. This could help promote incr eased fusion. I increased the patient s activities now allowing a 30 pound lifting restriction that can be gradually increased to an as tolerated limit up to 50 lbs max. He should continue to pa y attention to body mechanics while lifting. The patient should increase range of motion a ctivities as tolerated. They should continue regular exercise and strengthening with the ho pe that they can avoid additional surgery. The patient will slowly and deliberately increas e his activities with walking. He is not longer taking pain medicine. He can discuss medication management with PCP. The patient will complete CT scan and contact our office to review results. ELECTRONICALLY SIGNED BY: Pedro Riggins PA-C, 02/20/2018 11:33 IPedro PA-C, personally performed the services described in this documentat ion, as scribed by Shannan Cook CMA in my presence, and it is both accurate and complete. Pedro Riggins PA-C 02/20/2018 documented in th is encounter Plan of [...] [place] | | | | | | [address] | | | | | | | | +--------+---------+ + + + documented as of this encounter Visit Diagnoses + + | Diagnosis | + + | Pseudoarthrosis of lumbar spine - Primary Nonunion of fracture | + + | S/P lumbar fusion Arthrodesis status | + + documented in this encounter
--- OUTSIDE RECORDS SUMMARY | ~2019-09-09 | XMS | Encounter Summary ---
Demographics + + + | Address | [address] | | | [place] [address] | + + + | Home Phone [...] Author | [facility] | | | and [place] | + + + | Organization | [facility] | | | and [place] [...] [place], [place] | | | | | [address] | | + + + + + | Mao Rea | ECON | Unknown | | + + + + + | Meredith Rea | ECON | Unknown | | + + + + + | Iqra Medina | ECON | [address] | | | | | [place], [place] | | | | | [address] | | + + + + + | Maldonado Rea | ECON | Unknown | | + + + + + Care Team Providers + +------+ + | Care Customs House Broker Name | Role | Phone | + [...] Services | n | Parkinson's | Jarvis Qiu | Mahnaz | | | Required | | disease | MD 19 | Therapy [address] | | | | | ([facility]) | [place] | [address] | | | | | Procedures | [place] | [place], | | | | | TURBO ELECTRIC OPERATOR | [address] [place] | [place] [address] | | | | | | [place], [place] | Phone: | | | | | | [address] | [phone] | | | | | | Phone: | Fax: | | | | | | [phone] | [phone] | | | | | | Fax: | | | | | | | [phone] | | +--------+ + + + + + Reason for Visit + + + | Reason | Comments | + + + | Referral | TUR[employer] ELECTRIC OPERATOR | + + + Encounter Details +--------+ + + + + | Date | Type | Department | Care Team | Description | +--------+ + + + + | 02/08/ | Telephone | [facility] | Jarvis Dawson, | Referral (TURBO ELECTRIC OPERATOR) | | 2019 | | NEUROLOGY [facility] | [address] | | | | | [address], | [place] [address] | | | | | [address] [place] | [place] | | | | | [place] [address] | [address] | | | | | [phone] | | | +--------+ + + + [...] [place] | | | | | | [address] | | | | | | | [...]
--- OUTSIDE RECORDS SUMMARY | ~2019-09-09 | XMS | Encounter Summary ---
Demographics + + + | Address | [address] | | | [place] [address] | + + + | Home Phone | | + + + | Preferred Language | Unknown | + + + | Marital Status | | + + + | Hoahaoism Affiliation | Unknown | + + + | Race | Unknown | + + + | Ethnic Group | Unknown | + + + Author + + + | Author | [facility] | | | and [place] | + + + | Organization | [facility] | | | and [place] [...] [place], [place] | | | | | [address] | | + + + + + | Mao Rea | ECON | Unknown | | + + + + + | Meredith Rea | ECON | Unknown | | + + + + + | Iqra Medina | ECON | [address] | | | | | [place], [place] | | | | | [address] | | + + + + + | Maldonado Rea | ECON | Unknown | | + + + + + Care Team Providers + +------+ + | Care Diamond Blender Name | Role | Phone | + +------+ + PCP | Unavailable | + +------+ + Encounter Details +--------+ + + + + | Date | Type | Department | Care Team | Description | +--------+ + + + + | 06/21/ | Hospital | [facility] | Hadley Wesis | | | 2010 | Encounter | MED CTR SLEEP | MD [place] [address] | | | | | [place] [address] | [address] [place] [facility] | | | | | [place] | [place] [address] | | | | | [address] | [phone] | | | | | [phone] | | | +--------+ + + + [...] [place] | | | | | | [address] | | | | | | | | +--------+---------+ + + + documented as of this encounter Visit Diagnoses Not on filedocumented in this encounter"
--- OUTSIDE RECORDS SUMMARY | ~2019-09-09 | XMS | Encounter Summary ---
Demographics + + + | Address | [address] | | | [place] [address] | + + + | Home Phone | | + + + | Preferred Language | Unknown | + + + | Marital Status | | + + + | Adventist Affiliation | Unknown | + + + | Race | Unknown | + + + | Ethnic Group | Unknown | + + + Author + + + | Author | [facility] | | | and Carlosana | + + + | Organization | [facility] | | | and Carlosana [...] [place], [place] | | | | | [address] | | + + + + + | Mao Rea | ECON | Unknown | | + + + + + | Meredith Rea | ECON | Unknown | | + + + + + | Iqra Medina | ECON | [address] | | | | | [place], [place] | | | | | [address] | | + + + + + | Maldonado Rea | ECON | Unknown | | + + + + + Care Team Providers + +------+ + | Care Shade Matcher Name | Role | Phone | + [...] + + | Closed | Specialty | Pain Medicine | Diagnoses | Charles, | Aracely, | | | Services | | Sacroiliac | Logan Rios MD | Jarvis Gonzales DO | | | Required | | joint | [address] | | | | | dysfunction | [address] | [address] | | | | | of both | [place], | [place], | | | | | sides | [place] [address] | [place] [address] | | | | | History of | Phone: | Phone: | | | | | lumbar | [phone] | [phone] | | | | | fusion | Fax: | Fax: | | | | | Procedures | [phone] | [phone] | | | | | HIM 07/27 | | | +--------+ + + + + + Reason for Visit + + + | Reason | Comments | + + + | Back Pain | | + + + Encounter Details +--------+---------+ + + + | Date | Type | Department | Care Team | Description | +--------+---------+ + + + | 07/20/ | Office | [facility] | Logan Soto, | Chronic left-sided | | 2017 | Visit | PHYSIATRY [address] | MD [address] | low back pain with | | | | [place], | [place], [place] | left-sided sciatica | | | | [place] [address] | [address] | (Primary Dx); Lumbar | | | | [phone] | | radiculopathy; | | | | | | Sacroiliac joint | | | | | | dysfunction of both | | | | | | sides; History of | | | | | | lumbar fusion; | | | | | | Failed back surgical | | | | | | syndrome | +--------+---------+ + + + Social History [...] + + + | Blood Pressure | 125/71 | 07/20/2017 11:38 AM | | | | | PDT | | + + + + + | Pulse | 51 | 07/20/2017 11:38 AM | | | | | PDT [...] Weight | 90.7 kg (200 lb) | 07/20/2017 11:38 AM | | | | | PDT | | + + + + + | Height | 172.7 cm (5' 8") | 07/20/2017 11:38 AM | | | | | PDT | | + + + + + | Body Mass Index | 30.41 | 07/20/2017 11:38 AM | | | | | PDT [...] of this encounter Patient Instructions Patient Instructions Claudia Strickland, [employer] Be[employer]er - 07/20/2017 10:50 AM PDT Follow-up at the hospital thirty minutes before [...] of the procedure you must provide a salesperson driver to take you home. For all procedur es it is recommended that someone else drive you home. documented in this encounter Progress Notes Logan Soto MD - 07/20/2017 10:50 AM PDTFormatting of this note might be different fro m the original. CHIEF COMPLAINT: Chief Complaint Patient presents with Back Pain HISTORY OF PRESENT ILLNESS: Uziel Rea is a 72 y.o. male being seen today in follow-up to review bilateral SI rigoberto nt injections. Uziel Rea was last seen on 06/01/17. Previously it was recommended that he have bilateral SI joint injections. He reports that the treatment was effective. Uziel Rea indicates that injections may have helped for a couple of weeks. His reports that injections took some time to take effect. Overall Uziel Rea reports that He symptoms are improving. He rates the pain as flor re. Uziel Rea describes the pain as sharp. His symptoms worsen with getting up in the morning. His symptoms improve with laying down. Uziel Rea does not describe n umbness of the bilateral legs. Uziel Rea describes left front of the thigh pain. Blanka Rea reports feet numbness. He does report generalized weakness of the bilateral legs. He does not have bowel and bladder dysfunction. Prior injections have included bilateral SI joint injection completed 06/01/17, with Dr. Benita reeves. Uziel Rea reports having 50% improvement directly following the injection. Ramos reports that 2 weeks following the injection they experienced approximately 8 0% improvement to their pain. Today Uziel Rea reports that he is no longer feeling ef fects of injections. Uziel Rea's medications, allergies, past medical, surgical, [...] mouth 2 times daily. 240 mL 3 leflunomide (ARAVA) 10 mg tablet Take 10 [...] fo r Muscle spasms. 90 tablet 3 methotrexate (PF) 25 mg/mL injection Inject 0.8 mg into the muscle Once a week. METHYLCOBALAMIN PO Take 1,000 mcg by mouth Daily. Misc Natural Products (TURMERIC CURCUMIN) CAPS Take 1 capsule by mouth Daily. Multiple Vitamins-Minerals (A THRU Z ADVANCED) TABS omeprazole (PRILOSEC) 20 mg capsule Take 20 mg by mouth 2 times daily. oxyCODONE 10 MG TABS Take 0.5-2 tablets by mouth every 4 hours as needed. (Patient naomy thomas differently: Take 60 mg by mouth.) 120 tablet 0 propranolol (INDERAL) 20 MG tablet Take 20 mg by mouth 6 times daily. simvastatin (ZOCOR) 40 mg tablet Take 40 mg by mouth Daily. sulfaSALAzine (AZULFIDINE) 500 MG EC tablet Take 500 mg by mouth 3 times daily. XELJANZ XR 11 MG tablet ziprasidone (GEODON) 80 MG capsule Take 80 mg by mouth 2 times daily (with breakfast & dinner). No current facility-administered medications for this visit. ALLERGIES: No Known Allergies REVIEW OF SYSTEMS: ROS GENERALLY: No fever, no night sweats, no [...] no sinus problems, no major dental work. NEUROLOGICALLY:The patient has no numbness/pain of arms, no numbness/pain of legs, no awake with numbness/pain, no weakness, no muscle aching, no coordination difficulty, no change in walk, no head injury, no neck injury, no back injury, no pain in neck, + pain in back, no s troke, no fainting spells, no loss of consciousness, no tremor/shaking, no seizures, no head aches, no migraine, no memory loss, no speech difficulty, no confusion and no numbness of fa ce. PSYCHIATRIC: + depression, no sleep disorders, no anxiety, no bipolar disorder, no psychot ic episodes. CARDIOVASCULAR: No heart attacks, no heart murmur, no heart fluttering, no chest pain, no ankle swelling. LUNG DISEASE: +shortness of breath, + cough, no tuberculosis, no bloody cough, no asthma, no emphysema/COPD. GASTROINTESTINAL: No bowel disease, no nausea or vomiting, no rectal bleeding, no constipa tion, no stool incontinence, no liver disease, no gallbladder disease, no abdominal pain, no ulcers. KIDNEY DISEASE: No urinary frequency, no painful or difficult urination, no incontinence. ENDOCRINE: No diabetes, no thyroid disease, no osteopenia or osteoporosis, no breast drain age. SKIN: No breast lumps, no skin changes, no rashes, no itches. HEMATOLOGIC/LYMPHATIC: No enlarged lymph nodes, no easy or unusual bleeding, no personal h istory of cancer. RHEUMATOLOGIC: + joint arthritis, no rheumatoid arthritis. PHYSICAL EXAMINATION: Blood pressure 125/71, pulse 51, height 1.727 m (5' 8"), weight 90.7 kg (200 lb). Body mass index is 30.41 kg/m. GENERAL: The patient is well developed and well nourished. HEENT: Normocephalic and atraumatic. Normal sclerae without icterus. NECK (ANTERIOR): There is no apparent cervical lymphadenopathy or thyromegaly. PULMONARY: The patient is in no acute respiratory distress with unlabored respirations. CARDIOVASCULAR: Regular rate and rhythm. ABDOMEN: Distended. SKIN: There are scars in the lumbar region. NEUROLOGIC: The patient is awake, alert, and oriented. He follows simple and complex commands. His speech is fluent. He comprehends speech well. 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 The cranial nerves appear grossly intact. Sensory exam: Decreased sensenation over L4 dermatome bilaterally to light touch. MOTOR EXAM: (5 IS NORMAL) * Indicates pain limited MUSCLE/ MOVEMENT: RIGHT LEFT Deltoids 5 5 Biceps 5 5 Triceps 5 5 Wrist Flexion 5 5 Wrist Extension 5 5 Finger Abduction 5 5 Robotic Machine Operator Strength 5 5 Hip Flexion 5 5 Hip Extension 5 5 Knee Flexion 5 5 Knee Extension 5 5 Extensor Hallicus Longus 5 5 Ankle Dorsiflexion 5 5 Plantarflexion 5 5 REFLEX: RIGHT LEFT PATELLAR 2+ 2+ ACHILLES 1+ 1+ MCGHEE'S Negative Negative PLANTAR Downgoing Downgoing MUSCULOSKELETAL : Tenderness to palpation over lumbar facets approximately over L5-S1 and S I joints bilaterally. DATABASE: Lumbar X-rays competed 05/24/16 were reviewed personally by me in detail during today's vi sit. I concur with the results as reported by the Radiologist. The imaging demonstrates: pr ior lumbar fusion L2-S1 with noted probable osseus neural foraminal narrowing at L2-3. ASSESSMENT: 1. Chronic left-sided low back pain with left-sided sciatica 2. Lumbar radiculopathy 3. Sacroiliac joint dysfunction of both sides 4. History of lumbar fusion 5. Failed back surgical syndrome PLAN: 1. Today we discussed that bilateral SI joint injections performed on 06/01/17 were diagnosti raymundo positive. Unfortunately injections failed to offer therapeutic benefit. He reported 8 0% pain relief with SI injections, but it only lasted 2-3 weeks. As an alternative we discu sssed radio frequency ablation of the SI joints. We discussed that rhizotomy may not relieve all pain. We discussed that rhizotomy does not work for everyone. Uziel Rea will hav e consult with in regards to radiofrequency ablation of SI joints. He may have failed back surgery syndrome. He is only approximately 6 months out from his l ast back surgery. If he has pain persisting at one year, may consider evaluation for spinal cord stimulator. 2. Today we discussed other treatment considerations for his left thigh pain. Uziel hernandze will have left L2-L3 TFESI with the goal of treating left L2-L3 radiculopathy. Uziel Rea had L2-S1 fusion completed 02/23/17 Uziel Rea has persisting pain for more th an 3 months. Pain is radiating into left thigh. Symptoms are interfering with ability to car ry out activities of daily living and with quality of life. He has failed prior PT, surgery , medication for neuropathic pain, NSAIDs, etc. 3. Surgical intervention was discussed today with Uziel Silas Rona. We discussed that surgi akila treatment is usually considered last resort. We discussed that surgical treatment is r ecommended if weakness is affecting function. We discussed that surgical treatment is geo mmended if there are changes to bowel/bladder function. We discussed that surgical treatme nt may be considered if there is progressive weakness. We discussed that surgical treatmen t may be helpful for radicular symptoms, but back pain may persist after surgical treatment. We discussed the option of possible fusion of bilateral SI joint injections. We discussed t hat this will prevent movement of SI joints. Today we also discussed the use of spinal cord stimulator. We discussed that spinal cord stimulators do not work for everyone. We discussed risks of spinal cord stimulators. We discussed that it is to early to consider spinal cord stimulator at this time. 4. Uziel Rea will return to clinic to review lumbar epidural steroid injections and consult with . Uziel Rea currently has two areas of pain. He has pain in upper lumbar region with r adicular symptoms into the left leg. This is most consistent with left L2 radiculopathy. H as notable degenerative changes at this level seen on x-ray. He has failed other conservat dhiraj treatment. Diagnostic and potentially therapeutic epidural steroid injection has been r equested. His second region of pain is the bilateral SI joints. He has had fusion through S1. The S I joints are the next in the kinetic chain. He likely has hypermobility introduced into his SI joints because being fused from L2 through S1. He has diagnostic positive response to S I joint injections but failed to have therapeutic benefit. She has failed PT, NSAIDs and ot her conservative measures. He will likely have persisting instability. Today we reviewed t he options of RFA versus SI joint fusion. He would like to consider evaluation for RFA. Co nsult with Dr. Jessica was requested. Thank you for allowing me to be [...] documentation, as scribed by in my presence, JADON Gallagher and are both accurate and complete. Logan Soto MD - 07/20/2017 documented in this en counter Plan of [...] [place] | | | | | | [address] | | | | | | | | +--------+---------+ + + + + + +--------+ + + | Name | Type | Priori | Associated Diagnoses | Order Schedule | | | | ty | | | + + +--------+ + + | Pain Clinic, | Outpatient | Routin | Sacroiliac joint | Ordered: 07/20/2017 | | External - AMB | Referral | e | dysfunction of both | | | Referral | | | sides History of | | | | | | lumbar fusion | | + + +--------+ + + documented as of this encounter Visit Diagnoses + + | Diagnosis | + + | Chronic left-sided low back pain with left-sided sciatica - Primary | + + | Lumbar radiculopathy Thoracic or lumbosacral neuritis or radiculitis, unspecified | + + | Sacroiliac joint dysfunction of both sides Disorders of sacrum | + + | History of lumbar fusion | + + | Failed back surgical syndrome Other unspecified back disorder | + + documented in this encounter
--- OUTSIDE RECORDS SUMMARY | ~2019-09-09 | XMS | Encounter Summary ---
Demographics + + + | Address | [address] | | | [place] [address] | + + + | Home Phone [...] | + + + | Organization | [facility] [...] [place], [place] | | | | | [address] | | + + + + + | Mao Rea | ECON | Unknown | | + + + + + | Meredith Rea | ECON | Unknown | | + + + + + | Iqra Medina | ECON | [address] | | | | | [place], [place] | | | | | [address] | | + + + + + | Maldonado Rea | ECON | Unknown | | + + + + + Care Team Providers + +------+ + | Care Adding Machine Operator Name | Role | Phone [...] | | | lordosis | | [address] | | | | | (acquired) | | [place], | | | | | Other | | [place] [address] | | | | | lordosis | | Phone: | | | | | (acquired) | | [phone] | | | | | Procedures | | Fax: | | | | | [place] | | [phone] | | | | | ARTHRODESIS | [...] + + | 12/02/ | Anesthesia | [facility] | Ran Church MD | H/O colon cancer - | | 2014 | Event | MED CTR OR INTRA OP | [address] | 2003 (Primary Dx); | | | | [address] | [place] | Medical marijuana | | | | [place] | [address] | use; Former Tobacco | | | | [address] | | Smoker - quit 1980 | | | | [phone] | | | +--------+ + + + + Anesthesia Record + + + + + | Procedure Name | Responsible | Anesthesia Start | Anesthesia Stop Time | | | Anesthesiologist | Time | | + + + + + | L2-3, L3-4, L4-5 | Ran Church MD | 12/02/14 1340 | 12/02/14 4010 | | LAIF, L2-3, L3-4, | | [...] +----+---+ + + | | 1 | [place] | Upper body blanket | | | 4 | 43-degrees | | | | 0 | | | | | 5 | | | +----+---+ + + | | 1 | [place] | Lower body blanket | | | [...] +----+---+ + + | | 1 | [place] off | | | | 7 | [...] Drain/ | 12/02/14; 1707; #1; posterior; | 12/02/141706 by | 12/04/14 1300 by | | Device | lumbar spine; [address] | Joseph Titus RN | Ivis Traroe RN | | Site | DRAIN; short [...] + + | Read | 12/02/14; 1708; Bilateral; back; | 12/02/14 1708 by | 12/05/14 1021 by | | [...] [place] | | | | | | [address] | | | | | | | [...] | | | PRN, Starting 12/02/14 at 1402, | | PM PST | [...] | +---+---+ + +-------+ +--------+---+---+ | glycopyrrolate (NATTY) | Given | 12/02/19 | 0.2 mg | | | | injection Intravenous, PRN, | | 15 3:49 | | | | | Secretions, Starting 12/02/14 | | PM PST | [...] mg | | | | PRN, Starting Tue12/02/14 at 1346, | | 15 4:54 | [...] | | | | | CONTINUOUS, Starting Tue12/02/14 | | PM PST | | | [...] 2:47 | | | | | Starting Tue12/02/14 at 1447, | | PM PST | [...] | | | PRN, Starting Tue12/02/14 at 1355, | | PM PST | [...]
--- OUTSIDE RECORDS SUMMARY | ~2019-09-09 | XMS | Encounter Summary ---
Demographics + + + | Address | [address] | | | [place] [address] | + + + | Home Phone | | + + + | Preferred Language | Unknown | + + + | Marital Status | | + + + | Adventist Affiliation | Unknown | + + + | Race | Unknown | + + + | Ethnic Group | Unknown | + + + Author + + + | Author | [facility] | | | and Carlosana | + + + | Organization | [facility] | | | and [...] [place], [place] | | | | | [address] | | + + + + + | Mao Rea | ECON | Unknown | | + + + + + | Meredith Rea | ECON | Unknown | | + + + + + | Iqra Medina | ECON | [address] | | | | | [place], [place] | | | | | [address] | | + + + + + | Maldonado Rea | ECON | Unknown | | + + + + + Care Team Providers + +------+ + | Care Plating Engineer Name | Role | Phone | [...] 2019 | | NEUROLOGY [place] | [address] | Management | | | | [address], | [place] [address] | | | | | [address] [place] | [place] | | | | | [place] [address] | [address] | | | | | [phone] | | | +--------+ + + + [...] [place] | | | | | | [id number] | | | | | | | | +--------+---------+ + + + documented as of this encounter Visit Diagnoses Not on filedocumented in this encounter"
--- OUTSIDE RECORDS SUMMARY | ~2019-09-09 | XMS | Encounter Summary ---
Demographics + + + | Address | [address] | | | [place] [address] | + + + | Home Phone | | + + + | Preferred Language | Unknown | + + + | Marital Status | | + + + | Tenriism Affiliation | Unknown | + + + | Race | Unknown | + + + | Ethnic Group | Unknown | + + + Author + + + | Author | [facility] | | | and [place]ana | + + + | Organization | [facility] | | | and [place]ana [...] [place], [place] | | | | | [address] | | + + + + + | Mao Rea | ECON | Unknown | | + + + + + | Meredith Rea | ECON | Unknown | | + + + + + | Iqra Medina | ECON | [address] | | | | | [place], [place] | | | | | [address] | | + + + + + | Maldonado Rea | ECON | Unknown | | + + + + + Care Team Providers + +------+ + | Care Digital Production Artist Name | Role | Phone | + [...] | | [address] | [place] [address] | | | | | [place] | [phone] | | | | | [address] | | | | | | [phone] | | | +--------+ + + + [...] [place] | | | | | | [address] | | | | | | | | +--------+---------+ + + + documented as of this encounter Visit Diagnoses Not on filedocumented in this encounter"
--- OUTSIDE RECORDS SUMMARY | ~2019-09-09 | XMS | Encounter Summary ---
Demographics + + + | Address | [address] | | | [place] [address] | + + + | Home Phone | | + + + | Preferred Language | Unknown | + + + | Marital Status | | + + + | Advent Affiliation | Unknown | + + + | Race | Unknown | + + + | Ethnic Group | Unknown | + + + Author + + + | Author | [facility] | | | and [place]ana | + + + | Organization | [facility] | | | [...] [place], [place] | | | | | [address] | | + + + + + | Mao Rea | ECON | Unknown | | + + + + + | Meredith Rea | ECON | Unknown | | + + + + + | Iqra Medina | ECON | [address] | | | | | [place], [place] | | | | | [address] | | + + + + + | Maldonado Rea | ECON | Unknown | | + + + + + Care Team Providers + +------+ + | Care Civil Engineer Name | Role | Phone | [...] | | [address] | [place] [address] | Anxiety; Hypothyroid | | | | [place] | [phone] |Hypothyroid | | | | [address] | | | | | | [phone] | | | +--------+ + + + [...] [place] | | | | | | [address] | | | | | | | [...]
--- OUTSIDE RECORDS SUMMARY | ~2019-09-09 | XMS | Encounter Summary ---
Demographics + + + | Address | [address] | | | [place] [address] | + + + | Home Phone | | + + + | Preferred Language | Unknown | + + + | Marital Status | | + + + | Hinduism Affiliation | Unknown | + + + | Race | Unknown | + + + | Ethnic Group | Unknown | + + + Author + + + | Author | [facility] | | | and [place]ana | + + + | Organization | [facility] | [...] [place], [place] | | | | | [address] | | + + + + + | Mao Rea | ECON | Unknown | | + + + + + | Meredith Rea | ECON | Unknown | | + + + + + | Iqra Medina | ECON | [address] | | | | | [place], [place] | | | | | [address] | | + + + + + | Maldonado Rea | ECON | Unknown | | + + + + + Care Team Providers + +------+ + | Care Sheet Writer Name | Role | Phone | + [...] | Lumbar | Tino, | [address] | | | | | radiculopath | Luis Carlos Lerner MD | [place], | | | | | y | [address] | [place] | | | | | Procedures | [place] | [address] | | | | | [place] INJECT | [place] | Phone: | | | | | ANES/STEROID | [address] | [phone] | | | | | FORAMEN | Phone: | Fax: | | | | | LUMBAR/SACRA | [phone] | [phone] | | | | | [address] IM[address] | Fax: | | | | | | GUIDE ,[address] | [phone] | | | | | | L[place]EL [place] | | | | | | | [...] + + | 07/24/ | Hospital | [facility] | Eric, | Lumbar radiculopathy | | 2018 | Encounter | MED CTR XRAY [address] | [address] | | | | [address] [place] | [place], | | | | | [place] [address] | [place] [address] | | | | | [phone] | [phone] | | | | | | | | | | | | Financial Aid ManagerChilo | | +--------+ + + + + [...] + + + +---------+ + + | [place]-3 Fatty | Take 2 capsules by | [...] mg by mouth | | 0 | 03/27/20 | | | (AZULFIDINE) 500 MG | [...] [place] | | | | | | [address] | | | | | | | [...] 4:50 | | | | | ONCE, Tue07/24/18 at 1700, For 1 | | PM [...] | | | | | Other, ONCE, Tue07/24/18 at 1700, | | PM PDT | [...]
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
--- OUTSIDE RECORDS SUMMARY | ~2019-09-09 | XMS | Encounter Summary ---
Demographics + + + | Address | [address] | | | [place] [address] | + + + | Home Phone | | + + + | Preferred Language | Unknown | + + + | Marital Status | | + + + | Sabianist Affiliation | Unknown | + + + | Race | Unknown | + + + | Ethnic Group | Unknown | + + + Author + + + | Author | [facility] | | | and [place] | + + + | Organization | [facility] | [...] [place], [place] | | | | | [address] | | + + + + + | Mao Rea | ECON | Unknown | | + + + + + | Meredith Rea | ECON | Unknown | | + + + + + | Iqra Medina | ECON | [address] | | | | | [place], [place] | | | | | [address] | | + + + + + | Maldonado Rea | ECON | Unknown | | + + + + + Care Team Providers + +------+ + | Care Rail Doweling Machine Operator Name | Role | Phone [...] | | [address] | [place] [address] | | | | | [place] | [phone] | | | | | [address] | | | | | | [phone] | | | +--------+---------+ + + + [...] from t tu original. Koby George MD [address] [place] [address], [address] [place], [place] [id number] FAX: NEUROSURGERY FOLLOW-UP CHIEF COMPLAINT: Chief Complaint [...] aterality: N/A; Surgeon: Koby George MD; Location: [facility] MAIN OR CURRENT MEDICATIONS: Current [...] [place] | | | | | | [address] | | | | | | | [...] + | [address] | [address] | [place] | [phone] | | [facility] | | [address] | | | - IMAGING | | | | + + + + + documented in this encounter Visit Diagnoses + + | Diagnosis | + + | S/P lumbar fusion - Primary Arthrodesis status | + + documented in this encounter
--- OUTSIDE RECORDS SUMMARY | ~2019-09-09 | XMS | Encounter Summary ---
Demographics + + + | Address | [address] | | | [place] [address] | + + + | Home Phone [...] + | Author | [facility] | | | and [place] | + + + | Organization | [facility] | | | and [...] [place], [place] | | | | | [address] | | + + + + + | Mao Rea | ECON | Unknown | | + + + + + | Meredith Rea | ECON | Unknown | | + + + + + | Iqra Medina | ECON | [address] | | | | | [place], [place] | | | | | [address] | | + + + + + | Maldonado Rea | ECON | Unknown | | + + + + + Care Team Providers + +------+ + | Care Scrap Sorter Name | Role | Phone | + +------+ + | Sherie Vela PA-C | PCP | | + +------+ + Reason for Visit + + + | Reason | Comments | + + + | Neurosurgery | [facility] Appointment | | Appointment | | + + + Encounter Details +--------+ + + + + | Date | Type | Department | Care Team | Description | +--------+ + + + + | 07/31/ | Telephone | [facility] | Koby George MD | Neurosurgery | | 2018 | | NEUROSURGERY [address] | [address] | Appointment ([place] | | | | [address] | [place] [address] | Appointment) | | | | [place] | [phone] | | | | | [address] | | | | | | [phone] | | | +--------+ + + + [...] [place] | | | | | | [address] | | | | | | | | +--------+---------+ + + + documented as of this encounter Visit Diagnoses Not on filedocumented in this encounter"
--- OUTSIDE RECORDS SUMMARY | ~2019-09-09 | XMS | Encounter Summary ---
Demographics + + + | Address | [address] | | | [place] [address] | + + + | Home Phone | | + + + | Preferred Language | Unknown | + + + | Marital Status | | + + + | Cheondoism Affiliation | Unknown | + + + | Race | Unknown | + + + | Ethnic Group | Unknown | + + + Author + + + | Author | [facility] | | | and [place] | + + + | Organization | [facility] | | | and [...] [place], [place] | | | | | [address] | | + + + + + | Mao Rea | ECON | Unknown | | + + + + + | Meredith Rea | ECON | Unknown | | + + + + + | Iqra Medina | ECON | [address] | | | | | [place], [place] | | | | | [address] | | + + + + + | Maldonado Rea | ECON | Unknown | | + + + + + Care Team Providers + +------+ + | Care Crawler Tractor Operator Name | Role | Phone | [...] | Logan Rios MD | [address] | | | | | Lumbar | [address] | [place], | | | | | radiculopath | [address] | [place] | | | | | y Lumbar | [place], | [address] | | | | | spondylosis | [place] [address] | Phone: | | | | | Left leg | Phone: | [phone] | | | | | weakness | [phone] | Fax: | | | | | Lower | Fax: | [phone] | | | | | extremity | [phone] | | | | | | numbness [...] + + + | Back Pain | lower back | + + + Evaluate & Treat (Routine) +--------+--------+ + + + + | Status | Reason | Specialty | Diagnoses / | Referred By | Referred To | | | | | Procedures | Contact | Contact | +--------+--------+ + + + + | Closed | | Physical | Diagnoses | Larry, | Logan Soto | | | | Medicine and | Low back | Brandon | Carmelita Rios MD [address] | | | | Rehabilitatio | pain | MD Sohail | [address] | | | | n | | [address] | [place], | | | | | | [place] | [place] [address] | | | | | | [place], [place] | Phone: | | | | | | [address] | [phone] | | | | | | Phone: | Fax: | | | | | | [phone] | [phone] | | | | | | Fax: | | | | | | | [phone] | | +--------+--------+ + + + + Encounter Details +--------+---------+ + + + | Date | Type | Department | Care Team | Description | +--------+---------+ + + + | 06/17/ | Office | [facility] | Logan Soto, | Lumbalgia (Primary | | 2013 | Visit | PHYSIATRY [address] | [address] | Dx); Lumbar | | | | [address] [place], | [place], [place] | radiculopathy; | | | | [place] [address] | [address] | Lumbar spondylosis; | | | | [phone] | | Left leg weakness; | | | | | | Lower extremity | | | | | | numbness; History of | | | | | | rheumatoid | | | | | | arthritis; Marijuana | | | | | | smoker | +--------+---------+ + + + Social History [...] + + + | Blood Pressure | 116/60 | 06/17/2014 1:11 PM | | | | | PDT | | + + + + + | Pulse | 74 | 06/17/2014 1:11 PM | | | | | PDT | | + + + + + | Temperature | - | - | | + + + + + | Respiratory Rate | 18 | 06/17/2014 1:11 PM | | | | | PDT | | + + + + + | Oxygen Saturation | - | - | | + + + + + | Inhaled Oxygen | - | - | | | Concentration | | | | + + + + + | Weight | 82.6 kg (182 lb) | 06/17/2014 1:11 PM | | | | | PDT | | + + + + + | Height | 177.8 cm (5' 10") | 06/17/2014 1:11 PM | | | | | PDT | | + + + + + | Body Mass Index | 26.11 | 06/17/2014 1:11 PM | | | | | PDT | | + + + + + documented in this encounter Patient Instructions Patient Instructions Logan Soto MD - 06/17/2014 1:42 PM PDTA MRI has been requested. Please complete the requested imaging. Within one week, you should receive a call to sche dule your MRI. If you have not heard from anyone within one week, please call the clinic. The results of your MRI will be reviewed at your next appointment. If your MRI demonstrates any emergent results, the clinic will contact you. X-rays have been requested. Please go to the x-ray department after your appointment to co mplete these x-rays. The results of your x-rays will be reviewed at your next appointment. If your x-rays demonstrate any emergent results, the clinic will contact you. Return to the clinic in 2-3 weeks. documented in this encounter Progress Notes Logan Soto MD - 06/17/2014 1:45 PM PDTThis office note has been dictated. Job ID# [id number] signed by Logan Soto MD at 06/17/2014 2:01 PM Citlalli Pendleton RN - 06/17/2014 1:13 PM PDTC/o lower back pain, rated 7/10. Taking medical marijuana for pa in. Pain started few months ago. Hx: rhematoid arthritis. Logan Betts MD - 06/17/2014 12:00 AM PDT [facility] [address] [place] [address] FAX: [phone] OFFICE VISIT PHYSICAL MEDICINE REHABILITATION CONSULT CONSULT REQUESTED BY: Brandon Juarez MD DATE OF SERVICE: 06/17/2014 PATIENT IDENTIFICATION: A 61-year-old male with history of rheumatoid arthritis, low back p ain radiating into the left lower extremity with left lower extremity weakness. HISTORY OF PRESENT ILLNESS: Mr. Rea indicates that his back pain is a 6/10 on a numerica l pain scale. Pain is constant in timing. Pain can be sharp in quality. Back pain started i n his 30s. Back pain has been significantly worse in the last year. Pain is increased with getting up out of a chair pain is increased with carrying any object. Pain is reduced with heat and sitting with his back in a position. He indicates that sometimes he has pain trave ling into the left lower extremity, primarily over the anterior thigh. He denies any pain t raveling past the knee. He reports that he gets numbness and paresthesia in both feet. He r eports some weakness, heaviness within the leg. He denies bowel or bladder incontinence. He does report bladder urgency, which has been present for 10 years. He recently completed a course of physical therapy. Physical therapy was completed around 6 weeks ago. Despite phys ical therapy for his back, back pain persists. He has never had any interventional injectio ns into his back. He did see a chiropractor before 2007. This is prior to him being diagnos ed with rheumatoid arthritis. He has never had any surgery on his back. He has never had an y acupuncture treatments. He has been on medications for her pain and psychiatric treatment s. He uses marijuana 4 times per day for pain control. He uses [employer]. He uses gabapenti n and Remeron. ALLERGIES: NO KNOWN DRUG ALLERGIES. CURRENT MEDICATIONS 1. Fosamax 70 mg once a week. 2. Vitamin C 500 mg daily. 3. Calcium carbonate with vitamin D daily. 4. Folic acid daily. 5. Diclofenac-misoprostol 75/0.2 mg 2 times daily. 6. Fish oil daily. 7. Gabapentin 400 mg 2 capsules 3 times per day. 8. Glucosamine chondroitin. 9. Plaquenil 200 mg 2 tablets daily. 10. Remicade IV. 11. Arava 10 mg daily. 12. Lisinopril 10 mg daily. 13. [place] 300 mg 3 times per day. 14. Loratadine 10 mg daily. 15. Remeron 60 mg at bedtime. 16. Multivitamin daily. 17. Relafen 750 mg p.r.n. 18. Zyprexa 75 mg half tablet daily. 19. Omeprazole daily. 20. Zoloft 100 mg daily. 21. Simvastatin 40 mg daily. 22. Sulfasalazine 500 mg 3 tablets 2 times daily. 23. Tocilizumab 800 units every 4 weeks. 24. Geodon 80 mg 2 times daily. PAST MEDICAL HISTORY: He reports history of rheumatoid arthritis. He reports a history of h igh blood pressure and history of high cholesterol. He reports a history of depression and neuropathy in his feet. He was diagnosed with stage I colon cancer in 2003. He had a surger y. PAST SURGICAL HISTORY: He had colon surgery in 2003. He had umbilical hernia repair 2010. Kidney stone in 1988. He has had knee surgery, shoulder surgeries, tonsillectomy and eye casiano rgery all in the . FAMILY MEDICAL HISTORY: He reports that on mother's side of the family there is history of mental illness and alcoholism. On father's side of the family there is a history of alcohol ism and heart problems. Father from heart attack at age 68. Mother from depression and suicide at age 34. SOCIAL MEDICAL HISTORY: Mr. Rea is retired. 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 He indicates that he smokes marijuana 4 times per day for pain control. He quit using tobacco in 1981. He denies consumption of alcohol. Lives with his . REVIEW OF SYSTEMS: Mr. Rea denies fever, chills, shortness of breath, or chest pain. De nies skin breakdown or rash. Denies incontinence of bowel or bladder. All other review of s ystems negative. PHYSICAL EXAMINATION VITAL SIGNS: Heart rate 74, respiratory rate 18, blood pressure 116/60, weight 182 pounds, height 5 foot 10 inches. GENERAL: No acute distress. Alert and oriented to person, place, time and situation. HEENT : Extraocular muscles intact. Sclerae clear. Pupils equal, reactive to light and accommodat ion. NECK: Normal range of motion. Spurling test negative. Axial loading test negative. HEART: Regular rate and rhythm. No murmurs, no gallops. LUNGS: Clear to auscultation. No wheezing, no crackles. ABDOMEN: Nontender. Positive for bowel sounds. BACK: Slight asymmetry. Tenderness to palpation over lumbar paraspinal muscles and lumbar b kennedy spine. Tenderness to palpation over lumbar facet joints. Lumbar facet loading test posi tive. Seated straight leg raise positive on the left, negative on the right. EXTREMITIES: Reveals no clubbing, cyanosis or edema. There is hair loss with the lower extremities. Ther e is no hair on the legs bilaterally. There is fasciculation noted in the left gastroc. NEUROLOGICAL: Exam demonstrates intact memory, concentration and speech. Cranial nerves int act. Sensory reduced in left lower extremity, primarily over L4 dermatome. Sensory reduced in right lower extremity over L4 and L3 dermatomes. Reflexes are 2+ over right patella. Lef t patellar reflex could not be elicited. 1+ Achilles reflexes bilaterally. No clonus to eit her ankle. Strength is weak in the left lower extremity with 4/5 ankle dorsiflexion and 4/5 knee extension and 4/5 hip flexion. This is opposed to the right lower extremity, which em s 5/5 hip flexion, knee flexion, knee extension, ankle dorsiflexion. Ankle plantar flexion strength is 5/5 bilaterally. Coordination intact in all 4 extremities. DATABASE: Lumbar spine x-ray, imaging personally reviewed by me from 04/05/2014 demonstrate s severe degenerative disk disease changes at L2-3 and with loss of disk space. There are s ome reactive changes within the bone as well. It appears that elements of the bone have inc reased in density at this level. Underlying facet disease, spinal stenosis, neural foramina l narrowing, etc. cannot be assessed on x-ray and no lumbar MRI available for review. IMPRESSION 1. LUMBALGIA, ICD-9 724.2. 2. LEFT L3 RADICULOPATHY BY CLINICAL PRESENTATION, ICD-9 724.4. 3. LEFT LEG WEAKNESS, ICD-9 729.89. 4. BILATERAL LOWER EXTREMITY NUMBNESS, ICD-9 782.0. 5. HISTORY OF RHEUMATOID ARTHRITIS, ICD-9 V13.4. 6. MARIJUANA SMOKER, ICD-9 305.20. PLAN: Mr. Rea has back pain. He has weakness in the left lower extremity, has dermatomal sensory loss in both lower extremities. He has severe spondylosis seen on lumbar x-ray. He has taken anti-inflammatory medications on a routine basis. He completed a course of physi akila therapy. Despite this, he continues to have back pain as well as lower extremity weakne ss. I suspect lumbar radiculopathy. He may have spinal stenosis as well. Facet arthritis, vinita hu his history of rheumatoid arthritis, may also be a co-existing condition. At this poin t, I am requesting lumbar x-rays with flexion and extension views to see if there is any in stability within the lumbar spine, primarily at L2-3. I am also requesting a lumbar MRI to evaluate for neural foraminal narrowing and facet arthritis, lumbar spinal stenosis. He rosana l return to the clinic in 2 weeks' time to review results of his imaging and discuss future treatment plans. We discussed that if there is severe neural foraminal narrowing or imping ement, neurosurgery consult may be requested. We discussed that he should continue home exe rcise program as outlined by physical therapy. May consider epidural steroid injection in t he future. He is already on respectable doses of gabapentin, which may be helpful for neuro pathic pain. He is also on Remeron. I am not sure that I want to make any adjustments to an tidepressant medication for neuropathic pain given his medical history in that he is alread y on a number of antidepressants. There is limited medication options available for him at this time. For now he will continue home exercise program, obtain requested MRI and x-rays. He will return to the clinic and will discuss if further conservative measures may be help ful such as epidural steroid injections. If not, will likely request neurosurgical consulta tion. With reactive change in bone, I also have to question the possibility of diskitis. Chucho santana, he has no fever, no chills. He is, however, on immunosuppressants for rheumatoid arthr itis. MRI of lumbar spine may also be helpful and forthcoming in evaluating for presence of underlying infection. His pain is not acute. He does not have point tenderness over the L2 -3 region. I believe that the probability of diskitis is low. Greater than 45 minutes was spent [id number] today with Mr. Rea, over half of which wa s spent formulating and discussing his medical treatment plan. Logan Soto Jr, MD GEM / TB JOB #: [id number] cc: Brandon Juarez MD A M PDTdocumented in this encounter Plan of [...] [place] | | | | | | [address] | | | | | | | | +--------+---------+ + + + documented as of this encounter Results MRI Lumbar Spine wo [...] + | [facility] | | | [phone] | + +---------+ + + | [facility] | | | [phone] | + +---------+ + + XR Lumbar Spine 4 + Vw (06/17/2014 [...] + | [facility]ANEOUS LAB | | | [phone] | + +---------+ + + | [facility] | | | [phone] | + +---------+ + + documented in this encounter Visit Diagnoses + + | Diagnosis | + + | Lumbalgia - Primary Lumbago | + + | Lumbar radiculopathy Thoracic or lumbosacral neuritis or radiculitis, unspecified | + + | Lumbar spondylosis Lumbosacral spondylosis without myelopathy | + + | Left leg weakness Other musculoskeletal symptoms referable to limbs | + + | Lower extremity numbness Disturbance of skin sensation | + + | History of rheumatoid arthritis Personal history of arthritis | + + | Marijuana smoker Cannabis abuse, unspecified | + + documented in this encounter
--- OUTSIDE RECORDS SUMMARY | ~2019-09-09 | XMS | Encounter Summary ---
Demographics + + + | Address | [address] | | | [place] [address] | + + + | Home Phone [...] | Organization | [facility] [...] [place], [place] | | | | | [address] | | + + + + + | Mao Rea | ECON | Unknown | | + + + + + | Meredith Rea | ECON | Unknown | | + + + + + | Iqra Medina | ECON | [address] | | | | | [place], [place] | | | | | [address] | | + + + + + | Maldonado Rea | ECON | Unknown | | + + + + + Care Team Providers + +------+ + | Care Hand Counter Name | Role | Phone | + +------+ + | Brandon Juarez MD | PCP | | + +------+ + Encounter Details +--------+ + + + + | Date | Type | Department | Care Team | Description | +--------+ + + + + | 06/17/ | Hospital | [facility] | Logan Soto, | Lumbar radiculopathy | | 2016 | Encounter | [facility] | [address] | | | | | [address] [place] | [place] | | | | | [place] | [address] | | | | | [address] | | | | | | [phone] | | | +--------+ + + + [...] [place] | | | | | | [id number] | | | | | | | | +--------+---------+ + + + documented as of this encounter Procedures + +--------+ + + + | Procedure Name | Priori | Date/Time | Associated Diagnosis | Comments | | | ty | | | | + +--------+ + + + | BASIC METABOLIC | Routin | 06/17/2016 | Lumbar | Results for this | | PANEL | e | 9:55 AM | radiculopathy | procedure are in the | | | | PDT | | results section. | + +--------+ + + + documented in this encounter Results Basic Metabolic Panel (06/17/2016 9:55 AM PDT) + + + + + [...] + + + + | K | 3.8 | 3.5 - 5.1 | [facility] | | | | | mmol/L | [facility] | | | | | [facility] | [facility] | [facility] - | | | | | | LABORATORY | | + + + + + + | Cl | 106 | 98 - 109 mmol/L | [facility] | | | | | | [facility] | | | | | | [facility] | | | | | | [facility] - | | | | | | LABORATORY | | + + + + + + | CO2 | 25 | 24 - 31 mmol/L | [facility] | | | | | | [facility] | | | | | | [facility] | | | | | | [facility] - | | | | | | LABORATORY | | + + + + + + | Anion Gap | 9 | 3 - 16 mmol/L | [facility] | | | | | | [facility] | | | | | | [facility] | | | | | | [facility] - | | | | | | LABORATORY | | + + + + + + | Glucose | 97 | 70 - 109 mg/dL | [facility] | | | | | | [facility] | | | | | | [facility] | | | | | | CENTER - | | | | | | LABORATORY | | + + + + + + | BUN | 11 | 7 - 18 mg/dL | [facility] | | | | | | [facility] | | | | | | [facility]ICAL | | | | | | CENTER - | | | | | | LABORATORY | | + + + + + + | Creatinine | 0.85 | 0.60 - 1.30 | [facility] | | | | | mg/dL | [facility] | | | | | | MEDICAL | | | | | | CENTER - | | | | | | LABORATORY | | + + + + + + | eGFR if not | >60Comment: GLOMERULAR | >=60 | [facility] | | | | FILTRATION | mL/min/1.73m2 | [facility] | | | NAMIBIAN | RATE,ESTIMATED | | MEDICAL | | | | mL/min/1.07x8Rvlf than | | CENTER - | | [...] + + + + | BUN/Creatin | 12.9 | | [facility] | | | ine [...] + + | [facility] [facility] | [address] | [place], [place] | [phone] | | [facility] | | [address] | | | - LABORATORY | | | | + + + + + documented in this encounter Visit Diagnoses + + | Diagnosis | + + | Lumbar radiculopathy Thoracic or lumbosacral neuritis or radiculitis, unspecified | + + documented in this encounter"
--- OUTSIDE RECORDS SUMMARY | ~2019-09-09 | XMS | Encounter Summary ---
Demographics + + + | Address | [address] | | | [place] [address] | + + + | Home Phone | | + + + | Preferred Language | Unknown | + + + | Marital Status | | + + + | Sikh Affiliation | Unknown | + + + | Race | Unknown | + + + | Ethnic Group | Unknown | + + + Author + + + | Author | [facility] | | | and [place] | + + + | Organization | [facility] | | | and [place] [...] [place], [place] | | | | | [address] | | + + + + + | Mao Rea | ECON | Unknown | | + + + + + | Meredith Rea | ECON | Unknown | | + + + + + | Iqra Medina | ECON | [address] | | | | | [place], [place] | | | | | [address] | | + + + + + | Maldonado Rea | ECON | Unknown | | + + + + + Care Team Providers + +------+ + | Care Research Technologist Name | Role | Phone | [...] + + | 06/30/ | Office | [facility] | Logan Sands, | Chronic left-sided | | 2016 | Visit | PHYSIATRY [address] | [address] | low back pain with | | | | [place], | [place], [place] | left-sided sciatica | | | | [place] [address] | [address] | (Primary Dx); Lumbar | | | | [phone] | | radiculopathy; Left | | | [...] clinic. Your injection will be performed at [facility]. Please take [...] MD - 06/30/2016 11:12 AM PDT [facility] PHYSIATRY [address] [facility] [address] OFFICE NOTE LOGAN SANDS JR, MD Patient: RACHEL REA Admitting: MR #: [id number] LOC: PT TYPE: Adm Date: 06/30/2016 : [...] 06/30/2016 11:12:53 Transcribed on 07/01/2016 00:00:39 by [facility] job# [id number] Confirmation #: [id number] cc: BRANDON JUAREZ MD Logan Sands MD - 06/30/2016 10:57 AM PDTThis office note has been dictated. Report Confirmation# [id number] signed by Logan Sands MD at 06/30/2016 [...] [place] | | | | | | [address] | | | | | | | [...]
--- OUTSIDE RECORDS SUMMARY | ~2019-09-09 | XMS | Encounter Summary ---
Demographics + + + | Address | [address] | | | [place] [address] | + + + | Home Phone [...] | + + + | Organization | [facility] | | | and [...] [place], [place] | | | | | [address] | | + + + + + | Mao Rea | ECON | Unknown | | + + + + + | Meredith Rea | ECON | Unknown | | + + + + + | Iqra Medina | ECON | [address] | | | | | [place], [place] | | | | | [address] | | + + + + + | Maldonado Rea | ECON | Unknown | | + + + + + Care Team Providers + +------+ + | Care Weaver Apprentice Name | Role | Phone | [...] | | [address] | [place] [address] | | | | | [place] | [phone] | | | | | [address] | | | | | | [phone] | | | +--------+ + + + [...] [place] | | | | | | [address] | | | | | | | | +--------+---------+ + + + documented as of this encounter Visit Diagnoses Not on filedocumented in this encounter"
--- OUTSIDE RECORDS SUMMARY | ~2019-09-09 | XMS | Encounter Summary ---
Demographics + + + | Address | [address] | | | [place] [address] | + + + | Home Phone [...] Organization | [facility] | | | and [...] [place], [place] | | | | | [address] | | + + + + + | Mao Rea | ECON | Unknown | | + + + + + | Meredith Rea | ECON | Unknown | | + + + + + | Iqra Medina | ECON | [address] | | | | | [place], [place] | | | | | [address] | | + + + + + | Maldonado Rea | ECON | Unknown | | + + + + + Care Team Providers + +------+ + | Care Standard Machine Stitcher Name | Role | Phone | + +------+ + | Sherie Vela PA-C | PCP | | + +------+ + Encounter Details +--------+ + + + + | Date | Type | Department | Care Team | Description | +--------+ + + + + | 03/07/ | Orders Only | [facility] [place] | Luis Carlos Jiménez | Lumbar radiculopathy | | 2018 | | PHYSIATRY [address] | TMD [address] | (Primary Dx) | | | | [place], | [place] | | | | | [place] [address] | [address] | | | | | [phone] | | | +--------+ + + + [...] | Visit | | [address] | | | | | | [place] | | | | | | [address] | | | | | | | [...] + + | Performing | Address | City[facility] | Phone Number | | Organization [...]
--- OUTSIDE RECORDS SUMMARY | ~2019-09-09 | XMS | Encounter Summary ---
Demographics + + + | Address | [address] | | | [place] [address] | + + + | Home Phone | | + + + | Preferred Language | Unknown | + + + | Marital Status | | + + + | Islam Affiliation | Unknown | + + + | Race | Unknown | + + + | Ethnic Group | Unknown | + + + Author + + + | Author | [facility] | | | and [place] | + + + | Organization | [facility] | | | and [place] [...] [place], [place] | | | | | [address] | | + + + + + | Mao Rea | ECON | Unknown | | + + + + + | Meredith Rea | ECON | Unknown | | + + + + + | Iqra Medina | ECON | [address] | | | | | [place], [place] | | | | | [address] | | + + + + + | Maldonado Rea | ECON | Unknown | | + + + + + Care Team Providers + +------+ + | Care Seed Tester Name | Role | Phone | + [...] | | [address] | [place] [address] | (Primary Dx); S/P | | | | [place], [place] | [phone] | lumbar fusion; | | | | [address] | | Synovial cyst of | | | | [phone] | | lumbar facet joint; | | [...] from t tu original. Koby George MD [address] [place] [address], [address] [place], [place] [id number] FAX: NEUROSURGERY FOLLOW-UP CHIEF COMPLAINT: Chief Complaint [...] aterality: N/A; Surgeon: Koby George MD; Location: [facility] OR CURRENT MEDICATIONS: Current Outpatient [...] immunosuppressant longer after surgery as well to accountant helper in the fusion process. He would [...] [place] | | | | | | [address] | | | | | | | [...]
--- OUTSIDE RECORDS SUMMARY | ~2019-09-09 | XMS | Encounter Summary ---
Demographics + + + | Address | [address] | | | [place] [address] | + + + | Home Phone | | + + + | Preferred Language | Unknown | + + + | Marital Status | | + + + | Synagogue Affiliation | Unknown | + + + | Race | Unknown | + + + | Ethnic Group | Unknown | + + + Author + + + | Author | [facility] | | | and [place] | + + + | Organization | [facility] [...] [place], [place] | | | | | [address] | | + + + + + | Mao Rea | ECON | Unknown | | + + + + + | Meredith Rea | ECON | Unknown | | + + + + + | Iqra Medina | ECON | [address] | | | | | [place], [place] | | | | | [address] | | + + + + + | Maldonado Rea | ECON | Unknown | | + + + + + Care Team Providers + +------+ + | Care Education Instructor Name | Role | Phone | [...] Changes | NEUROSURGERY [address] | S, [employer] On [employer] Web Developer | | | | | [address] | | | | | | [place] | | | | | | [address] | | | | | | [phone] | | | +--------+ + + + [...] [place] | | | | | | [id number] | | | | | | | | +--------+---------+ + + + documented as of this encounter Visit Diagnoses Not on filedocumented in this encounter"
--- OUTSIDE RECORDS SUMMARY | ~2019-09-09 | XMS | Encounter Summary ---
Demographics + + + | Address | [address] | | | [place] [address] | + + + | Home Phone | | + + + | Preferred Language | Unknown | + + + | Marital Status | | + + + | Hinduism Affiliation | Unknown | + + + | Race | Unknown | + + + | Ethnic Group | Unknown | + + + Author + + + | Author | [facility] | | | and [place] | + + + | Organization | [facility] | | | and Carlosana [...] [place], [place] | | | | | [address] | | + + + + + | Mao Rea | ECON | Unknown | | + + + + + | Meredith Rea | ECON | Unknown | | + + + + + | Iqra Medina | ECON | [address] | | | | | [place], [place] | | | | | [address] | | + + + + + | Maldonado Rea | ECON | Unknown | | + + + + + Care Team Providers + +------+ + | Care Director Of Cardiac Rehabilitation Name | Role | Phone | + +------+ + | Brandon Juarez MD | PCP | | + +------+ + Encounter Details +--------+ + + + + | Date | Type | Department | Care Team | Description | +--------+ + + + + | 03/07/ | Hospital | [facility] | Ender Mora | Flat back syndrome; | | 2014 | Encounter | MED CTR XRAY [address] | [address] | Lumbar stenosis with | | | | [place] | [address]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 Stable [...] [address] | [place] | [phone] | | [facility] | | [address] | | | - IMAGING | | [...]
--- OUTSIDE RECORDS SUMMARY | ~2019-09-09 | XMS | Encounter Summary ---
Demographics + + + | Address | [address] | | | [place] [address] | + + + | Home Phone [...] | + + + | Organization | [facility] | | | and [...] [place], [place] | | | | | [address] | | + + + + + | Mao Rea | ECON | Unknown | | + + + + + | Meredith Rea | ECON | Unknown | | + + + + + | Iqra Medina | ECON | [address] | | | | | [place], [place] | | | | | [address] | | + + + + + | Maldonado Rea | ECON | Unknown | | + + + + + Care Team Providers + +------+ + | Care Adult High School Instructor Name | Role | Phone | + +------+ + | Sherie Vela PA-C | PCP | | + +------+ + Encounter Details +--------+ + + + + | Date | Type | Department | Care Team | Description | +--------+ + + + + | 11/24/ | Orders Only | [facility] [place] | Luis Carlos Jiménez | Lumbar radiculopathy | | 2019 | | PHYSIATRY [address] | T[address] | (Primary Dx) | | | | [place], | [address] [place] [address] | | | | | [place] [address] | [address] | | | | | [phone] | | | +--------+ + + + [...] [place] | | | | | | [address] | | | | | | | [...] + + | Performing | Address | City/State[facility] | Phone Number | | Organization | [...]
--- OUTSIDE RECORDS SUMMARY | ~2019-09-09 | XMS | Encounter Summary ---
Demographics + + + | Address | [address] | | | [place] [address] | + + + | Home Phone | | + + + | Preferred Language | Unknown | + + + | Marital Status | | + + + | Zoroastrian Affiliation | Unknown | + + + | Race | Unknown | + + + | Ethnic Group | Unknown | + + + Author + + + | Author | [facility] | | | and [place] | + + + | Organization | [facility] | | | and [place]ana [...] [place], [place] | | | | | [address] | | + + + + + | Mao Rea | ECON | Unknown | | + + + + + | Meredith Rea | ECON | Unknown | | + + + + + | Iqra Medina | ECON | [address] | | | | | [place], [place] | | | | | [address] | | + + + + + | Maldonado Rea | ECON | Unknown | | + + + + + Care Team Providers + +------+ + | Care Teamsite Developer Name | Role | Phone | + +------+ + | Sherie Vela PA-C | PCP | | + +------+ + Encounter Details +--------+ + + + + | Date | Type | Department | Care Team | Description | +--------+ + + + + | 08/09/ | Hospital | [facility] | Pedro Riggins | S/P lumbar fusion | | 2017 | Encounter | MED CTR XRAY [address] | [address] | | | | | [place] | [address] [facility] [address] | | | | | [place] [address] | [place], [place] | | | | | [phone] | [address] | | | | | | | [...] [place] | | | | | | [address] | | | | | | | | +--------+---------+ + + + documented as of this encounter Procedures + +--------+ + + + | Procedure Name | Priori | Date/Time | Associated Diagnosis | Comments | | | ty | | | | + +--------+ + + + | XR LUMBAR SPINE 2 OR | Routin | 08/09/2017 | S/P lumbar fusion | Results for this | | 3 VW | e | 12:00 PM | | procedure are in the | | | | PDT | | results section. | + +--------+ + + + documented in this encounter Results XR Lumbar Spine 2 or 3 Vw (08/09/2017 12:00 PM PDT) + + | Specimen | + + | | + + + + + | Narrative | Performed At | + + + | XR LUMBAR SPINE 2 OR 3 VW 08/09/2017 12:00 PM HISTORY: Postop. | [facility] | | COMPARISON: 05/24/2017 FINDINGS: Frontal and lateral views of | | | the lumbar spine. Posterior and interbody fusion changes from L2 | | | through the sacrum. Question slight perihilar lucency involving the | | | left sacroiliac screw which is similar to slightly increased in | | | prominence since prior examination. Stable position of the interbody | | | graft markers. Stable spinal alignment. No interval compression | | | deformities. IMPRESSION - Question slight loosening of the | | | left sacroiliac screw. Otherwise intact posterior and interbody | | | fusion changes from L2 through the sacrum. Dictated and Signed | | | by: Jerald Arias MD Electronically signed: 08/09/2017 1:00 PM | | + + + + + | Procedure Note | + + | Alexis, Rad Results In - 08/09/2017 1:03 PM PDT XR LUMBAR SPINE 2 OR 3 VW 08/09/2017 | | 12:00 PMHISTORY: Postop.COMPARISON: 05/24/2017FINDINGS: Frontal and lateral views of the | | lumbar spine. Posterior andinterbody fusion changes from L2 through the sacrum. | | Question slight perihilarlucency involving the left sacroiliac screw which is similar to | | slightlyincreased in prominence since prior examination. Stable position of | | theinterbody graft markers. Stable spinal alignment. No interval | | compressiondeformities. IMPRESSION -Question slight loosening of the left sacroiliac | | screw.Otherwise intact posterior and interbody fusion changes from L2 through thesacrum. | | Dictated and Signed by: Jerald Arias MD Electronically signed: 08/09/2017 1:00 PM | |increased in prominence since prior examination. Stable position of the | |interbody graft markers. Stable spinal alignment. No interval compression | |deformities. | | | |IMPRESSION - | | | |Question slight loosening of the left sacroiliac screw. | | | |Otherwise intact posterior and interbody fusion changes from L2 through the | |sacrum. | | | |Dictated and Signed by: Jerald Arias MD | | Electronically signed: 08/09/2017 1:00 PM | + + + +---------+ + [...]
--- OUTSIDE RECORDS SUMMARY | ~2019-09-09 | XMS | Encounter Summary ---
Demographics + + + | Address | [address] | | | [place] [address] | + + + | Home Phone [...] + | Author | [facility] | | | and [place] | + + + | Organization | [facility] | [...] [place], [place] | | | | | [address] | | + + + + + | Mao Rea | ECON | Unknown | | + + + + + | Meredith Rea | ECON | Unknown | | + + + + + | Iqra Medina | ECON | [address] | | | | | [place], [place] | | | | | [address] | | + + + + + | Maldonado Rea | ECON | Unknown | | + + + + + Care Team Providers + +------+ + | Care Semiconductor Technician Name | Role | Phone | [...] | Lumbar | [place], | [address] | | | | | radiculopath | Luis Carlos Lerner MD | [place], | | | | | y | [address] | [place] | | | | | Procedures | [address] [place] | [address] | | | | | [place] INJECT | [place] | Phone: | | | | | ANES/STEROID | [address] | [phone] | | | | | FORAMEN | Phone: | Fax: | | | | | LUMBAR/SACRA | [phone] | [phone] | | | | | L W IMG | Fax: | | | | | | GUIDE ,1 | [phone] | | | | | | LEVEL [...] + + | 03/24/ | Hospital | [facility] | Luis Carlos Jiménez | Lumbar radiculopathy | | 2018 | Encounter | MED CTR XRAY [address] | T, [address] | | | | | [place] | ST [place], [place] | | | | | [place] [address] | [id number] | | | | | [phone] | | | | | | | Tissue Technologist, [facility] | | +--------+ + + + [...] [place] | | | | | | [id number] | | | | | | | [...]
--- OUTSIDE RECORDS SUMMARY | ~2019-09-09 | XMS | Encounter Summary ---
Demographics + + + | Address | [address] | | | [place] [address] | + + + | Home Phone [...] | Organization | [facility] | | | and [place]ana [...] [place], [place] | | | | | [address] | | + + + + + | Mao Rea | ECON | Unknown | | + + + + + | Meredith Rea | ECON | Unknown | | + + + + + | Iqra Medina | ECON | [address] | | | | | [place], [place] | | | | | [address] | | + + + + + | Maldonado Rea | ECON | Unknown | | + + + + + Care Team Providers + +------+ + | Care Tire Spotter Name | Role | Phone | + +------+ + | Sherie Vela PA-C | PCP | | + +------+ + Reason for Visit + + + | Reason | Comments | + + + | Appointment | | + + + Encounter Details +--------+ + + + + | Date | Type | Department | Care Team | Description | +--------+ + + + + | 04/04/ | Telephone | [facility] [place] | Koby George MD | Appointment | | 2018 | | NEUROSURGERY [address] | [address] | | | | | [address] | [place] [address] | | | | | [place] | [phone] | | | | | [address] | | | | | | [phone] | | | +--------+ + + + [...] [place] | | | | | | [id number] | | | | | | | | +--------+---------+ + + + documented as of this encounter Visit Diagnoses Not on filedocumented in this encounter"
--- OUTSIDE RECORDS SUMMARY | ~2019-09-09 | XMS | Encounter Summary ---
Demographics + + + | Address | [address] | | | [place] [address] | + + + | Home Phone | | + + + | Preferred Language | Unknown | + + + | Marital Status | | + + + | Sikh Affiliation | Unknown | + + + | Race | Unknown | + + + | Ethnic Group | Unknown | + + + Author + + + | Author | [facility] | | | and [place] | + + + | Organization | [facility] | | | [...] [place], [place] | | | | | [address] | | + + + + + | Mao Rea | ECON | Unknown | | + + + + + | Meredith Rea | ECON | Unknown | | + + + + + | Iqra Medina | ECON | [address] | | | | | [place], [place] | | | | | [address] | | + + + + + | Maldonado Rea | ECON | Unknown | | + + + + + Care Team Providers + +------+ + | Care Rail Project Engineer Name | Role | Phone | [...] | | | lordosis | | [address] | | | | | (acquired) | | [place], | | | | | Other | | [place] [address] | | | | | lordosis | | Phone: | | | | | (acquired) | | [phone] | | | | | Procedures | | Fax: | | | | | [place] | | [phone] | | | | | ARTHRODESIS | [...] + + | 12/02/ | Hospital | [facility] | Koby George MD | Acquired | | 2015 | Encounter | MED CTR XRAY [address] | [address] | spondylolisthesis | | | | [place] | [place] [address] | | | | | [place] [address] | [phone] | | | | | [phone] | | | +--------+ + + + [...] [place] | | | | | | [address] | | | | | | | | +--------+---------+ + + + documented as of this encounter Procedures + +--------+ + + + | Procedure Name | Priori | Date/Time | Associated Diagnosis | Comments | | | ty | | | | + +--------+ + + + | ZACHARY GISELLE STATS NO | Routin | 12/02/2014 | Acquired | Results for this | | CHARGE | e | 5:22 PM | spondylolisthesis | procedure are in the | | | | PST | | results section. | + +--------+ + + + documented in this encounter Results ZACHARY Jerome Stats No Charge (12/02/2014 5:22 PM PST) + + | Specimen | + + | | + + + + + | Narrative | Performed At | + + + | No Radiologist interpretation, please see Chart Review. | [facility] | | | [place] | | | [facility] | | | - IMAGING | + + + + + | Procedure Note | + + | 12/02/2014 5:24 PM PST No Radiologist interpretation, please see Chart Review. | + + + + + + + | Performing | Address | City/State/Zipcode | Phone Number | | Organization | | | | + + + + + | [facility] | [address] | [place] | [phone] | | [facility] | | [address] | | | - IMAGING | | | | + + + + + documented in this encounter Visit Diagnoses + + | Diagnosis | + + | Acquired spondylolisthesis | + + documented in this encounter"
--- OUTSIDE RECORDS SUMMARY | ~2019-09-09 | XMS | Encounter Summary ---
Demographics + + + | Address | [address] | | | [place] [address] | + + + | Home Phone [...] + | Organization | [facility] | | | and Carlosana [...] [place], [place] | | | | | [address] | | + + + + + | Mao Rea | ECON | Unknown | | + + + + + | Meredith Rea | ECON | Unknown | | + + + + + | Iqra Medina | ECON | [address] | | | | | [place], [place] | | | | | [address] | | + + + + + | Maldonado Rea | ECON | Unknown | | + + + + + Care Team Providers + +------+ + | Care School Coordinator Name | Role | Phone | [...] | 08/03/ | Office | [facility] [place] | Ender Mora | S/P lumbar fusion | | 2018 | Visit | NEUROSURGERY [address] | [address] | (Primary Dx); | | | | [address] | [address] | Spondylolisthesis of | | | | [place], [place] | [place] | lumbar region; | | | | [address] | [address] | Pseudoarthrosis of | | | | [phone] | | lumbar spine | +--------+---------+ + [...] encounter Patient Instructions Patient Instructions Abigail Thornton, Care Transport Nurse - 08/03/2018 9:30 AM PDTIt was a [...] from the original. Ender Mora PA-C [address] [facility] [place] [address] FAX: NEUROSURGERY FOLLOW-UP CHIEF COMPLAINT: Chief Complaint [...] 3 tablets on Mon, WED, and FRI Pangburn-3 Fatty Acids (FISH OIL) 1200 MG CAPS [...] apparent deficits with short or intermediate memory. CRANIAL NERVES: II: Acuity is intact. [...] Intrinsics 5 5 Ulnar Intrinsics 5 5 Animal Keeper Strength 5 5 Hip Flexion 5 4+ [...] [place] | | | | | | [phone] | | | | | | | [...]
--- OUTSIDE RECORDS SUMMARY | ~2019-09-09 | XMS | Encounter Summary ---
Demographics + + + | Address | [address] | | | [place] [address] | + + + | Home Phone [...] + | Organization | [facility] | | [...] [place], [place] | | | | | [address] | | + + + + + | Mao Rea | ECON | Unknown | | + + + + + | Meredith Rea | ECON | Unknown | | + + + + + | Iqra Medina | ECON | [address] | | | | | [place], [place] | | | | | [address] | | + + + + + | Maldonado Rea | ECON | Unknown | | + + + + + Care Team Providers + +------+ + | Care Cartridge Loading Operator Name | Role | Phone | + +------+ + | Sherie Vela PA-C | PCP | | + +------+ + Encounter Details +--------+ + + + + | Date | Type | Department | Care Team | Description | +--------+ + + + + | 06/01/ | Orders Only | [facility] [place] | Luis Carlos Jiménez | S/P lumbar fusion | | 2017 | | PHYSIATRY [address] | T[address] | (Primary Dx); | | | | [place], | [address] [place] [address] | Sacroiliitis, [place] | | | | [place] [address] | [address] | elsewhere classified | | | | [phone] | | (HCC) | +--------+ + + [...] [place] | | | | | | [address] | | | | | | | | +--------+---------+ + + + documented as of this encounter Results [place] Sacroiliac Injection Right (06/01/2017 1:12 PM PDT) + + | Specimen | + + | | + + + + + | Narrative | Performed At | + + + | | [facility] | | 06/01/2017Bilateral Sacroiliac Joint InjectionClinical History: | [facility] | | Sacroiliitis ICD-10 M46.1 Uziel Rea presents to the fluoroscopy [facility] | | suite for fluoroscopically guided bilateral [...] | [address] | [place] | [phone] | | [facility] | | [address] | | | - IMAGING | | | | + + + + + [place] Sacroiliac Injection Left (06/01/2017 1:12 PM PDT) + + | Specimen | + + | | + + + + + | Narrative | Performed At | + + + | | [facility] | | 06/01/2017Bilateral Sacroiliac Joint InjectionClinical History: | [facility] | | Sacroiliitis ICD-10 M46.1 Uziel Rea presents to the fluoroscopy [facility] | | suite for fluoroscopically guided bilateral [...] ST. | [address] | [place], [place] | [phone] | | [facility] | | [address] | | | - IMAGING | | | | + + + + + documented in this encounter Visit Diagnoses + + | Diagnosis | + + | S/P lumbar fusion - Primary Arthrodesis status | + + | Sacroiliitis, not elsewhere classified (HCC) Sacroiliitis, not elsewhere classified | + + documented in this encounter"
--- OUTSIDE RECORDS SUMMARY | ~2019-09-09 | XMS | Encounter Summary ---
Demographics + + + | Address | [address] | | | [place] [address] | + + + | Home Phone [...] + + + | Organization | [facility] | [...] [place], [place] | | | | | [address] | | + + + + + | Mao Rea | ECON | Unknown | | + + + + + | Meredith Rea | ECON | Unknown | | + + + + + | Iqra Medina | ECON | [address] | | | | | [place], [place] | | | | | [address] | | + + + + + | Maldonado Rea | ECON | Unknown | | + + + + + Care Team Providers + +------+ + | Care Loss Prevention Representative Name | Role | Phone | [...] | +--------+ + + + + | 09/03/ | Telephone | [facility] | Ender Mora | Appointment | | 2016 | | NEUROSURGERY [address] | [address] | | | | | [address] | [address] | | | | | [place], [place] | [place], [place] | | | | | [address] | [address] | | | | | [phone] | | | +--------+ + + + [...] [place] | | | | | | [address] | | | | | | | | +--------+---------+ + + + documented as of this encounter Visit Diagnoses Not on filedocumented in this encounter"
--- OUTSIDE RECORDS SUMMARY | ~2019-09-09 | XMS | Encounter Summary ---
Demographics + + + | Address | [address] | | | [place] [address] | + + + | Home Phone | | + + + | Preferred Language | Unknown | + + + | Marital Status | | + + + | Samaritan Affiliation | Unknown | + + + | Race | Unknown | + + + | Ethnic Group | Unknown | + + + Author + + + | Author | [facility] | | | and [place] | + + + | Organization | [facility] | | | and Carlosana [...] [place], [place] | | | | | [address] | | + + + + + | Moa Rea | ECON | Unknown | | + + + + + | Meredith Rea | ECON | Unknown | | + + + + + | Iqra Medina | ECON | [address] | | | | | [place], [place] | | | | | [address] | | + + + + + | Maldonado Rea | ECON | Unknown | | + + + + + Care Team Providers + +------+ + | Care Mural Artist Name | Role | Phone | [...] Changes | NEUROSURGERY [address] | [address] [employer] [address] | | | | | [address] | | | | | | [place] | | | | | | [address] | | | | | | [phone] | | | +--------+ + + + [...] [place] | | | | | | [id number] | | | | | | | | +--------+---------+ + + + documented as of this encounter Visit Diagnoses Not on filedocumented in this encounter"
--- OUTSIDE RECORDS SUMMARY | ~2019-09-09 | XMS | Encounter Summary ---
Demographics + + + | Address | [address] | | | [place] [address] | + + + | Home Phone | | + + + | Preferred Language | Unknown | + + + | Marital Status | | + + + | Gnosticist Affiliation | Unknown | + + + | Race | Unknown | + + + | Ethnic Group | Unknown | + + + Author + + + | Author | [facility] | | | and [place]ana | + + + | Organization | [facility] [...] [place], [place] | | | | | [address] | | + + + + + | Mao Rea | ECON | Unknown | | + + + + + | Mreedith Rea | ECON | Unknown | | + + + + + | Iqra Medina | ECON | [address] | | | | | [place], [place] | | | | | [address] | | + + + + + | Maldonado Rea | ECON | Unknown | | + + + + + Care Team Providers + +------+ + | Care Supervisor Transferring And Boxing Name | Role | Phone | + [...] (Primary Dx); S/P | | | | [place], [place] | [place], [place] | lumbar fusion | | | | [address] | [address] | | | | | [phone] | | | +--------+---------+ + + + [...] documented as of this encounter Progress Notes Pedor Riggins PA-C - 02/20/2018 10:30 AM PDTFormatting of this note might be differen t from the original. Pedro Riggins PA-C [address] [facility], [address] [place], [place] [address] FAX: NEUROSURGERY FOLLOW-UP CHIEF COMPLAINT: Chief Complaint [...] that he had a RFA done in [place], [place] in December 2017. 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
--- OUTSIDE RECORDS SUMMARY | ~2019-09-09 | XMS | Encounter Summary ---
Demographics + + + | Address | [address] | | | [place] [address] | + + + | Home Phone | | + + + | Preferred Language | Unknown | + + + | Marital Status | | + + + | Episcopal Affiliation | Unknown | + + + | Race | Unknown | + + + | Ethnic Group | Unknown | + + + Author + + + | Author | [facility] | | | and Carlosana | + + + | Organization | [facility] | | | and Carlosana [...] [place], [place] | | | | | [address] | | + + + + + | Mao Rea | ECON | Unknown | | + + + + + | Meredith Rea | ECON | Unknown | | + + + + + | Iqra Medina | ECON | [address] | | | | | [place], [place] | | | | | [address] | | + + + + + | Maldonado Rea | ECON | Unknown | | + + + + + Care Team Providers + +------+ + | Care Construction Specialist Name | Role | Phone | [...] | Specialty | Physical | Diagnoses | [place], | | | | Services | Therapy | Flat back | Ender | | | | Required | | syndrome | VIRY Ramos | | | | | | Lumbar | [address] | | | | | | stenosis | [address] | | | | | | with | [address] | | | | | | neurogenic | [place], | | | | | | claudication | [place] [address] | | | | | | S/P lumbar | Phone: | | | | | | fusion | [phone] | | | | | | | Fax: | | | | | | | [phone] | | +--------+ + + + + + Reason for Visit + + + | Reason | Comments | + + + | Follow-up | 4 Week PO | + + + Encounter Details +--------+---------+ + + + | Date | Type | Department | Care Team | Description | +--------+---------+ + + + | 01/07/ | Office | [facility] | Ender Mora | Flat back syndrome | | 2015 | Visit | NEUROSURGERY [address] | [address] | (Primary Dx); Lumbar | | | | [address] | [address] | stenosis with | | | | [place], [place] | [place], [place] | neurogenic | | | | [address] | [address] | claudication; S/P | | | | [phone] | | lumbar fusion | +--------+---------+ + [...] 2-3 weeks you can start with physical therrosalia glasgow SPINE BRACE WEANING PROTOCOL (5 WEEKS) Below [...] like sleeping, showering, do not use the Gear6 race for these activities any longer but [...] your back and use good technique when metal pickling equipment operator 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 Electronica lly signed by DOM Lo at 01/07/2015 12:37 PM PDT documented in this encounter Progress Notes Ender Mora PA - 01/07/2015 12:40 PM PDTFormatting of this note might be differen t from the original. DOM Sampson [address] [facility], [address] [place] [address] FAX: NEUROSURGERY SURGICAL FOLLOW-UP CHIEF COMPLAINT: Chief [...] them to make an appointment with her wire frame maker some time after their next follow-up appointment [...] [place] | | | | | | [phone] | | | | | | | [...] priors. FINDINGS: Again seen is stable | [facility] | | hardware for posterior fusion from L2 through L5 with interbody | [facility] | | hardware at these levels. [...] + + | Performing | Address | City/State[facility] | Phone Number | | Organization | | | | + + + + + | [address] | [address] | [place] | [phone] | | [facility] | | [address] | | | - IMAGING | | [...]
--- OUTSIDE RECORDS SUMMARY | ~2019-09-09 | XMS | Encounter Summary ---
Demographics + + + | Address | [address] | | | [place] [address] | + + + | Home Phone | | + + + | Preferred Language | Unknown | + + + | Marital Status | | + + + | Pentecostalism Affiliation | Unknown | + + + | Race | Unknown | + + + | Ethnic Group | Unknown | + + + Author + + + | Author | [facility] | | | and Carlosana | + + + | Organization | [facility] [...] [place], [place] | | | | | [address] | | + + + + + | Mao Rea | ECON | Unknown | | + + + + + | Meredith Rea | ECON | Unknown | | + + + + + | Iqra Medina | ECON | [address] | | | | | [place], [place] | | | | | [address] | | + + + + + | Maldonado Rea | ECON | Unknown | | + + + + + Care Team Providers + +------+ + | Care Hand Bunch Maker Name | Role | Phone | [...] | MED CTR EXTERNAL | MD Hermin[address] | | | | | IMAGING | [place] | | | | | [phone] | [place] [address] | | +--------+ + + + + [...] [place] | | | | | | [phone] | | | | | | | [...]
--- OUTSIDE RECORDS SUMMARY | ~2019-09-09 | XMS | Encounter Summary ---
Demographics + + + | Address | [address] | | | [place] [address] | + + + | Home Phone | | + + + | Preferred Language | Unknown | + + + | Marital Status | | + + + | Yazdanism Affiliation | Unknown | + + + | Race | Unknown | + + + | Ethnic Group | Unknown | + + + Author + + + | Author | [facility] | | | and Carlosana | + + + | Organization | [facility] | [...] [place], [place] | | | | | [address] | | + + + + + | Mao Rea | ECON | Unknown | | + + + + + | Meredith Rea | ECON | Unknown | | + + + + + | Iqra Medina | ECON | [address] | | | | | [place], [place] | | | | | [address] | | + + + + + | Maldonado Rea | ECON | Unknown | | + + + + + Care Team Providers + +------+ + | Care Service Desk Associate Name | Role | Phone | + +------+ + | Sherie Vela PA-C | PCP | | + +------+ + Encounter Details +--------+ + + + + | Date | Type | Department | Care Team | Description | +--------+ + + + + | 12/21/ | Orders Only | [facility] [place] | Luis Carlos Jiménez | Lumbar radiculopathy | | 2018 | | PHYSIATRY [address] | TMD [address] | (Primary Dx) | | | | [place], | [place] | | | | | [place] [address] | [address] | | | | | [phone] | | | +--------+ + + + [...] [place] | | | | | | [address] | | | | | | | [...] + | Performing | Address | City[facility] | Phone Number | | Organization | [...]
--- OUTSIDE RECORDS SUMMARY | ~2019-09-09 | XMS | Encounter Summary ---
Demographics + + + | Address | [address] | | | [place] [address] | + + + | Home Phone | | + + + | Preferred Language | Unknown | + + + | Marital Status | | + + + | Nondenominational Affiliation | Unknown | + + + | Race | Unknown | + + + | Ethnic Group | Unknown | + + + Author + + + | Author | [facility] | | | and Carlosana | + + + | Organization | [facility] | | [...] [place], [place] | | | | | [address] | | + + + + + | Mao Rea | ECON | Unknown | | + + + + + | Meredith Rea | ECON | Unknown | | + + + + + | Iqra Medina | ECON | [address] | | | | | [place], [place] | | | | | [address] | | + + + + + | Maldonado Rea | ECON | Unknown | | + + + + + Care Team Providers + +------+ + | Care Dispatcher Service Or Work Name | Role | Phone | + [...] | | | lordosis | | [address] | | | | | (acquired) | | [place], | | | | | Other | | [place] [address] | | | | | lordosis | | Phone: | | | | | (acquired) | | [phone] | | | | | Procedures | | Fax: | | | | | [place] | | [phone] | | | | | ARTHRODESIS | [...] + + | 12/02/ | Anesthesia | [facility] | Ran Church MD | H/O colon cancer - | | 2014 | Event | MED CTR OR INTRA OP | [address] | 2003 (Primary Dx); | | | | [address] | [place] | Medical marijuana | | | | [place] | [address] | use; Former Tobacco | | | | [address] | | Smoker - quit 1980 | | | | [phone] | | | +--------+ + + + + Anesthesia Record + + + + + | Procedure Name | Responsible | Anesthesia Start | Anesthesia Stop Time | | | Anesthesiologist | Time | | + + + + + | L2-3, L3-4, L4-5 | Ran Church MD | 12/02/14 1340 | 12/02/14 7123 | | LAIF, L2-3, L3-4, | | [...] +----+---+ + + | | 1 | [place] | Upper body blanket | | | 4 | 43-degrees | | | | 0 | | | | | 5 | | | +----+---+ + + | | 1 | [place] | Lower body blanket | | | [...] +----+---+ + + | | 1 | [place] off | | | | 7 | [...] RICHARD | Joseph Titus RN | Ivis Traore [...] [place] | | | | | | [address] | | | | | | | [...]
--- OUTSIDE RECORDS SUMMARY | ~2019-09-09 | XMS | Encounter Summary ---
Demographics + + + | Address | [address] | | | [place] [address] | + + + | Home Phone [...] | [facility] | | | and Carlosana [...] [place], [place] | | | | | [address] | | + + + + + | Mao Rea | ECON | Unknown | | + + + + + | Meredith Rea | ECON | Unknown | | + + + + + | Iqra Medina | ECON | [address] | | | | | [place], [place] | | | | | [address] | | + + + + + | Maldonado Rea | ECON | Unknown | | + + + + + Care Team Providers + +------+ + | Care Director Regulatory Agency Name | Role | Phone | + +------+ + | Brandon Juarez MD | PCP | | + +------+ + Encounter Details +--------+ + + + + | Date | Type | Department | Care Team | Description | +--------+ + + + + | 11/27/ | Hospital | [facility] | Koby George MD | | | 2014 | Encounter | MED CTR XRAY [address] | [address] | | | | | [place] | [place] [address] | | | | | [place] [address] | [phone] | | | | | [phone] | | | +--------+ + + + [...] [place] | | | | | | [address] | | | | | | | | +--------+---------+ + + + documented as of this encounter Procedures + +--------+ + + + | Procedure Name | Priori | Date/Time | Associated Diagnosis | Comments | | | ty | | | | + +--------+ + + + | XR CHEST PA AND | Routin | 11/27/2014 | Sleep apnea, | Results for this | | LATERAL | e | 9:36 AM | obstructive | procedure are in [...] encounter Results XR Chest PA and Lateral (11/27/2014 9:36 AM PST) + + | Specimen | [...] AND/OR ATELECTASIS/SCAR. Dictated and Signed by: Christian | | | MD Emre Electronically signed: 11/27/2014 [...] + | MISCELLANEOUS LAB | | | [phone] | + +---------+ + + | MISCELANIOUS LAB | | | [phone] | + +---------+ + + documented in this encounter Visit Diagnoses Not on filedocumented in this encounter"
--- OUTSIDE RECORDS SUMMARY | ~2019-09-09 | XMS | Encounter Summary ---
Demographics + + + | Address | [address] | | | [place] [address] | + + + | Home Phone | | + + + | Preferred Language | Unknown | + + + | Marital Status | | + + + | Restorationism Affiliation | Unknown | + + + | Race | Unknown | + + + | Ethnic Group | Unknown | + + + Author + + + | Author | [facility] | | | and [place]ana | + + + | Organization | [facility] | | | [...] [place], [place] | | | | | [address] | | + + + + + | Mao Rea | ECON | Unknown | | + + + + + | Meredith Rea | ECON | Unknown | | + + + + + | Iqra Medina | ECON | [address] | | | | | [place], [place] | | | | | [address] | | + + + + + | Maldonado Rea | ECON | Unknown | | + + + + + Care Team Providers + +------+ + | Care Steersman Name | Role | Phone | + +------+ + | Brandon Juarez MD | PCP | | + +------+ + Encounter Details +--------+ + + + + | Date | Type | Department | Care Team | Description | +--------+ + + + + | 11/25/ | Orders Only | [facility] | Ender Mora | S/P lumbar fusion | | 2014 | | NEUROSURGERY [address] | [address] | (Primary Dx) | | | | [address] | [address] | | | | | [place] | [place] | | | | | [address] | [id number] | | | | | [phone] | | | +--------+ + + + [...] [place] | | | | | | [address] | | | | | | | [...] from L2 through L5 with interbody | [facility] | | hardware at these levels. [...] | + + + + + | [address] | [address] | [place] | [phone] | | [facility] | | [address] | | | - IMAGING | | | | + + + + + documented in this encounter Visit Diagnoses + + | Diagnosis | + + | S/P lumbar fusion - Primary Arthrodesis status | + + documented in this encounter"
--- OUTSIDE RECORDS SUMMARY | ~2019-09-09 | XMS | Encounter Summary ---
Demographics + + + | Address | [address] | | | [place] [address] | + + + | Home Phone [...] | Organization | [facility] | | | and [...] [place], [place] | | | | | [address] | | + + + + + | Mao Rea | ECON | Unknown | | + + + + + | Meredith Rea | ECON | Unknown | | + + + + + | Iqra Medina | ECON | [address] | | | | | [place], [place] | | | | | [address] | | + + + + + | Maldonado Rea | ECON | Unknown | | + + + + + Care Team Providers + +------+ + | Care Orchid Transplanter Name | Role | Phone | + [...] | | | | | dysfunction | [address] | [address] | | | | | of both | [place], | [place], | | | | | sides | [place] [address] | [place] [address] | | | | | History of | Phone: | Phone: | | | | | lumbar | [phone] | [phone] | | | | | fusion | Fax: | Fax: | | | | | Procedures | [phone] | [phone] | | | | | HIM 07/27 [...] + | 07/20/ | Office | [facility] | Logan Soto, | Chronic left-sided | | 2017 | Visit | PHYSIATRY [address] | MD [address] | low back pain with | | | | [place], | [place], [place] | left-sided sciatica | | | | [place] [address] | [address] | (Primary Dx); Lumbar | | | | [phone] | | radiculopathy; | | | | [...] encounter Patient Instructions Patient Instructions Claudia Strickland, Marketing Database Analyst - 07/20/2017 10:50 AM PDT Follow-up at [...] of the procedure you must provide a bull driver to take you home. For all [...] has no apparent deficits with short or supervisor intermediates memory. The cranial nerves appear grossly intact. Sensory exam: Decreased sensenation over L4 dermatome bilaterally to light touch. MOTOR EXAM: (5 IS NORMAL) * Indicates pain limited MUSCLE/ MOVEMENT: RIGHT LEFT Deltoids 5 5 Biceps 5 5 Triceps 5 5 Wrist Flexion 5 5 Wrist Extension 5 5 Finger Abduction 5 5 Asparagus Buncher Strength 5 5 Hip Flexion 5 5 [...] considerations for his left thigh pain. Uziel hernandez will have left L2-L3 TFESI with the [...] [place] | | | | | | [address] | | | | | | | [...]
--- OUTSIDE RECORDS SUMMARY | ~2019-09-09 | XMS | Encounter Summary ---
Demographics + + + | Address | [address] | | | [place] [address] | + + + | Home Phone | | + + + | Preferred Language | Unknown | + + + | Marital Status | | + + + | Presybeterian Affiliation | Unknown | + + + | Race | Unknown | + + + | Ethnic Group | Unknown | + + + Author + + + | Author | [facility] | | | and Carlosana | + + + | Organization | [facility] | | | and aCrlosana | + + + | Address | Unknown | + + + | Phone | Unavailable | + + + Support + + + + + | Name | Relationship | Address | Phone | + + + + + | Henny Rea | ECON | [address] | | | | | [place], [place] | | | | | [address] | | + + + + + | Mao Rea | ECON | Unknown | | + + + + + | Meredith Rea | ECON | Unknown | | + + + + + | Iqra Medina | ECON | [address] | | | | | [place], [place] | | | | | [address] | | + + + + + | Maldonado Rea | ECON | Unknown | | + + + + + Care Team Providers + +------+ + | Care Senior Administrative Assistant Name | Role | Phone | [...] | Specialty | Physical | Diagnoses | Vaishnavi, | OP ST | | | Services | Therapy | S/P lumbar | Pedro Wilcox, | DARR[place] | | | Required | | fusion | PA-C [address] | HOSPITAL | | | | | Lumbar | [address] | [address] | | | | | radiculopath | [address] | [address]VE | | | | | y Facet | [place], | [place], [place] | | | | | arthropathy, | [place] [address] | [address] | | | | | lumbar | Phone: | Phone: | | | | | | [phone] | [phone] | | | | | | Fax: | Fax: | | | | | | [phone] | [phone] | +--------+ + + + + + Reason for Visit +---------+ + | Reason | Comments | +---------+ + | Post Op | 4W PO | +---------+ + Encounter Details +--------+---------+ + + + | Date | Type | Department | Care Team | Description | +--------+---------+ + + + | 04/05/ | Office | [facility] | Pedro Riggins | S/P lumbar fusion | | 2017 | Visit | NEUROSURGERY [address] | D, CHELSYC [address] | (Primary Dx); Lumbar | | | | [address] | [address] | radiculopathy; | | | | [place], [place] | [place], [place] | Facet arthropathy, | | | | [address] | [address] | lumbar | | | | [phone] | | | +--------+---------+ + + + [...] + + + | Blood Pressure | 124/77 | 04/05/2017 1:40 PM | | | | | PDT | | + + + + + | Pulse | 71 | 04/05/2017 1:40 PM | | | | | PDT [...] Weight | 90.7 kg (200 lb) | 04/05/2017 1:40 PM | | | | | PDT | | + + + + + | Height | 172.7 cm (5' 8") | 04/05/2017 1:40 PM | | | | | PDT | | + + + + + | Body Mass Index | 30.41 | 04/05/2017 1:40 PM | | | | | PDT [...] of this encounter Patient Instructions Patient Instructions Giuliana Kebede, Terrazzo Tile Setter - 04/05/2017 2:30 PM PDTI have ord ered you a steroid to hopefully help with your left leg pain. I have ordered PT for you to complete Follow up in 2 months with new xrays. You may now slowly increase your lifting up to 15 pounds as tolerated. You may now reach ov erhead but it should only be 1-2 pounds. Please refrain from twisting for the next 8 weeks. Lastly, you will see Dr. George in approximately 2 months where a new x-ray will be taken at th at time. In the meantime, you can also begin to wean out of your brace as instructed below. SPINE BRACE WEANING PROTOCOL (5 WEEKS) Below are instructions for weaning your brace. You can move through the weeks slower if yo u feel the need to do so, but the overall goal is to get you out of the brace slowly over e next several weeks. WEEK 1 If [...] your back and use good technique when oyster picker 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 documented in this encounter Progress Notes Pedro Riggins PA-C - 04/05/2017 2:30 PM PDTFormatting of this note might be differen t from the original. Pedro Riggins PA-C [address] [facility] [place] [address] [place], [place] [id number] FAX: NEUROSURGERY FOLLOW-UP CHIEF COMPLAINT: Chief Complaint Patient presents with Post Op 4W PO HISTORY OF PRESENT ILLNESS: The patient is a 72 y.o. male that had a L5-S1 Transforaminal Lumbar Interbody Fusion, Hardware Revision @ L2-3, L3-4, L4-5 (Posterior Spine Lumbar) for b ack and left leg pain around 4 weeks ago. He returns and overall is doing okay. The patien t complains of outer left hip and leg pain that has progressively gotten worse after surgery . The patient also has swelling of the ankles and knees, he states these are new symptoms. He sits in a wooden back chair at home. The patient has been walking 1.5 miles daily. He i s still taking pain medications at this point. The patient has had no issues with his surgi akila site. CURRENT MEDICATIONS: Current Outpatient Prescriptions Medication [...] 0.05% cream 2 times daily. DULoxetine (CYMBALTA) [address] capsule Take 30 mg by mouth 2 times daily. fish oil 1,000 mg capsule Take 2,000 mg by mouth 2 times daily. gabapentin (NEURONTIN) 800 MG tablet Take 800 mg by mouth 2 times daily. glucosamine-chondroitin [...] mg tablet FOLLOW INSTRUCTIONS, TAKE ORALLY TAT 21 tablet 0 Misc Natural Products (TURMERIC [...] tablet Take 1,000 mg by mouth Daily. Patient takin g 3,000 mg daily tamsulosin (FLOMAX) 0.4 mg CAPS Take 1 [...] use drugs. INTERIM PHYSICAL EXAMINATION: Blood pressure 124/77, pulse 71, height 1.727 m (5' 8"), weight 90.7 kg (200 lb). Body mass index is 30.41 kg/m. GENERAL: Uziel Rea is in no acute distress with unlabored respirations. SPINE: The patient s incisions are healing well without drainage, significant erythema, o r discharge. EXTREMITIES: No lower extremity edema. NEUROLOGICAL EXAMINATION: MENTAL STATUS: The patient is awake, alert, and oriented. He follows simple and complex commands MOTOR EXAM: Motor strength is stable. SENSORY EXAM: The sensory examination is unchanged when compared to the preoperative exam. REVIEW OF SYSTEMS GENERALLY: + fever, no night sweats, no anemia, + fatigue, no recent profound weight cassidy ges. EYES: No eye problems, no use of [...] present illness. In addition, the patient has weakness, tremor/shaking. PSYCHIATRIC: + depression, no sleep disorders, [...] istory of cancer. RHEUMATOLOGIC: No joint arthritis, no rheumatoid arthritis. RADIOGRAPHIC REVIEW: The patient s x-rays show stable instrumentation and alignment and were reviewed with the patient today. There have been no interval changes since the immediate postoperative films . Complete fusion has not yet occurred, but this is normal and would not be expected at thi s time. ASSESSMENT: Encounter Diagnoses Name Primary? S/P lumbar fusion Yes Lumbar radiculopathy Facet arthropathy, lumbar Past Medical History: Diagnosis Date Anxiety Arthritis rheumatoid Cancer (HCC) 2003 colon cancer Degenerative disc disease, lumbar Depression Hard of hearing bilateral hearing aids Hypothyroid Lumbar radiculopathy Rheumatoid arthritis (HCC) Sleep apnea no CPAP Tremor PLAN: Overall, the patient is doing okay. He has had minimal improvement in his preop symptoms. His left hip and lateral leg pain is still bothersome. I increased the patient s activities now allowing 15 pound lifting. The patient and also will begin the process of brace weaning. They should continue regular exercise and strengt hening with the hope that they can avoid additional surgery. I have ordered PT for him to complete. I have ordered a steroid to hopefully help with infl ammation that may be contributing to his pain We discussed that we can provide pain medications for up to 90 days after their surgical da te. We discussed the need to continue tapering pain medication. If they need longer term p ain medication, they should begin working on either pain management or with the primary care provider. I am hoping to see improvement over the coming weeks to months and plan to continue to foll ow this patient. The patient will follow-up in clinic in around 8 weeks for re-evaluation. ELECTRONICALLY SIGNED BY: Pedro Riggins PA-C, 04/05/2017 14:20 Giuliana Kebede assisted me in the sales administration specialist of this note in my presence today. documented in th is encounter Plan of Treatment +--------+---------+ + + + | Date | Type | Specialty | Care Team | Description | +--------+---------+ + + + | 12/07/ | Office | Neurology | Abundio Khanna MD | | | 2020 | Visit | | [address] | | | | | | [place] | | | | | | [address] | | | | | | | | +--------+---------+ + + + + + +--------+ + + | Name | Type | Priori | Associated Diagnoses | Order Schedule | | | | ty | | | + + +--------+ + + | LUMBAR PT | Outpatient | Routin | S/P lumbar fusion | Ordered: 04/05/2017 | | | Referral | e | Lumbar | | | | | | radiculopathy Facet | | | | | | arthropathy, lumbar | | + + +--------+ + + [...]
--- OUTSIDE RECORDS SUMMARY | ~2019-09-09 | XMS | Encounter Summary ---
Demographics + + + | Address | [address] | | | [place] [address] | + + + | Home Phone | | + + + | Preferred Language | Unknown | + + + | Marital Status | | + + + | Tenriism Affiliation | Unknown | + + + | Race | Unknown | + + + | Ethnic Group | Unknown | + + + Author + + + | Author | [facility] | | | and Carlosana | + + + | Organization | [facility] | | [...] [place], [place] | | | | | [address] | | + + + + + | Mao Rea | ECON | Unknown | | + + + + + | Meredith Rea | ECON | Unknown | | + + + + + | Iqra Medina | ECON | [address] | | | | | [place], [place] | | | | | [address] | | + + + + + | Maldonado Rea | ECON | Unknown | | + + + + + Care Team Providers + +------+ + | Care Stave Mill Hand Name | Role | Phone | + [...] | Lumbar | Tino, | [address] | | | | | radiculopath | Luis Carlos Lerner MD | [place], | | | | | y | [address] | [place] | | | | | Procedures | [place] | [address] | | | | | [place] INJECT | [place] | Phone: | | | | | ANES/STEROID | [address] | [phone] | | | | | FORAMEN | Phone: | Fax: | | | | | LUMBAR/SACRA | [phone] | [phone] | | | | | L W IMG | Fax: | | | | | | GUIDE ,1 | [phone] | | | | | | LEVEL [...] + + | 07/24/ | Hospital | [facility] | Eric, | Lumbar radiculopathy | | 2018 | Encounter | MED CTR XRAY [address] | [address] | | | | | [place] | [place], | | | | | [place] [address] | [place] [address] | | | | | [phone] | [phone] | | | | | | | | | | | | Resource AgentChilo | | +--------+ + + + + [...] + + + +---------+ + + | [place]-3 Fatty | Take 2 capsules by | [...] [place] | | | | | | [address] | | | | | | | [...]
--- OUTSIDE RECORDS SUMMARY | ~2019-09-09 | XMS | Encounter Summary ---
Demographics + + + | Address | [address] | | | [place] [address] | + + + | Home Phone | | + + + | Preferred Language | Unknown | + + + | Marital Status | | + + + | Yarsanism Affiliation | Unknown | + + + | Race | Unknown | + + + | Ethnic Group | Unknown | + + + Author + + + | Author | [facility] | | | and Carlosana | + + + | Organization | [facility] [...] [place], [place] | | | | | [address] | | + + + + + | Mao Rea | ECON | Unknown | | + + + + + | Meredith Rea | ECON | Unknown | | + + + + + | Iqra Medina | ECON | [address] | | | | | [place], [place] | | | | | [address] | | + + + + + | Maldonado Rea | ECON | Unknown | | + + + + + Care Team Providers + +------+ + | Care Contract Post Office Clerk Name | Role | Phone | + +------+ + | Brandon Juarez MD | PCP | | + +------+ + Encounter Details +--------+ + + + + | Date | Type | Department | Care Team | Description | +--------+ + + + + | 11/27/ | Preadmit | [facility] | Koby George MD | Sleep apnea, | | 2015 | Visit | MED CTR PREADMIT | [address] | obstructive; | | | | CLINIC [address] | [place] [address] | Essential | | | | [place] | [phone] | hypertension, | | | | [address] | | benign; Fatigue; | | | | [phone] | | Cancer (HCC); | | | [...] [place] | | | | | | [address] | | | | | | | [...] + | CBC WITH | Routin | 11/27/2014 | Sleep apnea, | Results for this | | DIFFERENTIAL | e | 9:13 AM | obstructive | procedure are in [...] + | BASIC METABOLIC | Routin | 11/27/2014 | Sleep apnea, | Results for this | | PANEL | e | 9:13 AM | obstructive | procedure are in [...] AND/OR ATELECTASIS/SCAR. Dictated and Signed by: Christian Andrea MD Electronically signed: 11/27/2014 10:18 AM | | [...] + | MISCELLANEOUS LAB | | | [phone] | + +---------+ + + | MISCELANIOUS LAB | | | [phone] | + +---------+ + + CBC with [...] | | | Eosinophils | | | [facility] | | [...] | Neutrophils | | K/uL | [facility] | | | | | | MEDICAL | | | | | | CENTER - | | | | | | LABORATORY | | + + + + + + | Absolute | 1.90 | 0.60 - 3.20 | [facility] | | | Lymphocytes | | K/uL | [facility] | [...] | Basophils | | K/uL | [facility] | [...] + | [facility] | [address] | [place] | [phone] | | [facility] | | [address] | | | - LABORATORY | | | | + + + + + | [facility] | [address] | [place] | | | [facility] | | [address] | | | - LABORATORY | | [...] | | | | | mg/dL | [facility] | | | | | | MEDICAL | | | | | | CENTER - | | | | | | LABORATORY | | + + + + + + | eGFR if not | >60Comment: GLOMERULAR | >=60 | [facility] | | | | FILTRATION | mL/min/1.73m2 | [facility] | | | TRISTANIAN | RATE,ESTIMATED | | MEDICAL | | | | mL/min/1.17o8Vnab than | | CENTER - | | [...] | | | | | mg/dL | [facility] | | | | | | MEDICAL | | | | | | CENTER - | | | | | | LABORATORY | | + + + + + + | BUN/Creatin | 18.7 | | [facility] | | | ine Ratio | | | [facility] | | | | [...] [address] | [place] | [phone] | | [facility] | | [address] | | | - LABORATORY | | | | + + + + + | [facility] | [address] | [place] | | | [facility] | | [address] | | | - LABORATORY | | [...]
--- OUTSIDE RECORDS SUMMARY | ~2019-09-09 | XMS | Encounter Summary ---
Demographics + + + | Address | [address] | | | [place] [address] | + + + | Home Phone [...] | Organization | [facility] | | [...] [place], [place] | | | | | [address] | | + + + + + | Mao Rea | ECON | Unknown | | + + + + + | Meredith Rea | ECON | Unknown | | + + + + + | Iqra Medina | ECON | [address] | | | | | [place], [place] | | | | | [address] | | + + + + + | Maldonado Rea | ECON | Unknown | | + + + + + Care Team Providers + +------+ + | Care Machine Leather Trimmer Name | Role | Phone | + +------+ + | Sherie Vela PA-C | PCP | | + +------+ + Encounter Details +--------+ + + + + | Date | Type | Department | Care Team | Description | +--------+ + + + + | 05/29/ | Orders Only | [facility] | Provider, | | | 2018 | | SYSTEM GENERIC OP | MD Hermin[address] | | | | | CONVERSION BEKAH [address] | [address] | | | | | [address] | [place] [address] | | | | | [address] | | | | | | [phone] | | | +--------+ + + + [...] [place] | | | | | | [id number] | | | | | | | | +--------+---------+ + + + documented as of this encounter Visit Diagnoses Not on filedocumented in this encounter"
--- OUTSIDE RECORDS SUMMARY | ~2019-09-09 | XMS | Encounter Summary ---
Demographics + + + | Address | [address] | | | [place] [address] | + + + | Home Phone | | + + + | Preferred Language | Unknown | + + + | Marital Status | | + + + | Hindu Affiliation | Unknown | + + + | Race | Unknown | + + + | Ethnic Group | Unknown | + + + Author + + + | Author | [facility] | | | and Carlosana | + + + | Organization | [facility] | | | and Carlosana [...] [place], [place] | | | | | [address] | | + + + + + | Mao Rea | ECON | Unknown | | + + + + + | Meredith Rea | ECON | Unknown | | + + + + + | Iqra Medina | ECON | [address] | | | | | [place], [place] | | | | | [address] | | + + + + + | Maldonado Rea | ECON | Unknown | | + + + + + Care Team Providers + +------+ + | Care New Account Interviewer Name | Role | Phone | + +------+ + | Brandon Juarze MD | PCP | | + +------+ [...] | Logan Rios MD | [address] | | | | | radiculopath | [address] | [place], | | | | | y Left leg | [address] | [place] | | | | | pain Left | [place], | [address] | | | | | leg weakness | [place] [address] | Phone: | | | | | Numbness | Phone: | [phone] | | | | | of left foot | [phone] | Fax: | | | | | History of | Fax: | [phone] | | | | | lumbar | [phone] | | | | | | fusion [...] | injury | MD Sohail | [address] | | | | n | | [address] | [place], | | | | | | [place] | [place] [address] | | | | | | [place], [place] | Phone: | | | | | | [address] | [phone] | | | | | | Phone: | Fax: | | | | | | [phone] | [phone] | | | | | | Fax: | | | | | | | [phone] | | +--------+--------+ + + + + Encounter Details +--------+---------+ + + + | Date | Type | Department | Care Team | Description | +--------+---------+ + + + | 06/17/ | Office | [facility] [place] | Logan Soto, | Lumbar radiculopathy | | 2016 | Visit | PHYSIATRY [address] | [address] | (Primary Dx); Left | | | | [address] [place], | [place], [place] | leg pain; Left leg | | | | [place] [address] | [address] | weakness; Numbness | | | | [phone] | | of left foot; | | [...] Instructions Patient Instructions Logan Soto MD - 06/17/2016 9:22 AM PDTLaboratory tests [...] encounter Progress Notes Logan Soto MD - 06/17/2016 9:43 AM PDT [facility] PHYSIATRY [address] [facility] [place] [address] OFFICE NOTE LOGAN SOTO JR, MD Patient: TRAYRACHEL Admitting: MR #: [id number] LOC: PT TYPE: Adm Date: 06/17/2016 : [...] please do not hesitate to call. LOGAN SOTO JR, MD Dictated by LOGAN SOTO JR, MD 06/17/2016 09:43:44 Transcribed on 06/18/2016 10:20:46 by wendy russo# [id number] Confirmation #: [id number] cc: BRANDON JUAREZ MD Logan Soto MD - 06/17/2016 9:23 AM PDTThis office note has been dictated. Report Confirmation# [id number] signed by Logan Soto MD at 06/17/2016 9:43 AM PDTdocumented in [...] pattern. COMPARISON: MRI lumbar spine 06/26/2014 | [facility] | | and lumbar spine x-ray [...] ST. | [address] | [place] | [phone] | | [facility] | | [address] | | | - IMAGING | | [...] mL/min/1.73m2 | [facility] | | | [place] | RATE,ESTIMATED | | MEDICAL | | | | mL/min/1.60a5Vkxz than | | CENTER - | | [...] + | BUN/Creatin | 12.9 | | [facility] | | | ine Ratio | | [...] [address] | [place] | [phone] | | [facility] | | [address] | | | - LABORATORY | | [...]
--- OUTSIDE RECORDS SUMMARY | ~2019-09-09 | XMS | Encounter Summary ---
Demographics + + + | Address | [address] | | | [place] [address] | + + + | Home Phone | | + + + | Preferred Language | Unknown | + + + | Marital Status | | + + + | Orthodoxy Affiliation | Unknown | + + + | Race | Unknown | + + + | Ethnic Group | Unknown | + + + Author + + + | Author | [facility] | | | and aCrlosana | + + + | Organization | [facility] | | | and Cralosana | + + + | Address | Unknown | + + + | Phone | Unavailable | + + + Support + + + + + | Name | Relationship | Address | Phone | + + + + + | Henny Rea | ECON | [address] | | | | | [place], [place] | | | | | [address] | | + + + + + | Mao Rea | ECON | Unknown | | + + + + + | Meredith Rea | ECON | Unknown | | + + + + + | Iqra Medina | ECON | [address] | | | | | [place], [place] | | | | | [address] | | + + + + + | Maldonado Rea | ECON | Unknown | | + + + + + Care Team Providers + +------+ + | Care Telesales Representative Name | Role | Phone | [...] | PHYSIATRY [address] | [address] | low back pain with | | | | [place], | [place], [place] | left-sided sciatica | | | | [place] [address] | [address] | (Primary Dx); Lumbar | | | | [phone] | | radiculopathy; | | | | [...] Instructions Patient Instructions Petra Prater RN - 12/06/2017 1:00 PM PSTPlease continue daily ex ercises as outlined by Physical Therapy. Please attend the injection appointment with Luis Carlos Jiménez MD. If his office has not co ntacted you within one week, to schedule the injection, please contact my clinic. Your inje ction will be performed at [facility]. Please take note [...] of the procedure you must provide a ems driver to take you home. For all procedur es it is recommended that someone else drive you home. documented in this encounter Progress Notes Logan Soto MD - 12/06/2017 1:00 PM PSTFormatting of this note might be different fro m the original. Logan Soto MD [address] [place] [address], [address] [place], [place] [address] FAX: PHYSICAL MEDICINE AND REHABILITATION H&P CHIEF [...] to discuss SI treatment with Dr. Jovi joiner, and that he continue to participate in [...] has no apparent deficits with short or long term care phlebotomist memory. The cranial nerves appear grossly intact. [...] | 2020 | Visit | | [address] [facility] [address] | | | | | | [place] | | | | | | [address] | | | | | | | [...]
--- OUTSIDE RECORDS SUMMARY | ~2019-09-09 | XMS | Encounter Summary ---
Demographics + + + | Address | [address] | | | [place] [address] | + + + | Home Phone [...] + | Author | [facility] | | | and Carlosana | + + + | Organization | [facility] | [...] [place], [place] | | | | | [address] | | + + + + + | Mao Rea | ECON | Unknown | | + + + + + | Meredith Rea | ECON | Unknown | | + + + + + | Iqra Medina | ECON | [address] | | | | | [place], [place] | | | | | [address] | | + + + + + | Maldonado Rea | ECON | Unknown | | + + + + + Care Team Providers + +------+ + | Care Boiler Mechanic Name | Role | Phone | + +------+ + PCP | Unavailable | + +------+ + Encounter Details +--------+ + + + + | Date | Type | Department | Care Team | Description | +--------+ + + + + | 06/15/ | Hospital | [facility] | Hadley Weiss | | | 2010 | Encounter | MED CTR GENERIC OP | MD Elie[address] | | | | | CONV DEPT [address] | [address] [place] | | | | | [place], | [place], [place] [address] | | | | | [place] [address] | [phone] | | | | | [phone] | | | +--------+ + + + [...] [place] | | | | | | [address] | | | | | | | | +--------+---------+ + + + documented as of this encounter Visit Diagnoses Not on filedocumented in this encounter"
--- OUTSIDE RECORDS SUMMARY | ~2019-09-09 | XMS | Encounter Summary ---
Demographics + + + | Address | [address] | | | [place] [address] | + + + | Home Phone [...] | Organization | [facility] | [...] [place], [place] | | | | | [address] | | + + + + + | Mao Rea | ECON | Unknown | | + + + + + | Meredith Rea | ECON | Unknown | | + + + + + | Iqra Medina | ECON | [address] | | | | | [place], [place] | | | | | [address] | | + + + + + | Maldonado Rea | ECON | Unknown | | + + + + + Care Team Providers + +------+ + | Care Stunt Woman Name | Role | Phone | + +------+ + | Sherie Vela PA-C | PCP | | + +------+ + Encounter Details +--------+ + + + + | Date | Type | Department | Care Team | Description | +--------+ + + + + | 05/24/ | Orders Only | [facility] [place] | Ender Mora | S/P lumbar fusion | | 2017 | | NEUROSURGERY [address] | [address] | (Primary Dx) | | | | [address] | [address] | | | | | [place], [place] | [place], [place] | | | | | [address] | [address] | | | | | [phone] | | | +--------+ + + + [...] [place] | | | | | | [address] | | | | | | | | +--------+---------+ + + + documented as of this encounter Visit Diagnoses + + | Diagnosis | + + | S/P lumbar fusion - Primary Arthrodesis status | + + documented in this encounter"
--- OUTSIDE RECORDS SUMMARY | ~2019-09-09 | XMS | Encounter Summary ---
Demographics + + + | Address | [address] | | | [place] [address] | + + + | Home Phone | | + + + | Preferred Language | Unknown | + + + | Marital Status | | + + + | Tenriism Affiliation | Unknown | + + + | Race | Unknown | + + + | Ethnic Group | Unknown | + + + Author + + + | Author | [facility] | | | and [place]ana | + + + | Organization | [facility] | | | and [place]ana | + + + | Address | Unknown | + + + | Phone | Unavailable | + + + Support + + + + + | Name | Relationship | Address | Phone | + + + + + | Henny Rea | ECON | [address] | | | | | [place], [place] | | | | | [address] | | + + + + + | Mao Rea | ECON | Unknown | | + + + + + | Meredith Rea | ECON | Unknown | | + + + + + | Iqra Medina | ECON | [address] | | | | | [place], [place] | | | | | [address] | | + + + + + | Maldonado Rea | ECON | Unknown | | + + + + + Care Team Providers + +------+ + | Care Colored Liquid Plastic Applier Name | Role | Phone | + +------+ + | Sherie Vela PA-C | PCP | | + +------+ + Reason for Visit + + + | Reason | Comments | + + + | Imaging Only | MRI scheduled 01/11 | + + + Encounter Details +--------+ + + + + | Date | Type | Department | Care Team | Description | +--------+ + + + + | 01/04/ | Telephone | [facility] [place] | Koby George MD | Imaging Only (MRI | | 2019 | | NEUROSURGERY [address] | [address] | scheduled 01/11) | | | | [address] | [place] [address] | | | | | [place], [place] | [phone] | | | | | [address] | | | | | | [phone] | | | +--------+ + + + [...] [place] | | | | | | [address] | | | | | | | | +--------+---------+ + + + documented as of this encounter Visit Diagnoses Not on filedocumented in this encounter"
--- OUTSIDE RECORDS SUMMARY | ~2019-09-09 | XMS | Encounter Summary ---
Demographics + + + | Address | [address] | | | [place] [address] | + + + | Home Phone [...] | Organization | [facility] | | | and [...] [place], [place] | | | | | [address] | | + + + + + | Mao Rea | ECON | Unknown | | + + + + + | Meredith Rea | ECON | Unknown | | + + + + + | Iqra Medina | ECON | [address] | | | | | [place], [place] | | | | | [address] | | + + + + + | Maldonado Rea | ECON | Unknown | | + + + + + Care Team Providers + +------+ + | Care Firesetter Name | Role | Phone | + +------+ + | Brandon Juarez MD | PCP | | + +------+ + Reason for Visit + + + | Reason | Comments | + + + | Follow-up | CT and Xray Follow up | + + + Evaluate & Treat (Routine) +--------+ + + + + + | Status | Reason | Specialty | Diagnoses / | Referred By | Referred To | | | | | Procedures | Contact | Contact | +--------+ + + + + + | Closed | Specialty | Neurosurgery | Diagnoses | [place], | Koby George | | | Services | | Chronic | Logan Rios MD | MD Blanca [address] | | | Required | | left-sided | [address] | | | | | low back | [address] | [place], [place] | | | | | pain with | [place], | [address] | | | | | left-sided | [place] [address] | Phone: | | | | | sciatica | Phone: | [phone] | | | | | Lumbar | [phone] | Fax: | | | | | radiculopath | Fax: | [phone] | | | | | y Lumbar | [phone] | | | | | | spinal | | | | | | | stenosis | | | | | | | History of | | | | | | | lumbar | | | | | | | fusion | | | | | | | Failed back | | | | | | | surgical | | | | | | | syndrome | | | +--------+ + + + + + Encounter Details +--------+---------+ + + + | Date | Type | Department | Care Team | Description | +--------+---------+ + + + | 11/30/ | Office | [facility] [place] | Ender Mora | Pseudoarthrosis of | | 2017 | Visit | NEUROSURGERY [address] | [address] | lumbar spine | | | | [address] | [address] | (Primary Dx); | | | | [place], [place] | [place], [place] | Synovial cyst of | | | | [address] | [address] | lumbar facet joint; | | | | [phone] | | S/P lumbar fusion | +--------+---------+ + + + [...] + | Blood Pressure | 130/80 | 11/30/2016 3:03 PM | | | | | PST | | + + + + + | Pulse | 63 | 11/30/2016 3:03 PM | | | | | PST [...] + + + + | Weight | 90.3 kg (199 lb) | 11/30/2016 3:03 PM | | | | | PST | | + + + + + | Height | 172.7 cm (5' 8") | 11/30/2016 3:03 PM | | | | | PST | | + + + + + | Body Mass Index | 30.26 | 11/30/2016 3:03 PM | | | | | PST [...] Instructions Patient Instructions Ender Mora PA-C - 11/30/2016 4:15 PM PSTToday we discussed moving on to work on a lumbar fusion at L5-S1. In addition we discussed hardware revision and working to improve fusion at your previously fused levels which have not fused correctly . We also discussed using BMP. We decided that you would take some time to think about you r options and let us know if you would like to proceed. documented in this encounter Progress Notes Ender Mora PA-C - 11/30/2016 4:16 PM PSTFormatting of this note might be differ ent from the original. Ender Mora PA-C [address] [facility], [address] [place], [place] [address] FAX: NEUROSURGERY FOLLOW-UP CHIEF COMPLAINT: Chief Complaint Patient presents with Follow-up CT and Xray Follow up HISTORY OF PRESENT ILLNESS: The patient is [...] has continued with surveillance for his problem The patient complains of increased problems with left leg pain. He has pain radiating nohelia n his posterior thigh and into his winters and lateral foot on the left side. No right-sided s ymptoms. He has some chronic numbness in his lateral left leg. He has bilateral foot numbn ess which is also been ongoing. He has followed with physiatry and recently had left sided epidural steroid injection. Good diagnostic improvement for about 4 days but no therapeutic improvement of his symptoms. He is here to discuss his options. He would like to consider further surgery if that would be reasonable. He presents today with his . He has a hi story of rheumatoid arthritis. He has an appointment with pain medicine provider. There is been some discussion regarding possible spinal cord stimulator.. CURRENT MEDICATIONS: Current Outpatient Prescriptions Medication Sig Dispense Refill Ascorbic Acid (VITAMIN C WITH TOM HIPS) 500 MG tablet Take 500 mg by mouth Daily. Calcium Carbonate-Vit D-Min (CALCIUM 1200 PO) CHEW: Daily Cholecalciferol (VITAMIN D-3) 2000 units CAPS Take 2,000 Units by mouth 2 times daily. diclofenac-misoprostol (ARTHROTEC 75) 75-0.2 mg per tablet [...] every morning (before breakfast). lidocaine-prilocaine (EMLA) cream medical marijuana (CANNABIS) inhalation Inhale 1-5 puffs into the lungs Twice daily as needed. METHOTREXATE SODIUM IJ SOLN: As directed METHYLCOBALAMIN PO Take 1,000 mcg by mouth Daily. Misc Natural Products (TURMERIC CURCUMIN) CAPS Take by mouth. Multiple Vitamins-Minerals (A THRU Z ADVANCED) TABS Omeprazole Magnesium ([facility] OMEPRAZOLE) 20.6 (20 BASE) MG CPDR Daily oxyCODONE 10 MG TABS Take 5-10 mg by mouth every 4 hours as needed. propranolol (INDERAL) 20 MG tablet Take 20 mg by mouth 3 times daily. tofacitinib (XELJANZ XR) 11 mg tablet Take 11 mg by mouth Daily. ziprasidone (GEODON) 80 MG capsule No current [...] drink alcohol. INTERIM PHYSICAL EXAMINATION: Blood pressure 130/80, pulse 63, height 1.727 m (5' 8"), weight 90.266 kg (199 lb). Body ma ss index is 30.26 kg/(m^2). GENERAL: Uziel Rea is in no [...] Name Primary? 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 I reviewed the MRI and CT scan and x-rays with Dr. jude bocanegra. Today I discussed with the patient L5-S1 T lift with hardware revision and additional p osterior lateral fusion. also discussed with the patient today the use of BMP despite his h istory of colon cancer. Discussed with the patient the theoretical possibility of recurrenc e of cancer using this medication. He also discussed the discontinuing of his immunosuppres harish and then after surgery. Perhaps we will need to have him stay off of his immunosuppres harish longer after surgery as well to rigger helper in the fusion process. I've encouraged the patient and his to think about all of this for the next 2 days and to call our office. He is also discussing this spinal cord stimulator trial with his pain medicine provider as a backup option if he does not proceed with surgery. ELECTRONICALLY SIGNED BY: Ender Mora PA-C, 11/30/2016 16:16 documented in this encounter Plan of Treatment [...] [place] | | | | | | [address] | | | | | | | [...]
--- OUTSIDE RECORDS SUMMARY | ~2019-09-09 | XMS | Encounter Summary ---
Demographics + + + | Address | [address] | | | [place] [address] | + + + | Home Phone | | + + + | Preferred Language | Unknown | + + + | Marital Status | | + + + | Worship Affiliation | Unknown | + + + | Race | Unknown | + + + | Ethnic Group | Unknown | + + + Author + + + | Author | [facility] | | | and [place] | + + + | Organization | [facility] | | [...] [place], [place] | | | | | [address] | | + + + + + | Mao Rea | ECON | Unknown | | + + + + + | Meredith Rea | ECON | Unknown | | + + + + + | Iqra Medina | ECON | [address] | | | | | [place], [place] | | | | | [address] | | + + + + + | Maldonado Rea | ECON | Unknown | | + + + + + Care Team Providers + +------+ + | Care Mud Trucker Name | Role | Phone | + +------+ + | Brandon Juarez MD | PCP | | + +------+ + Encounter Details +--------+ + + + + | Date | Type | Department | Care Team | Description | +--------+ + + + + | 03/24/ | Orders Only | [facility] | Ender Mora | S/P lumbar fusion | | 2017 | | NEUROSURGERY [address] | [address] | (Primary Dx) | | | | [address] | [address] | | | | | [place] | [place] | | | | | [address] | [address] | | | | | [phone] | | | +--------+ + + + [...] [place] | | | | | | [address] | | | | | | | [...] + + | Performing | Address | City/State/[facility] | Phone Number | | Organization | | | | + + + + + | [address] | [address] | [place] | [phone] | | [facility] | | [address] | | | - IMAGING | | | | + + + + + documented in this encounter Visit Diagnoses + + | Diagnosis | + + | S/P lumbar fusion - Primary Arthrodesis status | + + documented in this encounter"
--- OUTSIDE RECORDS SUMMARY | ~2019-09-09 | XMS | Encounter Summary ---
Demographics + + + | Address | [address] | | | [place] [address] | + + + | Home Phone | | + + + | Preferred Language | Unknown | + + + | Marital Status | | + + + | Church Affiliation | Unknown | + + + | Race | Unknown | + + + | Ethnic Group | Unknown | + + + Author + + + | Author | [facility] | | | and [place] | + + + | Organization | [facility] | | [...] [place], [place] | | | | | [address] | | + + + + + | Mao Rea | ECON | Unknown | | + + + + + | Meredith Rea | ECON | Unknown | | + + + + + | Iqra Medina | ECON | [address] | | | | | [place], [place] | | | | | [address] | | + + + + + | Maldonado Rea | ECON | Unknown | | + + + + + Care Team Providers + +------+ + | Care Cut Roll Machine Operator Name | Role | Phone [...] | | | | | Lumbar | [place], | [address] | | | | | radiculopath | Luis Carlos Lerner MD | [place], | | | | | y | [address] | [place] | | | | | Procedures | [place] | [address] | | | | | [place] INJECT | [place] | Phone: | | | | | ANES/STEROID | [address] | [phone] | | | | | FORAMEN | Phone: | Fax: | | | | | LUMBAR/SACRA | [phone] | [phone] | | | | | L W IMG | Fax: | | | | | | GUIDE ,1 | [phone] | | | | | | LEVEL UT | | | | | | | [...] + + | 07/12/ | Hospital | [facility] | Luis Carlos Jiménez | Lumbar radiculopathy | | 2016 | Encounter | MED CTR XRAY [address] | T, [address] | | | | | [place] | [place] | | | | | [place] [address] | 200162 | | | | | [phone] | | | | | | | [employer], [facility] | | +--------+ + + + [...] [place] | | | | | | [address] | | | | | | | [...] | Lumbar radiculopathy ICD-10 Code M54.16 Uziel Rea | [facility] | | presents to the fluoroscopy suite for a fluoroscopically-guided [facility] | | L5-S1 transforaminal epidural steroid injection [...] + + | Performing | Address | City/State/[facility] | Phone Number | | Organization | | | | + + + + + | [address] | [address] | [place] | [phone] | | [facility] | | [address] | | | - IMAGING | | [...] | | | | First dose on Tue07/12/16 at | | | | | | [...] | | | | | INTRATHECAL, ONCE, Tue07/12/16 at | | AM PDT | | [...]
--- OUTSIDE RECORDS SUMMARY | ~2019-09-09 | XMS | Encounter Summary ---
Demographics + + + | Address | [address] | | | [place] [address] | + + + | Home Phone [...] | Author | [facility] | | | and [place] | + + + | Organization | [facility] | | | [...] [place], [place] | | | | | [address] | | + + + + + | Mao Rea | ECON | Unknown | | + + + + + | Meredith Rea | ECON | Unknown | | + + + + + | Iqra Medina | ECON | [address] | | | | | [place], [place] | | | | | [address] | | + + + + + | Maldonado Rea | ECON | Unknown | | + + + + + Care Team Providers + +------+ + | Care Mobile Product Manager Name | Role | Phone | + +------+ + PCP | Unavailable | + +------+ + Encounter Details +--------+ + + + + | Date | Type | Department | Care Team | Description | +--------+ + + + + | 06/13/ | Hospital | [facility] | | | | 1994 | Encounter | MED CTR XRAY [address] | | | | | | [address] | | | | | | [place] [address] | | | | | | [phone] | | | +--------+ + + + [...] [place] | | | | | | [address] | | | | | | | | +--------+---------+ + + + documented as of this encounter Visit Diagnoses Not on filedocumented in this encounter"
--- OUTSIDE RECORDS SUMMARY | ~2019-09-09 | XMS | Encounter Summary ---
Demographics + + + | Address | [address] | | | [place] [address] | + + + | Home Phone [...] Organization | [facility] | | | [...] [place], [place] | | | | | [address] | | + + + + + | Mao Rea | ECON | Unknown | | + + + + + | Meredith Rea | ECON | Unknown | | + + + + + | Iqra Medina | ECON | [address] | | | | | [place], [place] | | | | | [address] | | + + + + + | Maldonado Rea | ECON | Unknown | | + + + + + Care Team Providers + +------+ + | Care Sewing Machine Tester Name | Role | Phone | [...] + + | 08/09/ | Office | [facility] | Koby George MD | S/P lumbar fusion | | 2017 | Visit | NEUROSURGERY [address] | [address] | (Primary Dx) | | | | [address] | [place] [address] | | | | | [place] | [phone] | | | | | [address] | | | | | | [phone] | | | +--------+---------+ + + + [...] from t tu original. Koby George MD [address] [place] [address], [address] [place] [address] FAX: NEUROSURGERY FOLLOW-UP CHIEF COMPLAINT: Chief Complaint [...] deliberately increas e his activities with walking. correction pain medication should be continued and tapered [...] [place] | | | | | | [address] | | | | | | | [...]
--- OUTSIDE RECORDS SUMMARY | ~2019-09-09 | XMS | Encounter Summary ---
Demographics + + + | Address | [address] | | | [place] [address] | + + + | Home Phone | | + + + | Preferred Language | Unknown | + + + | Marital Status | | + + + | Buddhist Affiliation | Unknown | + + + | Race | Unknown | + + + | Ethnic Group | Unknown | + + + Author + + + | Author | [facility] | | | and [place]ana | + + + | Organization | [facility] | [...] [place], [place] | | | | | [address] | | + + + + + | Mao Rea | ECON | Unknown | | + + + + + | Meredith Rea | ECON | Unknown | | + + + + + | Iqra Medina | ECON | [address] | | | | | [place], [place] | | | | | [address] | | + + + + + | Maldonado Rea | ECON | Unknown | | + + + + + Care Team Providers + +------+ + | Care Stitch Separator Name | Role | Phone | + +------+ + | Brandon Jaurez MD | PCP | | + +------+ + Reason for Visit + + + | Reason | Comments | + + + | Medication Refill | | + + + Encounter Details +--------+--------+ + + + | Date | Type | Department | Care Team | Description | +--------+--------+ + + + | 02/03/ | Refill | [facility] | Koby George MD | Medication Refill | | 2014 | | NEUROSUR[address]ERY [address] | [address] | | | | | [address] | [place] [address] | | | | | [place] | [phone] | | | | | [address] | | | | | | [phone] | | | +--------+--------+ + + + [...] [place] | | | | | | [address] | | | | | | | | +--------+---------+ + + + documented as of this encounter Visit Diagnoses + + | Diagnosis | + + | S/P lumbar fusion - Primary Arthrodesis status | + + documented in this encounter"
--- OUTSIDE RECORDS SUMMARY | ~2019-09-09 | XMS | Encounter Summary ---
Demographics + + + | Address | [address] | | | [place] [address] | + + + | Home Phone | | + + + | Preferred Language | Unknown | + + + | Marital Status | | + + + | Protestant Affiliation | Unknown | + + + | Race | Unknown | + + + | Ethnic Group | Unknown | + + + Author + + + | Author | [facility] | | | and [place] | + + + | Organization | [facility] | | | and [place] | [...] [place], [place] | | | | | [address] | | + + + + + | Mao Rea | ECON | Unknown | | + + + + + | Meredith Rea | ECON | Unknown | | + + + + + | Iqra Medina | ECON | [address] | | | | | [place], [place] | | | | | [address] | | + + + + + | Maldonado Rea | ECON | Unknown | | + + + + + Care Team Providers + +------+ + | Care Soap Mixer Name | Role | Phone | + [...] Description | +--------+--------+ + + + | 02/20/ | Refill | [facility] [place] | Koby George MD | Medication Refill | | 2014 | | NEUROSUR[address]ERY [address] | [address] | | | | | [address] | [place] [address] | | | | | [place] | [phone] | | | | | [address] | | | | | | [phone] | | | +--------+--------+ + + + [...] [place] | | | | | | [address] | | | | | | | | +--------+---------+ + + + documented as of this encounter Visit Diagnoses + + | Diagnosis | + + | S/P lumbar fusion Arthrodesis status | + + documented in this encounter"
--- OUTSIDE RECORDS SUMMARY | ~2019-09-09 | XMS | Encounter Summary ---
Demographics + + + | Address | [address] | | | [place] [address] | + + + | Home Phone [...] | + + + | Organization | [facility] | [...] [place], [place] | | | | | [address] | | + + + + + | Mao Rea | ECON | Unknown | | + + + + + | Meredith Rea | ECON | Unknown | | + + + + + | Iqra Medina | ECON | [address] | | | | | [place], [place] | | | | | [address] | | + + + + + | Maldonado Rea | ECON | Unknown | | + + + + + Care Team Providers + +------+ + | Care Repairing Calibrator Name | Role | Phone | + +------+ + | Sherie Vela PA-C | PCP | | + +------+ + Encounter Details +--------+ + + + + | Date | Type | Department | Care Team | Description | +--------+ + + + + | 01/04/ | Imaging | [facility] | Provider, | | | 2019 | Exam | MED CTR EXTERNAL | MD [address]in[address] | | | | | IMAGING | [address] | | | | | [phone] | [place] [address] | | +--------+ + + + + [...] [place] | | | | | | [id number] | | | | | | | | +--------+---------+ + + + documented as of this encounter Procedures + +--------+ + + + | Procedure Name | Priori | Date/Time | Associated Diagnosis | Comments | | | ty | | | | + +--------+ + + + | XR LUMBAR SPINE 2 [place] | Routin | 01/01/2019 | | Results for this | | 3 VW | e | 1:10 PM | | procedure are in the | | | | PST | | results section. | + +--------+ + + + documented in this encounter Results XR Lumbar Spine 2 or 3 Vw (01/01/2019 1:10 PM PST) + + | Specimen | [...]
--- OUTSIDE RECORDS SUMMARY | ~2019-09-09 | XMS | Encounter Summary ---
Demographics + + + | Address | [address] | | | [place] [address] | + + + | Home Phone | | + + + | Preferred Language | Unknown | + + + | Marital Status | | + + + | Roman Catholic Affiliation | Unknown | + + + | Race | Unknown | + + + | Ethnic Group | Unknown | + + + Author + + + | Author | [facility] | | | and [place] | + + + | Organization | [facility] | | | and [...] [place], [place] | | | | | [address] | | + + + + + | Mao Rea | ECON | Unknown | | + + + + + | Meredith Rea | ECON | Unknown | | + + + + + | Iqra Medina | ECON | [address] | | | | | [place], [place] | | | | | [address] | | + + + + + | Maldonado Rea | ECON | Unknown | | + + + + + Care Team Providers + +------+ + | Care Manager Image Name | Role | Phone | + +------+ + | Brandon Juarez MD | PCP | | + +------+ + Encounter Details +--------+ + + + + | Date | Type | Department | Care Team | Description | +--------+ + + + + | 01/07/ | [facility] | [facility] | Ender Mora | S/P lumbar fusion | | 2014 | Encounter | MED CTR XRAY [address] | [address] | | | | | [place] | [address] | | | | | [place] [address] | [place], [place] | | | | | [phone] | [address] | | | | | [...] [place] | | | | | | [address] | | | | | | | [...] L2 through L5 with interbody | [facility] [place] | | hardware at these levels. Stable [...] + + | Performing | Address | City/State/[facility] | Phone Number | | Organization | | | | + + + + + | [address] | [address] | [place] | [phone] | | [facility] | | [address] | | | - IMAGING | | | | + + + + + documented in this encounter Visit Diagnoses + + | Diagnosis | + + | S/P lumbar fusion Arthrodesis status | + + documented in this encounter"
--- OUTSIDE RECORDS SUMMARY | ~2019-09-09 | XMS | Encounter Summary ---
Demographics + + + | Address | [address] | | | [place] [address] | + + + | Home Phone | | + + + | Preferred Language | Unknown | + + + | Marital Status | | + + + | Sikh Affiliation | Unknown | + + + | Race | Unknown | + + + | Ethnic Group | Unknown | + + + Author + + + | Author | [facility] | | | and [place] | + + + | Organization | [facility] | | [...] [place], [place] | | | | | [address] | | + + + + + | Mao Rea | ECON | Unknown | | + + + + + | Meredith Rea | ECON | Unknown | | + + + + + | Iqra Medina | ECON | [address] | | | | | [place], [place] | | | | | [address] | | + + + + + | Maldonado Rea | ECON | Unknown | | + + + + + Care Team Providers + +------+ + | Care Associate Professor Of Management Name | Role | Phone | [...] | (Primary Dx) | | | | [place], | [address] [place] [address] | | | | | [place] [address] | [address] | | | | | [phone] | | | +--------+ + + + [...] [place] | | | | | | [address] | | | | | | | [...] + + | Performing | Address | City/State[facility] | Phone Number | | [...]
--- OUTSIDE RECORDS SUMMARY | ~2019-09-09 | XMS | Encounter Summary ---
Demographics + + + | Address | [address] | | | [place] [address] | + + + | Home Phone [...] | Author | [facility] | | | and [place] | + + + | Organization | [facility] | | | and [...] [place], [place] | | | | | [address] | | + + + + + | Mao Rea | ECON | Unknown | | + + + + + | Meredith Rea | ECON | Unknown | | + + + + + | Iqra Medina | ECON | [address] | | | | | [place], [place] | | | | | [address] | | + + + + + | Maldonado Rea | ECON | Unknown | | + + + + + Care Team Providers + +------+ + | Care Service Electrician Name | Role | Phone | [...] | | | | | | | SD ARTHDSIS | | | | | | [...] | | | | | | ION SD INSJ | | | | | | [...] | | | | | | SEG SD | | | | | | | ALLOGRAFT | | | | | | | FOR SPINE | | | | | | | SURGERY ONLY | | | | | | | MORSELIZED | | | | | | | SD REINSERT | | | | | | | SPINAL | | | | | | | FIXATION SD | | | | | | | REINSERT | | | | | | | SPINAL | | | | | | | FIXATION SD | | | | | | | REINSERT | | | | | | | SPINAL | | | | | | | FIXATION SD | | | | | | | INSJ | | | | | | | BIOMCHN DEV | | | | | | | INTERVERTEBR | | | | | | | AL DSC SPC | | | | | | | W/ARTHRD SD | | | | | | | INSJ | | | | | | | BIOMCHN DEV | | | | | | | INTERVERTEBR | | | | | | | AL DSC SPC | | | | | | | W/ARTHRD SD | | | | | | | | | | | | | | LAMINEC/FACE | | | | | | | TECT/FORAMIN | | | | | | | ,EACH ADDNL | | | | | | | SD | | | | | | | [...] + + | 02/23/ | Anesthesia | [facility] | Devonte You | | | 2017 | Event | MED CTR OR INTRA OP | MD Monique [address] | | | | | [address] | [place], [place] | | | | | [place] | [address] | | | | | [address] | | | | | | [phone] | Emre Lock MD | | | | | | [address] | | | | | | [place], [place] | | | | | | [address] | | | | | | | [...] +----+---+ + + | | 0 | Benedict | | | | 8 | 43-degrees | | | | 2 | | | | | 8 | | | +----+---+ + + | | 0 | First | | | | 8 | Inc/Proc St | | | | 3 | | | | | 3 | | | +----+---+ + + | | 1 | Benedict off | | | | 1 | [...] [address]26 by | | eral | Forearm; oaxv-icx-lxrdwk catheter | Hasmukh Espinoza RN | Kel [...] [place] | | | | | | [address] | | | | | | | [...]
--- OUTSIDE RECORDS SUMMARY | ~2019-09-09 | XMS | Encounter Summary ---
Demographics + + + | Address | [address] | | | [place] [address] | + + + | Home Phone [...] + + + | Organization | [facility] | | | and [...] [place], [place] | | | | | [address] | | + + + + + | Mao Rea | ECON | Unknown | | + + + + + | Meredith Rea | ECON | Unknown | | + + + + + | Iqra Medina | ECON | [address] | | | | | [place], [place] | | | | | [address] | | + + + + + | Maldonado Rea | ECON | Unknown | | + + + + + Care Team Providers + +------+ + | Care Beater Head Name | Role | Phone | + +------+ + | Brandon Juarez MD | PCP | | + +------+ + Encounter Details +--------+ + + + + | Date | Type | Department | Care Team | Description | +--------+ + + + + | 11/27/ | Hospital | [facility] | Koby George MD | | | 2014 | Encounter | MED CTR LABORATORY | [address] | | | | | [address] | [place] [address] | | | | | [place] | [phone] | | | | | [address] | | | | | | [phone] | | | +--------+ + + + [...] [place] | | | | | | [id number] | | | | | | | | +--------+---------+ + + + documented as of this encounter Visit Diagnoses Not on filedocumented in this encounter"
--- OUTSIDE RECORDS SUMMARY | ~2019-09-09 | XMS | Encounter Summary ---
Demographics + + + | Address | [address] | | | [place] [address] | + + + | Home Phone | | + + + | Preferred Language | Unknown | + + + | Marital Status | | + + + | Uatsdin Affiliation | Unknown | + + + | Race | Unknown | + + + | Ethnic Group | Unknown | + + + Author + + + | Author | [facility] | | | and [place] | + + + | Organization | [facility] [...] [place], [place] | | | | | [address] | | + + + + + | Mao Rea | ECON | Unknown | | + + + + + | Meredith Rea | ECON | Unknown | | + + + + + | Iqra Medina | ECON | [address] | | | | | [place], [place] | | | | | [address] | | + + + + + | Maldonado Rea | ECON | Unknown | | + + + + + Care Team Providers + +------+ + | Care Imaging Science Professor Name | Role | Phone | + +------+ + | Brandon Juarez MD | PCP | | + +------+ + Reason for Visit + + + | Reason | Comments | + + + | Medication Refill | oxyCODONE 10 MG TABS | + + + Encounter Details +--------+ + + + + | Date | Type | Department | Care Team | Description | +--------+ + + + + | 03/23/ | Telephone | [facility] [place] | Koby George MD | Medication Refill | | 2017 | | NEUR[address]URGERY [address] | [address] | (oxyCODONE 10 MG | | | | [address] | [place] [address] | TABS ) | | | | [place] | [phone] | | | | | [address] | | | | | | [phone] | | | +--------+ + + + [...] [place] | | | | | | [address] | | | | | | | | +--------+---------+ + + + documented as of this encounter Visit Diagnoses Not on filedocumented in this encounter"
--- OUTSIDE RECORDS SUMMARY | ~2019-09-09 | XMS | Encounter Summary ---
Demographics + + + | Address | [address] | | | [place] [address] | + + + | Home Phone [...] Organization | [facility] | | [...] [place], [place] | | | | | [address] | | + + + + + | Mao Rea | ECON | Unknown | | + + + + + | Meredith Rea | ECON | Unknown | | + + + + + | Iqra Medina | ECON | [address] | | | | | [place], [place] | | | | | [address] | | + + + + + | Maldonado Rea | ECON | Unknown | | + + + + + Care Team Providers + +------+ + | Care Flying Squad Worker Name | Role | Phone | [...] | | [address] | [place] [address] | | | | | [place] | [phone] | | | | | [address] | | | | | | [phone] | | | +--------+ + + + [...] [place] | | | | | | [id number] | | | | | | | | +--------+---------+ + + + documented as of this encounter Visit Diagnoses Not on filedocumented in this encounter"
--- OUTSIDE RECORDS SUMMARY | ~2019-09-09 | XMS | Encounter Summary ---
Demographics + + + | Address | [address] | | | [place] [address] | + + + | Home Phone [...] Author | [facility] | | | and [place] | + + + | Organization | [facility] | [...] [place], [place] | | | | | [address] | | + + + + + | Mao Rea | ECON | Unknown | | + + + + + | Meredith Rea | ECON | Unknown | | + + + + + | Iqra Medina | ECON | [address] | | | | | [place], [place] | | | | | [address] | | + + + + + | Maldonado Rea | ECON | Unknown | | + + + + + Care Team Providers + +------+ + | Care Animal Cruelty Investigation Supervisor Name | Role | Phone | [...] [address] | | | | | [place] [address] | [address] | | | | | [phone] | | | +--------+ + + + [...] [place] | | | | | | [address] | | | | | | | | +--------+---------+ + + + documented as of this encounter Visit Diagnoses Not on filedocumented in this encounter"
--- OUTSIDE RECORDS SUMMARY | ~2019-09-09 | XMS | Encounter Summary ---
Demographics + + + | Address | [address] | | | [place] [address] | + + + | Home Phone [...] | Author | [facility] | | | and Carlosana | + + + | Organization | [facility] | [...] [place], [place] | | | | | [address] | | + + + + + | Mao Rea | ECON | Unknown | | + + + + + | Meredith Rea | ECON | Unknown | | + + + + + | Iqra Medina | ECON | [address] | | | | | [place], [place] | | | | | [address] | | + + + + + | Maldonado Rea | ECON | Unknown | | + + + + + Care Team Providers + +------+ + | Care Cma Or Lpn Name | Role | Phone | + +------+ + | Sherie Vela PA-C | PCP | | + +------+ + Reason for Visit + + + | Reason | Comments | + + + | Pain Management | | + + + Encounter Details +--------+ + + + + | Date | Type | Department | Care Team | Description | +--------+ + + + + | 01/01/ | Documentati | [facility] | Koby George MD | Pain Management | | 2019 | on | NEUROSURGERY [address] | [address] | | | | | [address] | [place] [address] | | | | | [place] | [phone] | | | | | [address] | | | | | | [phone] | | | +--------+ + + + [...] documented as of this encounter Progress Notes Abigail Thornton, Cosmetology Professor - 01/01/2019 4:41 PM PST Outpatient Morphine Equivalent Daily Dose (MEDD) None Opioid Risk Tool (ORT): Total Score 8 (01/02/197) (0 to 3 = Low risk: 6% chance of developing problematic behaviors, 4 to 7 = Moderate risk: 28% chance of developing problematic behaviors, 8 or more = High risk: 90% chance of develop ing problematic behaviors.) PEG Pain screening tool (Pain, enjoyment, general activity) Total score: 7.33 ( 9 1335) PHQ9 Depression scale: Date of Last Screening Total Score 24 (01/02/19 133) (1-4 = Minimal depression, 5-9 = Mild depression, 10-14 = Moderate depression, 15-19 = Mode rately severe depression, 20-27 = Severe depression) General Anxiety Disorder (MAGDALENO-7): Total Score 6 (01/02/19 1336) (8-9 = consistent with Generalized anxiety disorder, >15 = severe) The following information was obtained from [email or web address] on 01/01/19. The following information was obtained from https://secureaccess.Versonics.gov/myAccess/saw/select .do on 01/01/19. [facility] was checked on 01/01/19 and no medications have been dispensed in the last 3 months. Tdocumented in this encounter Plan of Treatment +--------+---------+ + + + | Date | Type | Specialty | Care Team | Description | +--------+---------+ + + + | 12/07/ | Office | Neurology | Abundio Khanna MD | | | 2019 | Visit | | [address] | | | | | | [place] | | | | | | [phone] | | | | | | | | +--------+---------+ + + + documented as of this encounter Visit Diagnoses Not on filedocumented in this encounter"
--- OUTSIDE RECORDS SUMMARY | ~2019-09-09 | XMS | Encounter Summary ---
Demographics + + + | Address | [address] | | | [place] [address] | + + + | Home Phone [...] Organization | [facility] | | [...] [place], [place] | | | | | [address] | | + + + + + | Mao Rea | ECON | Unknown | | + + + + + | Meredith Rea | ECON | Unknown | | + + + + + | Iqra Medina | ECON | [address] | | | | | [place], [place] | | | | | [address] | | + + + + + | Maldonado eRa | ECON | Unknown | | + + + + + Care Team Providers + +------+ + | Care Land Surveyor Manager Name | Role | Phone | [...] | | [address] | [place] [address] | | | | | [place] | [phone] | | | | | [address] | | | | | | [phone] | | | +--------+--------+ + + + [...] [place] | | | | | | [address] | | | | | | | | +--------+---------+ + + + documented as of this encounter Visit Diagnoses + + | Diagnosis | + + | S/P lumbar fusion Arthrodesis status | + + documented in this encounter"
--- OUTSIDE RECORDS SUMMARY | ~2019-09-09 | XMS | Encounter Summary ---
Demographics + + + | Address | [address] | | | [place] [address] | + + + | Home Phone [...] + | Author | [facility] | | | and [place]ana | + + + | Organization | [facility] | | [...] [place], [place] | | | | | [address] | | + + + + + | Mao Rea | ECON | Unknown | | + + + + + | Meredith Rea | ECON | Unknown | | + + + + + | Iqra Medina | ECON | [address] | | | | | [place], [place] | | | | | [address] | | + + + + + | Maldonado Rea | ECON | Unknown | | + + + + + Care Team Providers + +------+ + | Care Repairer Recreational Vehicle Name | Role | Phone | + +------+ + | Brandon Juarez MD | PCP | | + +------+ + Encounter Details +--------+ + + + + | Date | Type | Department | Care Team | Description | +--------+ + + + + | 11/27/ | [facility] | [facility] | Koby George MD | Sleep apnea, | | 2015 | Encounter | MED CTR | [address] | obstructive; | | | | ELECTRODIAGNOSTICS | [place] [address] | Essential | | | | [address] | [phone] | hypertension, | | | | [place] [address] | | benign; Fatigue; | | | | [phone] | | Cancer (HCC); | | | [...] [place] | | | | | | [address] | | | | | | | [...] Christopher Alvarado MD - 11/29/2014 7:31 AM [facility] Adult ECG Report | | | | [...]
--- OUTSIDE RECORDS SUMMARY | ~2019-09-09 | XMS | Encounter Summary ---
Demographics + + + | Address | [address] | | | [place] [address] | + + + | Home Phone [...] Organization | [facility] | | [...] [place], [place] | | | | | [address] | | + + + + + | Mao Rea | ECON | Unknown | | + + + + + | Meredith Rea | ECON | Unknown | | + + + + + | Iqra Medina | ECON | [address] | | | | | [place], [place] | | | | | [address] | | + + + + + | Maldonado Rea | ECON | Unknown | | + + + + + Care Team Providers + +------+ + | Care Assistant To The Dean Name | Role | Phone | + [...] | | [address] | [place] [address] | | | | | [place] | [phone] | | | | | [address] | | | | | | [phone] | | | +--------+ + + + [...] [place] | | | | | | [address] | | | | | | | [...] follow up. COMPARISON: Multiple priors. FINDINGS: | [facility] | | Again visualized are hardware for posterior fusion from L2 through the | [facility] | | SI joints with spacer hardware [...] + + | Performing | Address | City/State/[facility] | Phone Number | | Organization | | | | + + + + + | [facility] [facility] | [address] | [place] | [phone] | | [facility] | | [address] | | | - IMAGING | | [...]
--- OUTSIDE RECORDS SUMMARY | ~2019-09-09 | XMS | Encounter Summary ---
Demographics + + + | Address | [address] | | | [place] [address] | + + + | Home Phone | | + + + | Preferred Language | Unknown | + + + | Marital Status | | + + + | Voodoo Affiliation | Unknown | + + + | Race | Unknown | + + + | Ethnic Group | Unknown | + + + Author + + + | Author | [facility] | | | and [place] | + + + | Organization | [facility] | | | and [place]ana [...] [place], [place] | | | | | [address] | | + + + + + | Mao Rea | ECON | Unknown | | + + + + + | Meredith Rea | ECON | Unknown | | + + + + + | Iqra Medina | ECON | [address] | | | | | [place], [place] | | | | | [address] | | + + + + + | Maldonado Rea | ECON | Unknown | | + + + + + Care Team Providers + +------+ + | Care Electrical Integrator Name | Role | Phone | + [...] Closed | | Neurology | Diagnoses | [place], | Samir, | | | | | Parkinsons | VIRY Rehman | Jarvis Qiu MD | | | | | ([facility]) | [address] | | | | [address] | [address] | | | | | | [address] | [place] [address] | | | | | | [place], | [address] | | | | | | [place] [address] | [place] | | | | | | Phone: | [address] Phone: | | | | | | [phone] | [phone] | | | | | | Fax: | Fax: | | | | | | [phone] | [phone] | +--------+--------+ + + + + Encounter Details +--------+---------+ + + + | Date | Type | Department | Care Team | Description | +--------+---------+ + + + | 07/12/ | Office | [facility] [place] | Jarvis Dawson, | 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 Also, your symptoms may exchange teller time. And you may have different symptoms [...] may also feel depressed. Date Last Reviewed: 12/01/201719996210-1229 [employer] [place] [address], [place] [address]. All righ ts reserved. This information is not intended as a substitute for professional medical care. Always follow your healthcare professional's instructions. You may find more information about Parkinson disease and it's related diseases at the [facility] on the web. Electronically signed [...] [place] | | | | | | [address] | | | | | | | [...]
--- OUTSIDE RECORDS SUMMARY | ~2019-09-09 | XMS | Encounter Summary ---
Demographics + + + | Address | [address] | | | [place] [address] | + + + | Home Phone [...] + + | Author | [facility] | | | and [place]ana | + + + | Organization | [facility] [...] [place], [place] | | | | | [address] | | + + + + + | Mao Rea | ECON | Unknown | | + + + + + | Meredith Rea | ECON | Unknown | | + + + + + | Iqra Medina | ECON | [address] | | | | | [place], [place] | | | | | [address] | | + + + + + | Maldonado Rea | ECON | Unknown | | + + + + + Care Team Providers + +------+ + | Care Drill Hand Name | Role | Phone | [...] | Lumbar | Tino, | [address] | | | | | radiculopath | Luis Carlos Lerner MD | [place], | | | | | y | [address] | [place] | | | | | Procedures | [address] | [address] | | | | | [place] INJECT | [place] | Phone: | | | | | ANES/STEROID | [address] | [phone] | | | | | FORAMEN | Phone: | Fax: | | | | | LUMBAR/SACRA | [phone] | [phone] | | | | | L W IMG | Fax: | | | | | | GUIDE ,1 | [phone] | | | | | | LEVEL [place] | | | | | | | [...] + + | 12/06/ | Hospital | [facility] | Wilfredo Hackett, | Lumbar radiculopathy | | 2019 | Encounter | MED CTR XRAY [address] | PA-C [address] | | | | | [address] [place] | [address] [place] | | | | | [place] [address] | [place] [address] | | | | | [phone] | [phone] | | | | | | | [...] + + + +---------+ + + | [place]-3 Fatty | Take 2 capsules by | [...] [place] | | | | | | [id number] | | | | | | | [...]
--- OUTSIDE RECORDS SUMMARY | ~2019-09-09 | XMS | Encounter Summary ---
Demographics + + + | Address | [address] | | | [place] [address] | + + + | Home Phone [...] | [facility] | | [...] [place], [place] | | | | | [address] | | + + + + + | Mao Rea | ECON | Unknown | | + + + + + | Meredith Rea | ECON | Unknown | | + + + + + | Iqra Medina | ECON | [address] | | | | | [place], [place] | | | | | [address] | | + + + + + | Maldonado Rea | ECON | Unknown | | + + + + + Care Team Providers + +------+ + | Care Molding And Trim Installer Name | Role | Phone | + +------+ + | Brandon Juarez MD | PCP | | + +------+ + Encounter Details +--------+ + + + + | Date | Type | Department | Care Team | Description | +--------+ + + + + | 12/10/ | Orders Only | [facility] | Koby George MD | Lumbar radiculopathy | | 2017 | | NEUROSURGERY [address] | [address] | (Primary Dx); | | | | [address] | [place] [address] | 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 | | FINDINGS: There is similar tortuosity [...] + | [facility] | [address] | [place] | [phone] | | [facility] | | [address] | | | - IMAGING | | | | + + + + + CBC with Differential (02/18/2017 9:42 AM PDT) + + + + + + | Component | Value | Ref Range | Performed | Pathologist | | | | | At | Signature | + + + + + + | WBC | 8.0 | 4.0 - 11.0 K/uL | [facility] | | | | [...] | Monocytes | | K/uL | [facility] | | | | | | MEDICAL | | | | | | CENTER - | | | | | | LABORATORY | | + + + + + + | Absolute | 0.20 | 0.00 - 0.40 | [facility] | | | Eosinophils | | K/uL | [facility] | | | | | | MEDICAL | | | | | | CENTER - | | | | | | LABORATORY | | + + + + + + | Absolute | 0.00 | 0.00 - 0.10 | [facility] | | | Basophils | | K/uL | . [facility] | | | | | | [...] + | [facility] | [address] | [place] | [phone] | | [facility] | | [address] | | | - LABORATORY | | [...] 107 | 70 - 109 mg/dL | [facility] | | | | | | [facility] | | | | | | MEDICAL | | | | | | CENTER - | | | | | | LABORATORY | | + + + + + + | BUN | 10 | 7 - 18 mg/dL | [facility] [...] mL/min/1.73m2 | [facility] | | | ETHIOPIAN | RATE,ESTIMATED | | MEDICAL | | | | mL/min/1.08i7Ycab than | | CENTER - | | [...] + | [facility] | [address] | [place] | [phone] | | [facility] | | [address] | | | - LABORATORY | | [...] | | | | JUAN SALDIVAR MD ([id number]) | | | | | | on [...] | | unspecified | + + | Pseudoarthrosis of [...] + | Former Tobacco Smoker - quit 1980 Personal history of tobacco use, presenting hazards | | to health | + + | H/O colon cancer - 2004 Personal history of malignant neoplasm of large intestine | + + documented in this encounter"
--- OUTSIDE RECORDS SUMMARY | ~2019-09-09 | XMS | Encounter Summary ---
Demographics + + + | Address | [address] | | | [place] [address] | + + + | Home Phone | | + + + | Preferred Language | Unknown | + + + | Marital Status | | + + + | Judaism Affiliation | Unknown | + + + | Race | Unknown | + + + | Ethnic Group | Unknown | + + + Author + + + | Author | [facility] | | | and [place] | + + + | Organization | [facility] | | [...] [place], [place] | | | | | [address] | | + + + + + | Mao Rea | ECON | Unknown | | + + + + + | Meredith Rea | ECON | Unknown | | + + + + + | Iqra Medina | ECON | [address] | | | | | [place], [place] | | | | | [address] | | + + + + + | Maldonado Rea | ECON | Unknown | | + + + + + Care Team Providers + +------+ + | Care Licensed Customs Broker Name | Role | Phone | [...] | (Primary Dx) | | | | [place], | [address] [place] [address] | | | | | [place] [address] | [address] | | | | | [phone] | | | +--------+ + + + [...] [place] | | | | | | [address] | | | | | | | [...] + + | Performing | Address | City/State[facility] | Phone Number | | Organization | [...]
--- OUTSIDE RECORDS SUMMARY | ~2019-09-09 | XMS | Encounter Summary ---
Demographics + + + | Address | [address] | | | [place] [address] | + + + | Home Phone [...] + | Organization | [facility] | | | and [place]ana [...] [place], [place] | | | | | [address] | | + + + + + | Mao Rea | ECON | Unknown | | + + + + + | Meredith Rea | ECON | Unknown | | + + + + + | Iqra Medina | ECON | [address] | | | | | [place], [place] | | | | | [address] | | + + + + + | Maldonado Rea | ECON | Unknown | | + + + + + Care Team Providers + +------+ + | Care Product Assembler Name | Role | Phone | + +------+ + | Brandon Juarez MD | PCP | | + +------+ + Encounter Details +--------+ + + + + | Date | Type | Department | Care Team | Description | +--------+ + + + + | 11/27/ | Preadmit | [facility] | Koby George MD | Sleep apnea, | | 2015 | Visit | MED CTR [facility] | [address] | obstructive; | | | | CLINIC [address] | [place] [address] | Essential | | | | [place] | [phone] | hypertension, | | | | [address] | | benign; Fatigue; | | | | [phone] | | Cancer (HCC); | | | [...] [place] | | | | | | [address] | | | | | | | [...] + | MISCELLANEOUS LAB | | | [phone] | + +---------+ + + | MISCELANIOUS LAB | | | [phone] | + +---------+ + + CBC with [...] | | | | | | [facility] | | | | | | MEDICAL [...] + | [facility] | [address] | [place] | [phone] | | [facility] | | [address] | | | - LABORATORY | | | | + + + + + | [facility] | [address] | [place] | | | [facility] | | [address] | | | - LABORATORY | | [...] | | | | mg/dL | [facility] | | | | | | MEDICAL | | | | | | CENTER - | | | | | | LABORATORY | | + + + + + + | eGFR if not | >60Comment: GLOMERULAR | >=60 | [facility] | | | | FILTRATION | mL/min/1.73m2 | [facility] | | | [place] | RATE,ESTIMATED | | MEDICAL | | | | mL/min/1.61i8Bzvj than | | CENTER - | | [...] | | | | mg/dL | [facility] | | | | | | MEDICAL [...] [address] | [place] | [phone] | | [facility] | | [address] | | | - LABORATORY | | | | + + + + + | [facility] | [address] | [place] | | | [facility] | | [address] | | | - LABORATORY | | [...]
--- OUTSIDE RECORDS SUMMARY | ~2019-09-09 | XMS | Encounter Summary ---
Demographics + + + | Address | [address] | | | [place] [address] | + + + | Home Phone [...] | Author | [facility] | | | and [place] | + + + | Organization | [facility] [...] [place], [place] | | | | | [address] | | + + + + + | Mao Rea | ECON | Unknown | | + + + + + | Meredith Rea | ECON | Unknown | | + + + + + | Iqra Medina | ECON | [address] | | | | | [place], [place] | | | | | [address] | | + + + + + | Maldonado Rea | ECON | Unknown | | + + + + + Care Team Providers + +------+ + | Care Towel Hemmer Name | Role | Phone | + +------+ + | Brandon Juarez MD | PCP | | + +------+ + Encounter Details +--------+ + + + + | Date | Type | Department | Care Team | Description | +--------+ + + + + | 12/10/ | Orders Only | [facility] | Koby Goerge MD | Lumbar radiculopathy | | 2017 | | NEUROSURGERY [address] | [address] | (Primary Dx); | | | | [address] | [place] [address] | Pseudoarthrosis of | | | | [place] | [phone] | lumbar spine; | | | | [address] | | Synovial cyst of | | | | [phone] | | lumbar facet joint; | | [...] [place] | | | | | | [address] | | | | | | | [...] + | [facility] | [address] | [place] | [phone] | | [facility] | | [address] | | | - IMAGING | | [...] + | [facility] | [address] | [place] | [phone] | | [facility] | | [address] | | | - LABORATORY | | [...] mL/min/1.73m2 | [facility] | | | [place] | RATE,ESTIMATED | | MEDICAL | | | | mL/min/1.82g3Vfhy than | | CENTER - | | [...] + | [facility] | [address] | [place] | [phone] | | [facility] | | [address] | | | - LABORATORY | | [...] | | | | JUAN SALDIVAR MD ([id number]) | | | | | | on [...]
--- OUTSIDE RECORDS SUMMARY | ~2019-09-09 | XMS | Encounter Summary ---
Demographics + + + | Address | [address] | | | [place] [address] | + + + | Home Phone | | + + + | Preferred Language | Unknown | + + + | Marital Status | | + + + | Adventism Affiliation | Unknown | + + + | Race | Unknown | + + + | Ethnic Group | Unknown | + + + Author + + + | Author | [facility] | | | and [place] | + + + | Organization | [facility] | [...] [place], [place] | | | | | [address] | | + + + + + | Mao Rea | ECON | Unknown | | + + + + + | Meredith Rea | ECON | Unknown | | + + + + + | Iqra Medina | ECON | [address] | | | | | [place], [place] | | | | | [address] | | + + + + + | Maldonado Rea | ECON | Unknown | | + + + + + Care Team Providers + +------+ + | Care Process Steward Name | Role | Phone | + +------+ + | Sherie Vela PA-C | PCP | | + +------+ + Encounter Details +--------+ + + + + | Date | Type | Department | Care Team | Description | +--------+ + + + + | 08/09/ | Hospital | [facility] | Pedro Riggins | S/P lumbar fusion | | 2017 | Encounter | MED CTR XRAY [address] | [address] | | | | | [place] | [address] [facility] [address] | | | | | [place] [address] | [place], [place] | | | | | [phone] | [address] | | | | | | | [...] [place] | | | | | | [address] | | | | | | | [...]
--- OUTSIDE RECORDS SUMMARY | ~2019-09-09 | XMS | Encounter Summary ---
Demographics + + + | Address | [address] | | | [place] [address] | + + + | Home Phone | | + + + | Preferred Language | Unknown | + + + | Marital Status | | + + + | Sabianism Affiliation | Unknown | + + + | Race | Unknown | + + + | Ethnic Group | Unknown | + + + Author + + + | Author | [facility] | | | and Carlosana | + + + | Organization | [facility] | | [...] [place], [place] | | | | | [address] | | + + + + + | Mao Rea | ECON | Unknown | | + + + + + | Meredith Rea | ECON | Unknown | | + + + + + | Iqra Medina | ECON | [address] | | | | | [place], [place] | | | | | [address] | | + + + + + | Maldonado Rea | ECON | Unknown | | + + + + + Care Team Providers + +------+ + | Care Supply And Distribution Manager Name | Role | Phone | + +------+ + | Sherie Vela PA-C | PCP | | + +------+ + Reason for Referral Evaluate & Treat (Routine) + + + + + + + | Status | Reason | Specialty | Diagnoses / | Referred By | Referred To | | | | | Procedures | Contact | Contact | + + + + + + + | Authorized | Specialty | Neurology | Diagnoses | Samir | Ginette Lewis | | | Services | | Parkinson's | Jarvis Qiu | MD Jonathon 1933 | | | Required | | disease | | E | | | | | ([facility]) | [facility] | KEVYN [place], | | | | | Essential | [place] [address] | [place] [address] | | | | | tremor Mild | [address] | Phone: | | | | | cognitive | [place] | [phone] | | | | | impairment | [address] | Fax: | | | | | | Phone: | [phone] | | | | | | [phone] | | | | | | | Fax: | | | | | | | [phone] | | + + + + + + + Reason for [...] [place] | | | | | | [address] | [address] Phone: | | | | | | Phone: | [phone] | | | | | | [phone] | Fax: | | | | | | Fax: | [phone] | | | | | | [phone] | | +--------+ + + + + + Encounter Details +--------+---------+ + + + | Date | Type | Department | Care Team | Description | +--------+---------+ + + + | 06/27/ | Office | [facility] [place] | Jarvis Dawson, | Probable Idiopathic | | 2019 | Visit | NEUROLOGY JENNA[place]armelita | MD Shavon CARCAMO | Parkinson's disease | | | | [address], | [place] [address] | vs other | | | | [address] [place] | [place] | synucleinopathy | | | | [place] [address] | [address] | (HCC), JAIR scan | | | | [phone] | | positive complicated | | | [...] | disorder | +--------+---------+ + + + Social History [...] encounter Progress Notes Jarvis Dawson MD - 06/27/2019 8:15 AM PDTFormatting of this note might be different fr om the original. [facility] NEUROLOGY FOLLOW UP NOTE Primary Care Physician: Sherie Vela PATIENT NAME: Uziel Rea : 1945 TODAY'S DATE: 06/27/2019 SUMMARY/DISCUSSION/COUNSELING: Motor system has significant improved with increase in the carbidopa/levodopa to 25/100, 3 tabs 3 times daily. There is mild treatment complication with pre-hallucinations occurring about once a week. There is mild motor fluctuation with the medication wearing off about 5 PM. Treatment is complicated by underlying essential tremor and chronic lower back pain (st atus post 2 L-spine surgeries) that limits his ambulation. The patient also has mild cognitive impairment. Gurinder cognitive assessment repeated tod ay demonstrate total score of 17/30 with most prominent deficit in visual spatial/executive function and delayed recall. The visual-spatial deficit is common in Lewy body dementia and correlates with the patient's diagnosis of Parkinson's disease. Cognitive impairment is co mplicated by untreated LEANDRO due to patient having significant claustrophobia and not being ab le to tolerate CPAP therapy. He has also tried oral appliance therapy and was not able to t olerate it. Significant anxiety with history of intractable depression and anxiety continue s to complicate treatment. 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 All of the above discussed with the patient and his today. IMPRESSION: 1. 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 Mild cognitive impairment 3. Obstructive sleep apnea of adult 4. Intolerance of continuous positive airway pressure (CPAP) ventilation 5. REM sleep behavior disorder 6. Essential tremor RECOMMENDATIONS: 1. Continue carbidopa/levodopa 25/100, 3 tablets at 5 AM, 2 PM, and 8 PM. 2. Try to stay physically active, but limited by chronic lower back pain 3. Continue melatonin 20 mg nightly for REM sleep behavior disorder 4. I informed the patient that I will be retiring from neurology practice and moving to [facility] to work as a sleep medicine specialist. The patient will be referred to Dr. Ginette stevens [place] for transfer of neurological care. 5. I advised that I will be available at [place] sleep clinic once a month if he wishes to return for treatment for LEANDRO. I spent at least 30 minutes face to face with the patient, with over 50% spent in counselin g and/or coordination of care regarding above specified issues. This document was generated in part using voice recognition software. Frequent wrong word or sound-alike substitutions may have occurred due to the inherent limitations of the voice recognition software. Although I have attempted to edit the content, I have not thoroughly proofread this note, and dot compliance manager errors are likely to occur. CHIEF COMPLAINT: Neurologic Problem (Parkinson's Disease) Since the patient's last visit, the patient reports the following: Visit to the ER or hospital? NO New test performed? NO Have been seen by any other providers? YES Provider: Dr. Fox and DOM Villalobos. Reason: preparation for back surgery and MRI's/Xrays History OF PRESENT ILLNESS: Uziel Rea is a 74 y.o. male with Parkinson's disease who is returning for a follow up. The patient is accompanied by the patient's . Since increasing carbidopa/levodopa to 3 tablets 3 times a day, the patient states that he feels better. He notes that his memory is improved and his tremor is also improved. His ga it is also improved as well. However this is complicated by chronic lower back pain status post 2 lumbar spine surgeries. He has seen Dr. Everett at [facility] orthopedics who is geo mmending a third lumbar spine surgery. There is no significant motor fluctuation during the daytime. However by about 5 PM, he no al increase in tremor and perhaps some worsening in his gait. If he misses a 8 PM dose, by his bedtime 9:00 PM, he notes similar worsening of symptoms. There is some pre-hallucinations where he sees a person in the corner of his eyes about onc e a week. There is no dyskinesia. He states that he is sleeping good through the night. He has history of moderate LEANDRO and u nable to use CPAP because of history of claustrophobia. He has tried oral appliance therapy and that was not able to tolerate it. There is mild orthostatic dizziness associated with lower back pain when he tries to stand. This is chronic and unchanged. There is significant improvement in dream enactment behavior since starting melatonin. He continues on 20 mg nightly. On occasion, his notes that he talks and sometimes grabs h er shoulder. But there is no more violent dream enactment behavior. Since starting melaton in, the frequency and the intensity of dream enactment has significantly declined. He continues to be followed by Mr. Sal Joaquin for his psychiatric disorders. He continue s to have depression and anxiety which is moderately severe. REVIEWED SLEEP AND NEUROLOGY HISTORY: PCP: Dr. Vela NEUROLOGY AND SLEEP PROBLEM LIST: 1. Tremor [...] on cariprazine) 5. LEANDRO, intolerant to CPAP (claustrophobia). Intolerant to OAT. 6. Chronic immuno-modulation therapy for rheumatoid arthritis 7. Chronic lower back pain s/p 2 lumbar spine surgeries (Dr. George) Uziel Cuencadavidtwyla a 73 y.o.RHD malewith history of major depression treated chronica lly with atypical antipsychotics and lithium, chronic immunomodulation for RA, LEANDRO, COPD, wh o was referred to me by DOM Dennis-Cfor evaluation of Parkinson's disease. [facility] LEANDRO and RBD. 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 Degenerative disc disease. 09/25/18 ESS: 4 FSS: 4.1 11/29/18 ESS: 5 FSS: 3 UPDRS 07/12/18 - 66 02/07/19 - MOCA V7.1 on 07/12/18 - V 7.2 on 06/27/2019 - (-4 VS/EX; -2 serial 7; -1 word fluency; -5 delayed recall; -1 orie ntation (date)). Education 13 years. REVIEW OF SYSTEMS Review of Systems Musculoskeletal: Positive for back pain. Negative for falls. Neurological: Positive for tremors. Negative for dizziness. Psychiatric/Behavioral: Positive for depression, hallucinations and memory loss. The patien t is nervous/anxious. The patient does not have insomnia. PHYSICAL EXAM Vitals with Comments 02/07/2019 02/26/2019 05/07/2019 06/27/2019 SYSTOLIC 122 151 118 138 DIASTOLIC 80 98 82 76 Pulse 60 70 86 81 Temp 97.5 - 98.2 98.3 Temp Comments - - - - Resp 18 - 18 18 Weight 229 lbs 12 oz - 235 lbs 14 oz 236 lbs 12 oz Height 5' 8" - 5' 8" 5' 8" SPO2 97 - 96 94 BMI 35 kg/m2 - 35.9 kg/m2 36.1 kg/m2 Pain Score - - - - Pain Score - - - - Pain Loc - - - - Pain Edu? - - - - Physical Exam Constitutional: He is oriented to person, place, and time. Eyes: Pupils are equal, round, and reactive to light. EOM are normal. Neurological: He is oriented to person, place, and time. Oilpel-nrcv-opfhdm test: mild bila teral tremor. Neurologic Exam Mental Status Oriented to person, place, and time. Attention: decreased. Speech: (Occasional halting) Level of consciousness: alert Knowledge: good and consistent with education. Normal comprehension. MoCA 7.2: (-4 VS/EX; -2 serial 7; -1 word fluency; -5 delayed recall; -1 orientation (date)). Education 13 years. Cranial Nerves CN III, IV, Pupils are equal, round, and reactive to light. Extraocular motions are normal. CN VII Facial expression full, symmetric. Right [...] Gait, Coordination, and Reflexes Gait Gait: (slow, walks with a single prong cane, enhanced tremor of hand worse on the right. Mi ld shuffling, no festination.) Coordination Qqimnd-ndbp-aakcdl test: mild bilateral tremor. Tremor Resting tremor: present (intermittent mild to moderate amplitude, moderate frequency, worse on the right) Intention tremor: absent Able to stand slow with pushing on arms PAST MEDICAL HISTORY Past Medical History: Diagnosis [...] PM, and 8 PM 270 tablet 9 cariprazine (VRAYLAR) 3 mg capsule Vraylar 3 [...] Allergies Electronically Signed by: Jarvis Dawson MD, 06/27/2019 9:25 documented in this e ncounter Plan of [...] [place] | | | | | | [address] | | | | | | | | +--------+---------+ + + + + + +--------+ + + | Name | Type | Priori | Associated Diagnoses | Order Schedule | | | | ty | | | + + +--------+ + + | Neurology, External | Outpatient | Routin | Probable | Ordered: 06/27/2019 | | - AMB Referral | Referral | e | Idiopathic | | | | | | Parkinson's disease | | | | | | vs other | | | | | | synucleinopathy | | | | | | ([facility]), JAIR scan | | | | | | positive complicated | | | | | | by essential tremor | | | | | | Essential tremor | | | | | | Mild cognitive | | | | | | impairment | | + + +--------+ + + documented as of this encounter Visit Diagnoses + + | Diagnosis | + + | Probable Idiopathic Parkinson's disease vs other synucleinopathy (HCC), JAIR scan | | positive complicated by essential tremor - Primary Paralysis agitans | + + | Essential tremor | + + | Mild cognitive impairment Mild cognitive impairment, so stated | + + | Obstructive sleep apnea of adult Obstructive sleep apnea (adult) (pediatric) | + + | Intolerance of continuous positive airway pressure (CPAP) ventilation | + + | REM sleep behavior disorder | + + documented in this encounter
--- OUTSIDE RECORDS SUMMARY | ~2019-09-09 | XMS | Encounter Summary ---
Demographics + + + | Address | [address] | | | [place] [address] | + + + | Home Phone [...] | Organization | [facility] | | | and Carlosana [...] [place], [place] | | | | | [address] | | + + + + + | Mao Rea | ECON | Unknown | | + + + + + | Meredith Rea | ECON | Unknown | | + + + + + | Iqra Medina | ECON | [address] | | | | | [place], [place] | | | | | [address] | | + + + + + | Maldonado Rea | ECON | Unknown | | + + + + + Care Team Providers + +------+ + | Care Telephone Surveyor Name | Role | Phone | + +------+ + | Sherie Vela PA-C | PCP | | + +------+ + Reason for Visit + + + | Reason | Comments | + + + | Request For Medical | | | Records | | + + + Encounter Details +--------+ + + + + | Date | Type | Department | Care Team | Description | +--------+ + + + + | 07/12/ | Telephone | [facility] [place] | Jarvis Dawson, | Request For Medical | | 2018 | | NEUROLOGY [place] | [address] | Records | | | | [address], | [place] [address] | | | | | [address] [place] | [place] | | | | | [place] [address] | [address] | | | | | [phone] | | | +--------+ + + + [...] [place] | | | | | | [address] | | | | | | | | +--------+---------+ + + + documented as of this encounter Visit Diagnoses Not on filedocumented in this encounter"
--- OUTSIDE RECORDS SUMMARY | ~2019-09-09 | XMS | Encounter Summary ---
Demographics + + + | Address | [address] | | | [place] [address] | + + + | Home Phone | | + + + | Preferred Language | Unknown | + + + | Marital Status | | + + + | Christian Affiliation | Unknown | + + + | Race | Unknown | + + + | Ethnic Group | Unknown | + + + Author + + + | Author | [facility] | | | and Carlosana | + + + | Organization | [facility] | [...] [place], [place] | | | | | [address] | | + + + + + | Mao Rea | ECON | Unknown | | + + + + + | Meredith Rea | ECON | Unknown | | + + + + + | Iqra Medina | ECON | [address] | | | | | [place], [place] | | | | | [address] | | + + + + + | Maldonado Rea | ECON | Unknown | | + + + + + Care Team Providers + +------+ + | Care Real Estate Legal Secretary Name | Role | Phone | + [...] | | [address] | [place] [address] | | | | | [place] | [phone] | | | | | [address] | | | | | | [phone] | | | +--------+--------+ + + + [...] [place] | | | | | | [address] | | | | | | | | +--------+---------+ + + + documented as of this encounter Visit Diagnoses + + | Diagnosis | + + | S/P lumbar fusion - Primary Arthrodesis status | + + documented in this encounter"
--- OUTSIDE RECORDS SUMMARY | ~2019-09-09 | XMS | Encounter Summary ---
Demographics + + + | Address | [address] | | | [place] [address] | + + + | Home Phone [...] Organization | [facility] [...] [place], [place] | | | | | [address] | | + + + + + | Mao Rea | ECON | Unknown | | + + + + + | Meredith Rea | ECON | Unknown | | + + + + + | Iqra Medina | ECON | [address] | | | | | [place], [place] | | | | | [address] | | + + + + + | Maldonado Rea | ECON | Unknown | | + + + + + Care Team Providers + +------+ + | Care Credit Correspondence Clerk Name | Role | Phone | [...] | Logan Rios MD | [address] | | | | | radiculopath | [address] | [place], | | | | | y Left leg | [address] | [place] | | | | | pain Left | [place], | [address] | | | | | leg weakness | [place] [address] | Phone: | | | | | Numbness | Phone: | [phone] | | | | | of left foot | [phone] | Fax: | | | | | History of | Fax: | [phone] | | | | | lumbar | [phone] | | | | | | fusion [...] | injury | MD Sohail | [address] | | | | n | | [address] | [place], | | | | | | [place] | [place] [address] | | | | | | [place], [place] | Phone: | | | | | | [address] | [phone] | | | | | | Phone: | Fax: | | | | | | [phone] | [phone] | | | | | | Fax: | | | | | | | [phone] | | +--------+--------+ + + + + Encounter Details +--------+---------+ + + + | Date | Type | Department | Care Team | Description | +--------+---------+ + + + | 06/17/ | Office | [facility] [place] | Logan Soto, | Lumbar radiculopathy | | 2016 | Visit | PHYSIATRY [address] | [address] | (Primary Dx); Left | | | | [address] [place], | [place], [place] | leg pain; Left leg | | | | [place] [address] | [address] | weakness; Numbness | | | | [phone] | | of left foot; | | [...] MD - 06/17/2016 9:43 AM PDT [facility] PH[facility] [address] [facility] [address] OFFICE NOTE LOGAN SOTO JR, MD Patient: TRAYRACHEL Admitting: MR #: [id number] LOC: PT TYPE: Adm Date: 06/17/2016 : [...] Transcribed on 06/18/2016 10:20:46 by wendy russo# [id number] Confirmation #: [id number] cc: BRANDON JUAREZ MD Logan Soto MD - 06/17/2016 9:23 AM PDTThis office note has been dictated. Report Confirmation# [id number] signed by Logan Soto MD at 06/17/2016 [...] pattern. COMPARISON: MRI lumbar spine 06/26/2014 | [facility] | | and lumbar spine [...] [address] | [place] | [phone] | | [facility] | | [address] | | | - IMAGING | | [...] mL/min/1.73m2 | [facility] | | | [facility]UX[facility] | RATE,ESTIMATED | | MEDICAL | | | | mL/min/1.36i9Twvo than | | CENTER - | | [...] [address] | [place] | [phone] | | [facility] | | [address] | | | - LABORATORY | | [...]
--- OUTSIDE RECORDS SUMMARY | ~2019-09-09 | XMS | Encounter Summary ---
Demographics + + + | Address | [address] | | | [place] [address] | + + + | Home Phone [...] | Organization | [facility] [...] [place], [place] | | | | | [address] | | + + + + + | Mao Rea | ECON | Unknown | | + + + + + | Meredith Rea | ECON | Unknown | | + + + + + | Iqra Medina | ECON | [address] | | | | | [place], [place] | | | | | [address] | | + + + + + | Maldonado Rea | ECON | Unknown | | + + + + + Care Team Providers + +------+ + | Care Veterans Service Officer Name | Role | Phone | [...] | SR | | | | | [phone] | | | +--------+ + + + [...] [place] | | | | | | [address] | | | | | | | | +--------+---------+ + + + documented as of this encounter Visit Diagnoses Not on filedocumented in this encounter
--- OUTSIDE RECORDS SUMMARY | ~2019-09-09 | XMS | Encounter Summary ---
Demographics + + + | Address | [address] | | | [place] [address] | + + + | Home Phone [...] [facility] | | | and [...] [place], [place] | | | | | [address] | | + + + + + | Mao Rea | ECON | Unknown | | + + + + + | Meredith Rea | ECON | Unknown | | + + + + + | Iqra Medina | ECON | [address] | | | | | [place], [place] | | | | | [address] | | + + + + + | Maldonado Rea | ECON | Unknown | | + + + + + Care Team Providers + +------+ + | Care Pad Extraction Tender Name | Role | Phone | [...] | | | lordosis | | [address] | | | | | (acquired) | | [place], | | | | | Other | | [place] [address] | | | | | lordosis | | Phone: | | | | | (acquired) | | [phone] | | | | | Procedures | | Fax: | | | | | [place] | | [phone] | | | | | ARTHRODESIS | [...] + + | 12/02/ | Hospital | [facility] | Koby George MD | Acquired | | 2015 | Encounter | MED CTR XRAY [address] | [address] | spondylolisthesis | | | | [place] | [place] [address] | | | | | [place] [address] | [phone] | | | | | [phone] | | | +--------+ + + + [...] [place] | | | | | | [address] | | | | | | | [...] | | | [place] | | | [facility] | | | - IMAGING | + [...] [address] | [place] | [phone] | | [facility] | | [address] | | | - IMAGING | | | | + + + + + documented in this encounter Visit Diagnoses + + | Diagnosis | + + | Acquired spondylolisthesis | + + documented in this encounter"
--- OUTSIDE RECORDS SUMMARY | ~2019-09-09 | XMS | Encounter Summary ---
Demographics + + + | Address | [address] | | | [place] [address] | + + + | Home Phone [...] | Organization | [facility] | | | and [...] [place], [place] | | | | | [address] | | + + + + + | Mao Rea | ECON | Unknown | | + + + + + | Meredith Rea | ECON | Unknown | | + + + + + | Iqra Medina | ECON | [address] | | | | | [place], [place] | | | | | [address] | | + + + + + | Maldonado Rea | ECON | Unknown | | + + + + + Care Team Providers + +------+ + | Care Labor Relations Representative Name | Role | Phone | [...] | | [address] | [place] [address] | | | | | [place] | [phone] | | | | | [address] | | | | | | [phone] | | | +--------+ + + + [...] [place] | | | | | | [address] | | | | | | | | +--------+---------+ + + + documented as of this encounter Visit Diagnoses Not on filedocumented in this encounter"
--- OUTSIDE RECORDS SUMMARY | ~2019-09-09 | XMS | Encounter Summary ---
Demographics + + + | Address | [address] | | | [place] [address] | + + + | Home Phone [...] Organization | [facility] | | | [...] [place], [place] | | | | | [address] | | + + + + + | Mao Rea | ECON | Unknown | | + + + + + | Meredith Rea | ECON | Unknown | | + + + + + | Iqra Medina | ECON | [address] | | | | | [place], [place] | | | | | [address] | | + + + + + | Maldonado Rea | ECON | Unknown | | + + + + + Care Team Providers + +------+ + | Care Room Service Attendant Name | Role | Phone | [...] | Lumbar | Tino, | [address] | | | | | radiculopath | Luis Carlos Lerner MD | [place], | | | | | y | [address] | [place] | | | | | Procedures | [place] | [address] | | | | | [place] INJECT | [place] | Phone: | | | | | ANES/STEROID | [address] | [phone] | | | | | FORAMEN | Phone: | Fax: | | | | | LUMBAR/SACRA | [phone] | [phone] | | | | | [address] IMG | Fax: | | | | | | GUIDE ,1 | [phone] | | | | | | [place] | | | | | | | [...] + + | 08/09/ | Hospital | [facility] | Eric, | Lumbar radiculopathy | | 2017 | Encounter | MED CTR XRAY [address] | [address] | | | | | [place] | [place], | | | | | [place] [address] | [place] [address] | | | | | [phone] | [phone] | | | | | | | | | | | | Refrigeration [employer], [facility] | | +--------+ + + + [...] [place] | | | | | | [address] | | | | | | | [...] + + | Performing | Address | City/State/[facility] | Phone Number | | Organization | [...]
--- OUTSIDE RECORDS SUMMARY | ~2019-09-09 | XMS | Encounter Summary ---
Demographics + + + | Address | [address] | | | [place] [address] | + + + | Home Phone [...] Organization | [facility] | | | and [...] [place], [place] | | | | | [address] | | + + + + + | Mao Rea | ECON | Unknown | | + + + + + | Meredith Rea | ECON | Unknown | | + + + + + | Iqra Medina | ECON | [address] | | | | | [place], [place] | | | | | [address] | | + + + + + | Maldonado Rea | ECON | Unknown | | + + + + + Care Team Providers + +------+ + | Care Dump Attendant Name | Role | Phone | + +------+ + | Brandon Juarez MD | PCP | | + +------+ + Reason for Visit +---------+ + | Reason | Comments | +---------+ + | Post Op | post op physical therapy question | +---------+ + Encounter Details +--------+ + + + + | Date | Type | Department | Care Team | Description | +--------+ + + + + | 03/16/ | Telephone | [facility] | Koby George MD | Post Op (post op | | 2017 | | NEUROSURGERY [address] | [address] | physical therapy | | | | [address] | [place] [address] | question ) | | | | [place] | [phone] | | | | | [address] | | | | | | [phone] | | | +--------+ + + + [...] | | | | | | [place], [place] | | | | | | [address] | | | | | | | | +--------+---------+ + + + documented as of this encounter Visit Diagnoses Not on filedocumented in this encounter"
--- OUTSIDE RECORDS SUMMARY | ~2019-09-09 | XMS | Encounter Summary ---
Demographics + + + | Address | [address] | | | [place] [address] | + + + | Home Phone | | + + + | Preferred Language | Unknown | + + + | Marital Status | | + + + | Alevism Affiliation | Unknown | + + + | Race | Unknown | + + + | Ethnic Group | Unknown | + + + Author + + + | Author | [facility] | | | and Carlosana | + + + | Organization | [facility] | [...] [place], [place] | | | | | [address] | | + + + + + | Mao Rea | ECON | Unknown | | + + + + + | Meredith Rea | ECON | Unknown | | + + + + + | Iqra Medina | ECON | [address] | | | | | [place], [place] | | | | | [address] | | + + + + + | Maldonado Rea | ECON | Unknown | | + + + + + Care Team Providers + +------+ + | Care Cracking Machine Operator Name | Role | Phone [...] + + | 06/26/ | Telephone | [facility] | Logan Soto, | Results, Imaging | | 2013 | | PHYSIATRY [address] | MD [address] | | | | | [place], | [place], [place] | | | | | [place] [address] | [address] | | | | | [phone] | | | +--------+ + + + [...] [place] | | | | | | [address] | | | | | | | | +--------+---------+ + + + documented as of this encounter Visit Diagnoses Not on filedocumented in this encounter"
--- OUTSIDE RECORDS SUMMARY | ~2019-09-09 | XMS | Encounter Summary ---
Demographics + + + | Address | [address] | | | [place] [address] | + + + | Home Phone [...] | Author | [facility] | | | and [place]ana | + + + | Organization | [facility] | | [...] [place], [place] | | | | | [address] | | + + + + + | Mao Rea | ECON | Unknown | | + + + + + | Meredith Rea | ECON | Unknown | | + + + + + | Iqra Medina | ECON | [address] | | | | | [place], [place] | | | | | [address] | | + + + + + | Maldonado Rea | ECON | Unknown | | + + + + + Care Team Providers + +------+ + | Care Logging Superintendent Name | Role | Phone | + +------+ + | Brandon Juarez MD | PCP | | + +------+ + Reason for Visit +--------+ + | Reason | Comments | +--------+ + | Other | PRESURGICAL CHECK-IN INSTRUCTIONS | +--------+ + Encounter Details +--------+ + + + + | Date | Type | Department | Care Team | Description | +--------+ + + + + | 11/28/ | Telephone | [facility] | Koby George MD | Other (PRESURGICAL | | 2015 | | NEUROSURGERY [address] | [address] | CHECK-IN | | | | [address] | [place] [address] | INSTRUCTIONS) | | | | [place], [place] | [phone] | | | | | [address] | | | | | | [phone] | | | +--------+ + + + [...] [place] | | | | | | [address] | | | | | | | | +--------+---------+ + + + documented as of this encounter Visit Diagnoses Not on filedocumented in this encounter"
--- OUTSIDE RECORDS SUMMARY | ~2019-09-09 | XMS | Encounter Summary ---
Demographics + + + | Address | [address] | | | [place] [address] | + + + | Home Phone [...] Organization | [facility] | [...] [place], [place] | | | | | [address] | | + + + + + | Mao Rea | ECON | Unknown | | + + + + + | Meredith Rea | ECON | Unknown | | + + + + + | Iqra Medina | ECON | [address] | | | | | [place], [place] | | | | | [address] | | + + + + + | Maldonado Rea | ECON | Unknown | | + + + + + Care Team Providers + +------+ + | Care Physical Science Aide Name | Role | Phone | + [...] | | | | | | | NH ARTHDSIS | | | | | | [...] | | | | | | ION NH INSJ | | | | | | [...] | | | | | | SEG NH | | | | | | | ALLOGRAFT | | | | | | | FOR SPINE | | | | | | | SURGERY ONLY | | | | | | | MORSELIZED | | | | | | | NH REINSERT | | | | | | | SPINAL | | | | | | | FIXATION NH | | | | | | | REINSERT | | | | | | | SPINAL | | | | | | | FIXATION NH | | | | | | | REINSERT | | | | | | | SPINAL | | | | | | | FIXATION NH | | | | | | | INSJ | | | | | | | BIOMCHN DEV | | | | | | | INTERVERTEBR | | | | | | | AL DSC SPC | | | | | | | W/ARTHRD NH | | | | | | | INSJ | | | | | | | BIOMCHN DEV | | | | | | | INTERVERTEBR | | | | | | | AL DSC SPC | | | | | | | W/ARTHRD NH | | | | | | | | | | | | | | LAMINEC/FACE | | | | | | | TECT/FORAMIN | | | | | | | ,EACH ADDNL | | | | | | | NH | | | | | | | [...] + + | 02/23/ | Surgery | [facility] [facility] | Koby George MD | L5-S1 Transforaminal | | 2017 | | MED CTR OR INTRA OP | [address] | Lumbar Interbody | | | | [address] | [place] [address] | Fusion, Hardware | | | | [place] | [phone] | Revision @ L2-3, | | | | [id number] | | L3-4, L4-5 | | | | [phone] | | | +--------+---------+ + + + [...] might be differ ent from the original. [facility] NEUROSURGERY DISCHARGE SUMMARY Patient Name: Uziel Rea [...] capsule by mouth Daily. vitamin C with tom hips 500 MG tablet Take 500 mg by mouth Daily. ziprasidone 80 MG capsule Take 80 mg by mouth 2 times daily (with breakfast & dinner). aka: DAISY Discontinued Medications leflunomide 10 mg tablet aka: [...] Dose Taken; Ascorbic Acid (VITAMIN C WITH TOM HIPS) [...] month post op appointment before your appointment. [id number] [employer]. [address] [place] [address], [place] [address]. All righ ts reserved. This information is [...] as of this encounter Progress Notes Kel Ivory RN - 02/26/2017 2:21 PM PDTDischarge instructions reviewed with homero velarde and spouse, incision reviewed, MIGUEL A drain discontinued, forbes to stay in place until ap pointment with primary care provider, prescriptions previously filled by , all questions answered. Electronically signed by: Kel Doran RN 02/26/2017 14:25 Kel Ackerman RN - 02/26/2017 8:57 AM PDTPrescriptions given to , to fill at [facility], patient lives in [place], [place]. Electronically signed by: Kel Doran RN 02/26/2017 8:58 Ender Doherty PA-C - 02/25/2017 7:25 AM PDTFormatting of [...] Nightly Ender Mora PA-C 20 mg at 02/24/172 bisacodyl (DULCOLAX) suppository 10 mg 10 mg [...] mL/hr at 1820 100 mL at 02/23/17 182 lactulose liquid 30 mL 30 mL Oral [...] BID Ender Mora PA-C 8.6 mg at 2100 sulfaSALAzine (AZULFIDINE) tablet 1,500 mg 1,500 mg Oral BID Ender Mora PA-C 1,500 mg at 02/24/172100 tamsulosin (FLOMAX) capsule 0.4 mg 0.4 mg [...] Intake/Output Summary (Last 24 hours) at 02/25/17 0760 Last data filed at 02/25/17 0711 Gross [...] no apparent deficits with short or intermediate project manager memory. MOTOR EXAM: Motor strength is stable [...] BID Ender Mora PA-C 80 mg at 02/23/17 [...] has no apparent deficits with short or jail memory. MOTOR EXAM: Motor strength is stable [...] PA-C, 02/24/2017 7:26 documented in this encounter Plan of Treatment [...] by | | | | | | Yam:STAFFORD | | | RDWARE | | | [...] | | Jackso | | | n [place] | | | | | | FrameE [...] 50,000 | | Surgical | | Starting Tue02/23/17 at 0851, | | 17 8:51 | [...] | | | Site | | Starting 02/23/17 at 0852, | | PM PDT | | | | | Intra-op | | | | | | + +-------+ +--------+---+ + +---+---+ | | | +---+---+ documented in this encounter
--- OUTSIDE RECORDS SUMMARY | ~2019-09-09 | XMS | Encounter Summary ---
Demographics + + + | Address | [address] | | | [place] [address] | + + + | Home Phone [...] Organization | [facility] [...] [place], [place] | | | | | [address] | | + + + + + | Mao Rea | ECON | Unknown | | + + + + + | Meredith Rea | ECON | Unknown | | + + + + + | Iqra Medina | ECON | [address] | | | | | [place], [place] | | | | | [address] | | + + + + + | Maldonado Rea | ECON | Unknown | | + + + + + Care Team Providers + +------+ + | Care Goldbeater Name | Role | Phone | + +------+ + | Sherie Vela PA-C | PCP | | + +------+ + Reason for Visit + + + | Reason | Comments | + + + | Procedure | | + + + Encounter Details +--------+ + + + + | Date | Type | Department | Care Team | Description | +--------+ + + + + | 12/10/ | Telephone | [facility] | Koby George MD | Procedure | | 2017 | | NEUROSURGERY [address] | [address] | | | | | [address] | [place] [address] | | | | | [place] | [phone] | | | | | [address] | | | | | | [phone] | | | +--------+ + + + [...] [place] | | | | | | [phone] | | | | | | | | +--------+---------+ + + + documented as of this encounter Visit Diagnoses Not on filedocumented in this encounter"
--- OUTSIDE RECORDS SUMMARY | ~2019-09-09 | XMS | Encounter Summary ---
Demographics + + + | Address | [address] | | | [place] [address] | + + + | Home Phone | | + + + | Preferred Language | Unknown | + + + | Marital Status | | + + + | Baptist Affiliation | Unknown | + + + | Race | Unknown | + + + | Ethnic Group | Unknown | + + + Author + + + | Author | [facility] | | | and [place]ana | + + + | Organization | [facility] | | | and [...] [place], [place] | | | | | [address] | | + + + + + | Mao Rea | ECON | Unknown | | + + + + + | Meredith Rea | ECON | Unknown | | + + + + + | Iqra Medina | ECON | [address] | | | | | [place], [place] | | | | | [address] | | + + + + + | Maldonado Rea | ECON | Unknown | | + + + + + Care Team Providers + +------+ + | Care Tear Down Worker Name | Role | Phone | [...] | MED CTR EXTERNAL | MD [address] | | | | | IMAGING | [place] | | | | | [phone] | [place] [address] | | +--------+ + + + + [...] [place] | | | | | | [id number] | | | | | | | [...]
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
--- OUTSIDE RECORDS SUMMARY | ~2019-09-09 | XMS | Encounter Summary ---
Demographics + + + | Address | [address] | | | [place] [address] | + + + | Home Phone | | + + + | Preferred Language | Unknown | + + + | Marital Status | | + + + | Episcopalian Affiliation | Unknown | + + + | Race | Unknown | + + + | Ethnic Group | Unknown | + + + Author + + + | Author | [facility] | | | and [place] | + + + | Organization | [facility] | | | [...] [place], [place] | | | | | [address] | | + + + + + | Mao Rea | ECON | Unknown | | + + + + + | Meredith Rea | ECON | Unknown | | + + + + + | Iqra Medina | ECON | [address] | | | | | [place], [place] | | | | | [address] | | + + + + + | Maldonado Rea | ECON | Unknown | | + + + + + Care Team Providers + +------+ + | Care Network Control Supervisor Name | Role | Phone | [...] | PHYSIATRY [address] | [address] | low back pain with | | | | [place], | [place], [place] | left-sided sciatica | | | | [place] [address] | [address] | (Primary Dx); Lumbar | | | | [phone] | | radiculopathy; | | | | [...] tremor | | | | | | ([facility]) | +--------+---------+ + + + Social [...] Your injection will be performed a t [facility]. Please [...] of the procedure you must provide a reefer truck driver to take you home. For all procedur es it is recommended that someone else drive you home. documented in this encounter Progress Notes Logan Soto MD - 11/20/2018 11:30 AM PSTFormatting of this note might be different fro m the original. Logan Soto MD [address] [facility], [address] [place], [place] [address] FAX: PHYSICAL MEDICINE AND REHABILITATION H&P CHIEF [...] treatment with Dr. Ernesto hoffman Overall Uziel Rea reports that his symptoms were again improved [...] left L2-L3 transforaminal epidural steroid injection. Uziel Rea's most recent injection was completed 07/24/18, [...] ta bles on Tuesday, Tuesday, and Tuesday [place]-3 Fatty Acids (FISH OIL) 1200 MG CAPS [...] has no apparent deficits with short or [facility] memory. The cranial nerves appear grossly intact. [...] goodresponse to lumbar steroid injections completed in [facility]. He denies side effects to injection. We [...]
--- OUTSIDE RECORDS SUMMARY | ~2019-09-09 | XMS | Encounter Summary ---
Demographics + + + | Address | [address] | | | [place] [address] | + + + | Home Phone | | + + + | Preferred Language | Unknown | + + + | Marital Status | | + + + | Lutheran Affiliation | Unknown | + + + | Race | Unknown | + + + | Ethnic Group | Unknown | + + + Author + + + | Author | [facility] | | | and [place] | + + + | Organization | [facility] | | | and [place] [...] [place], [place] | | | | | [address] | | + + + + + | Mao Rea | ECON | Unknown | | + + + + + | Meredith Rea | ECON | Unknown | | + + + + + | Iqra Medina | ECON | [address] | | | | | [place], [place] | | | | | [address] | | + + + + + | Maldonado Rea | ECON | Unknown | | + + + + + Care Team Providers + +------+ + | Care Liquor Blender Name | Role | Phone | [...] | | [address] | [place] [address] | | | | | [place] | [phone] | | | | | [address] | | | | | | [phone] | | | +--------+ + + + [...] [place] | | | | | | [address] | | | | | | | [...] follow up. COMPARISON: Multiple priors. FINDINGS: | [facility] | | Again visualized are hardware for posterior fusion from L2 through the | [facility] | | SI joints with spacer [...] + | Performing | Address | City/State/[facility] | Phone Number | | Organization | | | | + + + + + | [address] | [address] | [place] | [phone] | | [facility] | | [address] | | | - IMAGING | | [...]
--- OUTSIDE RECORDS SUMMARY | ~2019-09-09 | XMS | Encounter Summary ---
Demographics + + + | Address | [address] | | | [place] [address] | + + + | Home Phone | | + + + | Preferred Language | Unknown | + + + | Marital Status | | + + + | Pentecostal Affiliation | Unknown | + + + | Race | Unknown | + + + | Ethnic Group | Unknown | + + + Author + + + | Author | [facility] | | | and [place] | + + + | Organization | [facility] | | | and [...] [place], [place] | | | | | [address] | | + + + + + | Mao Rea | ECON | Unknown | | + + + + + | Meredith Rea | ECON | Unknown | | + + + + + | Iqra Medina | ECON | [address] | | | | | [place], [place] | | | | | [address] | | + + + + + | Maldonado Rea | ECON | Unknown | | + + + + + Care Team Providers + +------+ + | Care Human Resources Talent Manager Name | Role | Phone | [...] | MED CTR EXTERNAL | MD [address] | | | | | IMAGING | [address] | | | | | [phone] | [place] [address] | | +--------+ + + + + [...] [place] | | | | | | [phone] | | | | | | | [...]
--- OUTSIDE RECORDS SUMMARY | ~2019-09-09 | XMS | Encounter Summary ---
Demographics + + + | Address | [address] | | | [place] [address] | + + + | Home Phone | | + + + | Preferred Language | Unknown | + + + | Marital Status | | + + + | Druze Affiliation | Unknown | + + + | Race | Unknown | + + + | Ethnic Group | Unknown | + + + Author + + + | Author | [facility] | | | and [place] | + + + | Organization | [facility] | | | and [place] [...] [place], [place] | | | | | [address] | | + + + + + | Mao Rea | ECON | Unknown | | + + + + + | Meredith Rea | ECON | Unknown | | + + + + + | Iqra Medina | ECON | [address] | | | | | [place], [place] | | | | | [address] | | + + + + + | Maldonado Rea | ECON | Unknown | | + + + + + Care Team Providers + +------+ + | Care Dye Machine Operator Name | Role | Phone [...] | | | fusion | VIRY Ramos [facility] | | | | | Lumbar | [address] | [address] | | | | | radiculopath | [address] | [address]VE | | | | | [address] | [address] | [place], [place] | | | | | stenosis of | [place], | [address] | | | | | lumbar | [place] [address] | Phone: | | | | | region | Phone: | [phone] | | | | | Spondylolist | [phone] | Fax: | | | | | hesis of | Fax: | [phone] | | | | | lumbar | [phone] | | | | | | region [...] + + | 10/19/ | Office | [facility] | Morgan Ender | S/P lumbar fusion | | 2016 | Visit | NEUROSURGERY [address] | [address] | (Primary Dx); Lumbar | | | | [address] | [address] | radiculopathy; | | | | [place], [place] | [place], [place] | 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 Ender Mora PA-C [address] [facility], [address] [place] [address] FAX: NEUROSURGERY FOLLOW-UP CHIEF COMPLAINT: Chief Complaint [...] [place] | | | | | | [phone] | | | | | | | [...]
--- OUTSIDE RECORDS SUMMARY | ~2019-09-09 | XMS | Encounter Summary ---
Demographics + + + | Address | [address] | | | [place] [address] | + + + | Home Phone [...] | [facility] | | | and Carlosana [...] [place], [place] | | | | | [address] | | + + + + + | Mao Rea | ECON | Unknown | | + + + + + | Meredith Rea | ECON | Unknown | | + + + + + | Iqra Medina | ECON | [address] | | | | | [place], [place] | | | | | [address] | | + + + + + | Maldonado Rea | ECON | Unknown | | + + + + + Care Team Providers + +------+ + | Care Manager Therapy Name | Role | Phone | + [...] Description | +--------+---------+ + + + | 02/28/ | Office | [facility] | Logan Soto, | Chronic left-sided | | 2018 | Visit | PHYSIATRY [address] | [address] | low back pain with | | | | [place], | [place], [place] | left-sided sciatica | | | | [place] [address] | [address] | (Primary Dx); | | | | [phone] | | History of lumbar | | | | | | fusion; Failed back | | | | | | surgical syndrome; | | | | | | Left leg weakness | +--------+---------+ + + + Social History [...] + + + | Blood Pressure | 129/77 | 02/28/2018 2:16 PM | | | | | PDT | | + + + + + | Pulse | 61 | 02/28/2018 2:16 PM | | | | | PDT | | + + + + + | Temperature | - | - | | + + + + + | Respiratory Rate | 20 | 02/28/2018 2:16 PM | | | | | PDT | | + + + + + | Oxygen Saturation | - | - | | + + + + + | Inhaled Oxygen | - | - | | | Concentration | | | | + + + + + | Weight | 102.1 kg (225 lb) | 02/28/2018 2:16 PM | | | | | PDT | | + + + + + | Height | 172.7 cm (5' 8") | 02/28/2018 2:16 PM | | | | | PDT | | + + + + + | Body Mass Index | 34.21 | 02/28/2018 2:16 PM | | | | | PDT [...] encounter Patient Instructions Patient Instructions Claudia Strickland, Theoretical Physicist - 02/28/2018 2:20 PM PDT Follow-up at the hospital thirty minutes [...] of the procedure you must provide a concrete truck driver to take you home. For all procedur es it is recommended that someone else drive you home. documented in this encounter Progress Notes Logan Soto MD - 02/28/2018 2:20 PM PDTFormatting of this note might be different fro m the original. Logan Soto MD [address] [facility], [address] [place], [place] [id number] FAX: PHYSICAL MEDICINE AND REHABILITATION H&P CHIEF COMPLAINT: Chief Complaint Patient presents with Back Pain HISTORY OF PRESENT ILLNESS: Uziel Rea is a 72 y.o. male being seen today in follow-up for complaints of low back pain. Uziel Rea was last seen on 12/06/17. Previously it was recommended that he have lumbar steroid injection with . Uziel Rea also reports that he had RFA with continued relief. Uziel Rea rates the pain as severe. Uziel Rea describes the pain as sharp. His symptoms worsen with nothing. His symptoms improve with nothing. Uziel Rea d oes describe numbness of the left anterior thigh. He does not report weakness of the bilat eral lower extremities. He does not have bowel and bladder dysfunction. He does not have saddle anesthesia. Prior injections have included left L2-L3 trans foraminal epidural steroid injection Compl eted 01/02/18, with Dr. Jiménez. Uziel Rea reports having 80% improvement directly f ollowing the injection. Uziel Rea reports that 2 weeks following the injection they e xperienced approximately 100% improvement to their pain. He reports that he had near 100% p ain relief for nearly 2 months. Today Uziel Rea reports that his symptoms continue to be 20% improved. He reports that his symptoms started to return about 1 week ago. Uziel Rea reports an increase of depression. He reports that there has been medicati on changes for the treatment of his depression. He reports and increase for tremor on the ri ght side. He has tried carbalevodopa with no improvement. Uziel Rea's medications, allergies, past medical, surgical, [...] NEUROLOGICALLY:The patient has no numbness/pain of arms, +numbness/pain of legs, no awake w ith numbness/pain, no weakness, no muscle aching, no coordination difficulty, no change in w alk, no head injury, no neck injury, no back injury, no pain in neck, + pain in back, no str lex, no fainting spells, no loss of consciousness, no tremor/shaking, no seizures, no headac hes, no migraine, no memory loss, no speech difficulty, no confusion and no numbness of face . PSYCHIATRIC: No depression, no sleep disorders, no anxiety, no bipolar disorder, no psycho tic episodes. CARDIOVASCULAR: No heart attacks, no heart [...] no rheumatoid arthritis. PHYSICAL EXAMINATION: Blood pressure 129/77, pulse 61, resp. rate 20, height 1.727 m (5' 8"), weight 102.1 kg (22 5 lb). Body mass index is 34.21 kg/m. GENERAL: The patient is well developed and well nourished. HEENT: Normocephalic and atraumatic. Normal sclerae without icterus. NECK (ANTERIOR): There is no apparent cervical lymphadenopathy or thyromegaly. PULMONARY: The patient is in no acute respiratory distress with unlabored respirations. CARDIOVASCULAR: Regular rate and rhythm. ABDOMEN: Distended. SKIN: Limited skin exam shows no significant rashes or lesions. NEUROLOGIC: The patient is awake, alert, and oriented. He follows simple and complex commands. His speech is fluent. He comprehends speech well. He has no apparent deficits with short or detention memory. The cranial nerves appear grossly intact. Sensory exam: MOTOR EXAM: (5 IS NORMAL) * Indicates pain limited MUSCLE/ MOVEMENT: RIGHT LEFT Hip Flexion 5 4 Hip Extension 5 5 Knee Flexion 5 4+ Knee Extension 5 5 Extensor Hallicus Longus 5 5 Ankle Dorsiflexion 4*give way 4*give way Plantarflexion 5 5 REFLEX: RIGHT LEFT BICEPS 2+ 2+ BRACHIORADIALIS 2+ 2+ TRICEPS 2+ 2+ PATELLAR 2+ 2+ ACHILLES absent absent MUSCULOSKELETAL : DATABASE: Lumbar x-rays from 02/14/2018 imaging was personally reviewed by me. I concur with finding s as reported by the radiologist. ASSESSMENT: 1. Chronic left-sided low back pain with left-sided sciatica 2. History of lumbar fusion 3. Failed back surgical syndrome 4. Left leg weakness PLAN: 1. Overall left L2-3 TFESI steroid injection provided diagnostic and therapeutic relief. I t continues to offer benefit at this time, but starting to diminish with time. Unfortunately injections can only be completed injections 3 times a year. We discussed that he should not have surgery until about 1 month after injection, ideally. May consider repeat injection on 04/04/18. With the hopes of relieving pain prior to possible back surgery with Dr.Yam Uziel Gresham juni Rea should have repeat Left L2-3 steroid injection. Pain is inhibiting function. Uziel Rea pain is contributing factor to his depression. Uziel Rea should continue follow up care with for surgical treatment options. 2. Uziel Rea should continue care with Yolie Huang for the treatment of depressio n. Medication changes may take about one month to take effect and may take about 3 months to receive full benefit from medication. 3. We discussed the importance of routine neurology care for treatment of neurologic condit ion. Deep brain stimulation was discussed today that may be completed at a tertiary center. He should follow up with attending neurology physician. I spent 30 minutes in visit with Uziel Rea today with the majority of time spent cou nseling the patient on his diagnosis, options for his care, and coordinating his care. I, Logan Soto MD personally performed the services described in this documentation, as scribed by in my presence, JADON Gallagher and are both accurate and complete. Logan Soto MD - 02/28/2018 documented in this en counter Plan of [...] [place] | | | | | | [address] | | | | | | | | +--------+---------+ + + + documented as of this encounter Visit Diagnoses + + | Diagnosis | + + | Chronic left-sided low back pain with left-sided sciatica - Primary | + + | History of lumbar fusion | + + | Failed back surgical syndrome Other unspecified back disorder | + + | Left leg weakness Other musculoskeletal symptoms referable to limbs | + + documented in this encounter
--- OUTSIDE RECORDS SUMMARY | ~2019-09-09 | XMS | Encounter Summary ---
Demographics + + + | Address | [address] | | | [place] [address] | + + + | Home Phone [...] + | Organization | [facility] | | | and [place]ana [...] [place], [place] | | | | | [address] | | + + + + + | Mao Rea | ECON | Unknown | | + + + + + | Meredith Rea | ECON | Unknown | | + + + + + | Iqra Medina | ECON | [address] | | | | | [place], [place] | | | | | [address] | | + + + + + | Maldonado Rea | ECON | Unknown | | + + + + + Care Team Providers + +------+ + | Care Soft Metals Engraver Hand Name | Role | Phone | + +------+ + | Brandon Juarez MD | PCP | | + +------+ + Encounter Details +--------+ + + + + | Date | Type | Department | Care Team | Description | +--------+ + + + + | 04/05/ | [facility] | [facility] | Ender Mora | S/P lumbar fusion | | 2017 | Encounter | MED CTR XRAY [address] | [address] | | | | | [place] | [address] | | | | | [place] [address] | [place], [place] | | | | | [phone] | [address] | | | | | [...] | Visit | | [address] | | | | | | [place] | | | | | | [address] | | | | | | | [...] ST. | [address] | [place], [place] | [phone] | | [facility] | | [address] | | | - IMAGING | | | | + + + + + documented in this encounter Visit Diagnoses + + | Diagnosis | + + | S/P lumbar fusion Arthrodesis status | + + documented in this encounter"
--- OUTSIDE RECORDS SUMMARY | ~2019-09-09 | XMS | Encounter Summary ---
Demographics + + + | Address | [address] | | | [place] [address] | + + + | Home Phone [...] Organization | [facility] | | | [...] [place], [place] | | | | | [address] | | + + + + + | Mao Rea | ECON | Unknown | | + + + + + | Meredith Rea | ECON | Unknown | | + + + + + | Iqra Medina | ECON | [address] | | | | | [place], [place] | | | | | [address] | | + + + + + | Maldonado Rea | ECON | Unknown | | + + + + + Care Team Providers + +------+ + | Care Right Of Way Worker Name | Role | Phone | [...] + | 01/09/ | Telephone | [facility] | Jarvis Dawson, | Appointment | | 2018 | | NE[facility] [place] | [address] | | | | | [address], | [place] [address] | | | | | [address] [place] | [place] [address] [place] | | | | | [place] [address] | [address] | | | | | [phone] | | | +--------+ + + + [...] [place] | | | | | | [address] | | | | | | | | +--------+---------+ + + + documented as of this encounter Visit Diagnoses Not on filedocumented in this encounter"
--- OUTSIDE RECORDS SUMMARY | ~2019-09-09 | XMS | Encounter Summary ---
Demographics + + + | Address | [address] | | | [place] [address] | + + + | Home Phone [...] + | Author | [facility] | | | and [place] | + + + | Organization | [facility] [...] [place], [place] | | | | | [address] | | + + + + + | Mao Rea | ECON | Unknown | | + + + + + | Meredith Rea | ECON | Unknown | | + + + + + | Iqra Medina | ECON | [address] | | | | | [place], [place] | | | | | [address] | | + + + + + | Maldonado Rea | ECON | Unknown | | + + + + + Care Team Providers + +------+ + | Care Staking Engineer Name | Role | Phone | [...] | +--------+ + + + + | 12/05/ | Telephone | [facility] | Koby George MD | Appointment | | 2015 | | NEUROSURGERY [address] | [address] | | | | | [address] | [place] [address] | | | | | [place] | [phone] | | | | | [address] | | | | | | [phone] | | | +--------+ + + + [...] [place] | | | | | | [address] | | | | | | | | +--------+---------+ + + + documented as of this encounter Visit Diagnoses Not on filedocumented in this encounter"
--- OUTSIDE RECORDS SUMMARY | ~2019-09-09 | XMS | Encounter Summary ---
Demographics + + + | Address | [address] | | | [place] [address] | + + + | Home Phone [...] Organization | [facility] | | | and [...] [place], [place] | | | | | [address] | | + + + + + | Mao Rea | ECON | Unknown | | + + + + + | Meredith Rea | ECON | Unknown | | + + + + + | Iqra Medina | ECON | [address] | | | | | [place], [place] | | | | | [address] | | + + + + + | Maldonado Rea | ECON | Unknown | | + + + + + Care Team Providers + +------+ + | Care Environmental Science Program Director Name | Role | Phone | [...] | PHYSIATRY [address] | [address] | low back pain with | | | | [place], | [place], [place] | left-sided sciatica | | | | [place] [address] | [address] | (Primary Dx); | | | | [phone] | | History of lumbar | | [...] encounter Patient Instructions Patient Instructions Claudia Strickland, Quality Review Specialist - 02/28/2018 2:20 PM PDT Follow-up at [...] of the procedure you must provide a front end driver to take you home. For all procedur es it is recommended that someone else drive you home. documented in this encounter Progress Notes Logan Soto MD - 02/28/2018 2:20 PM PDTFormatting of this note might be different fro m the original. Logan Soto MD [address] [facility], [address] [place], [place] [id number] FAX: PHYSICAL MEDICINE AND REHABILITATION H&P CHIEF [...] that he had RFA with continued relief. Uzile Rea rates the pain as severe. Uziel [...] has no apparent deficits with short or fdc memory. The cranial nerves appear grossly intact. [...] [place] | | | | | | [address] | | | | | | | [...]
--- OUTSIDE RECORDS SUMMARY | ~2019-09-09 | XMS | Encounter Summary ---
Demographics + + + | Address | [address] | | | [place] [address] | + + + | Home Phone [...] | Organization | [facility] [...] [place], [place] | | | | | [address] | | + + + + + | Mao Rea | ECON | Unknown | | + + + + + | Meredith Rea | ECON | Unknown | | + + + + + | Iqra Medina | ECON | [address] | | | | | [place], [place] | | | | | [address] | | + + + + + | Maldonado Rea | ECON | Unknown | | + + + + + Care Team Providers + +------+ + | Care Advice Line Rn Name | Role | Phone | [...] Pain Medicine | Diagnoses | Morgan, | Alejandro | | | Services | | S/P lumbar | Ender | MD Devonte | | | Required | | fusion | [address] | [address] | | | | | Spondylolist | [address] | [address] | | | | | hesis of | [address] | B | | | | | lumbar | [address] | [place] | | | | | region | [place], | [address] | | | | | Pseudoarthro | [place] [address] | Phone: | | | | | sis of | Phone: | [phone] | | | | | lumbar spine | [phone] | Fax: | | | | | Lumbar | Fax: | [phone] | | | | | radiculopath | [phone] | | | | | | y [...] | | | | | | | 01/15 HIM | | | | | | | 37 | | | +--------+ + + + + + Reason for Visit + + + | Reason | Comments | + + + | Follow-up | Review progress | + + + Encounter Details +--------+---------+ + + + | Date | Type | Department | Care Team | Description | +--------+---------+ + + + | 01/02/ | Office | [facility] | Ender Mora | S/P lumbar fusion | | 2019 | Visit | NEUROSURGERY [address] | [address] | (Primary Dx); | | | | [address] | [address] | Spondylolisthesis of | | | | [place], [place] | [place] | lumbar region; | | | | [address] | [address] | 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 Ender Mora PA-C [address] [facility], [address] [place], [place] [id number] FAX: NEUROSURGERY FOLLOW-UP CHIEF COMPLAINT: Chief Complaint [...] would also like referral to a pain pa dicine Center. He asks if he should participate [...] L 4-5; Surgeon: Koby George MD; Location: [facility] MAIN OR LUMBAR SPINE SURGERY 12/02/2014 L2-3, L3-4, L4-5 LAIF, L2-3, L3-4, L4-5 Posterior Instrumentation, L2-3 Decompression; La terality: N/A; Surgeon: Koby George MD; Location: [facility] MAIN OR PROSTATE SURGERY 2003 prostate [...] 1,000 mg by mouth 2 times daily. Beebe-3 Fatty Acids (FISH OIL) 1200 MG CAPS [...] has no apparent deficits with short or skilled nursing memory. CRANIAL NERVES: II: Acuity is intact. [...] [place] | | | | | | [address] | | | | | | | [...]
--- OUTSIDE RECORDS SUMMARY | ~2019-09-09 | XMS | Encounter Summary ---
Demographics + + + | Address | [address] | | | [place] [address] | + + + | Home Phone | | + + + | Preferred Language | Unknown | + + + | Marital Status | | + + + | Faith Affiliation | Unknown | + + + | Race | Unknown | + + + | Ethnic Group | Unknown | + + + Author + + + | Author | [facility] | | | and [place] | + + + | Organization | [facility] | | | and [...] [place], [place] | | | | | [address] | | + + + + + | Mao Rea | ECON | Unknown | | + + + + + | Meredith Rea | ECON | Unknown | | + + + + + | Iqra Medina | ECON | [address] | | | | | [place], [place] | | | | | [address] | | + + + + + | Maldonado Rea | ECON | Unknown | | + + + + + Care Team Providers + +------+ + | Care Director Payment Name | Role | Phone | + [...] | | | | [place] | [place] | | | | | | [address] | [address] Phone: | | | | | | Phone: | [phone] | | | | | | [phone] | Fax: | | | | | | Fax: | [phone] | | | | | | [phone] | | +--------+ + + + + + Reason for Visit + + + | Reason | Comments | + + + | Appointment Question | | + + + Encounter Details +--------+ + + + + | Date | Type | Department | Care Team | Description | +--------+ + + + + | 08/21/ | Telephone | [facility] | Jarvis Dawson, | Appointment Question | | 2018 | | NEUR[facility] [place] | [address] [facility] | | | | | [address] [facility], | [place] [address] | | | | | [address] [place] | [place] | | | | | [place] [address] | [address] | | | | | [phone] | | | +--------+ + + + [...] [place] | | | | | | [address] | | | | | | | | +--------+---------+ + + + + + +--------+ + + | Name | Type | Priori | Associated Diagnoses | Order Schedule | | | | ty | | | + + +--------+ + + | * [facility] | Outpatient | Routin | Obstructive sleep | Ordered: 08/22/2018 | | Neurology/Sleep | Referral | e | apnea of adult | | | [facility] | | | | | | Transfer | | | | | + + +--------+ + + documented as of this encounter Visit Diagnoses + + | Diagnosis | + + | Obstructive sleep apnea of adult - Primary Obstructive sleep apnea (adult) | | (pediatric) | + + documented in this encounter"
--- OUTSIDE RECORDS SUMMARY | ~2019-09-09 | XMS | Encounter Summary ---
Demographics + + + | Address | [address] | | | [place] [address] | + + + | Home Phone [...] Organization | [facility] | | | and [place]ana [...] [place], [place] | | | | | [address] | | + + + + + | Mao Rea | ECON | Unknown | | + + + + + | Meredith Rea | ECON | Unknown | | + + + + + | Iqra Medina | ECON | [address] | | | | | [place], [place] | | | | | [address] | | + + + + + | Maldonado Rea | ECON | Unknown | | + + + + + Care Team Providers + +------+ + | Care Detacher Name | Role | Phone | + [...] | MED CTR EXTERNAL | MD Hermin[address] | | | | | IMAGING | [place] | | | | | [phone] | [place] [address] | | +--------+ + + + + [...] [place] | | | | | | [address] | | | | | | | [...]
--- OUTSIDE RECORDS SUMMARY | ~2019-09-09 | XMS | Encounter Summary ---
Demographics + + + | Address | [address] | | | [place] [address] | + + + | Home Phone | | + + + | Preferred Language | Unknown | + + + | Marital Status | | + + + | Evangelical Affiliation | Unknown | + + + | Race | Unknown | + + + | Ethnic Group | Unknown | + + + Author + + + | Author | [facility] | | | and [place] | + + + | Organization | [facility] | [...] [place], [place] | | | | | [address] | | + + + + + | Mao Rea | ECON | Unknown | | + + + + + | Meredith Rea | ECON | Unknown | | + + + + + | Iqra Medina | ECON | [address] | | | | | [place], [place] | | | | | [address] | | + + + + + | Maldonaod Rea | ECON | Unknown | | + + + + + Care Team Providers + +------+ + | Care Head Librarian Name | Role | Phone | + +------+ + | Brandon Juaerz MD | PCP | | + +------+ + Reason for Visit + + + | Reason | Comments | + + + | Results, Imaging | | + + + Encounter Details +--------+ + + + + | Date | Type | Department | Care Team | Description | +--------+ + + + + | 06/26/ | Telephone | [facility] | Logan Soto, | Results, Imaging | | 2013 | | PHYSIATRY [address] | MD [address] | | | | | [place], | [place], [place] | | | | | [place] [address] | [address] | | | | | [phone] | | | +--------+ + + + [...] | Visit | | [address] | | | | | | [place] | | | | | | [address] | | | | | | | | +--------+---------+ + + + documented as of this encounter Visit Diagnoses Not on filedocumented in this encounter"
--- OUTSIDE RECORDS SUMMARY | ~2019-09-09 | XMS | Encounter Summary ---
Demographics + + + | Address | [address] | | | [place] [address] | + + + | Home Phone [...] | Organization | [facility] | | | and Carlosana [...] [place], [place] | | | | | [address] | | + + + + + | Mao Rea | ECON | Unknown | | + + + + + | Meredith Rea | ECON | Unknown | | + + + + + | Iqra Medina | ECON | [address] | | | | | [place], [place] | | | | | [address] | | + + + + + | Maldonado Rea | ECON | Unknown | | + + + + + Care Team Providers + +------+ + | Care Sql Consultant Name | Role | Phone | + [...] | Specialty | Neurosurgery | Diagnoses | Akshat Soto David | | | Services | | Lumbar | Logan Rios MD | MD [place] [address] | | | Required | | spinal | [address] | | | | | stenosis | [address] | [place], [place] | | | | | Lumbalgia | [place], | [address] | | | | | Lumbar | [place] [address] | Phone: | | | | | degenerative | Phone: | [phone] | | | | | disc | [phone] | Fax: | | | | | disease | Fax: | [phone] | | | | | Lumbar facet | [phone] | | | | | | arthropathy | | | | | | | Procedures | | | | | | | GA OFFICE | | | | | | | CONSULTATION | | | | | | | NEW/ESTAB | | | | | | | PATIENT 60 | | | | | | | MIN | | | +--------+ + + + + + Diagnostic/Screening (Routine) +--------+--------+ + + + + | Status | Reason | Specialty | Diagnoses / | Referred By | Referred To | | | | | Procedures | Contact | Contact | +--------+--------+ + + + + | Closed | | Radiology | Diagnoses | Soto, | | | | | | Lumbar | Logan Rios MD | | | | | | spinal | [address] | | | | | | stenosis | [address] | | | | | | Lumbalgia | [place], | | | | | | Lumbar | [place] [address] | | | | | | degenerative | Phone: | | | | | | disc | [phone] | | | | | | disease | Fax: | | | | | | Procedures | [phone] | | | | | | CT Lumbar | | | | | | | Spine wo | | | | | | | Contrast | | | +--------+--------+ + + + + Reason for Visit + + + | Reason | Comments | + + + | Back Pain | | + + + | Extremity Weakness | left leg | + + + Encounter Details +--------+---------+ + + + | Date | Type | Department | Care Team | Description | +--------+---------+ + + + | 06/28/ | Office | [facility] | Logan Soto, | Lumbar spinal | | 2013 | Visit | PHYSIATRY [address] | MD [address] | stenosis (Primary | | | | [place], | [place], [place] | Dx); Lumbalgia; | | | | [place] [address] | [address] | Lumbar degenerative | | | | [phone] | | disc disease; Lumbar | | | | | | facet arthropathy; | | | | | | Rheumatoid arthritis | | | | | | ([facility]IN [facility]); Marijuana | | | | | | [...] + + + | Blood Pressure | 134/78 | 06/28/2014 9:07 AM | | | | | PDT | | + + + + + | Pulse | 84 | 06/28/2014 9:07 AM | | | | | PDT | | + + + + + | Temperature | - | - | | + + + + + | Respiratory Rate | 18 | 06/28/2014 9:07 AM | | | | | PDT | | + + + + + | Oxygen Saturation | - | - | | + + + + + | Inhaled Oxygen | - | - | | | Concentration | | | | + + + + + | Weight | - | - | | + + + + + | Height | 175.3 cm (5' 9") | 06/28/2014 9:07 AM | | | | | PDT | | + + + + + | Body Mass Index | - | - | | + + + + + documented in this encounter Patient Instructions Patient Instructions Logan Soto MD - 06/28/2014 10:[address] scan has been reques david. Please complete the requested imaging. Within one week, you should receive a call to schedule your CT. If you have not heard from anyone within one week, please call the clinic . The results of your CT scan will be reviewed at your next appointment. If your CT scan d emonstrates any emergent results, the clinic will contact you. A neurosurgery consult has been requested with Dr. George. Please see Dr. George after you have completed your CT. documented in this encounter Progress Notes Logan Soto MD - 06/28/2014 10:10 AM PDTThis office note has been dictated. Job ID# [id number] signed by Logan Soto MD at 06/28/2014 1:52 PM Citlalli Pendleton RN - 06/28/2014 9:08 AM PDTC/o lower back and left leg pain, rated 7-8/10. Here to review M RI and x-rays. Linda Betts MD - 06/28/2014 12:00 AM PDT [facility] [address] [place] [address] FAX: [phone] OFFICE VISIT PHYSICAL MEDICINE REHABILITATION PROGRESS NOTE PATIENT IDENTIFICATION: A 69-year-old male with midback pain, low back pain, presentation o f L3 radiculopathy. HISTORY OF PRESENT ILLNESS: Mr. Rea was last seen by me 06/17/2014. At that time it was noted that he had back pain, significant lower extremity weakness and numbness, history of rheumatoid arthritis. Advanced imaging of his spine was requested, given his significant lo wer extremity weakness. This imaging was completed 2 days ago, 06/26/2014. Today we reviewe d this imaging. Lumbar MRI 06/26/2014, imaging personally reviewed by me and reviewed in detail with Mr. Marisol murphy. This imaging demonstrates severe central canal stenosis at L2-3 as a result of mass effect on the cauda equina nerve root fibers, and significant neural foraminal narrowing, s evere on the right, moderate on the left at this level. This is from degenerative disk disea se at L2-L3. The disk at this level appears to be obliterated. There may or may not be some autofusion between L2-L3 occurring at this time. Mr. Rea indicates that his pain is unchanged. Pain is still tolerable. Pain is currently a 7/10 on a numerical pain scale. Pain constant in timing. Pain starts in the back, radiat es into the legs, continues to have feelings of weakness and numbness in lower extremities. Denies incontinence of bowel or bladder. Denies saddle anesthesia, denies any significant increase in weakness in the lower extremities. ALLERGIES: NO KNOWN DRUG ALLERGIES. CURRENT MEDICATIONS 1. Fosamax 70 mg once weekly. 2. Vitamin C. 3. Vitamin D. 4. Folic acid. 5. Diclofenac. 6. Fish oil. 7. Flunisolide. 8. Gabapentin 400 mg, 2 capsules 3 times per day. 9. Glucosamine chondroitin. 10. Plaquenil. 11. Remicade. 12. Arava 10 mg daily. 13. Lisinopril. 14. [place]. 15. Loratadine. 16. Cannabis inhaled daily. 17. Methotrexate. 18. Remeron. 19. Multivitamin with minerals. 20. Relafen. 21. Zyprexa. 22. Benicar. 23. Zoloft. 24. Zocor. 25. Geodon. 26. Actemra. REVIEW OF SYSTEMS: Mr. Rea denies fever, chills, shortness of breath, chest pain, skin breakdown, rash, incontinence of bowel or bladder, saddle anesthesia, lymph gland swelling. All other review of systems negative. PHYSICAL EXAMINATION VITAL SIGNS: Heart rate 84, respiratory rate 18, blood pressure 134/78, height 5 feet 9 inc hes. GENERAL: No acute distress. Alert and oriented to person, place, time and situation. HEENT: Pupils equally reactive to light and accommodation. LUNGS: Clear to auscultation. No wheezing. No crackles. BACK: Increased thoracic kyphosis curvature. Lumbar facet loading test positive. Tenderness to palpation over facet joints. Seated straight leg raise positive on the left, negative o n the right. EXTREMITIES: Reveal no clubbing, cyanosis or edema in all 4 extremities. There is hair loss on the legs bilaterally. Fasciculations noted in left gastroc once again. NEUROLOGIC: Exa m demonstrates significant weakness in lower extremities, unchanged from prior examination. IMPRESSION 1. LUMBAR SPINAL STENOSIS, ICD-9 724.02. 2. LUMBALGIA, ICD-9 724.2. 3. LUMBAR DEGENERATIVE DISK DISEASE, ICD-9 722.52. 4. LUMBAR FACET ARTHRITIS, ICD-9 721.3. 5. RHEUMATOID ARTHRITIS, ICD-9 714.0. 6. MARIJUANA SMOKER, ICD-9 305.20. PLAN: Mr. Rea has significant spinal stenosis and pathology within his lumbar spine. Fo rtunately, he has not yet developed cauda equina syndrome, but does have significant lower extremity weakness and numbness. At this time it is anticipated that he should be seen by N eurosurgery. His imaging was briefly reviewed with the neurosurgeon today. He will have dequan rosurgical consult with Koby George MD. In preparation for this neurosurgical consult a lumb ar CT was recommended and requested. A CT will evaluate for whether or not there is autofus ion between L2-L3 which would then change the surgical approach. Lumbar CT will be part of surgical planning. It is anticipated that the patient will likely benefit from surgical int ervention. We discussed that given the significant spinal stenosis and pathology in his spi ne that any other treatment such as epidural steroid injection would likely have limited and short-term benefit. Approximately 30 minutes was spent [id number] today with Mr. Rea, over half of which w as spent formulating and discussing his medical treatment plan. Thank you for allowing me t o be involved in the care of your patient. If you have any questions regarding the care of Mr. Rea please do not hesitate to call. Logan Soto Jr, MD BARAK / CHARLEE JOB #: [id number] cc: Brandon Juarez MD A M PDTdocumented [...] [place] | | | | | | [id number] | | | | | | | | +--------+---------+ + + + + +---------+--------+ + + | Name | Type | Priori | Associated Diagnoses | Order Schedule | | | | ty | | | + +---------+--------+ + + | CT Lumbar Spine wo | Imaging | Routin | Lumbar spinal | Expected: | | Contrast | | e | stenosis Lumbalgia | 06/28/2014, Expires: | | | | | Lumbar degenerative | 06/28/2015 | | | | | disc disease | | + +---------+--------+ + + + + +--------+ + + | Name | Type | Priori | Associated Diagnoses | Order Schedule | | | | ty | | | + + +--------+ + + | * [facility] [place] | Outpatient | Routin | Lumbar spinal | Ordered: 06/28/2014 | | Neurosurgery - AMB | Referral | e | stenosis Lumbalgia | | | Referral | | | Lumbar degenerative | | | | | | disc disease | | | | | | Lumbar facet | | | | | | arthropathy | | + + +--------+ + + documented as of this encounter Visit Diagnoses + + | Diagnosis | + + | Lumbar spinal stenosis - Primary Spinal stenosis, lumbar region, without neurogenic | | claudication | + + | Lumbalgia Lumbago | + + | Lumbar degenerative disc disease Degeneration of lumbar or lumbosacral intervertebral | | disc | + + | Lumbar facet arthropathy Lumbosacral spondylosis without myelopathy | + + | Rheumatoid arthritis (HCC) | + + | Marijuana smoker Cannabis abuse, unspecified | + + documented in this encounter
--- OUTSIDE RECORDS SUMMARY | ~2019-09-09 | XMS | Encounter Summary ---
Demographics + + + | Address | [address] | | | [place] [address] | + + + | Home Phone [...] + + + | Organization | [facility] | | [...] [place], [place] | | | | | [address] | | + + + + + | Mao Rea | ECON | Unknown | | + + + + + | Meredith Rea | ECON | Unknown | | + + + + + | Iqra Medina | ECON | [address] | | | | | [place], [place] | | | | | [address] | | + + + + + | Maldonado Rea | ECON | Unknown | | + + + + + Care Team Providers + +------+ + | Care Hi Ranger Operator Name | Role | Phone | + +------+ + | Shreie Vela PA-C | PCP | | + [...] [address] | | | | | [place], [place] | [place], [place] | | | | | [address] | [address] | | | | | [phone] | | | +--------+ + + + [...] | 12/07/ | Office | Neurology | Abundoi Khanna MD | | | 2020 | Visit | | [address] | | | | | | [place] | | | | | | [address] | | | | | | | | +--------+---------+ + + + documented as of this encounter Visit Diagnoses Not on filedocumented in this encounter"
--- OUTSIDE RECORDS SUMMARY | ~2019-09-09 | XMS | Encounter Summary ---
Demographics + + + | Address | [address] | | | [place] [address] | + + + | Home Phone | | + + + | Preferred Language | Unknown | + + + | Marital Status | | + + + | Buddhism Affiliation | Unknown | + + + | Race | Unknown | + + + | Ethnic Group | Unknown | + + + Author + + + | Author | [facility] | | | and Carlosana | + + + | Organization | [facility] | [...] [place], [place] | | | | | [address] | | + + + + + | Mao Rea | ECON | Unknown | | + + + + + | Meredith Rea | ECON | Unknown | | + + + + + | Iqra Medina | ECON | [address] | | | | | [place], [place] | | | | | [address] | | + + + + + | Maldonado Rea | ECON | Unknown | | + + + + + Care Team Providers + +------+ + | Care Indirect Sales Exec Name | Role | Phone | + [...] | Lumbar | [place], | [address] | | | | | radiculopath | Luis Carlos Lerner MD | [place], | | | | | y | [address] | [place] | | | | | Procedures | [place] | [address] | | | | | [place] INJECT | [place] | Phone: | | | | | ANES/STEROID | [address] | [phone] | | | | | [place] | Phone: | Fax: | | | | | LUMBAR/SACRA | [phone] | [phone] | | | | | [address] | Fax: | | | | | | GUIDE ,1 | [phone] | | | | | | [place] | | | | | | | [...] + + | 07/12/ | Hospital | [facility] | Luis Carlos Jiménez | Lumbar radiculopathy | | 2016 | Encounter | MED CTR XRAY [address] | T, [address] | | | | | [place] | [place], [place] | | | | | [place] [address] | [id number] | | | | | [phone] | | | | | | | Promotions Executive Producer, [facility] | | +--------+ + + + [...] [place] | | | | | | [address] | | | | | | | [...] radiculopathy ICD-10 Code M54.16 Uziel Rea | [facility] | | presents to the fluoroscopy suite for a fluoroscopically-guided [facility] | | L5-S1 transforaminal epidural steroid injection [...] + + | Performing | Address | City/State/[facility] | Phone Number | | Organization | | | | + + + + + | [address] | [address] | [place] | [phone] | | [facility] | | [address] | | | - IMAGING | | [...]
--- OUTSIDE RECORDS SUMMARY | ~2019-09-09 | XMS | Encounter Summary ---
Demographics + + + | Address | [address] | | | [place] [address] | + + + | Home Phone | | + + + | Preferred Language | Unknown | + + + | Marital Status | | + + + | Scientology Affiliation | Unknown | + + + | Race | Unknown | + + + | Ethnic Group | Unknown | + + + Author + + + | Author | [facility] | | | and [place] | + + + | Organization | [facility] | | | and [place]ana [...] [place], [place] | | | | | [address] | | + + + + + | Mao Rea | ECON | Unknown | | + + + + + | Meredith Rea | ECON | Unknown | | + + + + + | Iqra Medina | ECON | [address] | | | | | [place], [place] | | | | | [address] | | + + + + + | Maldonado Rea | ECON | Unknown | | + + + + + Care Team Providers + +------+ + | Care Medical Malpractice Paralegal Name | Role | Phone | [...] | PHYSIATRY [address] | [address] | | | | | [place], | [place] | | | | | [place] [address] | [address] | | | | | [phone] | | | +--------+ + + + [...] [place] | | | | | | [address] | | | | | | | | +--------+---------+ + + + documented as of this encounter Visit Diagnoses Not on filedocumented in this encounter"
--- OUTSIDE RECORDS SUMMARY | ~2019-09-09 | XMS | Encounter Summary ---
Demographics + + + | Address | [address] | | | [place] [address] | + + + | Home Phone [...] | + + + | Organization | [facility] | | [...] [place], [place] | | | | | [address] | | + + + + + | Mao Rea | ECON | Unknown | | + + + + + | Meredith Rea | ECON | Unknown | | + + + + + | Iqra Medina | ECON | [address] | | | | | [place], [place] | | | | | [address] | | + + + + + | Maldonado Rea | ECON | Unknown | | + + + + + Care Team Providers + +------+ + | Care Nurse Ldr Name | Role | Phone | + [...] | (Primary Dx); | | | | [place], | [address] [place] | Sacroiliitis, not | | | | [place] [address] | [address] | elsewhere classified | | | | [phone] | | (HCC) | +--------+ + + [...] [place] | | | | | | [address] | | | | | | | | +--------+---------+ + + + documented as of this encounter Results [place] Sacroiliac Injection Right (06/01/2017 1:12 PM PDT) + + | Specimen | + + | | + + + + + | Narrative | Performed At | + + + | | [facility] | | 06/01/2017Bilateral Sacroiliac Joint InjectionClinical History: | [facility] | | Sacroiliitis ICD-10 M46.1 Uziel Rea presents to the fluoroscopy [facility] | | suite for fluoroscopically guided bilateral [...] [address] | [place] | [phone] | | [facility] | | [address] | | | - IMAGING | | | | + + + + + [place] Sacroiliac Injection Left (06/01/2017 1:12 PM PDT) + + | Specimen | + + | | + + + + + | Narrative | Performed At | + + + | | [facility] | | 06/01/2017Bilateral Sacroiliac Joint InjectionClinical History: | [facility] | | Sacroiliitis ICD-10 M46.1 Uziel Rea presents to the fluoroscopy [facility] | | suite for fluoroscopically guided bilateral [...] ST. | [address] | [place], [place] | [phone] | | [facility] | | [address] | | | - IMAGING | | | | + + + + + documented in this encounter Visit Diagnoses + + | Diagnosis | + + | S/P lumbar fusion - Primary Arthrodesis status | + + | Sacroiliitis, not elsewhere classified (HCC) Sacroiliitis, not elsewhere classified | + + documented in this encounter"
--- OUTSIDE RECORDS SUMMARY | ~2019-09-09 | XMS | Encounter Summary ---
Demographics + + + | Address | [address] | | | [place] [address] | + + + | Home Phone | | + + + | Preferred Language | Unknown | + + + | Marital Status | | + + + | Synagogue Affiliation | Unknown | + + + | Race | Unknown | + + + | Ethnic Group | Unknown | + + + Author + + + | Author | [facility] | | | and [place] | + + + | Organization | [facility] | | | and [...] [place], [place] | | | | | [address] | | + + + + + | Mao Rea | ECON | Unknown | | + + + + + | Meredith Rea | ECON | Unknown | | + + + + + | Iqra Medina | ECON | [address] | | | | | [place], [place] | | | | | [address] | | + + + + + | Maldonado Rea | ECON | Unknown | | + + + + + Care Team Providers + +------+ + | Care Sofa Inspector Name | Role | Phone | [...] | Lumbar | [place], | [address] | | | | | radiculopath | Luis Carlos Lerner MD | [place], | | | | | y | [address] | [place] | | | | | Procedures | [place] | [address] | | | | | CT INJECT | [place] | Phone: | | | | | ANES/STEROID | [address] | [phone] | | | | | [place] | Phone: | Fax: | | | | | LUMBAR/SACRA | [phone] | [phone] | | | | | L W IMG | Fax: | | | | | | GUIDE ,1 | [phone] | | | | | | LEVEL CT | | | | | | | [...] + + | 01/02/ | Hospital | [facility] | Luis Carlos Jiménez | Lumbar radiculopathy | | 2018 | Encounter | MED CTR XRAY [address] | T, [address] | | | | | [place] | ST [place], [place] | | | | | [place] [address] | [id number] | | | | | [phone] | | | | | | | [employer], [facility] | | +--------+ + + [...] [place] | | | | | | [address] | | | | | | | [...]
--- OUTSIDE RECORDS SUMMARY | ~2019-09-09 | XMS | Encounter Summary ---
Demographics + + + | Address | [address] | | | [place] [address] | + + + | Home Phone | | + + + | Preferred Language | Unknown | + + + | Marital Status | | + + + | Orthodox Affiliation | Unknown | + + + | Race | Unknown | + + + | Ethnic Group | Unknown | + + + Author + + + | Author | [facility] | | | and [place] | + + + | Organization | [facility] | | | and [...] [place], [place] | | | | | [address] | | + + + + + | Mao Rea | ECON | Unknown | | + + + + + | Meredith Rea | ECON | Unknown | | + + + + + | Iqra Medina | ECON | [address] | | | | | [place], [place] | | | | | [address] | | + + + + + | Maldonado Rea | ECON | Unknown | | + + + + + Care Team Providers + +------+ + | Care Linux Solaris Administrator Name | Role | Phone | + [...] | MED CTR EXTERNAL | MD [address] | | | | | IMAGING | [place] | | | | | [phone] | [place] [address] | | +--------+ + + + + [...] [place] | | | | | | [id number] | | | | | | | [...]
--- OUTSIDE RECORDS SUMMARY | ~2019-09-09 | XMS | Encounter Summary ---
Demographics + + + | Address | [address] | | | [place] [address] | + + + | Home Phone [...] + + | Author | [facility] | | | and [place] | + + + | Organization | [facility] | | | and [place] | + + + | Address | Unknown | + + + | Phone | Unavailable | + + + Support + + + + + | Name | Relationship | Address | Phone | + + + + + | Henny Rea | ECON | [address] | | | | | [place], [place] | | | | | [address] | | + + + + + | Mao Rea | ECON | Unknown | | + + + + + | Meredith Rea | ECON | Unknown | | + + + + + | Iqra Medina | ECON | [address] | | | | | [place], [place] | | | | | [address] | | + + + + + | Maldonado Rea | ECON | Unknown | | + + + + + Care Team Providers + +------+ + | Care Dental Scheduling Coordinator Name | Role | Phone | [...] [place] | | | | | [address] | [address] | | | | | [phone] | | | +--------+ + + + [...] [place] | | | | | | [address] | | | | | | | [...] from L2 through L5 with interbody | [facility] | | hardware at these levels. Stable [...] | + + + + + | [address] | [address] | [place] | [phone] | | [facility] | | [address] | | | - IMAGING | | | | + + + + + documented in this encounter Visit Diagnoses + + | Diagnosis | + + | S/P lumbar fusion - Primary Arthrodesis status | + + documented in this encounter"
--- OUTSIDE RECORDS SUMMARY | ~2019-09-09 | XMS | Encounter Summary ---
Demographics + + + | Address | [address] | | | [place] [address] | + + + | Home Phone [...] Author | [facility] | | | and Carlosana | + + + | Organization | [facility] | [...] [place], [place] | | | | | [address] | | + + + + + | Mao Rea | ECON | Unknown | | + + + + + | Meredith Rea | ECON | Unknown | | + + + + + | Iqra Medina | ECON | [address] | | | | | [place], [place] | | | | | [address] | | + + + + + | Maldonado Rea | ECON | Unknown | | + + + + + Care Team Providers + +------+ + | Care Tile Grader Name | Role | Phone | [...] Specialty | Pain Medicine | Diagnoses | Sands, | | | | Services | | Chronic | Logan Rios MD | | | | Required | | left-sided | [address] | | | | | | low back | [address] | | | | | | pain with | [place], | | | | | | left-sided | [place] [address] | | | | | | sciatica | Phone: | | | | | | Lumbar | [phone] | | | | | | radiculopath | Fax: | | | | | | y Lumbar | [phone] | | | | | | spinal [...] | +--------+ + + + + + Evaluate & Treat (Routine) [...] | | | | low back | [address] | [place], [place] | | | | | pain with | [place], | [address] | | | | | left-sided | [place] [address] | Phone: | | | | | sciatica | Phone: | [phone] | | | | | Lumbar | [phone] | Fax: | | | | | radiculopath | Fax: | [phone] | | | | | y Lumbar | [phone] | | | | | | spinal [...] | + + + | Follow-up | s/p L5-S1 TFESI on 07/12/16 | + + + Encounter Details +--------+---------+ + + + | Date | Type | Department | Care Team | Description | +--------+---------+ + + + | 09/03/ | Office | [facility] [place] | Logan Sands, | Chronic left-sided | | 2016 | Visit | PHYSIATRY [address] | MD [address] | low back pain with | | | | [address] [place], | [place], [place] | left-sided sciatica | | | | [place] [address] | [address] | (Primary Dx); Lumbar | | | | [phone] | | radiculopathy; | | | | | | Lumbar spinal | | | | | | stenosis; History of | | | | | [...] + + + | Blood Pressure | 124/41 | 09/03/2016 10:53 AM | | | | | PDT | | + + + + + | Pulse | 61 | 09/03/2016 10:53 AM | | | | | PDT | | + + + + + | Temperature | - | - | | + + + + + | Respiratory Rate | 20 | 09/03/2016 10:53 AM | | | | | PDT | | + + + + + | Oxygen Saturation | - | - | | + + + + + | Inhaled Oxygen | - | - | | | Concentration | | | | + + + + + | Weight | 95.3 kg (210 lb) | 09/03/2016 10:53 AM | | | | | PDT | | + + + + + | Height | 172.7 cm (5' 8") | 09/03/2016 10:53 AM | | | | | PDT | | + + + + + | Body Mass Index | 31.93 | 09/03/2016 10:53 AM | | | | | PDT [...] Instructions Patient Instructions Logan Sands MD - 09/03/2016 11:29 AM PDTIt is recommended that jennifer follow up with Dr. George to discuss if additional surgery may be a consideration. You had a diagnostic positive response to injection, but failed to have therapeutic benefit . Pain clinic consult has been requested to consider additional medication for pain control. If surgery is not an option and medication does not help enough, spinal cord stimulator may be helpful. Going to the pool for exercise may be helpful. documented in this encounter Progress Notes Logan Sands MD - 09/03/2016 12:27 PM PDT [facility] PHYSIATRY [address] [facility] [address] OFFICE NOTE LOGAN SANDS JR, MD Patient: RACHEL REA Admitting: MR #: [id number] LOC: PT TYPE: Adm Date: 09/03/2016 : 1945 PROGRESS NOTE DATE OF : 1945 PRIMARY CARE PROVIDER: Brandon Juarez MD. DATE OF SERVICE: 09/03/2016. PATIENT IDENTIFICATION: A 71-year-old male with lumbar spinal stenosis, status post lumba r spinal fusion with Koby George MD, approximately 2 years ago, now with radicular symptoms left lower extremity. HISTORY OF PRESENT ILLNESS: The patient has been seen by me in the past for lumbar radicu lopathy. It is felt that current symptoms most closely follow left L5 pattern. He has had physical therapy, which he did not tolerate because of increased pain. He has had medicat ions for neuropathic pain including gabapentin up to 2400 mg per day. He reports that it does not offer any benefit whatsoever. He has been on numerous medications for neuropathic pain including Cymbalta, also which does not seem to offer met him much benefit. When he was last seen, he was sent for diagnostic as well as potentially therapeutic epidural stero id injection. He indicates that the injection offered him immediate reduction in pain, bu t unfortunately failed to offer any long lasting therapeutic benefit. He indicates that he may have felt better at most one week after injection, but no benefit beyond this. He ind icates that pain is back to baseline level. He indicates that the reduction and degree of pain after injection may have been 50 percent at most, probably less. He indicates that h is back pain is an 8/10 on a numerical pain scale. He indicates that pain is constant in t iming. Pain is variable in intensity. Pain is increased with any type of activity, standi ng and walking. Pain may be slightly reduced when lying down. He reports that pain is loc ated in the left buttock, travels down the posterior left thigh and into the left knee. He reports numbness into the left foot, primarily into the left great toe, but also about al l the toes of the foot. He reports continued weakness in the leg. He denies incontinence of bowel. He reports that he has urgency and incontinence of bladder. He denies saddle an esthesia. He denies pain, numbness, tingling, weakness radiating into right lower extremit y. He is wondering what more he might do to manage pain. Pain is significantly interferi ng with life. He reiterates that his expectations are not to be pain-free, but he definite ly feels like he needs more pain relief than he is achieving now. He reports that pain is significantly interfering with his quality of life. ALLERGIES: NO KNOWN DRUG ALLERGIES. CURRENT MEDICATIONS: Vitamin C daily. Calcium with vitamin D daily. Vitamin D3 2000 units daily. Folic acid daily. Arthrotec 75-0.2 mg once daily. Cymbalta 30 mg twice daily. Fish oil 1000 mg 2 tablets 2 times daily. Gabapentin 800 mg 3 times per day. Glucosamine-chondroitin daily. L-methyl folate daily. Arava 10 mg daily. Synthroid 75 mcg daily. Latuda 80 mg daily. Medical cannabis 1-5 puffs twice daily. Methotrexate weekly. Methylcobalamin 1000 mcg daily. Multivitamin with minerals once daily. Omeprazole daily. Propranolol 10 mg 4 times per day. Xeljanz 11 mg daily. REVIEW OF SYSTEMS: The patient denies nausea, vomiting, diarrhea, constipation, fever, ch ills, shortness of breath, or chest pain, denies skin breakdown or rash, denies incontinenc e of bowel, denies saddle anesthesia. He has occasional urgency incontinence of bladder. This is chronic. All other review of systems negative. He has tremor, right upper extrem ity. PHYSICAL EXAMINATION: VITAL SIGNS: Heart rate 61, respiratory rate 20, blood pressure 124/41, weight 210 pounds , height 5 feet 8 inches. GENERAL: No acute distress. Alert to person, place, time and situation. HEENT: Extraocular muscles intact. Sclerae are clear. BACK: Evidence of previous lumbar surgery. Tenderness to palpation over left low back, l eft buttock. Seated straight leg raise positive on the left, negative on the right. Patri ck's test negative bilaterally. EXTREMITIES: Reveals no clubbing, cyanosis or edema. NEUROLOGICAL: Demonstrates 4/5 ankle dorsiflexion on the left compared to 5/5 on the righ t, 4/5 knee flexion strength the left compared to 5/5 on the right, 5/5 hip flexion and ank le plantarflexion bilaterally. Reflexes 2+ over patellar and Achilles both lower extremitie s. Reduced sensation in left lower extremity over L4 and L5 dermatomes. Gait is antalgic . No obvious slap r foot drop noted with gait. Fluoroscopic imaging from 07/12/2016 imaging reviewed by me demonstrates left L5-S1 transf oraminal epidural steroid injection under fluoroscopic guidance. Lumbar MRI 06/23/2016 imaging personally reviewed by me. Imaging demonstrates lumbar fusi on from L2 through L5. There is degenerative disc disease and multilevel neural foraminal narrowing, ranging up to severe in degree. There appears to the neural foraminal narrowing at the level below fusion at L5-S1. ASSESSMENT: 1 Chronic left-sided low back pain with left-sided sciatica, ICD-10 M54.42. 2. Clinical presentation of left L5 radiculopathy, ICD-10 M54.16. 3. History of lumbar s alaina stenosis, ICD-10 M48.06. 4. History of L2 through L5 fusion, ICD-10 Z98.890. 5. 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 PLAN: The patient has failed conservative treatments including anti-inflammatory medicati on, medication for neuropathic pain, physical therapy, repeat epidural steroid injection. Epidural steroid injection, had positive diagnostic response, but failed to have therapeuti c benefit. At this time, I have requested that the patient follow up with Dr. George to review recent MR I imaging and discuss whether further surgical intervention may be a consideration. I have also requested pain clinic consultation for the patient where they can discuss with him fu rther options for management of pain control. We discussed the potential use of opiate me dication for pain control. Today we discussed its risks including addiction, tolerance, wi thdrawal, dependence. We also discussed that most likely they will ask him to discontinue use of marijuana if they are going to use opiate medication for pain control. We also disc ussed that if no further surgery is indicated and he has persisting back pain and radicular symptoms, that spinal cord stimulator may be considered for the treatment of failed back s urgery syndrome. He is asked to continue exercise. Currently he does not tolerate any activity or exercise at all. We discussed that water-based exercise may be at most well tolerated for him sinc e he has failed other activities and therapy in the past. Thank you for allowing me to be involved in the care of your patient. If you have any ques tions regarding the care of Mr. Rea, please do not hesitate to call. LOGAN SANDS JR, MD Dictated by LOGAN SANDS JR, MD 09/03/2016 12:27:39 Transcribed on 09/04/2016 08:25:07 by jada job# [id number] Confirmation #: [id number] cc: BRANDON JUAREZ MD Logan Sands MD - 09/03/2016 11:37 AM PDTThis office note has been dictated. Report Confirmation# [id number] signed by Logan Sands MD at 09/03/2016 12:27 PM PDTdocumented in this encounter Plan of [...] [place] | | | | | | [address] | | | | | | | | +--------+---------+ + + + + + +--------+ + + | Name | Type | Priori | Associated Diagnoses | Order Schedule | | | | ty | | | + + +--------+ + + | * [facility] [place] | Outpatient | Routin | Chronic left-sided | Ordered: 09/03/2016 | | Neurosurgery - AMB | Referral | e | low back pain with | | | Referral | | | left-sided sciatica | | | | | | Lumbar | | | | | | radiculopathy | | | | | | Lumbar spinal | | | | | | stenosis History of | | | | | | lumbar fusion | | | | | | Failed back surgical | | | | | | syndrome | | + + +--------+ + + | Ambulatory referral | Outpatient | Routin | Chronic left-sided | Ordered: 09/03/2016 | | to Pain Clinic | Referral | e | low back pain with | | | | | | left-sided sciatica | | | | | | Lumbar | | | | | | radiculopathy | | | | | | Lumbar spinal | | | | | | stenosis History of | | | | | | lumbar fusion | | | | | | Failed back surgical | | | | | | syndrome | | + + +--------+ + + documented as of this encounter Visit Diagnoses + + | Diagnosis | + + | Chronic left-sided low back pain with left-sided sciatica - Primary | + + | Lumbar radiculopathy Thoracic or lumbosacral neuritis or radiculitis, unspecified | + + | Lumbar spinal stenosis Spinal stenosis, lumbar region, without neurogenic | | claudication | + + | History of lumbar fusion | + + | Failed back surgical syndrome Other unspecified back disorder | + + documented in this encounter
--- OUTSIDE RECORDS SUMMARY | ~2019-09-09 | XMS | Encounter Summary ---
Demographics + + + | Address | [address] | | | [place] [address] | + + + | Home Phone | | + + + | Preferred Language | Unknown | + + + | Marital Status | | + + + | Congregation Affiliation | Unknown | + + + | Race | Unknown | + + + | Ethnic Group | Unknown | + + + Author + + + | Author | [facility] | | | and Carlosana | + + + | Organization | [facility] | [...] [place], [place] | | | | | [address] | | + + + + + | Mao Rea | ECON | Unknown | | + + + + + | Meredith Rea | ECON | Unknown | | + + + + + | Iqra Medina | ECON | [address] | | | | | [place], [place] | | | | | [address] | | + + + + + | Maldonado Rea | ECON | Unknown | | + + + + + Care Team Providers + +------+ + | Care Marketing Production Coordinator Name | Role | Phone | [...] | | | lordosis | | [address] | | | | | (acquired) | | [place], | | | | | Other | | [place] [address] | | | | | lordosis | | Phone: | | | | | (acquired) | | [phone] | | | | | Procedures | | Fax: | | | | | [place] | | [phone] | | | | | ARTHRODESIS | [...] Description | +--------+---------+ + + + | 12/02/ | Surgery | [facility] | Koby George MD | L2-3, L3-4, L4-5 | | 2015 | | MED CTR OR INTRA OP | [address] | LAIF, L2-3, L3-4, | | | | [address] | [place] [address] | L4-5 Posterior | | | | [place] | [phone] | Instrumentation, | | | | [address] | | L2-3 Decompression | | | | [phone] | | | +--------+---------+ + + + [...] might be differen t from the original. [facility] NEUROSURGERY DISCHARGE SUMMARY Patient Name: Uziel [...] PSTUp on chair for meal. at bedside. No david e in assessment. Electronically signed by: Libia Jo [...] Clifford PA - 12/03/2014 7:28 AM PST [facility] PROGRESS NOTE Pt. Name/Age/: Uziel Silas Rea 69 y.o. 1945 Med. Record Number: [id number] Date of admission: 12/02/2014 Subjective: The patient [...] Hard of hearing H/O colon cancer - 2004 Medical marijuana use Former Tobacco Smoker - quit 1980 Plan: Ambulate and work with PT Anticipate dc tomorrow if he continues to do well Electronically signed by: Ender Mora, 12/03/2014 7:28 [facility] documented in th is encounter Plan [...] [place] | | | | | | [address] | | | | | | | [...] + + + | UNIT # | [id number] | | [facility] | | | | [...] St | [place] | | | [facility] | | [address] | | | - BLOOD BANK | [...] | | Code | | | [facility] | | | | | | MEDICAL | | | | | | CENTER - | | | | | | BLOOD BANK | | + + + + + + | UNIT # | [id number] | | [facility] | | | | [...] St | [place] | | | [facility] | | [address] | | | - BLOOD BANK | [...] + | MISCELLANEOUS LAB | | | [phone] | + +---------+ + + | MISCELANIOUS LAB | | | [phone] | + +---------+ + + CBC no Differential (12/03/2014 6:21 AM PST) + + + + + + | Component | Value | Ref Range | Performed | Pathologist | | | | | At | Signature | + + + + + + | WBC | 11.6 (H) | 4.0 - 11.0 K/uL | [facility] | | | | | | [facility] | | | | | | MEDICAL | | | | | | CENTER - | | | | | | LABORATORY | | + + + + + + | RBC | 3.90 (L) | 4.30 - 5.70 | [facility] | | | | | M/uL | [facility] | | | | | | MEDICAL | | | | | | CENTER - | | | | | | LABORATORY | | + + + + + + | Hemoglobin | 12.8 (L) | 13.5 - 18.0 | [facility] | | | | | g/dL | [facility] | | | | [...] + | [facility] | [address] | [place] | [phone] | | [facility] | | [address] | | | - LABORATORY | | | | + + + + + | [facility] | [address] | [place], [place] | | | [facility] | | [address] | | | - LABORATORY | | [...] St | [place] | | | [facility] | | [address] | | | - BLOOD BANK | [...] + | [facility] | [address] | [place], [place] | [phone] | | [facility] | | [address] | | | - LABORATORY | | | | + + + + + | [facility] | [address] | [place] | | | [facility] | | [address] | | | - LABORATORY | | [...] + | [facility] | [address] | [place], [place] | [phone] | | [facility] | | [address] | | | - LABORATORY | | | | + + + + + | [facility] | [address] | [place] | | | [facility] | | [address] | | | - LABORATORY | | | | + + + + + documented in this encounter Visit Diagnoses + + | Diagnosis | + + | Other lordosis (acquired) | + + documented in this encounter Administered Medications + +--------+ +---------+------+------+ | Medication Order | MAR | Action | Dose | Rate | Site | | | Action | Date | | | | + +--------+ +---------+------+------+ | bacitracin in NS solution PRN, | Given | 12/02/19 | 50,000 | | | | Starting 12/02/14 at 1419, | | 15 5:09 | Units | | | | Intra-op | | PM PST | | | | + +--------+ +---------+------+------+ +-------+ +---------+---+---+ | Given | 12/02/19 | 50,000 | | | | | 15 2:19 | Units | | | | | PM PST | | | | +-------+ +---------+---+---+ +---+---+ | | | +---+---+ + +-------+ +--------+---+ + | bupivacaine 0.5%-epinephrine | Given | 12/02/19 | 15 mLs | | Surgical | | 1:200,000 0.5-1:044326 % | | 15 5:08 | | | Site | | injection PRN, Starting Mon | | PM PST | | | | | 12/02/14 at 1419, Intra-op | | | | | | + +-------+ +--------+---+ + +-------+ +--------+---+---+ | Given | 12/02/19 | 15 mLs | | | | | 15 2:19 | | | | | | PM PST | | | | +-------+ +--------+---+---+ +---+---+ | | | +---+---+ documented in this encounter
--- OUTSIDE RECORDS SUMMARY | ~2019-09-09 | XMS | Encounter Summary ---
Demographics + + + | Address | [address] | | | [place] [address] | + + + | Home Phone | | + + + | Preferred Language | Unknown | + + + | Marital Status | | + + + | Restoration Affiliation | Unknown | + + + | Race | Unknown | + + + | Ethnic Group | Unknown | + + + Author + + + | Author | [facility] | | | and Carlosana | + + + | Organization | [facility] [...] [place], [place] | | | | | [address] | | + + + + + | Mao Rea | ECON | Unknown | | + + + + + | Meredith Rea | ECON | Unknown | | + + + + + | Iqra Medina | ECON | [address] | | | | | [place], [place] | | | | | [address] | | + + + + + | Maldonado Rea | ECON | Unknown | | + + + + + Care Team Providers + +------+ + | Care Hands Parter Name | Role | Phone | + [...] | | | | | neurogenic | [place], | | | | | | claudication | [place] [address] | | | | | | S/P lumbar | Phone: | | | | | | fusion | [phone] | | | | | | | Fax: | | | | | | | [phone] | | +--------+ + + + + + Reason for Visit + + + | Reason | Comments | + + + | Follow-up | 4 Week PO | + + + Encounter Details +--------+---------+ + + + | Date | Type | Department | Care Team | Description | +--------+---------+ + + + | 01/07/ | Office | [facility] | Ender Mora | Flat back syndrome | | 2015 | Visit | NEUROSURGERY [address] | [address] | (Primary Dx); Lumbar | | | | [address] | [address] | stenosis with | | | | [place], [place] | [place], [place] | neurogenic | | | | [address] | [address] | claudication; S/P | | | | [phone] | | lumbar fusion | +--------+---------+ + [...] like sleeping, showering, do not use the [employer] race for these activities any longer but [...] your back 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 Electronic[employer] lly signed by DOM Lo at 01/07/2015 12:37 PM PDT documented in this encounter Progress Notes Ender Mora PA - 01/07/2015 12:40 PM PDTFormatting of this note might be differen t from the original. DOM Sampson [address] [facility] [place] [place], [address] [place] [address] FAX: NEUROSURGERY SURGICAL FOLLOW-UP CHIEF COMPLAINT: Chief [...] them to make an appointment with her emergency planning and response manager some time after their next follow-up appointment [...] [place] | | | | | | [phone] | | | | | | | [...] from L2 through L5 with interbody | [facility] | | hardware at these levels. [...] + | Performing | Address | City/State/[facility] | Phone Number | | Organization | | | | + + + + + | [facility] | [address] | [place] | [phone] | | [facility] | | [address] | | | - IMAGING | | [...]
--- OUTSIDE RECORDS SUMMARY | ~2019-09-09 | XMS | Encounter Summary ---
Demographics + + + | Address | [address] | | | [place] [address] | + + + | Home Phone | | + + + | Preferred Language | Unknown | + + + | Marital Status | | + + + | Episcopalian Affiliation | Unknown | + + + | Race | Unknown | + + + | Ethnic Group | Unknown | + + + Author + + + | Author | [facility] | | | and [place]ana | + + + | Organization | [facility] [...] [place], [place] | | | | | [address] | | + + + + + | Mao Rea | ECON | Unknown | | + + + + + | Meredith Rea | ECON | Unknown | | + + + + + | Iqra Medina | ECON | [address] | | | | | [place], [place] | | | | | [address] | | + + + + + | Maldonado Rea | ECON | Unknown | | + + + + + Care Team Providers + +------+ + | Care Hand Mold Maker Name | Role | Phone | + +------+ + | Brandon Juarez MD | PCP | | + +------+ + Reason for Visit +---------+ + | Reason | Comments | +---------+ + | Results | | +---------+ + Encounter Details +--------+ + + + + | Date | Type | Department | Care Team | Description | +--------+ + + + + | 06/28/ | Telephone | [facility] [place] | Logan Soto, | Results | | 2016 | | PHYSIATRY [address] | [address] | | | | | [place], | [place], [place] | | | | | [place] [address] | [address] | | | | | [phone] | | | +--------+ + + + [...] [place] | | | | | | [address] | | | | | | | | +--------+---------+ + + + documented as of this encounter Visit Diagnoses Not on filedocumented in this encounter"
--- OUTSIDE RECORDS SUMMARY | ~2019-09-09 | XMS | Encounter Summary ---
Demographics + + + | Address | [address] | | | [place] [address] | + + + | Home Phone [...] Author | [facility] | | | and Carlosana | + + + | Organization | [facility] | [...] [place], [place] | | | | | [address] | | + + + + + | Mao Rea | ECON | Unknown | | + + + + + | Meredith Rea | ECON | Unknown | | + + + + + | Iqra Medina | ECON | [address] | | | | | [place], [place] | | | | | [address] | | + + + + + | Maldonado Rea | ECON | Unknown | | + + + + + Care Team Providers + +------+ + | Care Evp Marketing Name | Role | Phone | + [...] | | | | | | | [place] ARTHDSIS | | | | | | [...] | | | | | | ION [place] INSJ | | | | | | [...] | | | | | | SEG [place] | | | | | | | ALLOGRAFT | | | | | | | FOR SPINE | | | | | | | SURGERY ONLY | | | | | | | MORSELIZED | | | | | | | NC REINSERT | | | | | | | SPINAL | | | | | | | FIXATION NC | | | | | | | REINSERT | | | | | | | SPINAL | | | | | | | FIXATION NC | | | | | | | REINSERT | | | | | | | SPINAL | | | | | | | FIXATION NC | | | | | | | INSJ | | | | | | | BIOMCHN DEV | | | | | | | INTERVERTEBR | | | | | | | AL DSC SPC | | | | | | | W/ARTHRD NC | | | | | | | INSJ | | | | | | | BIOMCHN DEV | | | | | | | INTERVERTEBR | | | | | | | AL DSC SPC | | | | | | | W/ARTHRD NC | | | | | | | | | | | | | | LAMINEC/FACE | | | | | | | TECT/FORAMIN | | | | | | | ,EACH ADDNL | | | | | | | [place] | | | | | | [...] + + | 02/23/ | Hospital | [facility] | Koby George MD | Gait abnormality | | 2017 - | Encounter | MED CTR SURGICAL | [address] | (Primary Dx) | | | | [address] | [place] [address] | | | 02/26/ | | [place] [address] | [phone] | | | 2016 | | [phone] | | | +--------+ + + + [...] might be differ ent from the original. [facility] NEUROSURGERY DISCHARGE SUMMARY Patient Name: [...] times daily (with breakfast & dinner). Follow-Up: B Brafranco 4 week Next week with PCP regarding [...] month post op appointment before your appointment. 9469-0880 [employer]. [address] [place] [address], [place] [address]. All righ ts reserved. This information is [...] PDTPrescriptions given to , to fill at [facility] [place], patient lives in [place], [place]. Electronically signed by: Kel Doran RN 02/26/2017 8:58 est, Ender Ramos PA-C - 02/25/2017 7:25 AM PDTFormatting of this note might be different from the o riginal. [facility] NEUROSURGERY PROGRESS NOTE PATIENT NAME: Uziel [...] has no apparent deficits with short or assisted memory. MOTOR EXAM: Motor strength is stable [...] Linder PA-C - 02/24/2017 7:25 AM PDT [facility] NEUROSURGERY PROGRESS NOTE PATIENT NAME: Uziel [...] 12.5 mg 12.5 mg Intravenous Q4H PRN Enedr Mora PA-C Or diphenhydrAMINE (BENADRYL) tablet 25 [...] AC Ender Mora PA-C 75 mcg at 02/24/17 [...] has no apparent deficits with short or assisted memory. MOTOR EXAM: Motor strength is stable SENSORY EXAM: Sensory exam is stable 24 HOUR LABS: All Component Based Labs (Last 10 results in the past 24 hours) None ASSESSMENT: NEUROSURGICAL DIAGNOSES: S/p lumbar fusion HOSPITAL/GENERAL DIAGNOSES: Past Medical History Diagnosis Date Depression Arthritis rheumatoid Cancer ([facility]) 2004 colon cancer Anxiety Hypothyroid Hard of hearing bilateral hearing aids Rheumatoid arthritis ([facility]) Tremor Sleep apnea no CPAP Lumbar radiculopathy [...] [place] | | | | | | [id number] | | | | | | | [...] | | [place] | | | n [place] | | | | | | FrameE [...] DAILY, First dose on Tue | | 9:54 | | | | | 02/23/17 [...] PDT | | | | | Starting [facility] 02/24/17 at 1401, One | | [...] | | | | PRN, Pain, Starting 02/23/17 | | AM PDT | [...] | 5-10 mg 5-10 mg, Oral, EVERY | | 17 11:54 | | | [...] | | | PRN, Muscle spasms, Starting Tue | | PM PDT | | | [...]
--- OUTSIDE RECORDS SUMMARY | ~2019-09-09 | XMS | Encounter Summary ---
Demographics + + + | Address | [address] | | | [place] [address] | + + + | Home Phone [...] Organization | [facility] [...] [place], [place] | | | | | [address] | | + + + + + | Mao Rea | ECON | Unknown | | + + + + + | Meredith Rea | ECON | Unknown | | + + + + + | Iqra Medina | ECON | [address] | | | | | [place], [place] | | | | | [address] | | + + + + + | Maldonado Rea | ECON | Unknown | | + + + + + Care Team Providers + +------+ + | Care Concrete Stone Finisher Name | Role | Phone | [...] | (Primary Dx) | | | | [place], | [place] | | | | | [place] [address] | [address] | | | | | [phone] | | | +--------+ + + + [...] [place] | | | | | | [address] | | | | | | | [...]
--- OUTSIDE RECORDS SUMMARY | ~2019-09-09 | XMS | Encounter Summary ---
Demographics + + + | Address | [address] | | | [place] [address] | + + + | Home Phone | | + + + | Preferred Language | Unknown | + + + | Marital Status | | + + + | Denominational Affiliation | Unknown | + + + | Race | Unknown | + + + | Ethnic Group | Unknown | + + + Author + + + | Author | [facility] | | | and Carlosana | + + + | Organization | [facility] | | [...] [place], [place] | | | | | [address] | | + + + + + | Mao Rea | ECON | Unknown | | + + + + + | Meredith Rea | ECON | Unknown | | + + + + + | Iqar Medina | ECON | [address] | | | | | [place], [place] | | | | | [address] | | + + + + + | Maldonado Rea | ECON | Unknown | | + + + + + Care Team Providers + +------+ + | Care Insurance Checker Name | Role | Phone | [...] | | [address] | [place] [address] | | | | | [place] | [phone] | | | | | [address] | | | | | | [phone] | | | +--------+ + + + [...] [place] | | | | | | [id number] | | | | | | | | +--------+---------+ + + + documented as of this encounter Visit Diagnoses Not on filedocumented in this encounter"
--- OUTSIDE RECORDS SUMMARY | ~2019-09-09 | XMS | Encounter Summary ---
Demographics + + + | Address | [address] | | | [place] [address] | + + + | Home Phone [...] | Organization | [facility] | [...] [place], [place] | | | | | [address] | | + + + + + | Mao Rea | ECON | Unknown | | + + + + + | Meredith Rea | ECON | Unknown | | + + + + + | Iqra Medina | ECON | [address] | | | | | [place], [place] | | | | | [address] | | + + + + + | Maldonado Rea | ECON | Unknown | | + + + + + Care Team Providers + +------+ + | Care Biomedical Scientist Name | Role | Phone | + +------+ + | Sherie Vela PA-C | PCP | | + +------+ + Reason for Visit + + + | Reason | Comments | + + + | Follow-up | | + + + | Post-op Problem | | + + + Encounter Details [...] | | [address] | [place] [address] | | | | | [place] | [phone] | | | | | [address] | | | | | | [phone] | | | +--------+ + + + [...] [place] | | | | | | [address] | | | | | | | | +--------+---------+ + + + documented as of this encounter Visit Diagnoses Not on filedocumented in this encounter"
--- OUTSIDE RECORDS SUMMARY | ~2019-09-09 | XMS | Encounter Summary ---
Demographics + + + | Address | [address] | | | [place] [address] | + + + | Home Phone [...] | Organization | [facility] [...] [place], [place] | | | | | [address] | | + + + + + | Mao Rea | ECON | Unknown | | + + + + + | Meredith Rea | ECON | Unknown | | + + + + + | Iqra Medina | ECON | [address] | | | | | [place], [place] | | | | | [address] | | + + + + + | Maldonado Rea | ECON | Unknown | | + + + + + Care Team Providers + +------+ + | Care Women Designer Name | Role | Phone | + [...] | | [address] | [place] [address] | | | | | [place] | [phone] | | | | | [address] | | | | | | [phone] | | | +--------+ + + + [...] [place] | | | | | | [address] | | | | | | | | +--------+---------+ + + + documented as of this encounter Visit Diagnoses Not on filedocumented in this encounter"
--- OUTSIDE RECORDS SUMMARY | ~2019-09-09 | XMS | Encounter Summary ---
Demographics + + + | Address | [address] | | | [place] [address] | + + + | Home Phone | | + + + | Preferred Language | Unknown | + + + | Marital Status | | + + + | Spiritism Affiliation | Unknown | + + + | Race | Unknown | + + + | Ethnic Group | Unknown | + + + Author + + + | Author | [facility] | | | and Carlosana | + + + | Organization | [facility] | | | and [...] [place], [place] | | | | | [address] | | + + + + + | Mao Rea | ECON | Unknown | | + + + + + | Meredith Rea | ECON | Unknown | | + + + + + | Iqra Medina | ECON | [address] | | | | | [place], [place] | | | | | [address] | | + + + + + | Maldonado Rea | ECON | Unknown | | + + + + + Care Team Providers + +------+ + | Care Picking Machine Operator Name | Role | Phone [...] | | [address] | [place] [address] | | | | | [place] | [phone] | | | | | [address] | | | | | | [phone] | | | +--------+ + + + [...] [place] | | | | | | [address] | | | | | | | | +--------+---------+ + + + documented as of this encounter Visit Diagnoses Not on filedocumented in this encounter"
--- OUTSIDE RECORDS SUMMARY | ~2019-09-09 | XMS | Encounter Summary ---
Demographics + + + | Address | [address] | | | [place] [address] | + + + | Home Phone [...] Organization | [facility] [...] [place], [place] | | | | | [address] | | + + + + + | Mao Rea | ECON | Unknown | | + + + + + | Meredith Rea | ECON | Unknown | | + + + + + | Iqra Medina | ECON | [address] | | | | | [place], [place] | | | | | [address] | | + + + + + | Maldonado Rea | ECON | Unknown | | + + + + + Care Team Providers + +------+ + | Care Emotionally Impaired Teacher Name | Role | Phone | [...] | | | | low back | [address] | [place], [place] | | | | | pain with | [place], | [address] | | | | | left-sided | [place] [address] | Phone: | | | | | sciatica | Phone: | [phone] | | | | | Lumbar | [phone] | Fax: | | | | | radiculopath | Fax: | [phone] | | | | | y Lumbar | [phone] | | | | | | spinal [...] + + | 11/30/ | Office | [facility] [place] | Ender Mora | 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 I've encouraged [...] [place] | | | | | | [address] | | | | | | | [...]
--- OUTSIDE RECORDS SUMMARY | ~2019-09-09 | XMS | Encounter Summary ---
Demographics + + + | Address | [address] | | | [place] [address] | + + + | Home Phone | | + + + | Preferred Language | Unknown | + + + | Marital Status | | + + + | Shinto Affiliation | Unknown | + + + | Race | Unknown | + + + | Ethnic Group | Unknown | + + + Author + + + | Author | [facility] | | | and Carlosana | + + + | Organization | [facility] | | | and [...] [place], [place] | | | | | [address] | | + + + + + | Mao Rea | ECON | Unknown | | + + + + + | Meredith Rea | ECON | Unknown | | + + + + + | Iqra Medina | ECON | [address] | | | | | [place], [place] | | | | | [address] | | + + + + + | Maldonado Rea | ECON | Unknown | | + + + + + Care Team Providers + +------+ + | Care Water Control Supervisor Name | Role | Phone [...] 2019 | | NEUROLOGY [facility] | [address] 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
--- OUTSIDE RECORDS SUMMARY | ~2019-09-09 | XMS | Encounter Summary ---
Demographics + + + | Address | [address] | | | [place] [address] | + + + | Home Phone [...] + + | Organization | [facility] | | | [...] [place], [place] | | | | | [address] | | + + + + + | Mao Rea | ECON | Unknown | | + + + + + | Meredith Rea | ECON | Unknown | | + + + + + | Iqra Medina | ECON | [address] | | | | | [place], [place] | | | | | [address] | | + + + + + | Maldonado Rea | ECON | Unknown | | + + + + + Care Team Providers + +------+ + | Care Environmental Engineer Scientist Name | Role | Phone | + +------+ + | Sherie Vela PA-C | PCP | | + +------+ + Reason for Visit + + + | Reason | Comments | + + + | CPAP Follow Up | | + + + Encounter Details +--------+ + + + + | Date | Type | Department | Care Team | Description | +--------+ + + + + | 09/25/ | Telephone | [facility] | Jarvis Dawson, | CPAP Follow Up | | 2018 | | SLEEP DISORDER [address] | MD [address] [facility] | | | | | [address] | [place] [address] | | | | | [place] [address] | [place] | | | | | [phone] | [address] | | | | | | | [...] [place] | | | | | | [address] | | | | | | | | +--------+---------+ + + + documented as of this encounter Visit Diagnoses Not on filedocumented in this encounter"
--- OUTSIDE RECORDS SUMMARY | ~2019-09-09 | XMS | Encounter Summary ---
Demographics + + + | Address | [address] | | | [place] [address] | + + + | Home Phone [...] | Organization | [facility] [...] [place], [place] | | | | | [address] | | + + + + + | Mao Rea | ECON | Unknown | | + + + + + | Meredith Rea | ECON | Unknown | | + + + + + | Iqra Medina | ECON | [address] | | | | | [place], [place] | | | | | [address] | | + + + + + | Maldonado Rea | ECON | Unknown | | + + + + + Care Team Providers + +------+ + | Care Bread Pan Greaser Name | Role | Phone | + +------+ + PCP | Unavailable | + +------+ + Encounter Details +--------+ + + + + | Date | Type | Department | Care Team | Description | +--------+ + + + + | 06/30/ | Hospital | [facility] | Hadley Weiss | | | 2010 | Encounter | MED CTR SLEEP | MD [address] | | | | | [place] [address] | [facility] | | | | | [place] | [place] [address] | | | | | [address] | [phone] | | | | | [phone] | | | +--------+ + + + [...] [place] | | | | | | [address] | | | | | | | | +--------+---------+ + + + documented as of this encounter Visit Diagnoses Not on filedocumented in this encounter"
--- OUTSIDE RECORDS SUMMARY | ~2019-09-09 | XMS | Encounter Summary ---
Demographics + + + | Address | [address] | | | [place] [address] | + + + | Home Phone [...] + | Organization | [facility] | [...] [place], [place] | | | | | [address] | | + + + + + | Mao Rea | ECON | Unknown | | + + + + + | Meredith Rea | ECON | Unknown | | + + + + + | Iqra Medina | ECON | [address] | | | | | [place], [place] | | | | | [address] | | + + + + + | Maldonado Rea | ECON | Unknown | | + + + + + Care Team Providers + +------+ + | Care Make Up Girl Name | Role | Phone | + +------+ + PCP | Unavailable | + +------+ + Encounter Details +--------+ + + + + | Date | Type | Department | Care Team | Description | +--------+ + + + + | 06/30/ | Hospital | [facility] | Hadley Weiss | | | 2010 | Encounter | MED CTR SLEEP | MD [address] | | | | | [place] [address] | [place] [facility] | | | | | [place] | [place] [address] | | | | | [address] | [phone] | | | | | [phone] | | | +--------+ + + + [...] [place] | | | | | | [address] | | | | | | | | +--------+---------+ + + + documented as of this encounter Visit Diagnoses Not on filedocumented in this encounter"
--- OUTSIDE RECORDS SUMMARY | ~2019-09-09 | XMS | Encounter Summary ---
Demographics + + + | Address | [address] | | | [place] [address] | + + + | Home Phone [...] + + + | Organization | [facility] [...] [place], [place] | | | | | [address] | | + + + + + | Mao Rea | ECON | Unknown | | + + + + + | Meredith Rea | ECON | Unknown | | + + + + + | Iqra Medina | ECON | [address] | | | | | [place], [place] | | | | | [address] | | + + + + + | Maldonado Rea | ECON | Unknown | | + + + + + Care Team Providers + +------+ + | Care Snow Maker Name | Role | Phone | [...] | | | | | | | [place] ARTH[place]IS | | | | | | [...] | | | | | | ION [place] INSJ | | | | | | [...] | | | | | | SEG [place] | | | | | | | ALLOGRAFT | | | | | | | FOR SPINE | | | | | | | SURGERY ONLY | | | | | | | MORSELIZED | | | | | | | [place] REINSERT | | | | | | | SPINAL | | | | | | | FIXATION [place] | | | | | | | REINSERT | | | | | | | SPINAL | | | | | | | FIXATION [place] | | | | | | | REINSERT | | | | | | | SPINAL | | | | | | | FIXATION [place] | | | | | | | INSJ | | | | | | | BIOMCHN DEV | | | | | | | INTERVERTEBR | | | | | | | AL DSC SPC | | | | | | | W/ARTHRD [place] | | | | | | | INSJ | | | | | | | BIOMCHN DEV | | | | | | | INTERVERTEBR | | | | | | | AL DSC SPC | | | | | | | W/ARTHRD [place] | | | | | | | | | | | | | | LAMINEC/FACE | | | | | | | TECT/FORAMIN | | | | | | | ,EACH ADDNL | | | | | | | [place] | | | | | | [...] + + | 02/23/ | Surgery | [facility] | Koby George MD | L5-S1 Transforaminal | | 2017 | | MED CTR OR INTRA OP | [address] | Lumbar Interbody | | | | [address] | [place] [address] | Fusion, Hardware | | | | [place] | [phone] | Revision @ L2-3, | | | | [address] | | L3-4, L4-5 | | | | [phone] | | | +--------+---------+ + + + [...] might be differ ent from the original. [facility] NEUROSURGERY DISCHARGE SUMMARY Patient Name: Uziel Rea [...] month post op appointment before your appointment. 9895-7616 [employer]. [address] [place] [address], [place] [address]. All righ ts reserved. This information is [...] PDTPrescriptions given to , to fill at [facility] in [facility], patient lives in [place], [place]. Electronically signed by: Kel Doran RN 02/26/2017 8:58 Ender Doherty PA-C - 02/25/2017 7:25 AM PDTFormatting of this note might be different from the o riginal. [facility] NEUROSURGERY PROGRESS NOTE PATIENT NAME: Uziel Rea [...] Intake/Output Summary (Last 24 hours) at 02/25/17 0703 Last data filed at 02/25/17 0711 Gross [...] has no apparent deficits with short or termination clerk memory. MOTOR EXAM: Motor strength is stable [...] Linder PA-C - 02/24/2017 7:25 AM PDT [facility] NEUROSURGERY PROGRESS NOTE PATIENT NAME: Uziel Rea [...] apparent deficits with short or intermediate memory. MOTOR EXAM: Motor strength is stable [...] | | [place] | | | [place] | | | | | | FrameE [...]
--- OUTSIDE RECORDS SUMMARY | ~2019-09-09 | XMS | Encounter Summary ---
Demographics + + + | Address | [address] | | | [place] [address] | + + + | Home Phone [...] | Organization | [facility] | | | and [...] [place], [place] | | | | | [address] | | + + + + + | Mao Rea | ECON | Unknown | | + + + + + | Meredith Rea | ECON | Unknown | | + + + + + | Iqra Medina | ECON | [address] | | | | | [place], [place] | | | | | [address] | | + + + + + | Maldonado Rea | ECON | Unknown | | + + + + + Care Team Providers + +------+ + | Care Home Health Care Coordinator Name | Role | Phone | + +------+ + | Brandon Juarez MD | PCP | | + +------+ + Encounter Details +--------+ + + + + | Date | Type | Department | Care Team | Description | +--------+ + + + + | 03/08/ | [facility] | [facility] | Koby George MD | S/P lumbar fusion | | 2017 | Encounter | MED CTR XRAY [address] | [address] | | | | | [address] | [place] [address] | | | | | [place] [address] | [phone] | | | | | [phone] | | | +--------+ + + + [...] [place] | | | | | | [address] | | | | | | | [...] follow up. COMPARISON: Multiple priors. FINDINGS: | . CH[place] | | Again visualized are hardware for posterior fusion from L2 through the | [facility] | | SI joints with spacer hardware [...] + | Alexis, Sen Results In - 03/08/2017 11:58 AM PDT [...] | | | |Dictated and Signed by: Sne Polanco MD | | Electronically signed: 03/08/2017 11:55 AM | + + + + + + + | Performing | Address | City/State/Zipcode | Phone Number | | Organization | | | | + + + + + | [facility] | [address] | [place] | [phone] | | [facility] | | [address] | | | - IMAGING | | | | + + + + + documented in this encounter Visit Diagnoses + + | Diagnosis | + + | S/P lumbar fusion Arthrodesis status | + + documented in this encounter"
--- OUTSIDE RECORDS SUMMARY | ~2019-09-09 | XMS | Encounter Summary ---
Demographics + + + | Address | [address] | | | [place] [address] | + + + | Home Phone [...] Author | [facility] | | | and [place] | + + + | Organization | [facility] [...] [place], [place] | | | | | [address] | | + + + + + | Mao Rea | ECON | Unknown | | + + + + + | Meredith Rea | ECON | Unknown | | + + + + + | Iqra Medina | ECON | [address] | | | | | [place], [place] | | | | | [address] | | + + + + + | Maldonado Rea | ECON | Unknown | | + + + + + Care Team Providers + +------+ + | Care Inking Machine Tender Name | Role | Phone | [...] | PHYSIATRY [address] | [address] | | | | | [place], | [place], [place] | | | | | [place] [address] | [address] | | | | | [phone] | | | +--------+ + + + [...] [place] | | | | | | [address] | | | | | | | | +--------+---------+ + + + documented as of this encounter Visit Diagnoses Not on filedocumented in this encounter"
--- OUTSIDE RECORDS SUMMARY | ~2019-09-09 | XMS | Encounter Summary ---
Demographics + + + | Address | [address] | | | [place] [address] | + + + | Home Phone | | + + + | Preferred Language | Unknown | + + + | Marital Status | | + + + | Orthodoxy Affiliation | Unknown | + + + | Race | Unknown | + + + | Ethnic Group | Unknown | + + + Author + + + | Author | [facility] | | | and [place] | + + + | Organization | [facility] [...] [place], [place] | | | | | [address] | | + + + + + | Mao Rea | ECON | Unknown | | + + + + + | Meredith Rea | ECON | Unknown | | + + + + + | Iqra Medina | ECON | [address] | | | | | [place], [place] | | | | | [address] | | + + + + + | Maldonado Rea | ECON | Unknown | | + + + + + Care Team Providers + +------+ + | Care Police Communications Operator Name | Role | Phone | + +------+ + | Brandon Juarez MD | PCP | | + +------+ + Encounter Details +--------+ + + + + | Date | Type | Department | Care Team | Description | +--------+ + + + + | 02/18/ | [facility] | [facility] | Koby George MD | Lumbar | | 2017 | Encounter | MED CTR XRAY [address] | [address] | radiculopathy; | | | | [address] [place] | [place] [address] | Pseudoarthrosis of | | | | [place] [address] | [phone] | lumbar spine; | | | | [phone] | | Synovial cyst of | | | | | Christopher Alvarado MD | lumbar facet joint; | | | | | [address] | S/P lumbar fusion; | | | | | [place] | Flat back syndrome; | | | | | [address] | Degenerative disc | | | | [...] [place] | | | | | | [address] | | | | | | | [...] COMPARISON: Chest radiographs October 2014 | [facility] | | FINDINGS: There is [...] | [facility] | [address] | [place], [place] | [phone] | | [facility] | | [address] | | | - IMAGING | | [...]
--- OUTSIDE RECORDS SUMMARY | ~2019-09-09 | XMS | Encounter Summary ---
Demographics + + + | Address | [address] | | | [place] [address] | + + + | Home Phone [...] | Organization | [facility] | [...] [place], [place] | | | | | [address] | | + + + + + | Mao Rea | ECON | Unknown | | + + + + + | Meredith Rea | ECON | Unknown | | + + + + + | Iqra Medina | ECON | [address] | | | | | [place], [place] | | | | | [address] | | + + + + + | Maldonado Rea | ECON | Unknown | | + + + + + Care Team Providers + +------+ + | Care Partnership Marketing Manager Name | Role | Phone [...] | Logan Rios MD | [address] | | | | | radiculopath | [address] | [place], | | | | | y Left leg | [address] | [place] | | | | | pain Left | [place], | [address] | | | | | leg weakness | [place] [address] | Phone: | | | | | Numbness | Phone: | [phone] | | | | | of left foot | [phone] | Fax: | | | | | History of | Fax: | [phone] | | | | | lumbar | [phone] | | | | | | fusion [...] | Logan Rios MD | [address] | | | | | radiculopath | [address] | [place], | | | | | y Left leg | [address] | [place] | | | | | pain Left | [place], | [address] | | | | | leg weakness | [place] [address] | Phone: | | | | | Numbness | Phone: | [phone] | | | | | of left foot | [phone] | Fax: | | | | | History of | Fax: | [phone] | | | | | lumbar | [phone] | | | | | | fusion [...] + + | 06/23/ | Hospital | [facility] | Logan Soto, | Lumbar | | 2016 | Encounter | MED CTR MRI [address] | MD [address] | radiculopathy; Left | | | | [place], | [place], [place] | leg pain; Left leg | | | | [place] [address] | [address] | weakness; Numbness | | | | [phone] | | of left foot; | | [...] [place] | | | | | | [address] | | | | | | | [...] pattern. COMPARISON: MRI lumbar spine 06/26/2014 | [facility] | | and lumbar spine x-ray [...] + | [facility] | [address] | [place] | [phone] | | [facility] | | [address] | | | - IMAGING | | [...]
--- OUTSIDE RECORDS SUMMARY | ~2019-09-09 | XMS | Encounter Summary ---
Demographics + + + | Address | [address] | | | [place] [address] | + + + | Home Phone | | + + + | Preferred Language | Unknown | + + + | Marital Status | | + + + | Caodaism Affiliation | Unknown | + + + | Race | Unknown | + + + | Ethnic Group | Unknown | + + + Author + + + | Author | [facility] | | | and [place] | + + + | Organization | [facility] | | | [...] [place], [place] | | | | | [address] | | + + + + + | Mao Rea | ECON | Unknown | | + + + + + | Meredith Rea | ECON | Unknown | | + + + + + | Iqra Medina | ECON | [address] | | | | | [place], [place] | | | | | [address] | | + + + + + | Maldonado Rea | ECON | Unknown | | + + + + + Care Team Providers + +------+ + | Care Hand Fur Cleaner Name | Role | Phone | [...] | | [address] | [place] [address] | | | | | [place] | [phone] | | | | | [address] | | | | | | [phone] | | | +--------+ + + + [...] [place] | | | | | | [address] | | | | | | | | +--------+---------+ + + + documented as of this encounter Visit Diagnoses Not on filedocumented in this encounter"
--- OUTSIDE RECORDS SUMMARY | ~2019-09-09 | XMS | Encounter Summary ---
Demographics + + + | Address | [address] | | | [place] [address] | + + + | Home Phone [...] | Organization | [facility] | | | and [...] [place], [place] | | | | | [address] | | + + + + + | Mao Rea | ECON | Unknown | | + + + + + | Meredith Rea | ECON | Unknown | | + + + + + | Iqra Medina | ECON | [address] | | | | | [place], [place] | | | | | [address] | | + + + + + | Maldonado Rea | ECON | Unknown | | + + + + + Care Team Providers + +------+ + | Care Autocad Electrical Designer Name | Role | Phone | [...] Description | +--------+---------+ + + + | 09/06/ | Office | [facility] | Logan Soto, | Chronic left-sided | | 2017 | Visit | PHYSIATRY [address] | [address] | low back pain with | | | | [place], | [place], [place] | left-sided sciatica | | | | [place] [address] | [address] | (Primary Dx); Lumbar | | | | [phone] | | radiculopathy; | | | | [...] + + + | Blood Pressure | 140/86 | 09/06/2017 1:41 PM | | | | | PST | | + + + + + | Pulse | 50 | 09/06/2017 1:41 PM | | | | | PST [...] + + + + | Weight | 97.5 kg (215 lb) | 09/06/2017 1:33 PM | | | | | PST | | + + + + + | Height | 172.7 cm (5' 8") | 09/06/2017 1:33 PM | | | | | PST | | + + + + + | Body Mass Index | 32.69 | 09/06/2017 1:33 PM | | | | | PST [...] Instructions Patient Instructions Petra Prater RN - 09/06/2017 1:30 PM PSTPlease turn in 2.5 month s. At this time we can discuss repeat injections. Please continue to discuss SI treatment with Dr. Piedra. Please continue daily exercises as outlined by Physical Therapy. Please let us know if your right hand numbness comes back. documented in this encounter Progress Notes Logan Soto MD - 09/06/2017 1:30 PM PSTFormatting of this note might be different fro m the original. Logan Soto MD [address] [place] [address], [address] [place], [place] [address] FAX: PHYSICAL MEDICINE AND REHABILITATION H&P CHIEF COMPLAINT: Chief Complaint Patient presents with Back Pain HISTORY OF PRESENT ILLNESS: Uziel Rea is a 72 y.o. male being seen today in follow-up for complaints of back raj n. Uziel Rea was last seen on 07/20/17. Previously it was recommended that he comp lete left L2-R0OPENN, that he complete consult with Dr. Jessica to discuss treatment with RFA for his SI dysfunction, and to return to the office in 6 weeks to review his symptoms. He reports that the treatment was effective in reducing his back pain. Overall Uziel Rea reports that his symptoms are improving. He rates the pain as 5 o n scale of 1-10. He describes the pain as sharp and aching. His symptoms worsen with walki ng, standing up from sitting in a chair, standing in place, and ridding in a car. His sympt oms improve with lying down, sitting down and resting, and use of pain medication. Uziel Hoyt does describe numbness of the bilateral feet. He does report weakness of the margarita ateral legs, and generalized weakness. Uziel Rea reports having intermittent inconti nence of bladder. He describes this as stress incontinence. He presents to the clinic today after having a recent episode of incontinence while waiting in the lobby. He reports incont inence since prior to have back fusion surgery. This is a chronic condition. Treatments for these complaints have included Physical Therapy, steroid injections, medicat ions, and surgeries. Uziel Rea is currently taking oxycodone 5-20 mg every 4 hours a s needed. He is also taking gabapentin 800 mg TID for treatment of pain. He reports doing at home exercises as outlined by PT 5 days weekly. Prior injections have included fluoroscopically-guided left L2-L3 transforaminal epidural s teroid injection as part of conservative management for chronic pain with lumbar radiculopat hy and degenerative disc disease completed on 08/09/[address] Jiménez. Uziel Rea reports having 100% improvement directly following the injection. Uziel Rea reports that 2 weeks following the injection they experienced approximately 80% improvement to their pain. Today Uziel Rea reports that the injection has been helpful in reducing his pa in. Uziel Rea reports that he has completed consult with Dr. Jessica. He reports that Dr Gokul Jessica recommends treatment with a SI joint RFA. Uziel Silas Rea's medications, allergies, past medical, surgical, social [...] for itching and rash. Neurological: Positive for weakness. Negative for dizziness, tingling, tremors, sensory jose nge, speech change, focal weakness, seizures, loss of consciousness and headaches. Endo/Heme/Allergies: Negative for environmental allergies and polydipsia. Does not bruise/b leed easily. Psychiatric/Behavioral: Positive for depression. Negative for hallucinations, memory loss, substance abuse and suicidal ideas. The patient is not nervous/anxious and does not have ins omnia. PHYSICAL EXAMINATION: Blood pressure 140/86, pulse 50, height 1.727 m (5' 8"), weight 97.5 kg (215 lb). Body mass index is 32.69 kg/m. Vitals: 09/06/17 1341 BP: 140/86 Pulse: 50 PainSc: PainLoc: GENERAL: The patient is well developed and [...] has no apparent deficits with short or long-term memory. The cranial nerves appear grossly intact. Sensory exam: intact sensation to light touch in the upper extremities. Motor exam demonstrates grossly intact strength to upper and lower extremities DATABASE: Lumbar x-ray competed 05/24/17 demonstrates: prior lumbar fusion L2-S1 with noted probable osseus neural foraminal narrowing at L2-3. ASSESSMENT: 1. Chronic left-sided low back pain with left-sided sciatica 2. Lumbar radiculopathy 3. Sacroiliac joint dysfunction of both sides 4. History of lumbar fusion 5. Failed back surgical syndrome PLAN: 1. Today we discussed Uziel Rea response to recently completed TFESI. Uziel Cisneros ed repots a diagnostically positive and therapeutic response to left L2-L3 transforaminal ep idural steroid injection. Uizel Rea reports he continues to have 80% reduction in p ain. Today we discussed that conservative treatment with left L2-L3 transforaminal epidural mark roid injection is considered a temporary treatment given with the goal of reducing symptoms of pain and radiculopathy. We discussed that the injection will not fix or cure the underlyi ng cause of the pain. The goal of the steroid injection is to minimize swelling and inflamm ation that may be causing symptoms of pain. We discussed that injection may offer 4-6 months of reduced pain, with 4 months being the average. We discussed that a TFESI, if needed, may be repeated up to three times yearly. Uziel Rea will be scheduled to return in 2.5 months to review his continued response . We discussed at this time we can plan to discuss if repeat injections are needed. 2. Today we dicussed Uziel Rea's completed evaluation with Dr. Jessica. Uziel collazo reports that Dr. Jessica recommends treatment with a SI joint RFA. Uziel Rea was advised that this treatment is recommended as well. He was advised to continue his care for SI joints with Dr Jessica. 3. Today Uziel Rea reports having right hand numbness. He reports numbness to the fi rst, second, and third fingers of the right hand. Uziel Rea reports having onset of n ight hand numbness that started approximately one week ago. He reports that the numbness has dissipated. His episode of numbness lasted minutes to hours, but went away the same day it started. We will plan to continue to monitor this symptom. Uziel Rea was advised to contact the office in the future if numbness returns. We discussed future diagnostic testing with a nerve conduction study. Today we dicussed differential diagnosis for this symptom including carpal tunnel and cervi akila radiculopathy 4. Today Uziel Rea's questions if Uziel Rea is a good candidate for use of a diclofenac flector patch. We dicussed that all NSAIDS have increased risk of heart gonsalo ck and GI bleed, although it is potentially less than oral mediations. They may discuss this further with his PCP, Sherie Vela PA-C. 5. Uziel Rea will be scheduled to return to the office in 2.5 moths to review his c ontinues response to TFESI. Will plan to reassess his right hand numbness if it recurs. He should proceed with SI joint RFA with Dr. Jessica. I spent 30 minutes in visit with Uziel Rea today with the majority of time spent cou nselling the patient on his diagnosis, options for his care, and coordinating his care. I, Logan Soto MD personally performed the services described in this documentation, as scribed by in my presence, Petra Prater RN and are both accurate and complete. Logan Soto MD - 09/06/2017 documented in this en counter Plan of Treatment +--------+---------+ + + + | Date | Type | Specialty | Care Team | Description | +--------+---------+ + + + | 12/07/ | Office | Neurology | Abundio Khanna MD | | | 2019 | Visit | | [address] | | | | | | [place] | | | | | | [address] | | | | | | | [...]
--- OUTSIDE RECORDS SUMMARY | ~2019-09-09 | XMS | Encounter Summary ---
Demographics + + + | Address | [address] | | | [place] [address] | + + + | Home Phone [...] + | Organization | [facility] | | | [...] [place], [place] | | | | | [address] | | + + + + + | Mao Rea | ECON | Unknown | | + + + + + | Meredith Rea | ECON | Unknown | | + + + + + | Iqra Medina | ECON | [address] | | | | | [place], [place] | | | | | [address] | | + + + + + | Maldonado Rea | ECON | Unknown | | + + + + + Care Team Providers + +------+ + | Care Recruiter Account Manager Name | Role | Phone | [...] | | | | | | MD ARTHDSIS | | | | | | [...] | | | | | | ION MD INSJ | | | | | | [...] | | | | | | SEG MD | | | | | | | ALLOGRAFT | | | | | | | FOR SPINE | | | | | | | SURGERY ONLY | | | | | | | MORSELIZED | | | | | | | MD REINSERT | | | | | | | SPINAL | | | | | | | FIXATION MD | | | | | | | REINSERT | | | | | | | SPINAL | | | | | | | FIXATION MD | | | | | | | REINSERT | | | | | | | SPINAL | | | | | | | FIXATION MD | | | | | | | INSJ | | | | | | | BIOMCHN DEV | | | | | | | INTERVERTEBR | | | | | | | AL DSC SPC | | | | | | | W/ARTHRD MD | | | | | | | INSJ | | | | | | | BIOMCHN DEV | | | | | | | INTERVERTEBR | | | | | | | AL DSC SPC | | | | | | | W/ARTHRD MD | | | | | | | | | | | | | | LAMINEC/FACE | | | | | | | TECT/FORAMIN | | | | | | | ,EACH ADDNL | | | | | | | MD | | | | | | [...] + + | 02/23/ | Hospital | [facility] | Koby George MD | Gait abnormality | | 2017 - | Encounter | MED CTR SURGICAL | [address] | (Primary Dx) | | | | [address] | [place] [address] | | | 02/26/ | | [place] [address] | [phone] | | | 2016 | | [phone] | | | +--------+ + + + [...] might be differ ent from the original. [facility] NEUROSURGERY DISCHARGE SUMMARY Patient Name: Uziel Rea [...] month post op appointment before your appointment. [id number] [employer]. [address] [place] [address], [place] [address]. All righ ts reserved. This information is [...] PDTPrescriptions given to , to fill at [facility] in [place], patient lives in [place], [place]. Electronically signed by: Kel Doran RN 02/26/2017 8:58 est, Ender Ramos PA-C - 02/25/2017 7:25 AM PDTFormatting of this note might be different from the o riginal. [facility] NEUROSURGERY PROGRESS NOTE PATIENT NAME: Uziel [...] has no apparent deficits with short or chcf memory. MOTOR EXAM: Motor strength is stable [...] Linder PA-C - 02/24/2017 7:25 AM PDT [facility] NEUROSURGERY PROGRESS NOTE PATIENT NAME: Uziel [...] mg 10 mg Intravenous Q1H PRN Ender oMra PA-C lactated ringers (LR) infusion Intravenous Continuous [...] mg 2-4 mg Intravenous Q1H PRN Ender Mroa PA-C 4 mg at 02/24/17 0513 ondansetron [...] has no apparent deficits with short or chcf memory. MOTOR EXAM: Motor strength is stable SENSORY EXAM: Sensory exam is stable 24 HOUR LABS: All Component Based Labs (Last 10 results in the past 24 hours) None ASSESSMENT: NEUROSURGICAL DIAGNOSES: S/p lumbar fusion HOSPITAL/GENERAL DIAGNOSES: Past Medical History Diagnosis Date Depression Arthritis rheumatoid Cancer ([facility]) 2004 colon cancer Anxiety Hypothyroid Hard of hearing bilateral hearing aids Rheumatoid arthritis ([facility]) Tremor Sleep apnea no CPAP Lumbar radiculopathy [...] [place] | | | | | | [id number] | | | | | | | [...] | | Jack[place] | | | n [place] | | | | | | FrameE [...] PDT | | | | | Starting [facility] 02/24/17 at 1401, One | | | [...]
--- OUTSIDE RECORDS SUMMARY | ~2019-09-09 | XMS | Encounter Summary ---
Demographics + + + | Address | [address] | | | [place] [address] | + + + | Home Phone [...] | Organization | [facility] [...] [place], [place] | | | | | [address] | | + + + + + | Mao Rea | ECON | Unknown | | + + + + + | Meredith Rea | ECON | Unknown | | + + + + + | Iqra Medina | ECON | [address] | | | | | [place], [place] | | | | | [address] | | + + + + + | Maldonado Rea | ECON | Unknown | | + + + + + Care Team Providers + +------+ + | Care Primary Substance Abuse Counselor Name | Role | Phone | [...] | | [address] | [place] [address] | | | | | [place] | [phone] | | | | | [address] | | | | | | [phone] | | | +--------+ + + + [...] [place] | | | | | | [id number] | | | | | | | | +--------+---------+ + + + documented as of this encounter Visit Diagnoses Not on filedocumented in this encounter"
--- OUTSIDE RECORDS SUMMARY | ~2019-09-09 | XMS | Encounter Summary ---
Demographics + + + | Address | [address] | | | [place] [address] | + + + | Home Phone [...] Author | [facility] | | | and [place] | + + + | Organization | [facility] | | | and [...] [place], [place] | | | | | [address] | | + + + + + | Mao Rea | ECON | Unknown | | + + + + + | Meredith Rea | ECON | Unknown | | + + + + + | Iqra Medina | ECON | [address] | | | | | [place], [place] | | | | | [address] | | + + + + + | Maldonado Rea | ECON | Unknown | | + + + + + Care Team Providers + +------+ + | Care Embroidery Cutter Name | Role | Phone | + +------+ + | Brandon Juarez MD | PCP | | + +------+ + Encounter Details +--------+ + + + + | Date | Type | Department | Care Team | Description | +--------+ + + + + | 11/27/ | [facility] | [facility] | Koby George MD | Sleep apnea, | | 2015 | Encounter | MED CTR | [address] | obstructive; | | | | ELECTRODIAGNOSTICS | [place] [address] | Essential | | | | [address] | [phone] | hypertension, | | | | [place] [address] | | benign; Fatigue; | | | | [phone] | | Cancer (HCC); | | | [...] [place] | | | | | | [address] | | | | | | | [...] Christopher Alvarado MD - 11/29/2014 7:31 AM [facility] Adult ECG Report | | | [...]
--- OUTSIDE RECORDS SUMMARY | ~2019-09-09 | XMS | Encounter Summary ---
Demographics + + + | Address | [address] | | | [place] [address] | + + + | Home Phone | | + + + | Preferred Language | Unknown | + + + | Marital Status | | + + + | Protestant Affiliation | Unknown | + + + | Race | Unknown | + + + | Ethnic Group | Unknown | + + + Author + + + | Author | [facility] | | | and [place] | + + + | Organization | [facility] | [...] [place], [place] | | | | | [address] | | + + + + + | Mao Rea | ECON | Unknown | | + + + + + | Meredith Rea | ECON | Unknown | | + + + + + | Iqra Medina | ECON | [address] | | | | | [place], [place] | | | | | [address] | | + + + + + | Maldonado Rea | ECON | Unknown | | + + + + + Care Team Providers + +------+ + | Care Cost Specialist Name | Role | Phone | [...] | | [address] | [place] [address] | Appointment) | | | | [place] | [phone] | | | | | [address] | | | | | | [phone] | | | +--------+ + + + [...] [place] | | | | | | [address] | | | | | | | | +--------+---------+ + + + documented as of this encounter Visit Diagnoses Not on filedocumented in this encounter"
--- OUTSIDE RECORDS SUMMARY | ~2019-09-09 | XMS | Encounter Summary ---
Demographics + + + | Address | [address] | | | [place] [address] | + + + | Home Phone [...] | Organization | [facility] | | | and [...] [place], [place] | | | | | [address] | | + + + + + | Mao Rea | ECON | Unknown | | + + + + + | Meredith Rea | ECON | Unknown | | + + + + + | Iqra Medina | ECON | [address] | | | | | [place], [place] | | | | | [address] | | + + + + + | Maldonado Rea | ECON | Unknown | | + + + + + Care Team Providers + +------+ + | Care Trading Analyst Name | Role | Phone | + +------+ + | Brandon Juarez MD | PCP | | + +------+ + Encounter Details +--------+ + + + + | Date | Type | Department | Care Team | Description | +--------+ + + + + | 02/18/ | Preadmit | [facility] | Koby George MD | Pre-operative | | 2017 | Visit | MED CTR PREADMIT | [address] | clearance (Primary | | | | CLINIC [address] | [place] [address] | Dx); Lumbar | | | | [place] | [phone] | radiculopathy; | | | | [address] | | Pseudoarthrosis of | | | [...] [place] | | | | | | [address] | | | | | | | [...] [address] | [place] | [phone] | | [facility] | | [address] | | | - LABORATORY | | [...] 107 | 70 - 109 mg/dL | [facility] | | | | | | [facility] | | | | | | MEDICAL | | | | | | CENTER - | | | | | | LABORATORY | | + + + + + + | BUN | 10 | 7 - 18 mg/dL | [facility] | | | | | | [facility] | | | | | | MEDICAL | | | | | | CENTER - | | | | | | LABORATORY | | + + + + + + | Creatinine | 0.75 | 0.60 - 1.30 | [facility] | | | | | mg/dL | [facility] | | | | | | MEDICAL | | | | | | CENTER - | | | | | | LABORATORY | | + + + + + + | eGFR if not | >60Comment: GLOMERULAR | >=60 | KEVIN | | | | FILTRATION | mL/min/1.73m2 | [facility] | | | [facility] | RATE,ESTIMATED | | MEDICAL | | | | mL/min/1.27t8Rvzw than | | CENTER - | | [...] [address] | [place] | [phone] | | [facility] | | [address] | | | - LABORATORY | | [...] [address] | [place] | [phone] | | [facility] | | [address] | | | - LABORATORY | | [...] | | | | JUAN SALDIVAR MD ([id number]) | | | | | | on [...]
--- OUTSIDE RECORDS SUMMARY | ~2019-09-09 | XMS | Encounter Summary ---
Demographics + + + | Address | [address] | | | [place] [address] | + + + | Home Phone [...] | Organization | [facility] | | | [...] [place], [place] | | | | | [address] | | + + + + + | Mao Rea | ECON | Unknown | | + + + + + | Meredith Rea | ECON | Unknown | | + + + + + | Iqra Medina | ECON | [address] | | | | | [place], [place] | | | | | [address] | | + + + + + | Maldonado Rea | ECON | Unknown | | + + + + + Care Team Providers + +------+ + | Care Groundwater Consultant Name | Role | Phone | + +------+ + | Brandon Juarez MD | PCP | | + +------+ + Encounter Details +--------+ + + + + | Date | Type | Department | Care Team | Description | +--------+ + + + + | 07/06/ | Orders Only | [facility] [place] | Luis Carlos Jiménez | Lumbar radiculopathy | | 2015 | | PHYSIATRY [address] | TMD [address] | (Primary Dx) | | | | [place], | [address] [place] [address] | | | | | [place] [address] | [address] | | | | | [phone] | | | +--------+ + + + [...] [place] | | | | | | [address] | | | | | | | [...] | | Lumbar radiculopathy ICD-10 Code M54.16 Uzielnolan Rosen Rona | [facility] | | presents to the fluoroscopy suite for a fluoroscopically-guided [facility] | | L5-S1 transforaminal epidural steroid injection [...] + + | Performing | Address | City[facility] | Phone Number | | Organization | | | | + + + + + | [facility] | [address] | [place], [place] | [phone] | | [facility] | | [address] | | | - IMAGING | | | | + + + + + documented in this encounter Visit Diagnoses + + | Diagnosis | + + | Lumbar radiculopathy - Primary Thoracic or lumbosacral neuritis or radiculitis, | | unspecified | + + documented in this encounter"
--- OUTSIDE RECORDS SUMMARY | ~2019-09-09 | XMS | Encounter Summary ---
Demographics + + + | Address | [address] | | | [place] [address] | + + + | Home Phone | | + + + | Preferred Language | Unknown | + + + | Marital Status | | + + + | Sabianist Affiliation | Unknown | + + + | Race | Unknown | + + + | Ethnic Group | Unknown | + + + Author + + + | Author | [facility] | | | and [place] | + + + | Organization | [facility] | | | and [place] [...] [place], [place] | | | | | [address] | | + + + + + | Mao Rea | ECON | Unknown | | + + + + + | Meredith Rea | ECON | Unknown | | + + + + + | Iqra Medina | ECON | [address] | | | | | [place], [place] | | | | | [address] | | + + + + + | Maldonado Rea | ECON | Unknown | | + + + + + Care Team Providers + +------+ + | Care Milk Receiver Name | Role | Phone | + [...] | | [address] | [place] [address] | | | | | [place] | [phone] | | | | | [address] | | | | | | [phone] | | | +--------+ + + + [...] [place] | | | | | | [address] | | | | | | | | +--------+---------+ + + + documented as of this encounter Visit Diagnoses Not on filedocumented in this encounter"
--- OUTSIDE RECORDS SUMMARY | ~2019-09-09 | XMS | Encounter Summary ---
Demographics + + + | Address | [address] | | | [place] [address] | + + + | Home Phone [...] + | Author | [facility] | | | and [place] | + + + | Organization | [facility] | | | and [...] [place], [place] | | | | | [address] | | + + + + + | Mao Rea | ECON | Unknown | | + + + + + | Meredith Rea | ECON | Unknown | | + + + + + | Iqra Medina | ECON | [address] | | | | | [place], [place] | | | | | [address] | | + + + + + | Maldonado Rea | ECON | Unknown | | + + + + + Care Team Providers + +------+ + | Care Residential Concierge Name | Role | Phone | + [...] [address] | | | | | [place], [place] | [place], [place] | | | | | [address] | [address] | | | | | [phone] | | | +--------+ + + + [...] [place] | | | | | | [address] | | | | | | | | +--------+---------+ + + + documented as of this encounter Visit Diagnoses Not on filedocumented in this encounter"
--- OUTSIDE RECORDS SUMMARY | ~2019-09-09 | XMS | Encounter Summary ---
Demographics + + + | Address | [address] | | | [place] [address] | + + + | Home Phone [...] Organization | [facility] | | | and [place] | + + + | Address | Unknown | + + + | Phone | Unavailable | + + + Support + + + + + | Name | Relationship | Address | Phone | + + + + + | Henny Rea | ECON | [address] | | | | | [place], [place] | | | | | [address] | | + + + + + | Mao Rea | ECON | Unknown | | + + + + + | Meredith Rea | ECON | Unknown | | + + + + + | Iqra Medina | ECON | [address] | | | | | [place], [place] | | | | | [address] | | + + + + + | Maldonado Rea | ECON | Unknown | | + + + + + Care Team Providers + +------+ + | Care Assembler Wire Mesh Gate Name | Role | Phone | + [...] [address] | | | | | [place], [place] | [place], [place] | | | | | [address] | [address] | | | | | [phone] | | | +--------+ + + + [...] [place] | | | | | | [address] | | | | | | | | +--------+---------+ + + + documented as of this encounter Visit Diagnoses + + | Diagnosis | + + | S/P lumbar fusion - Primary Arthrodesis status | + + documented in this encounter"
--- OUTSIDE RECORDS SUMMARY | ~2019-09-09 | XMS | Encounter Summary ---
Demographics + + + | Address | [address] | | | [place] [address] | + + + | Home Phone | | + + + | Preferred Language | Unknown | + + + | Marital Status | | + + + | Caodaism Affiliation | Unknown | + + + | Race | Unknown | + + + | Ethnic Group | Unknown | + + + Author + + + | Author | [facility] | | | and [place] | + + + | Organization | [facility] | | | and [place] [...] [place], [place] | | | | | [address] | | + + + + + | Mao Rea | ECON | Unknown | | + + + + + | Meredith Rea | ECON | Unknown | | + + + + + | Iqra Medina | ECON | [address] | | | | | [place], [place] | | | | | [address] | | + + + + + | Maldonado Rea | ECON | Unknown | | + + + + + Care Team Providers + +------+ + | Care Fresh Foods Cake Decorator Name | Role | Phone | + [...] | | [address] | [place] [address] | Dx); Essential | | | | [place] | [phone] | hypertension, | | | | [address] | | benign; Fatigue; | | | | [phone] | | Cancer (HCC); | | | [...] [place] | | | | | | [address] | | | | | | | [...] Christopher Alvarado MD - 11/29/2014 7:31 AM [facility] Adult ECG Report | | | | Name: Uziel Rea | | Age: 69 y.o. | | Gender: male | | | | 11/27/14 at 9:12 | | Narrative Interpretation: Sinus bradycardia. Normal axis. Normal intervals. | + + XR Chest PA and Lateral (11/27/2014 9:36 AM [facility]) + + [...] + | MISCELLANEOUS LAB | | | [phone] | + +---------+ + + | MISCELANIOUS LAB | | | [phone] | + +---------+ + + CBC with [...] [address] | [place] | [phone] | | [facility] | | [address] | | | - LABORATORY | | | | + + + + + | [facility] | [address] | [place] | | | [facility] | | [address] | | | - LABORATORY | | [...] mL/min/1.73m2 | [facility] | | | [place] | RATE,ESTIMATED | | MEDICAL | | | | mL/min/1.90q4Klev than | | CENTER - | | [...] + | [facility] | [address] | [place], [place] | [phone] | | [facility] | | [address] | | | - LABORATORY | | | | + + + + + | [facility] | [address] | [place], [place] | | | [facility] | | [address] | | | - LABORATORY | | [...]
--- OUTSIDE RECORDS SUMMARY | ~2019-09-09 | XMS | Encounter Summary ---
Demographics + + + | Address | [address] | | | [place] [address] | + + + | Home Phone | | + + + | Preferred Language | Unknown | + + + | Marital Status | | + + + | Yazdanism Affiliation | Unknown | + + + | Race | Unknown | + + + | Ethnic Group | Unknown | + + + Author + + + | Author | [facility] | | | and [place] | + + + | Organization | [facility] [...] [place], [place] | | | | | [address] | | + + + + + | Mao Rea | ECON | Unknown | | + + + + + | Meredith Rea | ECON | Unknown | | + + + + + | Iqra Medina | ECON | [address] | | | | | [place], [place] | | | | | [address] | | + + + + + | Maldonado Rea | ECON | Unknown | | + + + + + Care Team Providers + +------+ + | Care Agriculture Manager Name | Role | Phone | [...] 2018 | | [facility] [place] | [address] [facility] | | | | | [address], | [place] [address] | | | | | [address] [place] | [place] | | | | | [place] [address] | [address] | | | | | [phone] | | | +--------+ + + + [...] [place] | | | | | | [address] | | | | | | | | +--------+---------+ + + + documented as of this encounter Visit Diagnoses Not on filedocumented in this encounter"
--- OUTSIDE RECORDS SUMMARY | ~2019-09-09 | XMS | Encounter Summary ---
Demographics + + + | Address | [address] | | | [place] [address] | + + + | Home Phone | | + + + | Preferred Language | Unknown | + + + | Marital Status | | + + + | Temple Affiliation | Unknown | + + + | Race | Unknown | + + + | Ethnic Group | Unknown | + + + Author + + + | Author | [facility] | | | and [place] | + + + | Organization | [facility] | | | and [place] [...] [place], [place] | | | | | [address] | | + + + + + | Mao Rea | ECON | Unknown | | + + + + + | Meredith Rea | ECON | Unknown | | + + + + + | Iqra Medina | ECON | [address] | | | | | [place], [place] | | | | | [address] | | + + + + + | Maldonado Rea | ECON | Unknown | | + + + + + Care Team Providers + +------+ + | Care Salad Chef Name | Role | Phone | + [...] | (Primary Dx) | | | | [address] [place], | [address] [place] [address] | | | | | [place] [address] | [address] | | | | | [phone] | | | +--------+ + + + [...] [place] | | | | | | [address] | | | | | | | [...] Code M54.16 Uzielnolan Rosen Rona | [facility] | | presents to the fluoroscopy suite for a fluoroscopically-guided [facility] | | L5-S1 transforaminal epidural [...] + | [facility] | [address] | [place], [place] | [phone] | | [facility] | | [address] | | | - IMAGING | | | | + + + + + documented in this encounter Visit Diagnoses + + | Diagnosis | + + | Lumbar radiculopathy - Primary Thoracic or lumbosacral neuritis or radiculitis, | | unspecified | + + documented in this encounter"
--- OUTSIDE RECORDS SUMMARY | ~2019-09-09 | XMS | Encounter Summary ---
Demographics + + + | Address | [address] | | | [place] [address] | + + + | Home Phone | | + + + | Preferred Language | Unknown | + + + | Marital Status | | + + + | Synagogue Affiliation | Unknown | + + + | Race | Unknown | + + + | Ethnic Group | Unknown | + + + Author + + + | Author | [facility] | | | and [place] | + + + | Organization | [facility] [...] [place], [place] | | | | | [address] | | + + + + + | Mao Rea | ECON | Unknown | | + + + + + | Meredith Rea | ECON | Unknown | | + + + + + | Iqra Medina | ECON | [address] | | | | | [place], [place] | | | | | [address] | | + + + + + | Maldonado Rea | ECON | Unknown | | + + + + + Care Team Providers + +------+ + | Care Bilingual Speech Language Pathologist Name | Role | Phone | + [...] [place] | | | | | | [address] | [address] Phone: | | | | | | Phone: | [phone] | | | | | | [phone] | Fax: | | | | | | Fax: | [phone] | | | | | | [phone] | | +--------+ + + + + [...] 2018 | | [facility] [place] | [address] [facility] | | | | | [address] [facility], | [place] [address] | | | | | [address] [place] | [place] | | | | | [place] [address] | [address] | | | | | [phone] | | | +--------+ + + + [...] [place] | | | | | | [address] | | | | | | | [...] | apnea of adult | | | [facility] | | | | | | Transfer | | | | | + + +--------+ + + documented as of this encounter Visit Diagnoses + + | Diagnosis | + + | Obstructive sleep apnea of adult - Primary Obstructive sleep apnea (adult) | | (pediatric) | + + documented in this encounter"
--- OUTSIDE RECORDS SUMMARY | ~2019-09-09 | XMS | Encounter Summary ---
Demographics + + + | Address | [address] | | | [place] [address] | + + + | Home Phone [...] + | Organization | [facility] [...] [place], [place] | | | | | [address] | | + + + + + | Mao Rea | ECON | Unknown | | + + + + + | Meredith Rea | ECON | Unknown | | + + + + + | Iqra Medina | ECON | [address] | | | | | [place], [place] | | | | | [address] | | + + + + + | Maldonado Rea | ECON | Unknown | | + + + + + Care Team Providers + +------+ + | Care Flat Machine Cutter Name | Role | Phone | + +------+ + PCP | Unavailable | + +------+ + Encounter Details +--------+ + + + + | Date | Type | Department | Care Team | Description | +--------+ + + + + | 06/13/ | Hospital | [facility] | | | | 1994 | Encounter | MED CTR XRAY [address] | | | | | | [address] | | | | | | [place] [address] | | | | | | [phone] | | | +--------+ + + + [...]
--- OUTSIDE RECORDS SUMMARY | ~2019-09-09 | XMS | Encounter Summary ---
Demographics + + + | Address | [address] | | | [place] [address] | + + + | Home Phone | | + + + | Preferred Language | Unknown | + + + | Marital Status | | + + + | Temple Affiliation | Unknown | + + + | Race | Unknown | + + + | Ethnic Group | Unknown | + + + Author + + + | Author | [facility] | | | and [place] | + + + | Organization | [facility] [...] [place], [place] | | | | | [address] | | + + + + + | Mao Rea | ECON | Unknown | | + + + + + | Meredith Rea | ECON | Unknown | | + + + + + | Iqra Medina | ECON | [address] | | | | | [place], [place] | | | | | [address] | | + + + + + | Maldonado Rea | ECON | Unknown | | + + + + + Care Team Providers + +------+ + | Care Children'S Court Magistrate Name | Role | Phone | + +------+ + | Sherie Vela PA-C | PCP | | + +------+ + Reason for Visit +--------+ + | Reason | Comments | +--------+ + | Device | | +--------+ + Encounter Details +--------+ + + + + | Date | Type | Department | Care Team | Description | +--------+ + + + + | 02/20/ | Telephone | [facility] [place] | Koby George MD | Device | | 2017 | | NEUROSURGERY [address] | [address] | | | | | [address] | [place] [address] | | | | | [place] | [phone] | | | | | [address] | | | | | | [phone] | | | +--------+ + + + [...] [place] | | | | | | [address] | | | | | | | | +--------+---------+ + + + documented as of this encounter Visit Diagnoses Not on filedocumented in this encounter"
--- OUTSIDE RECORDS SUMMARY | ~2019-09-09 | XMS | Encounter Summary ---
Demographics + + + | Address | [address] | | | [place] [address] | + + + | Home Phone [...] | Organization | [facility] | [...] [place], [place] | | | | | [address] | | + + + + + | Mao Rea | ECON | Unknown | | + + + + + | Meredith Rea | ECON | Unknown | | + + + + + | Iqra Medina | ECON | [address] | | | | | [place], [place] | | | | | [address] | | + + + + + | Maldonado Rea | ECON | Unknown | | + + + + + Care Team Providers + +------+ + | Care Aircraft Electrical Systems Specialist Name | Role | Phone | [...] | Logan Rios MD | [address] | | | | | Lumbar | [address] | [place], | | | | | radiculopath | [address] | [place] | | | | | y Lumbar | [place], | [address] | | | | | spondylosis | [place] [address] | Phone: | | | | | Left leg | Phone: | [phone] | | | | | weakness | [phone] | Fax: | | | | | Lower | Fax: | [phone] | | | | | extremity | [phone] | | | | | | numbness [...] | Logan Rios MD | [address] | | | | | Lumbar | [address] | [place], | | | | | radiculopath | [address] | [place] | | | | | y Lumbar | [place], | [address] | | | | | spondylosis | [place] [address] | Phone: | | | | | Left leg | Phone: | [phone] | | | | | weakness | [phone] | Fax: | | | | | Lower | Fax: | [phone] | | | | | extremity | [phone] | | | | | | numbness [...] + + | 06/26/ | Hospital | [facility] | Logan Soto, | Lumbalgia; Lumbar | | 2013 | Encounter | MED CTR MRI [address] | MD [address] | radiculopathy; | | | | [address] [place], | [place], [place] | Lumbar spondylosis; | | | | [place] [address] | [address] | Left leg weakness; | | | | [phone] | | Lower extremity | | | [...] [place] | | | | | | [address] | | | | | | | [...] + | MISCELLANEOUS LAB | | | [phone] | + +---------+ + + | LINO HODGE | | | [phone] | + +---------+ + + documented in [...]
--- OUTSIDE RECORDS SUMMARY | ~2019-09-09 | XMS | Encounter Summary ---
Demographics + + + | Address | [address] | | | [place] [address] | + + + | Home Phone | | + + + | Preferred Language | Unknown | + + + | Marital Status | | + + + | Evangelical Affiliation | Unknown | + + + | Race | Unknown | + + + | Ethnic Group | Unknown | + + + Author + + + | Author | [facility] | | | and [place] | + + + | Organization | [facility] | | | and [place] | [...] [place], [place] | | | | | [address] | | + + + + + | Mao Rea | ECON | Unknown | | + + + + + | Meredith Rea | ECON | Unknown | | + + + + + | Iqra Medina | ECON | [address] | | | | | [place], [place] | | | | | [address] | | + + + + + | Maldonado Rea | ECON | Unknown | | + + + + + Care Team Providers + +------+ + | Care Office Messenger Name | Role | Phone | + [...] | | [address] | [place] [address] | | | | | [place] | [phone] | | | | | [address] | | | | | | [phone] | | | +--------+--------+ + + + [...] [place] | | | | | | [address] | | | | | | | | +--------+---------+ + + + documented as of this encounter Visit Diagnoses + + | Diagnosis | + + | S/P lumbar fusion Arthrodesis status | + + documented in this encounter"
--- OUTSIDE RECORDS SUMMARY | ~2019-09-09 | XMS | Encounter Summary ---
Demographics + + + | Address | [address] | | | [place] [address] | + + + | Home Phone [...] | [facility] | | [...] [place], [place] | | | | | [address] | | + + + + + | Mao Rea | ECON | Unknown | | + + + + + | Meredith Rea | ECON | Unknown | | + + + + + | Iqra Medina | ECON | [address] | | | | | [place], [place] | | | | | [address] | | + + + + + | Maldonado Rea | ECON | Unknown | | + + + + + Care Team Providers + +------+ + | Care Automatic Hemmer Name | Role | Phone | [...] | Records | | | | [address], | [place] [address] | | | | | [address] [place] | [place] | | | | | [place] [address] | [address] | | | | | [phone] | | | +--------+ + + + [...] [place] | | | | | | [address] | | | | | | | | +--------+---------+ + + + documented as of this encounter Visit Diagnoses Not on filedocumented in this encounter"
--- OUTSIDE RECORDS SUMMARY | ~2019-09-09 | XMS | Encounter Summary ---
Demographics + + + | Address | [address] | | | [place] [address] | + + + | Home Phone | | + + + | Preferred Language | Unknown | + + + | Marital Status | | + + + | Moravian Affiliation | Unknown | + + + | Race | Unknown | + + + | Ethnic Group | Unknown | + + + Author + + + | Author | [facility] | | | and [place] | + + + | Organization | [facility] | | | and [place] [...] [place], [place] | | | | | [address] | | + + + + + | Mao Rea | ECON | Unknown | | + + + + + | Meredith Rea | ECON | Unknown | | + + + + + | Iqra Medina | ECON | [address] | | | | | [place], [place] | | | | | [address] | | + + + + + | Maldonado Rea | ECON | Unknown | | + + + + + Care Team Providers + +------+ + | Care Plate Stacker Hand Name | Role | Phone | [...] [place] | | | | | [address] | [address] | | | | | [phone] | | | +--------+ + + + [...] [place] | | | | | | [address] | | | | | | | [...] + + | Performing | Address | City/State[facility] | Phone Number | | Organization | | | | + + + + + | [facility] | [address] | [place] | [phone] | | [facility] | | [address] | | | - IMAGING | | | | + + + + + documented in this encounter Visit Diagnoses + + | Diagnosis | + + | S/P lumbar fusion - Primary Arthrodesis status | + + documented in this encounter"
--- OUTSIDE RECORDS SUMMARY | ~2019-09-09 | XMS | Encounter Summary ---
Demographics + + + | Address | [address] | | | [place] [address] | + + + | Home Phone [...] + + | Author | [facility] | | | and [...] [place], [place] | | | | | [address] | | + + + + + | Mao Rea | ECON | Unknown | | + + + + + | Meredith Rea | ECON | Unknown | | + + + + + | Iqra Medina | ECON | [address] | | | | | [place], [place] | | | | | [address] | | + + + + + | Maldonado Rea | ECON | Unknown | | + + + + + Care Team Providers + +------+ + | Care Leather Colorer Name | Role | Phone | + [...] | | [address] | [place] [address] | INSTRUCTIONS) | | | | [place], [place] | [phone] | | | | | [address] | | | | | | [phone] | | | +--------+ + + + [...] [place] | | | | | | [address] | | | | | | | | +--------+---------+ + + + documented as of this encounter Visit Diagnoses Not on filedocumented in this encounter"
--- OUTSIDE RECORDS SUMMARY | ~2019-09-09 | XMS | Encounter Summary ---
Demographics + + + | Address | [address] | | | [place] [address] | + + + | Home Phone [...] + | Organization | [facility] | [...] [place], [place] | | | | | [address] | | + + + + + | Mao Rea | ECON | Unknown | | + + + + + | Meredith Rea | ECON | Unknown | | + + + + + | Iqra Medina | ECON | [address] | | | | | [place], [place] | | | | | [address] | | + + + + + | Maldonado Rea | ECON | Unknown | | + + + + + Care Team Providers + +------+ + | Care Mill Roll Operator Name | Role | Phone | + +------+ + | Brandon Juarez MD | PCP | | + +------+ + Encounter Details +--------+ + + + + | Date | Type | Department | Care Team | Description | +--------+ + + + + | 03/08/ | [facility] | [facility] | Koby George MD | S/P lumbar fusion | | 2017 | Encounter | MED CTR XRAY [address] | [address] | | | | | [address] | [place] [address] | | | | | [place] [address] | [phone] | | | | | [phone] | | | +--------+ + + + [...] [place] | | | | | | [address] | | | | | | | [...] posterior fusion from L2 through the | [facility] | | SI joints with spacer [...] [address] | [place] | [phone] | | [facility] | | [address] | | | - IMAGING | | | | + + + + + documented in this encounter Visit Diagnoses + + | Diagnosis | + + | S/P lumbar fusion Arthrodesis status | + + documented in this encounter"
--- OUTSIDE RECORDS SUMMARY | ~2019-09-09 | XMS | Encounter Summary ---
Demographics + + + | Address | [address] | | | [place] [address] | + + + | Home Phone [...] | Organization | [facility] | | [...] [place], [place] | | | | | [address] | | + + + + + | Mao Rea | ECON | Unknown | | + + + + + | Meredith Rea | ECON | Unknown | | + + + + + | Iqra Medina | ECON | [address] | | | | | [place], [place] | | | | | [address] | | + + + + + | Maldonado Rea | ECON | Unknown | | + + + + + Care Team Providers + +------+ + | Care Senior Staff Psychologist Name | Role | Phone | [...] | fusion | VIRY Ramos | [address] | | | | n | 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[place], | | | | | sis of | [address] | [place] [address] | | | | | lumbar spine | [address] | Phone: | | | | | Flat back | [place], | [phone] | | | | | syndrome | [place] [address] | Fax: | | | | | Lumbar | Phone: | [phone] | | | | | stenosis | [phone] | | | | | | with | Fax: | | | | | | neurogenic | [phone] | | | | | | claudication [...] + + | 05/25/ | Office | [facility] | Ender Mora | S/P lumbar fusion | | 2017 | Visit | NEUROSURGERY [address] | [place] [address] | (Primary Dx); | | | | [address] | [address] | 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 Ender Mora PA-C [address] [address] FAX: NEUROSURGERY FOLLOW-UP CHIEF COMPLAINT: Chief Complaint [...] Dr. Jiménez. 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
--- OUTSIDE RECORDS SUMMARY | ~2019-09-09 | XMS | Encounter Summary ---
Demographics + + + | Address | [address] | | | [place] [address] | + + + | Home Phone | | + + + | Preferred Language | Unknown | + + + | Marital Status | | + + + | Yazidi Affiliation | Unknown | + + + | Race | Unknown | + + + | Ethnic Group | Unknown | + + + Author + + + | Author | [facility] | | | and Carlosana | + + + | Organization | [facility] | | | and Carlosana [...] [place], [place] | | | | | [address] | | + + + + + | Mao Rea | ECON | Unknown | | + + + + + | Meredith Rea | ECON | Unknown | | + + + + + | Iqra Medina | ECON | [address] | | | | | [place], [place] | | | | | [address] | | + + + + + | Maldonado Rea | ECON | Unknown | | + + + + + Care Team Providers + +------+ + | Care Sales Porter Name | Role | Phone | + [...] | | | | | [place] [address] | [address] | | | | | [phone] | | | +--------+ + + + [...] [place] | | | | | | [address] | | | | | | | | +--------+---------+ + + + documented as of this encounter Visit Diagnoses Not on filedocumented in this encounter"
--- OUTSIDE RECORDS SUMMARY | ~2019-09-09 | XMS | Encounter Summary ---
Demographics + + + | Address | [address] | | | [place] [address] | + + + | Home Phone [...] | Organization | [facility] | [...] [place], [place] | | | | | [address] | | + + + + + | Mao Rea | ECON | Unknown | | + + + + + | Meredith Rea | ECON | Unknown | | + + + + + | Iqra Medina | ECON | [address] | | | | | [place], [place] | | | | | [address] | | + + + + + | Maldonado Rea | ECON | Unknown | | + + + + + Care Team Providers + +------+ + | Care Shook Machine Operator Name | Role | Phone | + +------+ + | Brandon Juarez MD | PCP | | + +------+ + Encounter Details +--------+ + + + + | Date | Type | Department | Care Team | Description | +--------+ + + + + | 11/27/ | Hospital | [facility] | Koby George MD | | | 2014 | Encounter | MED CTR XRAY [address] | [address] | | | | | [place] | [place] [address] | | | | | [place] [address] | [phone] | | | | | [phone] | | | +--------+ + + + [...] [place] | | | | | | [address] | | | | | | | [...] + | MISCELLANEOUS LAB | | | [phone] | + +---------+ + + | MISCELANIOUS LAB | | | [phone] | + +---------+ + + documented in this encounter Visit Diagnoses Not on filedocumented in this encounter"
--- OUTSIDE RECORDS SUMMARY | ~2019-09-09 | XMS | Encounter Summary ---
Demographics + + + | Address | [address] | | | [place] [address] | + + + | Home Phone [...] + | Organization | [facility] | | | and [place]ana [...] [place], [place] | | | | | [address] | | + + + + + | Mao Rea | ECON | Unknown | | + + + + + | Meredith Rea | ECON | Unknown | | + + + + + | Iqra Medina | ECON | [address] | | | | | [place], [place] | | | | | [address] | | + + + + + | Maldonado Rea | ECON | Unknown | | + + + + + Care Team Providers + +------+ + | Care Cloth Mercerizer Operator Name | Role | Phone | [...] [address] | | | | | [place], [place] | [place], [place] | | | | | [address] | [address] | | | | | [phone] | | | +--------+ + + + [...] [place] | | | | | | [address] | | | | | | | | +--------+---------+ + + + documented as of this encounter Visit Diagnoses Not on filedocumented in this encounter"
--- OUTSIDE RECORDS SUMMARY | ~2019-09-09 | XMS | Encounter Summary ---
Demographics + + + | Address | [address] | | | [place] [address] | + + + | Home Phone | | + + + | Preferred Language | Unknown | + + + | Marital Status | | + + + | Quaker Affiliation | Unknown | + + + | Race | Unknown | + + + | Ethnic Group | Unknown | + + + Author + + + | Author | [facility] | | | and [place] | + + + | Organization | [facility] | | | and [...] [place], [place] | | | | | [address] | | + + + + + | Mao Rea | ECON | Unknown | | + + + + + | Meredith Rea | ECON | Unknown | | + + + + + | Iqra Medina | ECON | [address] | | | | | [place], [place] | | | | | [address] | | + + + + + | Maldonado Rea | ECON | Unknown | | + + + + + Care Team Providers + +------+ + | Care Display Decorator Name | Role | Phone | [...] | | [address] | [place] [address] | | | | | [place] | [phone] | | | | | [address] | | | | | | [phone] | | | +--------+ + + + [...] [place] | | | | | | [address] | | | | | | | | +--------+---------+ + + + documented as of this encounter Visit Diagnoses Not on filedocumented in this encounter"
--- OUTSIDE RECORDS SUMMARY | ~2019-09-09 | XMS | Encounter Summary ---
Demographics + + + | Address | [address] | | | [place] [address] | + + + | Home Phone [...] | Organization | [facility] | [...] [place], [place] | | | | | [address] | | + + + + + | Mao Rea | ECON | Unknown | | + + + + + | Meredith Rea | ECON | Unknown | | + + + + + | Iqra Medina | ECON | [address] | | | | | [place], [place] | | | | | [address] | | + + + + + | Maldonado Rea | ECON | Unknown | | + + + + + Care Team Providers + +------+ + | Care Healthcare Marketer Name | Role | Phone | + [...] | SLEEP DISORDER [address] | MD [address] [facility] | | | | | [address] [place] | [place] | | | | | [place] [address] | [place] | | | | | [phone] | [address] | | | | | | | [...] [place] | | | | | | [address] | | | | | | | | +--------+---------+ + + + documented as of this encounter Visit Diagnoses Not on filedocumented in this encounter"
--- OUTSIDE RECORDS SUMMARY | ~2019-09-09 | XMS | Encounter Summary ---
Demographics + + + | Address | [address] | | | [place] [address] | + + + | Home Phone [...] | Organization | [facility] | [...] [place], [place] | | | | | [address] | | + + + + + | Mao Rea | ECON | Unknown | | + + + + + | Meredith Rea | ECON | Unknown | | + + + + + | Iqra Medina | ECON | [address] | | | | | [place], [place] | | | | | [address] | | + + + + + | Maldonado Rea | ECON | Unknown | | + + + + + Care Team Providers + +------+ + | Care Stem Sizer Name | Role | Phone | + [...] | | [address] | [place] [address] | | | | | [place] | [phone] | | | | | [address] | | | | | | [phone] | | | +--------+ + + + [...] [place] | | | | | | [address] | | | | | | | | +--------+---------+ + + + documented as of this encounter Visit Diagnoses Not on filedocumented in this encounter"
--- OUTSIDE RECORDS SUMMARY | ~2019-09-09 | XMS | Encounter Summary ---
Demographics + + + | Address | [address] | | | [place] [address] | + + + | Home Phone | | + + + | Preferred Language | Unknown | + + + | Marital Status | | + + + | Orthodox Affiliation | Unknown | + + + | Race | Unknown | + + + | Ethnic Group | Unknown | + + + Author + + + | Author | [facility] | | | and [place] | + + + | Organization | [facility] | | | and [place]ana [...] [place], [place] | | | | | [address] | | + + + + + | Mao Rea | ECON | Unknown | | + + + + + | Meredith Rea | ECON | Unknown | | + + + + + | Iqra Medina | ECON | [address] | | | | | [place], [place] | | | | | [address] | | + + + + + | Maldonado Rea | ECON | Unknown | | + + + + + Care Team Providers + +------+ + | Care Cnc Machinist 2Nd Shift Name | Role | Phone | + [...] | 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 DOM Sampson [address] [place] [address], [address] [place], [place] [address] FAX: NEUROSURGERY FOLLOW-UP CHIEF COMPLAINT: Chief Complaint [...] aterality: N/A; Surgeon: Koby George MD; Location: [facility] MAIN OR CURRENT MEDICATIONS: Current Outpatient [...] | [facility] | [address] | [place], [place] | [phone] | | [facility] | | [address] | | | - IMAGING | | [...]
--- OUTSIDE RECORDS SUMMARY | ~2019-09-09 | XMS | Encounter Summary ---
Demographics + + + | Address | [address] | | | [place] [address] | + + + | Home Phone [...] | Organization | [facility] [...] [place], [place] | | | | | [address] | | + + + + + | Mao Rea | ECON | Unknown | | + + + + + | Meredith Rea | ECON | Unknown | | + + + + + | Iqra Medina | ECON | [address] | | | | | [place], [place] | | | | | [address] | | + + + + + | Maldonado Rea | ECON | Unknown | | + + + + + Care Team Providers + +------+ + | Care Mop Worker Name | Role | Phone | [...] | | | | | stenosis | [address] | [place], [place] | | | | | Lumbalgia | [place], | [address] | | | | | Lumbar | [place] [address] | Phone: | | | | | degenerative | Phone: | [phone] | | | | | disc | [phone] | Fax: | | | | | disease | Fax: | [phone] | | | | | Lumbar facet | [phone] | | | | | | arthropathy | | | | | | | Procedures | | | | | | | [place] OFFICE | | | | | | [...] | | | | | stenosis | [address] | | | | | | Lumbalgia | [place], | | | | | | Lumbar | [place] [address] | | | | | | degenerative | Phone: | | | | | | disc | [phone] | | | | | | disease | Fax: | | | | | | Procedures | [phone] | | | | | | CT [...] PHYSIATRY [address] | MD [address] | stenosis (Primary | | | | [address], | [place], [place] | Dx); Lumbalgia; | | | | [place] [address] | [address] | Lumbar degenerative | | | | [phone] | | disc disease; Lumbar | | | | | | facet arthropathy; | | | | | | Rheumatoid arthritis | | | | | | ([facility]); Marijuana | | | | | | [...] office note has been dictated. Job ID# [id number] signed by Logan Soto MD at 06/28/2014 1:52 PM Citlalli Pendleton RN - 06/28/2014 9:08 AM PDTC/o lower back and left leg pain, rated 7-8/10. Here to review M RI and x-rays. Linda Betts MD - 06/28/2014 12:00 AM PDT [facility] [address] [place] [address] FAX: [phone] OFFICE VISIT PHYSICAL MEDICINE REHABILITATION PROGRESS NOTE [...] and reviewed in detail with Mr. Marisol umrphy. This imaging demonstrates severe central canal stenosis [...] Arava 10 mg daily. 13. Lisinopril. 14. Lisco. 15. Loratadine. 16. Cannabis inhaled daily. 17. [...] short-term benefit. Approximately 30 minutes was spent crvw-ag-zqie today with Mr. Rea, over half of which w as spent formulating and discussing his medical treatment plan. Thank you for allowing me t o be involved in the care of your patient. If you have any questions regarding the care of Mr. Rea please do not hesitate to call. Logan Soto Jr, MD BARAK / CHARLEE JOB #: [id number] cc: Brandon Juarez MD A M PDTdocumented [...] [place] | | | | | | [id number] | | | | | | | [...]
--- OUTSIDE RECORDS SUMMARY | ~2019-09-09 | XMS | Encounter Summary ---
Demographics + + + | Address | [address] | | | [place] [address] | + + + | Home Phone [...] | Organization | [facility] [...] [place], [place] | | | | | [address] | | + + + + + | Mao Rea | ECON | Unknown | | + + + + + | Meredith Rea | ECON | Unknown | | + + + + + | Iqra Medina | ECON | [address] | | | | | [place], [place] | | | | | [address] | | + + + + + | Maldonado Rea | ECON | Unknown | | + + + + + Care Team Providers + +------+ + | Care Two Way Radio Installer Name | Role | Phone | [...] [place] | | | | | | [address] | [address] Phone: | | | | | | Phone: | [phone] | | | | | | [phone] | Fax: | | | | | | Fax: | [phone] | | | | | | [phone] | | +--------+ + + + + [...] [address], | [place] [address] | ([facility]) (Primary Dx); | | | | [address] [place] | [place] | Parkinsonian tremor | | | | [place] [address] | [address] | ([facility]); Restless legs | | | | [phone] | | syndrome (RLS); | | | [...] might be different fr om the original. 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 The patient will be refe rred to [facility] neurology for transfer of neurological care. [...] seen by any other providers? YES Provider: [facility] orthopedic doctor, Sherie FERNANDES, Speech and occupational [...] is being followed by Dr. Everett at [facility] orthopedics. The patient states that he feels [...] Parkinson's disease. I also followedthe patient at [facility] sleep clinic for LEANDRO and RBD. 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 Degenerative [...] is oriented to person, place, and time. Oboidc-zxaw-trhuta test: mild bila teral tremor. Neurologic Exam [...] the right. Mild shuffling, no festination.) Coordination Krhjqi-aglc-nnnfkg test: mild bilateral tremor. Tremor Resting tremor: [...] Dysability: 0 34. Dyskinesia Pain: 0 35. Loss Control Engineer Dystonia: 1 36. Predictable Off Periods: 1 37. Unpredictable Off Periods: 0 38. Sudden Off Periods: 0 39. % Waking Day Off: 2 40. Anorexia,Nausea,Emesis: 1 41. Sleep Disturbances: 1 42. Symptomatic Orthostasis: 1 PAST MEDICAL HISTORY Past Medical History: Diagnosis Date Actinic keratosis Anxiety Arthritis rheumatoid Asthma, exercise induced Cancer (HCC) 2003 colon cancer Chronic major depressive disorder, recurrent episode ([facility]) Chronic pain Colon cancer ([facility]) COPD (chronic obstructive pulmonary disease) ([facility]) Degenerative disc disease, lumbar [...] [place] | | | | | | [address] | | | | | | | [...]
--- OUTSIDE RECORDS SUMMARY | ~2019-09-09 | XMS | Encounter Summary ---
Demographics + + + | Address | [address] | | | [place] [address] | + + + | Home Phone [...] Organization | [facility] | | [...] [place], [place] | | | | | [address] | | + + + + + | Mao Rea | ECON | Unknown | | + + + + + | Meredith Rea | ECON | Unknown | | + + + + + | Iqra Medina | ECON | [address] | | | | | [place], [place] | | | | | [address] | | + + + + + | Maldonado Rea | ECON | Unknown | | + + + + + Care Team Providers + +------+ + | Care Vessel Liner Name | Role | Phone | + [...] | | [address] | [place] [address] | [place] ) | | | | [place] | [phone] | | | | | [address] | | | | | | [phone] | | | +--------+ + + + [...] [place] | | | | | | [address] | | | | | | | | +--------+---------+ + + + documented as of this encounter Visit Diagnoses Not on filedocumented in this encounter"
--- OUTSIDE RECORDS SUMMARY | ~2019-09-09 | XMS | Encounter Summary ---
Demographics + + + | Address | [address] | | | [place] [address] | + + + | Home Phone [...] Author | [facility] | | | and [place]ana | + + + | Organization | [facility] [...] [place], [place] | | | | | [address] | | + + + + + | Mao Rea | ECON | Unknown | | + + + + + | Meredith Rea | ECON | Unknown | | + + + + + | Iqra Medina | ECON | [address] | | | | | [place], [place] | | | | | [address] | | + + + + + | Maldonado Rea | ECON | Unknown | | + + + + + Care Team Providers + +------+ + | Care Book Or Script Editor Name | Role | Phone | + [...] | | [address] | [place] [address] | Degenerative disc | | | | [place] | [phone] | disease, lumbar; | | | | [address] | | 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
--- OUTSIDE RECORDS SUMMARY | ~2019-09-09 | XMS | Encounter Summary ---
Demographics + + + | Address | [address] | | | [place] [address] | + + + | Home Phone [...] Organization | [facility] | | [...] [place], [place] | | | | | [address] | | + + + + + | Mao Rea | ECON | Unknown | | + + + + + | Meredith Rea | ECON | Unknown | | + + + + + | Iqra Medina | ECON | [address] | | | | | [place], [place] | | | | | [address] | | + + + + + | Maldonado Rea | ECON | Unknown | | + + + + + Care Team Providers + +------+ + | Care Director Park Name | Role | Phone | + [...] | E | | | | | ([facility]) | [facility] | [place], | | | | | Essential | [place] [address] | [place] [address] | | | | | tremor Mild | [address] [place] | Phone: | | | | | cognitive | [place] | [phone] | | | | | impairment | [address] | Fax: | | | | | | Phone: | [phone] | | | | | | [phone] | | | | | | | Fax: | | | | | | | [phone] | | + + + + + [...] [place] | | | | | | [address] | [address] Phone: | | | | | | Phone: | [phone] | | | | | | [phone] | Fax: | | | | | | Fax: | [phone] | | | | | | [phone] | | +--------+ + + + + [...] disease | | | | [address], | [place] [address] | vs other | | | | [address]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 The patient will be referred to Dr. Ginette stevens in [place], [place] for transfer of neurological care. 5. I advised that I will be available at [place] sleep clinic once a month if he [...] have not thoroughly proofread this note, and oil heaterman errors are likely to occur. CHIEF COMPLAINT: [...] surgeries. He has seen Dr. Everett at [facility] orthopedics who is geo mmending a third [...] Parkinson's disease. I also followedthe patient at [facility] sleep clinic for LEANDRO and RBD. 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 Degenerative disc [...] is oriented to person, place, and time. Agdxwq-odjb-vibefn test: mild bila teral tremor. Neurologic Exam [...] right. Mi ld shuffling, no festination.) Coordination Vvwzui-clru-vqmbfn test: mild bilateral tremor. Tremor Resting tremor: [...] [place] | | | | | | [address] | | | | | | | [...] synucleinopathy | | | | | | ([facility]), JAIR scan | | | | | [...]
--- OUTSIDE RECORDS SUMMARY | ~2019-09-09 | XMS | Encounter Summary ---
Demographics + + + | Address | [address] | | | [place] [address] | + + + | Home Phone [...] Organization | [facility] [...] [place], [place] | | | | | [address] | | + + + + + | Mao Rea | ECON | Unknown | | + + + + + | Meredith Rea | ECON | Unknown | | + + + + + | Iqra Medina | ECON | [address] | | | | | [place], [place] | | | | | [address] | | + + + + + | Maldonado Rea | ECON | Unknown | | + + + + + Care Team Providers + +------+ + | Care Tap Puller Name | Role | Phone | + [...] | | [address] | [place] [address] | | | | | [place], [place] | [phone] | | | | | [address] | | | | | | [phone] | | | +--------+ + + + [...] [place] | | | | | | [address] | | | | | | | | +--------+---------+ + + + documented as of this encounter Visit Diagnoses Not on filedocumented in this encounter"
--- OUTSIDE RECORDS SUMMARY | ~2019-09-09 | XMS | Encounter Summary ---
Demographics + + + | Address | [address] | | | [place] [address] | + + + | Home Phone [...] Organization | [facility] | | [...] [place], [place] | | | | | [address] | | + + + + + | Mao Rea | ECON | Unknown | | + + + + + | Meredith Rea | ECON | Unknown | | + + + + + | Iqra Medina | ECON | [address] | | | | | [place], [place] | | | | | [address] | | + + + + + | Maldonado Rea | ECON | Unknown | | + + + + + Care Team Providers + +------+ + | Care Microchip Specialist Name | Role | Phone | [...] | | | Tino, | [address] | | | | | Sacroiliitis | Luis Carlos Lerner MD | [place], | | | | | ([facility]) | [address] | [place] | | | | | Procedures | [address] [place] | [address] | | | | | [place] INJECT SI | [place] | Phone: | | | | | JOINT | [address] | [phone] | | | | | ARTHRGRPHY&/ | Phone: | Fax: | | | | | ANES/STEROID | [phone] | [phone] | | | | | W/IMAGE [place] | Fax: | | | | | | | [phone] | | | | | | TRIAMCINOLON [...] + + | 06/01/ | Hospital | [facility] | Eric, | S/P lumbar fusion; | | 2017 | Encounter | MED CTR XRAY [address] | [address] | Sacroiliitis, not | | | | [place] | [facility], | elsewhere classified | | | | [place] [address] | [place] [address] | ([facility]) | | | | [phone] | [phone] | | | | | | | [...] [place] | | | | | | [id number] | | | | | | | [...] | 06/01/2017Bilateral Sacroiliac Joint InjectionClinical History: | [facility] | | Sacroiliitis ICD-10 M46.1 Uziel Rea presents to the fluoroscopy [facility] | | suite for fluoroscopically guided bilateral [...] | Tano Reed. | [place] | [phone] | | [facility] | | [address] | | | - IMAGING | | | | + + + + + [place] Sacroiliac Injection Left (06/01/2017 1:12 PM PDT) + + | Specimen | + + | | + + + + + | Narrative | Performed At | + + + | | KEVIN | | 06/01/2017Bilateral Sacroiliac Joint InjectionClinical History: | [facility] | | Sacroiliitis ICD-10 M46.1 Uziel Rea presents to the fluoroscopy [facility] | | suite for fluoroscopically guided bilateral [...] [address] | [place] | [phone] | | [facility] | | [address] | | | - IMAGING | | [...]
--- OUTSIDE RECORDS SUMMARY | ~2019-09-09 | XMS | Encounter Summary ---
Demographics + + + | Address | [address] | | | [place] [address] | + + + | Home Phone [...] | Organization | [facility] | [...] [place], [place] | | | | | [address] | | + + + + + | Mao Rea | ECON | Unknown | | + + + + + | Meredith Rea | ECON | Unknown | | + + + + + | Iqra Medina | ECON | [address] | | | | | [place], [place] | | | | | [address] | | + + + + + | Maldonado Rea | ECON | Unknown | | + + + + + Care Team Providers + +------+ + | Care Tank Refinisher Name | Role | Phone | + +------+ + | Sherie Vela PA-C | PCP | | + +------+ + Reason for Visit + + + | Reason | Comments | + + + | Medication Refill | | + + + | Medication Prior | | | Authorization | | + + + Encounter Details +--------+--------+ + + + | Date | Type | Department | Care Team | Description | +--------+--------+ + + + | 04/21/ | Refill | [facility] [place] | Koby George MD | Medication Refill; | | 2017 | | NEUROSURGERY [address] | [address] | Medication Prior | | | | [address] | [place] [address] | Authorization | | | | [place] | [phone] | | | | | [address] | | | | | | [phone] | | | +--------+--------+ + + + [...] [place] | | | | | | [address] | | | | | | | | +--------+---------+ + + + documented as of this encounter Visit Diagnoses + + | Diagnosis | + + | S/P lumbar fusion Arthrodesis status | + + documented in this encounter"
--- OUTSIDE RECORDS SUMMARY | ~2019-09-09 | XMS | Encounter Summary ---
Demographics + + + | Address | [address] | | | [place] [address] | + + + | Home Phone | | + + + | Preferred Language | Unknown | + + + | Marital Status | | + + + | Advent Affiliation | Unknown | + + + | Race | Unknown | + + + | Ethnic Group | Unknown | + + + Author + + + | Author | [facility] | | | and [place] | + + + | Organization | [facility] | | [...] [place], [place] | | | | | [address] | | + + + + + | Mao Rea | ECON | Unknown | | + + + + + | Meredith Rea | ECON | Unknown | | + + + + + | Iqra Medina | ECON | [address] | | | | | [place], [place] | | | | | [address] | | + + + + + | Maldonado Rea | ECON | Unknown | | + + + + + Care Team Providers + +------+ + | Care Business Records Manager Name | Role | Phone | + +------+ + | Brandon Juarez MD | PCP | | + +------+ + Encounter Details +--------+ + + + + | Date | Type | Department | Care Team | Description | +--------+ + + + + | 10/21/ | [facility] | [facility] | Koby George MD | S/P lumbar fusion | | 2014 | Encounter | MED CTR XRAY [address] | [address] | | | | | [place] [address] | [place] [address] | | | | | [place] [address] | [phone] | | | | | [phone] | | | +--------+ + + + [...] [place] | | | | | | [address] | | | | | | | [...] ST. | [address] | [place], [place] | [phone] | | [facility] | | [address] | | | - IMAGING | | | | + + + + + documented in this encounter Visit Diagnoses + + | Diagnosis | + + | S/P lumbar fusion Arthrodesis status | + + documented in this encounter"
--- OUTSIDE RECORDS SUMMARY | ~2019-09-09 | XMS | Encounter Summary ---
Demographics + + + | Address | [address] | | | [place] [address] | + + + | Home Phone | | + + + | Preferred Language | Unknown | + + + | Marital Status | | + + + | Jain Affiliation | Unknown | + + + | Race | Unknown | + + + | Ethnic Group | Unknown | + + + Author + + + | Author | [facility] | | | and [place] | + + + | Organization | [facility] | | [...] [place], [place] | | | | | [address] | | + + + + + | Mao Rea | ECON | Unknown | | + + + + + | Meredith Rea | ECON | Unknown | | + + + + + | Iqra Medina | ECON | [address] | | | | | [place], [place] | | | | | [address] | | + + + + + | Maldonado Rea | ECON | Unknown | | + + + + + Care Team Providers + +------+ + | Care Blood Bank Manager Name | Role | Phone | [...] | Physical | Diagnoses | [place], | Logan Soto | | | Services | Medicine and | S/P lumbar | Ender | Carmelita Rios MD [address] | | | Required | Rehabilitatio | fusion | VIRY Ramos | [address] | | | | n | 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[place], | | | | | sis of | [address] | [place] [address] | | | | | lumbar spine | [address] | Phone: | | | | | Flat back | [place], | [phone] | | | | | syndrome | [place] [address] | Fax: | | | | | Lumbar | Phone: | [phone] | | | | | stenosis | [phone] | | | | | | with | Fax: | | | | | | neurogenic | [phone] | | | | | | claudication [...] + + | 06/01/ | Office | [facility] [place] | Logan Soto, | Chronic bilateral | | 2017 | Visit | PHYSIATRY [address] | [address] | low back pain with | | | | [address], | [place], [place] | left-sided sciatica | | | | [place] [address] | [address] | (Primary Dx); | | | | [phone] | | Sacroiliac joint | | | [...] clinic. Your injection will be performed a [facility]. Please take note [...] of the procedure you must provide a livery car driver to take you home. For all [...] He is currently under the care of [facility]. Prior injections have included fluoroscopically-guided [...] no apparent deficits with short or long winder tender memory. The cranial nerves appear grossly intact. [...] bilateral sacroiliac joint injections completed at the [facility] under fluoroscopy with Dr. Jiménez for [...] [place] | | | | | | [address] | | | | | | | [...]
--- OUTSIDE RECORDS SUMMARY | ~2019-09-09 | XMS | Clinical Summary ---
Demographics + + + | Address | [address] | | | [place] [address] | + + + | Home Phone [...] Organization | [facility] | [...] [place], [place] | | | | | [address] | | + + + + + | aMo Rea | ECON | Unknown | | + + + + + | Meredith Rea | ECON | Unknown | | + + + + + | Iqra Medina | ECON | [address] | | | | | [place], [place] | | | | | [address] | | + + + + + | Maldonado Rea | ECON | Unknown | | + + + + + Care Team Providers + +------+ + | Care Ruby On Rails Developer Name | Role | Phone | [...] EST appropriate chronotropic response to | | rntxblxy7M echo not done yetCOntinue rest of the [...] 52 bpm. | | Ongoing tremor affecting pgmtmtp8808/25/2016: Labs: Sodium 138, | | potassium 4.2, [...] | + + + + | INFLUENZA, R0L1-22, | 09/11/2009 | | | UNSPECIFIED | [...] [place] | | | | | | [address] | | | | | | | [...] Chip 15cc 4-10mm - | Bone | Client Services Associate | RTI | | 07/27/ | [id number] | | [id number]: Qty: 1 on | | ior: | BIOLOGICS | | 2020 | | | 02/23/2017 by Koby George, | | Spine | INC - RBIO | | | /[id number] | | at [facility] | | Lumbar | | | | 8-030 | | [facility] | | | | | | / | + +--------+--------+ +--------+--------+--------+ | Tlif Oblique [id number] 12deg | Generi | Client Services Associate | NUVASIVE - | | | 747986 | | - [id number]: Qty: 1 | c | ior: | NVSV | | | 2 / / | | on 02/23/2017 by Koby George | | Spine | | | | | | MD Blanca at [facility] | | Lumbar | | | | | | [facility] | | | | | | | + +--------+--------+ +--------+--------+--------+ | Tlif Oblique [id number] 4deg | Generi | Client Services Associate | NUVASIVE - | | | 573159 | | - [id number]: Qty: 1 | c | ior: | NVSV | | | 4 / / | | on 02/23/2017 by Koby George | | Spine | | | | | | MD Blanca at [facility] | | Lumbar | | | | | | [facility] | | | | | | | + +--------+--------+ +--------+--------+--------+ | Vadim Ti Prebent Lordtc 130mm - | Generi | Client Services Associate | NUVASIVE - | | | 828169 | | [id number]: Qty: 1 | c | ior: | NVSV | | | 0 / / | | on 02/23/2017 by Koby George | | Spine | | | | | | MD Blanca at [facility] | | Lumbar | | | | | | [facility] | | | | | | | + +--------+--------+ +--------+--------+--------+ | Vaidm Ti Prebent Lordtc 140mm - | Generi | Client Services Associate | NUVASIVE - | | | 135553 | | [id number]: Qty: 1 | c | ior: | NVSV | | | 0 / / | | on 02/23/2017 by Koby George | | Spine | | | | | | MD [place]anca at [facility] | | Lumbar | | | | | | [facility] | | | | | | | + +--------+--------+ +--------+--------+--------+ | Graft Infuse Bone Kit Xs - | Graft | Client Services Associate | GERALDOR | | 03/30/ | [id number] | | [id number]: Qty: 2 on | | ior: | DANEK - DIV | | 2017 | 0 / | | 02/23/2017 by Koby George, | | Spine | [employer] | | | /[id number] | | at [facility] | | Lumbar | - SFDK | | | [id number] | | [facility] | | | | | | | + +--------+--------+ +--------+--------+--------+ | Putty Patti 10cc Dbm - | Graft | Client Services Associate | MEDTRONIC - | | 10/20/ | [id number] | | [id number]: Qty: 1 on | | ior: | MEDT | | 2019 | | | 02/23/2017 by Koby George, | | Spine | | | | /[id number] | | at [facility] | | Lumbar | | | | 6-017 | | [facility] | | | | | | / | + +--------+--------+ +--------+--------+--------+ | Screw Set - | Screw | Client Services Associate | NUVASIVE - | | | 332534 | | [id number]: Qty: 10 | | ior: | NVSV | | | 0 / / | | on 02/23/2017 by Koby George | | Spine | | | | | | MD Blanca at [facility] | | Lumbar | | | | | | [facility] | | | | | | | + +--------+--------+ +--------+--------+--------+ | Screw Polyax Precept 7.5x55 - | Screw | Client Services Associate | NUVASIVE - | | | 879432 | | [id number]: Qty: 1 | | ior: | NVSV | | | 5A / / | | on 02/23/2017 by Koby George | | Spine | | | | | | MD Blanca at [facility] | | Lumbar | | | | | | [facility] | | | | | | | + +--------+--------+ +--------+--------+--------+ | Screw Polyax Prcpt 8.5x80mm - | Screw | Client Services Associate | NUVASIVE - | | | 112446 | | [id number]: Qty: 1 | | ior: | NVSV | | | 0A / / | | on 02/23/2017 by Koby George | | Spine | | | | | | MD Blanca at [facility] | | Lumbar | | | | | | [facility] | | | | | | | + +--------+--------+ +--------+--------+--------+ | Screw Polyax Prcpt 8.5x70mm - | Screw | Client Services Associate | NUVASIVE - | | | 626902 | | [id number]: Qty: 1 | | ior: | NVSV | | | 0A / / | | on 02/23/2017 by Koby George | | Spine | | | | | | MD Blanca at [facility] | | Lumbar | | | | | | [facility] | | | | | | | + +--------+--------+ +--------+--------+--------+ | Screw Polyax Prcpt 8.5x55mm - | Screw | Client Services Associate | NUVASIVE - | | | 160986 | | [id number]: Qty: 2 | | ior: | NVSV | | | 5A / / | | on 02/23/2017 by Koby George | | Spine | | | | | | MD Blanca at [facility] | | Lumbar | | | | | | [facility] | | | | | | | + +--------+--------+ +--------+--------+--------+ | Lesiajavier Patti 10cc Dbm - | | N/A: | OSTEOTECH - | | 08/05/ | 01418 | | [id number]: Qty: 1 | | Spine | OSTT | | 2017 | /[id number] | | on 12/02/2014 by Koby George | | Lumbar | | | | 5-027 | | MD Blanca at [facility] | | | | | | / | | [facility] | | | | | | | + +--------+--------+ +--------+--------+--------+ | Cage Doug Wide [id number] 10deg - | | | NUVASIVE - | | | [id number] | | [id number]: Qty: 1 | | | NVSV | | | 0 / / | | on 12/02/2014 at [facility] | | | | | | | | [facility] | | | | | | | | CENTER | | | | | | | + +--------+--------+ +--------+--------+--------+ | Bone Matrix Osteocel Pro 5cc | | N/A: | NUVASIVE - | | 03/02/ | 937815 | | - [id number]: Qty: 1 | | Spine | NVSV | | 2019 | 5 | | on 12/02/2014 by Koby George | | Lumbar | | | | /[id number] | | MD Blanca at [facility] | | | | | | 0519 / | | [facility] | | | | | | | + +--------+--------+ +--------+--------+--------+ | Cage Peek Xlw L 10d | | N/A: | NUVASIVE - | | | 325387 | | [id number] - | | Spine | NVSV | | | 0 / / | | [id number]: Qty: 1 on | | Lumbar | | | | | | 12/02/2014 by Koby George, | | | | | | | | at [facility] | | | | | | | | [facility] | | | | | | | + +--------+--------+ +--------+--------+--------+ | Imp Spn Spcr Xlw 10d [id number] | | N/A: | NUVASIVE - | | | [id number] | | - [id number]: Qty: 1 | | Spine | NVSV | | | 5 / / | | on 12/02/2014 by Koby George | | Lumbar | | | | | | MD Blanca at [facility] | | | | | | | | [facility] | | | | | | | + +--------+--------+ +--------+--------+--------+ | Screw Polyax Precept 6.5x50 - | | | NUVASIVE - | | | 613069 | | [id number]: Qty: 1 | | | NVSV | | | 0A / / | | on 12/02/2014 by Koby George | | | | | | | | MD [place]anca at [facility] | | | | | | | | [facility] | | | | | | | + +--------+--------+ +--------+--------+--------+ | Screw Polyax Precept 7.5x55 - | | | NUVASIVE - | | | 114303 | | [id number]: Qty: 2 | | | NVSV | | | 5A / / | | on 12/02/2014 by Koby George | | | | | | | | MD [place]anca at [facility] | | | | | | | | [facility] | | | | | | | + +--------+--------+ +--------+--------+--------+ | Precept ScrewImplanted: Qty: | | | | | | [id number] | | 2 on 12/02/2014 by Koby George | | | | | | 0 / / | | MD [place] at [facility] | | | | | | | | [facility] | | | | | | | + +--------+--------+ +--------+--------+--------+ | Vadim Ti Prebent Lordtc 110mm - | | | NUVASIVE - | | | [id number] | | [id number]: Qty: 2 | | | NVSV | | | 0 / / | | on 12/02/2014 at [facility] | | | | | | | | [facility] | | | | | | | | CENTER | | | | | | | + +--------+--------+ +--------+--------+--------+ | Screw Set - | | | NUVASIVE - | | | [id number] | | [id number]: Qty: 8 on | | | NVSV | | | 0 / / | | 12/02/2014 by Koby George | | | | | | | | at [facility] | | | | | | | | [facility] | | | | | | [...] + +--------+ | MEDICARE | MEDICA | [id number] | 12/01/18 | [phone] | | Medica | | | RE | | 80-Pre | 5 | | re | | | PART A | | sent | | | | | | AND B | | | | | | + +--------+ +--------+ + +--------+ | MEDICARE | MEDICA | [id number] | 12/01/18 | [phone] | | Medica | | | RE | | 80-Pre | 5 | | re | | | PART A | | sent | | | | | | AND B | | | | | | + +--------+ +--------+ + +--------+ | MODA | MODA | [id number] | 01/30/20 | [phone] | [address] | Indemn | | | HEALTH | | 10-Pre | 9 | [phone] | ity | | | MDCR | | sent | | [place], | | | | [place] | | | | [place] [address] | | + +--------+ +--------+ + +--------+ [...] | 1945 | [id number] | [place] [address] | | | scot | | | 8 (Home) | | + +--------+ +--------+ + + | Uziel Rea | Person | Self | [birth year] | [address] | | | al/Fam | | 1945 | [address] | [place] [address] | | | scot | | | 8 (Home) | | + +--------+ +--------+ + + Advance Directives + + + + + | Type | Date Recorded | Patient | Explanation | | | | Strap Making Machine Operator | | + + + + + | Power of | | | | | Import/Export Clerk | | | | + + + [...]
--- OUTSIDE RECORDS SUMMARY | ~2019-09-09 | XMS | Encounter Summary ---
Demographics + + + | Address | [address] | | | [place] [address] | + + + | Home Phone | | + + + | Preferred Language | Unknown | + + + | Marital Status | | + + + | Jewish Affiliation | Unknown | + + + | Race | Unknown | + + + | Ethnic Group | Unknown | + + + Author + + + | Author | [facility] | | | and [place] | + + + | Organization | [facility] | | [...] [place], [place] | | | | | [address] | | + + + + + | Mao Rea | ECON | Unknown | | + + + + + | Meredith Rea | ECON | Unknown | | + + + + + | Iqra Medina | ECON | [address] | | | | | [place], [place] | | | | | [address] | | + + + + + | Maldonado Rea | ECON | Unknown | | + + + + + Care Team Providers + +------+ + | Care Electronic Transaction Implementer Name | Role | Phone | + [...] Changes | NEUROSURGERY [address] | [address] | | | | | [address] | | | | | | [place] | | | | | | [address] | | | | | | [phone] | | | +--------+ + + + [...] [place] | | | | | | [id number] | | | | | | | | +--------+---------+ + + + documented as of this encounter Visit Diagnoses Not on filedocumented in this encounter"
--- OUTSIDE RECORDS SUMMARY | ~2019-09-09 | XMS | Encounter Summary ---
Demographics + + + | Address | [address] | | | [place] [address] | + + + | Home Phone | | + + + | Preferred Language | Unknown | + + + | Marital Status | | + + + | Islam Affiliation | Unknown | + + + | Race | Unknown | + + + | Ethnic Group | Unknown | + + + Author + + + | Author | [facility] | | | and [place] | + + + | Organization | [facility] | | [...] [place], [place] | | | | | [address] | | + + + + + | Mao Rea | ECON | Unknown | | + + + + + | Meredith Rea | ECON | Unknown | | + + + + + | Iqra Medina | ECON | [address] | | | | | [place], [place] | | | | | [address] | | + + + + + | Maldonado Rea | ECON | Unknown | | + + + + + Care Team Providers + +------+ + | Care Delivery Route Driver Name | Role | Phone | [...] | | [address] | [place] [address] | Authorization | | | | [place] | [phone] | | | | | [address] | | | | | | [phone] | | | +--------+--------+ + + + [...] [place] | | | | | | [address] | | | | | | | | +--------+---------+ + + + documented as of this encounter Visit Diagnoses + + | Diagnosis | + + | S/P lumbar fusion Arthrodesis status | + + documented in this encounter"
--- OUTSIDE RECORDS SUMMARY | ~2019-09-09 | XMS | Encounter Summary ---
Demographics + + + | Address | [address] | | | [place] [address] | + + + | Home Phone [...] | + + + | Organization | [facility] | [...] [place], [place] | | | | | [address] | | + + + + + | Mao Rea | ECON | Unknown | | + + + + + | Meredith Rea | ECON | Unknown | | + + + + + | Iqra Medina | ECON | [address] | | | | | [place], [place] | | | | | [address] | | + + + + + | Maldonado Rea | ECON | Unknown | | + + + + + Care Team Providers + +------+ + | Care Building Dismantler Name | Role | Phone | + [...] | MED CTR EXTERNAL | MD [address] | | | | | IMAGING | [address] | | | | | [phone] | [place] [address] | | +--------+ + + + + [...] [place] | | | | | | [address] | | | | | | | [...]
--- OUTSIDE RECORDS SUMMARY | ~2019-09-09 | XMS | Encounter Summary ---
Demographics + + + | Address | [address] | | | [place] [address] | + + + | Home Phone | | + + + | Preferred Language | Unknown | + + + | Marital Status | | + + + | Confucianist Affiliation | Unknown | + + + | Race | Unknown | + + + | Ethnic Group | Unknown | + + + Author + + + | Author | [facility] | | | and [place] | + + + | Organization | [facility] [...] [place], [place] | | | | | [address] | | + + + + + | Mao Rea | ECON | Unknown | | + + + + + | Meredith Rea | ECON | Unknown | | + + + + + | Iqra Medina | ECON | [address] | | | | | [place], [place] | | | | | [address] | | + + + + + | Maldonado Rea | ECON | Unknown | | + + + + + Care Team Providers + +------+ + | Care Bisque Tile Burner Name | Role | Phone | + [...] | | [address] | [place] [address] | | | | | [place] | [phone] | | | | | [address] | | | | | | [phone] | | | +--------+ + + + [...] [place] | | | | | | [address] | | | | | | | | +--------+---------+ + + + documented as of this encounter Visit Diagnoses Not on filedocumented in this encounter"
--- OUTSIDE RECORDS SUMMARY | ~2019-09-09 | XMS | Encounter Summary ---
Demographics + + + | Address | [address] | | | [place] [address] | + + + | Home Phone [...] | Organization | [facility] | | [...] [place], [place] | | | | | [address] | | + + + + + | Mao Rea | ECON | Unknown | | + + + + + | Meredith Rea | ECON | Unknown | | + + + + + | Iqra Medina | ECON | [address] | | | | | [place], [place] | | | | | [address] | | + + + + + | Maldonado Rea | ECON | Unknown | | + + + + + Care Team Providers + +------+ + | Care Plastic Boat Patcher Name | Role | Phone | [...] | Logan Rios MD | [address] | | | | | Lumbar | [address] | [place], | | | | | radiculopath | [address] | [place] | | | | | y Lumbar | [place], | [address] | | | | | spondylosis | [place] [address] | Phone: | | | | | Left leg | Phone: | [phone] | | | | | weakness | [phone] | Fax: | | | | | Lower | Fax: | [phone] | | | | | extremity | [phone] | | | | | | numbness [...] | pain | MD Sohail | [address] | | | | n | | [address] | [place], | | | | | | [place] | [place] [address] | | | | | | [place], [place] | Phone: | | | | | | [address] | [phone] | | | | | | Phone: | Fax: | | | | | | [phone] | [phone] | | | | | | Fax: | | | | | | | [phone] | | +--------+--------+ + + + + Encounter Details +--------+---------+ + + + | Date | Type | Department | Care Team | Description | +--------+---------+ + + + | 06/17/ | Office | [facility] | Logan Soto, | Lumbalgia (Primary | | 2013 | Visit | PHYSIATRY [address] | [address] | Dx); Lumbar | | | | [address] [place], | [place], [place] | radiculopathy; | | | | [place] [address] | [address] | Lumbar spondylosis; | | | | [phone] | | Left leg weakness; | | [...] office note has been dictated. Job ID# [id number] signed by Logan Soto MD at 06/17/2014 2:01 PM Citlalli Pendleton RN - 06/17/2014 1:13 PM PDTC/o lower back pain, rated 7/10. Taking medical marijuana for pa in. Pain started few months ago. Hx: rhematoid arthritis. Logan Betst MD - 06/17/2014 12:00 AM PDT [facility] [address] [place] [address] FAX: [phone] OFFICE VISIT PHYSICAL MEDICINE REHABILITATION CONSULT CONSULT [...] daily. 12. Lisinopril 10 mg daily. 13. Nassawadox 300 mg 3 times per day. 14. [...] is retired. 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 He indicates that he [...] low. Greater than 45 minutes was spent [id number]-[id number]-khku today with Mr. Rea, over half of which wa s spent formulating and discussing his medical treatment plan. Logan Soto Jr, MD GEM / TB JOB #: [id number] cc: Brandon Juarez MD A M PDTdocumented [...] [place] | | | | | | [address] | | | | | | | [...] + | MISCELLANEOUS LAB | | | [phone] | + +---------+ + + | MISCELANIOUS LAB | | | [phone] | + +---------+ + + XR Lumbar [...] + | MISCELLANEOUS LAB | | | [phone] | + +---------+ + + | MISCELANIABILIO LAB | | | [phone] | + +---------+ + + documented in [...]
--- OUTSIDE RECORDS SUMMARY | ~2019-09-09 | XMS | Encounter Summary ---
Demographics + + + | Address | [address] | | | [place] [address] | + + + | Home Phone | | + + + | Preferred Language | Unknown | + + + | Marital Status | | + + + | Christianity Affiliation | Unknown | + + + | Race | Unknown | + + + | Ethnic Group | Unknown | + + + Author + + + | Author | [facility] | | | and [place] | + + + | Organization | [facility] | | | and [place] [...] [place], [place] | | | | | [address] | | + + + + + | Mao Rea | ECON | Unknown | | + + + + + | Meredith Rea | ECON | Unknown | | + + + + + | Iqra Medina | ECON | [address] | | | | | [place], [place] | | | | | [address] | | + + + + + | Maldonado Rea | ECON | Unknown | | + + + + + Care Team Providers + +------+ + | Care Special Procedures Technologist Name | Role | Phone | + +------+ + | Brandon Juarez MD | PCP | | + +------+ + Encounter Details +--------+ + + + + | Date | Type | Department | Care Team | Description | +--------+ + + + + | 06/17/ | Hospital | [facility] | Logan Soto, | Lumbar radiculopathy | | 2016 | Encounter | MED CTR LABORATORY | [address] | | | | | [address] | [place] | | | | | [place] | [address] | | | | | [address] | | | | | | [phone] | | | +--------+ + + + [...] [place] | | | | | | [id number] | | | | | | | [...] mL/min/1.73m2 | [facility] | | | [facility] | RATE,ESTIMATED | | MEDICAL | | | | mL/min/1.57i9Josg than | | CENTER - | | [...] ST. | [address] | [place], [place] | [phone] | | [facility] | | [address] | | | - LABORATORY | | | | + + + + + documented in this encounter Visit Diagnoses + + | Diagnosis | + + | Lumbar radiculopathy Thoracic or lumbosacral neuritis or radiculitis, unspecified | + + documented in this encounter"
--- OUTSIDE RECORDS SUMMARY | ~2019-09-09 | XMS | Encounter Summary ---
Demographics + + + | Address | [address] | | | [place] [address] | + + + | Home Phone [...] Organization | [facility] | | [...] [place], [place] | | | | | [address] | | + + + + + | Mao Rea | ECON | Unknown | | + + + + + | Meredith Rea | ECON | Unknown | | + + + + + | Iqra Medina | ECON | [address] | | | | | [place], [place] | | | | | [address] | | + + + + + [...] | | [address] | [place] [address] | | | | | [place] | [phone] | | | | | [address] | | | | | | [phone] | | | +--------+---------+ + + + [...] from t tu original. Koby George MD [address] [place] [address], [address] [place] [address] FAX: NEUROSURGERY FOLLOW-UP CHIEF COMPLAINT: Chief Complaint [...] deliberately increas e his activities with walking. care home pain medication should be continued and tapered [...] [place] | | | | | | [address] | | | | | | | [...]
--- OUTSIDE RECORDS SUMMARY | ~2019-09-09 | XMS | Encounter Summary ---
Demographics + + + | Address | [address] | | | [place] [address] | + + + | Home Phone [...] [facility] | | | [...] [place], [place] | | | | | [address] | | + + + + + | Mao Rea | ECON | Unknown | | + + + + + | Meredith Rea | ECON | Unknown | | + + + + + | Iqra Medina | ECON | [address] | | | | | [place], [place] | | | | | [address] | | + + + + + | Maldonado Rea | ECON | Unknown | | + + + + + Care Team Providers + +------+ + | Care Wash Oil Pump Operator Name | Role | Phone | [...] | (Primary Dx) | | | | [place], | [place] | | | | | [place] [address] | [address] | | | | | [phone] | | | +--------+ + + + [...] [place] | | | | | | [address] | | | | | | | [...]
--- OUTSIDE RECORDS SUMMARY | ~2019-09-09 | XMS | Encounter Summary ---
Demographics + + + | Address | [address] | | | [place] [address] | + + + | Home Phone [...] + + | Organization | [facility] | [...] [place], [place] | | | | | [address] | | + + + + + | Mao Rea | ECON | Unknown | | + + + + + | Meredith Rea | ECON | Unknown | | + + + + + | Iqra Medina | ECON | [address] | | | | | [place], [place] | | | | | [address] | | + + + + + | Maldonado Rea | ECON | Unknown | | + + + + + Care Team Providers + +------+ + | Care Sheet Rock Installer Name | Role | Phone | [...] | | | | y Chronic | [address] | [place] | | | | | left-sided | [place], | [address] [address] | | | | | low back | [place] [address] | [place], [place] | | | | | pain with | Phone: | [phone] | | | | | left-sided | [phone] | Phone: | | | | | sciatica | Fax: | [phone] | | | | | History of | [phone] | Fax: | | | | | lumbar | | [phone] | | | | | fusion | [...] | | | | | | | ([facility]) | | | +--------+ + + + [...] | PHYSIATRY [address] | [address] | (Primary Dx); | | | | [place], | [place], [place] | Chronic left-sided | | | | [place] [address] | [address] | low back pain with | | | | [phone] | | left-sided sciatica; | | | [...] Petra Prater RN - 02/26/2019 1:00 PM [facility]. Please attend the injection appointment with Luis Carlos Jiménez MD. If his office has not co ntacted you within one week, to schedule the injection, please contact my clinic. Your inje ction will be performed at [facility]. Please take note of [...] of the procedure you must provide a delivery truck driver heavy to take you home. For all procedur es it is recommended that someone else drive you home. documented in this encounter Progress Notes Logan Soto MD - 02/26/2019 1:00 PM PDTFormatting of this note might be different fro m the original. Logan Soto MD [address] [facility] [address] [place], [place] [address] FAX: PHYSICAL MEDICINE AND REHABILITATION H&P CHIEF [...] a neurosurgeon. He will be referred to [facility] neurosurgery to discuss available surgical interventions. [...] Uziel Rea will have neurosurgery consult at [facility] to discuss surgical treatment options for [...] [place] | | | | | | [id number] | | | | | | | [...]
--- OUTSIDE RECORDS SUMMARY | ~2019-09-09 | XMS | Encounter Summary ---
Demographics + + + | Address | [address] | | | [place] [address] | + + + | Home Phone | | + + + | Preferred Language | Unknown | + + + | Marital Status | | + + + | Scientologist Affiliation | Unknown | + + + | Race | Unknown | + + + | Ethnic Group | Unknown | + + + Author + + + | Author | [facility] | | | and [place] | + + + | Organization | [facility] | | [...] [place], [place] | | | | | [address] | | + + + + + | Mao Rea | ECON | Unknown | | + + + + + | Meredith Rea | ECON | Unknown | | + + + + + | Iqra Medina | ECON | [address] | | | | | [place], [place] | | | | | [address] | | + + + + + | Maldonado Rea | ECON | Unknown | | + + + + + Care Team Providers + +------+ + | Care Sustainability Specialist Name | Role | Phone | [...] | fusion | [address] | [address] | | | | n | 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 Your injection will be performed a [facility] [...] of the procedure you must provide a guard driver to take you home. For all [...] He is currently under the care of [facility]. Prior injections have included fluoroscopically-guided [...] no apparent deficits with short or terminal gauger memory. The cranial nerves appear grossly intact. [...] bilateral sacroiliac joint injections completed at [facility] under fluoroscopy with Dr. Jiménez for [...] as scribed by in my presence, Petra Praetr RN and are both accurate and complete. [...] [place] | | | | | | [address] | | | | | | | [...]
--- OUTSIDE RECORDS SUMMARY | ~2019-09-09 | XMS | Encounter Summary ---
Demographics + + + | Address | [address] | | | [place] [address] | + + + | Home Phone [...] + | Author | [facility] | | | and [place] | + + + | Organization | [facility] [...] [place], [place] | | | | | [address] | | + + + + + | Mao Rea | ECON | Unknown | | + + + + + | Meredith Rea | ECON | Unknown | | + + + + + | Iqra Medina | ECON | [address] | | | | | [place], [place] | | | | | [address] | | + + + + + | Maldonado Rea | ECON | Unknown | | + + + + + Care Team Providers + +------+ + | Care Porcelain Technician Name | Role | Phone | [...] | | | | low back | [address] | | | | | | pain with | [place], | | | | | | left-sided | [place] [address] | | | | | | sciatica | Phone: | | | | | | Lumbar | [phone] | | | | | | radiculopath | Fax: | | | | | | y Lumbar | [phone] | | | | | | spinal [...] | | | | low back | [address] | [place], [place] | | | | | pain with | [place], | [address] | | | | | left-sided | [place] [address] | Phone: | | | | | sciatica | Phone: | [phone] | | | | | Lumbar | [phone] | Fax: | | | | | radiculopath | Fax: | [phone] | | | | | y Lumbar | [phone] | | | | | | spinal [...] + + | 09/03/ | Office | [facility] [place] | Logan Sands, | Chronic left-sided | | 2016 | Visit | PHYSIATRY [address] | MD [address] | low back pain with | | | | [place], | [place], [place] | left-sided sciatica | | | | [place] [address] | [address] | (Primary Dx); Lumbar | | | | [phone] | | radiculopathy; | | | | [...] MD - 09/03/2016 12:27 PM PDT [facility] PHYSI[facility] [address] [facility] [address] OFFICE NOTE LOGAN SANDS JR, MD Patient: RACHEL REA Admitting: MR #: [id number] LOC: PT TYPE: Adm Date: 09/03/2016 : [...] Transcribed on 09/04/2016 08:25:07 by jada job# [id number] Confirmation #: [id number] cc: BRANDON JUAREZ MD Logan Sands MD - 09/03/2016 11:37 AM PDTThis office note has been dictated. Report Confirmation# [id number] signed by Logan Sands MD at 09/03/2016 [...] [place] | | | | | | [address] | | | | | | | [...]
--- OUTSIDE RECORDS SUMMARY | ~2019-09-09 | XMS | Encounter Summary ---
Demographics + + + | Address | [address] | | | [place] [address] | + + + | Home Phone | | + + + | Preferred Language | Unknown | + + + | Marital Status | | + + + | Hindu Affiliation | Unknown | + + + | Race | Unknown | + + + | Ethnic Group | Unknown | + + + Author + + + | Author | [facility] | | | and [place] | + + + | Organization | [facility] | | [...] [place], [place] | | | | | [address] | | + + + + + | Mao Rea | ECON | Unknown | | + + + + + | Meredith Rea | ECON | Unknown | | + + + + + | Iqra Medina | ECON | [address] | | | | | [place], [place] | | | | | [address] | | + + + + + | Maldonado Rea | ECON | Unknown | | + + + + + Care Team Providers + +------+ + | Care Washing Machine Loader Name | Role | Phone | [...] | PHYSIATRY [address] | [address] | low back pain with | | | | [place], | [place], [place] | left-sided sciatica | | | | [place] [address] | [address] | (Primary Dx); Lumbar | | | | [phone] | | radiculopathy; | | | | [...] fro m the original. Logan Soto MD [address] [place] [address], [address] [place], [place] [address] FAX: PHYSICAL MEDICINE AND REHABILITATION H&P CHIEF COMPLAINT: Chief Complaint Patient presents with Back Pain HISTORY OF PRESENT ILLNESS: Uziel Rea is a 72 y.o. male being seen today in follow-up for complaints of back raj n. Uziel Rea was last seen on 07/20/17. Previously it was recommended that he comp lete left [id number], that he complete consult with Dr. Jessica [...] apparent deficits with short or prison memory. The cranial nerves appear grossly intact. [...] to continue to monitor this symptom. Uziel eRa was advised to contact the office in [...] [place] | | | | | | [address] | | | | | | | [...]
--- OUTSIDE RECORDS SUMMARY | ~2019-09-09 | XMS | Encounter Summary ---
Demographics + + + | Address | [address] | | | [place] [address] | + + + | Home Phone [...] + | Organization | [facility] | [...] [place], [place] | | | | | [address] | | + + + + + | Mao Rea | ECON | Unknown | | + + + + + | Meredith Rea | ECON | Unknown | | + + + + + | Iqra Medina | ECON | [address] | | | | | [place], [place] | | | | | [address] | | + + + + + | Maldonado Rea | ECON | Unknown | | + + + + + Care Team Providers + +------+ + | Care State Game Warden Name | Role | Phone | + [...] Synovial cyst of | | | | [place], [place] | [place], [place] | lumbar facet joint; | | | | [address] | [address] | 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
--- OUTSIDE RECORDS SUMMARY | ~2019-09-09 | XMS | Encounter Summary ---
Demographics + + + | Address | [address] | | | [place] [address] | + + + | Home Phone [...] + | Organization | [facility] | | [...] [place], [place] | | | | | [address] | | + + + + + | Mao Rea | ECON | Unknown | | + + + + + | Meredith Rea | ECON | Unknown | | + + + + + | Iqra Medina | ECON | [address] | | | | | [place], [place] | | | | | [address] | | + + + + + | Maldonado Rea | ECON | Unknown | | + + + + + Care Team Providers + +------+ + | Care Deputy Sheriff Building Guard Name | Role | Phone | + [...] 2019 | | NEUROLOGY [place] | [address] [facility] | Management | | | | [address], | [place] [address] | | | | | [address] [place] | [place] | | | | | [place] [address] | [address] | | | | | [phone] | | | +--------+ + + + [...] [place] | | | | | | [id number] | | | | | | | | +--------+---------+ + + + documented as of this encounter Visit Diagnoses + + | Diagnosis | + + | 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
--- OUTSIDE RECORDS SUMMARY | ~2019-09-09 | XMS | Encounter Summary ---
Demographics + + + | Address | [address] | | | [place] [address] | + + + | Home Phone [...] + | Organization | [facility] [...] [place], [place] | | | | | [address] | | + + + + + | Mao Rea | ECON | Unknown | | + + + + + | Meredith Rea | ECON | Unknown | | + + + + + | Iqra Medina | ECON | [address] | | | | | [place], [place] | | | | | [address] | | + + + + + | Maldonado Rea | ECON | Unknown | | + + + + + Care Team Providers + +------+ + | Care Global Coordinator Name | Role | Phone | [...] | | | | | arthropathy, | [place] [address] | [address] | | | | | lumbar | Phone: | Phone: | | | | | | [phone] | [phone] | | | | | | Fax: | Fax: | | | | | | [phone] | [phone] | +--------+ + + + + + Reason for Visit +---------+ + | Reason | Comments | +---------+ + | Post Op | 4W PO | +---------+ + Encounter Details +--------+---------+ + + + | Date | Type | Department | Care Team | Description | +--------+---------+ + + + | 04/05/ | [facility] | [facility] | Pedro Riggins | S/P lumbar fusion | | 2017 | Visit | NEUROSURGERY [address] | D, CHELSYC [address] | (Primary Dx); Lumbar | | | | [address] | [address] | radiculopathy; | | | | [place], [place] | [place], [place] | Facet arthropathy, | | | | [address] | [address] | lumbar | | | | [phone] | | | +--------+---------+ + + + [...] encounter Patient Instructions Patient Instructions Giuliana Kebede, Metal Drawer - 04/05/2017 2:30 PM PDTI have ord [...] your back and use good technique when poultry picking machine tender 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 documented in this encounter Progress Notes Pedro Riggins PA-C - 04/05/2017 2:30 PM PDTFormatting of this note might be differen t from the original. Pedro Riggins PA-C [address] [facility], [address] [place], [place] [address] FAX: NEUROSURGERY FOLLOW-UP CHIEF COMPLAINT: Chief Complaint [...] 14:20 Giuliana Kebede assisted me in the answering service agent of this note in my presence today. [...] [place] | | | | | | [address] | | | | | | | [...]
--- OUTSIDE RECORDS SUMMARY | ~2019-09-09 | XMS | Encounter Summary ---
Demographics + + + | Address | [address] | | | [place] [address] | + + + | Home Phone [...] | Organization | [facility] [...] [place], [place] | | | | | [address] | | + + + + + | Mao Rea | ECON | Unknown | | + + + + + | Meredith Rea | ECON | Unknown | | + + + + + | Iqra Medina | ECON | [address] | | | | | [place], [place] | | | | | [address] | | + + + + + | Maldonado Rea | ECON | Unknown | | + + + + + Care Team Providers + +------+ + | Care Lotus Notes Developer Name | Role | Phone | [...] | | [address] | [place] [address] | question ) | | | | [place] | [phone] | | | | | [address] | | | | | | [phone] | | | +--------+ + + + [...] [place] | | | | | | [address] | | | | | | | | +--------+---------+ + + + documented as of this encounter Visit Diagnoses Not on filedocumented in this encounter"
--- OUTSIDE RECORDS SUMMARY | ~2019-09-09 | XMS | Encounter Summary ---
Demographics + + + | Address | [address] | | | [place] [address] | + + + | Home Phone [...] | [facility] | | | [...] [place], [place] | | | | | [address] | | + + + + + | Mao Rea | ECON | Unknown | | + + + + + | Meredith Rea | ECON | Unknown | | + + + + + | Iqra Medina | ECON | [address] | | | | | [place], [place] | | | | | [address] | | + + + + + | Maldonado Rea | ECON | Unknown | | + + + + + Care Team Providers + +------+ + | Care Size Stamper Name | Role | Phone | + +------+ + PCP | Unavailable | + +------+ + Encounter Details +--------+ + + + + | Date | Type | Department | Care Team | Description | +--------+ + + + + | 06/21/ | Hospital | [facility] | Hadley Weiss | | | 2010 | Encounter | MED CTR SLEEP | MD [place] | | | | | [place] [address] | [facility] | | | | | [place] | [place] [address] | | | | | [address] | [phone] | | | | | [phone] | | | +--------+ + + + [...] [place] | | | | | | [address] | | | | | | | | +--------+---------+ + + + documented as of this encounter Visit Diagnoses Not on filedocumented in this encounter"
--- OUTSIDE RECORDS SUMMARY | ~2019-09-09 | XMS | Encounter Summary ---
Demographics + + + | Address | [address] | | | [place] [address] | + + + | Home Phone [...] Organization | [facility] | | [...] [place], [place] | | | | | [address] | | + + + + + | Mao Rea | ECON | Unknown | | + + + + + | Meredith Rea | ECON | Unknown | | + + + + + | Iqra Medina | ECON | [address] | | | | | [place], [place] | | | | | [address] | | + + + + + | Maldonado Rea | ECON | Unknown | | + + + + + Care Team Providers + +------+ + | Care Registered Nurse Cardiac Name | Role | Phone | + +------+ + | Brandon Juarez MD | PCP | | + +------+ + Encounter Details +--------+ + + + + | Date | Type | Department | Care Team | Description | +--------+ + + + + | 10/21/ | [facility] | [facility] | Ender Mora | Hip pain, chronic, | | 2014 | Encounter | MED CTR XRAY [address] | [address] | left | | | | [place] | [address] | | | | | [place] [address] | [place] | | | | | [phone] | [address] | | | | | | | [...] [place] | | | | | | [address] | | | | | | | [...] [address] | [place] | [phone] | | [facility] | | [address] | | | - IMAGING | | | | + + + + + documented in this encounter Visit Diagnoses + + | Diagnosis | + + | Hip pain, chronic, left | + + documented in this encounter"
--- OUTSIDE RECORDS SUMMARY | ~2019-09-09 | XMS | Encounter Summary ---
Demographics + + + | Address | [address] | | | [place] [address] | + + + | Home Phone | | + + + | Preferred Language | Unknown | + + + | Marital Status | | + + + | Taoism Affiliation | Unknown | + + + | Race | Unknown | + + + | Ethnic Group | Unknown | + + + Author + + + | Author | [facility] | | | and [place] | + + + | Organization | [facility] | [...] [place], [place] | | | | | [address] | | + + + + + | Mao Rea | ECON | Unknown | | + + + + + | Meredith Rea | ECON | Unknown | | + + + + + | Iqra Medina | ECON | [address] | | | | | [place], [place] | | | | | [address] | | + + + + + | Maldonado Rea | ECON | Unknown | | + + + + + Care Team Providers + +------+ + | Care Interpretive Naturalist Name | Role | Phone | + +------+ + PCP | Unavailable | + +------+ + Encounter Details +--------+ + + + + | Date | Type | Department | Care Team | Description | +--------+ + + + + | 07/27/ | Hospital | [facility] | | | | 1994 | Encounter | MED CTR GENERIC OP | | | | | | CONV DEPT [address] | | | | | | [place], | | | | | | [place] [address] | | | | | | [phone] | | | +--------+ + + + [...] [place] | | | | | | [address] | | | | | | | | +--------+---------+ + + + documented as of this encounter Visit Diagnoses Not on filedocumented in this encounter"
--- OUTSIDE RECORDS SUMMARY | ~2019-09-09 | XMS | Encounter Summary ---
Demographics + + + | Address | [address] | | | [place] [address] | + + + | Home Phone [...] + | Organization | [facility] | [...] [place], [place] | | | | | [address] | | + + + + + | Mao Rea | ECON | Unknown | | + + + + + | Meredith Rea | ECON | Unknown | | + + + + + | Iqra Medina | ECON | [address] | | | | | [place], [place] | | | | | [address] | | + + + + + | Maldonado Rea | ECON | Unknown | | + + + + + Care Team Providers + +------+ + | Care Academic Support Coordinator Name | Role | Phone | [...] | | | lordosis | | [address] | | | | | (acquired) | | [place], | | | | | Other | | [place] [address] | | | | | lordosis | | Phone: | | | | | (acquired) | | [phone] | | | | | Procedures | | Fax: | | | | | [place] | | [phone] | | | | | ARTHRODESIS | [...] + + | 12/02/ | Surgery | [facility] | Koby George MD | L2-3, L3-4, L4-5 | | 2015 | | MED CTR OR INTRA OP | [address] | LAIF, L2-3, L3-4, | | | | [address] | [place] [address] | L4-5 Posterior | | | | [place] | [phone] | Instrumentation, | | | | [address] | | L2-3 Decompression | | | | [phone] | | | +--------+---------+ + + + [...] might be differen t from the original. [facility] DIS[facility]GE SUMMARY Patient Name: Uziel [...] Clifford PA - 12/03/2014 7:28 AM PST [facility] PROGRESS NOTE Pt. Name/Age/: Uziel Silas Rea 69 y.o. 1945 Med. Record Number: [id number] Date of admission: 12/02/2014 Subjective: The patient [...] signed by: Ender Mora, 12/03/2014 7:28 [facility] documented in th is encounter Plan of [...] [place] | | | | | | [address] | | | | | | | [...] + + + | UNIT # | [id number] | | [facility] | | | | [...] | | [facility] | | [address] | | | - BLOOD BANK | [...] + + + | UNIT # | [id number] | | [facility] | | | | [...] | | [facility] | | [address] | | | - BLOOD BANK | [...] + | MISCELLANEOUS LAB | | | [phone] | + +---------+ + + | MISCELANIOUS LAB | | | [phone] | + +---------+ + + CBC no Differential (12/03/2014 6:21 AM PST) + + + + + + | Component | Value | Ref Range | Performed | Pathologist | | | | | At | Signature | + + + + + + | WBC | 11.6 (H) | 4.0 - 11.0 K/uL | [facility] | | | | | | [facility] | | | | | | MEDICAL | | | | | | CENTER - | | | | | | LABORATORY | | + + + + + + | RBC | 3.90 (L) | 4.30 - 5.70 | [facility] | | | | | M/uL | [facility] | | | | | | MEDICAL | | | | | | CENTER - | | | | | | LABORATORY | | + + + + + + | Hemoglobin | 12.8 (L) | 13.5 - 18.0 | [facility] | | | | | g/dL | [facility] | | | | | [...] + | [facility] | [address] | [place] | [phone] | | [facility] | | [address] | | | - LABORATORY | | | | + + + + + | [facility] | [address] | [place], [place] | | | [facility] | | [address] | | | - LABORATORY | | [...] | | [facility] | | [address] | | | - BLOOD BANK | [...] + | [facility] | [address] | [place], [place] | [phone] | | [facility] | | [address] | | | - LABORATORY | | | | + + + + + | [facility] | [address] | [place] | | | [facility] | | [address] | | | - LABORATORY | | [...] + | [facility] | [address] | [place], [place] | [phone] | | [facility] | | [address] | | | - LABORATORY | | | | + + + + + | [facility] | [address] | [place] | | | [facility] | | [address] | | | - LABORATORY | | [...] mLs | | Surgical | | 1:200,000 0.5-1:977760 % | | 15 5:08 | | [...]
--- OUTSIDE RECORDS SUMMARY | ~2019-09-09 | XMS | Encounter Summary ---
Demographics + + + | Address | [address] | | | [place] [address] | + + + | Home Phone [...] | Organization | [facility] | | [...] [place], [place] | | | | | [address] | | + + + + + | Mao Rea | ECON | Unknown | | + + + + + | Meredith Rea | ECON | Unknown | | + + + + + | Iqra Medina | ECON | [address] | | | | | [place], [place] | | | | | [address] | | + + + + + | Maldonado Rea | ECON | Unknown | | + + + + + Care Team Providers + +------+ + | Care Marine Radio Installer And Servicer Name | Role | Phone | + [...] | | region | [place], | [address] | | | | | Pseudoarthro | [place] [address] | Phone: | | | | | sis of | Phone: | [phone] | | | | | lumbar spine | [phone] | Fax: | | | | | Lumbar | Fax: | [phone] | | | | | radiculopath | [phone] | | | | | | y [...] + + | 01/02/ | Office | [facility] | Ender Mora | S/P lumbar fusion | | 2019 | Visit | NE[address]URGERY [address] | [address] | (Primary Dx); | | | | [address] | [address] | 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 Ender Mora PA-C [address] [facility], [address] [place], [place] [id number] FAX: NEUROSURGERY FOLLOW-UP CHIEF COMPLAINT: Chief Complaint [...] would also like referral to a pain nv dicine Center. He asks if he should [...] L 4-5; Surgeon: Koby George MD; Location: [facility] MAIN OR LUMBAR SPINE SURGERY 12/02/2014 L2-3, L3-4, L4-5 LAIF, L2-3, L3-4, L4-5 Posterior Instrumentation, L2-3 Decompression; La terality: N/A; Surgeon: Koby George MD; Location: [facility] MAIN OR PROSTATE SURGERY 2003 [...] 1,000 mg by mouth 2 times daily. Inglis-3 Fatty Acids (FISH OIL) 1200 MG CAPS [...] has no apparent deficits with short or mcfp memory. CRANIAL NERVES: II: Acuity is intact. [...] [place] | | | | | | [address] | | | | | | | [...]
--- OUTSIDE RECORDS SUMMARY | ~2019-09-09 | XMS | Encounter Summary ---
Demographics + + + | Address | [address] | | | [place] [address] | + + + | Home Phone | | + + + | Preferred Language | Unknown | + + + | Marital Status | | + + + | Sikh Affiliation | Unknown | + + + | Race | Unknown | + + + | Ethnic Group | Unknown | + + + Author + + + | Author | [facility] | | | and [place] | + + + | Organization | [facility] [...] [place], [place] | | | | | [address] | | + + + + + | Mao Rea | ECON | Unknown | | + + + + + | Meredith Rea | ECON | Unknown | | + + + + + | Iqra Medina | ECON | [address] | | | | | [place], [place] | | | | | [address] | | + + + + + | Maldonado Rea | ECON | Unknown | | + + + + + Care Team Providers + +------+ + | Care Mechanic Welder Name | Role | Phone | + [...] | | [address] | [place] [address] | | | | | [place] | [phone] | | | | | [address] | | | | | | [phone] | | | +--------+ + + + [...] of this encounter Progress Notes Abigail Thornton, Insurance Agent - 01/01/2019 4:41 PM PST Outpatient Morphine [...] severe) The following information was obtained from [email or web address] on 01/01/19. The following information was obtained from [email or web address]/myAccess/saw/select [email or web address] on 01/01/19. [facility] was checked on 01/01/19 and no [...] [place] | | | | | | [id number] | | | | | | | | +--------+---------+ + + + documented as of this encounter Visit Diagnoses Not on filedocumented in this encounter"
--- OUTSIDE RECORDS SUMMARY | ~2019-09-09 | XMS | Encounter Summary ---
Demographics + + + | Address | [address] | | | [place] [address] | + + + | Home Phone [...] | Organization | [facility] [...] [place], [place] | | | | | [address] | | + + + + + | Mao Rea | ECON | Unknown | | + + + + + | Meredith Rea | ECON | Unknown | | + + + + + | Iqra Medina | ECON | [address] | | | | | [place], [place] | | | | | [address] | | + + + + + | Maldonado Rea | ECON | Unknown | | + + + + + Care Team Providers + +------+ + | Care Semiconductor Equipment Technician Name | Role | Phone | [...] + | 02/23/ | Telephone | [facility] | Koby George MD | Results, Imaging | | 2018 | | NEUROSURGERY [address] | [address] | | | | | [address] | [place] [address] | | | | | [place] | [phone] | | | | | [address] | | | | | | [phone] | | | +--------+ + + + [...] [place] | | | | | | [address] | | | | | | | | +--------+---------+ + + + documented as of this encounter Visit Diagnoses Not on filedocumented in this encounter"
--- OUTSIDE RECORDS SUMMARY | ~2019-09-09 | XMS | Encounter Summary ---
Demographics + + + | Address | [address] | | | [place] [address] | + + + | Home Phone | | + + + | Preferred Language | Unknown | + + + | Marital Status | | + + + | Yazidi Affiliation | Unknown | + + + | Race | Unknown | + + + | Ethnic Group | Unknown | + + + Author + + + | Author | [facility] | | | and [place] | + + + | Organization | [facility] | | | and [place] | + + + | Address | Unknown | + + + | Phone | Unavailable | + + + Support + + + + + | Name | Relationship | Address | Phone | + + + + + | Henny Rae | ECON | [address] | | | | | [place], [place] | | | | | [address] | | + + + + + | Mao Rea | ECON | Unknown | | + + + + + | Meredith Rea | ECON | Unknown | | + + + + + | Iqra Medina | ECON | [address] | | | | | [place], [place] | | | | | [address] | | + + + + + | Maldonado Rea | ECON | Unknown | | + + + + + Care Team Providers + +------+ + | Care Polygraph Technician Name | Role | Phone | [...] | | [address] | [place] [address] | | | | | [place] | [phone] | | | | | [address] | | | | | | [phone] | | | +--------+ + + + [...] [place] | | | | | | [id number] | | | | | | | | +--------+---------+ + + + documented as of this encounter Visit Diagnoses Not on filedocumented in this encounter"
[~2019-09-09 13:52] MED LIST changes: +AMBIEN5 MG PO; +ARAVA10 MG PO; +B-121000 MC2 PO; +CELLCEPT500 MG PO; +CYMBALTA60 MG PO; +FISH OIL 1,2001 EAC6 PO; +FLOVENT HFA12 G1 INH; +GLUCOSAMIN-CHO1 EACH PO; +LEVOTHYROXINE88 MCG PO; +LITHIUM CARBON300 M1 PO; +MELATONIN5 M2 PO; +METHYLFOLATE PO; +MIRALAX17 GM PO; +PROPRANOLOL HC160 MG PO; +SINEMET 10-1001 EACH PO; +Tumeric Curcumin PO; +VRAYLAR4.5 MG PO; +XOPENEX0.63 MG/3 INH; +ZOCOR40 MG PO
== END 2019-09-09 15:52 | disposition home or self-care (01) ==
LOC: ED 13:52
DX: M54.5 Low back pain (principal); G89.29 Other chronic pain; F32.9 Major depressive disorder, single episode, unspecified; E03.9 Hypothyroidism, unspecified; G47.30 Sleep apnea, unspecified; I10 Essential (primary) hypertension; E78.00 Pure hypercholesterolemia, unspecified; Z79.899 Other long term (current) drug therapy
CPT/HCPCS: 81001; 96372; 99283; J1885

== ENCOUNTER 2020-07-14 11:17 | Emergency (ER) | payer MEDICARE, OTHER ==
--- OUTSIDE RECORDS SUMMARY | ~2020-07-14 | XMS | Encounter Summary ---
Demographics + + + | Address | [address] | | | [place] [address] | + + + | Home Phone | | + + + | Preferred Language | Unknown | + + + | Marital Status | | + + + | Baptist Affiliation | Unknown | + + + | Race | White | + + + | Ethnic Group | Not or | + + + Author + + + | Author | [facility] | | | and [place] | + + + | Organization | [facility] | | | and [place] | + + + | Address | Unknown | + + + | Phone | Unavailable | + + + Support + + + + + | Name | Relationship | Address | Phone | + + + + + | Henny Rea | ECON | [address] | | | | | [place], [place] | | | | | [address] | | + + + + + | Mao Rea | ECON | Unknown | | + + + + + | Meredith Rea | ECON | Unknown | | + + + + + Care Team Providers + +------+ + | Care Trim And Burr Operator Name | Role | Phone | + +------+ + | Brandon Juarez MD | PCP | | + +------+ + Encounter Details +--------+ + + + + | Date | Type | Department | Care Team | Description | +--------+ + + + + | 03/24/ | Orders Only | [facility] | Ender Mora | S/P lumbar fusion | | 2017 | | NEUR[address]URGERY [address] | [address] | (Primary Dx) | | | | [address] [facility] [address] | [address] [place], [place] | | | | | [place], [place] | [address] | | | | | [address] | | | | | | [phone] | | | +--------+ + + + + Social History + + + +--------+ + | Tobacco Use | Types | Packs/Day | Years | Date | | | | | Used | | + + + +--------+ + | Former Smoker | Cigarettes | 2 | 20 | Quit: 10/31/1980 | + + + +--------+ + + +---+---+---+ | Smokeless Tobacco: | | | | | Never Used | | | | + +---+---+---+ + + +---------+ + | Alcohol Use | Drinks/Week | oz/Week | Comments | + + +---------+ + | No | | | | + + +---------+ + + + + | Sex Assigned at | Date Recorded | | | | + + + | Not on file | | + + + documented as of this encounter Functional Status + + + + | Functional Status | Response | Date of Assessment | + + + + | Are you deaf or do you have serious | Yes | 12/05/2014 | | difficulty hearing? | | | + + + + | Are you blind or do you have serious | No | 12/05/2014 | | difficulty seeing, even when wearing | | | | glasses? | | | + + + + | Do you have serious difficulty walking or | No | 12/05/2014 | | climbing stairs? (5 years old or older) | | | + + + + | Do you have difficulty dressing or bathing? | No | 12/05/2014 | | (5 years old or older) | | | + + + + | Because of a physical, mental, or emotional | No | 12/05/2014 | | condition, do you have difficulty doing | | | | errands alone such as visiting a doctor's | | | | office or shopping? [15 years old or | | | | older)] | | | + + + + + + + + | Cognitive Status | Response | Date of Assessment | + + + + | Because of a physical, mental, or emotional | No | 12/05/2014 | | condition, do you have serious difficulty | | | | concentrating, remembering, or making | | | | decisions? (5 years old or older) | | | + + + + documented as of this encounter Plan of Treatment Not on filedocumented as of this encounter Results XR Lumbar Spine 2 or 3 Vw (04/05/2017 12:15 PM PDT) + + | Specimen | + + | | + + + + + | Narrative | Performed At | + + + | XR LUMBAR SPINE 2 OR 3 VW 04/05/2017 12:15 PM HISTORY: s/p lumbar | [facility] | | fusion. COMPARISON: Multiple priors. FINDINGS: Again observed | [facility] | | are hardware for posterior fusion from L2 through the SI joints with | [facility] | | spacer hardware at these levels. There is stable moderate subsidence | - IMAGING | | of the spacer hardware along the superior endplate of L4. The | | | hardware are intact otherwise. Mild retrolistheses are visualized of | | | L2 over L3 and L3 over L4. There is minimal anterolisthesis of L4 | | | over L5. Bone mineralization is normal. Vertebral body height are | | | preserved with no evidence for compression fractures. Disc height are | | | maintained. Multilevel facet sclerosis and hypertrophy are present. | | | Visualized ribs and pelvic osseous structures show no acute findings. | | | A clip is anterior to L5. IMPRESSION - Stable posterior fusion | | | from L2 through the SI joints with stable moderate subsidence of the | | | spacer hardware along the superior endplate of L4. Dictated and | | | Signed by: Sen Polanco MD Electronically signed: 04/05/2017 12:36 | | | PM | | + + + + + | Procedure Note | + + | Alexis, Rad Results In - 04/05/2017 12:40 PM PDT XR LUMBAR SPINE 2 OR 3 VW 04/05/2017 | | 12:15 PMHISTORY: s/p lumbar fusion.COMPARISON: Multiple priors.FINDINGS:Again observed | | are hardware for posterior fusion from L2 through the SI jointswith spacer hardware at | | these levels. There is stable moderate subsidence of thespacer hardware along the | | superior endplate of L4. The hardware are intactotherwise. Mild retrolistheses are | | visualized of L2 over L3 and L3 over L4.There is minimal anterolisthesis of L4 over L5. | | Bone mineralization is normal.Vertebral body height are preserved with no evidence for | | compression fractures.Disc height are maintained. Multilevel facet sclerosis and | | hypertrophy arepresent. Visualized ribs and pelvic osseous structures show no acute | | findings. Aclip is anterior to L5.IMPRESSION -Stable posterior fusion from L2 through | | the SI joints with stable moderatesubsidence of the spacer hardware along the superior | | endplate of L4.Dictated and Signed by: Sen Polanco MD Electronically signed: 04/05/2017 | | 12:36 PM | |Disc height are maintained. Multilevel facet sclerosis and hypertrophy are | |present. Visualized ribs and pelvic osseous structures show no acute findings. A | |clip is anterior to L5. | | | |IMPRESSION - | |Stable posterior fusion from L2 through the SI joints with stable moderate | |subsidence of the spacer hardware along the superior endplate of L4. | | | |Dictated and Signed by: Sen Polanco MD | | Electronically signed: 04/05/2017 12:36 PM | + + + + + + + | Performing | Address | City[facility] | Phone Number | | Organization | | | | + + + + + | [facility] | [address] | [place] | [phone] | | [facility] | | [address] | | | - IMAGING | | | | + + + + + documented in this encounter Visit Diagnoses + + | Diagnosis | + + | S/P lumbar fusion - Primary Arthrodesis status | + + documented in this encounter"
--- OUTSIDE RECORDS SUMMARY | ~2020-07-14 | XMS | Encounter Summary ---
Demographics + + + | Address | [address] | | | [place] [address] | + + + | Home Phone | | + + + | Preferred Language | Unknown | + + + | Marital Status | | + + + | Jew Affiliation | Unknown | + + + | Race | White | + + + | Ethnic Group | Not or | + + + Author + + + | Author | [facility] | | | and [place] | + + + | Organization | [facility] | | | and [...] [place], [place] | | | | | [address] | | + + + + + | Mao Rea | ECON | Unknown | | + + + + + | Meredith Rea | ECON | Unknown | | + + + + + Care Team Providers + +------+ + | Care Road Mixer Operator Name | Role | Phone | + +------+ + | Brandon Juarez MD | PCP | | + +------+ + Reason for Visit Auth/Cert +--------+--------+ + + + + | Status | Reason | Specialty | Diagnoses / | Referred By | Referred To | | | | | Procedures | Contact | Contact | +--------+--------+ + + + + | Closed | | | Diagnoses | | [facility] | | | | | Other | | [facility] [address] | | | | | lordosis | | [address] | | | | | (acquired) | | [place], | | | | | Other | | [place] [address] | | | | | lordosis | | Phone: | | | | | (acquired) | | [phone] | | | | | Procedures | | Fax: | | | | | [place] | | [phone] | | | | | ARTHRODESIS | | | | | | | POSTERIOR/PO | | | | | | | STEROLATERAL | | | | | | | LUMBAR | | | | | | | FUSION-LUMBA | | | | | | | R DIRECT | | | | | | | LATERAL | | | | | | | INTERBODY | | | +--------+--------+ + + + + Encounter Details +--------+ + + + + | Date | Type | Department | Care Team | Description | +--------+ + + + + | 12/02/ | Hospital | [facility] | Koby George MD | Cancer (HCC) | | 2015 - | Encounter | [facility] | [address] | (Primary Dx); | | | | [address] [place] | [place] [address] | Degenerative disc | | 12/05/ | | [place] [address] | [phone] | disease, lumbar; | | 2014 | | [phone] | | Depression; | | | | | | Essential | | | | | | hypertension, | | | | | | benign; Former | | | | | | smoker; H/O colon | | | | | | cancer, stage I; | | | | | | Lumbar stenosis with | | | | | | neurogenic | | | | | | claudication; | | | | | | Rheumatoid | | | | | | arthritis(714.0) | | | | | | (HCC) | +--------+ + + + + Social [...] + + documented as of this encounter Last Filed Vital Signs + + + + + | Vital Sign | Reading | Time Taken | Comments | + + + + + | Blood Pressure | 160/70 | 12/05/2014 8:00 AM | | | | | PST | | + + + + + | Pulse | 57 | 12/05/2014 8:00 AM | | | | | PST | | + + + + + | Temperature | 36.5 C (97.7 F) | 12/05/2014 8:00 AM | | | | | PST | | + + + + + | Respiratory Rate | 20 | 12/05/2014 8:00 AM | | | | | PST | | + + + + + | Oxygen Saturation | 99% | 12/05/2014 8:00 AM | | | | | PST | | + + + + + | Inhaled Oxygen | - | - | | | Concentration | | | | + + + + + | Weight | 91.2 kg (201 lb) | 12/02/2014 11:00 AM | | | | | PST | | + + + + + | Height | 175.3 cm (5' 9") | 12/02/2014 11:00 AM | | | | | PST | | + + + + + | Body Mass Index | 29.68 | 12/02/2014 11:00 AM | | | | | PST | | + + + + + documented in this encounter Functional Status + + + [...] + + documented as of this encounter Discharge Summaries Ender Mora PA - 12/05/2014 7:25 AM PSTFormatting of this note might be differen t from the original. [facility] NEUROSURGERY DISCHARGE SUMMARY Patient Name: Uziel Rea Patient : 1945 PCP: Brandon Juarez Date of Admission: 12/02/2014 Date of Discharge: 12/05/2014 Flat back syndrome Lumbar degenerative disc disease Lumbar stenosis with claudication Lumbar spondylolisthesis Lumbar foraminal stenosis Lumbar radiculopathy Primary Discharge Dx: Flat back syndrome Lumbar degenerative disc disease Lumbar stenosis with claudication Lumbar spondylolisthesis Lumbar foraminal stenosis Lumbar radiculopathy Secondary Discharge Dx(s): Patient Active Problem List Diagnosis RHEUMATOID ARTHRITIS Sleep apnea, obstructive Depression Essential hypertension, benign REM sleep behavior disorder FATIGUE Arthritis Cancer Anxiety Hypothyroid Flat back syndrome Degenerative disc disease, lumbar Lumbar stenosis with neurogenic claudication Foraminal stenosis of lumbar region Lumbar radiculopathy Spondylolisthesis of lumbar region Facet arthropathy, lumbar Hard of hearing H/O colon cancer - 2003 Medical marijuana use Former Tobacco Smoker - quit 1980 Procedures Procedure(s): L2-3, L3-4, L4-5 LAIF, L2-3, L3-4, L4-5 Posterior Instrumentation, L2-3 Decompression Hospital Course: Post op the patient did well. He had difficulty with urination requiring a forbes cath. He was started on flomax and the forbes was D/C. His urination was acceptable. He worked well with PT and OT. His RA meds were being held for about 3 months. Condition on Discharge: Stable Discharge Medications: ; Current Discharge Medication List UNREVIEWED medications Dose Details Last Dose Taken METHOTREXATE SODIUM IJ START taking these medications Dose Details Last Dose Taken cyclobenzaprine (FLEXERIL) 10 mg tablet 10 mg Take 1 tablet by mouth every 8 hours as nee ded for Muscle spasms. Quantity: 90 tablet Refills: 3 Start date: 12/05/14 HYDROcodone-acetaminophen (NORCO) 5-325 mg per tablet 1-2 tablets Take 1-2 tablets by moe th every 4 hours as needed for Pain. Quantity: 120 tablet Refills: 0 Start date: 12/05/14 lactulose 10 g/15 mL solution 30 mLs Take 30 mLs by mouth Daily as needed for up to 10 da ys. Quantity: 240 mL Refills: 0 Start date: 12/05/14, End date: 12/15/14 tamsulosin (FLOMAX) 0.4 mg CAPS 0.4 mg Take 1 capsule by mouth daily (after breakfast). Quantity: 30 capsule Refills: 1 Start date: 12/05/14 CONTINUE these medications which have NOT CHANGED Dose Details Last Dose Taken alendronate (FOSAMAX) 70 mg tablet 70 mg Take 70 mg by mouth Once a week. Ascorbic Acid (VITAMIN C WITH TOM HIPS) 500 MG tablet 500 mg Take 500 mg by mouth Daily. Calcium Carbonate-Vit D-Min (CALCIUM 1200 PO) CHEW: Daily CVS FOLIC ACID PO TABS: 1 mg fish oil 1,000 mg capsule 2,000 mg Take 2,000 mg by mouth Daily. FLUNISOLIDE NA SOLN: As needed gabapentin (NEURONTIN) 400 mg capsule 800 mg Take 800 mg by mouth 3 times daily. Glucosamine-Chondroitin (COSAMIN DS PO) TABS: Daily levothyroxine (SYNTHROID, LEVOTHROID) 75 MCG tablet 75 mcg Take 75 mcg by mouth every mor zuly (before breakfast). lisinopril (PRINIVIL, ZESTRIL) 10 mg tablet 10 mg Take 10 mg by mouth Daily. lithium 300 mg capsule 300 mg Take 300 mg by mouth 3 times daily (with meals). loratadine (ALAVERT) 10 mg tablet 10 mg Take 10 mg by mouth Daily. medical marijuana (CANNABIS) inhalation 1-5 puffs Inhale 1-5 puffs into the lungs Twice daily as needed. mirtazapine (REMERON) 30 MG tablet 60 mg Take 60 mg by mouth nightly. Multiple Vitamins-Minerals (A THRU Z ADVANCED) TABS Omeprazole Magnesium (CVS OMEPRAZOLE) 20.6 (20 BASE) MG CPDR Daily sertraline (ZOLOFT) 100 mg tablet 200 mg Take 200 mg by mouth Daily. simvastatin (ZOCOR) 40 mg tablet 40 mg Take 40 mg by mouth Daily. ziprasidone (GEODON) 80 MG capsule 80 mg Take 80 mg by mouth 2 times daily (with breakfas t & dinner). Follow-Up: With PCP regarding Flomax to discuss possible DC of this med in the future. Follow up with Dr George in 4 weeks. documented in th is encounter Medications at Time of Discharge + + + +---------+ + + | Medication | Sig | Dispensed | Refills | Start | End Date | | | | | | Date | | + + + +---------+ + + | Ascorbic Acid | Take 500 mg by mouth | | 0 | 07/14/20 | | | (VITAMIN C WITH TOM | Daily. | | | 12 | | | HIPS) 500 MG tablet | | | | | | + + + +---------+ + + | Multiple | | | 0 | 06/15/20 | | | Vitamins-Minerals (A | | | | 11 | | | THRU Z ADVANCED) | | | | | | | TABS | | | | | | + + + +---------+ + + | alendronate | Take 70 mg by mouth | | 0 | 07/14/20 | | | (FOSAMAX) 70 mg | Once a week. | | | 12 | 6 | | tablet | | | | | | + + + +---------+ + + | Calcium | CHEW: Daily | | 0 | 07/14/20 | | | Carbonate-Vit D-Min | | | | 12 | 8 | | (CALCIUM 1200 PO) | | | | | | + + + +---------+ + + | CVS FOLIC ACID PO | TABS: 1 mg | | 0 | 07/14/20 | | | | | | | 12 | 7 | + + + +---------+ + + | cyclobenzaprine | Take 1 tablet by | 90 | 3 | 12/05/19 | | | (FLEXERIL) 10 mg | mouth every 8 hours | tablet | | 15 | 5 | | tablet | as needed for Muscle | | | | | | | spasms. | | | | | + + + +---------+ + + | fish oil 1,000 mg | Take 2,000 mg by | | 0 | | | | capsule | mouth Daily. | | | | 5 | + + + +---------+ + + | FLUNISOLIDE NA | SOLN: As needed | | 0 | 07/14/20 | 03/10/201 | | | | | | 12 | 5 | + + + +---------+ + + | gabapentin | Take 800 mg by mouth | | 0 | | | | (NEURONTIN) 400 mg | 3 times daily. | | | | 7 | | capsule | | | | | | + + + +---------+ + + | | TABS: Daily | | 0 | 06/15/20 | | | Glucosamine-Chondroi | | | | 11 | 5 | | tin (COSAMIN DS PO) | | | | | | + + + +---------+ + + | | Take 1-2 tablets by | 120 | 0 | 12/05/19 | | | HYDROcodone-acetamin | mouth every 4 hours | tablet | | 15 | 5 | | ophen (NORCO) 5-325 | as needed for Pain. | | | | | | mg per tablet | | | | | | + + + +---------+ + + | lactulose 10 g/15 | Take 30 mLs by mouth | 240 mL | 0 | 12/05/19 | | | mL solution | Daily as needed for | | | 15 | 5 | | | up to 10 days. | | | | | + + + +---------+ + + | levothyroxine | Take 75 mcg by mouth | | 0 | | | | (SYNTHROID, | every morning | | | | 8 | | LEVOTHROID) 75 MCG | (before breakfast). | | | | | | tablet | | | | | | + + + +---------+ + + | lisinopril | Take 10 mg by mouth | | 0 | | | | (PRINIVIL, ZESTRIL) | Daily. | | | | 5 | | 10 mg tablet | | | | | | + + + +---------+ + + | lithium 300 mg | Take 300 mg by mouth | | 0 | | | | capsule | 3 times daily (with | | | | 5 | | | meals). | | | | | + + + +---------+ + + | loratadine | Take 10 mg by mouth | | 0 | 07/14/20 | | | (ALAVERT) 10 mg | Daily. | | | 12 | 5 | | tablet | | | | | | + + + +---------+ + + | medical marijuana | Inhale 1-5 puffs | | 0 | | | | (CANNABIS) | into the lungs Twice | | | | 7 | | inhalation | daily as needed. | | | | | + + + +---------+ + + | METHOTREXATE | SOLN: As directed | | 0 | 07/14/20 | | | SODIUM IJ | | | | 12 | 7 | + + + +---------+ + + | mirtazapine | Take 60 mg by mouth | | 0 | | | | (REMERON) 30 MG | nightly. | | | | 5 | | tablet | | | | | | + + + +---------+ + + | Omeprazole | Daily | | 0 | 07/14/20 | | | Magnesium (CVS | | | | 12 | 7 | | OMEPRAZOLE) 20.6 (20 | | | | | | | BASE) MG CPDR | | | | | | + + + +---------+ + + | sertraline | Take 200 mg by mouth | | 0 | | | | (ZOLOFT) 100 mg | Daily. | | | | 5 | | tablet | | | | | | + + + +---------+ + + | simvastatin | Take 40 mg by mouth | | 0 | 07/14/20 | | | (ZOCOR) 40 mg tablet | Daily. | | | 12 | 6 | + + + +---------+ + + | tamsulosin | Take 1 capsule by | 30 | 1 | 12/05/19 | | | (FLOMAX) 0.4 mg CAPS | mouth daily (after | capsule | | 15 | 5 | | | breakfast). | | | | | + + + +---------+ + + | ziprasidone | Take 80 mg by mouth | | 0 | | | | (GEODON) 80 MG | 2 times daily (with | | | | 5 | | capsule | breakfast & dinner). | | | | | + + + +---------+ + + documented as of this encounter Progress Notes Libia Jo RN - 12/03/2014 5:30 PM PSTUp on chair for meal. at bedside. Alba salazar in assessment. Electronically signed by: Libia Jo RN 12/03/2014 18:44 Libia White RN - 12/03 3:40 PM PSTComplained of constipation. Miralax and senna were given. Patient ambula david in room and hallway with cane, one person SBA. LSO brace on with any activities. Electronically signed by: Libia Jo RN 12/03/2014 18:44 Libia White RN - 12/03 3:30 PM PSTPatient had high PVR 999ml. Forbes catheter was inserted. Electronically signed by: Libia Jo RN 12/03/2014 18:42 Ender Clifford PA - 12/03/2014 7:28 AM PST [facility] PROGRESS NOTE Pt. Name/Age/: Uziel Rea 69 y.o. 1945 Med. Record Number: [id number] Date of admission: 12/02/2014 Subjective: The patient chart and medications were reviewed in detail and the patient was s een and examined. The patient is doing well post op. He is ambulating. Pain is controlled. H&H is stable. Objective: Temp: 36.4 C (97.5 F) BP: 107/60 mmHg Pulse: 62 Resp: 18 SpO2: 99 % on Min/Max Temp past 24 hours:Temp Av.6 C (97.8 F) Min: 36.1 C (97 F) Max: 36. 9 C (98.4 F) Intake/Output Summary (Last 24 hours) at 12/03/14 0728 Last data filed at 12/03/14 0640 Gross per 24 hour Intake 4939 ml Output 3384 ml Net 1555 ml Wt. Admission: Weight: 91.173 kg (201 lb) Wt. Current: Weight: 91.173 kg (201 lb) Exam: General: A&O Respiratory:Cler Abdomen: benign Extremities: No edema Neurological: stable Diagnostic studies: Available data and images were reviewed personally. See reports. Signi ficant results and findings are addressed here or in the Assessment and Plan. Assessment and Plan: Sp lumbar fusion Patient Active Problem List Diagnosis RHEUMATOID ARTHRITIS Sleep apnea, obstructive Depression Essential hypertension, benign REM sleep behavior disorder FATIGUE Arthritis Cancer Anxiety Hypothyroid Flat back syndrome Degenerative disc disease, lumbar Lumbar stenosis with neurogenic claudication Foraminal stenosis of lumbar region Lumbar radiculopathy Spondylolisthesis of lumbar region Facet arthropathy, lumbar Hard of hearing H/O colon cancer - 2003 Medical marijuana use Former Tobacco Smoker - quit 1980 Plan: Ambulate and work with PT Anticipate dc tomorrow if he continues to do well Electronically signed by: Ender Mora, 12/03/2014 7:28 [facility] documented in th is encounter H&P Notes Koby George MD - 12/02/2014 12:54 [facility] HISTORY AND PHYSICAL UPDATE Pt. Name/Age/: Uziel Rea 69 y.o. 1945 Date of admission: 12/02/2014 The current H&P was reviewed. The patient was reexamined. Re-evaluation of the patient con firms the necessity for the scheduled procedure. No change has occurred in the patient s c ondition since the H&P was completed less than 30 days ago. I expect this patient will be hospitalized for post-operative care of post-operative care o f an IP-only procedure and expect the post-hospital plan to be determined once additional in formation is obtained. Electronically signed by: Koby George MD 12/02/2014 12:54 [facility] estEnder PA - 11/27/2014 8:33 AM PST DOM Sampson [address] [place] [address], [address] [place], [place] [address] FAX: NEUROSURGERY HISTORY AND PHYSICAL EXAMINATION CHIEF COMPLAINT: Chief Complaint Patient presents with Follow-up Pre-Op HISTORY OF PRESENT ILLNESS: The patient is a 69 y.o. male with the complaint of back pain and leg pain that began over 1 year ago. The patient has been previously seen by Dr. harika temple. We are currently plan to proceed with surgery with this gentleman. He is here to review his symptoms. The patient states his symptoms continue to be in his low back and radiating into his left leg. It has increased in intensity but the distribution of symptom s with same. He's had no other changes in his underlying health. Today he had multiple que stions regarding the surgery as well as the perioperative care. The symptoms began to worsen. He has pain in his back and pain down his left posterior l eg and anterior thigh as well. The anterior thigh pain is constant. The posterior leg pain to the foot is intermittent. The symptoms have been gradually worsening. He rates the pain as severe. The symptoms are daily, continuous. He describes the pain as aching, sharp, stabbing and throbbing. His symptoms improve with rest. His symptoms worsen with standing, sitting, walking, bending and twisting. He has tried PT, THC. PAST MEDICAL HISTORY: Past Medical History Diagnosis Date Depression Arthritis rheumatoid Cancer (HCC) 2003 colon cancer Anxiety Hypothyroid PAST SURGICAL HISTORY: Past Surgical History Procedure Date Prostate surgery prostate trim Colectomy 2003 Hernia repair 2010 umbilical hernia in 2010 and 2003 right groin hernia Kidney stone surgery 1988 Knee surgery 1979 bilat knee arthroscopy Shoulder surgery 1979 shoulder arthroscopic Tonsillectomy Eye muscle surgery eye muscle correction Tooth extraction 05/2014 CURRENT MEDICATIONS: Current Outpatient Prescriptions Medication Sig Dispense Refill alendronate (FOSAMAX) 70 mg tablet Take 70 mg by mouth Once a week. Ascorbic Acid (VITAMIN C WITH TOM HIPS) 500 MG tablet Take 500 mg by mouth Daily. Calcium Carbonate-Vit D-Min (CALCIUM 1200 PO) CHEW: Daily CVS FOLIC ACID PO TABS: 1 mg diclofenac-misoprostol (ARTHROTEC 75) 75-0.2 mg per tablet Take 1 tablet by mouth 2 yasmine es daily. fish oil 1,000 mg capsule Take 2,000 mg by mouth Daily. FLUNISOLIDE NA SOLN: As needed gabapentin (NEURONTIN) 400 mg capsule Take 800 mg by mouth 3 times daily. Glucosamine-Chondroitin (COSAMIN DS PO) TABS: Daily hydroxychloroquine (PLAQUENIL) 200 mg tablet Two tablets daily. InFLIXimab (REMICADE IV) SOLR: 8 vials leflunomide (ARAVA) 10 mg tablet Take 10 mg by mouth Daily. levothyroxine (SYNTHROID, LEVOTHROID) 75 MCG tablet Take 75 mcg by mouth every morning (before breakfast). lisinopril (PRINIVIL, ZESTRIL) 10 mg tablet Take 10 mg by mouth Daily. lithium 300 mg capsule Take 300 mg by mouth 3 times daily (with meals). loratadine (ALAVERT) 10 mg tablet Take 10 mg by mouth Daily. medical marijuana (CANNABIS) inhalation Inhale 1-5 puffs into the lungs Twice daily as needed. METHOTREXATE SODIUM IJ SOLN: As directed mirtazapine (REMERON) 30 MG tablet Take 60 mg by mouth nightly. Multiple Vitamins-Minerals (A THRU Z ADVANCED) TABS nabumetone (RELAFEN) 750 mg tablet Take 750 mg by mouth Daily as needed. OLANZapine (ZYPREXA) 15 MG tablet Half tablet daily olmesartan (BENICAR) 5 MG tablet Take 5 mg by mouth Daily. Omeprazole Magnesium (CVS OMEPRAZOLE) 20.6 (20 BASE) MG CPDR Daily sertraline (ZOLOFT) 100 mg tablet Take 200 mg by mouth Daily. simvastatin (ZOCOR) 40 mg tablet Take 40 mg by mouth Daily. sulfaSALAzine (AZULFIDINE) 500 mg tablet Take 1,500 mg by mouth 2 times daily. Tocilizumab (ACTEMRA IV) Inject into the vein. 800 units every 4 weeks ziprasidone (GEODON) 80 MG capsule Take 80 mg by mouth 2 times daily (with breakfast & dinner). ALLERGIES: No Known Allergies SOCIAL HISTORY: The patient reports that he quit smoking about 34 years ago. He has never used smokeless t obacco. He reports that he does not drink alcohol or use illicit drugs. FAMILY HISTORY: Family History Problem Relation Age of Onset Substance abuse Mother Mental illness Mother Suicide Mother Substance abuse Father Heart disease Father Heart attack Father REVIEW OF SYSTEMS GENERALLY: No fever, no night sweats, no anemia, no fatigue, no recent profound weight ch anges. EYES: No eye problems, + use of corrective lenses, no eye injury, no double vision, no bli ndness. EARS, NOSE, AND THROAT: No changes in taste or smell, no hearing difficulty, + ringing in the ears, no ear drainage, no dizziness, no voice changes, no difficulty swallowing, + signi ficant snoring, + sleep apnea, no sinus problems, no major dental work. NEUROLOGICALLY: Please see the review of systems discussed above in the history of present illness. In addition, the patient has numbness/pain of legs, awake with numbness/pain, hea d injury, pain in back. PSYCHIATRIC: + depression, no sleep disorders, + anxiety, no bipolar disorder, no psychoti c episodes. CARDIOVASCULAR: No heart attacks, no heart murmur, no heart fluttering, no chest pain, no ankle swelling. LUNG DISEASE: No shortness of breath, no cough, no tuberculosis, no bloody cough, no asth ma, no emphysema/COPD. GASTROINTESTINAL: No bowel disease, no nausea or vomiting, no rectal bleeding, no constipa tion, no stool incontinence, no liver disease, no gallbladder disease, no abdominal pain, no ulcers. KIDNEY DISEASE: No urinary frequency, no painful or difficult urination, no incontinence. ENDOCRINE: No diabetes, + thyroid disease, no osteopenia or osteoporosis, no breast draina ge. SKIN: No breast lumps, no skin changes, no rashes, no itches. HEMATOLOGIC/LYMPHATIC: No enlarged lymph nodes, no easy or unusual bleeding, no personal h istory of cancer. RHEUMATOLOGIC: + joint arthritis, + rheumatoid arthritis. PHYSICAL EXAMINATION: Blood pressure 132/72, pulse 54, resp. rate 18, height 1.753 m (5' 9"), weight 91.627 kg (2 02 lb). Body mass index is 29.82 kg/(m^2). GENERAL: Uziel Rea is in no acute distress with unlabored respirations. The patient does appear uncomfortable throughout the exam today. HEENT: HEAD/FACE: EYES: EARS: NASOPHARNYX: OROPHARNYX: Normocephalic and atraumatic. There are no areas of recent trauma. Normal sclerae without icterus. No drainage or tenderness. Clear without drainage. Clear without erythema. NECK (ANTERIOR): Supple and without palpable masses. CHEST: Clear to ausculation without crackles or wheeze. HEART: Regular rate and rhythm without murmurs. ABDOMEN: Soft, non-tender, non-distended, and without palpable masses. The patient is not obese. SPINE: There is no tenderness in the midline of the cervical or thoracic spine. There is m ajor palpable deformity of the spine with loss of lordosis. The lumbar spine shows there is tenderness in the midline of the L3, L4, L5 levels. To pal pation, there is no signficant myofascial tenderness. EXTREMITIES: No cyanosis, clubbing, or edema. Distal pulses are palpable. NEUROLOGICAL EXAM: MENTAL STATUS: The patient is awake, alert, and oriented. He follows simple and complex commands. He speech is fluent, he comprehends speech well, and he repeats well. He has no apparent deficits with short or exterminator memory. CRANIAL NERVES: II: Acuity is intact. Rudd are full to confrontation. III, IV, : The pupils are reactive. Extraocular movements are intact. No ptosis is note d. V: Facial sensation is intact and symmetric. VII: Facial movements are symmetric. VIII: Hearing is intact bilaterally. IX, X: The uvula and palate move appropriately. XI: Shrug is equal bilaterally. XII: Tongue protrusion is midline. MOTOR EXAM: (5 IS NORMAL) * Indicates pain limited MUSCLE/ MOVEMENT: RIGHT LEFT Hip Flexion 5 5 Hip Extension 5 5 Knee Flexion 5 4 Knee Extension 5 5 Dorsiflexion 5 5 Extensor Hallicus Longus 5 5 Plantarflexion 5 5 SENSORY EXAM: Sensory exam shows no diminished sensation to light touch or pain throughout the upper and lower extremities. REFLEXES: (2 OR 2+ IS NORMAL) REFLEX: RIGHT LEFT BICEPS 1 1 BRACHIORADIALIS 1 1 TRICEPS 1 1 PATELLAR 1 1 ACHILLES 1 1 GAIT: Gait is steady but stooped. PERIPHERAL NERVE/MISC: He has a right handed tremor. RADIOGRAPHIC REVIEW: The patient's imaging was reviewed in detail with the patient today during the visit. The images show severe L2-3 DDD and stenosis. He has severe foraminal narrowing at L2-3, L3-4, and L4-5. At L4-5, he has spondylolisthesis from severe facet degeneration. He has lost lo rdosis and has a flat back. ASSESSMENT: NEUROSURGICAL DIAGNOSES: Encounter Diagnoses Name Primary? Lumbar stenosis with neurogenic claudication Yes Spondylolisthesis of lumbar region Left lumbar radiculopathy Flat back syndrome Degenerative disc disease, lumbar Facet arthropathy, lumbar Foraminal stenosis of lumbar region GENERAL DIAGNOSES: Past Medical History Diagnosis Date Depression Arthritis rheumatoid Cancer (HCC) 2004 colon cancer Anxiety Hypothyroid PLAN: It was a pleasure meeting and evaluating this patient today, and I greatly appreciate the r eferral. The patient has lumbar disease with severe stenosis. I had a lengthy discussion with the patient about his surgical options. The patient wishes to continue with his surgical plans I discussed a L2-L5 fusion with decompression and instrumentation. I discussed the surgery and the techniques involved as well as the postoperative recovery today with the patient an d his We discussed the risks, alternatives, and benefits to surgical intervention with Mr. Rea in clinic. These risks included but were not limited to , stroke, heart attack, numbn ess, weakness, paralysis, failure of fusion, failure of hardware, subsidence, adjacent segme nt degeneration, cerebrospinal fluid leak, bleeding, infection, injury to surrounding tissue s and organs, injury from positioning, injury to the nerves, difficulty with breathing, diff iculty with swallowing, difficulty with voice change, and need for additional surgery. Surgical options were discussed and the technique to be employed was described in detail to him. All his questions were answered. We discussed that the goal of the surgery is to prevent progression of his disease, but it is not considered a cure. We also discussed that although some patients may obtain 100% sym ptom relief, it is realistic to anticipate that some symptoms will continue postoperatively despite a successful surgery. We also discussed that there is no guarantee that surgery will provide improvement in his c ondition, and indeed may even worsen the symptoms. We also discussed that in the course of the procedure the operative plan may be altered to include more, less, or different levels d epending upon findings in order to provide him with the best possible outcome. I recommended for this patient that he be fitted with a brace before surgery to improve his stability now to support his weak muscles and to reduce pain by restricting mobility. For multiple (more than 1 level fusions), I recommend the use of a bone growth stimulator p ostoperatively. This is to improve the probability and rate of fusion. ELECTRONICALLY SIGNED BY: DOM Sampson, 11/27/2014 8:33 documented in th is encounter Nursing Notes Barron Lyn RN - 12/02/2014 6:20 PM PSTBilateral araseli-orbital edemaElectronically sig val by Barron Lyn RN at 12/02/2014 6:20 PM PSTdocumented in this encounter Miscellaneous Notes Plan of Care - Emily Hernandez COTA - 12/06/2014 3:56 PM PSTProblem: General Plan of Care (Adult, Obstetrics) Goal: Care Plan Shift Summary & Review . Occupational Therapy Plan of Care Missed Visit (patient unavailable) Note Summary: Late entry for 12/05/14. Unable to see pt for tx,nursing in room and pt getting nisha dy for d/c Occupational Therapy will follow Uziel Rea (1-2 addt'l visits) until discharge from therapy or discharged from the hospital. Occupational Therapy Discharge Recommendations are: Recommended discharge disposition: home with family/caregiver;safety assist;mobility daisy t;ADL assist;can be alone for short periods Post discharge occupational therapy recommendation: no further OT Equipment Recommendations: Identified Problems Needing Skilled Intervention: Impaired ADLs, decreased fucntional mob ility, knowledge deficit Planned Interventions:Planned Therapy Interventions: ADL retraining;balance training;bed mo bility training;transfer training Patient Status/Goals Reflects last filed data of patient status; may be from multiple contributors. Basic ADLs Goal Lower Body Dressing Lower Body Dressing STG Status: New STG Lower Body Dressing: modified independent Goal Toileting Toilet Training STG Status: New STG Toileting: modified independent Instrumental ADLs Activity Tolerance Cognitive Linguistics Cognitive Tests Bed Mobility Transfers Goal Transfers Toilet Toilet Transfer STG Status: New STG Transfers Toilet: modified independent Goal Transfers Tub Tub Transfer STG Status: New STG Transfers Tub: supervision/set up Wheelchair Mobility Balance ROM Strength Additional Goals OT Status 1: New OT Goal 1: Good verbal recall of B-brace spinal precautions. To promote: Safe discharge home with family/caregiver lan of Care - Ivis Cason ch, RN - 12/05/2014 10:27 AM PSTProblem: General Plan of Care (Adult, Obstetrics) Goal: Care Plan Shift Summary & Review . Outcome: Adequate for Discharge Date Met: 12/05/14 Pt doing very well. Ambulating very well. Is independent with the cane. Voiding well. State s no BM yet but passing a lot of gas. States he will have a suppository before dc. Dc instru ctions given. Medications reviewed. All questions answered. Incision care and wound care tau ght to pt and . Pt dc'd to home with . Taken out via w/c to car. lan of Care - Ke francisco Maia M, PT - 12/05/2014 9:03 AM PSTProblem: General Plan of Care (Adult, Obstetrics) Goal: Care Plan Shift Summary & Review . Physical Therapy Plan of Care Treatment;Discharge Note Summary: Pt. up indpt to bathroom, d/c order in chart. Pt. was having PVR issues with urin ation. Has been up walking modified indpt with cane frequently. present. PT reviewed po stop grade B precautions/education and gradual progressive walking recommendations. Ambulate d x 200', up/down 4 steps with rail, cane, step over tech. PT did another review/demonstrati on of car t/f. /pt report having cane at home and bought walking sticks for pt. to use prn. Gait is steady, verbalizes understanding of postop educ/trg. Advised pt/ to con sean MD should questions/concerns arise after d/c. No further PT indicated. Physical Therapy will follow Uziel Rea daily until discharge from therapy or dischar ged from the hospital. Physical Therapy Discharge Recommendations are: Recommended discharge disposition: home with family/caregiver Post discharge physical therapy recommendation: Indpt walking program Equipment Recommendations: standard cane Identified Problems Needing Skilled Intervention: s/p L2-5 fusion, decreased functional mob ility and gait stabiltiy. Planned Interventions: Planned Therapy Interventions: bed mobility training;strengthening;t ransfer training;stair trg; HEP instruction. Goals PT Status 1: Met PT Goal 1: Pt. indpt in don/doffing LSO brace and verbalizing/demonstrating grade B precaut ions/postop education. To promote: Safe discharge home with family/caregiver;Safe return to prior level of functio n;Safe community reintegration;Safe return to prior leisure activities PT Status 2: Met PT Goal 2: Pt. will be indpt-modified indpt with bed mobility, transfers, gait with/w/o AD in halls x 300+ feet. To promote: Safe discharge home with family/caregiver;Safe return to prior level of functio n;Safe community reintegration;Safe return to prior leisure activities lan of Care - Bharti Kearney RN - 12/05/2014 5:36 AM PSTProblem: General Plan of Care (Adult, Obstetrics) Goal: Care Plan Shift Summary & Review . Outcome: Progressing A&O X 4. LSC, RA. BT X 4. VSS. HRR. Spinal incisions with 6 bandaids, CDI. Scattered bruisi ng to left flank. "B" grade LSO brace. Environmental Web Crawler equal and strong. Plantar and dorsi strong. Mu scles strengths 4/5 X 4. Cap refill < 3 sec. Pedal pulses palpable. IV to LFA, SL. Voiding well on toilet. Pain well controlled with oral pain medications. Independent in room, cane. Anticipated DC home today. Calls appropriately. -Bharti Richards RN lan of Care - Ivis Bella RN - 12/04/2014 8:01 PM PSTProblem: General Plan of Care (Adult, Obstetrics ) Goal: Care Plan Shift Summary & Review . Outcome: Progressing Pt doing very well with mobility. Up ind in room with cane. Up in the thomas with his . A mb frequently. Passing gas. Laxatives given. Forbes taken out but pt still having difficulty with high PVR's. Is able to void however. Spoke with Mg Mora and he wants pt to stay throu gh the noc and monitor PVR's to see how pt is emptying his bladder. Pt is disappointed but a greeable to stay. Pt taking pain medication and muscle relaxers fairly routinely and has goo d pain control. lan of Care - Megan George PTA - 12/04/2014 12:50 PM PSTProblem: General Plan of Care (Adult, Obstetrics ) Goal: Care Plan Shift Summary & Review . Outcome: Progressing IRF Physical Therapy Plan of Care Treatment Note Summary: Pt recieved isitting EOB. Went over how to do a car transfer. Tried to do an ac tual car transfer but got the directions mixed up. Went over the precautions and amb 4 00ft. Physical Therapy will follow Uziel Rea daily until discharge from therapy or dischar gejanna from the hospital. Physical Therapy Discharge Recommendations are: Recommended discharge disposition: home with family/caregiver Post discharge physical therapy recommendation: (Indpt walking program) Equipment Recommendations: standard cane Planned Interventions: bed mobility training;strengthening;transfer training (stair trg; H EP instruction) Patient Status/Goals Reflects last filed data of patient status; may be from multiple contributors. Bed Mobility Transfers Goal Transfers Toilet Toilet Transfer STG Status: New STG Transfers Toilet: modified independent Goal Transfers Tub Tub Transfer STG Status: New STG Transfers Tub: supervision/set up Additional Goals PT Status 1: New PT Goal 1: Pt. indpt in don/doffing LSO brace and verbalizing/demonstrating grade B precaut ions/postop education. To promote: Safe discharge home with family/caregiver;Safe return to prior level of functio n;Safe community reintegration;Safe return to prior leisure activities PT Status 2: New PT Goal 2: Pt. will be indpt-modified indpt with bed mobility, transfers, gait with/w/o AD in halls x 300+ feet. To promote: Safe discharge home with family/caregiver;Safe return to prior level of functio n;Safe community reintegration;Safe return to prior leisure activities lan of Care - Emily fernández COTA - 12/04/2014 11:37 AM PSTProblem: General Plan of Care (Adult, Obstetrics ) Goal: Care Plan Shift Summary & Review . Occupational Therapy Daily Treatment Note Patient Information Patient Name: Uziel Rea Date of : 1945 Age: 69 y.o. Precaution/special problems: Precautions/Limitations: fall precautions;spinal precautions ( B-Brace precautions) L UE weight-bearing Status: LUE Weight-Bearing Status: (No overhead work) R UE weight-bearing Status: RUE Weight-Bearing Status: (No overhead work) L LE weight-bearing Status: LLE Weight-Bearing Status: full weight-bearing R LE weight-bearing Status: RLE Weight-Bearing Status: full weight-bearing Start Time: 0940 Stop time: 1010 Time Calculation: 30 minutes Missed Treatment Time: minutes Total Treatment Time: 30 minutes TimedTreatment Code Minutes: 30 minutes Subjective: " I may be going today or tomorrow but we still need to get an adjustable showe r chair and a sock aid" Objective: Pain: Observed/Reported Pain: No Management Interventions for all patient populations: multiple medication modalities Education: Spine precautions,home adaptations and A/E needs Treatment Provided: Seen for fxl mobility and training provided in tub shower t/f's w/ present for training Patient Status/Goals Reflects last filed data of patient status; may be from multiple contributors. FIM: Assessment: Ambulated to/from tub room mod I with spc,stepped in/out of tub using grab bars SBA/cues/t/f'd>shower chairand demo good standing balance. Recommended to provide Supe rvision during shower t/f''s as pt required cuing. Pt's reported she will get an adusta ble shower chair and sock aid as they already have regulator tester, toilet riser, and grab bars in t ub shower at home. Occupational Therapy Discharge Recommendations are: Recommended discharge disposition: Recommended Discharge Disposition(OT): home with family /caregiver;safety assist;mobility assist;ADL assist;can be alone for short periods Post discharge occupational therapy recommendation: Post D/C Occupational Therapy Recommen dations: no further OT Plan for next treatment: 1P,NK,review A/E Electronically signed by: ENRICO Almaraz, 12/04/2014 11:21 lan of Care - Angelica Sims RN - 12/04/2014 8:00 AM PSTProblem: General Plan of Care (Adult, Obstetrics) Goal: Care Plan Shift Summary & Review . Outcome: Progressing Good pain control w/oral meds supplementing w/IV morphine. Pt states he will be unable to t whitney RA meds for 3 months. He also uses marijuana 4x/day for pain control at home. Ambulate s w/cane and sba in thomas. Applies own LSO brace. Plan is to remove forbes today and begin vo iding trials lan of Care - Libia Jo RN - 12/03/2014 8:00 PM PSTProblem: General Plan of Care (Adult, Obstetrics) Goal: Care Plan Shift Summary & Review . Outcome: Progressing Ambulated in room and hallway with one person CGA, using cane. LSO brace on with any activ ities. Back dressing CDI. High PVR and Forbes catheter was placed. Electronically signed by: Libia Jo RN 12/03/2014 20:00 lan of Leonie Marsh - 12/03/2014 5:02 PM PSTDischarge Planning: Uziel lives in [place] with his spouse, Henny. Uziel is using a Cane to get around. Both Henny and Uziel has declined home health. Henny will help with any needs. Henny will transport home at discharge. lan of Care - Marlene Adan DREDGE MASTER - 12/03/2014 4:29 PM PSTProblem: General Plan of Care (Adult, Obstetrics) Goal: Care Plan Shift Summary & Review . BS clear. Oxygen titrated to RA 92%. Using inspirometer with good effort and on own. Dry cough. lan of Care - Angeles Landa OT - 12/03/2014 12:07 PM PST Problem: General Plan of Care (Adult, Obstetrics) Goal: Care Plan Shift Summary & Review . Occupational Therapy Acute Initial Evaluation Note Patient Information Patient Name: Uziel Rea Date of : 1945 Age: 69 y.o. History Encounter Diagnoses Code Name Primary? 199.1 Cancer (HCC) Yes 722.52 Degenerative disc disease, lumbar 311 Depression 401.1 Essential hypertension, benign V15.82 Former smoker V10.05 H/O colon cancer, stage I 724.03 Lumbar stenosis with neurogenic claudication 714.0 Rheumatoid arthritis(714.0) ([facility]) Date of Onset: 12/02/14 Referring Physician: Dr. George/VIRY Mora Past Medical History Diagnosis Date Depression Arthritis rheumatoid Cancer ([facility]) 2003 colon cancer Anxiety Hypothyroid Hard of hearing bilateral hearing aids Past Surgical History Procedure Date Prostate surgery prostate trim Colectomy 2004 Hernia repair 2010 umbilical hernia in 2010 and 2003 right groin hernia Kidney stone surgery 1988 Knee surgery 1979 bilat knee arthroscopy Shoulder surgery 1979 shoulder arthroscopic Tonsillectomy Eye muscle surgery eye muscle correction Tooth extraction 05/2014 No Known Allergies Precaution/special problems: Precautions/Limitations: fall precautions;spinal precautions ( B-Brace precautions) L UE weight-bearing Status: LUE Weight-Bearing Status: (No overhead work) R UE weight-bearing Status: RUE Weight-Bearing Status: (No overhead work) L LE weight-bearing Status: LLE Weight-Bearing Status: full weight-bearing R LE weight-bearing Status: RLE Weight-Bearing Status: full weight-bearing EVALUATION: SUBJECTIVE: History of Presenting Problem: Uziel Rea is a 69 y.o. who [facility] & leg pain x 1 year. Low back pain & radiating into L leg. Worsening sx. S evere DDD L2-3, foraminal narrowing L2-5 w/ spondylolisthesis @ L4-5. Pt is s/p L2-5 LAIF, L4-5 posterior instrumentation, L2-3 decompression. B-Brace. Attended Spine Class. OT Diagnosis: Impaired ADLs, decreased fucntional mobility, knowledge deficit Functional Limitations: Impaired ADLs, decreased functional mobility, impaired safety w/ A DLs/mobility Previous Level of Function: Independent w/ ADLs & mobility but w/ severe pain, ambulated w/ SPC. Living Environment/Accessibility: No concerns. They have toilet hygiene aid, rasied toilet seat, toilet safety frame, shower seat (needs replacement-too short), dressing stick, hand- held shower. Patient s Goals: Hoping to go home tomorrow. OBJECTIVE : Pain: Observed/Reported Pain: Yes Pain Management Interventions for all patient populations: multiple medication modalities Response to Pain Intervention: pain reduction Presence Of Pain: complains of pain/discomfort Location - Side: Bilateral: Location - Orientation: lower Location: back Pain Radiation To: hips Pain Rating: Rest (numeric): 7 Pain Rating: Activity: 6 Nonverbal Indicators Of Pain: grimace Pain Frequency: intermittent Pain Quality: burning;aching Factors That Aggravate Pain: activity;movement Factors That Relieve Pain: medications;repositioning;rest Pain Management Interventions for all patient populations: multiple medication modalities Observation/Posture/Alignment: Demonstrates some hyperextension @ hips when standing. Enco uraged to bring shoulder forward over hips. ROM: Gross UE ROM: Left: WFL Right: WFL Strength Gross UE: Left: WFL Right: WFL Sensation Intact Edema None significant. Appears mildly bloated but no significant edema. Balance Fair+ Activity Tolerance Fair Wheelchair Mobility n/a FIM: FIM Transfers Toilet: 0 Toilet Transfer Evidence: 0 Did Not Occur Tub / Shower: 4 Tub/Shower Score Evidence: 4 Steadying;5 Safety Supervision;5 Verbal Cues;6 Extra Time FIM Self Care Dressing - Upper Body: 5 Dressing Upper Score Evidence: 5 Verbal Cues;5 Safety Supervision;6 Extra Time Dressing - Lower Body: 5 Dressing Lower Score Evidence: 5 Verbal Cues;5 Safety Supervision;6 Extra Time;6 Sock Aid;6 Student Life Coordinator;5 Get Clothing Toiletin Toileting Score Evidence: 0 Did Not Occur Assessment: Occupational therapy orders received and acknowledged. Objective impairments i nclude impaired ADLs, decreased functional mobility, knowledge deficit re spinal precautions . These impairments are causing functional limitations with patient s inability to safely complete ADLs & functional mobility. Complexities contributing to the need for skilled thera py include DDD, lumbar; medical marijuana use; CA. Prognosis: good Rehabilitation potential: Patient demonstrates good potential to achieve established goals to address the documented impairments by participating in skilled occupational therapy serv ices. Goals: BADL Goals: Lower Body Dressing STG Status: New STG Lower Body Dressing: modified independent Toilet Training STG Status: New STG Toileting: modified independent Transfer Goals: Toilet Transfer STG Status: New STG Transfers Toilet: modified independent Tub Transfer STG Status: New STG Transfers Tub: supervision/set up Additional Goals: New Good verbal recall of B-brace spinal precautions. Safe discharge home with family/caregiver PLAN: ADL retraining;balance training;bed mobility training;transfer training Occupational Therapy will follow Uziel Rea (1-2 addt'l visits) Anticipated days that therapy will be provided: 12/05/14 Occupational Therapy Discharge Recommendations are: Recommended discharge disposition: home with family/caregiver;safety assist;mobility daisy t;ADL assist;can be alone for short periods Post discharge occupational therapy recommendation: no further OT Equipment Recommendations: Replace shower seat w/ height adjustable Patient and/or family has indicated understanding of treatment needs and actively participa david in the creation of this plan for care. Today's Treatment Start Time: 1105 Stop time: 1135 Time Calculation: 30 minutes Missed Treatment Time: minutes Total Treatment Time: 30 minutes TimedTreatment Code Minutes: 15 minutes Objective: Resting in bed. @ bedside. Ready to get up and get dressed. Supine-sit w/ supervision. Dressed @ EOB, utilized regulator tester & sock-aid for LB. Ambulated w/ SBA & SPC to bathtub, intermittent CGA. Verbal cues to stand w/ decreased hyperextension @ hips. CGA & verbal cues for standing tub transfer. Pt would benefit from 1-2 addt'l OT visits to con firm needs, review precautions & uses of AE, reinforce safety w/ ambulation. present & very supportive. Education: Post-op spinal precautions; safety; AE for LB dressing Treatment Provided: ADL training; functional mobility; safety awareness Assessment: Pt post-op spinal fusion. Attended Spine Class and they have prepared for post -op needs w/ AE/DME. Mild balance deficits noted w/ ambulation requiring intermittent CGA & verbal cues for posture & safety. indicates his gait is however much improved from pr e-surgery. 1-2 addt'l OT visits for needs. Plan for next treatment: 1P,JM.ADL review, precautions review, tub transfer Electronically signed by: Angeles Martin OT, 12/03/2014 11:54 lan of Care - Maia Winters, PT - 12/03/2014 10:20 AM PSTProblem: General Plan of Care (Adult, Obstetrics) Goal: Care Plan Shift Summary & Review . Physical Therapy Plan of Care Initial Evaluation;Treatment Note Summary: Pt. eval/tx completed. Pt. standing in room with LSO donned while TRAINING REPRESENTATIVE changing be dding. Ambulated w/o AD x 75', SBA and quite steady. Using SPC prior to surgery so PT offerr ed cane and pt. desired. Ambulated to gym, up/down 4 steps with 1 rail, cane and SB-CGA, mark p over tech. Ambulated in halls x additional 300', SBA. One mild LOB when looking into rooms as he passed by. Sat in bedside chair after activity. PT reviewed grade B postop precaution s/education and pt. able to verbalize well on review, /husb attended spine class. Pt. to walk with Nrsg few more times, then likely ready for indpt in halls if continues safe/stabl e, discussed with RN/OT. PT to return for 1 more visit in a.m. to assess bed mobility and en sure consistency with safe mobility. Physical Therapy will follow Uziel Rea daily until discharge from therapy or dischar ged from the hospital. Physical Therapy Discharge Recommendations are: Recommended discharge disposition: home with family/caregiver Post discharge physical therapy recommendation: Indpt walking program Equipment Recommendations: standard cane Identified Problems Needing Skilled Intervention: s/p L2-5 fusion, decreased functional mob ility and gait stabiltiy. Planned Interventions: Planned Therapy Interventions: bed mobility training;strengthening;t ransfer training (stair trg; HEP instruction) Goals PT Status 1: New PT Goal 1: Pt. indpt in don/doffing LSO brace and verbalizing/demonstrating grade B precaut ions/postop education. To promote: Safe discharge home with family/caregiver;Safe return to prior level of functio n;Safe community reintegration;Safe return to prior leisure activities PT Status 2: New PT Goal 2: Pt. will be indpt-modified indpt with bed mobility, transfers, gait with/w/o AD in halls x 300+ feet. To promote: Safe discharge home with family/caregiver;Safe return to prior level of functio n;Safe community reintegration;Safe return to prior leisure activities p Note - Koby George MD - 12/02/2014 5:47 PM PST Operative Note Uziel eRa 69 y.o. male 1945 [id number] Proc. Date 12/02/2014 Preop Dx Flat back syndrome Lumbar degenerative disc disease Lumbar stenosis with claudication Lumbar spondylolisthesis Lumbar foraminal stenosis Lumbar radiculopathy Postop Dx same Osteopenia L4, L5 Procedure 1. Minimally invasive lumbar fusion 2. Posterolateral arthrodesis L2, L3, L4, and L5 3. Anterior lumbar interbody arthrodesis L2-3, L3-4, L4-5 4. Posterior spinal instrumentation L2-L5 with use of Precept 5. Placement of PEEK interbody spacer L2-3, L3-4 and L4-5 6. L2 laminectomy, L2-3 facetectomy, L2 and L3 foraminotomy for decompression of L2 and L3 nerves 7. Microsurgical technique with use of operating microscope Anesthesia General, Dr. Church Surgeon Surgeon(s) and Role: * Koby George MD - Primary * DOM Lo - A ssisting EBL 654 Findings Soft bone L4 and L5. Sclerotic bone L2, L3. Severe L2-3 stenosis. Complications none Specimens * No specimens in log * Drains Drain/Device Site 12/02/14 4818 #1 posterior lumbar spine collapsible closed device (Ac tive) Operative details: After obtaining consent, the patient was taken to the operating room and placed under gener al anesthesia. He was then positioned in a lateral position with the right side up. He was c onnected to the neurovision neuromonitoring system and secured to the bed with tape. His fac e, neck, chest and extremities positioned and padded appropriately. His flank was prepped a nd draped in standard fashion and a timeout was performed. All members of the surgical team agreed with the timeout. Fluoroscopy was then used to localize the levels of L2-L5 on lateral fluoroscopy, and a ski n incision was made in the left lateral flank approximately 3.5 cm in length. Subcutaneous t issues were dissected with bovie and blunt dissection to the abdominal wall. The musculature was divided with tonsils and then finger sweeping was used to develop the retroperitoneal s pace. An initial dilator was then inserted onto the surface of the psoas at L4-5 and neuromo nitoring was performed. The nerves were identified posteriorly at 20. Sequential dilatation and monitor was performed and then a retractor was inserted over the dilators. The light watson rces were connected and the area was inspected visually and with a ball tip neuro probe. No nerves were identified. The sandy was then inserted into the posterior blade, and the retract or was opened anteriorly. The disc at L4-5 was then removed in a piecemeal fashion by first incising it and then usin g Mamadou, broaches, curretes, and pituitary rongeurs. The endplates were prepared for arthrod esis. Trials were then inserted and a 10 degree by 14 by 22 by 60 mm spacer was determined t o be the appropriate size. A PEEK spacer was prepared filling it with Osteocel/Crisp and t hen tamping it into the interspace at L4-5. The retractor was then removed obtaining hemosta sis along the tract. An initial dilator was then inserted onto the surface of the psoas at L3-4 and neuromonitor ing was performed. The nerves were identified posteriorly at >20. Sequential dilatation and monitor was performed and then a retractor was inserted over the dilators. The light sources were connected and the area was inspected visually and with a ball tip neuro probe. No nerv es were identified. The sandy was then inserted into the posterior blade, and the retractor w as opened anteriorly. The disc at L3-4 was then removed in similar, piecemeal fashion by first incising it and th en using Mamadou, broaches, curretes, and pituitary rongeurs. The endplates were prepared for arthrodesis. Trials were then inserted and a 10 degree by 12 by 22 by 55 mm spacer was deter mined to be the appropriate size. A PEEK spacer was prepared filling it with Osteocel/Graft on and then tamping it into the interspace at L3-4. Unfortunately there was subsidence into the soft endplate of L4 and some bleeding from the endplate that was intially significant. It was controlled with flowseal and packing. The retractor was then removed obtaining hemo stasis along the tract. An initial dilator was then inserted onto the surface of the psoas at L2-3 and neuromonitor ing was performed. The nerves were identified posteriorly at >20. Sequential dilatation and monitor was performed and then a retractor was inserted over the dilators. The light sources were connected and the area was inspected visually and with a ball tip neuro probe. No nerv es were identified. The sandy was then inserted into the posterior blade, and the retractor w as opened anteriorly. The disc at L2-3 was then removed in similar, piecemeal fashion by first incising it and th en using Mamadou, curretes, and pituitary rongeurs except that this disc space was severely co llapsed to the point of near bone on bone. The endplates were prepared for arthrodesis. Tri als were then inserted and a 10 degree by 8 by 22 by 55 mm spacer was determined to be the a ppropriate size. A PEEK spacer was prepared filling it with Osteocel/Crisp and then tampin g it into the interspace at L2-3. The retractor was then removed obtaining hemostasis along the tract. The fascia was then closed bilaterally with 0 Vicryl sutures, followed by closure of the sk in with a layer of 2-0 and 3-0 Vicryl sutures followed by closure of the skin with skin glue . The wound was dressed with steristrips and a Band-Aid. He was then positioned in a prone position on the Porter table with his face, neck, chest and extremities positioned and padded appropriately. His back was prepped and draped in sta ndard fashion and a timeout was performed. All members of the surgical team agreed with the timeout. Fluoroscopy was then used to localize the level of L2-L5 on lateral fluoroscopy, and then 4 skin incisions were made approximately 2.5 cm in length inferiorly and 2.5 cm in length sup eriorly, approximately 3.75 cm off the midline in a paramedian fashion on both sides. Subcut aneous tissues were made hemostatic with Bovie cautery. Pedicle cannulas were then guided i nto pedicles at L2-L5 using AP fluoroscopic guidance and lateral confirmation. There were n o breaches to the canal or the pedicles. Bone marrow was aspirated in the pedicles and then the cannulas were removed after cannulating them with K-wires. The wires were secured to th e drape. Working between the wires starting on the patient's right side, a METRx tube was docked nohelia n on the L2-3, L3-4, and L4-5 lamina and facet complexes. Bovie cautery was used to expose the lamina of L2, L3, L4, and L5, and the L2-3, L3-4, and L4-5 facets. High-speed drill was used to decorticate it, and then morselized local bone autograft obtained from the drilling and cancellous chips with bone marrow aspirate were packed in the posterolateral aspect of the spine along the decorticated bone. This completed the posterolateral fusion from L2-L5. Attention was then paid to the left where a laminofacetectomy was performed at L2-3. A MET Rx tube was docked on the patient's lamina and facet complex and then a high-speed drill was used to drill through the lamina and the pars segment using the microscope for microsurgica l dissection. The drilling allowed for an en bloc removal of the L2 lamina and the L2 infer ior facet, which was harvested for planned arthrodesis. The medial L3 superior facet was th en removed with a Kerrison as well as the superior lamina of L3 decompression the canal and L3 root. The contralateral ligament was removed with a Kerrison until the opposite L3 root could be seen. The ligamentum was then taken down with a microhook and Kerrison rongeur, de compressing the underlying dura fully. There was some epidural scarring but it was not flor re. The exiting L2 nerve and traversing L3 nerves were then felt to be free of compression. The previously placed wires on this side were then used for placement of instrumentation. The pedicles were undertapped and then instrumented. 6.5 x 50 mm Precept screws were insert ed at L2 and L3. 7.5 x 60 mm screws were inserted at L4 and 7.5 x 55 mm screws were inserte d at L5. The screw towers were aligned, and then a 110 mm suzanne was passed through the towers and successfully reduced down bilaterally. Set screws were inserted and then final tighten ing of the set screws was performed. Then the towers and suzanne passer were removed fully. Fin al fluoroscopic images confirmed appropriate placement of instrumentation. A drain was placed in the epidural space where epidural blood was evacuated, and it was georgina neled out the skin. The fascia was then closed bilaterally with 0 Vicryl sutures, followed b y closure of the skin with a layer of 2-0 Quill sutures. The wounds were dressed with steris trips/Band-Aids. The drain was secured with a Band-Aid and Tegaderm. All counts were reported as correct. The patient tolerated the procedure and was transferr ed to the recovery room in stable condition. Electronically signed by: Koby George MD 12/02/2014 17:44 [facility] rief Op Note - Musa George MD - 12/02/2014 5:44 PM PSTFormatting of this note might be different from the origin al. Brief Operative Note Uziel Silas Rea 69 y.o. male 1945 [id number] Proc. Date 12/02/2014 Preop Dx Flat back syndrome Lumbar degenerative disc disease Lumbar stenosis with claudication Lumbar spondylolisthesis Lumbar foraminal stenosis Lumbar radiculopathy Postop Dx same Osteopenia L4, L5 Procedure 1. Minimally invasive lumbar fusion 2. Posterolateral arthrodesis L2, L3, L4, and L5 3. Anterior lumbar interbody arthrodesis L2-3, L3-4, L4-5 4. Posterior spinal instrumentation L2-L5 with use of Precept 5. Placement of PEEK interbody spacer L2-3, L3-4 and L4-5 6. L2 laminectomy, L2-3 facetectomy, L2 and L3 foraminotomy for decompression of L2 and L3 nerves 7. Microsurgical technique with use of operating microscope Anesthesia , Dr. Church Surgeon Surgeon(s) and Role: * Koby George MD - Primary * DOM Lo - A ssisting EBL 654 Findings Soft bone L4 and L5. Sclerotic bone L2, L3. Severe L2-3 stenosis. Complications none Specimens * No specimens in log * Drains Drain/Device Site 12/02/14 6517 #1 posterior lumbar spine collapsible closed device (Ac tive) Electronically signed by: Koby George MD 12/02/2014 17:44 [facility] lan of Care - Jerri Silva, PT - 12/02/2014 5:33 PM PSTProblem: General Plan of Care (Adult, Obstetrics) Goal: Care Plan Shift Summary & Review . Physical Therapy Plan of Care Missed Visit (surgery) Note Summary: Pt still in surgery. Will eval tomorrow. documented in thi s encounter Plan of Treatment Not on filedocumented as of this encounter Procedures + +--------+ + + + | Procedure Name | Priori | Date/Time | Associated Diagnosis | Comments | | | ty | | | | + +--------+ + + + | PRODUCT: RBC | Routin | 12/06/2014 | | Results for this | | | e | 7:05 AM | | procedure are in the | | | | PST | | results section. | + +--------+ + + + | PRODUCT: RBC | Routin | 12/06/2014 | | Results for this | | | e | 7:04 AM | | procedure are in the | | | | PST | | results section. | + +--------+ + + + | XR LUMBAR SPINE 2 OR | STAT | 12/03/2014 | | Results for this | | 3 VW | | 7:20 AM | | procedure are in the | | | | PST | | results section. | + +--------+ + + + | CBC NO DIFFERENTIAL | Routin | 12/03/2014 | | Results for this | | | e | 6:21 AM | | procedure are in the | | | | PST | | results section. | + +--------+ + + + | TYPE AND SCREEN | Routin | 12/02/2014 | | Results for this | | | e | 3:25 PM | | procedure are in the | | | | PST | | results section. | + +--------+ + + + | FUSION-LUMBAR DIRECT | | 12/02/2014 | Other lordosis | | | LATERAL INTERBODY | | 1:10 PM | (acquired) | | | | | PST | | | + +--------+ + + + +---+--------+ | | Case | | | Notes | | | | | | C-ARM, | | | | | | DRILL, | | | | | | MICROS | | | COPE, | | | METRX, | | | XLIF, | | | | | | PRECEP | | | T, | | | GRAFTO | | | N 10, | | | OSTEOC | | | EL 10, | | | CHIPS | | | 15, | | | JACKSO | | | N AXIS | | | | | | FRAME, | | | OSI | | | AXIS | | | FLAT | | | TOP, | | | NEUROV | | | ISIONE | | | STIMAT | | | ED | | | TIME: | | | 4.5 | | | HOURS | +---+--------+ | | | | | Specia | | | l | | | Needs | | | LETA | | | - | | | NUVASI | | | VE | +---+--------+ + +--------+ +---+ + | PTT | Routin | 12/02/2014 | | Results for this | | | e | 12:05 PM | | procedure are in the | | | | PST | | results section. | + +--------+ +---+ + | PROTIME INR | Routin | 12/02/2014 | | Results for this | | | e | 12:05 PM | | procedure are in the | | | | PST | | results section. | + +--------+ +---+ + documented in this encounter Results PRODUCT: RBC (12/06/2014 7:05 AM PST) + + + + + + | Component | Value | Ref Range | Performed | Pathologist | | | | | At | Signature | + + + + + + | Product | RBC Leukocytes Reduced , | | [facility] | | | Code | Container 1 | | [facility] | | | | | [facility] | | | | | | [facility] - | | | | | | BLOOD BANK | | + + + + + + | UNIT # | [id number] | | [facility] | | | | | | [facility] | | | | | [facility] | | | | | | [facility] - | | | | | | BLOOD BANK | | + + + + + + | UNIT ABO | O | | [facility] | | | | | | [facility] | | | | | | [facility] | | | | | | [facility] - | | | | | | BLOOD BANK | | + + + + + + | UNIT RH | POS | | [facility] | | | | | | [facility] | | | | | | [facility] | | | | | | [facility] - | | | | | | BLOOD BANK | | + + + + + + | CROSSMATCH | Compatible | | [facility] | | | INTERP | | | [facility] | | | | | | [facility] | | | | | | [facility] - | | | | | | BLOOD BANK | | + + + + + + | Unit Status | Returned | | [facility] | | | | | | [facility] | | | | | | [facility] | | | | | | [facility] - | | | | | | BLOOD BANK | | + + + + + + + + | Specimen | + + | | + + + + + + + | Performing | Address | City/State/Zipcode | Phone Number | | Organization | | | | + + + + + | [facility] | [address] | [place] | | | [facility] | | [address] | | | - BLOOD BANK | | | | + + + + + PRODUCT: RBC (12/06/2014 7:04 AM PST) + + + + + + | Component | Value | Ref Range | Performed | Pathologist | | | | | At | Signature | + + + + + + | Product | RBC Leukocytes Reduced | | [facility] | | | Code | | | [facility] | | | | | | [facility] | | | | | | [facility] - | | | | | | BLOOD BANK | | + + + + + + | UNIT # | [id number] | | [facility] | | | [facility] | | [facility] | | | | | | [facility] - | | | | | | BLOOD BANK | | + + + + + + | UNIT ABO | O | | [facility] | | | | | | [facility] | | | | | | [facility] | | | | | | [facility] - | | | | | | BLOOD BANK | | + + + + + + | UNIT RH | POS | | [facility] | | | | | | [facility] | | | | | [facility] | | | | | | [facility] - | | | | | | BLOOD BANK | | + + + + + + | CROSSMATCH | Compatible | | [facility] | | | INTERP | | | [facility] | | | | | | [facility] | | | | | | [facility] - | | | | | | BLOOD BANK | | + + + + + + | Unit Status | Returned | | [facility] | | | | | | [facility] | | | | | [facility] | | | | | | [facility] - | | | | | | BLOOD BANK | | + + + + + + + + | Specimen | + + | | + + + + + + + | Performing | Address | City/State/Zipcode | Phone Number | | Organization | | | | + + + + + | [facility] | [address] | [place], [place] | | | [facility] | | [address] | | | - BLOOD BANK | | | | + + + + + XR Lumbar Spine 2 or 3 Vw (12/03/2014 7:20 AM PST) + + | Specimen | + + | | + + + + + | Narrative | Performed At | + + + | LUMBAR SPINE: 12/03/2014 7:20 AM CLINICAL HISTORY: post op | [facility] | | COMPARISON: Lumbar CT 07/08/2014 FINDINGS: AP and lateral views | LAB | | lumbar spine. 5 lumbar segments. Interval placement of posterior | | | pedicle screw and suzanne and interbody fusion from L2 to L5. Persistent | | | mild retrolisthesis of L2 on L3 with otherwise normal alignment. | | | Acute subsidence of the superior endplate of L4, adjacent to the | | | interbody spacer. Vertebral body heights are otherwise normally | | | maintained. Posterior facet degenerative changes noted lumbar spine. | | | No adjacent soft tissue abnormalities, other than surgical drain. | | | IMPRESSION - Interval placement of posterior pedicle screw and suzanne | | | and interbody fusion from L2 to L5. Acute subsidence of the interbody | | | spacer at L3-L4, into the superior endplate of L4. Fixation | | | components otherwise show normal configuration and position. | | | Dictated and Signed by: Abhishek Lou MD Electronically signed: | | | 12/03/2014 11:27 AM | | + + + + + | Procedure Note | + + | Alexis, Rad Results In - 12/03/2014 11:30 AM PST LUMBAR SPINE: 12/03/2014 7:20 AM | | | | CLINICAL HISTORY: post op | | | | COMPARISON: Lumbar CT 07/08/2014 | | | | FINDINGS: AP and lateral views lumbar spine. 5 lumbar segments. Interval | | placement of posterior pedicle screw and suzanne and interbody fusion from L2 to L5. | | Persistent mild retrolisthesis of L2 on L3 with otherwise normal alignment. | | Acute subsidence of the superior endplate of L4, adjacent to the interbody | | spacer. Vertebral body heights are otherwise normally maintained. Posterior | | facet degenerative changes noted lumbar spine. No adjacent soft tissue | | abnormalities, other than surgical drain. | | | | IMPRESSION - Interval placement of posterior pedicle screw and suzanne and interbody | | fusion from L2 to L5. Acute subsidence of the interbody spacer at L3-L4, into | | the superior endplate of L4. Fixation components otherwise show normal | | configuration and position. | | | | Dictated and Signed by: Abhishek Lou MD | | Electronically signed: 12/03/2014 11:27 AM | + + + +---------+ + + | Performing | Address | City/State/Zipcode | Phone Number | | Organization | | | | + +---------+ + + | [facility] | | | [phone] | + +---------+ + + | [facility] | | | [phone] | + +---------+ + + CBC no Differential (12/03/2014 6:21 AM PST) + + + + + + | Component | Value | Ref Range | Performed | Pathologist | | | | | At | Signature | + + + + + + | White Blood | 11.6 (H) | 4.0 - 11.0 K/uL | [facility] | | | Cells | | | [facility] | | | | | | [facility] | | | | | | CENTER - | | | | | | LABORATORY | | + + + + + + | Red Blood | 3.90 (L) | 4.30 - 5.70 | [facility] | | | Cells | | M/uL | [facility] | | | | | | MEDICAL | | | | | | CENTER - | | | | | | LABORATORY | | + + + + + + | Hemoglobin | 12.8 (L) | 13.5 - 18.0 | [facility] | | | | | g/dL | [facility] | | | | | | MEDICAL | | | | | | CENTER - | | | | | | LABORATORY | | + + + + + + | Hematocrit | 37.9 (L) | 40.0 - 51.0 % | [facility] | | | | | | [facility] | | | | | | MEDICAL | | | | | | CENTER - | | | | | | LABORATORY | | + + + + + + | MCV | 97.4 | 83.0 - 101.0 fL | [facility] | | | | | | [facility] | | | | | | MEDICAL | | | | | | CENTER - | | | | | | LABORATORY | | + + + + + + | MCH | 32.8 | 28.0 - 35.0 pg | [facility] | | | | | | [facility] | | | | | | MEDICAL | | | | | | CENTER - | | | | | | LABORATORY | | + + + + + + | MCHC | 33.7 | 32.0 - 36.0 | [facility] | | | | | g/dL | [facility] | | | | | | MEDICAL | | | | | | CENTER - | | | | | | LABORATORY | | + + + + + + | RDW-CV | 16.1 (H) | <15.0 % | [facility] | | | | | | [facility] | | | | | | MEDICAL | | | | | | CENTER - | | | | | | LABORATORY | | + + + + + + | Platelet | 269 | 140 - 440 K/uL | [facility] | | | Count | | | [facility] | | | | | | MEDICAL | | | | | | CENTER - | | | | | | LABORATORY | | + + + + + + | MPV | 7.7 | fL | [facility] | | | | | | [facility] | | | | | | MEDICAL | | | | | | CENTER - | | | | | | LABORATORY | | + + + + + + + + | Specimen | + + | Blood | + + + + + + + | Performing | Address | City/State/Zipcode | Phone Number | | Organization | | | | + + + + + | [facility] | [address] | [place], [place] | [phone] | | [facility] | | [address] | | | - LABORATORY | | | | + + + + + | [facility] | [address] | [place], [place] | | | [facility] | | [id number] | | | - LABORATORY | | | | + + + + + Type and Screen (12/02/2014 3:25 PM PST) + + + + + + | Component | Value | Ref Range | Performed | Pathologist | | | | | At | Signature | + + + + + + | ABO | O | | [facility] | | | | | | [facility] | | | | | | MEDICAL | | | | | | CENTER - | | | | | | BLOOD BANK | | + + + + + + | Rh Type | Positive | | [facility] | | | | | | [facility] | | | | | | MEDICAL | | | | | | CENTER - | | | | | | BLOOD BANK | | + + + + + + | Antibody | Negative | | [facility] | | | Screen | | | [facility] | | | | | | MEDICAL | | | | | | CENTER - | | | | | | BLOOD BANK | | + + + + + + + + | Specimen | + + | Blood specimen | | (specimen) | + + + + + + + | Performing | Address | City/State/Zipcode | Phone Number | | Organization | | | | + + + + + | [facility] | [address] | [place] | | | [facility] | | [address] | | | - BLOOD BANK | | | | + + + + + PTT (12/02/2014 12:05 PM PST) + +-------+ + + + | Component | Value | Ref Range | Performed | Pathologist | | | | | At | Signature | + +-------+ + + + | aPTT | 28 | 22 - 36 seconds | [facility] | | | | | | [facility] | | | | | | MEDICAL | | | | | | CENTER - | | | | | | LABORATORY | | + +-------+ + + + + + | Specimen | + + | Blood | + + + + + + + | Performing | Address | City/State/Zipcode | Phone Number | | Organization | | | | + + + + + | [facility] | [address] | [place] | [phone] | | [facility] | | [address] | | | - LABORATORY | | | | + + + + + | [facility] | [address] | [place] | | | [facility] | | [address], [facility] | | | - LABORATORY | | | | + + + + + Protime INR (12/02/2014 12:05 PM PST) + + + + + + | Component | Value | Ref Range | Performed | Pathologist | | | | | At | Signature | + + + + + + | Prothrombin | 13.6 | 11.3 - 13.9 | [facility] | | | Time | | seconds | [facility] | | | | | | MEDICAL | | | | | | CENTER - | | | | | | LABORATORY | | + + + + + + | INR | 1.04Comment: Usual Oral | 0.90 - 1.10 | [facility] | | | | Anticoagulation Range: | | [facility] | | | | 2.0 - 3.0High | | MEDICAL | | | | Level Oral | | CENTER - | | | | Anticoagulation Range: | | LABORATORY | | | | 2.5 - 3.5 | | | | + + + + + + + + | Specimen | + + | Blood | + + + + + + + | Performing | Address | City/State/Zipcode | Phone Number | | Organization | | | | + + + + + | [facility] | [address] | [place] | [phone] | | [facility] | | [address] | | | - LABORATORY | | | | + + + + + | [facility] | [address] | [place] | | | [facility] | | [address], [facility] | | | - LABORATORY | | | | + + + + + documented in this encounter Visit Diagnoses + + | Diagnosis | + + | Cancer (HCC) - Primary Other malignant neoplasm without specification of site | + + | Degenerative disc disease, lumbar Degeneration of lumbar or lumbosacral | | intervertebral disc | + + | Depression Depressive disorder, not elsewhere classified | + + | Essential hypertension, benign | + + | Former smoker Personal history of tobacco use, presenting hazards to health | + + | H/O colon cancer, stage I Personal history of malignant neoplasm of large intestine | + + | Lumbar stenosis with neurogenic claudication Spinal stenosis, lumbar region, with | | neurogenic claudication | + + | Rheumatoid arthritis(714.0) Rheumatoid arthritis | + + documented in this encounter Administered Medications + +--------+ +--------+------+------+ | Medication Order | MAR | Action | Dose | Rate | Site | | | Action | Date | | | | + +--------+ +--------+------+------+ | aluminum & magnesium | Given | 12/04/19 | 30 mLs | | | | hydroxide-simethicone (MAALOX | | 15 10:22 | | | | | REGULAR STRENGTH) 200-200-20 mg/5 | | AM PST | | | | | mL suspension 30 mL 30 mL, | | | | | | | Oral, EVERY 6 HOURS PRN, | | | | | | | Indigestion, Starting Tue12/02/14 | | | | | | | at 2012, Main [facility], | | | | | | | Post-op/Phase II | | | | | | + +--------+ +--------+------+------+ +---+---+ | | | +---+---+ + +-------+ +-------+---+---+ | atorvaSTATin (LIPITOR) tablet | Given | 12/04/19 | 10 mg | | | | 10 mg 10 mg, Oral, NIGHTLY, | | 15 8:04 | | | | | First dose on Tue12/02/14 at 2100, | | PM PST | | | | | Post-op/Phase II | | | | | | + +-------+ +-------+---+---+ +-------+ +-------+---+---+ | Given | 12/03/19 | 10 mg | | | | | 15 8:04 | | | | | | PM PST | | | | +-------+ +-------+---+---+ | Given | 12/02/19 | 10 mg | | | | | 15 8:52 | | | | | | PM PST | | | | +-------+ +-------+---+---+ +---+---+ | | | +---+---+ + +-------+ +-------+---+---+ | bisacodyl (DULCOLAX) | Given | 12/05/19 | 10 mg | | | | suppository 10 mg 10 mg, Rectal, | | 15 10:46 | | | | | DAILY PRN, Constipation, | | AM PST | | | | | Starting 12/02/14 at 2011, If | | | | | | | all other bowel medications | | | | | | | ineffective x 24 hours or not | | | | | | | ordered, Post-op/Phase II | | | | | | + +-------+ +-------+---+---+ +---+---+ | | | +---+---+ + +---------+ +-----+-------+---+ | ceFAZolin (ANCEF, KEFZOL) 2 g | New Bag | 12/03/19 | 2 g | 100 | | | in sodium chloride 0.9% 50 mL | | 15 6:38 | | mL/hr | | | IVPB 2 g, Intravenous, | | AM PST | | | | | Administer over 30 Minutes, EVERY | | | | | | | 8 HOURS INTERVAL, First dose on | | | | | | | 12/02/14 at 2200, For 2 doses, | | | | | | | Start 8 hours after previous | | | | | | | dose. Last dose to be given | | | | | | | within 24 hours of surgery end | | | | | | | time., Post-op/Phase II | | | | | | + +---------+ +-----+-------+---+ +---------+ +-----+-------+---+ | New Bag | 12/02/19 | 2 g | 100 | | | | 15 10:25 | | mL/hr | | | | PM PST | | | | +---------+ +-----+-------+---+ +---+---+ | | | +---+---+ + +-------+ +-------+---+---+ | cyclobenzaprine (FLEXERIL) | Given | 12/05/19 | 10 mg | | | | tablet 10 mg 10 mg, Oral, EVERY | | 15 11:09 | | | | | 8 HOURS PRN, Muscle spasms, | | AM PST | | | | | Starting 12/02/14 at 2011, | | | | | | | Post-op/Phase II | | | | | | + +-------+ +-------+---+---+ +-------+ +-------+---+---+ | Given | 12/05/19 | 10 mg | | | | | 15 3:54 | | | | | | AM PST | | | | +-------+ +-------+---+---+ | Given | 12/04/19 | 10 mg | | | | | 15 12:13 | | | | | | PM PST | | | | +-------+ +-------+---+---+ +---+---+ | | | +---+---+ + +-------+ +--------+---+---+ | docusate sodium (COLACE) | Given | 12/04/19 | 100 mg | | | | capsule 100 mg 100 mg, Oral, | | 15 8:18 | | | | | TIMES DAILY PRN, Constipation, | | AM PST | | | | | Starting 12/02/14 at 2011, | | | | | | | First line agent for | | | | | | | constipation, Post-op/Phase II | | | | | | + +-------+ +--------+---+---+ +-------+ +--------+---+---+ | Given | 12/03/19 | 100 mg | | | | | 15 8:04 | | | | | | PM PST | | | | +-------+ +--------+---+---+ +---+---+ | | | +---+---+ + +-------+ +--------+---+---+ | fentaNYL injection 25-50 mcg | Given | 12/02/19 | 25 mcg | | | | 25-50 mcg, Intravenous, EVERY 5 | | 15 7:08 | | | | | MIN PRN, Pain, Starting Mon | | PM PST | | | | | 12/02/14 at 1725, Maximum total | | | | | | | dose 100 mcg. PACU IV Narcotic | | | | | | | Priority: Only use fentanyl for | | | | | | | immediate post-op pain (one dose) | | | | | | | or breakthrough pain when any | | | | | | | other IV narcotics ordered have | | | | | | | been ineffective (if ordered). | | | | | | | If both morphine and | | | | | | | hydromorphone are ordered, use | | | | | | | morphine first, and use | | | | | | | hydromporphone if morphine | | | | | | | ineffective., Recovery/Phase I | | | | | | + +-------+ +--------+---+---+ +-------+ +--------+---+---+ | Given | 12/02/19 | 25 mcg | | | | | 15 6:31 | | | | | | PM PST | | | | +-------+ +--------+---+---+ +---+---+ | | | +---+---+ + +-------+ +--------+---+---+ | gabapentin (NEURONTIN) capsule | Given | 12/05/19 | 800 mg | | | | 800 mg 800 mg, Oral, 3 TIMES | | 15 9:27 | | | | | DAILY, First dose on 12/02/14 | | AM PST | | | | | at 2100, Post-op/Phase II | | | | | | + +-------+ +--------+---+---+ +-------+ +--------+---+---+ | Given | 12/04/19 | 800 mg | | | | | 15 8:03 | | | | | | PM PST | | | | +-------+ +--------+---+---+ | Given | 12/04/19 | 800 mg | | | | | 15 2:02 | | | | | | PM PST | | | | +-------+ +--------+---+---+ +---+---+ | | | +---+---+ + +-------+ +---------+---+---+ | HYDROcodone-acetaminophen | Given | 12/05/19 | 2 | | | | (NORCO) 5-325 mg per tablet 1-2 | | 15 9:27 | tablets | | | | tablet 1-2 tablet, Oral, EVERY 4 | | AM PST | | | | | HOURS PRN, Pain, Starting Mon | | | | | | | 12/02/14 at 2011, If ineffective | | | | | | | use [place] 10/325 if ordered. If | | | | | | | not tolerated, use Percocet then | | | | | | | Oxycodone if ordered., | | | | | | | Post-op/Phase II | | | | | | + +-------+ +---------+---+---+ +-------+ +---------+---+---+ | Given | 12/05/19 | 2 | | | | | 15 3:54 | tablets | | | | | AM PST | | | | +-------+ +---------+---+---+ | Given | 12/05/19 | 2 | | | | | 15 12:02 | tablets | | | | | AM PST | | | | +-------+ +---------+---+---+ +---+---+ | | | +---+---+ + +-------+ +---------+---+---+ | HYDROcodone-acetaminophen | Given | 12/05/19 | 2 | | | | (NORCO) 5-325 mg per tablet 2 | | 15 11:10 | tablets | | | | tablet 2 tablet, Oral, ONCE, Sana | | AM PST | | | | | 12/05/14 at 1130, For 1 dose | | | | | | + +-------+ +---------+---+---+ +---+---+ | | | +---+---+ + +---------+ +---+-------+---+ | lactated ringers (LR) infusion | New Bag | 12/02/19 | | 100 | | | at 100 mL/hr, Intravenous, | | 15 8:51 | | mL/hr | | | CONTINUOUS, Starting 12/02/14 | | PM PST | | | | | at 1130, Start with large bore | | | | | | | (18-20) gauge., Pre-op | | | | | | + +---------+ +---+-------+---+ +---+---+ | | | +---+---+ + +---------+ +----+---+---+ | lactated ringers (LR) infusion | New Bag | 12/02/19 | mL | | | | at 10-100 mL/hr, Intravenous, | | 15 4:19 | | | | | CONTINUOUS, Starting 12/02/14 | | PM PST | | | | | at 1130, TKO., Pre-op | | | | | | + +---------+ +----+---+---+ +---------+ +----+---+---+ | New Bag | 12/02/19 | mL | | | | | 15 3:31 | | | | | | PM PST | | | | +---------+ +----+---+---+ | New Bag | 12/02/19 | mL | | | | | 15 2:40 | | | | | | PM PST | | | | +---------+ +----+---+---+ +---+---+ | | | +---+---+ + +-------+ +--------+---+---+ | levothyroxine (SYNTHROID, | Given | 12/05/19 | 75 mcg | | | | LEVOTHROID) tablet 75 mcg 75 | | 15 6:10 | | | | | mcg, Oral, DAILY BEFORE | | AM PST | | | | | BREAKFAST, First dose on Tue | | | | | | | 12/03/14 at 0730, Give before | | | | | | | breakfast., Post-op/Phase II | | | | | | + +-------+ +--------+---+---+ +-------+ +--------+---+---+ | Given | 12/04/19 | 75 mcg | | | | | 15 6:50 | | | | | | AM PST | | | | +-------+ +--------+---+---+ | Given | 12/03/19 | 75 mcg | | | | | 15 6:39 | | | | | | AM PST | | | | +-------+ +--------+---+---+ +---+---+ | | | +---+---+ + +-------+ +-------+---+---+ | lisinopril (PRINIVIL, ZESTRIL) | Given | 12/05/19 | 10 mg | | | | tablet 10 mg 10 mg, Oral, DAILY, | | 15 9:27 | | | | | First dose on Tue12/02/14 at | | AM PST | | | | | 2030, Post-op/Phase II | | | | | | + +-------+ +-------+---+---+ +-------+ +-------+---+---+ | Given | 12/04/19 | 10 mg | | | | | 15 8:18 | | | | | | AM PST | | | | +-------+ +-------+---+---+ | Given | 12/03/19 | 10 mg | | | | | 15 8:39 | | | | | | AM PST | | | | +-------+ +-------+---+---+ +---+---+ | | | +---+---+ + +-------+ +--------+---+---+ | lithium capsule 300 mg 300 mg, | Given | 12/05/19 | 300 mg | | | | Oral, 3 TIMES DAILY WITH MEALS, | | 15 9:27 | | | | | First dose on Tue12/02/14 at 2030, | | AM PST | | | | | Post-op/Phase II | | | | | | + +-------+ +--------+---+---+ +-------+ +--------+---+---+ | Given | 12/04/19 | 300 mg | | | | | 15 5:55 | | | | | | PM PST | | | | +-------+ +--------+---+---+ | Given | 12/04/19 | 300 mg | | | | | 15 12:15 | | | | | | PM PST | | | | +-------+ +--------+---+---+ +---+---+ | | | +---+---+ + +-------+ +-------+---+---+ | mirtazapine (REMERON) tablet 60 | Given | 12/04/19 | 60 mg | | | | mg 60 mg, Oral, NIGHTLY, First | | 15 8:03 | | | | | dose on Tue12/02/14 at 2100, | | PM PST | | | | | Post-op/Phase II | | | | | | + +-------+ +-------+---+---+ +-------+ +-------+---+---+ | Given | 12/03/19 | 60 mg | | | | | 15 8:04 | | | | | | PM PST | | | | +-------+ +-------+---+---+ | Given | 12/02/19 | 60 mg | | | | | 15 8:51 | | | | | | PM PST | | | | +-------+ +-------+---+---+ +---+---+ | | | +---+---+ + +-------+ +------+---+---+ | morphine injection 2-4 mg 2-4 | Given | 12/04/19 | 2 mg | | | | mg, Intravenous, EVERY 2 HOURS | | 15 8:03 | | | | | PRN, Pain, Starting Tue12/02/14 at | | PM PST | | | | | 2011, Slow IV push, not faster | | | | | | | than 2 mg/minute. If ineffective | | | | | | | or not tolerated, use | | | | | | | hydromorphone IV if ordered., | | | | | | | Post-op/Phase II | | | | | | + +-------+ +------+---+---+ +-------+ +------+---+---+ | Given | 12/04/19 | 2 mg | | | | | 15 1:49 | | | | | | AM PST | | | | +-------+ +------+---+---+ | Given | 12/03/19 | 2 mg | | | | | 15 5:28 | | | | | | PM PST | | | | +-------+ +------+---+---+ +---+---+ | | | +---+---+ + +-------+ +-------+---+---+ | pantoprazole (PROTONIX) DR | Given | 12/05/19 | 40 mg | | | | tablet 40 mg 40 mg, Oral, DAILY | | 15 6:10 | | | | | BEFORE BREAKFAST, First dose on | | AM PST | | | | | 12/03/14 at 0730, Do not cut or | | | | | | | crush., Post-op/Phase II | | | | | | + +-------+ +-------+---+---+ +-------+ +-------+---+---+ | Given | 12/04/19 | 40 mg | | | | | 15 6:50 | | | | | | AM PST | | | | +-------+ +-------+---+---+ | Given | 12/03/19 | 40 mg | | | | | 15 6:39 | | | | | | AM PST | | | | +-------+ +-------+---+---+ +---+---+ | | | +---+---+ + +-------+ +------+---+---+ | polyethylene glycol (MIRALAX) | Given | 12/03/19 | 17 g | | | | powder 17 g 17 g, Oral, DAILY | | 15 3:40 | | | | | PRN, Constipation, Starting Mon | | PM PST | | | | | 12/02/14 at 2011, If docusate and | | | | | | | senna ineffective or not ordered, | | | | | | | Post-op/Phase II | | | | | | + +-------+ +------+---+---+ +---+---+ | | | +---+---+ + +-------+ +--------+---+---+ | senna (SENOKOT) tablet 8.6 mg | Given | 12/04/19 | 8.6 mg | | | | 8.6 mg, Oral, 2 TIMES DAILY PRN, | | 15 8:18 | | | | | Constipation, Starting 12/02/14 | | AM PST | | | | | at 2011, If docusate ineffective | | | | | | | or not ordered, Post-op/Phase II | | | | | | + +-------+ +--------+---+---+ +-------+ +--------+---+---+ | Given | 12/03/19 | 8.6 mg | | | | | 15 3:40 | | | | | | PM PST | | | | +-------+ +--------+---+---+ +---+---+ | | | +---+---+ + +-------+ +--------+---+---+ | sertraline (ZOLOFT) tablet 100 | Given | 12/05/19 | 100 mg | | | | mg 100 mg, Oral, 2 TIMES DAILY, | | 15 9:27 | | | | | First dose (after last | | AM PST | | | | | modification) on Tue12/03/14 at | | | | | | | 0900, Post-op/Phase II | | | | | | + +-------+ +--------+---+---+ +-------+ +--------+---+---+ | Given | 12/04/19 | 100 mg | | | | | 15 8:04 | | | | | | PM PST | | | | +-------+ +--------+---+---+ | Given | 12/04/19 | 100 mg | | | | | 15 8:18 | | | | | | AM PST | | | | +-------+ +--------+---+---+ +---+---+ | | | +---+---+ + +-------+ +--------+---+---+ | tamsulosin (FLOMAX) capsule 0.4 | Given | 12/05/19 | 0.4 mg | | | | mg 0.4 mg, Oral, DAILY AFTER | | 15 9:27 | | | | | BREAKFAST, First dose on Tue | | AM PST | | | | | 12/04/14 at 0900, Do not open | | | | | | | capsule., | | | | | | + +-------+ +--------+---+---+ +-------+ +--------+---+---+ | Given | 12/04/19 | 0.4 mg | | | | | 15 8:18 | | | | | | AM PST | | | | +-------+ +--------+---+---+ +---+---+ | | | +---+---+ + +-------+ +-------+---+---+ | ziprasidone (GEODON) capsule 80 | Given | 12/05/19 | 80 mg | | | | mg 80 mg, Oral, 2 TIMES DAILY | | 15 9:26 | | | | | WITH BREAKFAST & DINNER, First | | AM PST | | | | | dose on Tue12/02/14 at 2030, May | | | | | | | cause prolongation of QT | | | | | | | interval. Take with food., | | | | | | | Post-op/Phase II | | | | | | + +-------+ +-------+---+---+ +-------+ +-------+---+---+ | Given | 12/04/19 | 80 mg | | | | | 15 5:55 | | | | | | PM PST | | | | +-------+ +-------+---+---+ | Given | 12/04/19 | 80 mg | | | | | 15 8:18 | | | | | | AM PST | | | | +-------+ +-------+---+---+ +---+---+ | | | +---+---+ documented in this encounter
--- OUTSIDE RECORDS SUMMARY | ~2020-07-14 | XMS | Encounter Summary ---
Demographics + + + | Address | [address] | | | [place] [address] | + + + | Home Phone | | + + + | Preferred Language | Unknown | + + + | Marital Status | | + + + | Zoroastrianism Affiliation | Unknown | + + + | Race | White | + + + | Ethnic Group | Not or | + + + Author + + + | Author | [facility] | | | and [place] | + + + | Organization | [facility] | | | and [...] [place], [place] | | | | | [address] | | + + + + + | Mao Rea | ECON | Unknown | | + + + + + | Meredith Rea | ECON | Unknown | | + + + + + Care Team Providers + +------+ + | Care Soft Work Wrapper Examiner Name | Role | Phone | + +------+ + | Brandon Juarez MD | PCP | | + +------+ + Reason for Visit + +--------+ + | Reason | Onset | Comments | | | Date | | + +--------+ + | Medication Question | 03/07/ | | | | 2016 | | + +--------+ + Encounter Details +--------+ + + + + | Date | Type | Department | Care Team | Description | +--------+ + + + + | 03/07/ | Telephone | [facility] | Koby George MD | Medication Question | | 2016 | | NEUROSURGERY [address] | [address] | | | | | [address] [facility] [address] | [place] [address] | | | | | [place] | [phone] | | | | | [address] | | | | | | [phone] | | | +--------+ + + + [...] + + documented as of this encounter Miscellaneous Notes Telephone Encounter - Jaquelin Mars RN - 03/07/2017 4:41 PM PDTRx destroyed by Jared FERNANDES after confirming patient has enough to last until office visit. DOM will discuss pain medication and provide Rx at appointment tomorrow, 03/08/2017 elephone Encounter - Jaquelin Mars RN - 03/07/20 17 1:20 PM PDTAdvised patient and spouse per note below. Both expressed disappointment and frustration that patient has not had adequate pain management since discharge from hospital . Spouse stated before surgery they were told that patient would be discharged on 20 mg oxy codone and a muscle relaxant. Concerns related to oversedation were dismissed with belief t hat the IV pain medication and anesthesia were the cause of this and when patient took 2 tab lets oxycodone-acetaminophen 10-325 mg over the weekend, that was the first time his pain em s been down to a tolerable level since discharge. Patient will arrive at [facility] by 1030 tomorrow for 2 view Lumbar XR (XR ordered) Patient will check in immediately following XR for staple removal and for rooming for PA ap pointment. elephone E etienneuntvicky - Ender Mora PA-C - 03/07/2017 12:03 PM PDTAs we get further from his acsiano rgery date he should be using less medication, not more. His pain was doing relatively well in the hospital. He should have an earlier appointment with He or myself to evaluate why his pain is requiring increasing doses of medication. He should get xrays prior to his appo intment. Rx approved at 5-15 mg every 4 hours elephone Encounter - Jaquelin Mars RN - 03/07/2017 10:50 AM PDTMedication Refill Request Procedure: L5-S1 Transforaminal Lumbar Interbody Fusion, Hardware Revision @ L2-3, L3-4, L 4-5 Date of Surgery: 02/23/2017 Date of Next Office Visit: 03/08/2017 staple removal; 03/24/2017 4 week PO Medication requested: Oxycodone 10 mg tablets Do you have a pain contract with any providers: No- on hold for 90 day post operative araseli od Are you receiving pain medication prescriptions from any other providers: No Current intake: Per 03/01/17 encounter, taking 15 mg every 4 hours but ran out over weekend and pharmacy would not refill early based on Rx max daily dose; Patient used oxycodone-aceta minophen 10-325 he had left over from before surgery (pain clinic), 2 tablets every 4 hours. The 15 mg doses were providing minimal pain relief from 7-8/10 to 6/10 for 3 hours, but ne jayden bringing pain to a tolerable level. Taking oxycodone-acetaminophen 10-325, 2 tablets ev laurel 4 hours was effective to relieve pain to about 4/10 for 3 hours. Spouse acknowledged co ncerns r/t acetaminophen toxicity and is recording medication and making sure patient does n ot get more than 4000 mg from all sources in 24 hours. Patient/ spouse requesting increase to 20 mg oxycodone every 4 hours and using OTC acetaminophen as needed, and as directed (familia ry 6 hours) to provide supplemental pain coverage between doses. Date of last refill: 03/07/2017 # of tabs left/or when will patient run out of this medication: 120 tablets- requesting for new instructions (03/01 or as requested above) to allow refills sooner than last prescription allows. Where is pain located? Type of pain (constant, intermittent, sharp, dull)? : Persistent, i ntolerable surgical pain Send in the mail or call in to preferred pharmacy? Requesting to picker and sorter load and unload new Rx at staple removal appointment 03/08/2017 Please advise if ok to take 20 mg oxycodone every 4 hours Please approve/ deny new Rx (not attached; needs to be updated) elephone Encounter - Andre Mars - 03/07/2017 10:24 AM PDTPatients spouse called in to request a refill on De ans oxyCODONE 10 MG TABS [[id number]] Please call back to discuss documented in this encounter Plan of Treatment Not on filedocumented as of this encounter Results XR Lumbar Spine 2 or 3 Vw (03/08/2017 10:42 AM PDT) + + | Specimen | + + | | + + + + + | Narrative | Performed At | + + + | XR LUMBAR SPINE 2 OR 3 VW 03/08/2017 10:42 AM HISTORY: post | [facility] | | operative follow up. COMPARISON: Multiple priors. FINDINGS: | [facility] | | Again visualized are hardware for posterior fusion from L2 through the [facility] | | SI joints with spacer hardware at these levels. There is stable | - IMAGING | | moderate subsidence of the spacer hardware along the superior | | | endplate of L4. The hardware are intact otherwise. Mild | | | retrolistheses are visualized of L2 over L3 and L3 over L4. There is | | | minimal anterolisthesis of L4 over L5. Bone mineralization is normal. | | | Vertebral body height are preserved with no evidence for compression | | | fractures. Disc height are maintained. Multilevel facet sclerosis and | | | hypertrophy are present. Visualized ribs and pelvic osseous | | | structures show no acute findings. A clip is anterior to L5. | | | Posterior soft tissue anahy are visualized. IMPRESSION - Stable | | | posterior fusion from L2 through the SI joints with stable moderate | | | subsidence of the spacer hardware along the superior endplate of L4. | | | Dictated and Signed by: Sen Polanco MD Electronically signed: | | | 03/08/2017 11:55 AM | | + + + + + | Procedure Note | + + | Alexis, Rad Results In - 03/08/2017 11:58 AM PDT XR LUMBAR SPINE 2 OR 3 VW 03/08/2017 | | 10:42 AMHISTORY: post operative follow up.COMPARISON: Multiple priors.FINDINGS:Again | | visualized are hardware for posterior fusion from L2 through the SI jointswith spacer | | hardware at these levels. There is stable moderate subsidence of thespacer hardware | | along the superior endplate of L4. The hardware are intactotherwise. Mild retrolistheses | | are visualized of L2 over L3 and L3 over L4.There is minimal anterolisthesis of L4 over | | L5. Bone mineralization is normal.Vertebral body height are preserved with no evidence | | for compression fractures.Disc height are maintained. Multilevel facet sclerosis and | | hypertrophy arepresent. Visualized ribs and pelvic osseous structures show no acute | | findings. Aclip is anterior to L5. Posterior soft tissue anahy are | | visualized.IMPRESSION -Stable posterior fusion from L2 through the SI joints with stable | | moderatesubsidence of the spacer hardware along the superior endplate of L4.Dictated | | and Signed by: Sen Polanco MD Electronically signed: 03/08/2017 11:55 AM | |Disc height are maintained. Multilevel facet sclerosis and hypertrophy are | |present. Visualized ribs and pelvic osseous structures show no acute findings. A | |clip is anterior to L5. Posterior soft tissue anahy are visualized. | | | |IMPRESSION - | |Stable posterior fusion from L2 through the SI joints with stable moderate | |subsidence of the spacer hardware along the superior endplate of L4. | | | |Dictated and Signed by: Sen Polanco MD | | Electronically signed: 03/08/2017 11:55 AM | + + + + + + + | Performing | Address | City/State/Zipcode | Phone Number | | Organization | | | | + + + + + | [facility] | [address] 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
--- OUTSIDE RECORDS SUMMARY | ~2020-07-14 | XMS | Encounter Summary ---
Demographics + + + | Address | [address] | | | [place] [address] | + + + | Home Phone | | + + + | Preferred Language | Unknown | + + + | Marital Status | | + + + | Quaker Affiliation | Unknown | + + + | Race | White | + + + | Ethnic Group | Not or | + + + Author + + + | Author | [facility] | | | and [place] | + + + | Organization | [facility] | | | and [place] | + + + | Address | Unknown | + + + | Phone | Unavailable | + + + Support + + + + + | Name | Relationship | Address | Phone | + + + + + | Henny Rea | ECON | [address] | | | | | [place] | | | | | [address] | | + + + + + | Mao Rea | ECON | Unknown | | + + + + + | Meredith Rea | ECON | Unknown | | + + + + + Care Team Providers + +------+ + | Care Director Of Business Services Name | Role | Phone | + +------+ + | Sherie Vela PA-C | PCP | | + +------+ + Reason for Visit + + + | Reason | Comments | + + + | Therapy Daily | | | Treatment | | + + + Evaluate & Treat (Routine) + +--------+ + + + + | Status | Reason | Specialty | Diagnoses / | Referred By | Referred To | | | | | Procedures | Contact | Contact | + +--------+ + + + + | Authorized | | Rehabilitatio | Diagnoses | Sushma, | [facility] | | | | n | Parkinson's | [facility] | [place] | | | | | disease | MD Milo | Therapy [address] | | | | | ([facility]) [address] | [address] | | | | | Dmitry | [address] | [place], | | | | | LINE ASSEMBLY UTILITY WORKER | [place], | [place] [address] | | | | | | [place] [address] | Phone: | | | | | | Phone: | [phone] | | | | | | [phone] | Fax: | | | | | | Fax: | [phone] | | | | | | [phone] | | + +--------+ + + + + Encounter Details +--------+---------+ + + + | Date | Type | Department | Care Team | Description | +--------+---------+ + + + | 06/19/ | Office | [facility] | Winnie Merino, | Cognitive | | 2020 | Visit | [facility] | Speech Pathologist | communication | | | | [address] | | disorder | | | | [place] | | | | | | [address] | | | | | | [phone] | | | +--------+---------+ + + + Social History + + + +--------+ + | Tobacco Use | Types | Packs/Day | Years | Date | | | | | Used | | + + + +--------+ + | Former Smoker | Cigarettes | 2 | 23 | 10/31/1957 - | | | | | | 10/31/1980 | + + + +--------+ + [...] documented as of this encounter Progress Notes Winnie Merion, Speech Pathologist - 06/19/2020 3:45 PM PDTFormatting of this note mig t be different from the original. [facility] [address] [place] [facility] [address] Speech Therapy Daily Treatment Note Date: 06/19/2020 Patient Information Patient Name: Uziel Rea Date of : 1945 Age: 75 y.o. 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 Date of Onset: 04/18/2020 Referring Provider: Murphy Ordaz MD Rehab Precautions Office Visit from 04/18/2020 in [facility] Rehab Precautions Precautions Comments Depression/mental health Hx Rehab Learning Style [facility] Learning Style Patient's [employer] Learning Style reading [written information] Today's Treatment Start Time: 1545 Stop time: 1631 Duration: 46 minutes Timed Treatment Codes: 15 minutes # of Speech Visits to Date: 9 Pain Assessment: Pain Rating Pre Assessment: 6 Subjective: Patient and pt's , Maribell, present for session. Brought memory notebook, an d Ipad. MRI scheduled for 06/30, with apt to discuss results jul 04. Patient and pt's agree that cognitively patient had made significant improvements and communication between t he two of them has much improved. Objective: With the use of repetition and varied delays, patient was able to recall the seq uence to use iphone to add new contact and to place a phone call with intermittent verbal cu es needed. Assessment: Continued training needed to independently send e-mails and make phone calls fr om phone. Improved overall communication and cognitive function with new learning related to improved communication. Goals: Additional LINE ASSEMBLY UTILITY WORKER Goals OP LINE ASSEMBLY UTILITY WORKER Goals: Goal 5 Goal 4: Patient will independently recall steps to send email to improve communication with written notes as needed. Goal 4 Status: Met Goal 5: Patient will demonstrate functional use of phone to make phone calls and send e-reg ls independently in 8 of 10 given opportunities. Goal 5 Status: New, in progress Plan: train use of IPhone with spaced retrieval to improve communication. Electronically signed by: Winnie Merino Speech Pathologist, 06/19/2020 5:01 PM PDT Patient Name: Uziel Rea/: 1945/ doc umented in this encounter Plan of Treatment Not on filedocumented as of this encounter Visit Diagnoses + + | Diagnosis | + + | Cognitive communication disorder | + + documented in this encounter"
--- OUTSIDE RECORDS SUMMARY | ~2020-07-14 | XMS | Encounter Summary ---
Demographics + + + | Address | [address] | | | [place] [address] | + + + | Home Phone | | + + + | Preferred Language | Unknown | + + + | Marital Status | | + + + | Scientology Affiliation | Unknown | + + + | Race | White | + + + | Ethnic Group | Not or | + + + Author + + + | Author | [facility] | | | and [place] | + + + | Organization | [facility] | | | [...] [place], [place] | | | | | [address] | | + + + + + | Mao Rea | ECON | Unknown | | + + + + + | Meredith Rea | ECON | Unknown | | + + + + + Care Team Providers + +------+ + | Care City Distribution Clerk Name | Role | Phone | + +------+ + | Brandon Juarez MD | PCP | | + +------+ + Reason for Visit + +--------+ + | Reason | Onset | Comments | | | Date | | + +--------+ + | Surgery Appointment | 12/02/ | | | | 2016 | | + +--------+ + Encounter Details +--------+ + + + + | Date | Type | Department | Care Team | Description | +--------+ + + + + | 12/02/ | Telephone | [facility] | Koby George MD | Surgery Appointment | | 2016 | | NEUROSURGERY [address] | [address] | | | | | [address] | [place] [address] | | | | | [place] | [phone] | | | | | [address] | | | | | | [phone] | | | +--------+ + + + [...] this encounter Miscellaneous Notes Telephone Encounter - Emily Padilla - 12/02/2016 11:36 AM PSTDean is advised that we w ill start the authorization for a L5-S1 TLIF as noted in DOM Snaderson's last plan. We will call him once this procedure has been scheduled to walk him through the scheduling process. He verbalized understanding. elephone Encounter - Andre Mars - 12/02/2016 8:31 AM PSTPatient called in stating that Mg told them to call in when he feels that he is ready to proceed with surgery. He is ready to proceed and would like to submit to his insurance for auth. Please call patient back to discuss documented kimi francisco this encounter Plan of Treatment Not on filedocumented as of this encounter Visit Diagnoses Not on filedocumented in this encounter"
--- OUTSIDE RECORDS SUMMARY | ~2020-07-14 | XMS | Encounter Summary ---
Demographics + + + | Address | [address] | | | [place] [address] | + + + | Home Phone | | + + + | Preferred Language | Unknown | + + + | Marital Status | | + + + | Orthodoxy Affiliation | Unknown | + + + | Race | White | + + + | Ethnic Group | Not or | + + + Author + + + | Author | [facility] | | | and [place] | + + + | Organization | [facility] | | | [...] [place] | | | | | [address] | | + + + + + | Mao Rea | ECON | Unknown | | + + + + + | Meredith Rea | ECON | Unknown | | + + + + + Care Team Providers + +------+ + | Care Skilled Nursing Professional Name | Role | Phone | + +------+ + | Sherie Vela PA-C | PCP | | + +------+ + Reason for Visit Service/Procedure (Routine) +--------+--------+ + + + + | Status | Reason | Specialty | Diagnoses / | Referred By | Referred To | | | | | Procedures | Contact | Contact | +--------+--------+ + + + + | Closed | | Radiology | Diagnoses | | [facility] | | | | | Lumbar | Tino, | [address] | | | | | radiculopath | Luis Carlos Lenrer MD | [place], | | | | | y | [address] | [place] | | | | | Procedures | [address] [place] | [address] | | | | | PA INJECT | [facility] [place] | Phone: | | | | | ANES/STEROID | [address] | [phone] | | | | | FORAMEN | Phone: | Fax: | | | | | LUMBAR/SACRA | [phone] | [phone] | | | | | L W IMG | Fax: | | | | | | GUIDE ,1 | [phone] | | | | | | LEVEL PA | | | | | | | TRIAMCINOLON | | | | | | | E ACET INJ | | | | | | | NOS, 10 MG | | | | | | | Appt 2/6 | | | | | | | Left L2-L3 | | | | | | | TFESI | | | +--------+--------+ + + + + Encounter Details +--------+ + + + + | Date | Type | Department | Care Team | Description | +--------+ + + + + | 12/06/ | Hospital | [facility] | Wilfredo Hackett, | Lumbar radiculopathy | | 2019 | Encounter | MED CTR XRAY [address] | PA-C [address] | | | | | [place] | [address] [place] | | | | | [place] [address] | [place] [address] | | | | | [phone] | [phone] | | | | | | | | | | | | Purchasing ManagerSolomon | | | | | | [place] | | +--------+ + + + + [...] +---------+ + + | Blood Pressure | 167/96 | 12/06/2018 3:08 PM | | | | | PST | | + +---------+ + + | Pulse | 68 | 12/06/2018 2:55 PM | | | | | PST | | + +---------+ + + | [...] + + documented as of this encounter Medications at Time of Discharge + [...] + +---------+ + + | Calcium | Take 2 tablets by | | 0 | | | | Carb-Cholecalciferol | mouth Daily. | | | | | | (CALCIUM + D3) | | | | | | | 600-800 MG-UNIT TABS | | | | | | + + + +---------+ + + | Cholecalciferol | Take 2,000 Units by | | 0 | | | | (VITAMIN D-3) 2000 | mouth Daily. | | | | | | units CAPS | | | | | | + + + +---------+ + + | cyanocobalamin | Take 1,000 mcg by | | 0 | | | | (VITAMIN B-12) 1000 | mouth Daily. | | | | | | MCG tablet | | | | | | + + + +---------+ + + | fluticasone | Inhale 2 puffs into | | 0 | | | | (FLOVENT HFA) 110 | the lungs 2 times | | | | | | mcg/puff inhaler | daily. | | | | | + + + +---------+ + + | gabapentin | Take 400 mg by mouth | | 0 | | | | (NEURONTIN) 400 mg | 2 times daily. | | | | | | capsule | | | | | | + + + +---------+ + + | | Take 1 tablet by | | 0 | | | | glucosamine-chondroi | mouth Daily. | | | | | | tin | | | | | | | (GLUCOSAMINE-CHONDRO | | | | | | | ITIN DS) 500-400 MG | | | | | | | tablet | | | | | | + + + +---------+ + + | l-methylfolate 7.5 | Take 7.5 mg by mouth | | 0 | | | | mg tablet | Daily. | | | | | + + + +---------+ + + | leflunomide | Take 10 mg by mouth | | 0 | | | | (ARAVA) 10 mg tablet | Daily. | | | | | + + + +---------+ + + | levalbuterol | 2 puffs EVERY 4 TO 6 | | 0 | // | | | (XOPENEX HFA) 45 | HOURS NEEDED for | | | 18 | | | mcg/puff inhaler | Shortness of | | | | | | | Breath. | | | | | + + + +---------+ + + | levothyroxine | Take 88 mcg by mouth | | 0 | | | | (SYNTHROID) 88 mcg | every morning | | | | | | tablet | (before breakfast). | | | | | + + + +---------+ + + | lithium 300 mg | Take 300 mg by mouth | | 0 | 04// | | | capsule | 3 times daily. | | | 17 | | + + + +---------+ + + | Melatonin 10 MG | Take 20 mg by mouth | | 0 | | | | TABS | nightly. | | | | | + + + +---------+ + + | methotrexate (PF) | Inject 1 mg into the | | 0 | | | | 25 mg/mL injection | muscle Once a week. | | | | | + + + +---------+ + + | Misc Natural | Take 2 capsules by | | 0 | | | | Products (TURMERIC | mouth Daily. | | | | | | CURCUMIN) CAPS | | | | | | + + + +---------+ + + | Multiple | | | 0 | 06/15/20 | | | Vitamins-Minerals (A | | | | 11 | | | THRU Nancy MARTIN) | | | | | | | TABS | | | | | | + + + +---------+ + + | simvastatin | Take 40 mg by mouth | | 0 | 02/18/20 | | | (ZOCOR) 40 mg tablet | Daily. | | | 17 | | + + + +---------+ + + | VRAYLAR 4.5 MG | Take 1.5 mg by mouth | | 0 | 10/06/20 | | | capsule | . | | | 18 | | + + + +---------+ + + | DULoxetine | | | 0 | 10/02/20 | | | (CYMBALTA) [address] | | | | 18 | 9 | | capsule | | | | | | + + + +---------+ + + | mycophenolate | Take 1,000 mg by | | 0 | | | | (CELLCEPT) 500 MG | mouth 2 times daily. | | | | 9 | | tablet | | | | | | + + + +---------+ + + | [place]-3 Fatty | Take 2 capsules by | | 0 | | | | Acids (FISH OIL) | mouth Daily. | | | | 9 | | 1200 MG CAPS | | | | | | + + + +---------+ + + | omeprazole | Take 20 mg by mouth | | 0 | 02/08/20 | | | (PRILOSEC) 20 mg | every morning | | | 17 | 9 | | capsule | (before breakfast). | | | | | + + + +---------+ + + | propranolol | Take 160 mg by mouth | | 0 | | | | (INDERAL LA) 160 mg | Daily. | | | | 9 | | SR capsule | | | | | | + + + +---------+ + + | zolpidem (AMBIEN) | Take 1 tablet by | 30 | 2 | 09/25/20 | | | 5 mg | mouth nightly as | tablet | | 18 | 9 | | tabletIndications: | needed for Insomnia. | | | | | | Obstructive sleep | | | | | | | apnea, adult | | | | | | + + + +---------+ + + documented as of this encounter Plan of Treatment Not on filedocumented as of this encounter Procedures + +--------+ + + + | Procedure Name | Priori | Date/Time | Associated Diagnosis | Comments | | | ty | | | | + +--------+ + + + | FL EPIDURAL STEROID | Routin | 12/06/2018 | Lumbar | Results for this | | INJECTION LUMBAR | e | 2:53 PM | radiculopathy | procedure are in the | | TRANSFORAMINAL | | PST | | results section. | + +--------+ + + + documented in this encounter Results FL KELLY Lumbar Transforaminal (12/06/2018 2:53 PM PST) + + | Specimen | + + | | + + + + + | Narrative | Performed At | + + + | 12/06/2018 | [facility] | | Transforaminal Epidural Steroid InjectionDiagnosis: Lumbar | | | radiculopathyICD-10 Code M54.16 Uziel Rea presents to the | | | fluoroscopy suite for a fluoroscopically-guided left L2-L3 | | | transforaminal epidural steroid injection as part of conservative | | | management for chronic pain with lumbar radiculopathy and degenerative | | | disc disease. After informed consent was obtained, the patient lay | | | in the prone position on the fluoroscopy table. The area was | | | identified under fluoroscopic guidance. The area was prepped and | | | draped in sterile fashion. A 25-gauge, 1.5-inch needle was inserted | | | into this region and approximately 3 mL of buffered 1% lidocaine was | | | infused. Then, a 22-gauge spinal needle was inserted into the | | | posterior superior transforaminal space and advanced into the epidural | | | space under fluoroscopic guidance. Confirmation into the epidural | | | space was obtained with infusion of approximately 1 mL of Omnipaque | | | contrast which showed epidural flow as well as nerve sheath flow. | | | Then, a combination of 1.5 mL of 1% lidocaine and 1 mL of 10 | | | mg/mL Dexamethasone was infused. The patient tolerated the procedure | | | well without complications. Pre- and post-procedure blood pressures | | | were stable. The patient was given verbal as well as written | | | follow-up instructions. Prior to the start of the procedure, the | | | following were performed and/or verified, including correct patient | | | identity, correct site/side marked and visible, agreement on the | | | procedure to be done, correct patient positioning and an accurate | | | procedure consent form. Any safety precautions based on clinical | | | history and/or medication use have been addressed. I personally | | | performed the procedure above. Estimated blood loss: | | | MinimalComplications: NoneFindings: As expectedAnesthesia: Local | | | 1% Lidocaine | | |addressed. | | |I personally performed the procedure above. | | | | | |Estimated blood loss: Minimal | | |Complications: None | | |Findings: As expected | | |Anesthesia: Local 1% Lidocaine | | | | | + + + + +---------+ + + | Performing | Address | City/State/Zipcode | Phone Number | | Organization | | | | + +---------+ + + | [facility] | | | | + +---------+ + + documented in this encounter Visit Diagnoses + + | Diagnosis | + + | Lumbar radiculopathy Thoracic or lumbosacral neuritis or radiculitis, unspecified | + + documented in this encounter Administered Medications + +--------+ +-------+------+------+ | Medication Order | MAR | Action | Dose | Rate | Site | | | Action | Date | | | | + +--------+ +-------+------+------+ | dexamethasone (PF) 10 mg/mL | Given | 12/06/19 | 10 mg | | | | injection 10 mg 10 mg, Other, | | 19 3:03 | | | | | ONCE, 12/06/18 at 1515, For 1 | | PM PST | | | | | dose, When ordered IV push: | | | | | | | Dilute to 10-20 mL with NS and | | | | | | | give slowly over 1-2 minutes., | | | | | | + +--------+ +-------+------+------+ +---+---+ | | | +---+---+ + +-------+ +-------+---+---+ | iohexol (OMNIPAQUE 300) 300 | Given | 12/06/19 | 4 mLs | | | | mg/mL injection 4 mL 4 mL, | | 19 3:01 | | | | | INTRATHECAL, ONCE, Tue12/06/18 at | | PM PST | | | | | 1515, For 1 dose | | | | | | + +-------+ +-------+---+---+ +---+---+ | | | +---+---+ + +-------+ +-------+---+---+ | lidocaine (PF) 1% injection 2 | Given | 12/06/19 | 2 mLs | | | | mL 2 mL, Other, ONCE, 12/06/18 | | 19 3:03 | | | | | at 1515, For 1 dose | | PM PST | | | | + +-------+ +-------+---+---+ +---+---+ | | | +---+---+ + +-------+ +-------+---+ + | lidocaine buffered 0.9% | Given | 12/06/19 | 5 mLs | | Other | | injection 5 mL 5 mL, | | 19 2:59 | | | (Comment | | Intradermal, ONCE, 12/06/18 at | | PM PST | | | ) | | 1515, For 1 dose | | | | | | + +-------+ +-------+---+ + +---+---+ | | | +---+---+ documented in this encounter"
--- OUTSIDE RECORDS SUMMARY | ~2020-07-14 | XMS | Encounter Summary ---
Demographics + + + | Address | [address] | | | [place] [address] | + + + | Home Phone | | + + + | Preferred Language | Unknown | + + + | Marital Status | | + + + | Anabaptist Affiliation | Unknown | + + + | Race | White | + + + | Ethnic Group | Not or | + + + Author + + + | Author | [facility] | | | and [place] | + + + | Organization | [facility] | | | [...] [place], [place] | | | | | [address] | | + + + + + | Mao Rea | ECON | Unknown | | + + + + + | Meredith Rea | ECON | Unknown | | + + + + + Care Team Providers + +------+ + | Care Billing Specialist Name | Role | Phone | + +------+ + | Brandon Juarez MD | PCP | | + +------+ + Encounter Details +--------+ + + + + | Date | Type | Department | Care Team | Description | +--------+ + + + + | 10/21/ | Hospital | [facility] | Ender [place] | Hip pain, chronic, | | 2014 | Encounter | MED CTR XRAY [address] | [address] | left | | | | [address] [place] | [address] [place], [place] | | | | | [place] [address] | [id number] | | | | | [phone] | | | +--------+ + + + [...] | | 0 | | | | diclofenac-misoprost | mouth Daily. | | | | 7 | | ol (ARTHROTEC 75) | | | | | | | 75-0.2 mg per tablet | | | | | | + + + +---------+ + + | DULOXETINE HCL PO | Take 30 mg by mouth | | 0 | | | | | 2 times daily. | | | | 7 | + + + +---------+ + + | gabapentin | Take 800 mg by mouth | | 0 | | | | (NEURONTIN) 400 mg | 3 times daily. | | | | 7 | | capsule | | | | | | + + + +---------+ + + | Golimumab (SIMPONI | Inject into the | | 0 | | | | ARIA IV) | vein. Currently once | | | | 6 | | | every 4 weeks | | | | | + + + +---------+ + + | leflunomide | Take 10 mg by mouth | | 0 | | | | (ARAVA) 10 mg tablet | Daily. 5mg weekdays | | | | 7 | | | only | | | | | + + [...] +---------+ + + | sulfaSALAzine | Take 1,500 mg by | | 0 | | | | (AZULFIDINE) 500 mg | mouth Daily. | | | | 6 | | tablet | | [...] + +--------+ + + + | XR HIP LEFT 2 + VW | Routin | 10/21/2015 | Hip pain, chronic, | Results for this | | | e | 11:08 AM | left | procedure are in the | | | | PST | | results section. | + +--------+ + + + documented in this encounter Results XR Hip Left 2 + Vw (10/21/2015 11:08 AM PST) + + | Specimen | + + | | + + + + + | Narrative | Performed At | + + + | XR HIP LEFT 2 + VW. 10/21/2015 11:08 AM HISTORY: hip pain . | [facility] | | COMPARISON: None available. FINDINGS: Proximal left femur | [facility] | | appears intact, without evidence of fracture or dislocation. No | [facility] | | significant joint space narrowing or other degenerative change at the | - IMAGING | | left hip. Visualized portions of the left hemipelvis appear intact. | | | Unremarkable overlying soft tissues. IMPRESSION - No | | | radiographic evidence of fracture or dislocation. No acute | | | abnormality of the left hip on CT. Dictated and Signed by: Alfred | | | MD Crystal Electronically signed: 10/21/2015 1:41 PM | | + + + + + | Procedure Note | + + | Alexis, Rad Results In - 10/21/2015 1:45 PM PST XR HIP LEFT 2 + VW. 10/21/2015 11:08 | | AMHISTORY: hip pain . COMPARISON: None available.FINDINGS:Proximal left femur appears | | intact, without evidence of fracture or dislocation. No significant joint space | | narrowing or other degenerative change at the lefthip. Visualized portions of the left | | hemipelvis appear intact. Unremarkableoverlying soft tissues.IMPRESSION -No | | radiographic evidence of fracture or dislocation. No acute abnormality ofthe left hip | | on CT.Dictated and Signed by: Alfred Rojas MD Electronically signed: 10/21/2015 | | 1:41 PM | | No significant joint space narrowing or other degenerative change at the left | |hip. Visualized portions of the left hemipelvis appear intact. Unremarkable | |overlying soft tissues. | | | | | |IMPRESSION - | |No radiographic evidence of fracture or dislocation. No acute abnormality of | |the left hip on CT. | | | |Dictated and Signed by: Alfred Rojas MD | | Electronically signed: 10/21/2015 1:41 PM | + + + + + + + | Performing | Address | City/State/Zipcode | Phone Number | | Organization | | | | + + + + + | [address] | [address] | [place] | [phone] | | [facility] | | [address] | | | - IMAGING | | | | + + + + + documented in this encounter Visit Diagnoses + + | Diagnosis | + + | Hip pain, chronic, left | + + documented in this encounter"
--- OUTSIDE RECORDS SUMMARY | ~2020-07-14 | XMS | Encounter Summary ---
Demographics + + + | Address | [address] | | | [place] [address] | + + + | Home Phone | | + + + | Preferred Language | Unknown | + + + | Marital Status | | + + + | Religion Affiliation | Unknown | + + + | Race | White | + + + | Ethnic Group | Not or | + + + Author + + + | Author | [facility] | | | and [place] | + + + | Organization | [facility] | | | [...] [place], [place] | | | | | [address] | | + + + + + | Mao Rea | ECON | Unknown | | + + + + + | Meredith Rea | ECON | Unknown | | + + + + + Care Team Providers + +------+ + | Care Sorter Upholstery Parts Name | Role | Phone | + +------+ + | Brandon Juarez MD | PCP | | + +------+ + Encounter Details +--------+ + + + + | Date | Type | Department | Care Team | Description | +--------+ + + + + | 11/27/ | Hospital | [facility] | Koby George MD | Sleep apnea, | | 2014 | Encounter | MED CTR | [address] | obstructive; | | | | [facility] | [place] [address] | Essential | | | | [address] [facility] | [phone] | hypertension, | | | | [place] [address] | | benign; Fatigue; | | | | [phone] | | Cancer (HCC); | | | | | | Hypothyroid; | | | | | | Anxiety; Arthritis; | | | | | | Preoperative | | | | | | clearance; | | | | | | RHEUMATOID | | | | | | ARTHRITIS; NSAID | | | | | | long-term use | +--------+ + + + + Social [...] | | | | diclofenac-misoprost | mouth 2 times daily. | | | | 5 | | ol (ARTHROTEC 75) | | [...] needed | | 0 | 07/14/20 | | [...] + +---------+ + + | hydroxychloroquine | Two tablets daily. | | 0 | 07/14/20 | | | (PLAQUENIL) 200 mg | | | | 12 | 5 [...] | 0 | 07/14/20 | | | (ARAVA) 10 mg tablet | Daily. | | | 12 | 5 | + + + +---------+ + + | levothyroxine | Take 75 mcg by mouth | | 0 | | 09/17/201 | | (SYNTHROID, | every morning | [...] + + + +---------+ + + | nabumetone | Take 750 mg by mouth | | 0 | 07/14/20 | | | (RELAFEN) 750 mg | Daily as needed. | | | 12 | 5 | | tablet | | | | | | + + + +---------+ + + | OLANZapine | Half tablet daily | | 0 | 07/14/20 | | | (ZYPREXA) 15 MG | | | | 12 | 5 [...] | | (AZULFIDINE) 500 mg | mouth 2 times daily. | | | | 5 | | [...] | | | (ACTEMRA IV) | vein. 800 units | | | | 5 | | | every 4 weeks | [...] + + documented as of this encounter Procedure Notes Christopher Alvarado MD - 11/29/2014 7:31 AM PSTAssociated Order(s): ECG 12 LEAD Adult ECG Repo rt Name: Uziel Rea Age: 69 y.o. Gender: male 11/27/14 at 9:12 Narrative Interpretation: Sinus bradycardia. Normal axis. Normal intervals. NLISA NAVAS [facility] - 12:00 AM PST document ed in this encounter Plan of Treatment Not on filedocumented as of this encounter Procedures + +--------+ + + + | Procedure Name | Priori | Date/Time | Associated Diagnosis | Comments | | | ty | | | | + +--------+ + + + | ECG 12 LEAD | Routin | 11/29/2014 | Sleep apnea, | Results for this | | | e | 7:31 AM | obstructive | procedure are in the | | | | PST | Essential | results section. | | | | | hypertension, benign | | | | | | Fatigue Cancer | | | | | | (HCC) Hypothyroid | | | | | | Anxiety Arthritis | | | | | | Preoperative | | | | | | clearance | | | | | | RHEUMATOID ARTHRITIS | | | | | | NSAID long-term | | | | | | use | | + +--------+ + + + documented in this encounter Results ECG 12 lead (11/29/2014 7:31 AM PST) + + + | Narrative | Performed At | + + + | Christopher Alvarado MD 11/29/2014 7:31 Adult ECG Report | | | Name: Uziel Rea Age: 69 y.o. Gender: male 11/27/14 at | | | 9:12 Narrative Interpretation: Sinus bradycardia. Normal axis. | | | Normal intervals. | | + + + + + | Procedure Note | + + | Christopher Alvarado MD - 11/29/2014 7:31 AM PST Adult ECG Report | | | | Name: Uziel Rea | | Age: 69 y.o. | | Gender: male | | | | 11/27/14 at 9:12 | | Narrative Interpretation: Sinus bradycardia. Normal axis. Normal intervals. | + + documented in this encounter Visit Diagnoses + + | Diagnosis | + + | Sleep apnea, obstructive Obstructive sleep apnea (adult) (pediatric) | + + | Essential hypertension, benign | + + | Fatigue Other malaise and fatigue | + + | Cancer (HCC) Other malignant neoplasm without specification of site | + + | Hypothyroid Unspecified hypothyroidism | + + | Anxiety Anxiety state, unspecified | + + | Arthritis Arthropathy, unspecified, site unspecified | + + | Preoperative clearance Preoperative examination, unspecified | + + | RHEUMATOID ARTHRITIS Rheumatoid arthritis | + + | NSAID long-term use Encounter for long-term (current) use of non-steroidal | | anti-inflammatories | + + documented in this encounter"
--- OUTSIDE RECORDS SUMMARY | ~2020-07-14 | XMS | Encounter Summary ---
Demographics + + + | Address | [address] | | | [place] [address] | + + + | Home Phone | | + + + | Preferred Language | Unknown | + + + | Marital Status | | + + + | Methodist Affiliation | Unknown | + + + | Race | White | + + + | Ethnic Group | Not or | + + + Author + + + | Author | [facility] | | | and [place] | + + + | Organization | [facility] | | | [...] [place] | | | | | [address] | | + + + + + | Mao Rea | ECON | Unknown | | + + + + + | Meredith Rea | ECON | Unknown | | + + + + + Care Team Providers + +------+ + | Care Iv Rn Name | Role | Phone | + [...] Description | +--------+---------+ + + + | 07/17/ | Office | [facility] | Logan Soto, | Chronic left-sided | | 2018 | Visit | PHYSIATRY [address] | [address] | low back pain with | | | | [address] | [place] | left-sided sciatica | | | | [place] | [id number] | (Primary Dx); Lumbar | | | | [address] | | radiculopathy; | | | | [phone] | | History of lumbar | | | | | | fusion; Failed back | | | | | | surgical syndrome; | | | | | | Left leg weakness; | | | | | | Bilateral leg | | | | | | numbness; Probalble | | | | | | Idiopathic | | | | | | Parkinson's disease | | | | | | ([facility]); Parkinsonian | | | | | | tremor (HCC) | +--------+---------+ + + + Social [...] + + + | Blood Pressure | - | - | | + + + + + | Pulse | - | - | | + + + + + | Temperature | - | - | | + + + + + | Respiratory Rate | 22 | 07/17/2018 10:29 AM | | | | | PDT | | + + + + + | Oxygen Saturation | - | - | | + + + + + | Inhaled Oxygen | - | - | | | Concentration | | | | + + + + + | Weight | 104.3 kg (230 lb) | 07/17/2018 10:29 AM | | | | | PDT | | + + + + + | Height | 172.7 cm (5' 8") | 07/17/2018 10:29 AM | | | | | PDT | | + + + + + | Body Mass Index | 34.97 | 07/17/2018 10:29 AM | | | | | PDT [...] Instructions Patient Instructions Petra Prater RN - 07/17/2018 10:20 AM PDTPlease attend the inject ion appointment with Luis Carlos Jiménez MD. If his office has not contacted you within one we ek, to schedule the injection, please contact my clinic. Your injection will be performed a [facility]. Please take note of whether your pain is s ignificantly reduced in the hours immediately following the injection. Follow-up at the hospital thirty minutes before [...] of the procedure you must provide a motor vehicle escort driver to take you home. For all procedur es it is recommended that someone else drive you home. documented in this encounter Progress Notes Logan Soto MD - 07/17/2018 10:20 AM PDTFormatting of this note might be different fro m the original. Logan Soto MD [address] [place] [address], [address] [place] [phone] FAX: PHYSICAL MEDICINE AND REHABILITATION H&P CHIEF COMPLAINT: Chief Complaint Patient presents with Back Pain HISTORY OF PRESENT ILLNESS: Uziel Rea is a 73 y.o. male being seen today in follow-up for complaints of back raj n and to review response to interventional injections. Uziel eRa was last seen on 02/28/18. Previously it was recommended that he complete treatment with Dr. Jiménez. As a side note, Uziel Rea indicates that he was recently diagnosed with Parkinson's, and is under care of Dr. Dawson. Overall Uziel Rea reports that his symptoms were improved after injection, but are n ow worsening. Uziel Rea rates the pain as 7 on scale of 1-10. Uziel Rea desc ribes the pain as sharp. His symptoms worsen with all activity. His symptoms improve with rest. Uziel Rea does describe numbness of the bilateral feet. He does report weak ness of the bilateral legs, worse to the left. Uziel Rea reports having two separate falls with no major injury since the last visi t. While outside his home he uses a single point cane to assist with ambulation. He does not have bowel and bladder dysfunction. He does not have saddle anesthesia. Treatments for these complaints have included medication, PT, and steroid injections,and casiano rgical interventions. Uziel Rea is currently taking Cymbalta 60 mg and gabapentin 40 0 mg once daily, for treatment his of pain. Prior injections have included left L2-L3 transforaminal epidural steroid injection . Injec tion was completed 03/24/18, with Dr. Jiménez. Uziel Rea reports having approximat esther 70% improvement directly following the injection. Uziel Rea reports that 2 weeks following the injection they experienced approximately 80% improvement to the pain. Today Ramos reports that the effects of the injection seemed to fully wear off on 8. Uziel Rea's medications, allergies, past medical, surgical, social and family histor ies were reviewed and updated as appropriate. CURRENT MEDICATIONS: Current Outpatient Prescriptions Medication Sig Dispense Refill Ascorbic Acid (VITAMIN C WITH TOM HIPS) 500 MG tablet Take 500 mg by mouth Daily. Calcium Carb-Cholecalciferol (CALCIUM + D3) 600-800 MG-UNIT TABS Take 2 tablets by mout h Daily. Calcium Carbonate-Vit D-Min (CALCIUM 1200 PO) CHEW: Daily cariprazine (VRAYLAR) 3 mg capsule Cholecalciferol (VITAMIN D-3) 2000 units CAPS Take 2,000 Units by mouth 2 times daily. cyanocobalamin (VITAMIN B-12) 1000 MCG tablet Take 1,000 mcg by mouth Daily. DULoxetine (CYMBALTA) [address] capsule fish oil 1,000 mg capsule Take 2,000 mg by mouth 2 times daily. fluticasone (FLOVENT HFA) 110 mcg/puff inhaler Inhale 1 puff into the lungs 2 times jake ly. gabapentin (NEURONTIN) 400 mg capsule Take 400 mg by mouth 3 times daily. glucosamine-chondroitin (GLUCOSAMINE-CHONDROITIN DS) 500-400 MG tablet Take 1 tablet by mouth Daily. l-methylfolate 7.5 mg tablet L-METHYLFOLATE PO Take 1 tablet by mouth [...] daily. methotrexate (PF) 25 mg/mL injection Inject 0.6 mg into the muscle Once a week. methotrexate, PF, (RASUVO) 30 mg/0.6 mL injection Inject 30 mg under the skin Once a we ek. Misc Natural Products (TURMERIC CURCUMIN) CAPS Take 2 capsules by mouth Daily. Multiple Vitamins-Minerals (A THRU Z ADVANCED) TABS mycophenolate (CELLCEPT) 250 mg capsule Take 500 mg by mouth 2 times daily. mycophenolate (CELLCEPT) 500 MG tablet Take by mouth 2 times daily. [place]-3 Fatty Acids (FISH OIL) 1200 MG CAPS Take 2 capsules by mouth Daily. omeprazole (PRILOSEC) 20 mg capsule Take 20 mg by mouth 2 times daily. propranolol (INDERAL LA) 160 mg SR capsule Take 160 mg by mouth Daily. simvastatin (ZOCOR) 40 mg tablet Take 40 mg by mouth Daily. sulfaSALAzine (AZULFIDINE) 500 MG EC tablet Take 500 mg by mouth 2 times daily. terbinafine (LAMISIL) 250 MG tablet UNABLE TO FIND Take 1 tablet by mouth Daily. terbinofine 250 mg No current facility-administered medications for this visit. [...] Genitourinary: Positive for frequency and urgency. Incontinence Skin: Negative. Neurological: Positive for tingling, tremors, sensory change, focal weakness and weakness. Negative for speech change, seizures and loss of consciousness. Endo/Heme/Allergies: Negative. Psychiatric/Behavioral: Positive for depression. The patient is nervous/anxious. PHYSICAL EXAMINATION: Body mass index is 34.97 kg/m. Vitals: 07/17/18 1029 Resp: 22 PainSc: 7 PainLoc: Back GENERAL: The patient is well developed and [...] memory. The cranial nerves appear grossly intact. Sensory exam: sensation intact to light touch in the upper and lower extremities. Decreased sensation with monofilament testing to bilateral L4-L5 dermatome distribution. MOTOR EXAM: (5 IS NORMAL) * Indicates pain limited MUSCLE/ MOVEMENT: RIGHT LEFT Deltoids 5 5 Biceps 5 5 Triceps 5 5 Wrist Flexion 5 5 Wrist Extension 5 5 Finger Abduction 5 5 Bail Bond Agent Strength 5 5 Hip Flexion 5 5 Hip Extension 5 5 Knee Flexion 5 4 Knee Extension 5 5 Extensor Hallicus Longus 5 5 Ankle Dorsiflexion 5 4 Plantarflexion 5 5 REFLEX: RIGHT LEFT BICEPS 2+ 2+ BRACHIORADIALIS 2+ 2+ TRICEPS 2+ 2+ PATELLAR 2+ 2+ ACHILLES 1+ 1+ Resting tremor to bilateral hands, worse to right, tremor to jaw noted. MUSCULOSKELETAL : The patient localized the majority of the pain to the lumbar region. Ilan's maneuver test negative. Lumbar facet loading was negative. There was no redness, effusion, warmth or joint line tenderness in the knees or ankles. DATABASE: Lumbar x-rays from 02/14/2018 imaging was personally reviewed by me. I concur with finding s as reported by the radiologist. Imaging demonstrates; status post posterior fusion of L2-S q with bilateral iliac screw. ASSESSMENT: 1. Chronic left-sided low back pain with left-sided sciatica 2. Lumbar radiculopathy 3. History of lumbar fusion 4. Failed back surgical syndrome 5. Left leg weakness 6. Bilateral leg numbness 7. 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 Uziel Rea returns to the clinic today to discuss his back pain and to review his response to completed Steroid injections. 2. Uziel Rea indicates that he has been newly diagnosed with Parkinson's disorder. He was encouraged to continue his care under Dr. Dawson. Uziel Rea indicates since the last visit he has experienced two separate falls. Tovinnie roque we dicussed changes that may be made in an effort to reduce fall risk; he was encourage to avoid use of throw rugs in the house, he was advised to have well lighted walking pathways throughout the house, he was advised to exercise caution with pets as they cause a tripping hazard. 3.Uziel was encouraged to continue physical exercises as outlined by PT. Uziel Rea was advised that he should contact the clinic in the future if he would li ke to pursue different assistive devised for ambulation. For now, he indicates he will nesha nue to use his single point cane as needed. 4. Uziel Rea is advised that if he has a loss of bowel or bladder control that He sh ould seek emergent medical attention. Uziel Rea was instructed that if He has progres sive or profound weakness that He needs to seek urgent medical attention. Uziel Rea has been advised that if He has any significant changes in strength that Marisol salazar should return to the clinic on an earlier basis. He was especially advised that he should report any onset of focal weakness. 5. In the past Uziel Rea has noticed significant improvement to back pain with left leg symptoms after TFESI. Uziel Rea has completed PT, home exercise programs, he has tried medication. Past injections have offered approximately 4 months of reduced symptoms. Today we discussed repeat treatment with a left L2-L3 TFESI. Steroid injections are consi dered a temporary treatment given with the goal of reducing symptoms. The injection will no t fix or cure the underlying cause of the pain. The goal of the steroid injection is to min imize swelling and inflammation that may be causing symptoms of pain. Uziel Rea was advised that on average an injection may offer 4-6 months of reduced pain, with 4 months torrie ng the average. Steroid injections, if needed, may be repeated up to three times yearly. Uziel Rea will have a repeat injection completed under fluoroscopy with Dr. Melissa ruiz. Uziel Rea was instructed to keep a detailed pain diary of the response to treatment and will return the pain diary to our office 2 weeks after the procedure. 5. Uziel Rea will be scheduled to return to the clinic in 4 months to review his res ponse and to evaluate if another repeat injection is needed. I spent 30 minutes in visit with Uziel Rea today with the majority of time spent cou nselling the patient on his diagnosis, options for his care, and coordinating his care. I, Logan Soto MD personally performed the services described in this documentation, as scribed by in my presence, Petra Prater RN and are both accurate and complete. Logan Soto MD - 07/17/2018 documented in this en counter Plan of Treatment Not on filedocumented as [...] referable to limbs | + + | Bilateral leg numbness Disturbance of skin sensation | + + | Probalble Idiopathic Parkinson's disease (HCC) Paralysis agitans | + + | Parkinsonian tremor (HCC) Paralysis agitans | + + documented in this encounter
--- OUTSIDE RECORDS SUMMARY | ~2020-07-14 | XMS | Encounter Summary ---
Demographics + + + | Address | [address] | | | [place] [address] | + + + | Home Phone | | + + + | Preferred Language | Unknown | + + + | Marital Status | | + + + | Confucianism Affiliation | Unknown | + + + | Race | White | + + + | Ethnic Group | Not or | + + + Author + + + | Author | [facility] | | | and [place] | + + + | Organization | [facility] | | | and [...] [place] | | | | | [address] | | + + + + + | Mao Rea | ECON | Unknown | | + + + + + | Meredith Rea | ECON | Unknown | | + + + + + Care Team Providers + +------+ + | Care Sales Floor Team Leader Name | Role | Phone | + [...] | Lumbar | T[place], | [address] | | | | | radiculopath | Luis Carlos Lerner MD | [place], | | | | | y | [address] | [place] | | | | | Procedures | [place] | [address] | | | | | [place] INJECT | [facility], [place] | Phone: | | | | | ANES/STEROID | [address] | [phone] | | | | | FORAMEN | Phone: | Fax: | | | | | LUMBAR/SACRA | [phone] | [phone] | | | | | L [address] IMG | Fax: | | | | | | GUIDE ,1 | [phone] | | | | | | [place] | | | | | | | [...] | | | | | | Charles Jr | | | +--------+--------+ + + + + Encounter Details +--------+ + + + + | Date | Type | Department | Care Team | Description | +--------+ + + + + | 07/24/ | Hospital | [facility] | Eric, | Lumbar radiculopathy | | 2018 | Encounter | MED CTR XRAY [address] | [address] | | | | | [place] | [facility] [address] | | | | | [place] [address] | [place] [address] | | | | | [phone] | [phone] | | | | | | | | | | | | Pest Control Service Technician, [facility] | | | | | | [place] [...] +---------+ + + | Blood Pressure | 151/79 | 07/24/2018 4:58 PM | | | | | PDT | | + +---------+ + + | Pulse | 72 | 07/24/2018 4:58 PM | | | | | PDT [...] 4 TO 6 | | 0 | 12/01/19 | | | (XOPENEX HFA) 45 | [...] + + + +---------+ + + | cariprazine | | | 0 | | | | (VRAYLAR) 3 mg | | | | | 8 | | capsule | | [...] + + + +---------+ + + | methotrexate, PF, | Inject 30 mg under | | 0 | | | | (RASUVO) 30 mg/0.6 | the skin Once a | | | | 8 | | mL injection | week. | | | | | + + + +---------+ + + | mycophenolate | Take by mouth 2 | | 0 | | | | (CELLCEPT) 500 MG | times daily. | | | | 8 [...] + + + +---------+ + + | [place]-3 Fatty | Take 2 capsules by | [...] + + + +---------+ + + | terbinafine | Take 250 mg by mouth | | 0 | 04/28/20 | | | (LAMISIL) 250 MG | Daily. | | | 18 | 9 | | tablet | | | | | | + + + +---------+ + + | UNABLE TO FIND | Take 1 tablet by | | 0 | | | | | mouth Daily. | | | | 8 | | | terbinofine 250 mg | | | | | + + [...] | FL EPIDURAL STEROID | Routin | 07/24/2018 | Lumbar | Results for this | | INJECTION LUMBAR | e | 4:37 PM | radiculopathy | procedure are in the | | TRANSFORAMINAL | | PDT | | results section. | + +--------+ + + + documented in this encounter Results FL KELLY Lumbar Transforaminal (07/24/2018 4:37 PM PDT) + + | Specimen | + + | | + + + + + | Narrative | Performed At | + + + | 07/24/2018 | [facility] | | Transforaminal Epidural [...] dexamethasone (PF) 10 mg/mL | Given | 07/24/20 | 10 mg | | | | injection 10 mg 10 mg, Other, | | 18 4:50 | | | | | ONCE, 07/24/18 at 1700, For 1 | | PM PDT | | | | | dose | | | | | | + +--------+ +-------+------+------+ +---+---+ | | | +---+---+ + +-------+ +-------+---+---+ | iohexol (OMNIPAQUE 300) 300 | Given | 07/24/20 | 4 mLs | | | | mg/mL injection 4 mL 4 mL, | | 18 4:45 | | | | | Other, ONCE, 07/24/18 at 1700, | | PM PDT | | | | | For 1 dose | | | | | | + +-------+ +-------+---+---+ +---+---+ | | | +---+---+ + +-------+ +-------+---+---+ | lidocaine (PF) 1% injection 2 | Given | 07/24/20 | 2 mLs | | | | mL 2 mL, Other, ONCE, Mon | | 18 4:50 | | | | | 07/24/18 at 1700, For 1 dose | | PM PDT | | | | + +-------+ +-------+---+---+ +---+---+ | | | +---+---+ + +-------+ +-------+---+ + | lidocaine buffered 1.3% | Given | 07/24/20 | 3 mLs | | Other | | injection 3 mL 3 mL, | | 18 4:40 | | | (Comment | | Intradermal, ONCE, 07/24/18 at | | PM PDT | | | ) | | 1700, For 1 dose | | | | | | + +-------+ +-------+---+ + +---+---+ | | | +---+---+ documented in this encounter"
--- OUTSIDE RECORDS SUMMARY | ~2020-07-14 | XMS | Encounter Summary ---
Demographics + + + | Address | [address] | | | [place] [address] | + + + | Home Phone | | + + + | Preferred Language | Unknown | + + + | Marital Status | | + + + | Samaritan Affiliation | Unknown | + + + | Race | White | + + + | Ethnic Group | Not or | + + + Author + + + | Author | [facility] | | | and [place] | + + + | Organization | [facility] | | [...] [place] | | | | | [address] | | + + + + + | Mao Rea | ECON | Unknown | | + + + + + | Meredith Rea | ECON | Unknown | | + + + + + Care Team Providers + +------+ + | Care Pet Training Instructor Name | Role | Phone | + +------+ + | Sherie Vela PA-C | PCP | | + +------+ + Reason for Visit + +--------+ + | Reason | Onset | Comments | | | Date | | + +--------+ + | Referral | 01/14/ | | | | 2020 | | + +--------+ + Encounter Details +--------+ + + + + | Date | Type | Department | Care Team | Description | +--------+ + + + + | 01/14/ | Telephone | [facility] | Thanh Guevara MD | Referral | | 2020 | | GENERAL SURGERY [address] | [address] | | | | | [address] | [address] [place], [place] | | | | | [place], [place] | [phone] | | | | | [address] | | | | | | [phone] | | | +--------+ + + + [...] this encounter Miscellaneous Notes Telephone Encounter - Vesta Acharya - 01/16/2020 8:27 AM PDTBette, is calling again fo r Referral and would like a call back. Additional Call Details: Inquiring on referral status,to be scheduled. elephone Encounter - Citlalli Barillas I - 01/15/2020 8:22 AM PDTBette-spouse, is calling regarding Referral and would like a call back. Additional Call Details: Schedule from new Urgent referral. Call back on home number liste d. If this is a symptom based call, was patient offered triage? Not Applicable If this is a symptom based call and you were unable to immediately transfer the call to a homero chavez transportation museum helper was caller made aware that if at any time he feels it is an emergency they marisela uld call 911 or go to the nearest emergency room? not applicable documented in this encounter Plan of Treatment Not on filedocumented as of this encounter Visit Diagnoses Not on filedocumented in this encounter"
--- OUTSIDE RECORDS SUMMARY | ~2020-07-14 | XMS | Encounter Summary ---
Demographics + + + | Address | [address] | | | [place] [address] | + + + | Home Phone | | + + + | Preferred Language | Unknown | + + + | Marital Status | | + + + | Mosque Affiliation | Unknown | + + + | Race | White | + + + | Ethnic Group | Not or | + + + Author + + + | Author | [facility] | | | and [place] | + + + | Organization | [facility] | | | [...] [place], [place] | | | | | [address] | | + + + + + | Mao Rea | ECON | Unknown | | + + + + + | Meredith Rea | ECON | Unknown | | + + + + + Care Team Providers + +------+ + | Care Visual Inspector Name | Role | Phone | + +------+ + | Brandon Juarez MD | PCP | | + +------+ + Reason for Visit + + + | Reason | Comments | + + + | Pre-op Exam | Surgery on 02/23/17 | + + + Encounter Details +--------+---------+ + + + | Date | Type | Department | Care Team | Description | +--------+---------+ + + + | 02/18/ | Office | [facility] | Koby George MD | Pseudoarthrosis of | | 2016 | Visit | NEUROSURGERY [address] | [address] | lumbar spine | | | | [address] | [place] [address] | (Primary Dx); S/P | | | | [place] | [phone] | lumbar fusion; | | | | [address] | | Synovial cyst of | | | | [phone] | | lumbar facet joint; | | | | | | Lumbar | | | | | | radiculopathy; Facet | | | | | | arthropathy, lumbar | +--------+---------+ + + + Social [...] + + + | Blood Pressure | 138/80 | 02/18/2017 8:06 AM | | | | | PDT | | + + + + + | Pulse | 55 | 02/18/2017 8:06 AM | | | | | PDT | | + + + + + | Temperature | - | - | | + + + + + | Respiratory Rate | 16 | 02/18/2017 8:06 AM | | | | | PDT | | + + + + + | Oxygen Saturation | - | - | | + + + + + | Inhaled Oxygen | - | - | | | Concentration | | | | + + + + + | Weight | 88.9 kg (196 lb) | 02/18/2017 8:06 AM | | | | | PDT | | + + + + + | Height | 172.7 cm (5' 8") | 02/18/2017 8:06 AM | | | | | PDT | | + + + + + | Body Mass Index | 29.8 | 02/18/2017 8:06 AM | | | | | PDT [...] encounter Progress Notes Koby George MD - 02/18/2017 12:17 PM PDTFormatting of this note might be different from t he original. Koby George MD [address] [place] [address], [address] [place], [place] [id number] FAX: NEUROSURGERY FOLLOW-UP CHIEF COMPLAINT: Chief Complaint Patient presents with Pre-op Exam Surgery on 02/23/17 HISTORY OF PRESENT ILLNESS: The patient is a 71 y.o. male that had a lumbar fusion for spo ndylolisthesis around December 2014. He returns and overall is doing poorly. The patient w as previously seen in our office. We've reviewed his MRI showing bilateral facet cysts. We sent him for further evaluations including x-rays and CT scan of his bar spine. He is here today to review the results and make further recommendations. He continues on immunosuppre ssants for his rheumatoid arthritis. After his last surgery he was off of this for approxim ately 3 months. He is currently working with a pain medicine clinic. The patient has a his tory of colon cancer in 2003 without recurrence. He has continued with surveillance for his problem without issue. The patient complains of increased problems with left leg pain. He has pain radiating down his posterior thigh and into his winters and lateral foot on the left side. No right-sided sy mptoms. He has some chronic numbness in his lateral left leg. He has bilateral foot numbne ss which is also been ongoing. He has followed with physiatry and recently had left sided e pidural steroid injection. Good diagnostic improvement for about 4 days but no therapeutic improvement of his symptoms. He is here to discuss his options again after obtaining a full workup. He would like to consider further surgery if that would be reasonable. PAST MEDICAL HISTORY: Past Medical History Diagnosis Date Depression Arthritis rheumatoid Cancer (HCC) 2003 colon cancer Anxiety Hypothyroid Hard of hearing bilateral hearing aids Rheumatoid arthritis (HCC) Tremor Sleep apnea no CPAP Lumbar radiculopathy Degenerative disc disease, lumbar PAST SURGICAL HISTORY: Past Surgical History Procedure [...] aterality: N/A; Surgeon: Koby George MD; Location: [facility] MAIN OR CURRENT MEDICATIONS: Current Outpatient [...] tablet Take 1 tablet by mouth Daily. L-METHYLFOLATE PO Take 1 tablet by mouth Daily. leflunomide (ARAVA) 10 mg tablet Take 10 mg by mouth Daily. 5mg weekdays only levothyroxine (SYNTHROID, LEVOTHROID) 75 MCG tablet Take 75 mcg by mouth every morning (before breakfast). lidocaine-prilocaine (EMLA) cream Apply 1 Application topically as needed. lithium 300 mg capsule Take 300 mg by mouth Daily. medical marijuana (CANNABIS) inhalation Inhale 1-5 puffs into the lungs Twice daily as needed. Methotrexate, Anti-Rheumatic, (METHOTREXATE, PF, SC) Inject 0.9 mLs under the skin Once a week. METHYLCOBALAMIN PO Take 1,000 mcg by mouth Daily. Misc Natural Products (TURMERIC CURCUMIN) CAPS Take 1 capsule by mouth Daily. Multiple Vitamins-Minerals (A THRU Z ADVANCED) TABS Omeprazole Magnesium ([employer] OMEPRAZOLE) 20.6 (20 BASE) MG CPDR Daily (Patient taking diff erently: Take by mouth 2 times daily.) oxyCODONE-acetaminophen (PERCOCET) 10-325 mg per tablet Take 1 tablet by mouth every 4 hours as needed. propranolol (INDERAL) 20 MG tablet Take 20 mg by mouth 3 times daily. simvastatin (ZOCOR) 40 mg tablet Take 40 mg by mouth Daily. sulfaSALAzine (AZULFIDINE) 500 MG EC tablet Take 1,000 mg by mouth Daily. tofacitinib (XELJANZ XR) 11 mg tablet Take 11 mg by mouth Daily. ziprasidone (GEODON) 80 [...] disease Father Heart attack Father REVIEW OF SYSTEMS: The patient's full review of systems from 09/03/2016 was reviewed in full and there are no c hanges to this complete review of systems. INTERIM PHYSICAL EXAMINATION: Blood pressure 138/80, pulse 55, resp. rate 16, height 1.727 m (5' 8"), weight 88.905 kg (1 96 lb). Body mass index is 29.81 kg/(m^2). GENERAL: Uziel Rea is in no acute distress with unlabored respirations. HEENT: NCAT CHEST: Clear HEART: Bradycardic rate and rhythm ABDOMEN: Soft, NT, ND SPINE: The patient s incision is well healed. EXTREMITIES: No lower extremity edema. NEUROLOGICAL EXAMINATION: MENTAL STATUS: The patient is awake, alert, and oriented. He follows simple and complex commands MOTOR EXAM: Motor strength is EHL is 4+ bilaterally. knee flexion and extension 4+ on the left. Dorsiflexion is 4+ on the right 4 on the left SENSORY EXAM: The sensory examination shows decreased sensation to light touch over the lat eral and posterior left leg and feet bilaterally RADIOGRAPHIC REVIEW: The patient's lumbar MRI shows foraminal stenosis at L5-S1 worse on the left. There is a s mall synovial cyst on the right and the left CT scan of his lumbar spine shows L5 right screw is loose with early signs of loosening on his L5 left screw the remainder of the hardware appears to be intact. In addition the patie nt has inadequate bone growth across the operative level in the interbody areas. There is s ome posterior lateral fusion at L2-3 ASSESSMENT: Encounter Diagnoses Name Primary? Pseudoarthrosis of lumbar spine Yes S/P lumbar fusion Synovial cyst of lumbar facet joint Lumbar radiculopathy Facet arthropathy, lumbar Past Medical History Diagnosis Date Depression Arthritis rheumatoid Cancer (HCC) 2003 colon cancer Anxiety Hypothyroid Hard of hearing bilateral hearing aids Rheumatoid arthritis (HCC) Tremor Sleep apnea no CPAP Lumbar radiculopathy Degenerative disc disease, lumbar PLAN: Overall, the patient is doing poorly. I reviewed the MRI and CT scan and x-rays again with him today. I discussed with the patient L5-S1 TLIF with hardware revision and additional posteriolater al fusion. I discussed with the patient today the use of BMP despite his history of colon a nd prostate cancer. Discussed with the patient the theoretical possibility of recurrence of cancer using this medication. He also discussed the discontinuing of his immunosuppressant and then after surgery. Perhaps we will need to have him stay off of his immunosuppressant longer after surgery as well to cupola tapper helper in the fusion process. He would like to proceed with surgery as discussed. We discussed the risks, alternatives, and benefits [...] him with the best possible outcome. I am prescribing a brace before surgery to improve his stability now to support his weak mu scles and to reduce pain by restricting mobility. For multiple (more than 1 level) fusions, I am also prescribing a bone growth stimulator po stoperatively. This is to improve the probability and rate of fusion. ELECTRONICALLY SIGNED BY: Koby George MD, 02/18/2017 12:17 arverAnnika RN - 9:06 AM PDTPatient in office for pre op appointment. Patient advised at this time to stop: Patient verbalized understanding. All questions answered at this time. documented in this encou nter Plan of Treatment Not on filedocumented as of this encounter Visit Diagnoses + + | Diagnosis | + + | Pseudoarthrosis of lumbar spine - Primary Nonunion of fracture | + + | S/P lumbar fusion Arthrodesis status | + + | Synovial cyst of lumbar facet joint Cyst of bone (localized), unspecified | + + | Lumbar radiculopathy Thoracic or lumbosacral neuritis or radiculitis, unspecified | + + | Facet arthropathy, lumbar Lumbosacral spondylosis without myelopathy | + + documented in this encounter
--- OUTSIDE RECORDS SUMMARY | ~2020-07-14 | XMS | Encounter Summary ---
Demographics + + + | Address | [address] | | | [place] [address] | + + + | Home Phone | | + + + | Preferred Language | Unknown | + + + | Marital Status | | + + + | Anabaptism Affiliation | Unknown | + + + | Race | White | + + + | Ethnic Group | Not or | + + + Author + + + | Author | [facility] | | | and [place] | + + + | Organization | [facility] | | | and [...] [place], [place] | | | | | [address] | | + + + + + | Mao Rea | ECON | Unknown | | + + + + + | Meredith Rea | ECON | Unknown | | + + + + + Care Team Providers + +------+ + | Care Tube Carrier Name | Role | Phone | + +------+ + | Brandon Juarez MD | PCP | | + +------+ + Encounter Details +--------+ + + + + | Date | Type | Department | Care Team | Description | +--------+ + + + + | 06/10/ | Abstract | [facility] | Logan Soto, | | | 2013 | | PHYSIATRY [address] | MD [address] | | | | | [address] | [place] | | | | | [place] | [address] | | | | | [address] | | | | | | [phone] | | | +--------+ + + + + Social History + +-------+ +--------+------+ | Tobacco Use | Types | Packs/Day | Years | Date | | | | | Used | | + +-------+ +--------+------+ | Never Assessed | | | | | + +-------+ +--------+------+ + + + | Sex Assigned at | Date Recorded | | | | + + + | Not on file | | + + + documented as of this encounter Plan of Treatment Not on filedocumented as of this encounter Visit Diagnoses Not on filedocumented in this encounter"
--- OUTSIDE RECORDS SUMMARY | ~2020-07-14 | XMS | Encounter Summary ---
Demographics + + + | Address | [address] | | | [place] [address] | + + + | Home Phone | | + + + | Preferred Language | Unknown | + + + | Marital Status | | + + + | Mormonism Affiliation | Unknown | + + + | Race | White | + + + | Ethnic Group | Not or | + + + Author + + + | Author | [facility] | | | and [place] | + + + | Organization | [facility] | | | [...] [place] | | | | | [address] | | + + + + + | Mao Rea | ECON | Unknown | | + + + + + | Meredith Rea | ECON | Unknown | | + + + + + Care Team Providers + +------+ + | Care Structural Steel Worker Helper Name | Role | Phone | + +------+ + | Sherie Vela PA-C | PCP | | + +------+ + Reason for Visit + +--------+ + | Reason | Onset | Comments | | | Date | | + +--------+ + | Appointment | 01/09/ | | | | 2018 | | + +--------+ + Encounter Details +--------+ + + + + | Date | Type | Department | Care Team | Description | +--------+ + + + + | 01/09/ | Telephone | [facility] | Jarvis Dawson S, | Appointment | | 2018 | | NEUROLOGY [place] | MD [place] | | | | | [address] [facility], | [place] [address] | | | | | [address] [place] | [place] | | | | | [place] [address] | [address] | | | | | [phone] | | | +--------+ + + + [...] this encounter Miscellaneous Notes Telephone Encounter - Kandace Pinzon - 01/09/2019 1:15 PM PDTI called the patient to offer a sooner CPAP follow up appointment. The patients Maribell stated Uziel gave back the CPAP to his DME and requested we cancel his CPAP follow up on 01/16/18. The patient is still scheduled for a Parkinsons follow up on 02/07/19. documented in this encounter Plan of Treatment Not on filedocumented as of this encounter Visit Diagnoses Not on filedocumented in this encounter"
--- OUTSIDE RECORDS SUMMARY | ~2020-07-14 | XMS | Encounter Summary ---
Demographics + + + | Address | [address] | | | [place] [address] | + + + | Home Phone [...] + + + | Author | [facility] | | | and [place] | + + + | Organization | [facility] | | [...] [place], [place] | | | | | [address] | | + + + + + | Mao Rea | ECON | Unknown | | + + + + + | Meredith Rea | ECON | Unknown | | + + + + + Care Team Providers + +------+ + | Care Caterpillar Mechanic Name | Role | Phone | + +------+ + | Brandon Juarez MD | PCP | | + +------+ + Reason for Visit + +--------+ + | Reason | Onset | Comments | | | Date | | + +--------+ + | Medication Question | 01/04/ | | | | 2016 | | + +--------+ + Encounter Details +--------+ + + + + | Date | Type | Department | Care Team | Description | +--------+ + + + + | 01/04/ | Telephone | [facility] [place] | Koby George MD | Medication Question | | 2016 | | NEUROSURGERY [address] | [address] | | | | | [address] [facility] [address] | [place] [address] | | | | | [place] | [phone] | | | | | [address] | | | | | | [phone] | | | +--------+ + + + [...] this encounter Miscellaneous Notes Telephone Encounter - Ender Mora PA-C - 01/05/2017 6:31 AM PSTThis medication s hould be fine. Thank you 6 :32 AM PSTTelephone Encounter - Jaquelin Mars RN - 01/04/2017 11:04 AM PSTPatient is sarah eduled 02/23/17 for L5-S1 Transforaminal Lumbar Interbody Fusion, Hardware Revision @ L2-3, L 3-4, L4-5 Reason for call: Patient's spouse called to advise that Dr. Nam, Dispatcher Motor Vehicle, has sta rted patient on new medication and she wanted to confirm whether it is ok to take prior to s urgery and post op. Sulfasalazine 500mg, 4 tablets daily Confirmed medication is not listed on updated medications to stop list and advised patient' s spouse that message will be sent to providers to advise of new medication. We only need t o call her back if providers advise not to take medication before and/ or after surgery. Please advise Shanti mackey Encounter - Jayne Reese - 01/04/2017 10:00 AM PSTPatient's spouse called in stati ng that she has a couple questions regarding his current medications. Please call back to abril Welch signed by Jayne Reese at 01/04/2017 10:03 AM PSTdoparamjit in thi s encounter Plan of Treatment Not on filedocumented as of this encounter Visit Diagnoses Not on filedocumented in this encounter"
--- OUTSIDE RECORDS SUMMARY | ~2020-07-14 | XMS | Encounter Summary ---
Demographics + + + | Address | [address] | | | [place] [address] | + + + | Home Phone | | + + + | Preferred Language | Unknown | + + + | Marital Status | | + + + | Adventism Affiliation | Unknown | + + + | Race | White | + + + | Ethnic Group | Not or | + + + Author + + + | Author | [facility] | | | and [place] | + + + | Organization | [facility] | | | [...] [place] | | | | | [address] | | + + + + + | Mao Rea | ECON | Unknown | | + + + + + | Meredith Rea | ECON | Unknown | | + + + + + Care Team Providers + +------+ + | Care Multimedia Production Assistant Name | Role | Phone | + [...] | | | n | Parkinson's | [facility] | [place] | | | | | disease | MD Milo | Therapy [address] | | | | | ([facility]) [address] | [address] | | | | | Dmitry | [address] | [place], | | | | | ACQUISITION PROFESSIONAL | [place], | [place] [address] | | | | | | [place] [address] | Phone: | | | | | | Phone: | [phone] | | | | | | [phone] | Fax: | | | | | | Fax: | [phone] | | | | | | [phone] | | + +--------+ + + + + Encounter Details +--------+---------+ + + + | Date | Type | Department | Care Team | Description | +--------+---------+ + + + | 06/03/ | Office | [facility] [place] | Winnie Merino, | Cognitive | | 2020 | Visit | [facility] | Speech Pathologist | communication | | | | [address] | | disorder | | | | [place] | | | | | | [address] | | | | | | [phone] | | | +--------+---------+ + + + [...] as of this encounter Progress Notes Winnie Merino, Speech Pathologist - 06/03/2020 4:45 PM PDTFormatting of this note [facility] t be different from the original. [facility] [address] [place] [address] Speech Therapy Daily Treatment Note Date: 06/03/2020 Patient Information Patient Name: Uziel Rea Date of : 1945 Age: 75 y.o. 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 Date of Onset: 04/18/2020 Referring Provider: Murphy Ordaz MD Rehab Precautions Office Visit from 04/18/2020 in [facility] Rehab Precautions Precautions Comments Depression/mental health Hx Rehab Learning Style [facility] Learning Style Patient's [employer] Learning Style reading [written information] Today's Treatment Start Time: 1647 Stop time: 1732 Duration: 45 minutes Timed Treatment Codes: 15 minutes # of Speech Visits to Date: 7 Pain Assessment: Pain Rating Pre Assessment: 7 Subjective: Patient and pt's , Maribell, present for session. Brought memory notebook, an d Ipad. Patient reports continuing to have significant pain, and it is interrupting his slee p. Given new medication to help with pain at night, and reports that is has helped pain at n ight. Objective: With the use of repetition and varied delays, patient was able to recall the 3- step sequence to record, and stop recording to improve functional ability to send e-mails, w ith 03/11 success independently, 07/12 with visual cue, and 12/12 with verbal reminder; using sequence of "microphone, talk, stop" to improve recall of 3-steps. Able to demonstrate recal ling what button not to push when an e-mail is open, until ready to send, with use of spaced retrieval, up to 8 minute delay. Assessment: Continued training needed to independently send e-mails from IPad to improve co mmunication. Goals: Additional ACQUISITION PROFESSIONAL Goals Goal 3: Patient will demonstrate ability to recall a 3 step sequence with the use of spaced retrieval with 8 min delay. Goal 3 Status: In progess, recalled new 3 step sequence with /12 success independently Plan: Assess functional and successful use of memory notebook to initiate tasks with daily schedule,train use of IPad with spaced retrieval to improve communication. Electronically signed by: Winnie Merino Speech Pathologist, 06/03/2020 5:45 PM [facility] Patient Name: Uziel Rea/: 1945[facility] Plan of Treatment Not on filedocumented as of this encounter Visit Diagnoses + + | Diagnosis | + + | Cognitive communication disorder | + + documented in this encounter
--- OUTSIDE RECORDS SUMMARY | ~2020-07-14 | XMS | Encounter Summary ---
Demographics + + + | Address | [address] | | | [place] [address] | + + + | Home Phone | | + + + | Preferred Language | Unknown | + + + | Marital Status | | + + + | Bahai Affiliation | Unknown | + + + | Race | White | + + + | Ethnic Group | Not or | + + + Author + + + | Author | [facility] | | | and [place] | + + + | Organization | [facility] | | | and [...] [place], [place] | | | | | [address] | | + + + + + | Mao Rea | ECON | Unknown | | + + + + + | Meredith Rea | ECON | Unknown | | + + + + + Care Team Providers + +------+ + | Care Sales Review Clerk Name | Role | Phone | [...] | | | lordosis | | [address] | | | | | (acquired) | | [place], | | | | | Other | | [place] [address] | | | | | lordosis | | Phone: | | | | | (acquired) | | [phone] | | | | | Procedures | | Fax: | | | | | [place] | | [phone] | | | | | ARTHRODESIS | [...] + + + + | 12/02/ | Anesthesia | [facility] | Ran Church MD | H/O colon cancer - | | 2015 | Event | [facility] | [address] | 2003 (Primary Dx); | | | | [address] | [place] | Medical marijuana | | | | [place] | [address] | use; Former Tobacco | | | | [address] | | Smoker - quit 1980 | | | | [phone] | | | +--------+ + + + + Anesthesia Record + + + + + | Procedure Name | Responsible | Anesthesia Start | Anesthesia Stop Time | | | Anesthesiologist | Time | | + + + + + | L2-3, L3-4, L4-5 | | 12/02/14 1340 | 12/02/14 1758 | | LAIF, L2-3, L3-4, | | | | | L4-5 Posterior | | | | | Instrumentation, | | | | | L2-3 Decompression | | | | | (N/A Spine Lumbar) | | | | + + + + + +----+---+ + + | Da | T | Event | Comment | | te | i | | | | | m | | | | | e | | | +----+---+ + + | 02 | 1 | | | | /0 | 3 | | | | 2/ | 0 | | | | 20 | 1 | | | | 15 | | | | +----+---+ + + | | 1 | An Checkout | Pre-use anesthesia machine/equipment checkout. | | | 3 | | | | | 1 | | | | | 8 | | | +----+---+ + + | | 1 | An Start | Reassessment prior to anesthesia induction/procedure. | | | 3 | | | | | 4 | | | | | 0 | | | +----+---+ + + | | 1 | Antibiotic | | | | 3 | Given | | | | 4 | | | | | 2 | | | +----+---+ + + | | 1 | Preoxygenat | | | | 3 | ed | | | | 4 | | | | | 5 | | | +----+---+ + + | | 1 | An | | | | 3 | Induction | | | | 4 | | | | | 6 | | | +----+---+ + + | | 1 | An | | | | 3 | Intubation | | | | 5 | | | | | 0 | | | +----+---+ + + | | 1 | Caddo | Upper body blanket | | | 4 | 43-degrees | | | | 0 | | | | | 5 | | | +----+---+ + + | | 1 | Caddo | Lower body blanket | | | 4 | 38-degrees | | | | 0 | | | | | 6 | | | +----+---+ + + | | 1 | an etta now | incision | | | 4 | | | | | 0 | | | | | 6 | | | +----+---+ + + | | 1 | Quick Note | Dr George commenting on higher than usual blood loss. | | | 4 | | | | | 3 | | | | | 5 | | | +----+---+ + + | | 1 | Quick Note | Blood drawn for type and cross | | | 5 | | | | | 2 | | | | | 9 | | | +----+---+ + + | | 1 | an etta now | Incision for prone procedure | | | 6 | | | | | 0 | | | | | 0 | | | +----+---+ + + | | 1 | Caddo off | | | | 7 | | | | | 4 | | | | | 4 | | | +----+---+ + + | | 1 | Breathing | | | | 7 | Spontaneous | | | | 4 | ly | | | | 4 | | | +----+---+ + + | | 1 | Oropharynx | | | | 7 | Suctioned | | | | 4 | | | | | 6 | | | +----+---+ + + | | 1 | An Stop | Patient handed off to recovery nurse. | | | 5 | | | | | 8 | | | +----+---+ + + +------+ | Meds | +------+ + + + | Name | Total | + + + | midazolam | 2 mg | + + + | fentaNYL | 250 mcg | + + + | propofol | 120 mg | + + + | lidocaine 2% | 75 mg | + + + | Phenylephrine 10mg/mL VIAL | 300 mcg | + + + | rocuronium | 5 mg | + + + | ceFAZolin (ANCEF, KEFZOL) 2 g in | 2 g | | sodium chloride 0.9% 50 mL IVPB | | + + + | succinylcholine | 150 mg | + + + | glycopyrrolate | 0.4 mg | + + + | dexamethasone | 10 mg | + + + | ondansetron | 4 mg | + + + | ketamine | 150 mg | + + + | magnesium sulfate | 1 g | + + + | dexmedetomidine (PECEDEX) bolus | 30 mcg | | one step | | + + + | HYDROmorphone | 1.5 mg | + + + | lactated ringers (LR) infusion | 3,700 mL | + + + + + | Name | + + | N2O Flow Rate (L/Min) | + + | O2 Flow Rate (L/Min) | + + | Insp O2 | + + | Exp SEV | + + | Air Flow Rate (L/Min) | + + + + | No blood administrations on file. | + + +--------+ + + + | Type | Details | Placement | Removal | +--------+ + + + | [READ | 12/02/14; 1157; Hematology, | 12/02/14 1157 by | 12/05/14 1023 by | | ONLY] | Chemistry, Coagulation; 12/05/14; | Hasmukh Espinoza RN | Ivis Traore RN | | | 1023 | | | | Periph | | | | | eral | | | | | IV - | | | | | Single | | | | | Lumen | | | | | | | | | +--------+ + + + | Drain/ | 12/02/14; 1707; #1; posterior; | 12/02/14 1707 by | 12/04/14 1300 by | | Device | lumbar spine; [address] | Joseph Titus RN | Ivis Traore RN | | Site | DRAIN; short term use; 12/04/14; | | | | | 1300 | | | +--------+ + + + | Read | 12/02/14; 1708; Left; flank; | 12/02/141707 by | 12/05/14 1021 by | | only - | healing within expectations; | Joseph Titsu RN | Ivis Traore RN | | | 12/05/14; 1021 | | | | Incisi | | | | | on | | | | +--------+ + + + | Read | 12/02/14; 1707; Bilateral; back; | 12/02/141707 by | 12/05/14 1021 by | | only - | healing within expectations; | Joseph Titus RN | Ivis Traore RN | | | 12/05/14; 1021 | | | | Incisi | | | | | on | | | | +--------+ + + + documented in this encounter Social History + + + +--------+ + [...] + + documented as of this encounter [place] Notes Anesthesia Postprocedure Evaluation - Ran Church MD - 12/02/2014 6:35 PM PSTFormattin g of this note might be different from the original. ANESTHESIA POSTANESTHESIA EVALUATION Uziel Silas Rea 69 y.o. male 1945 [id number] Procedure: Procedure(s):L2-3, L3-4, L4-5 LAIF, L2-3, L3-4, L4-5 Posterior Instrumentation, L2-3 Decompression Filed Vitals: 12/02/14 1815 12/02/14 1825 12/02/14 1830 BP: 155/73 152/107 159/84 Pulse: 77 82 80 Temp: Resp: 19 15 13 SpO2: 95% 96% 96% Cooperates? Yes Mental Status Performs simple tasks. Respiratory Satisfactory - Airway patent (self maintained). Cardiovascular Satisfactory Blood pressure and heart rate acceptable Temperature Satisfactory Pain Satisfactory N/V Control Satisfactory Hydration Satisfactory No signs of dehydration Complications None apparent Electronically signed by Ran Church MD 12/02/2014 18:35 [facility] nesthesia Preprocedur e Evaluation - Ran Church MD - 12/02/2014 12:58 PM PST ANESTHESIA PREANESTHESIA EVALUATION Uziel Silas Rea 69 y.o. male 1945 [id number] Scheduled procedure FUSION-LUMBAR DIRECT LATERAL INTERBODY [1834] - L2-3, L3-4, L4-5 LAIF, L2-3, L3-4, L4-5 POSTERIOR INSTRUMENTATION, L2-3 DECOMPRESSION Medical history, anesthesia, medications, allergy histories reviewed. ROS / Med History Pulm Mouth appliance. Physical Exam Airway MP I, TM >3 FB, Mouth opening >2 FB. Neck: full ROM, extends >30 degrees. Jaw protrusi on normal. Dental Grossly normal except where noted below.; CV Rhythm regular. Rate Normal. (-) murmur. Pulm Clear to auscultation bilaterally. Neuro Grossly normal. Anesthesia Plan ASA 2 Type: General. Induction: Intravenous. Potential problems: None anticipated. Monitors: Standard ASA monitors. Consent statement:Anesthetic plan, alternatives, risks and benefits discussed with patient and spouse. Risks discussed included (but were not limited to): sore throat, respiratory events, heart problems, dental injury, . Consenting person understands and agrees to proceed. documented in this enc ounter Plan of Treatment Not on filedocumented as of this encounter Visit Diagnoses Not on filedocumented in this encounter Administered Medications + +--------+ +------+------+------+ | Medication Order | MAR | Action | Dose | Rate | Site | | | Action | Date | | | | + +--------+ +------+------+------+ | ceFAZolin (ANCEF, KEFZOL) 2 g | Given | 12/02/19 | 2 g | | | | in sodium chloride 0.9% 50 mL | | 15 1:42 | | | | | IVPB 2 g, Intravenous, | | PM PST | | | | | Administer over 30 Minutes, Prior | | | | | | | to Incision, Starting 12/02/14 | | | | | | | at 1113, For 1 dose, Administer | | | | | | | within 1 hour of surgical | | | | | | | incision., Pre-op | | | | | | + +--------+ +------+------+------+ +---+---+ | | | +---+---+ + +-------+ +-------+---+---+ | dexamethasone (DECADRON) 10 | Given | 12/02/19 | 10 mg | | | | mg/mL injection Intravenous, | | 15 2:02 | | | | | PRN, Starting Tue12/02/14 at 1402, | | PM PST | | | | | Anesthesia Intra-op | | | | | | + +-------+ +-------+---+---+ +---+---+ | | | +---+---+ + +-------+ +--------+---+---+ | dexmedetomidine (PRECEDEX) in | Given | 12/02/19 | 30 mcg | | | | sodium chloride bolus infusion | | 15 2:53 | | | | | PRN, Starting Tue12/02/14 at 1453, | | PM PST | | | | | Anesthesia Intra-op | | | | | | + +-------+ +--------+---+---+ +---+---+ | | | +---+---+ + +-------+ +--------+---+---+ | fentaNYL injection | Given | 12/02/19 | 50 mcg | | | | Intravenous, PRN, Pain, Starting | | 15 2:31 | | | | | 12/02/14 at 1343, Anesthesia | | PM PST | | | | | Intra-op | | | | | | + +-------+ +--------+---+---+ +-------+ +--------+---+---+ | Given | 12/02/19 | 50 mcg | | | | | 15 2:23 | | | | | | PM PST | | | | +-------+ +--------+---+---+ | Given | 12/02/19 | 50 mcg | | | | | 15 2:09 | | | | | | PM PST | | | | +-------+ +--------+---+---+ +---+---+ | | | +---+---+ + +-------+ +--------+---+---+ | glycopyrrolate (ROBINUL) | Given | 12/02/19 | 0.2 mg | | | | injection Intravenous, PRN, | | 15 3:49 | | | | | Secretions, Starting Mon 2/15 | | PM PST | | | | | at 1400, Anesthesia Intra-op | | | | | | + +-------+ +--------+---+---+ +-------+ +--------+---+---+ | Given | 12/02/19 | 0.2 mg | | | | | 15 2:00 | | | | | | PM PST | | | | +-------+ +--------+---+---+ +---+---+ | | | +---+---+ + +-------+ +--------+---+---+ | HYDROmorphone (PF) (DILAUDID) 2 | Given | 12/02/19 | 0.5 mg | | | | mg/mL injection Intravenous, | | 15 5:29 | | | | | PRN, Pain, Starting Tue12/02/14 at | | PM PST | | | | | 1652, Anesthesia Intra-op | | | | | | + +-------+ +--------+---+---+ +-------+ +--------+---+---+ | Given | 12/02/19 | 0.5 mg | | | | | 15 5:08 | | | | | | PM PST | | | | +-------+ +--------+---+---+ | Given | 12/02/19 | 0.5 mg | | | | | 15 4:52 | | | | | | PM PST | | | | +-------+ +--------+---+---+ +---+---+ | | | +---+---+ + +-------+ +-------+---+---+ | ketamine 50 mg/mL injection | Given | 12/02/19 | 25 mg | | | | PRN, Starting 12/02/14 at 1346, | | 15 4:54 | | | | | Anesthesia Intra-op | | PM PST | | | | + +-------+ +-------+---+---+ +-------+ +-------+---+---+ | Given | 12/02/19 | 25 mg | | | | | 15 3:10 | | | | | | PM PST | | | | +-------+ +-------+---+---+ | Given | 12/02/19 | 25 mg | | | | | 15 2:31 | | | | | | PM [...] +---+---+ + +-------+ +-------+---+---+ | lidocaine (PF) 2% injection | Given | 12/02/19 | 75 mg | | | | Intravenous, PRN, Starting Mon | | 15 1:46 | | | | | 12/02/14 at 1346, Anesthesia | | PM PST | | | | | Intra-op | | | | | | + +-------+ +-------+---+---+ +---+---+ | | | +---+---+ + +-------+ +-----+---+---+ | magnesium sulfate 500 mg/mL | Given | 12/02/19 | 1 g | | | | injection Intravenous, PRN, | | 15 2:47 | | | | | Starting 12/02/14 at 1447, | | PM PST | | | | | Anesthesia Intra-op | | | | | | + +-------+ +-----+---+---+ +---+---+ | | | +---+---+ + +-------+ +------+---+---+ | midazolam (VERSED) 1 mg/mL | Given | 12/02/19 | 2 mg | | | | injection Intravenous, PRN, | | 15 1:38 | | | | | Anxiety, Starting Tue12/02/14 at | | PM PST | | | | | 1338, Anesthesia Intra-op | | | | | | + +-------+ +------+---+---+ +---+---+ | | | +---+---+ + +-------+ +------+---+---+ | ondansetron (ZOFRAN) injection | Given | 12/02/19 | 4 mg | | | | Intravenous, PRN, Nausea, | | 15 2:02 | | | | | Vomiting, Starting Tue12/02/14 at | | PM PST | | | | | 1402, Anesthesia Intra-op | | | | | | + +-------+ +------+---+---+ +---+---+ | | | +---+---+ + +-------+ +---------+---+---+ | phenylephrine (SIMÓN-SYNEPHRINE) | Given | 12/02/19 | 100 mcg | | | | 10 mg/mL injection Intravenous, | | 15 3:49 | | | | | PRN, Starting 12/02/14 at 1355, | | PM PST | | | | | Anesthesia Intra-op | | | | | | + +-------+ +---------+---+---+ +-------+ +---------+---+---+ | Given | 12/02/19 | 100 mcg | | | | | 15 3:34 | | | | | | PM PST | | | | +-------+ +---------+---+---+ | Given | 12/02/19 | 100 mcg | | | | | 15 1:55 | | | | | | PM PST | | | | +-------+ +---------+---+---+ +---+---+ | | | +---+---+ + +-------+ +--------+---+---+ | propofol (DIPRIVAN) injection | Given | 12/02/19 | 120 mg | | | | Intravenous, PRN, Starting Tue | | 15 1:46 | | | | | 12/02/14 at 1346, Anesthesia | | PM PST | | | | | Intra-op | | | | | | + +-------+ +--------+---+---+ +---+---+ | | | +---+---+ + +-------+ +------+---+---+ | rocuronium (ZEMURON) injection | Given | 12/02/19 | 5 mg | | | | Intravenous, PRN, Starting Mon | | 15 1:46 | | | | | 12/02/14 at 1346, Anesthesia | | PM PST | | | | | Intra-op | | | | | | + +-------+ +------+---+---+ +---+---+ | | | +---+---+ + +-------+ +--------+---+---+ | succinylcholine (ANECTINE) | Given | 12/02/19 | 150 mg | | | | injection Intravenous, PRN, | | 15 1:47 | | | | | Starting 12/02/14 at 1347, | | PM PST | | | | | Anesthesia Intra-op | | | | | | + +-------+ +--------+---+---+ +---+---+ | | | +---+---+ documented in this encounter"
--- OUTSIDE RECORDS SUMMARY | ~2020-07-14 | XMS | Encounter Summary ---
Demographics + + + | Address | [address] | | | [place] [address] | + + + | Home Phone | | + + + | Preferred Language | Unknown | + + + | Marital Status | | + + + | Latter Day Affiliation | Unknown | + + + | Race | White | + + + | Ethnic Group | Not or | + + + Author + + + | Author | [facility] | | | and [...] [place] | | | | | [address] | | + + + + + | Mao Rea | ECON | Unknown | | + + + + + | Meredith Rea | ECON | Unknown | | + + + + + Care Team Providers + +------+ + | Care Email Marketing Manager Name | Role | Phone | + [...] + + | Closed | Specialty | Physical | Diagnoses | Morgan, | Logan Soto | | | Services | Medicine and | S/P lumbar | Ender | Carmelita Rios MD [address] | | | Required | Rehabilitatio | fusion | VIRY Ramos | [address] | | | | n | Pseudoarthro | [address] | [place], | | | | | sis of | AVE | [place] [address] | | | | | lumbar spine | [place], [place] | Phone: | | | | | Flat back | [address] | [phone] | | | | | syndrome | Phone: | Fax: | | | | | Lumbar | [phone] | [phone] | | | | | stenosis | Fax: | | | | | | with | [phone] | | | | | | neurogenic | | | | | | | claudication | | | | | | | Lumbar | | | | | | | radiculopath | | | | | | | y | | | | | | | 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 | | | | | | | region | | | +--------+ + + + + + Reason for Visit +---------+ + | Reason | Comments | +---------+ + | Post Op | 12W PO | +---------+ + Encounter Details +--------+---------+ + + + | Date | Type | Department | Care Team | Description | +--------+---------+ + + + | 05/25/ | Office | [facility] | Ender Mora | S/P lumbar fusion | | 2017 | Visit | NEUROSURGERY [address] | [address] | (Primary Dx); | | | | [address] [place], [place] | Pseudoarthrosis of | | | | [place], [place] | [address] | lumbar spine; Flat | | | | [address] | | back syndrome; | | | | [phone] | | Lumbar stenosis with | | | | | | neurogenic | | | | | | claudication; Lumbar | | | | | | radiculopathy; | | | | | | 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 | +--------+---------+ + + + Social History [...] + + + | Blood Pressure | 126/77 | 05/25/2017 9:15 AM | | | | | PDT | | + + + + + | Pulse | 53 | 05/25/2017 9:15 AM | | | | | PDT [...] + + + + | Weight | 90.7 kg (200 lb) | 05/25/2017 9:15 AM | | | | | PDT | | + + + + + | Height | 172.7 cm (5' 8") | 05/25/2017 9:15 AM | | | | | PDT | | + + + + + | Body Mass Index | 30.41 | 05/25/2017 9:15 AM | | | | | PDT [...] documented as of this encounter Progress Notes Ender Mora PA-C - 05/25/2017 9:30 AM PDTFormatting of this note might be differ ent from the original. Ender Mora PA-C [address] [facility] [place] [address] [place] [address] FAX: NEUROSURGERY FOLLOW-UP CHIEF COMPLAINT: Chief Complaint Patient presents with Post Op 12W PO HISTORY OF PRESENT ILLNESS: The patient is a 72 y.o. male that had a L5-S1 Transforaminal Lumbar Interbody Fusion, Hardware Revision @ L2-3, L3-4, L4-5 (Posterior Spine Lumbar) for b ack and left leg pain around 3 months ago. He returns and overall is doing okay. The patie nt complains of lower back pain and swelling. In addition he also describes weakness of the left leg and left knee pain. The patient has been walking 1/4 mile. He continuous with physi akila therapy. He is still taking pain medications at this point. The patient has had no iss ues with his surgical site. The patient states he has not taken rheumatoid arthritis medicat ion for 97 days and would like to start taking his medication again. He would also like to start back on his cannabis. He is working with pain medicine clinic. He asked if he should consider spinal cord stimulator CURRENT MEDICATIONS: Current Outpatient Prescriptions Medication Sig Dispense Refill Ascorbic Acid (VITAMIN C WITH TOM HIPS) 500 MG tablet Take 500 mg by mouth Daily. (Pat ient not taking: Reported on 04/05/2017) Calcium Carbonate-Vit D-Min (CALCIUM 1200 PO) CHEW: Daily Cholecalciferol (VITAMIN D-3) 2000 units CAPS Take 2,000 Units by mouth 2 times daily. clotrimazole (LOTRIMIN) 1% cream Apply topically 2 times daily. cyanocobalamin (VITAMIN B-12) 1000 MCG tablet Take 1,000 mcg by mouth Daily. desonide (DESOWEN) 0.05% cream 2 times daily. DULoxetine (CYMBALTA) [address] capsule Take 20 mg by mouth 2 times daily. fish oil 1,000 mg capsule Take 2,000 mg by mouth 2 times daily. gabapentin (NEURONTIN) 800 MG tablet Take 800 mg by mouth 3 times daily. glucosamine-chondroitin [...] PO Take 1,000 mcg by mouth Daily. methylPREDNISolone (MEDROL DOSEPAK) 4 mg tablet FOLLOW INSTRUCTIONS, TAKE ORALLY TAT (P atient not taking: Reported on 05/25/2017) 21 tablet 0 Misc Natural Products (TURMERIC CURCUMIN) CAPS Take 1 capsule by mouth Daily. Multiple Vitamins-Minerals (A THRU Z ADVANCED) TABS (Patient not taking: Reported on ) omeprazole (PRILOSEC) 20 mg capsule Take 20 mg by mouth 2 times daily. oxyCODONE 10 MG TABS Take 0.5-2 tablets by mouth every 4 hours as needed. 120 tablet 0 propranolol (INDERAL) 20 MG tablet Take 20 mg by mouth 6 times daily. simvastatin (ZOCOR) 40 mg tablet Take 40 mg by mouth Daily. sulfaSALAzine (AZULFIDINE) 500 MG EC tablet Take 500 mg by mouth 3 times daily. Patient taking 3,000 mg daily ziprasidone (GEODON) 80 MG capsule Take 80 mg by mouth 2 times daily (with breakfast & dinner). No current facility-administered medications for this visit. ALLERGIES: No Known Allergies SOCIAL HISTORY: The patient reports that he quit smoking about 36 years ago. His smoking use included Ciga rettes. He has a 40.00 pack-year smoking history. He has never used smokeless tobacco. He re ports that he does not drink alcohol or use drugs. INTERIM PHYSICAL EXAMINATION: Blood pressure 126/77, pulse 53, height 1.727 m (5' 8"), weight 90.7 kg (200 lb). Body mass index is 30.41 kg/m. GENERAL: Uziel Rea is in no acute distress with unlabored respirations. SPINE: The patient s incisions are well healed. EXTREMITIES: No lower extremity edema. NEUROLOGICAL EXAMINATION: MENTAL STATUS: The patient is awake, alert, and oriented. He follows simple and complex commands MOTOR EXAM: Motor strength is stable. SENSORY EXAM: The sensory examination is unchanged when compared to the preoperative exam. REVIEW OF SYSTEMS GENERALLY: No fever, no night sweats, no anemia, no fatigue, no recent profound weight ch anges. EYES: No eye problems, no use of corrective lenses, no eye injury, no double vision, no bl indness. EARS, NOSE, AND THROAT: No changes in taste or smell, no hearing difficulty, no ringing in the ears, no ear drainage, no dizziness, no voice changes, no difficulty swallowing, no sig nificant snoring, no sleep apnea, no sinus problems, no major dental work. NEUROLOGICALLY: Please see the review of systems discussed above in the history of present illness. In addition, the patient has pain in back, tremor/shaking. PSYCHIATRIC: + depression, no sleep disorders, + [...] incontinence. ENDOCRINE: No diabetes, + thyroid disease, + osteopenia or osteoporosis, no breast drainag e. SKIN: No breast lumps, no skin changes, no rashes, no itches. HEMATOLOGIC/LYMPHATIC: No enlarged lymph nodes, no easy or unusual bleeding, no personal h istory of cancer. RHEUMATOLOGIC: + joint arthritis, + rheumatoid arthritis. RADIOGRAPHIC REVIEW: The patient s x-rays show stable instrumentation and alignment and were reviewed with the patient today. Increased bony fusion is noted but it is not complete. ASSESSMENT: Encounter Diagnoses Name Primary? S/P lumbar fusion Yes Pseudoarthrosis of lumbar spine Flat back syndrome Lumbar stenosis with neurogenic claudication Lumbar radiculopathy Spondylolisthesis of lumbar region Past Medical History: Diagnosis Date Anxiety Arthritis rheumatoid Cancer (HCC) 2003 colon cancer Degenerative disc disease, lumbar Depression Hard of hearing bilateral hearing aids Hypothyroid Lumbar radiculopathy Rheumatoid arthritis (HCC) Sleep apnea no CPAP Tremor PLAN: Overall, the patient is doing okay. The patient can now stand for a longer period of time . I increased the patient s activities now allowing 15 pound lifting. He should pay attent ion to body mechanics while lifting. The patient should increase range of motion activitie s as tolerated. They should continue regular exercise and strengthening with the hope that they can avoid additional surgery. The patient will slowly and deliberately increase his ac tivities with walking. We will be placing a referral to Dr. Jiménez. The patient should contact his flatwork feeder to discuss starting his rheumatoid arthriti s medication. He will discuss the addition of cannabis to his pain management with his primary care provi marquise as well as pain medicine provider. The patient will discuss pain medication with pain managment. The patient needs to follow-up in 3 months with x-rays for re-evaluation. ELECTRONICALLY SIGNED BY: Ender Mora PA-C, 05/25/2017 9:58 I, Ender Mora PA-C, personally performed the services described in this documentation , as scribed by Giuliana Kebede CMA in my presence, and it is both accurate and complete. Ender Mora PA-C 05/25/2017 documented in this encounter Plan of Treatment + +---------+--------+ + + | Name | Type | Priori | Associated Diagnoses | Order Schedule | | | | ty | | | + +---------+--------+ + + | XR Lumbar Spine 2 or | Imaging | Routin | S/P lumbar fusion | Expected: 08/23/2017 | | 3 Vw | | e | Pseudoarthrosis of | (Approximate), | | | | | lumbar spine Flat | Expires: 05/24/2018 | | | | | back syndrome | | | | | | Lumbar stenosis with | | | | | | neurogenic | | | | | | claudication Lumbar | | | | | | radiculopathy | | | | | | 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 | | + +---------+--------+ + + documented as of this encounter Procedures + +--------+ + + + | Procedure Name | Priori | Date/Time | Associated Diagnosis | Comments | | | ty | | | | + +--------+ + + + | AMB REFERRAL TO | Routin | 06/01/2017 | S/P lumbar fusion | | | PHYSICAL MEDICINE | e | 11:50 AM | Pseudoarthrosis of | | | REHAB | | PDT | lumbar spine Flat | | | | | | back syndrome | | | | | | Lumbar stenosis with | | | | | | neurogenic | | | | | | claudication Lumbar | | | | | | radiculopathy | | | | | | 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 | | + +--------+ + + + documented in this encounter Visit Diagnoses + + | Diagnosis | + + | S/P lumbar fusion - Primary Arthrodesis status | + + | 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
--- OUTSIDE RECORDS SUMMARY | ~2020-07-14 | XMS | Encounter Summary ---
Demographics + + + | Address | [address] | | | [place] [address] | + + + | Home Phone | | + + + | Preferred Language | Unknown | + + + | Marital Status | | + + + | Lutheran Affiliation | Unknown | + + + | Race | White | + + + | Ethnic Group | Not or | + + + Author + + + | Author | [facility] | | | and [place] | + + + | Organization | [facility] | | | [...] [place] | | | | | [address] | | + + + + + | Mao Rea | ECON | Unknown | | + + + + + | Meredith Rea | ECON | Unknown | | + + + + + Care Team Providers + +------+ + | Care Wood Shop Teacher Name | Role | Phone | + +------+ + | Sherie Vela PA-C | PCP | | + +------+ + Reason for Visit + +--------+ + | Reason | Onset | Comments | | | Date | | + +--------+ + | Medication Refill | 04/21/ | | | | 2016 | | + +--------+ + | Medication Prior | 04/21/ | | | Authorization | 2016 | | + +--------+ + Encounter Details +--------+--------+ + + + | Date | Type | Department | Care Team | Description | +--------+--------+ + + + | 04/21/ | Refill | [facility] | Koby George MD | Medication Refill; | | 2016 | | NEUROSURGERY [address] | [address] | Medication Prior | | | | [address] | [place] [address] | Authorization | | | | TANIA Paz | [phone] | | | | | [phone] | | | | | | [phone] | | | +--------+--------+ + + + Social History + + [...] Telephone Encounter - Jaquelin Mars RN - 04/27/2017 2:35 PM PDTConfirmed approval on [facility] with patient's spouse.Electronically signed by Jaquelin Mars RN at 2:37 PM PDTTelephone Encounter - Jaquelin Mars RN - 04/26/2017 12:01 PM PDTPrior to P A, insurance approved 180 tablets for 30 days. Need exception to allow 300 tablets for 30 days (max 10/day) #120 for 12 days. Routing back to authorization team to request exception as noted elephone Encounter - Jaquelin Mars RN - 4:26 PM PDT Note DENIED REFILL TOO SOON New - Scheduling Minimum Data Set | Provider Notes: | Payer: [facility] | Subscriber Name: Self | | Auth ID: DENIED REFILL TOO SOON | CPT Provided? OXYCODONE 10 MG TAB | Dx Code Provided? Yes | Additional Contact Info: PER CALL TO [facility] DEPT @ [phone] SPOKE TO LEONIE Calhoun ADVISED REASON RX WAS NOT FILLED WAS DUE TO REFILL TOO SOON. PER LEONIE ON 04/15/2017 [facility] FILL OXYCODONE 10 MG TABLETS QUANITY 120 TABLETS FOR 20 DAY SUPPLY. SENDING INARLEEN [place] TO CLINICAL STAFF TO ADVISE. Ninfa Eli Rubio DATE/TIME: 04/25/17 1142 Called [facility] to clarify. The issue is insurance limits to 180 tablets per 30 days . Need exception to allow refill at 12 days on current order (max 10/day) Routing back to authorization team to request exception on quantity cap. elephone Encounter - Jaquelin Mars RN - 04/25/2017 10:31 AM PDTReferral entered for urgent medication prior authorization. Routed to authorization team to initiate and to update pharmacy/ patient wi th approval. elephone Encounter - Karolina Nj - 04/25/2017 9:52 AM PDTPharmacy tech called to let us know th at they sent us a prior auth form to fill out. The insurance company is only allowing 6 tabs per day of the 10mg tabs and the patient is taking 2 tabs at a time. They are suggesting co nsidering adjusting the dose to 20 mg instead. Electronically signed by Karolina Nj at 9:59 AM PDTTelephone Airam - Regi Medina - 04/22/2017 10:24 AM PDTPatie nt's , Henny, came in and picked up her 's prescription with a valid [place] DL.Electr onically signed by Regi Medina at 04/22/2017 10:25 AM PDTTelephone Encounter - Jaquelin Mars RN - 04/21/2017 2:20 PM PDTNotified Henny (spouse) Rx approved. Henny requested Rx be left at front end java developer for apple picking supervisor during clinic hours tomorrow (confirmed clinic hours)E lectronically signed by Jaquelin Mars RN at 04/21/2017 2:22 PM PDTTelephone Encounter - Ender Mora PA-C - 04/21/2017 1:35 PM PDTapproved elephone Encounter - Jaquelin Mars RN - 12:00 PM PDTMedication Refill Request Procedure: L5-S1 Transforaminal Lumbar Interbody Fusion, Hardware Revision @ L2-3, L3-4, L 4-5 Date of Surgery: 02/23/2017 Date of Next Office Visit: 05/25/2017 Medication requested: Oxycodone 10 mg Do you have a pain contract with any providers: On hold with pain clinic for 90 day post o p period; advised patient to schedule appointment to discuss resuming management in advance of next appointment. Are you receiving pain medication prescriptions from any other providers: No Current intake: 2 tablets every 4 hours Date of last refill: 04/15/2017 # of tabs left/or when will patient run out of this medication: Will be out Tuesday Where is pain located? Type of pain (constant, intermittent, sharp, dull)? : Between hip a nd knee on left side; new flare of pain from PT and advancing walking (see related encounter 04/21/17) Send in the mail or call in to preferred pharmacy? [facility] (will confirm with c all back when approved) Please approve/ deny Rx. documented in this e ncounter Plan of Treatment Not on filedocumented as of this encounter Visit Diagnoses + + | Diagnosis | + + | S/P lumbar fusion Arthrodesis status | + + documented in this encounter"
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
--- OUTSIDE RECORDS SUMMARY | ~2020-07-14 | XMS | Encounter Summary ---
Demographics + + + | Address | [address] | | | [place] [address] | + + + | Home Phone | | + + + | Preferred Language | Unknown | + + + | Marital Status | | + + + | Nondenominational Affiliation | Unknown | + + + | Race | White | + + + | Ethnic Group | Not or | + + + Author + + + | Author | [facility] | | | and [...] [place] | | | | | [id number] | | + + + + + | Mao Rea | ECON | Unknown | | + + + + + | Meredith Rea | ECON | Unknown | | + + + + + Care Team Providers + +------+ + | Care Ocean Import Representative Name | Role | Phone | + [...] | Specialty | Neurology | Diagnoses | Samir, | Samir, | | | Services | | Obstructive | Jarvis Qiu, | Jarvis Qiu MD | | | Required | | sleep apnea | 19 | 19 | | | | | of adult | [place] | | | | | | [place] [address] [place] [address] | | | | | | [address] | | | | | | [place] | [place] | | | | | | [address] | [address] Phone: | | | | | | Phone: | [phone] | | | | | | [phone] | Fax: | | | | | | Fax: | [phone] | | | | | | [phone] | | +--------+ + + + + + Reason for Visit + +--------+ + | Reason | Onset | Comments | | | Date | | + +--------+ + | Appointment Question | 08/21/ | | | | 2017 | | + +--------+ + Encounter Details +--------+ + + + + | Date | Type | Department | Care Team | Description | +--------+ + + + + | 08/21/ | Telephone | [facility] [place] | Jarvis Dawson, | Appointment Question | 2017 | | NEUROLOGY [place] | MD Shavon [address] | | | | | [address], | [place] [address] | | | | | [address] [place] | [place] | | | | | [place] [address] | [address] | | | | | [phone] | | | +--------+ + + + [...] this encounter Miscellaneous Notes Telephone Encounter - Palma Silva RN - 08/22/2018 11:26 AM PDTReceived [facility] and copy given to Dr. Dawson for review. Referral placed to see Dr. Collin talamantes for Established Patient, New Problem (LEANDRO). elephone Encounter - Palma Silva RN - 08/22/2018 9: [address] Dawson's request, all records from [facility] are being requested to be se nt to our office. Once reviewed he will decided if Uziel should be seen here for sleep follow up. This request was sent to the Sleep Lab as well. elephone Encounter - Rebel-Dena Birmingham - 8 11:52 AM PDTPatient is seen at [facility] in [place] by Dr. Dawson for Sleep, but em ve not been able to schedule desensitization appointments or follow up with Dr. Dawson per hi s recommendation. Please advise.Electronically signed by Dena Dejesus at 2017 11:57 AM PDTdocumented in this encounter Plan of Treatment + + +--------+ + + | Name | Type | Priori | Associated Diagnoses | Order Schedule | | | | ty | | | + + +--------+ + + | * [facility] [place]patient | Routin | Obstructive sleep | Ordered: 08/22/2018 | | Neurology/Sleep | Referral | e | apnea of adult | | | [facility] | | | | | | Transfer | | | | | + + +--------+ + + documented as of this encounter Visit Diagnoses + + | Diagnosis | + + | Obstructive sleep apnea of adult - Primary Obstructive sleep apnea (adult) | | (pediatric) | + + documented in this encounter"
--- OUTSIDE RECORDS SUMMARY | ~2020-07-14 | XMS | Encounter Summary ---
Demographics + + + | Address | [address] | | | [place] [address] | + + + | Home Phone | | + + + | Preferred Language | Unknown | + + + | Marital Status | | + + + | Adventist Affiliation | Unknown | + + + | Race | White | + + + | Ethnic Group | Not or | + + + Author + + + | Author | [facility] | | | and [place] | + + + | Organization | [facility] | | | [...] [place] | | | | | [address] | | + + + + + | Mao Rea | ECON | Unknown | | + + + + + | Meredith Rea | ECON | Unknown | | + + + + + Care Team Providers + +------+ + | Care Shade Cloth Finisher Name | Role | Phone | + +------+ + | Sherie Vela PA-C | ENA | | + +------+ + Encounter Details +--------+ + + + + | Date | Type | Department | Care Team | Description | +--------+ + + + + | 07/24/ | Orders Only | [facility] [place] | Luis Carlos Jiménez | Lumbar radiculopathy | | 2018 | | PHYSIATRY [address] | [address] | (Primary Dx) | | | | [address] | [address] [place] | | | | | [place] | [address] | | | | | [address] | | | | | | [phone] | | | +--------+ + + + [...] on filedocumented as of this encounter Results [place] KELLY Lumbar Transforaminal [...] radiculitis, | | unspecified | + + documented in this encounter"
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
--- OUTSIDE RECORDS SUMMARY | ~2020-07-14 | XMS | Encounter Summary ---
Demographics + + + | Address | [address] | | | [place] [address] | + + + | Home Phone | | + + + | Preferred Language | Unknown | + + + | Marital Status | | + + + | Hindu Affiliation | Unknown | + + + | Race | White | + + + | Ethnic Group | Not or | + + + Author + + + | Author | [facility] | | | and [place] | + + + | Organization | [facility] | | | [...] [place] | | | | | [address] | | + + + + + | Mao Rea | ECON | Unknown | | + + + + + | Meredith Rea | ECON | Unknown | | + + + + + Care Team Providers + +------+ + | Care Special Procedures Nurse Name | Role | Phone | + [...] | | | n | Parkinson's | [facility] | [facility] | | | | | disease | MD Milo | Therapy [address] | | | | | ([facility]) G20 | [address] | | | | | Dmitry | [address] | [place], | | | | | FOOD CASHIER | [place], | [place] [address] | | | | | | [place] [address] | Phone: | | | | | | Phone: | [phone] | | | | | | [phone] | Fax: | | | | | | Fax: | [phone] | | | | | | [phone] | | + +--------+ + + + + Encounter Details +--------+---------+ + + + | Date | Type | Department | Care Team | Description | +--------+---------+ + + + | 06/24/ | Office | [facility] | Winnie Merino, | Cognitive | | 2020 | Visit | [facility] | Speech Pathologist | communication | | | | [address] | | disorder | | | | [place] | | | | | | [address] | | | | | | [phone] | | | +--------+---------+ + + + [...] Progress Notes Winnie Merino, Speech Pathologist - 06/24/2020 12:45 PM PDTFormatting of this note mig t be different from the original. [facility] [address] [facility] [address] [facility] [address] [facility] [address] Speech Therapy Progress Assessment Date: 06/24/2020 Patient Information Patient Name: Uziel Rea Date of : 1945 Age: 75 y.o. History 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 Date of Onset: 04/18/2020 Referring Provider: Murphy Ordaz MD Rehab Precautions [facility] Rehab Precautions Precautions Comments Depression/mental health Hx Rehab Learning Style Office Visit from 04/18/2020 [facility] Learning Style Patient's [employer] Learning Style reading [written information] Subjective Uziel has completed 10 for treatment of cognitive-communication impairments. Annika ent reports improvements with overall cognitive function, task initiation, new learning, and communication. However continues to report difficulty with new learning with cell phone to improve communication. Patient and pt's , Maribell, present for session. Brought memory not ebook, and Ipad. MRI scheduled for 06/30, with apt to discuss results jul 04. Patient and p t's agree that cognitively patient had made significant improvements and communication between the two of them has much improved. Ordered new Iphone. Pain Assessment: Pain Rating Pre Assessment: 4 Location: lower back Pain/Comfort Presence Of Pain: complains of pain/discomfort Objective: With the use of repetition and varied delays, patient was able to recall the se quence to use iphone to add new contact and to place a phone call with intermittent verbal c ues needed. Patient benefits from written directions and using spaced retrieval for new lear zuly. Assessment Patient presents to speech therapy with complaints of difficulty with memory and communic ation . Patient reports that his cognitive impairments impact communication abilities and ca use high frustration. Objective exam reveals impairments with moderate to severely impaired immediate memory, attention, and delayed recall. These impairments and diagnosis are causing functional limitations with patient's inability to functionally communicate, impact quality of daily life, and affecting participation in day to day routines. Signs and symptoms are c onsistent with Parkinson's. Complexities contributing to frequency and duration of therapy: depression. Significant functional improvement with memory, thought organization, task initiation, and communication with use of external systems. Rehabilitation potential: Patient demonstrates excellent potential to achieve established g oals to address the documented impairments by participating in skilled speech and language t herapy services. Goals: Additional FOOD CASHIER Goals Goal 1: Pt will demonstrate understanding and use of memory notebook to improve recall, and communication Goal 1 Status: Goal Met Goal 2: Patients will verbalize understanding of functional use of memory notebook and how to assist patient with use to improve communication and recall. Goal 2 Status: MET Goal 3: Patient will demonstrate ability to recall a 3 step sequence with the use of spaced retrieval with 8 min delay. Goal 3 Status: Goal met with 5/5 success Goal 4: Patient will independently recall steps to send email to improve communication with written notes as needed. Goal 4 Status: Met Goal 5: Patient will demonstrate functional use of phone to make phone calls and send e-reg ls independently in 8 of 10 given opportunities. Goal 5 Status: In progress Plan Date of Onset: 04/18/2020 Start of Care Date: 04/18/2020 Requested # of Visits: 13 visits 1x/week for 1xweek for 13 weeks Certification From: 04/18/2020 Certification To: 07/17/2020 Treatment Plan/Interventions 53659 - Cognitive Gsorpsp25499/74097 Interventions for Cog Fxn Patient and/or family has indicated understanding of treatment needs and actively participa david in the creation of this plan for care. Today's Treatment Start Time: 1245 Stop time: 1329 Duration: 44 minutes Timed Treatment Codes: 0 minutes # of Speech Visits to Date: 10 Objective:Continued training needed to independently send e-mails and make phone calls from phone. Improved overall communication and cognitive function with new learning related to i mproved communication. Next Visit: train use of IPhone with spaced retrieval to improve communication. Electronically signed by: Winnie Merino Speech Pathologist, 06/24/2020 2:00 PM PDT Patient Name: Uziel Rea/: 1945/ doc umented in this encounter Plan of Treatment Not on filedocumented as of this encounter Visit Diagnoses + + | Diagnosis | + + | Cognitive communication disorder | + + documented in this encounter"
--- OUTSIDE RECORDS SUMMARY | ~2020-07-14 | XMS | Encounter Summary ---
Demographics + + + | Address | [address] | | | [place] [address] | + + + | Home Phone | | + + + | Preferred Language | Unknown | + + + | Marital Status | | + + + | Roman Catholic Affiliation | Unknown | + + + | Race | White | + + + | Ethnic Group | Not or | + + + Author + + + | Author | [facility] | | | and [place] | + + + | Organization | [facility] | | [...] [place] | | | | | [address] | | + + + + + | Mao Rea | ECON | Unknown | | + + + + + | Meredith Rea | ECON | Unknown | | + + + + + Care Team Providers + +------+ + | Care Side Seam Envelope Machine Operator Name | Role | Phone | + +------+ + | Sherie Vela PA-C | PCP | | + +------+ + Reason for Visit + +--------+ + | Reason | Onset | Comments | | | Date | | + +--------+ + | Procedure | 12/10/ | | | | 2016 | | + +--------+ + Encounter Details +--------+ + + + + | Date | Type | Department | Care Team | Description | +--------+ + + + + | 12/10/ | Telephone | [facility] | Koby George MD | Procedure | | 2016 | | NEUROSURGERY [address] | [address] | | | | | [facility] [address] | [place] [address] | | | | | [place] | [phone] | | | | | [address] | | | | | | [phone] | | | +--------+ + + + [...] Notes Telephone Encounter - Emily Padilla - 12/10/2016 10:46 AM PSTSurgery scheduled 7 Additional procedure information added by Dr. George to the original authorization request. Additional procedures: L2-3, L3-4, L4-5 hardware revision. Additional CPT's added: 12023 x 3 41043 x 3 12861 x 2 Case episode pre-auth form updated & [place] booking request. documented in this encounter Plan of Treatment Not on filedocumented as of this encounter Visit Diagnoses Not on filedocumented in this encounter"
--- OUTSIDE RECORDS SUMMARY | ~2020-07-14 | XMS | Encounter Summary ---
Demographics + + + | Address | [address] | | | [place] [address] | + + + | Home Phone | | + + + | Preferred Language | Unknown | + + + | Marital Status | | + + + | Jain Affiliation | Unknown | + + + | Race | White | + + + | Ethnic Group | Not or | + + + Author + + + | Author | [facility] | | | and [place] | + + + | Organization | [facility] | | [...] [place], [place] | | | | | [address] | | + + + + + | Mao Rea | ECON | Unknown | | + + + + + | Meredith Rea | ECON | Unknown | | + + + + + Care Team Providers + +------+ + | Care Credit Products Officer Name | Role | Phone | + +------+ + | Brandon Juarez MD | PCP | | + +------+ + Reason for Visit + +--------+ + | Reason | Onset | Comments | | | Date | | + +--------+ + | Results, Imaging | 06/26/ | | | | 2013 | | + +--------+ + Encounter Details +--------+ + + + + | Date | Type | Department | Care Team | Description | +--------+ + + + + | 06/26/ | Telephone | [facility] | Logan Soto, | Results, Imaging | | 2013 | | PHYSIATRY [address] | [address] | | | | | [address] | [place] | | | | | [place] | [address] | | | | | [address] | | | | | | [phone] | | | +--------+ + + + [...] this encounter Miscellaneous Notes Telephone Encounter - Logan Soto MD - 06/26/2014 4:24 PM PDTReviewed the results of his lumbar MRI with him on the phone. Advised him that if he had profound weakness, loss of bowel or bladder control to go to the ED. Discussed that [facility]. Discussed that surgical treatment may be a consideration.Electronica veritoy signed by Logan Soto MD at 06/26/2014 4:25 PM PDTdocumented in this encounter Plan of Treatment Not on filedocumented as of this encounter Visit Diagnoses Not on filedocumented in this encounter"
--- OUTSIDE RECORDS SUMMARY | ~2020-07-14 | XMS | Encounter Summary ---
Demographics + + + | Address | [address] | | | [place] [address] | + + + | Home Phone | | + + + | Preferred Language | Unknown | + + + | Marital Status | | + + + | Bahai Affiliation | Unknown | + + + | Race | White | + + + | Ethnic Group | Not or | + + + Author + + + | Author | [facility] | | | and [place] | + + + | Organization | [facility] | | | [...] [place], [place] | | | | | [address] | | + + + + + | Mao Rea | ECON | Unknown | | + + + + + | Meredith Rea | ECON | Unknown | | + + + + + Care Team Providers + +------+ + | Care Prefitter Doors Name | Role | Phone | + +------+ + | Brandon Juarez MD | PCP | | + +------+ + Reason for Visit + + + | Reason | Comments | + + + | Back Pain | | + + + | Leg Pain | left | + + + | Numbness | left foot and calf | + + + Encounter Details +--------+---------+ + + + | Date | Type | Department | Care Team | Description | +--------+---------+ + + + | 06/30/ | Office | [facility] | Logan Sands, | Chronic left-sided | | 2016 | Visit | PHYSIATRY [address] | [address] | low back pain with | | | | [address] | [place] | left-sided sciatica | | | | [place] | [address] | (Primary Dx); Lumbar | | | | [address] | | radiculopathy; Left | | | | [phone] | | leg pain; Left leg | | | | | | weakness; Numbness | | | | | | of left foot; | | | | | | History of lumbar | | | | | | fusion; Lumbar | | | | | | spinal stenosis | +--------+---------+ + + + Social History [...] + + + | Blood Pressure | 138/81 | 06/30/2016 10:30 AM | | | | | PDT | | + + + + + | Pulse | 66 | 06/30/2016 10:30 AM | | | | | PDT | | + + + + + | Temperature | - | - | | + + + + + | Respiratory Rate | 18 | 06/30/2016 10:30 AM | | | | | PDT | | + + + + + | Oxygen Saturation | - | - | | + + + + + | Inhaled Oxygen | - | - | | | Concentration | | | | + + + + + | Weight | 93 kg (205 lb) | 06/30/2016 10:30 AM | | | | | PDT | | + + + + + | Height | 175.3 cm (5' 9") | 06/30/2016 10:30 AM | | | | | PDT | | + + + + + | Body Mass Index | 30.27 | 06/30/2016 10:30 AM | | | | | PDT [...] of this encounter Patient Instructions Patient Instructions Logan Sands MD - 06/30/2016 10:56 AM PDTPlease attend the injecti on appointment with Luis Carlos Jiménez MD. If his office has not contacted you within one we k, to schedule the injection, please contact my clinic. Your injection will be performed at [facility]. Please take note of weather your pain is si gnificantly reduced in the hours immediately following the injection. Return to the clinic approximately 2 weeks after your injection review response to injectio n. If your symptoms persist after injection we will likely request surgical consultation.Elect ronically signed by Logan Sands MD at 06/30/2016 10:57 AM PDT documented in this encounter Progress Notes Logan Sands MD - 06/30/2016 11:12 AM PDT [facility] PH[facility]SIATRY [address] [facility] [address] OFFICE NOTE LOGAN SANDS JR, MD Patient: RACHEL REA Admitting: MR #: [id number] LOC: PT TYPE: Adm Date: 06/30/2016 : 1945 PHYSICAL MEDICINE REHABILITATION PROGRESS NOTE DATE OF : 1945 PRIMARY CARE PROVIDER: Brandon Juarez MD DATE: 06/30/2016 PATIENT IDENTIFICATION: A 71-year-old male with left low back pain radiating into left lo wer extremity. History of previous lumbar fusion L2 through L5. HISTORY OF PRESENT ILLNESS: He has had prior lumbar fusion. After surgery he felt very we ll. Around 6 months ago he developed left back pain radiating into the leg. When he was l ast seen, it was felt that he had L5 radiculopathy. Lumbar MRI was requested. Reported current pain level is 7/10 . Pain is constant in timing. Pain is in the left lo w back, radiates to left lower extremity. Pain travels over the left thigh, left posterior calf. Reports numbness and paresthesia in the posterior calf and all the toes of the left foot. Denies numbness and paresthesia in the right lower extremity. Currently, he denies weakness in the left leg. Reports that the strength Left leg may not be as good as the ri ght leg but overall he finds that he can ignore weakness and is mostly bothered by pain. He has had physical therapy. He denies incontinence of bowel or bladder. He denies saddle an esthesia. ALLERGIES: NO KNOWN DRUG ALLERGIES. CURRENT MEDICATIONS: Vitamin C with bebeto hips once daily. Calcium carbonate vitamin D Arthrotec 1 tablet daily Cymbalta 30 mg twice daily. Gabapentin 800 mg 3 times per day. Arava 10 mg most days Synthroid 75 mcg every morning. Medical marijuana 1-5 puffs twice daily as needed. Methotrexate weekly Multivitamin with minerals once daily. Omeprazole 20 mg daily. Zocor 40 mg daily. Sulfasalazine 1500 mg daily. Xeljanz XR 11 mg daily. REVIEW OF SYSTEMS: Denies nausea, vomiting, diarrhea, constipation, fever, chills, shortne ss of breath, chest pain. He denies denies skin break down or rash. He denies lymph gland swelling of weight loss. Denies incontinence of bowel or bladder. PHYSICAL EXAMINATION: VITAL SIGNS: Heart rate 66 Respiratory Rate 16 Blood Pressure 138/81 Weight 205 lbs. He ight 5'9" BACK: Lumbar fusion surical scarring. Tenderness palpation over left mid and left lateral low back. Tenderness to left buttock over the sciatic nerve. EXTREMITIES: Exam reveals n o clubbing, cyanosis or edema in all four extremities NEUROLOGIC: Decrease sensation to monofilament testing in L5-S1 dermatome. Reflexes 2+ sy mmetric over the patella and Achilles bilaterally. Seated straight leg raise positive on the left. Motor exam demonstrates 4/5 ankle dorsiflexion on the left compared to 5/5 on the r ight. There is 4/5 knee flexion on the left compared to 5/5 on the right. 5/5 hip flexion bilaterally. DIAGNOSTIC DATA: Lumbar MRI from 06/23/2016 personally reviewed by me and I concur with tab schmidt reported by the radiologist. Imaging demonstrates prior lumbar fusion with multileve l neural foraminal narrowing affecting all levels of the back. There is moderate neural f oraminal narrowing at L5-S1 bilaterally. There is some central canal stenosis at L4-5. Th ere is some clumping of the cauda equina fibers at L3-4. There is spondylosis impacting th e cauda equina nerve root fibers at L1-2. ASSESSMENT: 1. Chronic left-sided low back pain with left-sided sciatica 2. Left L5 radiculopathy 3. Left leg weakness 4. Left leg numbness Mr. Rea's clinical presentation is most left L5 radiculopathy. He has some neural fora christi narrowing at this level. He also has persisting spinal stenosis at cephalad levels. He has tried and failed conservative measures of medication for neuropathic pain, physical therapy, his pain interferes with activities of daily living, and he has weakness of the le ft leg. At this time, I am requesting diagnostic and potentially therapeutic trans-foramina l epidural steroid injection at left L5-S1 in hopes of reducing symptoms . It may also redu frandy symptoms from central canal stenosis. He will return to my clinic in approximately 6-8 weeks to review the results of steroid injection under Dr. Jiménez. If Mr. Rea has p ersisting symptoms without benefit we may consider lumbar x-rays with flexion and extension views to evaluate for instability at L5-S1 and neurosurgical consultation. LOGAN SANDS JR, MD Dictated by LOGAN SANDS JR, MD 06/30/2016 11:12:53 Transcribed on 07/01/2016 00:00:39 by helder job# [id number] Confirmation #: [id number] cc: BRANDON JUAREZ MD Logan Sands MD - 06/30/2016 10:57 AM PDTThis office note has been dictated. Report Confirmation# [id number] signed by Logan Sands MD at 06/30/2016 11:13 AM PDTdocumented in this encounter Plan of Treatment Not on filedocumented as of this encounter Visit Diagnoses + + | Diagnosis | + + | Chronic left-sided low back pain with left-sided sciatica - Primary | + + | Lumbar radiculopathy Thoracic or lumbosacral neuritis or radiculitis, unspecified | + + | Left leg pain Pain in limb | + + | Left leg weakness Other musculoskeletal symptoms referable to limbs | + + | Numbness of left foot | + + | History of lumbar fusion | + + | Lumbar spinal stenosis Spinal stenosis, lumbar region, without neurogenic | | claudication | + + documented in this encounter
--- OUTSIDE RECORDS SUMMARY | ~2020-07-14 | XMS | Encounter Summary ---
Demographics + + + | Address | [address] | | | [place] [address] | + + + | Home Phone [...] + + + | Author | [facility] | | | and [place] | + + + | Organization | [facility] | | [...] [place], [place] | | | | | [address] | | + + + + + | Mao Rea | ECON | Unknown | | + + + + + | Meredith Rea | ECON | Unknown | | + + + + + Care Team Providers + +------+ + | Care Automotive Collision Estimator Name | Role | Phone | + +------+ + | Brandon Juarez MD | PCP | | + +------+ + Reason for Visit Auth/Cert +--------+--------+ + + + + | Status | Reason | Specialty | Diagnoses / | Referred By | Referred To | | | | | Procedures | Contact | Contact | +--------+--------+ + + + + | | | | Diagnoses | | | | | | | Lumbar | | | | | | | radiculopath | | | | | | | y (M54.16), | | | | | | | Degenerative | | | | | | | disc | | | | | | | disease, | | | | | | | lumbar | | | | | | | (M51.36), | | | | | | | Lumbar | | | | | | | stenosis | | | | | | | with | | | | | | | neurogenic | | | | | | | claudication | | | | | | | (M48.06), | | | | | | | Foraminal | | | | | | | stenosis of | | | | | | | lumbar | | | | | | | region | | | | | | | (M99.83), | | | | | | | 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 | | | | | | | region | | | | | | | (M43.16), | | | | | | | Facet | | | | | | | arthropathy, | | | | | | | lumbar | | | | | | | (M12.88) , | | | | | | | S/P lumbar | | | | | | | fusion | | | | | | | (Z98.1), | | | | | | | 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 | | | | | | | (S32.009K), | | | | | | | Synovial | | | | | | | cyst of | | | | | | | lumbar facet | | | | | | | joint | | | | | | | (M71.38) | | | | | | | Procedures | | | | | | | OR ARTHDSIS | | | | | | | POST/POSTERO | | | | | | | LATRL/POSTIN | | | | | | | TERBODY | | | | | | | LUMBAR | | | | | | | POSTERIOR | | | | | | | NON-SEGMENTA | | | | | | | L | | | | | | | INSTRUMENTAT | | | | | | | ION OR INSJ | | | | | | | BIOMCHN DEV | | | | | | | | | | | | | | INTERVERTEBR | | | | | | | AL DSC SPC | | | | | | | W/ARTHRD | | | | | | | LAMINEC/FACE | | | | | | | TECT/FORAMIN | | | | | | | ,LUMBAR 1 | | | | | | | SEG OR | | | | | | | ALLOGRAFT | | | | | | | FOR SPINE | | | | | | | SURGERY ONLY | | | | | | | MORSELIZED | | | | | | | OR REINSERT | | | | | | | SPINAL | | | | | | | FIXATION OR | | | | | | | REINSERT | | | | | | | SPINAL | | | | | | | FIXATION OR | | | | | | | REINSERT | | | | | | | SPINAL | | | | | | | FIXATION OR | | | | | | | INSJ | | | | | | | BIOMCHN DEV | | | | | | | INTERVERTEBR | | | | | | | AL DSC SPC | | | | | | | W/ARTHRD OR | | | | | | | INSJ | | | | | | | BIOMCHN DEV | | | | | | | INTERVERTEBR | | | | | | | AL DSC SPC | | | | | | | W/ARTHRD OR | | | | | | | | | | | | | | LAMINEC/FACE | | | | | | | TECT/FORAMIN | | | | | | | ,EACH ADDNL | | | | | | | OR | | | | | | | LAMINEC/FACE | | | | | | | TECT/FORAMIN | | | | | | | ,EACH ADDNL | | | | | | | LAMINECTOMY | | | | | | | PLIF/TLIF | | | | | | | INSTRUMENTAT | | | | | | | ION | | | +--------+--------+ + + + + Encounter Details +--------+ + + + + | Date | Type | Department | Care Team | Description | +--------+ + + + + | 02/23/ | Anesthesia | [facility]EVIN BREEN | Devonte You | | | 2017 | Event | [facility] | MD Monique [address] | | | | | [address] | [address] [place] | | | | | [place] | [address] | | | | | [address] | | | | | | [phone] | Emre Lock MD | | | | | | [address] | | | | | | [place] | | | | | | [address] | | | | | | | | +--------+ + + + + Anesthesia Record + + + + + | Procedure Name | Responsible | Anesthesia Start | Anesthesia Stop Time | | | Anesthesiologist | Time | | + + + + + | L5-S1 Transforaminal | Devonte You, | 02/23/17 0812 | 02/23/17 1234 | | Lumbar Interbody | | | | | Fusion, Hardware | | | | | Revision @ L2-3, | | | | | L3-4, L4-5 | | | | | (Posterior Spine | | | | | Lumbar) | | | | + + + + + +----+---+ + + | Da | T | Event | Comment | | te | i | | | | | m | | | | | e | | | +----+---+ + + | 04 | 0 | | | | /2 | 7 | | | | 6/ | 0 | | | | 20 | 3 | | | | 17 | | | | +----+---+ + + | | 0 | An Checkout | Pre-use anesthesia machine/equipment checkout. | | | 7 | | | | | 1 | | | | | 0 | | | +----+---+ + + | | 0 | Antibiotic | | | | 7 | Given | | | | 4 | | | | | 8 | | | +----+---+ + + | | 0 | An Start | Versed 2 mg IV in SDS 7, then to OR 2 with sedated patient. | | | 8 | | Reassessment prior to anesthesia induction/procedure. | | | 1 | | | | | 2 | | | +----+---+ + + | | 0 | an etta now | | | | 8 | | | | | 1 | | | | | 3 | | | +----+---+ + + | | 0 | Antibiotic | | | | 8 | Given | | | | 1 | | | | | 5 | | | +----+---+ + + | | 0 | Preoxygenat | | | | 8 | ed | | | | 1 | | | | | 7 | | | +----+---+ + + | | 0 | An | | | | 8 | Induction | | | | 2 | | | | | 1 | | | +----+---+ + + | | 0 | An | | | | 8 | Intubation | | | | 2 | | | | | 2 | | | +----+---+ + + | | 0 | AN Bite | | | | 8 | Block | | | | 2 | | | | | 3 | | | +----+---+ + + | | 0 | Bayside | | | | 8 | 43-degrees | | | | 2 | | | | | 8 | | | +----+---+ + + | | 0 | First | | | | 8 | Inc/Proc St | | | | 3 | | | | | 3 | | | +----+---+ + + | | 1 | Bayside off | | | | 1 | | | | | 5 | | | | | 8 | | | +----+---+ + + | | 1 | Breathing | | | | 2 | Spontaneous | | | | 0 | ly | | | | 2 | | | +----+---+ + + | | 1 | AN No | TOF 4/4 with sustained tetanus. | | | 2 | Residual | | | | 1 | NMB | | | | 2 | | | +----+---+ + + | | 1 | Oropharynx | | | | 2 | Suctioned | | | | 2 | | | | | 8 | | | +----+---+ + + | | 1 | Moving | | | | 2 | Purposefull | | | | 3 | y | | | | 4 | | | +----+---+ + + | | 1 | Extubated | | | | 2 | Awake | | | | 3 | | | | | 4 | | | +----+---+ + + | | 1 | An Stop | Patient handed off to recovery nurse. | | | 3 | | | | | 4 | | | +----+---+ + + +------+ | Meds | +------+ + + + | Name | Total | + + + | midazolam | 2 mg | + + + | fentaNYL injection (2 mL) | 100 mcg | + + + | lidocaine 2% (PF) | 60 mg | + + + | vecuronium | 6 mg | + + + | dexamethasone | 10 mg | + + + | ondansetron | 4 mg | + + + | HYDROmorphone | 2 mg | + + + | dexmedetomidine (PRECEDEX) 4 | 100 mcg | | mcg/mL in sodium chloride 0.9% | | | 100 mL infusion | | + + + | magnesium sulfate | 2 g | + + + | glycopyrrolate | 0.2 mg | + + + | propofol | 150 mg | + + + | propofol | 284.93 mg | + + + | ceFAZolin in saline (ANCEF) IVPB | 4 g | | 2 g | | + + + | ePHEDrine | 87.5 mg | + + + | Phenylephrine 100mcg/mL SYRINGE | 1,100 mcg | + + + | ketamine | 100 mg | + + + | lactated ringers (LR) infusion | 1,800 mL | + + + + + | Name | + + | N2O Flow Rate (L/Min) | + + | O2 Flow Rate (L/Min) | + + | Insp O2 | + + | Exp SEV | + + | Exp LUIS | + + | Air Flow Rate (L/Min) | + + + + | No blood administrations on file. | + + +--------+ + + + | Type | Details | Placement | Removal | +--------+ + + + | Drain/ | 02/23/17; posterior; back; | 02/23/17 0000 by | 02/26/17 1426 by | | Device | collapsible closed device; 10 fr | Ana Coronado RN | [facility] | | Site | round drain; tip intact; healing | | [place] | | | within expectations; 02/26/17; | | | | | 1426 | | | +--------+ + + + | Brace/ | 02/23/17; LSO (lumbar sacral | 02/23/17 0000 by | 01/22/19 1643 by | | Orthot | orthosis); 01/22/19 | Angelica Atwood RN | User Epic | | ic/Ort | (Removed/Completed by utility); | | | | hosis | 1643 (Removed/Completed by | | | | | utility) | | | +--------+ + + + | Periph | 02/23/17; 0704; Left; Mid; | 02/23/17 0704 by | 02/26/17 1426 by | | eral | Forearm; vrex-cep-gjrvir catheter | Hasmukh Espinoza RN | [facility] | | IV | system; 18 gauge, 1 11/03 in | | [place] | | | length; distraction, intradermal | | | | | injection, tolerated well; no | | | | | longer indicated, catheter/device | | | | | intact; healing within | | | | | expectations; 02/26/17; 1426 | | | +--------+ + + + | Airway | Placement Date: 02/23/17; | 02/23/17821 by | 02/23/17 1234 by | | | Placement Time: 821; Mask | Devonte You, | Devonte You, | | | Ventilation: EZ; Airway Grade: | MD | MD | | | 2a; External Maneuvers: CP; | | | | | Successful Technique: video scope | | | | | ([place]); Laryngoscope Blade | | | | | Size: 3; Airway Type: | | | | | endotracheal, oral, cuffed, | | | | | fenestrated, disposable; Size: | | | | | 6.5; Position: Right; Airway Tube | | | | | Secured At: 24; Tube Reference | | | | | Point: teeth, secure and patent; | | | | | Trauma: none; Other Equipment: | | | | | tooth guard, stylette; Placement | | | | | Check: bilateral chest rise, | | | | | breath sounds equal bilaterally, | | | | | exhaled CO2 detection device; | | | | | Removal Date: 02/23/17; Removal | | | | | Time: 1234 | | | +--------+ + + + | Read | 02/23/17; 0902; Bilateral; back; | 02/23/17 0902 by | 01/23/19 1342 by | | only - | 01/23/19 (Completed/Removed by | Ana Coronado RN | User Epic | | | Utility); 1342 (Completed/Removed | | | | Incisi | by Utility) | | | | on | | | | +--------+ + + + | Urethr | 02/23/17; 1228; indicated due to | 02/23/17 1228 by | 02/23/17 1317 by | | al | specific surgical procedure; All | Tom Dorman RN | Dwight Braxton, | | Cathet | elements; All elements; All | | RN | | er | elements; indwelling double lumen | | | | | catheter; 100% silicone; 16; 1; | | | | | 10; 10; drainage bag to dependent | | | | | drainage; short term use; | | | | | 02/23/17; 1317 | | | +--------+ + + + [...] encounter OR Notes Anesthesia Postprocedure Evaluation - Devonte You MD - 02/23/2017 1:01 PM PDTForma tting of this note might be different from the original. ANESTHESIA POSTANESTHESIA EVALUATION Uziel Rea 71 y.o. male 1945 [id number] Procedure(s) L5-S1 Transforaminal Lumbar Interbody Fusion, Hardware Revision @ L2-3, L3-4, L4-5 (Posterior Spine Lumbar) Cooperates? Yes Mental Status Performs simple tasks. Respiratory Satisfactory - Airway patent (self maintained). Cardiovascular Satisfactory Blood pressure and heart rate acceptable Temperature Satisfactory Pain Satisfactory N/V Control Satisfactory Hydration Satisfactory No signs of dehydration Complications None apparent Filed Vitals: 02/23/17 1250 02/23/17 1255 02/23/17 1300 BP: 128/80 139/81 123/78 Pulse: 91 96 90 Temp: Resp: 15 11 15 SpO2: 94% 95% 97% Electronically signed by Devonte You MD 02/23/2017 13:01 [facility] nesthesia Preproc edure Evaluation - Devonte You MD - 02/23/2017 6:51 AM PDTFormatting of this note m ight be different from the original. ANESTHESIA PREANESTHESIA EVALUATION Uziel Silas Rea 71 y.o. male 1945 [id number] Procedure(s): L5-S1 Transforaminal Lumbar Interbody Fusion, Hardware Revision @ L2-3, L3-4, L4-5 (Posterior ) Medical history, anesthesia, medications, allergy, NPO status verified histories reviewed. ECG reviewed. Labs reviewed. Review of Systems / Med History Anesthesia History No anesthesia complications. (-) PONV, malignant hyperthermia Cardiovascular (+) hypertension, pulmonary hypertension(-) CHF, congenital heart disease , Exercise tolera nce >4 METS Pulmonary Negative except where noted below. 40 Pack year tobacco. (+) sleep apnea: known Neurology Negative except where noted below. Psychology Cannabis 2x per day. (+) anxiety, depression, substance abuse Renal Negative except where noted below. Gastrointestinal/Hepatic Negative except where noted below. Endocrine (+) hypothyroidism Other Lab Results Component Value Date WBC 8.0 02/18/2017 HGB 13.9 02/18/2017 HCT 42.1 02/18/2017 MCV 96.5 02/18/2017 PLT 336 02/18/2017 Lab Results Component Value Date CREA 0.75 02/18/2017 BUN 10 02/18/2017 NA 141 02/18/2017 K 4.0 02/18/2017 CL 108 02/18/2017 CO2 26 02/18/2017 . (+) arthritis Physical Exam Airway MP III, TM >3 FB, Mouth opening <2 FB. Neck: full ROM, extends >30 degrees. Jaw protru magali normal. Dental Grossly normal except where noted below.; (+) Age appropriate dentition. CV Rhythm regular. Rate Normal. (-) murmur, carotid bruit, peripheral edema, JVD and weak pulses. Pulm Clear to auscultation bilaterally. (-) wheezing, rhonchi, decreased breath sounds, rales and stridor. Neuro Grossly normal. Anesthesia Plan ASA 3 Type: General. Induction: Intravenous. Potential problems: Difficult airway. Monitors: Standard ASA monitors. Consent statement:Anesthetic plan, alternatives, risks and benefits discussed with patient and family. Risks discussed included (but were not limited to): dental injury, pain, sore throat, infec tion, voice injury, muscle aches, nausea, respiratory events, . Consenting person understands and agrees to proceed. PARQ. Risks and benefits of general anesthetic discussed with patient and available family member s. They agree to proceed, answered all questions. Past Medical History: Depression Arthritis Comment:rheumatoid Cancer ([facility]) 2003 Comment:colon cancer Anxiety Hypothyroid Hard of hearing Comment:bilateral hearing aids Rheumatoid arthritis ([facility]) Tremor Sleep apnea Comment:no CPAP Lumbar radiculopathy Degenerative disc disease, lumbar . documented in this encounter Plan of Treatment Not on filedocumented as of this encounter Visit Diagnoses Not on filedocumented in this encounter Administered Medications + +--------+ +------+------+------+ | Medication Order | MAR | Action | Dose | Rate | Site | | | Action | Date | | | | + +--------+ +------+------+------+ | ceFAZolin in saline (ANCEF) | Given | 02/24/20 | 2 g | | | | IVPB 2 g 2 g, Intravenous, | | 17 12:16 | | | | | Administer over 30 Minutes, Prior | | PM PDT | | | | | to Incision, Starting Wed | | | | | | | 02/23/17 at 0621, For 1 dose, | | | | | | | Administer within 1 hour of | | | | | | | surgical incision. Keep in | | | | | | | refrigerator., Pre-op, | | | | | | | Indications: Surgical Prophylaxis | | | | | | + +--------+ +------+------+------+ +-------+ +-----+---+---+ | Given | 02/24/20 | 2 g | | | | | 17 8:15 | | | | | | AM PDT | | | | +-------+ +-----+---+---+ +---+---+ | | | +---+---+ + +-------+ +-------+---+---+ | dexamethasone (DECADRON) 10 | Given | 02/24/20 | 10 mg | | | | mg/mL injection Intravenous, | | 17 8:21 | | | | | PRN, Starting 02/23/17 at | | AM PDT | | | | | 0821, Anesthesia Intra-op | | | | | | + +-------+ +-------+---+---+ +---+---+ | | | +---+---+ + +---------+ +--------+ +---+ | dexmedetomidine (PRECEDEX) 4 | New Bag | 02/24/20 | 100 | 25 mL/hr | | | mcg/mL in sodium chloride 0.9% | | 17 8:30 | mcg/hr | | | | 100 mL infusion 400 mcg, | | AM PDT | | | | | CONTINUOUS PRN, Starting Wed | | | | | | | 02/23/17 at 0830, Anesthesia | | | | | | | Intra-op | | | | | | + +---------+ +--------+ +---+ +---+---+ | | | +---+---+ + +-------+ +---------+---+---+ | ePHEDrine 50 mg/mL injection | Given | 02/24/20 | 12.5 mg | | | | PRN, Starting 02/23/17 at | | 17 10:29 | | | | | 0826, Anesthesia Intra-op | | AM PDT | | | | + +-------+ +---------+---+---+ +-------+ +---------+---+---+ | Given | 02/24/20 | 12.5 mg | | | | | 17 9:11 | | | | | | AM PDT | | | | +-------+ +---------+---+---+ | Given | 02/24/20 | 12.5 mg | | | | | 17 8:47 | | | | | | AM PDT | | | | +-------+ +---------+---+---+ +---+---+ | | | +---+---+ + +-------+ +--------+---+---+ | fentaNYL (PF) injection PRN, | Given | 02/24/20 | 50 mcg | | | | Pain, Starting 02/23/17 at | | 17 12:10 | | | | | 1210, Anesthesia Intra-op | | PM PDT | | | | + +-------+ +--------+---+---+ +-------+ +--------+---+---+ | Given | 02/24/20 | 50 mcg | | | | | 17 12:05 | | | | | | PM PDT | | | | +-------+ +--------+---+---+ +---+---+ | | | +---+---+ + +-------+ +--------+---+---+ | glycopyrrolate (ROBINUL) | Given | 02/24/20 | 0.2 mg | | | | injection Intravenous, PRN, | | 17 8:40 | | | | | Secretions, Starting 02/23/17 | | AM PDT | | | | | at 0840, Anesthesia Intra-op | | | | | | + +-------+ +--------+---+---+ +---+---+ | | | +---+---+ + +-------+ +------+---+---+ | HYDROmorphone (DILAUDID) 2 | Given | 02/24/20 | 1 mg | | | | mg/mL injection PRN, Pain, | | 17 11:18 | | | | | Starting 02/23/17 at 0820, | | AM PDT | | | | | Anesthesia Intra-op | | | | | | + +-------+ +------+---+---+ +-------+ +------+---+---+ | Given | 02/24/20 | 1 mg | | | | | 17 8:20 | | | | | | AM PDT | | | | +-------+ +------+---+---+ +---+---+ | | | +---+---+ + +-------+ +-------+---+---+ | ketamine 50 mg/mL injection | Given | 02/24/20 | 50 mg | | | | PRN, Starting 02/23/17 at | | 17 9:00 | | | | | 0855, Anesthesia Intra-op | | AM PDT | | | | + +-------+ +-------+---+---+ +-------+ +-------+---+---+ | Given | 02/24/20 | 50 mg | | | | | 17 8:55 | | | | | | AM PDT | | | | +-------+ +-------+---+---+ +---+---+ | | | +---+---+ + +---------+ +---------+-------+---+ | lactated ringers (LR) infusion | New Bag | 02/24/20 | 100 mLs | 100 | | | at 100 mL/hr, Intravenous, | | 17 6:20 | | mL/hr | | | CONTINUOUS, Starting Tue02/23/17 | | PM PDT | | | | | at 0645 | | | | | | + +---------+ +---------+-------+---+ +---------+ +---+-------+---+ | New Bag | 02/24/20 | | 100 | | | | 17 2:39 | | mL/hr | | | | PM PDT | | | | +---------+ +---+-------+---+ | New Bag | 02/24/20 | | 100 | | | | 17 1:08 | | mL/hr | | | | PM PDT | | | | +---------+ +---+-------+---+ +---+---+ | | | +---+---+ + +-------+ +-------+---+---+ | lidocaine (PF) 2% injection | Given | 02/24/20 | 60 mg | | | | PRN, Starting Tue02/23/17 at | | 17 8:21 | | | | | 0821, Anesthesia Intra-op | | AM PDT | | | | + +-------+ +-------+---+---+ +---+---+ | | | +---+---+ + +---------+ +--------+---------+---+ | magnesium sulfate 500 mg/mL | New Bag | 02/24/20 | 2 g/hr | 4 mL/hr | | | injection CONTINUOUS PRN, | | 17 8:30 | | | | | Starting Tue02/23/17 at 0830, | | AM PDT | | | | | Anesthesia Intra-op | | | | | | + +---------+ +--------+---------+---+ +---+---+ | | | +---+---+ + +-------+ +------+---+---+ | midazolam (VERSED) 1 mg/mL | Given | 02/24/20 | 2 mg | | | | injection Intravenous, PRN, | | 17 8:10 | | | | | Anxiety, Starting 02/23/17 at | | AM PDT | | | | | 0810, Anesthesia Intra-op | | | | | | + +-------+ +------+---+---+ +---+---+ | | | +---+---+ + +-------+ +------+---+---+ | ondansetron (ZOFRAN) injection | Given | 02/24/20 | 4 mg | | | | PRN, Nausea, Vomiting, Starting | | 17 8:21 | | | | | 02/23/17 at 0821, Anesthesia | | AM PDT | | | | | Intra-op | | | | | | + +-------+ +------+---+---+ +---+---+ | | | +---+---+ + +-------+ +---------+---+---+ | phenylephrine (SIMÓN-SYNEPHRINE) | Given | 02/24/20 | 100 mcg | | | | 100 mcg/mL injection | | 17 10:29 | | | | | Intravenous, PRN, Starting Wed | | AM PDT | | | | | 02/23/17 at 0908, Anesthesia | | | | | | | Intra-op | | | | | | + +-------+ +---------+---+---+ +-------+ +---------+---+---+ | Given | 02/24/20 | 100 mcg | | | | | 17 10:24 | | | | | | AM PDT | | | | +-------+ +---------+---+---+ | Given | 02/24/20 | 100 mcg | | | | | 17 10:16 | | | | | | AM PDT | | | | +-------+ +---------+---+---+ +---+---+ | | | +---+---+ + +-------+ +--------+---+---+ | propofol (DIPRIVAN) injection | Given | 02/24/20 | 150 mg | | | | Intravenous, PRN, Starting Wed | | 17 8:21 | | | | | 02/23/17 at 0821, Anesthesia | | AM PDT | | | | | Intra-op | | | | | | + +-------+ +--------+---+---+ +---+---+ | | | +---+---+ + +---------+ + +-------+---+ | propofol (DIPRIVAN) injection | New Bag | 02/24/20 | 30 | 15.3 | | | Intravenous, CONTINUOUS PRN, | | 17 9:00 | mcg/kg/m | mL/hr | | | Starting 02/23/17 at 0900, | | AM PDT | in | | | | Anesthesia Intra-op | | | | | | + +---------+ + +-------+---+ +---+---+ | | | +---+---+ + +-------+ +------+---+---+ | vecuronium (NORCURON) injection | Given | 02/24/20 | 6 mg | | | | Intravenous, PRN, Ventilator | | 17 8:21 | | | | | Dyssynchrony, Starting Wed | | AM PDT | | | | | 02/23/17 at 0821, Anesthesia | | | | | | | Intra-op | | | | | | + +-------+ +------+---+---+ +---+---+ | | | +---+---+ documented in this encounter"
--- OUTSIDE RECORDS SUMMARY | ~2020-07-14 | XMS | Encounter Summary ---
Demographics + + + | Address | [address] | | | [place] [address] | + + + | Home Phone [...] + + + | Author | [facility] | | | and [place] | + + + | Organization | [facility] | | | [...] [place] | | | | | [address] | | + + + + + | Mao Rea | ECON | Unknown | | + + + + + | Meredith Rea | ECON | Unknown | | + + + + + Care Team Providers + +------+ + | Care Motor Equipment Sergeant Name | Role | Phone | + +------+ + | Sherie Vela PA-C | PCP | | + +------+ + Reason for Visit + +--------+ + | Reason | Onset | Comments | | | Date | | + +--------+ + | Medication Refill | 05/05/ | | | | 2016 | | + +--------+ + Encounter Details +--------+--------+ + + + | Date | Type | Department | Care Team | Description | +--------+--------+ + + + | 05/05/ | Refill | [facility] | Koby George MD | Medication Refill | | 2017 | | NEUROSURGERY [address] | [address] | | | | | [address] | [place] [address] | | | | | [place] | [phone] | | | | | [address] | | | | | | [phone] | | | +--------+--------+ + + + [...] this encounter Miscellaneous Notes Telephone Encounter - Regi Medina - 05/06/2017 10:39 AM PDTRX/MEDICATION PICKED UP Name of person who picked up medication: Henny eRa Relationship to the patient: Date and time medication picked up: 05/06/2017 10:39 ID type verified: yes ID Number: [id number] elephone Encounter - Jaquelin Mars RN - 05/05/2017 4:38 PM PDTNotified patient/ spouse Rx approved. Henny w ill potato picker during office hours tomorrow (05/06/17) Confirmed open [phone].Electronically s igned by Jaquelin Mars RN at 05/05/2017 4:40 PM PDTTelephone Encounter - Ender Mora PA-C - 05/05/2017 4:08 PM PDTapproved elephone Encounter - Jaquelin Mars RN - 05/05/2017 10:45 AM PDTMedication Refill Request Procedure: L5-S1 Transforaminal Lumbar Interbody Fusion, Hardware Revision @ L2-3, L3-4, L 4-5 Date of Surgery: 02/23/2017 Date of Next Office Visit: 05/25/2017 Medication requested: Oxycodone 10 mg; Lactulose (to [facility]) Do you have a pain contract with any providers: On hold with pain clinic for 90 day post o p period; Pain clinic appointment 05/18/2017 Are you receiving pain medication prescriptions from any other providers: No Current intake: 2 tablets every 4 hours (10 tablets daily) Date of last refill: 04/26/2017 # of tabs left/or when will patient run out of this medication: 43 tablets left Where is pain located? Type of pain (constant, intermittent, sharp, dull)? : Nerve pain pe rsisting but much more manageable Send in the mail or call in to preferred pharmacy? [facility] (will confirm with c all back when approved) Please approve/ deny Rx. elephone Encounter - Regi Medina - 05/05/2017 10:27 AM PDTPatient would like a r efill on his Laculos and his oxycodone. Please send his laxative to [facility] in [facility]. Patient would like his oxycodone prescription mailed to him if possible. Please call patient at [phone] if you have any questions or when these are ready. documented in this enc ounter Plan of Treatment Not on filedocumented as of this encounter Visit Diagnoses + + | Diagnosis | + + | S/P lumbar fusion Arthrodesis status | + + documented in this encounter"
--- OUTSIDE RECORDS SUMMARY | ~2020-07-14 | XMS | Encounter Summary ---
Demographics + + + | Address | [address] | | | [place] [address] | + + + | Home Phone | | + + + | Preferred Language | Unknown | + + + | Marital Status | | + + + | Mormon Affiliation | Unknown | + + + | Race | White | + + + | Ethnic Group | Not or | + + + Author + + + | Author | [facility] | | | and [place] | + + + | Organization | [facility] | | | [...] [place], [place] | | | | | [address] | | + + + + + | Mao Rea | ECON | Unknown | | + + + + + | Meredith Rea | ECON | Unknown | | + + + + + Care Team Providers + +------+ + | Care Dry Cell Sealer Name | Role | Phone | + +------+ + | Brandon Juarez MD | PCP | | + +------+ + Reason for Visit + +--------+ + | Reason | Onset | Comments | | | Date | | + +--------+ + | Medication Refill | 02/03/ | | | | 2014 | | + +--------+ + Encounter Details +--------+--------+ + + + | Date | Type | Department | Care Team | Description | +--------+--------+ + + + | 02/03/ | Refill | [facility] | Koby George MD | Medication Refill | | 2014 | | NEUROSURGERY [address] | [address] | | | | | [address] | [place] [address] | | | | | [place] | [phone] | | | | | [address] | | | | | | [phone] | | | +--------+--------+ + + + [...] Notes Telephone Encounter - Emily Padilla - 02/04/2015 3:46 PM PDTRx sent via Certified [place] l# [phone]. Henny, Uziel's spouse, is updated at this time. Electronically signed by Emily gill 02/04/2015 3:46 PM PDTTelephone Encounter - Emily Padilla - 02/04/2015 10:09 AM PDTC onfirmed Henny is on Uziel's verbal release. Medication Refill Request Procedure: L2-L5 Fusion Date of Surgery: 12/02/14 Medication requested: Hydrocodone 5/325 mg Current intake: 2 tabs twice daily as needed Date of last refill: 01/07/15 # of tabs left before medication runs out: 1/3 bottle Where is pain located?: Bilateral anterior hip pain-aggravated by physical therapy. Type of pain (constant, intermittent, sharp, dull)?: Describes this pain as a "sharp" pain that is intermittent. Send in the mail or call in to preferred pharmacy? Rx is attached. Please approve/deny. Please send in the mail. Address is verified at this time. elephone Encounter - Kimberly Panda - 02/03/2015 1:09 PM PDTPatient's spouse called to request RX refill for HY DROcodone-acetaminophen (NORCO) 5-325 mg per tablet. Please mail script to patient.Talia yao signed by Kimberly Panda at 02/03/2015 1:10 PM PDTdocumented in this encounter Plan of Treatment Not on filedocumented as of this encounter Visit Diagnoses + + | Diagnosis | + + | S/P lumbar fusion - Primary Arthrodesis status | + + documented in this encounter
--- OUTSIDE RECORDS SUMMARY | ~2020-07-14 | XMS | Encounter Summary ---
Demographics + + + | Address | [address] | | | [place] [address] | + + + | Home Phone [...] + + + | Author | [facility] | | | and [place] | + + + | Organization | [facility] | | [...] [place], [place] | | | | | [address] | | + + + + + | Mao Rea | ECON | Unknown | | + + + + + | Meredith Rea | ECON | Unknown | | + + + + + Care Team Providers + +------+ + | Care Bridge Operator Slip Name | Role | Phone | + +------+ + | Brandon Juarez MD | PCP | | + +------+ + Reason for Visit +--------+--------+ + | Reason | Onset | Comments | | | Date | | +--------+--------+ + | Other | 03/05/ | reschedule appointment time | | | 2014 | | +--------+--------+ + Encounter Details +--------+ + + + + | Date | Type | Department | Care Team | Description | +--------+ + + + + | 03/05/ | Telephone | [facility] | Koby George MD | Other (reschedule | | 2014 | | NEUROSURGERY [address] | [address] | appointment time) | | | | [address] | [place] [address] | | | | | [place] | [phone] | | | | | [address] | | | | | | [phone] | | | +--------+ + + + [...] this encounter Miscellaneous Notes Telephone Encounter - Sho Scott - 03/05/2015 2:39 PM PDTPatient's spouse called back. She verified that they could make it to the reschedule 1:15 time. elephone Encounter - Emily Padilla - 03/05/2015 12:43 PM PDTLeft a message for Uziel to reschedule his office visit time on 03/07/15 to 1:15 pm. Requested a callback. P M PDTdocumented in this encounter Plan of Treatment Not on filedocumented as of this encounter Visit Diagnoses Not on filedocumented in this encounter"
--- OUTSIDE RECORDS SUMMARY | ~2020-07-14 | XMS | Encounter Summary ---
Demographics + + + | Address | [address] | | | [place] [address] | + + + | Home Phone | | + + + | Preferred Language | Unknown | + + + | Marital Status | | + + + | Mandaen Affiliation | Unknown | + + + | Race | White | + + + | Ethnic Group | Not or | + + + Author + + + | Author | [facility] | | | and [place] | + + + | Organization | [facility] | | | [...] [place], [place] | | | | | [address] | | + + + + + | Mao Rea | ECON | Unknown | | + + + + + | Meredith Rea | ECON | Unknown | | + + + + + Care Team Providers + +------+ + | Care Chain Builder Name | Role | Phone | + +------+ + PCP | Unavailable | + +------+ + Encounter Details +--------+ + + + + | Date | Type | Department | Care Team | Description | +--------+ + + + + | 07/13/ | Abstract | [facility] | [facility] | | | 2011 | | Conversion Location | SR | | | | | [place] [address] | | | | | | [place], [place] | | | | | | [address] | | | | | | [phone] | | | +--------+ + + + [...] + + + | Blood Pressure | 102/60 | 07/13/2011 12:00 AM | | | | | PDT [...] + + + + | Weight | 103.4 kg (227 lb | 07/13/2011 12:00 AM | | | | 14.4 oz) | PDT | | + + + + + | Height | 177.8 cm (5' 10") | 06/15/2011 12:00 AM | | | | | PDT | | + + + + + | Body Mass Index | 32.7 | 06/15/2011 12:00 AM | | | | | PDT | | + + + + + documented in this encounter Plan of Treatment Not on filedocumented as of this encounter Visit Diagnoses Not on filedocumented in this encounter
--- OUTSIDE RECORDS SUMMARY | ~2020-07-14 | XMS | Encounter Summary ---
Demographics + + + | Address | [address] | | | [place] [address] | + + + | Home Phone | | + + + | Preferred Language | Unknown | + + + | Marital Status | | + + + | Protestant Affiliation | Unknown | + + + | Race | White | + + + | Ethnic Group | Not or | + + + Author + + + | Author | [facility] | | | and [place] | + + + | Organization | [facility] | | [...] [place] | | | | | [address] | | + + + + + | Mao Rea | ECON | Unknown | | + + + + + | Meredith Rea | ECON | Unknown | | + + + + + Care Team Providers + +------+ + | Care Spiritual Minister Name | Role | Phone | + [...] | | | n | Parkinson's | [facility] | [place] | | | | | disease | MD Milo | Therapy [address] | | | | | ([facility]) [address] | [address] | | | | | [place]mitry | [address] | [place], | | | | | HIGHBALLER | [place], | [place] [address] | | | | | | [place] [address] | Phone: | | | | | | Phone: | [phone] | | | | | | [phone] | Fax: | | | | | | Fax: | [phone] | | | | | | [phone] | | + +--------+ + + + + Encounter Details +--------+---------+ + + + | Date | Type | Department | Care Team | Description | +--------+---------+ + + + | 05/15/ | Office | [facility] | Winnie Merino, | Cognitive | | 2020 | Visit | [facility] | Speech Pathologist | communication | | | | [address] | | disorder | | | | [place] | | | | | | [address] | | | | | | [phone] | | | +--------+---------+ + + + [...] Progress Notes Winnie Merino, Speech Pathologist - 05/15/2020 1:00 PM PDTFormatting of this note mig t be different from the original. [facility] [address] [facility] [facility] [address] Speech Therapy Daily Treatment Note Date: 05/15/2020 Patient Information Patient Name: Uziel Rea Date of : 1945 Age: 75 y.o. 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 Date of Onset: 04/18/2020 Referring Provider: Murphy Ordaz MD Rehab Precautions Office Visit from 04/18/2020 in [facility] Rehab Precautions Precautions Comments Depression/mental health Hx Rehab Learning Style [facility] Learning Style Patient's [employer] Learning Style reading [written information] Today's Treatment Start Time: 1305 Stop time: 1346 Duration: 41 minutes Timed Treatment Codes: 0 minutes # of Speech Visits to Date: 4 Pain Assessment: Pain Scale Used: NUMERIC Pain Rating Pre Assessment: 6 Subjective: Patient and pt's , Maribell, present for session. Brought memory notebook, and reported completing all acitivities on daily task list once. Patient was able to indicate t hat them main item he often doesn't do is walk the dog, and that is due to pain. Following d iscussion, patient was very pleased to realize he has made significant progress with orienta tion and task initiation. Per Maribell pt is consistently completing daily tasks without her ne ed to provide reminders. Objective: Adjustments to memory notebook made to better serve pt in use; eliminated daily entry as pt does not like to write, added names and shows tabs. Pt is to write in a contacts name and any details about the person and practice/view list to improve recall of familiar names, as this was indicated by pt to being of significance to him. Medications tab updated withchanges. Re-training in use of crossing off previous day on calendar for easier orientat ion to day. Training provided to patient to look "in the spot" when Maribell is not home, she a lways leaves a note saying where she has gone and he does not remember to look; verbalized u nderstanding. Assessment: Improves task initiation and orientation. Consistently checking calendar daily and planning for upcoming appointments. Uziel will continue to benefit from reminders for use of notebook; Maribell demonstrated understanding on need for cues for appropriate use and esta blishing a routine. Needs to establish compensatory strategies for recall of names and detai ls about others. Plan: Assess functional and successful use of memory notebook to initiate tasks with daily schedule, daily note/orientation, understanding and use of after visit summary tab. Electronically signed by: Winnie Merino Speech Pathologist, 05/15/2020 1:54 PM PDT Patient Name: Uziel Rea/: 1945/ doc umented in this encounter Plan of Treatment Not on filedocumented as of this encounter Visit Diagnoses + + | Diagnosis | + + | Cognitive communication disorder | + + documented in this encounter
--- OUTSIDE RECORDS SUMMARY | ~2020-07-14 | XMS | Encounter Summary ---
Demographics + + + | Address | [address] | | | [place] [address] | + + + | Home Phone [...] | Author | [facility] | | | and [place] | + + + | Organization | [facility] | | | and [...] [place] | | | | | [address] | | + + + + + | Mao Rea | ECON | Unknown | | + + + + + | Meredith Rea | ECON | Unknown | | + + + + + Care Team Providers + +------+ + | Care Claim Taker Name | Role | Phone | + +------+ + | Sherie Vela PA-C | PCP | | + +------+ + Reason for Visit + +--------+ + | Reason | Onset | Comments | | | Date | | + +--------+ + | Results, Imaging | 02/23/ | | | | 2017 | | + +--------+ + Encounter Details +--------+ + + + + | Date | Type | Department | Care Team | Description | +--------+ + + + + | 02/23/ | Telephone | [facility] | Koby George MD | Results, Imaging | | 2018 | | NEUROSURGERY [address] | [address] | | | | | [address] | [place] [address] | | | | | [place] | [phone] | | | | | [address] | | | | | | [phone] | | | +--------+ + + + [...] this encounter Miscellaneous Notes Telephone Encounter - Rosa Martin Cert MA - 03/06/2018 9:57 AM PDTCj called and spoke to spouse. She has been updated and appointment was scheduled for 09/04/18. Patient was very appreciative. el ephone Encounter - Pedro Riggins PA-C - 03/03/2018 11:02 AM PDTFollow up in 6 months jose FERNANDES to check his progress. elephone Encounter - Rosa Martin Cert MA - 03/01/2018 2:12 PM PDTI akila led and was able to speak to patients spouse. She stated this sounds like a great plan. I sp lex with Reginald Trent as well and Reginald is going to be getting a new BGS for patient and it will be mailed in the next couple of weeks to patients home. Spouse would like to try to av oid surgery so very happy with this plan. Spouse would like to know when you would like patient to follow up. Please advise. elephone Encounter - Pedro Riggins PA-C - 03/01/2018 9:55 AM PDTHis images show some lucency around the iliac screws which we saw on his xray and discussed. There is bone growth in the disc space but its not complete. We should have already contacted Reginald about another bone growth stimulator for the patient. Hopefully he can continue to fuse so no more surger y is needed. ele phone Encounter - Giuliana Vasquez, Fiscal Agent - 02/28/2018 4:08 PM PDTCt Lumbar Spin e completed 02/23/2018 is available on SnappyTV. Routing to He and Dr. George to reviewElectroni raymundo signed by Giuliana Vasquez Fiscal Agent at 02/28/2018 4:08 PM PDTTelephone Regi Ko - 02/28/2018 2:59 PM PDTPatient showed up asking that we poke at [facility] to get his images. They would like to get the images reviewed so that they know what their next steps should be. 3: 05 PM PDTTelephone Encounter - Giuliana Vasquez Fiscal Agent - 02/23/2018 4:[address] Lumbar Spine images now available on SnappyTV. Routing to He to reviewElectronic ally signed by Giuliana Vasquez Fiscal Agent at 02/23/2018 4:32 PM PDTTelephone Jaquelin Macedo RN - 02/23/2018 4:[address] results are available to review on I-Site elephone Jaquelin Goetz RN - 02/23/2018 3:[address] Lumbar results pushed to I-Site elephone Andre Samuel - 02/23/2018 3:[address]. Please have pr ovider reviiew documented in this encounter Plan of Treatment Not on filedocumented as of this encounter Visit Diagnoses Not on filedocumented in this encounter"
--- OUTSIDE RECORDS SUMMARY | ~2020-07-14 | XMS | Encounter Summary ---
Demographics + + + | Address | [address] | | | [place] [address] | + + + | Home Phone | | + + + | Preferred Language | Unknown | + + + | Marital Status | | + + + | Advent Affiliation | Unknown | + + + | Race | White | + + + | Ethnic Group | Not or | + + + Author + + + | Author | [facility] | | | and [place] [...] [place] | | | | | [address] | | + + + + + | Mao Rea | ECON | Unknown | | + + + + + | Meredith Rea | ECON | Unknown | | + + + + + Care Team Providers + +------+ + | Care Ssn/Ssbn Assistant Navigator Name | Role | Phone | + [...] | Lumbar | Tino, | [address] | | | | | radiculopath | Luis Carlos Lerner MD | [place], | | | | | y | [address] | [place] | | | | | Procedures | [place] | [address] | | | | | DC INJECT | [facility] [place] | Phone: | | | | | ANES/STEROID | [address] | [phone] | | | | | FORAMEN | Phone: | Fax: | | | | | LUMBAR/SACRA | [phone] | [phone] | | | | | L W IMG | Fax: | | | | | | GUIDE ,1 | [phone] | | | | | | LEVEL DC | | | | | | | [...] + + | 08/09/ | Hospital | [facility] | Eric, | Lumbar radiculopathy | | 2017 | Encounter | MED CTR XRAY [address] | [address] | | | | | [place] | [facility] [address] | | | | | [place] [address] | [place] [address] | | | | | [phone] | [phone] | | | | | | | | | | | | Chief Architect, [facility] | | | | | [...] | Multiple | | | 0 | /20 | | | Vitamins-Minerals (A | | [...] 3:30 | | | | | ONCE, 08/09/17 at 1530, For 1 | | PM [...] | | | | | Other, ONCE, Matthewe 08/09/17 at | | PM PDT | | | | | 1530, For 1 dose | | | | | | + +-------+ +-------+---+---+ +---+---+ | | | +---+---+ + +-------+ +-------+---+---+ | lidocaine (PF) 1% injection 2 | Given | 08/09/20 | 2 mLs | | | | mL 2 mL, Other, ONCE, e | | 17 3:30 | | | | | 08/09/17 at 1530, For 1 dose | | PM PDT | | | | + +-------+ +-------+---+---+ +---+---+ | | | +---+---+ + +-------+ +-------+---+---+ | lidocaine buffered 1% injection | Given | 08/09/20 | 5 mLs | | | | 5 mL 5 mL, Other, ONCE, Tue | | 17 3:20 | | | | | 08/09/17 at 1530, For 1 dose | | PM PDT | | | | + +-------+ +-------+---+---+ +---+---+ | | | +---+---+ documented in this encounter"
--- OUTSIDE RECORDS SUMMARY | ~2020-07-14 | XMS | Encounter Summary ---
Demographics + + + | Address | [address] | | | [place] [address] | + + + | Home Phone [...] Author + + + | Author | [facility] | | | and [place] | + + + | Organization | [facility] | | | and [...] [place] | | | | | [address] | | + + + + + | Mao Rea | ECON | Unknown | | + + + + + | Meredith Rea | ECON | Unknown | | + + + + + Care Team Providers + +------+ + | Care Java Lead Engineer Name | Role | Phone | + +------+ + | Sherie Vela PA-C | PCP | | + +------+ + Reason for Visit + + + | Reason | Comments | + + + | Back Pain | | + + + | Leg Pain | left | + + + Evaluate & Treat [...] | fusion | VIRY Ramos | [address] | | | | n | Pseudoarthro | [address] | [place], | | | | | sis of | AVE | [place] [address] | | | | | lumbar spine | [place] | Phone: | | | | | Flat back | [address] | [phone] | | | | | syndrome | Phone: | Fax: | | | | | Lumbar | [phone] | [phone] | | | | | stenosis | Fax: | | | | | | with | [phone] | | | | | | neurogenic [...] Description | +--------+---------+ + + + | 06/01/ | Office | [facility] | Logan Soto, | Chronic bilateral | | 2017 | Visit | PHYSIATRY [address] | MD [address] | low back pain with | | | | [address] | [place] | left-sided sciatica | | | | [place] | [address] | (Primary Dx); | | | | [address] | | Sacroiliac joint | | | | [phone] | | dysfunction of both | | | | | | sides; Left leg | | | | | | pain; History of | | | | | | lumbar fusion; | | | | | | Weakness of both | | | | | | legs; Lumbar | | | | | | radiculopathy | +--------+---------+ + + + Social History [...] Instructions Patient Instructions Petra Prater RN - 06/01/2017 8:40 AM PDTPlease attend the inject ion appointment with Luis Carlos Jiménez MD. If his office has not contacted you within one we ek, to schedule the injection, please contact my clinic. Your injection will be performed a t [facility]. Please take note [...] of the procedure you must provide a spotter driver to take you home. For all procedur es it is recommended that someone else drive you home. documented in this encounter Progress Notes Logan Soto MD - 06/01/2017 8:40 AM PDTFormatting of this note might be different fro m the original. CHIEF COMPLAINT: Chief Complaint Patient presents with Back Pain Leg Pain left HISTORY OF PRESENT ILLNESS: Uziel Rea is a 72 y.o. male being seen today to discuss back pain as requested by DOM Sandra. Uziel Rea was last seen in the clinic on 09/03/16 for lumbar spinal stenosis, lumbar radiculopathy, and back pain. Previously it was recommended that he be ree valuated by Dr. George and that he be evaluated and treated by a pain clinic. Uziel Rea was revaluated by Dr. George. He had a repeat lumbar fusion surgery completed now from L2 into sacrum. He reports that the treatment was helpful in reducing symptoms of numbness and tingling. Overall Uziel Rea reports that his symptoms are worsening. He rates the pain as 8 o n scale of 1-10. He describes the pain as constant sharp. His symptoms worsen with bending over, standing up from sitting position, walking, and everyday household activities. His s ymptoms improve with rest, lying down, and somewhat with pain medication. Uziel Rea does not describe numbness of the legs. Uziel Rea describes constant numbness and ti ngling to bilateral feet due to neuropathy. He does report weakness of the bilateral legs. He does have bowel and bladder dysfunction. He does not have saddle anesthesia. Treatments for these complaints have included Physical Therapy, steroid injections, medica tions, and surgery. Uziel Rea is currently taking oxycodone 10 mg Tablets, 5-20 mg e very four hours as needed, gabapentin 800 mg three times daily, and Cymbalta 20 mg twice jake ly for treatment of his pain. He is currently under the care of [facility]. Prior injections have included fluoroscopically-guided left L5-S1 transforaminal epidural s teroid injection as part of conservative management for chronic pain with lumbar radiculopat hy and degenerative disc disease. completed 07/12/[address] Jiménez. Uziel Rea reports steroid injection offered immediate reduction in pain, but unfortunately failed to offer any lasting benefit beyond this. Uziel Rea's medications, allergies, past medical, surgical, social and family histo clint were reviewed and updated as appropriate. CURRENT [...] diaphoresis, fever, malaise/fatigue and weight loss. HENT: Positive for hearing loss. Negative for congestion, ear discharge, ear pain, noseblee ds, sore throat and tinnitus. Eyes: Negative for blurred vision, double vision, photophobia, pain, discharge and redness. Glasses Respiratory: Negative for cough, hemoptysis, sputum production, shortness of breath, wheezi ng and stridor. Cardiovascular: Negative for chest pain, palpitations, orthopnea, claudication, leg swellin g and PND. Gastrointestinal: Negative for abdominal pain, blood in stool, constipation, diarrhea, hear tburn, melena, nausea and vomiting. Genitourinary: Negative for dysuria, flank pain, frequency, hematuria and urgency. Musculoskeletal: Positive for back pain. Negative for falls, joint pain, myalgias and neck pain. Skin: Negative for itching and rash. Neurological: Positive for tingling, tremors and weakness. Negative for dizziness, sensory change, speech change, focal weakness, seizures, loss of consciousness and headaches. Endo/Heme/Allergies: Negative for environmental allergies and polydipsia. Does not bruise/b leed easily. Psychiatric/Behavioral: Negative for depression, hallucinations, memory loss, substance abu se and suicidal ideas. The patient is not nervous/anxious and does not have insomnia. PHYSICAL EXAMINATION: There were no vitals taken for this visit. There is no height or weight on file to calculat e BMI. There were no vitals filed for this visit. GENERAL: The patient is well developed and [...] There are scars in the lum bar region. NEUROLOGIC: The patient is awake, alert, and oriented. He follows simple and complex commands. His speech is fluent. He comprehends speech well. 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 The cranial nerves appear grossly intact. Sensory exam: intact sensation to light touch in the upper and lower extremities. MOTOR EXAM: (5 IS NORMAL) * Indicates pain limited MUSCLE/ MOVEMENT: RIGHT LEFT Hip Flexion 5 5 Hip Extension 5 5 Knee Flexion 5 5 Knee Extension 4 4 Extensor Hallicus Longus 5 5 Ankle Dorsiflexion 4- 5 Plantarflexion 5 5 REFLEX: RIGHT LEFT PATELLAR 1+ Absent ACHILLES Absent Absent MUSCULOSKELETAL : Use of single point cane assistive device. Tenderness with palpation to bilateral SI joint, and pain noted over left sciatic notch DATABASE: Lumbar x-ray competed 05/24/17 was reviewed personally by me in detail during today's visit . I concur with the results as reported by the Radiologist. The imaging demonstrates: surgi akila hardware appears intact, L2-SI. ASSESSMENT: 1. Chronic bilateral low back pain with left-sided sciatica 2. Sacroiliac joint dysfunction of both sides 3. Left leg pain 4. History of lumbar fusion 5. Weakness of both legs 6. Lumbar radiculopathy - left L2 or L3 PLAN: 1. Today we discussed that some of Uziel Rea's symptoms of back pain may be related to sacroiliac joint dysfunction. We discussed that this pain may also radiates to the butto cks. We discussed treatments including SI joint injections. 2. Uziel Rea reports having left anterior thigh pain. We discussed differential diag nosis including but not limited to L2 and/or L3 Radiculopathy. He may also have permanent n erve injury resulting in chronic pain. Today we discussed that when we look at the healing progression of a nerve injury, we should look into the 18 months following the injury. Uziel Rea was advised that maximum nerve recovery is likely to be achieved at approximatel y 18 months. After 18 months the nerve is not likely able to improve or heal any further. Ramos was advised that there is a possibility of permanent nerve injury that could have occurred prior to completion of his surgery, given his physical presentation this is co nsistent with injury at approximate levels L2-L3. 2. Uziel Rea will have bilateral sacroiliac joint injections completed at the [facility] under fluoroscopy with Dr. Jiménez for treatment of his bilateral sacroiliac joint dys function. Uziel Rea was advised that steroid injections are considered a temporary t reatment to reduce symptoms, and that the injection will not fix or cure the underlying caus e of the pain. We discussed that the goal of the steroid injection is to minimize swelling a nd inflammation that may be causing symptoms of pain. We discussed that injections do not wo rk for everyone. We discussed that on average that injections may offer 4-6 months of reduce d pain, with 4 months being the average. We discussed that if the injection is helpful in pr oviding reduced pain, we may be able to consider repeat injection up to three times yearly. Uziel Rea was instructed to keep a detailed pain diary of the response to treatment and will return the pain diary to our office 2 weeks after the procedure. 4. Today we discussed other treatment considerations for his left thigh pain. In the futur e, with the goal of treating left L2-L3 radiculopathy may consider having L2-L3 TFESI. Uziel Rea had L2-S1 fusion completed 02/23/17. At this point we will plan to move forward with one procedure at time, therefore diagnostic ally we can evaluate the origin of his pain and symptoms more precisely. 5. Uziel Rea will be schedule to return to the clinic in 6 weeks to review his respo nse to SI joint injections. Uziel Rea has symptoms of both bilateral SI joint dysfunction and left L2 and/or L3 radiculopathy. At present his greatest pain is at bilateral SI joints, which we will treat at this time. He may also have a component of lumbar radiculopathy into the left leg. If r adicular symptoms persist after treatment of SI joint dysfunction, we may consider epidural steroid injection in the future to treat left sided radiculopathy. Uziel Rea has spondylolisthesis at L2-3 with persisting neural foraminal narrowing. It is possible that pathology at this level continues to cause left sided radicular symptom s. I spent 45 minutes in visit with Uziel Rea today with the majority of time spent cou nselling the patient on his diagnosis, options for his care, and coordinating his care. I, Logan Soto MD personally performed the services described in this documentation, as scribed by in my presence, Petra Prater RN and are both accurate and complete. Logan Soto MD - 06/01/2017 documented in this en counter Plan of Treatment Not on filedocumented as of this encounter Visit Diagnoses + + | Diagnosis | + + | Chronic bilateral low back pain with left-sided sciatica - Primary | + + | Sacroiliac joint dysfunction of both sides Disorders of sacrum | + + | Left leg pain Pain in limb | + + | History of lumbar fusion | + + | Weakness of both legs Other musculoskeletal symptoms referable to limbs | + + | Lumbar radiculopathy Thoracic or lumbosacral neuritis or radiculitis, unspecified | + + documented in this encounter"
--- OUTSIDE RECORDS SUMMARY | ~2020-07-14 | XMS | Encounter Summary ---
Demographics + + + | Address | [address] | | | [place] [address] | + + + | Home Phone [...] + | Author | [facility] | | | and [place] | [...] [place], [place] | | | | | [address] | | + + + + + | Mao Rea | ECON | Unknown | | + + + + + | Meredith Rea | ECON | Unknown | | + + + + + Care Team Providers + +------+ + | Care Machine Clothing Replacer Name | Role | Phone | + [...] | Changes | NEUROSURGERY [address] | Lazarus, Die Try Out Worker | | | | | [address] | | | | | | [place] | | | | | | [address] | | | | | | [phone] | | | +--------+ + + + [...]
--- OUTSIDE RECORDS SUMMARY | ~2020-07-14 | XMS | Encounter Summary ---
Demographics + + + | Address | [address] | | | [place] [address] | + + + | Home Phone | | + + + | Preferred Language | Unknown | + + + | Marital Status | | + + + | Anglican Affiliation | Unknown | + + + | Race | White | + + + | Ethnic Group | Not or | + + + Author + + + | Author | [facility] | | | and [place] | + + + | Organization | [facility] | | | and [...] [place] | | | | | [address] | | + + + + + | Mao Rea | ECON | Unknown | | + + + + + | Meredith Rea | ECON | Unknown | | + + + + + Care Team Providers + +------+ + | Care International Account Representative Name | Role | Phone | [...] | | | n | Parkinson's | [facility] | [place] | | | | | disease | MD Milo | Therapy [address] | | | | | ([facility]) [address] | [address] | | | | | Dmitry | [address] | [place], | | | | | ADMISSIONS SPECIALIST | [place], | [place] [address] | | | | | | [place] [address] | Phone: | | | | | | Phone: | [phone] | | | | | | [phone] | Fax: | | | | | | Fax: | [phone] | | | | | | [phone] | | + +--------+ + + + + Encounter Details +--------+---------+ + + + | Date | Type | Department | Care Team | Description | +--------+---------+ + + + | 07/01/ | [facility] [place] | Winnie Merino, | Cognitive | | 2020 | Visit | [facility] | Speech Pathologist | communication | | | | [address] | | disorder (Primary | | | | [place] | | Dx) | | | | [address] | | | | | | [phone] | | | +--------+---------+ + + + [...] documented as of this encounter Progress Notes Winine Merino, Speech Pathologist - 07/01/2020 2:15 PM PDTFormatting of this note ann t be different from the original. [facility] [address] [place] [address] Speech Therapy Daily Treatment Note Date: 07/01/2020 Patient Information Patient Name: Uziel Rea Date of : 1945 Age: 75 y.o. 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 Date of Onset: 04/18/2020 Referring Provider: Murphy Ordaz MD Rehab Precautions Office Visit from 04/18/2020 in [facility] Rehab Precautions Precautions Comments Depression/mental health Hx Rehab Learning Style [facility] Learning Style Patient's [employer] Learning Style reading [written information] Today's Treatment Start Time: 3 Stop time: 1501 Duration: 38 minutes Timed Treatment Codes: 15 minutes # of Speech Visits to Date: 11 Pain Assessment: Pain Scale Used: NUMERICPain Rating Pre Assessment: 6 Subjective: Patient and [...] the seq uence to use iphone to improve communication for multiple different functional tasks. Assessment: Demonstrating ability of new learning, carryover, and improved awareness of jm l phone use to improve communication. Demonstrated function ability to place 5 phone calls f rom contacts, and typing in numbers. Demonstrated functional ability to answer and hang up p corazon in 10/10 given opportunities. He also had carryover from use of training with the ipad to the iphone. Continued training needed to independently send e-mails from phone. Improved overall communication and cognitive function with new learning related to improved communica tion. Goals: Additional ADMISSIONS SPECIALIST Goals Goal 5: Patient will demonstrate functional use of phone to make phone calls and send e-reg ls independently in 8 of 10 given opportunities. Goal 5 Status: In progress Plan: train use of IPhone with spaced retrieval to improve communication. Electronically signed by: Winnie Merino Speech Pathologist, 07/01/2020 4:09 PM PDT Patient Name: Uziel Rea/: 1945/ doc umented in this encounter Plan of Treatment Not on filedocumented as of this encounter Visit Diagnoses + + | Diagnosis | + + | Cognitive communication disorder - Primary | + + documented in this encounter"
--- OUTSIDE RECORDS SUMMARY | ~2020-07-14 | XMS | Encounter Summary ---
Demographics + + + | Address | [address] | | | [place] [address] | + + + | Home Phone | | + + + | Preferred Language | Unknown | + + + | Marital Status | | + + + | Uatsdin Affiliation | Unknown | + + + | Race | White | + + + | Ethnic Group | Not or | + + + Author + + + | Author | [facility] | | | and [place] | + + + | Organization | [facility] | | | [...] [place], [place] | | | | | [address] | | + + + + + | Mao Rea | ECON | Unknown | | + + + + + | Meredith Rea | ECON | Unknown | | + + + + + Care Team Providers + +------+ + | Care Photographic Developer And Printer Name | Role | Phone | + [...] | Physical | Diagnoses | [place], | | | | Services | Therapy | Flat back | Ender | | | | Required | | syndrome | [facility] | | | | | | Lumbar | [address] | | | | | | stenosis | AVE | | | | | | with | [place] | | | | | | neurogenic | [address] | | | | | | claudication | Phone: | | | | | | S/P lumbar | [phone] | | | | | | fusion | Fax: | | | | | | | [phone] | | +--------+ + + + + + Reason for Visit + + + | Reason | Comments | + + + | Follow-up | 4 Week PO | + + + Encounter Details +--------+---------+ + + + | Date | Type | Department | Care Team | Description | +--------+---------+ + + + | 01/07/ | Office | [facility] | Ender Mora | Flat back syndrome | | 2015 | Visit | NEUROSURGERY [address] | VIRY [address] | (Primary Dx); Lumbar | | | | [address] [place], [place] | stenosis with | | | | [place], [place] | [id number] | neurogenic | | | | [address] | | claudication; S/P | | | | [phone] | | lumbar fusion | +--------+---------+ + + + Social History [...] + + + | Blood Pressure | 120/70 | 01/07/2015 12:06 PM | | | | | PDT | | + + + + + | Pulse | 74 | 01/07/2015 12:06 PM | | | | | PDT | | + + + + + | Temperature | - | - | | + + + + + | Respiratory Rate | 16 | 01/07/2015 12:06 PM | | | | | PDT | | + + + + + | Oxygen Saturation | - | - | | + + + + + | Inhaled Oxygen | - | - | | | Concentration | | | | + + + + + | Weight | 89.8 kg (198 lb) | 01/07/2015 12:06 PM | | | | | PDT | | + + + + + | Height | 175.3 cm (5' 9") | 01/07/2015 12:06 PM | | | | | PDT | | + + + + + | Body Mass Index | 29.24 | 01/07/2015 12:06 PM | | | | | PDT [...] Instructions Patient Instructions Ender Mora PA - 01/07/2015 12:36 PM PDTAt this time you can progress your activities allowing for lifting up to 15 pounds. In approximately 2 weeks U can begin the process of weaning your brace. In 2-3 weeks you can start with physical thera py. SPINE BRACE WEANING PROTOCOL (5 WEEKS) Below are instructions for weaning your brace. You can move through the weeks slower if yo u feel the need to do so, but the overall goal is to get you out of the brace slowly over th e next several weeks. WEEK 1 If you have been using your brace for activities like sleeping, showering, do not use the b race for these activities any longer but continue using it for everything else. WEEK 2 Stop wearing your brace for sitting and short distance walking. You should use the brace f or anything more involved. WEEK 3 Stop using the brace for medium distance walking. You can bend and twist your back but sti ll proceed slowly with these activities. WEEK 4 Stop using the brace for everything but the most difficult tasks. You should now be able to go on long walks and lift more weight as directed. Add more bending and twisting as tolera david. WEEK 5 Stop using the brace for daily use. I would encourage you to use the brace in the future f or activities that you know might aggravate your back or cause pain. You should still work to strengthen your back and use good technique when strip picker 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 Electronica lly signed by DOM Lo at 01/07/2015 12:37 PM PDT documented in this encounter Progress Notes Ender Mora PA - 01/07/2015 12:40 PM PDTFormatting of this note might be differen t from the original. DOM Sampson [address] [facility], [address] [place], [place] [address] FAX: NEUROSURGERY SURGICAL FOLLOW-UP CHIEF COMPLAINT: Chief Complaint Patient presents with Follow-up 4 Week PO HISTORY OF PRESENT ILLNESS: The patient is a 69 y.o. male that had a lumbar fusion around 4 weeks ago. He returns and overall is doing fairly well. The patient complains of intermi ttent pain in his leg which causes some weakness. He did fall the other day when he was wal bobbi into his house from the garage secondary to pain and weakness. This is in unpredictabl e. The patient has not been walking as much as possible. He is still taking pain medicatio ns at this point. The patient has had some issues with his surgical site. CURRENT MEDICATIONS: [...] every 4 hours as needed for Pain. 120 tablet 0 levothyroxine (SYNTHROID, LEVOTHROID) 75 MCG [...] drink alcohol. INTERIM PHYSICAL EXAMINATION: Blood pressure 120/70, pulse 74, resp. rate 16, height 1.753 m (5' [...] lower extremities. SENSORY EXAM: The sensory examination improved from the preoperative exam. RADIOGRAPHIC REVIEW: The patient s postoperative x-rays show stable instrumentation and alignment and were rev iewed with the patient today. There have been no interval changes since the immediate posto perative films. Complete fusion has not yet occurred, but this is normal and would not be e xpected at this time. ASSESSMENT: S/P lumbar fusion for: Encounter Diagnoses Name Primary? Flat back syndrome Yes Lumbar stenosis with neurogenic claudication S/P lumbar fusion Past Medical History Diagnosis Date Depression Arthritis rheumatoid Cancer (HCC) 2004 colon cancer Anxiety Hypothyroid Hard of hearing bilateral hearing aids PLAN: Overall, the patient is doing fairly well. Overall his symptoms have significantly improve d prior to surgery. He is actually happy with his progress at this time. His x-rays are st able. His seroma on his lateral incision has improved. His wounds appear to be healing wel l. I've instructed the patient and his on how to decrease some of the pain medications that he is using. I've also asked them to make an appointment with her warehouse loader some time after their next follow-up appointment to discuss how to deal with his RA medications. I increased the patient s activities slowly now allowing 15 pound lifting and also will b egin the process of brace weaning. I would like the patient to advance slowly with this pro cess and discussed this at length during today's visit. I would also like the patient to co ntinue with postoperative rehabilitation and to advance with therapy as tolerated. I am hoping to see improvement over the coming weeks to months and plan to continue to foll ow this patient. The patient will follow-up with me in around 8 weeks for re-evaluation. ELECTRONICALLY SIGNED BY: DOM Sampson, 01/07/2015 12:40 documented in th is encounter Plan of Treatment + + +--------+ + + | Name | Type | Priori | Associated Diagnoses | Order Schedule | | | | ty | | | + + +--------+ + + | OUTPATIENT PT | Outpatient | Routin | Flat back syndrome | Ordered: 01/07/2015 | | EXTERNAL | Referral | e | Lumbar stenosis | | | | | | with neurogenic | | | | | | claudication S/P | | | | | | lumbar fusion | | + + +--------+ + + [...] priors. FINDINGS: Again seen is stable | . CHRISTINA | | hardware for posterior fusion from L2 through L5 with interbody | [facility] | | hardware at these levels. [...] + | Alexis, Sen Results In - 03/07/2015 1:26 PM PDT [...] + + | KEVIN FARLEY | [address] | [place] | [phone] | | [facility] | | [address] | | | - IMAGING | | [...]
--- OUTSIDE RECORDS SUMMARY | ~2020-07-14 | XMS | Encounter Summary ---
Demographics + + + | Address | [address] | | | [place] [address] | + + + | Home Phone | | + + + | Preferred Language | Unknown | + + + | Marital Status | | + + + | Adventist Affiliation | Unknown | + + + | Race | White | + + + | Ethnic Group | Not or | + + + Author + + + | Author | [facility] | | | and [place] | + + + | Organization | [facility] | | | [...] [place], [place] | | | | | [address] | | + + + + + | Mao Rea | ECON | Unknown | | + + + + + | Meredith Rea | ECON | Unknown | | + + + + + Care Team Providers + +------+ + | Care Coke Worker Name | Role | Phone | [...] | Radiology | Diagnoses | Soto, | [facility] | | | | | Lumbalgia | Logan Rios MD | [address] | | | | | Lumbar | [address] | [place], | | | | | radiculopath | [address] | [place] | | | | | y Lumbar | [place], | [address] | | | | | spondylosis | [place] [address] | Phone: | | | | | Left leg | Phone: | [phone] | | | | | weakness | [phone] | Fax: | | | | | Lower | Fax: | [phone] | | | | | extremity | [phone] | | | | | | numbness [...] | Logan Rios MD | [address] | | | | | Lumbar | [address] | [place], | | | | | radiculopath | [address] | [place] | | | | | y Lumbar | [place], | [address] | | | | | spondylosis | [place] [address] | Phone: | | | | | Left leg | Phone: | [phone] | | | | | weakness | [phone] | Fax: | | | | | Lower | Fax: | [phone] | | | | | extremity | [phone] | | | | | | numbness [...] + + | 06/26/ | Hospital | [facility] | Logan Soto, | Lumbalgia; Lumbar | | 2013 | Encounter | [facility] [address] | MD [address] | radiculopathy; | | | | [place], | [place], [place] | Lumbar spondylosis; | | | | [place] [address] | [address] | Left leg weakness; | | | | [phone] | | Lower extremity | | | [...] documented as of this encounter Miscellaneous Notes Plan of Care - BRANDI MAURER - 07/08/2014 12:00 AM PDT documented in this encounter Plan of [...] + | MISCELLANEOUS LAB | | | [phone] | + +---------+ + + | MISCELANIOUS LAB | | | [phone] | + +---------+ + + documented in [...]
--- OUTSIDE RECORDS SUMMARY | ~2020-07-14 | XMS | Encounter Summary ---
Demographics + + + | Address | [address] | | | [place] [address] | + + + | Home Phone | | + + + | Preferred Language | Unknown | + + + | Marital Status | | + + + | Yarsani Affiliation | Unknown | + + + | Race | White | + + + | Ethnic Group | Not or | + + + Author + + + | Author | [facility] | | [...] [place], [place] | | | | | [address] | | + + + + + | Mao Rea | ECON | Unknown | | + + + + + | Meredith Rea | ECON | Unknown | | + + + + + Care Team Providers + +------+ + | Care Social Security Assessor Name | Role | Phone | + [...] | | | | | | | [place] ARTHDSIS | | | | | | [...] | | | | | | ION [place] INSJ | | | | | | [...] | | | | | | SEG [place] | | | | | | | ALLOGRAFT | | | | | | | FOR SPINE | | | | | | | SURGERY ONLY | | | | | | | MORSELIZED | | | | | | | OH REINSERT | | | | | | | SPINAL | | | | | | | FIXATION OH | | | | | | | REINSERT | | | | | | | SPINAL | | | | | | | FIXATION [place] | | | | | | | REINSERT | | | | | | | SPINAL | | | | | | | FIXATION OH | | | | | | | INSJ | | | | | | | BIOMCHN DEV | | | | | | | INTERVERTEBR | | | | | | | AL DSC SPC | | | | | | | W/ARTHRD OH | | | | | | | INSJ | | | | | | | BIOMCHN DEV | | | | | | | INTERVERTEBR | | | | | | | AL DSC SPC | | | | | | | W/ARTHRD OH | | | | | | | | | | | | | | LAMINEC/FACE | | | | | | | TECT/FORAMIN | | | | | | | ,EACH ADDNL | | | | | | | [place] | | | | | | | [...] + + + + | 02/23/ | Hospital | [facility] | Koby George MD | Gait abnormality | | 2017 - | Encounter | [facility] | [address] | (Primary Dx) | | | | [address] | [place] [address] | | | 02/26/ | | [place] [address] | [phone] | | | 2017 | | [phone] | | | +--------+ + + + [...] + + + | Blood Pressure | 152/86 | 02/26/2017 7:36 AM | | | | | PDT | | + + + + + | Pulse | 73 | 02/26/2017 7:36 AM | | | | | PDT | | + + + + + | Temperature | 36.6 C (97.9 F) | 02/26/2017 7:36 AM | | | | | PDT | | + + + + + | Respiratory Rate | 18 | 02/26/2017 7:36 AM | | | | | PDT | | + + + + + | Oxygen Saturation | 96% | 02/26/2017 7:36 AM | | | | | PDT | | + + + + + | Inhaled Oxygen | - | - | | | Concentration | | | | + + + + + | Weight | 84.8 kg (187 lb) | 02/23/2017 6:38 AM | | | | | PDT | | + + + + + | Height | 172.7 cm (5' 8") | 02/23/2017 6:38 AM | | | | | PDT | | + + + + + | Body Mass Index | 28.43 | 02/23/2017 6:38 AM | | | | | PDT [...] of this encounter Discharge Summaries Ender Mora PA-C - 02/26/2017 7:56 AM PDTFormatting of this note might be differ ent from the original. 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 Minimally invasive lumbar fusion via posterior approaches 2. Combined posterolateral and posterior interbody arthrodesis L5-S1 3. Posterior spinal instrumentation L2-Iliac with use of Precept 4. Posterolateral arthrodesis, L2, L3, L4 5. Placement of PEEK interbody spacer L5-S1 6. L5 laminectomy, L5-S1 facetectomy, L5 and S1 foraminotomy for decompression of L5 and S1 nerves and resection of large synovial cyst 7. Microsurgical technique with use of operating microscope 8. Stereotactic navigation for spinal instrumentation using Stealth/O-arm Forbes catheter insertion Hospital Course:post op the patient did well. He had sedation early on but this cleared. He had urinary retention despite being placed on Flowmax right after surgery. Fole was plac e after straight cath x 2 for 1000 and 1200 post void residule. H e worked well with PT and OT pain was controlled he was passing flatus. He has good support at home Condition on Discharge: Stable Discharge Medications: Discharge Medications Notice Some of the medications listed here do not show instructions, such as how often to take th e medication. Ask your doctor or nurse how to use these medications. Specifically ask about this and similar medications: Multiple Vitamins-Minerals (A THRU Z ADVANCED) TABS New Medications Details lactulose 10 g/15 mL solution Take 30 mLs by mouth 2 times daily. methocarbamol 750 mg tablet Take 1 tablet by mouth every 6 hours as needed for Muscle spasms. aka: ROBAXIN oxyCODONE 5 mg tablet Take 1-2 tablets by mouth every 4 hours as needed for Pain. aka: ROXICODONE tamsulosin 0.4 mg Caps Take 1 capsule by mouth daily (after breakfast). aka: FLOMAX Changed Medications Details [facility] OMEPRAZOLE 20.6 (20 Base) MG Cpdr Generic drug: Omeprazole Magnesium Daily What changed: - how to take this - when to take this Unchanged Medications Details A THRU Z ADVANCED Tabs nkwn! CALCIUM 1200 PO CHEW: Daily Cholecalciferol 2000 units Caps Take 2,000 Units by mouth 2 times daily. aka: VITAMIN D-[address] capsule Take 30 mg by mouth 2 times daily. aka: CYMBALTA fish oil 1,000 mg capsule Take 2,000 mg by mouth 2 times daily. gabapentin 600 MG tablet Take 800 mg by mouth 4 times daily. aka: NEURONTIN GLUCOSAMINE-CHONDROITIN DS 500-400 MG tablet Generic drug: glucosamine-chondroitin Take 1 tablet by mouth Daily. L-METHYLFOLATE PO Take 1 tablet by mouth Daily. levothyroxine 75 MCG tablet Take 75 mcg by mouth every morning (before breakfast). aka: SYNTHROID, LEVOTHROID lidocaine-prilocaine cream Apply 1 Application topically as needed. aka: EMLA lithium 300 mg capsule Take 300 mg by mouth Daily. medical marijuana Inhale 1-5 puffs into the lungs Twice daily as needed. aka: CANNABIS METHYLCOBALAMIN PO Take 1,000 mcg by mouth Daily. propranolol 20 MG tablet Take 20 mg by mouth 3 times daily. aka: INDERAL simvastatin 40 mg tablet Take 40 mg by mouth Daily. aka: ZOCOR sulfaSALAzine 500 MG EC tablet Take 1,000 mg by mouth Daily. aka: AZULFIDINE Turmeric Curcumin Caps Take 1 capsule by mouth Daily. vitamin C with bebeto hips 500 MG tablet Take 500 mg by mouth Daily. ziprasidone 80 MG capsule Take 80 mg by mouth 2 times daily (with breakfast & dinner). aka: GEODON Discontinued Medications leflunomide 10 mg tablet aka: ARAVA METHOTREXATE (PF) SC oxyCODONE-acetaminophen 10-325 mg per tablet aka: PERCOCET XELJANZ XR 11 mg tablet Generic drug: tofacitinib ; Current Discharge Medication List START taking these medications Medication Dose Last Dose Taken; lactulose 10 g/15 mL solution 30 mLs Take 30 mLs by mouth 2 times daily. Quantity: 240 mL Refills: 3 Start date: 02/26/2017 methocarbamol (ROBAXIN) 750 mg tablet 750 mg Take 1 tablet by mouth every 6 hours as needed for Muscle spasms. Quantity: 90 tablet Refills: 3 Start date: 02/26/2017 oxyCODONE (ROXICODONE) 5 mg tablet 5-10 mg Take 1-2 tablets by mouth every 4 hours as needed for Pain. Quantity: 120 tablet Refills: 0 Start date: 02/26/2017 tamsulosin (FLOMAX) 0.4 mg CAPS 0.4 mg Take 1 capsule by mouth daily (after breakfast). Quantity: 30 capsule Refills: 1 Start date: 02/26/2017 CONTINUE these medications which have NOT CHANGED Medication Dose Last Dose Taken; Ascorbic Acid (VITAMIN C WITH EBBETO HIPS) 500 MG tablet 500 mg Take 500 mg by mouth Daily. Calcium Carbonate-Vit D-Min (CALCIUM 1200 PO) CHEW: Daily Cholecalciferol (VITAMIN D-3) 2000 units CAPS 2,000 Units Take 2,000 Units by mouth 2 times daily. DULoxetine (CYMBALTA) [address] capsule 30 mg Take 30 mg by mouth 2 times daily. fish oil 1,000 mg capsule 2,000 mg Take 2,000 mg by mouth 2 times daily. gabapentin (NEURONTIN) 600 MG tablet 800 mg Take 800 mg by mouth 4 times daily. glucosamine-chondroitin (GLUCOSAMINE-CHONDROITIN DS) 500-400 MG tablet 1 tablet Take 1 tablet by mouth Daily. L-METHYLFOLATE PO 1 tablet Take 1 tablet by mouth Daily. levothyroxine (SYNTHROID, LEVOTHROID) 75 MCG tablet 75 mcg Take 75 mcg by mouth every morning (before breakfast). lidocaine-prilocaine (EMLA) cream 1 Application Apply 1 Application topically as needed. lithium 300 mg capsule 300 mg Take 300 mg by mouth Daily. medical marijuana (CANNABIS) inhalation 1-5 puffs Inhale 1-5 puffs into the lungs Twice daily as needed. METHYLCOBALAMIN PO 1,000 mcg Take 1,000 mcg by mouth Daily. Misc Natural Products (TURMERIC CURCUMIN) CAPS 1 capsule Take 1 capsule by mouth Daily. Multiple Vitamins-Minerals (A THRU Z ADVANCED) TABS Omeprazole Magnesium ([facility] OMEPRAZOLE) 20.6 (20 BASE) MG CPDR Daily propranolol (INDERAL) 20 MG tablet 20 mg Take 20 mg by mouth 3 times daily. simvastatin (ZOCOR) 40 mg tablet 40 mg Take 40 mg by mouth Daily. sulfaSALAzine (AZULFIDINE) 500 MG EC tablet 1,000 mg Take 1,000 mg by mouth Daily. ziprasidone (GEODON) 80 MG capsule 80 mg Take 80 mg by mouth 2 times daily (with breakfast & dinner). Follow-Up: Kitty Keen 4 week Next week with PCP regarding urinary retention documented in this encounter Discharge Instructions Instructions Ender Mora PA-C - 02/26/2017Discharge Instructions for Lumbar Fusio n You had a lumbar fusion. During this procedure, your doctor locked together (fused) some of the bones in your spine. This limits the movement of these bones to help relieve your pain. Here s what you need to know about home care following a spinal fusion. Activity Arrange your household to keep the items you need within reach. Remove electrical cords, throw rugs, and anything else that may cause you to fall. Use a walkeror handrails until your balance, flexibility, and strength improve. And re member to ask for help from others when you need it. Free up your hands so that you can use them to keep balance. Use a juan francisco pack, apron, or pockets to carry things. Be sure not to carry too much at once. Don t bend or twist at the waist, or raise your hands over your head for the first two weeks after your surgery. Don t lift anything heavier than 5 pounds for the first four weeks after surgery. Don t sit for more than30 to 45 minutes at a time. Take frequent short walks. They a re the [place] to your recovery. As your back feels better please gradually increase the distanc e you walk as discussed with your provider. Don t drive until your doctor says it s OK. And never drive while you are taking opi oid pain medication. Nap if you are tired, but don t stay in bed all day. Use chairs with arms. The arms make it easier for you to stand up and sit down. If you have not yet received instructions about physical therapy, ask your doctor about them. Incision care Check your incision daily for redness, tenderness, or drainage. Don t soak your wound in water (no hot tubs, bathtubs, swimming pools) until your doct or says it s OK. As long as you keep your incision dry you can shower as desired. After 5 days you may le t shower water run over the incision but do not submerse the incision under water until afte r you see your provider. Gently pat the incision dry. Don t rub it, or apply creams or lot ions. And if you feel unsteady while standing to shower, use a shower stool or chair. Other home care Use nonslip bath mats, grab bars, an elevated toilet seat, and a shower chair in your ba throom. Take your medication exactly as directed. Don t take nonsteroidal anti-inflammatory medications (NSAIDs), such as ibuprofen. The y may delay or prevent proper fusion of the spine. If you smoke, stop! This will be one of the most important things you can do to help you recover from surgery. Wear your back brace, if one was prescribed, as directed by your doctor. Follow-up Most patients will be seen approximately 4 weeks after surgery. Be sure to get your 1 mo nth post op x-rays prior to your 1 month post op appointment before your appointment. [phone] [employer] [place] [address]. All righ ts reserved. This information is not intended as a substitute for professional medical care. Always follow your healthcare professional's instructions. documented in this encounter Medications at Time of Discharge + + + +---------+ + + | Medication | Sig | Dispensed | Refills | Start | End Date | | | | | | Date | | + + + +---------+ + + | Ascorbic Acid | Take 500 mg by mouth | | 0 | 07/14/20 | | | (VITAMIN C WITH BEBETO | Daily. | | | 12 | [...] documented as of this encounter Progress Notes Kel Ivory, ELENA - 02/26/2017 2:21 PM PDTDischarge instructions reviewed with p syd and spouse, incision reviewed, MIGUEL A drain discontinued, forbes to stay in place until ap pointment with primary care provider, prescriptions previously filled by , all questions answered. Electronically signed by: Kel Doran RN 02/26/2017 14:25 Kel Ackerman RN - 02/26/2017 8:57 AM PDTPrescriptions given to , to fill at [facility], patient lives in [place], [place]. Electronically signed by: Kel Doran RN 02/26/2017 8:58 est, Ender Ramos PA-C - 02/25/2017 7:25 AM PDTFormatting of this note might be different from the o riginal. [facility] NEUROSURGERY PROGRESS NOTE PATIENT NAME: Uziel Rea AGE: 71 y.o. DATE OF SERVICE: 02/25/2017 7:25 S: The patient complains of back pain. The leg symptoms are improved. The patient has bee n working on mobilized well. The patient had a forbes placed but is passing flatus. patient was placed on Flomax at the t kane of surgery. Similar problem after his last back surgery O: CURRENT MEDICATIONS: Current Facility-Administered Medications Medication Dose Route Frequency Provider Last Rate Last Dose acetaminophen (TYLENOL) tablet 650 mg 650 mg Oral Q4H PRN Ender Mora PA-C 650 mg at 02/24/17 1253 aluminum & magnesium hydroxide-simethicone (MAALOX PLUS REGULAR STRENGTH) 200-200-20 mg /5 mL suspension 30 mL 30 mL Oral Q6H PRN Ender Mora PA-C atorvaSTATin (LIPITOR) tablet 20 mg 20 mg Oral Nightly Ender Mora PA-C 20 mg at 02/24/172101 bisacodyl (DULCOLAX) suppository 10 mg 10 mg Rectal Daily PRN CHELSY Lo calcium carbonate (TUMS) chewable tablet 1,000 mg 1,000 mg Oral Q2H PRN Ender Mora PA-C diphenhydrAMINE (BENADRYL) injection 12.5 mg 12.5 mg Intravenous Q4H PRN Ender Mora PA-C Or diphenhydrAMINE (BENADRYL) tablet 25 mg 25 mg Oral Q4H PRN Ender Mora PA-C Or diphenhydrAMINE (BENADRYL) 12.5 mg/5 mL liquid 25 mg 25 mg Oral Q4H PRN Ender Mora PA-C docusate sodium (COLACE) capsule 100 mg 100 mg Oral BID Ender Mora PA-C 10 0 mg at 02/24/172100 DULoxetine (CYMBALTA) DR capsule 30 mg 30 mg Oral BID Ender Mora PA-C 30 m g at 02/24/172100 enalaprilat (VASOTEC) injection 1.25 mg 1.25 mg Intravenous Q6H PRN Ender gill PA-C gabapentin (NEURONTIN) capsule 800 mg 800 mg Oral 4 times per day Ender Mora PA-C 800 mg at 02/25/17 0547 labetalol (TRANDATE) 5 mg/mL injection 10 mg 10 mg Intravenous Q1H PRN Ender Mora PA-C lactated ringers (LR) infusion Intravenous Continuous Koby George MD 100 mL/hr at 1820 100 mL at 02/23/17 1820 lactulose liquid 30 mL 30 mL Oral BID Ender Mora PA-C 30 mL at 02/24/17 21 05 levothyroxine (SYNTHROID, LEVOTHROID) tablet 75 mcg 75 mcg Oral QAM AC Ender Mora PA-C 75 mcg at 02/25/17 0639 lithium capsule 300 mg 300 mg Oral Daily Ender Mora PA-C 300 mg at 7 2100 magnesium hydroxide (MILK OF MAGNESIA) 400 mg/5 mL suspension 30 mL 30 mL Oral Nightly PRN Ender Mora PA-C menthol (HALLS COUGH DROP) lozenge 1 lozenge 1 lozenge Buccal Q2H PRN Ender sullivan PA-C methocarbamol (ROBAXIN) tablet 750 mg 750 mg Oral Q6H PRN Ender Mora PA-C 750 mg at 02/25/17 0318 morphine injection 2-4 mg 2-4 mg Intravenous Q1H PRN Ender oMra PA-C 4 mg at 02/24/17 0513 naloxone (NARCAN) 0.4 mg/mL injection 0.4 mg 0.4 mg Intravenous PRN Ender gill PA-C ondansetron (ZOFRAN ODT) disintegrating tablet 4 mg 4 mg Oral Q6H PRN Ender sullivan PA-C ondansetron (ZOFRAN) injection 4 mg 4 mg Intravenous Q6H PRN Ender Mora PA-C oxyCODONE (ROXICODONE) tablet 5-10 mg 5-10 mg Oral Q4H PRN Ender Mora PA-C 10 mg at 02/25/17 0318 pantoprazole (PROTONIX) DR tablet 40 mg 40 mg Oral QAM AC Ender Mora PA-C 40 mg at 02/25/17 0639 phenol (CHLORASEPTIC) spray 1-2 spray 1-2 spray Mouth/Throat Q3H PRN Ender wagner PA-C polyethylene glycol (MIRALAX) powder 17 g 17 g Oral Daily PRN CHELSY Lo prochlorperazine (COMPAZINE) tablet 5 mg 5 mg Oral Q6H PRN Ender Mora PA-C propranolol (INDERAL) tablet 20 mg 20 mg Oral TID Ender Mora PA-C 20 mg at 02/24/17 210 senna (SENOKOT) tablet 8.6 mg 8.6 mg Oral BID Edner Mora PA-C 8.6 mg at 210 sulfaSALAzine (AZULFIDINE) tablet 1,500 mg 1,500 mg Oral BID Ender Mora PA-C 1,500 mg at 02/24/17 210 tamsulosin (FLOMAX) capsule 0.4 mg 0.4 mg Oral Daily after breakfast Ender wagner PA-C 0.4 mg at 02/24/17 1021 ziprasidone (GEODON) capsule 80 mg 80 mg Oral BID Ender Mora PA-C 80 mg at 02/24/17 1750 ALLERGIES: No Known Allergies PHYSICAL EXAMINATION: Temp: [37.1 C (98.8 F)-38.8 C (101.9 F)] 37.3 C (99.1 F) Pulse: [75-114] 75 Resp: [18-24] 24 BP: (106-156)/(65-82) 136/78 mmHg Intake/Output Summary (Last 24 hours) at 02/25/17 0725 Last data filed at 02/25/17 0711 Gross per 24 hour Intake 2500 ml Output 4075 ml Net -1575 ml GENERAL: Uziel Rea is in no acute distress with unlabored respirations. HEENT: HEAD/FACE: EYES: Normocephalic and atraumatic. There are no areas of recent trauma. Normal sclerae without icterus. CHEST: Clear. HEART: Regular. EXTREMITIES: No edema or swelling. SCD's BACK: The back incisions are dress and a drain is in place with expected output. NEUROLOGICAL EXAM: MENTAL STATUS: The patient is awake, alert, and oriented. He follows simple and complex commands. He speech is fluent, his comprehends speech well, and his repeats well. He has no apparent deficits with short or penitentiary memory. MOTOR EXAM: Motor strength is stable SENSORY EXAM: Sensory exam is stable 24 HOUR LABS: All Component Based Labs (Last 10 results in the past 24 hours) None ASSESSMENT: NEUROSURGICAL DIAGNOSES: S/p lumbar fusion Urinary retention HOSPITAL/GENERAL DIAGNOSES: Past Medical History Diagnosis Date Depression Arthritis rheumatoid Cancer (HCC) 2003 colon cancer Anxiety Hypothyroid Hard of hearing bilateral hearing aids Rheumatoid arthritis (HCC) Tremor Sleep apnea no CPAP Lumbar radiculopathy Degenerative disc disease, lumbar PLAN: S/p lumbar fusion, Hospital day 2 - Neurologically stable and pain control is appropriate. - was sedated yesterday. Medications were adjusted. doing better - Mobilize, PT/OT - SCD's - Patient is having adequate bowel function without any concerns. They were counseled that full bowel function may not return for a few days - Drain output is as expected. Continue drain - Disp: hopefully home if mobilizing well. May need a short rehab stay.will monitor progre ss today Leave forbes in today. He may need to be DC with Forbes in place ELECTRONICALLY SIGNED BY: Ender Mora PA-C, 02/25/2017 7:25 Pedro Linder PA-C - 02/24/2017 7:25 AM PDT [facility] NEUROSURGERY PROGRESS NOTE PATIENT NAME: Uzielnolan Rea AGE: 71 y.o. DATE OF SERVICE: 02/24/2017 7:26 S: The patient is doing okay this AM. He complains of low back pain that feels like surgica l pain. His preop hip and thigh pain seem to be improving. He has been walking in the room, his legs feel strong. Before surgery he felt unbalanced. Voiding well. No flatus, no BM. O: CURRENT MEDICATIONS: Current Facility-Administered Medications Medication Dose Route Frequency Provider Last Rate Last Dose acetaminophen (TYLENOL) tablet 650 mg 650 mg Oral Q4H PRN Ender Mora PA-C aluminum & magnesium hydroxide-simethicone (MAALOX PLUS REGULAR STRENGTH) 200-200-20 mg /5 mL suspension 30 mL 30 mL Oral Q6H PRN Ender Mora PA-C atorvaSTATin (LIPITOR) tablet 20 mg 20 mg Oral Nightly Ender Mora PA-C 20 mg at 02/23/172003 bisacodyl (DULCOLAX) suppository 10 mg 10 mg Rectal Daily PRN CHELSY Lo calcium carbonate (TUMS) chewable tablet 1,000 mg 1,000 mg Oral Q2H PRN Ender Mora PA-C diphenhydrAMINE (BENADRYL) injection 12.5 mg 12.5 mg Intravenous Q4H PRN Ender Mora PA-C Or diphenhydrAMINE (BENADRYL) tablet 25 mg 25 mg Oral Q4H PRN Ender Mora PA-C Or diphenhydrAMINE (BENADRYL) 12.5 mg/5 mL liquid 25 mg 25 mg Oral Q4H PRN Ender Mora PA-C docusate sodium (COLACE) capsule 100 mg 100 mg Oral BID Ender Mora PA-C 10 0 mg at 02/23/172004 DULoxetine (CYMBALTA) DR capsule 30 mg 30 mg Oral BID Ender Mora PA-C 30 m g at 02/23/172004 enalaprilat (VASOTEC) injection 1.25 mg 1.25 mg Intravenous Q6H PRN Ender gill PA-C gabapentin (NEURONTIN) capsule 800 mg 800 mg Oral 4 times per day Ender Mora PA-C 800 mg at 02/24/17 0630 labetalol (TRANDATE) 5 mg/mL injection 10 mg 10 mg Intravenous Q1H PRN Ender Mora PA-C lactated ringers (LR) infusion Intravenous Continuous Koby George MD 100 mL/hr at 1820 100 mL at 02/23/17 1820 lactulose liquid 30 mL 30 mL Oral BID Ender Mora PA-C 30 mL at 02/23/17 20 07 levothyroxine (SYNTHROID, LEVOTHROID) tablet 75 mcg 75 mcg Oral QAM Ender Mora PA-C 75 mcg at 02/24/17 0631 lithium capsule 300 mg 300 mg Oral Daily Ender Mora PA-C 300 mg at 2004 [START ON 02/25/2017] magnesium hydroxide (MILK OF MAGNESIA) 400 mg/5 mL suspension 30 m L 30 mL Oral Nightly PRN Ender Mora PA-C menthol (HALLS COUGH DROP) lozenge 1 lozenge 1 lozenge Buccal Q2H PRN Ender sullivan PA-C morphine injection 2-4 mg 2-4 mg Intravenous Q1H PRN Ender Mora PA-C 4 mg at 02/24/17 0513 ondansetron (ZOFRAN ODT) disintegrating tablet 4 mg 4 mg Oral Q6H PRN Ender sullivan PA-C ondansetron (ZOFRAN) injection 4 mg 4 mg Intravenous Q6H PRN Ender Mora PA-C oxyCODONE (ROXICODONE) tablet 5-20 mg 5-20 mg Oral Q4H PRN Ender Mora PA-C 20 mg at 02/24/17 0630 pantoprazole (PROTONIX) DR tablet 40 mg 40 mg Oral QAM Ender Mora PA-C 40 mg at 02/24/17 0631 phenol (CHLORASEPTIC) spray 1-2 spray 1-2 spray Mouth/Throat Q3H PRN Ender wagner PA-C polyethylene glycol (MIRALAX) powder 17 g 17 g Oral Daily PRN CHELSY Lo prochlorperazine (COMPAZINE) tablet 5 mg 5 mg Oral Q6H PRN Ender Mora PA-C propranolol (INDERAL) tablet 20 mg 20 mg Oral TID Ender Mora PA-C 20 mg at 02/23/172003 senna (SENOKOT) tablet 8.6 mg 8.6 mg Oral BID Ender Mora PA-C 8.6 mg at 2013 sulfaSALAzine (AZULFIDINE) tablet 1,500 mg 1,500 mg Oral BID Ender Mora PA-C 1,500 mg at 02/23/172004 tamsulosin (FLOMAX) capsule 0.4 mg 0.4 mg Oral Daily after breakfast Ender wagner PA-C 0.4 mg at 02/23/17 1453 tiZANidine (ZANAFLEX) tablet 4 mg 4 mg Oral Q6H PRN Ender Mora PA-C 4 mg a t 02/23/17 1453 ziprasidone (GEODON) capsule 80 mg 80 mg Oral BID WC Ender Mora PA-C 80 mg at 02/23/17 1820 ALLERGIES: No Known Allergies PHYSICAL EXAMINATION: Temp: [36.4 C (97.5 F)-37.6 C (99.7 F)] 37.6 C (99.7 F) Pulse: [69-105] 92 Resp: [5-26] 18 BP: (105-157)/(57-89) 139/79 mmHg Intake/Output Summary (Last 24 hours) at 02/24/17 0726 Last data filed at 02/24/17 0635 Gross per 24 hour Intake 4532 ml Output 7765 ml Net -3233 ml GENERAL: Uziel Rea is in no acute distress with unlabored respirations. HEENT: HEAD/FACE: EYES: Normocephalic and atraumatic. There are no areas of recent trauma. Normal sclerae without icterus. CHEST: Clear. HEART: Regular. EXTREMITIES: No edema or swelling. SCD's BACK: The back incisions are dressed appropriately. Drain is putting out serosanguinous flu id. 70cc overnight. NEUROLOGICAL EXAM: MENTAL STATUS: The patient is awake, alert, and oriented. He follows simple and complex commands. He speech is fluent, his comprehends speech well, and his repeats well. 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 MOTOR EXAM: Motor strength is stable SENSORY EXAM: Sensory exam is stable 24 HOUR LABS: All Component Based Labs (Last 10 results in the past 24 hours) None ASSESSMENT: NEUROSURGICAL DIAGNOSES: S/p lumbar fusion HOSPITAL/GENERAL DIAGNOSES: Past Medical History Diagnosis Date Depression Arthritis rheumatoid Cancer (HCC) 2003 colon cancer Anxiety Hypothyroid Hard of hearing bilateral hearing aids Rheumatoid arthritis (HCC) Tremor Sleep apnea no CPAP Lumbar radiculopathy Degenerative disc disease, lumbar PLAN: S/p lumbar fusion, Hospital day 1 - Neurologically stable. Pain control is adequate. - Use oxycodone Q4hrs for continual pain coverage. Use tizanidine in the interim as needed. - Medically stable - Mobilize, PT/OT - SCD's - Working on BM/bowel function. Encouraged activity and medications to assist - Drain output is as expected. Continue drain. - Disp: Home once patient is improving. ELECTRONICALLY SIGNED BY: Pedro Riggins PA-C, 02/24/2017 7:26 documented in this encounter H&P Notes Ender Mora PA-C - 02/23/2017 7:54 AM PDTSURGICAL INTERIM HISTORY & PHYSICAL UPD ATE Pt. Name/Age/: Uziel Rea 71 y.o. 1945 Date of admission: 02/23/2017 The current H&P was reviewed. The patient was reexamined. Re-evaluation of the patient co nfirms the necessity for the scheduled procedure. No change has occurred in the patient s condition since the H&P was completed less than 30 days ago. VERIFICATION OF CONSENT (PARQ) The patient and spouse was counseled regarding the procedure, its indications, risks, poten tial complications and alternatives. Any questions were answered. Consent was obtained. Electronically signed by: Ender Mora PA-C, 02/23/2017 7:54 [facility] documented in this encounter Nursing Notes Ana Coronado RN - 02/23/2017 10:31 AM PDTFamily notified of progress of procedure at 1 030 documented in this encounter Miscellaneous Notes Plan of Care - Regi Messina MSW - 02/26/2017 1:44 PM PDTProblem: Discharge Planning Goal: Patient will be discharged in a safe manner Outcome: Improving This binder caser spoke with PT/OT who states that patient may benefit from a short term SN F for rehab prior to returning home. They did note that he did well today during therapies b ut they still are recommending a SNF for the best recovery. This CM spoke with patient and his regarding this. Patient wants to discharge home, no ting that he has chronic depression and going to a SNF would really trigger his depression. He does not feel that a SNF is in his best interest. His states that she feels capable of taking care of him at home and has family and friends who would be able to help him at [facility]. They have all DME needed at home and patient states that he is aware of his precautions. will call his PCP on Tuesday to schedule a appointment for follow up--especially for hi s forbes cath. Plan for patient to discharge home. [facility] does not have HH so this is not a option for this patient. Electronically signed by: VAMSHI Menon 02/26/2017 13:44 lan of Care - Yoandy Coy, PT - 02/26/2017 11:55 AM PDT Physical Therapy Plan of Care Treatment and Discharge Note Summary: Patient seen for follow-up PT session of her progression of functional mobility, gait, safety, and transfers. A short reporting he is having a much better day today and is getting around better and feeling better all around. commenting the patient BP and vit als are now stable he is feeling good enough to go home. also commenting that he did h ave a little bit of a fever last night, still has a MIGUEL A drain, and now has a Forbes catheter i n place. After practicing gait and functional ability with PT as noted below, PT recommendi william that patient could benefit from additional time at custodial facility for additiona l days of rehabilitation to maximize his functional outcomes based on the fact that he is do ing much better today than he has done during the rest of his stay here. OT reiterating dorian paz has OT witnessed patient walking in the [place]omas with PT. PT and OT both mentioned this to ca se management and to patient and advocating for him to do more aggressive therapies rat her than go home with no home health, as it is not available where he lives. Patient and wi fe to speak with binder caser today regarding their decision. Patient handed off to nursing after treatment session Physical Therapy Discharge Recommendations are: Recommended discharge disposition: home with assist, custodial facility ([facility]) Post discharge physical therapy recommendation: will benefit from structured setting, ongo ing low intensity therapy, family involved/supportive Equipment Recommendations: 2 wheeled walker (FWW), shower chair, seat riser Planned Interventions: balance training, bed mobility training, gait training, orthotic fi tting/training, patient/family education, stair training, strengthening, transfer training Recommended Frequency: daily Patient Status/Goals: Reflects last filed data and may be from multiple contributors. Gait Contact-guard assist for safety, decreased strength, see brace precautions. Verbal cues re quired to maintain relaxed shoulders with upright posture. Level of [place]: contact guard assist, verbal cues required Assistive Device: 2 wheeled walker (FWW) Distance (feet): 150 Gait Pattern Analysis: 2-point gait Gait Deviations: олег decreased, step length decreased, stride length decreased, swing-t o-stance ratio decreased, weight-shifting ability decreased Stairs Number of Stairs: 4 Handrail Location: left side (ascending) Level of [place]: stand by assist Assistive Device: 1 rail Technique Used: step to step (ascending), step to step (descending) Safety Issues: balance decreased during turns Impairments: pain, strength decreased, impaired balance Transfers slow, cautious mobility. Sit-Stand, Level of [place]: verbal cues required, contact guard assist Stand-Sit, Level of [place]: verbal cues required, contact guard assist [id number], Assistive Device: 2 wheeled walker (FWW) Safety Issues: step length decreased, weight-shifting ability decreased Impairments: ROM decreased, strength decreased, pain Bed Mobility cues for use of bed controls to lower foot of bed prior to attempt to get up. Assistive Device: bed rails, HOB elevated Roll Left, Level of [place]: verbal cues required, stand by assist Scoot/Bridge, Level of [place]: verbal cues required Supine to Sit, Level of [place]: minimal assist (75% patient effort), verbal cues requ ired Sit to Supine, Level of [place]: stand by assist, verbal cues required Safety Issues: decreased use of arms for pushing/pulling, decreased use of legs for bridgin g/pushing Impairments: ROM decreased, strength decreased, pain Balance fair Functional Endurance fair+ ROM L LE ROM: Within functional limits R LE ROM: Within functional limits Strength L LE Strength: Grossly 4/5 R LE Strength: Grossly 4/5 Trunk strength: Not tested due to lumbar surgery. PT Goal Review Date Most Recent Value STG Review Date 02/24/17 at 02/23/2017 1634 [id number] Goal Most Recent Value STG Status continued/progressing at 02/26/2017 1130 STG [place] Level modified independent at 02/23/2017 1634 STG Assistive Device none at 02/23/2017 1634 [id number] Goal Most Recent Value STG Status continued/progressing at 02/26/2017 1130 STG [place] Level modified independent at 02/23/2017 1634 STG Assistive Device 2 wheeled walker (FWW) at 02/23/2017 1634 Gait Goal Most Recent Value STG Status continued/progressing at 02/26/2017 1130 STG [place] Level modified independent at 02/23/2017 1634 STG Assistive Device 2 wheeled walker (FWW) at 02/23/2017 1634 STG Distance (feet) 150 feet at 02/23/2017 1634 Stair Goal Most Recent Value STG Status continued/progressing at 02/26/2017 1130 STG [place] Level modified independent at 02/23/2017 1634 STG Assistive Device 1 rail at 02/23/2017 1634 STG Number of Stairs 4 at 02/23/2017 1634 Electronically signed by: Yoandy Watson PT, 02/26/2017 17:32 lan of Care - Karolina Flynn COTA - 10:50 AM PDT Problem: Patient Care Overview (Adult) Goal: Care Team Goals & Evaluation PROBLEM-RELATED GOALS: 1. Uziel will rate pain 3/10 by 02/27/17 2. Uziel will have a BM by 02/26/17. 3. Uziel will be able to void w/PVR <300 by 02/27/17 4. Uziel will return to baseline or improve on his muscle strength to all extremities by 01/30 07/17. 5. Uziel will tolerate a regular diet by 02/25/17. 6. Patient to be modified independent with ambulation in room and hallway 02/27/17. 7. Pt will be set-up/SBA for his ADLs & functional mobility w/C-Bracing precautions. By 01/31 8. Uziel will meet 75% of predicted incentive spirometer goal of 2350 ml by 02/28/17. STRATEGY TO ACHIEVE GOALS: 1. Assess pain every 4 hrs, offer snacks, cluster care, dim lighting, and reassess pain per policy. 2. Listen BT to all quadrants, offer fluids, encourage ambulation, and offer PRN stool soft eners. 3. Offer urinal/bedside commode, monitor urine output, promote an elimination schedule and bladder scan per policy. Maintain forbes patency after insertion. When forbes removed continue w/bladder scans and straight caths per MD order 4.Assess for muscle strength and sensation every 4 hrs and notify MD for any concerns. 5. Assess for swallowing difficulties, monitor for n/v, and advance diet as tolerated. 6. Patient to participate in PT activities 7. Patient will set up in bedside chair for all meals. - Active participation in OT sessions. - Instruct patient how use of Incentive Spirometry and deep breath and cough. Nursing and R espiratory to work together to have patient use every hour while awake. Respiratory to monit or progress 4 times daily until 75% goal met then turn over to nursing. Occupational Therapy Plan of Care Treatment Note Summary: Patient was seen for ADL training with present. Patient performed UBD while supine with rolling side to side with cues and Moderate A for doffing and donning clean katherine t. Patient sat EOB for LBD using AE after demonstration. Moderate cuing was needed with use of AE as he demonstrated some difficulty with planning and sequencing; Min A with applying c atheter through pantleg. was present throughout session but may benefit from performing more of the care herself with coaching to ensure patient safety at home. Rehab SNF may be i ndicated, case management consulted. Patient returned to supine, call light in reach. Occupational Therapy Discharge Recommendations are: Recommended discharge disposition: custodial facility Post discharge occupational therapy recommendation: minimum 5 therapy days/week, family in volved/supportive, pt is motivated participant, will benefit from structured setting, ongoin g low intensity therapy Equipment Recommendations: (TBd) Planned Interventions:ADL retraining, bed mobility training, orthotic fitting/training, tra nsfer training Recommended Frequency: (2-3 addt'l OT visits) Patient Status/Goals: Reflects last filed data and may be from multiple contributors. ADLs present for training. Verbally reviewed bathing procedure for C bracing back precautio ns. UBD in bed, LBD EOB with AE. From supine, rolling R/L. Educated on technique with LSO. UB Dressing, Level of [place]: moderate assist (50% patient effort), verbal cues requi red UB Dressing Assess/Train, Position: other (see comments) UB Dressing Assess/Train, Impairments: muscle tone abnormal, decreased flexibility, strengt h decreased, motor control impaired, pain After demonstration with AE, patient required moderate cuing and Min A for management of ca theter. present for teaching. LB Dressing, Level of [place]: minimal assist (75% patient effort), verbal cues requir ed, set up required Assistive Device: none LB Dressing Assess/Train, Position: sitting, supported standing LB Dressing Assess/Train, Impairments: pain, ROM decreased, strength decreased Bed Mobility VC for log roll technique for C brace precautions Assistive Device: bed rails, HOB elevated Roll Left, Level of [place]: verbal cues required, stand by assist Scoot/Bridge, Level of [place]: verbal cues required Supine to Sit, Level of [place]: minimal assist (75% patient effort), verbal cues requ ired Sit to Supine, Level of [place]: stand by assist, verbal cues required Safety Issues: decreased use of arms for pushing/pulling, decreased use of legs for bridgin g/pushing Impairments: ROM decreased, strength decreased, pain Transfers Sit-Stand, Level of [place]: verbal cues required, contact guard assist Stand-Sit, Level of [place]: verbal cues required, contact guard assist [id number], Assistive Device: 2 wheeled walker (FWW) Safety Issues: step length decreased, weight-shifting ability decreased (bumping into objec ts) Impairments: ROM decreased, strength decreased, pain OT Goal Review Date Most Recent Value STG Review Date 02/28/17 at 02/24/2017 0942 UB Dressing Goal Most Recent Value STG Status continued/progressing at 02/26/2017 1211 STG [place] Level set up required at 02/24/2017 0942 LB Dressing Goal Most Recent Value STG Status continued/progressing at 02/26/2017 1211 STG [place] Level set up required at 02/24/2017 0942 Toileting Goal Most Recent Value STG Status not addressed at 02/26/2017 1211 STG [place] Level supervised at 02/24/2017 0942 Toilet Transfer Goal Most Recent Value STG Status not addressed at 02/26/2017 1211 STG [place] Level supervised at 02/24/2017 0942 Tub/Shower Transfer Goal Most Recent Value Tub/Shower Type tub at 02/24/2017 0942 STG Status not addressed at 02/26/2017 1211 STG [place] Level stand by assist at 02/24/2017 0942 Additional Goals #1 OT Most Recent Value STG Status continued/progressing at 02/26/2017 1211 STG Family/caregiver to demo good understanding of C-Bracing precautions. at 02/25/20 17 0942 Electronically signed by: ENRICO Manzanares, 02/26/2017 13:36 lan of Care - Ri Kel Lee RN - 02/25/2017 6:13 PM PDTProblem: Patient Care Overview (Adult) Goal: Care Team Goals & Evaluation PROBLEM-RELATED GOALS: 1. Uziel will rate pain 3/10 by 02/27/17 2. Uziel will have a BM by 02/26/17. 3. Uziel will be able to void w/PVR <300 by 02/27/17 4. Zuiel will return to baseline or improve on his muscle strength to all extremities by 01/30 07/17. 5. Uziel will tolerate a regular diet by 02/25/17. 6. Patient to be modified independent with ambulation in room and hallway 02/27/17. 7. Pt will be set-up/SBA for his ADLs & functional mobility w/C-Bracing precautions. By 01/31 8. Uziel will meet 75% of predicted incentive spirometer goal of 2350 ml by 02/28/17. STRATEGY TO ACHIEVE GOALS: 1. Assess pain every 4 hrs, offer snacks, cluster care, dim lighting, and reassess pain per policy. 2. Listen BT to all quadrants, offer fluids, encourage ambulation, and offer PRN stool soft eners. 3. Offer urinal/bedside commode, monitor urine output, promote an elimination schedule and bladder scan per policy. Maintain forbes patency after insertion. When forbes removed continue w/bladder scans and straight caths per MD order 4.Assess for muscle strength and sensation every 4 hrs and notify MD for any concerns. 5. Assess for swallowing difficulties, monitor for n/v, and advance diet as tolerated. 6. Patient to participate in PT activities 7. Patient will set up in bedside chair for all meals. - Active participation in OT sessions. - Instruct patient how use of Incentive Spirometry and deep breath and cough. Nursing and R espiratory to work together to have patient use every hour while awake. Respiratory to monit or progress 4 times daily until 75% goal met then turn over to nursing. Outcome: Improving Goal Evaluation: Uziel's pain has been well managed with PO pain medications Uziel tolerated meals well without difficulty Uziel voids without difficulty no BM today Uziel participated in therapies Calls appropriately and makes needs known lan of Angeles Boss, OT - 02/25/2017 5:04 PM PDTFormatting of this note might be differe nt from the original. Problem: Patient Care Overview (Adult) Goal: Care Team Goals & Evaluation PROBLEM-RELATED GOALS: 1. Uziel will rate pain 3/10 by 02/27/17 2. Uziel will have a BM by 02/26/17. 3. Uziel will be able to void w/PVR <300 by 02/27/17 4. Uziel will return to baseline or improve on his muscle strength to all extremities by 01/30 07/17. 5. Uziel will tolerate a regular diet by 02/25/17. 6. Patient to be modified independent with ambulation in room and hallway 02/27/17. 7. Pt will be set-up/SBA for his ADLs & functional mobility w/C-Bracing precautions. By 01/31 8. Uziel will meet 75% of predicted incentive spirometer goal of 2350 ml by 02/28/17. STRATEGY TO ACHIEVE GOALS: 1. Assess pain every 4 hrs, offer snacks, cluster care, dim lighting, and reassess pain per policy. 2. Listen BT to all quadrants, offer fluids, encourage ambulation, and offer PRN stool soft eners. 3. Offer urinal/bedside commode, monitor urine output, promote an elimination schedule and bladder scan per policy. Maintain forbes patency after insertion. When forbes removed continue w/bladder scans and straight caths per MD order 4.Assess for muscle strength and sensation every 4 hrs and notify MD for any concerns. 5. Assess for swallowing difficulties, monitor for n/v, and advance diet as tolerated. 6. Patient to participate in PT activities 7. Patient will set up in bedside chair for all meals. - Active participation in OT sessions. - Instruct patient how use of Incentive Spirometry and deep breath and cough. Nursing and R espiratory to work together to have patient use every hour while awake. Respiratory to monit or progress 4 times daily until 75% goal met then turn over to nursing. Outcome: Unchanged Occupational Therapy Plan of Care Treatment Note Summary: Pt seen for ADLs, functional mobility, family education. Pt demonstrating diffic ulty w/ bed mobility requiring moderate assist, moving slowly. Ambulating w/ slow gait, shor tened stride, bumping into objects on @ least 5 occasions R & L side. Decreased scanning of environment. Initiated UB dressing education for , completed w/ max assist. Pt respon se times are slow as well. Discussed d/c plan w/ pt and his . OT communicated concern that the pt is requiring more assist than she may be able to provide and that a Rehab SNF [facility] may be indicated. Pt is agreeable to this if necessary, he does not want to be a burden to his . Will monitor status, consult w/ Case Mgmt tomorrow. Further family training/e ducation is necessary for C-Bracing precautions. Occupational Therapy Discharge Recommendations are: Recommended discharge disposition: custodial facility Post discharge occupational therapy recommendation: minimum 5 therapy days/week, family in volved/supportive, pt is motivated participant, will benefit from structured setting, ongoin g low intensity therapy Equipment Recommendations: (TBd) Planned Interventions:ADL retraining, bed mobility training, orthotic fitting/training, tra nsfer training Recommended Frequency: (2-3 addt'l OT visits) Patient Status/Goals: Reflects last filed data and may be from multiple contributors. ADLs From supine, rolling R/L. Educated on technique w/ LSO. UB Dressing, Level of [place]: maximal assist (25% patient effort), verbal cues requir ed, tactile cues required UB Dressing Assess/Train, Impairments: muscle tone abnormal, decreased flexibility, strengt h decreased, motor control impaired, coordination impaired, pain Functional Endurance Poor Cognitive Mood/Behavior: flat affect Follows Commands/Answers Questions: 75% of the time, needs repetition, needs increased time , needs cueing, able to follow single-step instructions Personal Safety: mild impairment, decreased insight to deficits Bed Mobility VC for log roll technique for C brace precautions Assistive Device: bed rails, HOB elevated Roll Left, Level of [place]: moderate assist (50% patient effort), verbal cues require d, set up required, tactile cues required Scoot/Bridge, Level of [place]: verbal cues required Supine to Sit, Level of [place]: moderate assist (50% patient effort), tactile cues re quired, verbal cues required, set up required Sit to Supine, Level of [place]: minimal assist (75% patient effort), verbal cues requ ired, set up required, tactile cues required Safety Issues: decreased use of legs for bridging/pushing, decreased use of arms for pushin g/pulling, cognitive deficits limit understanding Impairments: decreased flexibility, pain, strength decreased, ROM decreased, impaired sukhi ce, motor control impaired Transfers Sit-Stand, Level of [place]: contact guard assist, verbal cues required Stand-Sit, Level of [place]: contact guard assist, verbal cues required [id number]-Lac, Assistive Device: 2 wheeled walker (FWW) Safety Issues: step length decreased, weight-shifting ability decreased (bumping into objec ts) Impairments: decreased flexibility, strength decreased, impaired balance, pain, motor contr ol impaired OT Goal Review Date Most Recent Value STG Review Date 02/28/17 at 02/24/2017 0942 UB Dressing Goal Most Recent Value STG Status continued/progressing, not addressed at 02/25/20171814 STG [place] Level set up required at 02/24/2017 0942 LB Dressing Goal Most Recent Value STG Status not addressed at 02/25/2017 181 STG [place] Level set up required at 02/24/2017 0942 Toileting Goal Most Recent Value STG Status not addressed at 02/25/2017 1815 STG [place] Level supervised at 02/24/2017 0942 Toilet Transfer Goal Most Recent Value STG Status not addressed at 02/25/2017 1815 STG [place] Level supervised at 02/24/2017 0942 Tub/Shower Transfer Goal Most Recent Value Tub/Shower Type tub at 02/24/2017 0942 STG Status not addressed at 02/25/2017 1815 STG [place] Level stand by assist at 02/24/2017 0942 Additional Goals #1 OT Most Recent Value STG Status continued/progressing at 02/25/2017 1815 STG Family/caregiver to demo good understanding of C-Bracing precautions. at 02/25/20 17 0942 Electronically signed by: Angeles Martin, OT, 02/25/2017 18:19 lan of Care - B etts, Sohail Gill, DEPOT AGENT - 02/25/2017 11:45 AM PDTProblem: Patient Care Overview (Adult) Goal: Care Team Goals & Evaluation PROBLEM-RELATED GOALS: 1. Uziel will rate pain 3/10 by 02/27/17 2. Uziel will have a BM by 02/26/17. 3. Uziel will be able to void w/PVR <300 by 02/27/17 4. Uziel will return to baseline or improve on his muscle strength to all extremities by 01/30 07/17. 5. Uziel will tolerate a regular diet by 02/25/17. 6. Patient to be modified independent with ambulation in room and hallway 02/27/17. 7. Pt will be set-up/SBA for his ADLs & functional mobility w/C-Bracing precautions. By 01/31 8. Uziel will meet 75% of predicted incentive spirometer goal of 2350 ml by 02/28/17. STRATEGY TO ACHIEVE GOALS: 1. Assess pain every 4 hrs, offer snacks, cluster care, dim lighting, and reassess pain per policy. 2. Listen BT to all quadrants, offer fluids, encourage ambulation, and offer PRN stool soft eners. 3. Offer urinal/bedside commode, monitor urine output, promote an elimination schedule and bladder scan per policy. Maintain forbes patency after insertion. When forbes removed continue w/bladder scans and straight caths per MD order 4.Assess for muscle strength and sensation every 4 hrs and notify MD for any concerns. 5. Assess for swallowing difficulties, monitor for n/v, and advance diet as tolerated. 6. Patient to participate in PT activities 7. Patient will set up in bedside chair for all meals. - Active participation in OT sessions. - Instruct patient how use of Incentive Spirometry and deep breath and cough. Nursing and R espiratory to work together to have patient use every hour while awake. Respiratory to monit or progress 4 times daily until 75% goal met then turn over to nursing. Outcome: Improving Goal Evaluation: BS clear, SpO2 95% on RA, works well with and understands use of IS Patient achieving 2400 of IS Predicted Level (mL) : 2350 DC for continued use on own. lan of Care - Yoandy Marshall, PT - 02/25/2017 10:33 AM PDTFormatting of this note might be different fr om the original. Problem: Patient Care Overview (Adult) Goal: Care Team Goals & Evaluation PROBLEM-RELATED GOALS: 1. Uziel will rate pain 3/10 by 02/27/17 2. Uziel will have a BM by 02/26/17. 3. Uziel will be able to void w/PVR <300 by 02/27/17 4. Uziel will return to baseline or improve on his muscle strength to all extremities by 01/30 07/17. 5. Uziel will tolerate a regular diet by 02/25/17. 6. Patient to be modified independent with ambulation in room and hallway 02/27/17. 7. Pt will be set-up/SBA for his ADLs & functional mobility w/C-Bracing precautions. By 01/31 8. Uziel will meet 75% of predicted incentive spirometer goal of 2350 ml by 02/28/17. STRATEGY TO ACHIEVE GOALS: 1. Assess pain every 4 hrs, offer snacks, cluster care, dim lighting, and reassess pain per policy. 2. Listen BT to all quadrants, offer fluids, encourage ambulation, and offer PRN stool soft eners. 3. Offer urinal/bedside commode, monitor urine output, promote an elimination schedule and bladder scan per policy. Maintain forbes patency after insertion. When forbes removed continue w/bladder scans and straight caths per MD order 4.Assess for muscle strength and sensation every 4 hrs and notify MD for any concerns. 5. Assess for swallowing difficulties, monitor for n/v, and advance diet as tolerated. 6. Patient to participate in PT activities 7. Patient will set up in bedside chair for all meals. - Active participation in OT sessions. - Instruct patient how use of Incentive Spirometry and deep breath and cough. Nursing and R espiratory to work together to have patient use every hour while awake. Respiratory to monit or progress 4 times daily until 75% goal met then turn over to nursing. Outcome: Improving Physical Therapy Plan of Care Treatment Note Summary: Pt seen for follow up PT session for progressing functional mobility and safety. RN reporting pt was very lethargic and sedated yesterday, but is better today after medicati on changes last night. PT BP and vitals taken, and WFL, although pt is sweating profusely on forehead and scalp. Gait and functional mobilty as noted below with PT assist. pt sitting up in bedside chair after PT session, handed off to nursing with call light in reach. Physical Therapy Discharge Recommendations are: Recommended discharge disposition: home with assist, custodial facility (VS) Post discharge physical therapy recommendation: family involved/supportive Equipment Recommendations: 2 wheeled walker (FWW), shower chair, seat riser Planned Interventions: balance training, bed mobility training, gait training, orthotic fi tting/training, patient/family education, stair training, strengthening, transfer training Recommended Frequency: daily Patient Status/Goals: Reflects last filed data and may be from multiple contributors. Gait Contact-guard assist for mild imbalance, decreased strength, safety, C brace precautions. Verbal cues for assistive device use, upright posture. Level of [place]: contact guard assist, verbal cues required Assistive Device: 2 wheeled walker (FWW) Distance (feet): 50 ft x 2 Gait Pattern Analysis: 3-point gait Gait Deviations: олег decreased, step length decreased, stride length decreased, swing-t o-stance ratio decreased, weight-shifting ability decreased Transfers slow, cautious mobility. Sit-Stand, Level of [place]: contact guard assist, verbal cues required Stand-Sit, Level of [place]: contact guard assist, verbal cues required [id number], Assistive Device: 2 wheeled walker (FWW) Safety Issues: step length decreased, weight-shifting ability decreased Impairments: decreased flexibility, strength decreased, impaired balance, pain Bed Mobility cues for use of bed controls to lower foot of bed prior to attempt to get up. Assistive Device: bed rails, HOB elevated Roll Left, Level of [place]: stand by assist, verbal cues required Scoot/Bridge, Level of [place]: verbal cues required Supine to Sit, Level of [place]: contact guard assist, verbal cues required, set up re quired Sit to Supine, Level of [place]: minimal assist (75% patient effort), verbal cues requ ired Safety Issues: decreased use of legs for bridging/pushing, decreased use of arms for pushin g/pulling Impairments: decreased flexibility, pain, strength decreased Balance fair Functional Endurance fair, addl time for all mobility. ROM L LE ROM: Within functional limits R LE ROM: Within functional limits Strength L LE Strength: Grossly 4/5 R LE Strength: Grossly 4/5 Trunk strength: Not tested due to lumbar surgery. PT Goal Review Date Most Recent Value STG Review Date 02/24/17 at 02/23/2017 1634 [id number] Goal Most Recent Value STG Status continued/progressing at 02/25/2017 0930 STG [place] Level modified independent at 02/23/2017 1634 STG Assistive Device none at 02/23/2017 1634 [id number] Goal Most Recent Value STG Status continued/progressing at 02/25/2017 0930 STG [place] Level modified independent at 02/23/2017 1634 STG Assistive Device 2 wheeled walker (FWW) at 02/23/2017 1634 Gait Goal Most Recent Value STG Status continued/progressing at 02/25/2017 0930 STG [place] Level modified independent at 02/23/2017 1634 STG Assistive Device 2 wheeled walker (FWW) at 02/23/2017 1634 STG Distance (feet) 150 feet at 02/23/2017 1634 Stair Goal Most Recent Value STG Status continued/progressing at 02/25/2017 0930 STG [place] Level modified independent at 02/23/2017 1634 STG Assistive Device 1 rail at 02/23/2017 1634 STG Number of Stairs 4 at 02/23/2017 1634 Electronically signed by: Yoandy Watson, PT, 02/25/2017 10:32 lan of Care - Angelica Atwood RN - 02/25/2017 4:05 AM PDTProblem: Patient Care Overview (Adult) Goal: Care Team Goals & Evaluation PROBLEM-RELATED GOALS: 1. Uziel will rate pain 3/10 by 02/27/17 2. Uziel will have a BM by 02/26/17. 3. Uziel will be able to void w/PVR <300 by 02/27/17 4. Uziel will return to baseline or improve on his muscle strength to all extremities by 01/30 07/17. 5. Uziel will tolerate a regular diet by 02/25/17. 6. Patient to be modified independent with ambulation in room and hallway 02/27/17. 7. Pt will be set-up/SBA for his ADLs & functional mobility w/C-Bracing precautions. By 01/31 8. Uziel will meet 75% of predicted incentive spirometer goal of 2350 ml by 02/28/17. STRATEGY TO ACHIEVE GOALS: 1. Assess pain every 4 hrs, offer snacks, cluster care, dim lighting, and reassess pain per policy. 2. Listen BT to all quadrants, offer fluids, encourage ambulation, and offer PRN stool soft eners. 3. Offer urinal/bedside commode, monitor urine output, promote an elimination schedule and bladder scan per policy. Maintain forbes patency after insertion. When forbes removed continue w/bladder scans and straight caths per MD order 4.Assess for muscle strength and sensation every 4 hrs and notify MD for any concerns. 5. Assess for swallowing difficulties, monitor for n/v, and advance diet as tolerated. 6. Patient to participate in PT activities 7. Patient will set up in bedside chair for all meals. - Active participation in OT sessions. - Instruct patient how use of Incentive Spirometry and deep breath and cough. Nursing and R espiratory to work together to have patient use every hour while awake. Respiratory to monit or progress 4 times daily until 75% goal met then turn over to nursing. Outcome: Unchanged Goal Evaluation: has not been oversedated this shift. Medicating w/oxycodone q4h prn and offering robaxin q 6h prn w/fair relief obtained from both. Requires mod assist to sitting position at side of bed, cga w/ambulation w/fww to bathroom. LSO brace on at all times. Good fluid intake, no na usea, tolerating general diet. Currently on room air w/sats >92%. Required placement of fole y d/t inability to empty bladder to maintain PVR <300. Had already been straight cathed x2 f or bladder volumes 1000 ml or greater. Band aids to back clean/dry. MIGUEL A drain w/serosanguineo us drainage lan of Care - Vijay Medel RN - 02/24/2017 8:13 PM PDTProblem: Patient Care Overview (Adult) Goal: Care Team Goals & Evaluation PROBLEM-RELATED GOALS: 1. Uziel will rate pain 3/10 by 02/25/17 2. Uziel will have a BM by 02/24/17. 3. Uziel will have adequate urine output by 02/24/17. 4. Uziel will return to baseline or improve on his muscle strength to all extremities by 01/30 07/17. 5. Uziel will tolerate a regular diet by 02/25/17. 6. Patient to be modified independent with ambulation and hallway02/27/17. 7. Pt will be set-up/SBA for his ADLs & functional mobility w/i C-Bracing precautions. 8. Uziel will meet 75% of predicted incentive spirometer goal of 2350 ml by 02/28/17. STRATEGY TO ACHIEVE GOALS: 1. Assess pain every 4 hrs, offer snacks, cluster care, dim lighting, and reassess pain per policy. 2. Listen BT to all quadrants, offer fluids, encourage ambulation, and offer PRN stool soft eners. 3. Offer urinal/bedside commode, monitor urine output, promote an elimination schedule and bladder scan per policy. 4.Assess for muscle strength and sensation every 4 hrs and notify MD for any concerns. 5. Assess for swallowing difficulties, monitor for n/v, and advance diet as tolerated. 6. Patient to participate in PT activities 7. Patient will set up in bedside chair for all meals. - Active participation in OT sessions. - Instruct patient how use of Incentive Spirometry and deep breath and cough. Nursing and R espiratory to work together to have patient use every hour while awake. Respiratory to monit or progress 4 times daily until 75% goal met then turn over to nursing. Outcome: Improving Goal Evaluation: Pt was sleepy but was able to state name, place and situation this morning. This RN was ca lled to the room because Pt was lethargic, unresponsive and sedated around lunch time. Pt wa s assess and was able to state his margo and birthday but was unable to maintain his eyes ope n while conversing with Pt. Pt's required oxygen but rest of VS were stable and DOM Reeves was notified; see new orders. Pt was much alert this evening and was able to eat by hi m self. Pt is passing gas now but no BM. Pt has been tolerating a regular diet well. Pt has taken 10 mg of oxycodone with no sedation. Denies numbness to LE, muscle strength to bilater al LE remains 5/5. Band aids to lowe back still c/d/i. Call light within reach. lan of Care - Maia Thomas, DEPOT AGENT - 02/24/2017 7:47 PM PDTProblem: Patient Care Overview (Adult) Goal: Care Team Goals & Evaluation PROBLEM-RELATED GOALS: 1. Uziel will rate pain 3/10 by 02/25/17 2. Uziel will have a BM by 02/24/17. 3. Uziel will have adequate urine output by 02/24/17. 4. Uziel will return to baseline or improve on his muscle strength to all extremities by 01/30 07/17. 5. Uziel will tolerate a regular diet by 02/25/17. 6. Patient to be modified independent with ambulation and hallway02/27/17. 7. Pt will be set-up/SBA for his ADLs & functional mobility w/i C-Bracing precautions. 8. Uziel will meet 75% of predicted incentive spirometer goal of 2350 ml by 02/28/17. STRATEGY TO ACHIEVE GOALS: 1. Assess pain every 4 hrs, offer snacks, cluster care, dim lighting, and reassess pain per policy. 2. Listen BT to all quadrants, offer fluids, encourage ambulation, and offer PRN stool soft eners. 3. Offer urinal/bedside commode, monitor urine output, promote an elimination schedule and bladder scan per policy. 4.Assess for muscle strength and sensation every 4 hrs and notify MD for any concerns. 5. Assess for swallowing difficulties, monitor for n/v, and advance diet as tolerated. 6. Patient to participate in PT activities 7. Patient will set up in bedside chair for all meals. - Active participation in OT sessions. - Instruct patient how use of Incentive Spirometry and deep breath and cough. Nursing and R espiratory to work together to have patient use every hour while awake. Respiratory to monit or progress 4 times daily until 75% goal met then turn over to nursing. Goal Evaluation: Patient is on room air. Breath sounds clear. Volumes of 1500cc achieved with insp. Genoveva nue to monitor patient. lan of Care - Stefan, Jaycee Gonzales RN - 02/24/2017 2:31 PM PDTProblem: Discharge Planning Goal: Patient will be discharged in a safe manner Discharge planning: This CM met with patient, Uziel Rea at his bedside today. Uziel states that he lives with his , Henny in their home in [place]. The home is a one level home with two steps to enter. The bathroom has a tub shower with a shower bench, hand held shower, and grab bars. They em ve a toilet riser over the toilet. Uziel does NOT have a FWW and will need one. He does not have a preference on where it comes from. Order and all supporting documentaiton for the FWW has been faxed to [facility], fax # [phone], with request to be delivered to the patients room #318. Follow up phone call, spoke with Kylee at [facility], [phone], to assure the order has been re ceived. She states that they did receive the order and are processing it. Uziel declines the need for any home health services. He also declines the need for a SNF at this time. His Henny arrived and enter the room while we were talking, she confirmed the above in formation. Uziel's PCP is Dr Brandon Juarez and he uses the [facility] in [place]. His , Henny will be his transportation home when he is medically stable for discharge. Electronically signed by: Jaycee Aviles RN 02/24/2017 14:48 This CM received a phone call from Veronika at [facility] stating that they will deliver the FWW f irst thing in the morning. 02/25/2017 AM. Electronically signed by: Jaycee Aviles RN 02/24/2017 16:19 lan of Michael - Yoandy Domingo PT - 02/24/2017 1:30 PM PDTMissed Visit Patient Information Patient Name: Uziel Rea Date of : 1945 Age: 71 y.o. The patient was unable to be seen for today's scheduled visit due to PT was unable to arous e patient for therapy session. PT summoned RN to room and was able to perform waking for li mited periods of time as patient is extremely lethargic at this time and appears sedated. P T was unable to get more than a grunt or patient's first name from patient and he was unable to progress with therapies at this time. Patient was handed off to nursing for further ass essment. was present at this time. Nursing recommending resume therapies tomorrow.. Plan: Resume normally scheduled therapies tomorrow. Electronically signed by: Yoandy Watson PT, 02/24/2017 17:11 lan of Evelina Baum OT - 02/24/2017 10:37 AM PDT Problem: Patient Care Overview (Adult) Goal: Care Team Goals & Evaluation PROBLEM-RELATED GOALS: 1. Uziel will rate pain 3/10 by 02/25/17 2. Uziel will have a BM by 02/24/17. 3. Uziel will have adequate urine output by 02/24/17. 4. Uziel will return to baseline or improve on his muscle strength to all extremities by 01/30 07/17. 5. Uziel will tolerate a regular diet by 02/25/17. 6. Patient to be modified independent with ambulation and hallway02/27/17. 7. Pt will be set-up/SBA for his ADLs & functional mobility w/i C-Bracing precautions. 8. Uziel will meet 75% of predicted incentive spirometer goal of 2350 ml by 02/28/17. STRATEGY TO ACHIEVE GOALS: 1. Assess pain every 4 hrs, offer snacks, cluster care, dim lighting, and reassess pain per policy. 2. Listen BT to all quadrants, offer fluids, encourage ambulation, and offer PRN stool soft eners. 3. Offer urinal/bedside commode, monitor urine output, promote an elimination schedule and bladder scan per policy. 4.Assess for muscle strength and sensation every 4 hrs and notify MD for any concerns. 5. Assess for swallowing difficulties, monitor for n/v, and advance diet as tolerated. 6. Patient to participate in PT activities 7. Patient will set up in bedside chair for all meals. - Active participation in OT sessions. - Instruct patient how use of Incentive Spirometry and deep breath and cough. Nursing and R espiratory to work together to have patient use every hour while awake. Respiratory to monit or progress 4 times daily until 75% goal met then turn over to nursing. Occupational Therapy Plan of Care Treatment Note Summary: Pt seen for OT tx to address fxl transfers, ADLs. 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 Nursing notified of these findings. Pt groomed at sink with set up assist and VC str aighten knees/back. Pt did required 2 seated rest breaks during grooming session. Also ins tructed pt in dressing techniques with C brace precautions, donned pants/underwear and new g own while following precautions. Pt required mod A for weaving pant over legs due to Bilat hand weakness. Pt requires multiple VC for all ADLs needs close CGA when completing transfe rs. Pt fatigues easily when performing static/dynamic standing activities. Pt's HR at 109 once back in bed, BP at 99/67. Nursing notified. Will continue to follow for strengthening , ADLs, and fxl transfers. Occupational Therapy Discharge Recommendations are: Recommended discharge disposition: home with assist (TBD) Post discharge occupational therapy recommendation: (TBD- no further OT anticipated but w ill assess) Equipment Recommendations: (TBd) Planned Interventions:ADL retraining, bed mobility training, orthotic fitting/training, tra nsfer training Recommended Frequency: (2-3 addt'l OT visits) Patient Status/Goals: Reflects last filed data and may be from multiple contributors. ADLs mod A for dressing due to weakness in BUEs LB Dressing, Level of [place]: moderate assist (50% patient effort) Assistive Device: none LB Dressing Assess/Train, Position: sitting, supported standing LB Dressing Assess/Train, Impairments: pain, strength decreased, ROM decreased Pt requires assist to lift legs to get back into bed. Grooming, Level of [place]: minimal assist (75% patient effort), set up required Assistive Device: none Grooming Assess/Train, Position: supported sitting Grooming Assess/Train, Impairments: strength decreased, ROM decreased, pain Bed Mobility VC for log roll technique for C brace precautions Assistive Device: bed rails, HOB elevated Roll Left, Level of [place]: stand by assist, verbal cues required Scoot/Bridge, Level of [place]: verbal cues required Supine to Sit, Level of [place]: contact guard assist, verbal cues required, set up re quired Sit to Supine, Level of [place]: minimal assist (75% patient effort), verbal cues requ ired, set up required Safety Issues: decreased use of legs for bridging/pushing, decreased use of arms for pushin g/pulling Impairments: decreased flexibility, pain, strength decreased Transfers Tends to fatigue quickly, especially when static standing. Cues to straighten back/knees. Very narrow ABEL. Sit-Stand, Level of [place]: contact guard assist, verbal cues required Stand-Sit, Level of [place]: contact guard assist, verbal cues required [id number], Assistive Device: 2 wheeled walker (FWW) Safety Issues: step length decreased, weight-shifting ability decreased Impairments: decreased flexibility, strength decreased, impaired balance, pain ROM L UE ROM: WFL within precautions R UE ROM: WFL within precautions Strength L UE Strength: Weak today - grossly 3/5 R UE Strength: Weak today - grossly 3/5 OT Goal Review Date Most Recent Value STG Review Date 02/28/17 at 02/24/2017 0942 UB Dressing Goal Most Recent Value STG Status continued/progressing, not addressed at 02/24/2017 0942 STG [place] Level set up required at 02/24/2017 0942 LB Dressing Goal Most Recent Value STG Status continued/progressing at 02/24/2017 0942 STG [place] Level set up required at 02/24/2017 0942 Toileting Goal Most Recent Value STG Status continued/progressing, not addressed at 02/24/2017 0942 STG [place] Level supervised at 02/24/2017 0942 Toilet Transfer Goal Most Recent Value STG Status continued/progressing, not addressed at 02/24/2017 0942 STG [place] Level supervised at 02/24/2017 0942 Tub/Shower Transfer Goal Most Recent Value Tub/Shower Type tub at 02/24/2017 0942 STG Status continued/progressing, not addressed at 02/24/2017 0942 STG [place] Level stand by assist at 02/24/2017 0942 Additional Goals #1 OT Most Recent Value STG Status continued/progressing at 02/24/2017 0942 STG Family/caregiver to demo good understanding of C-Bracing precautions. at 02/25/20 17 0942 Electronically signed by: Evelina Garcia OT, 02/24/2017 10:36 lan of Care - Mikala Faith RN - 02/24/2017 4:20 AM PDTProblem: Patient Care Overview (Adult) Goal: Care Team Goals & Evaluation PROBLEM-RELATED GOALS: 1. Uziel will rate pain 3/10 by 02/25/17 2. Uziel will have a BM by 02/24/17. 3. Uziel will have adequate urine output by 02/24/17. 4. Uziel will return to baseline or improve on his muscle strength to all extremities by 01/30 07/17. 5. Uziel will tolerate a regular diet by 02/25/17. 6. Patient to be modified independent with ambulation and hallway02/27/17. 7. Pt will be set-up/SBA for his ADLs & functional mobility w/i C-Bracing precautions. 8. Uziel will meet 75% of predicted incentive spirometer goal of 2350 ml by 02/28/17. STRATEGY TO ACHIEVE GOALS: 1. Assess pain every 4 hrs, offer snacks, cluster care, dim lighting, and reassess pain per policy. 2. Listen BT to all quadrants, offer fluids, encourage ambulation, and offer PRN stool soft eners. 3. Offer urinal/bedside commode, monitor urine output, promote an elimination schedule and bladder scan per policy. 4.Assess for muscle strength and sensation every 4 hrs and notify MD for any concerns. 5. Assess for swallowing difficulties, monitor for n/v, and advance diet as tolerated. 6. Patient to participate in PT activities 7. Patient will set up in bedside chair for all meals. - Active participation in OT sessions. - Instruct patient how use of Incentive Spirometry and deep breath and cough. Nursing and R espiratory to work together to have patient use every hour while awake. Respiratory to monit or progress 4 times daily until 75% goal met then turn over to nursing. Outcome: Improving Goal Evaluation: Assumed care at approximately 2300. Bandaids CDI. MIGUEL A draining moderate amount sanguinous dr salcedo. CMS intact, c/o chronic BLE n/t but reports it's improved. Strong dorsi/plantar flex ion/extension. Lungs clear, HRR. VSS, afebrile. Voiding adequately in urinal. OOB 1 person CGA w/ FWW. Denies N/V. Last BM 02/23. Reports 7/10 low back pain, given 20 mg oxycodone PRN 4H, scheduled IV robaxen and 4 mg IV morphine for breakthrough. Some relief. Following LSO C brace precautions. Calls appropriately. No falls/injury this shift. lan of Care - Maine Morgan, DEPOT AGENT - 02/24/2017 1:40 AM PDTProblem: Patient Care Overview (Adult) Goal: Care Team Goals & Evaluation PROBLEM-RELATED GOALS: 1. Uziel will rate pain 3/10 by 02/25/17 2. Uziel will have a BM by 02/24/17. 3. Uziel will have adequate urine output by 02/24/17. 4. Uziel will return to baseline or improve on his muscle strength to all extremities by 01/30 07/17. 5. Uziel will tolerate a regular diet by 02/25/17. 6. Patient to be modified independent with ambulation and hallway02/27/17. 7. Pt will be set-up/SBA for his ADLs & functional mobility w/i C-Bracing precautions. STRATEGY TO ACHIEVE GOALS: 1. Assess pain every 4 hrs, offer snacks, cluster care, dim lighting, and reassess pain per policy. 2. Listen BT to all quadrants, offer fluids, encourage ambulation, and offer PRN stool soft eners. 3. Offer urinal/bedside commode, monitor urine output, promote an elimination schedule and bladder scan per policy. 4.Assess for muscle strength and sensation every 4 hrs and notify MD for any concerns. 5. Assess for swallowing difficulties, monitor for n/v, and advance diet as tolerated. 6. Patient to participate in PT activities 7. Patient will set up in bedside chair for all meals. - Active participation in OT sessions. Goal Evaluation: Uziel is on room air with SPO2 96%. Breath sounds appear clear. Patient achieving 2500 of I S Predicted Level (mL) : 2350 lan of Care - Emily Shaw RN - 02/23/2017 9:17 PM PDTProblem: Patient Care Overview (Adult) Goal: Care Team Goals & Evaluation PROBLEM-RELATED GOALS: 1. Uziel will rate pain 3/10 by 02/25/17 2. Uziel will have a BM by 02/24/17. 3. Uziel will have adequate urine output by 02/24/17. 4. Uziel will return to baseline or improve on his muscle strength to all extremities by 01/30 07/17. 5. Uziel will tolerate a regular diet by 02/25/17. 6. Patient to be modified independent with ambulation and hallway02/27/17. 7. Pt will be set-up/SBA for his ADLs & functional mobility w/i C-Bracing precautions. STRATEGY TO ACHIEVE GOALS: 1. Assess pain every 4 hrs, offer snacks, cluster care, dim lighting, and reassess pain per policy. 2. Listen BT to all quadrants, offer fluids, encourage ambulation, and offer PRN stool soft eners. 3. Offer urinal/bedside commode, monitor urine output, promote an elimination schedule and bladder scan per policy. 4.Assess for muscle strength and sensation every 4 hrs and notify MD for any concerns. 5. Assess for swallowing difficulties, monitor for n/v, and advance diet as tolerated. 6. Patient to participate in PT activities 7. Patient will set up in bedside chair for all meals. - Active participation in OT sessions. Goal Evaluation: Uziel rated pain 8/10 medicated with morphine and oxycodone. Tolerated this well and appear s alert and oriented. Pain resolved and dropped to 4/10. Uziel BT are hypoactive to all quadr ants, he denies n/v and ate 75% of a general diet. Uziel has been drinking plenty of fluids b ut unable to void or feel the urge. Bladder scan total of 999 residual. Straight cath and c ollected 1200 cc, urine was yellow. LSC and is on RA. Sats >95%. Uziel is able to walk using a FWW with 1 mod. C/o of chronic numbness and tingling to lower extremities but sensation is intact.. Uziel is calling approprietly and making needs known. lan of Care - Angeles Martin, OT - 02/23/2017 5:40 PM PDTFormatting of this note might be different from kennedy salazar original. Problem: Patient Care Overview (Adult) Goal: Care Team Goals & Evaluation PROBLEM-RELATED GOALS: 1. Uziel will rate pain 3/10 by 02/25/17 2. Uziel will have a BM by 02/24/17. 3. Uziel will have adequate urine output by 02/24/17. 4. Uziel will return to baseline or improve on his muscle strength to all extremities by 01/30 07/17. 5. Uziel will tolerate a regular diet by 02/25/17. 6. Patient to be modified independent with ambulation and hallway02/27/17. 7. Pt will be set-up/SBA for his ADLs & functional mobility w/i C-Bracing precautions. STRATEGY TO ACHIEVE GOALS: 1. Assess pain every 4 hrs, offer snacks, cluster care, dim lighting, and reassess pain per policy. 2. Listen BT to all quadrants, offer fluids, encourage ambulation, and offer PRN stool soft eners. 3. Offer urinal/bedside commode, monitor urine output, promote an elimination schedule and bladder scan per policy. 4.Assess for muscle strength and sensation every 4 hrs and notify MD for any concerns. 5. Assess for swallowing difficulties, monitor for n/v, and advance diet as tolerated. 6. Patient to participate in PT activities 7. Patient will set up in bedside chair for all meals. - Active participation in OT sessions. Occupational Therapy Plan of Care Initial Evaluation Note Summary: Pt seen for OT evaluation following lumbar surgery. Fair recall of precautions, new C-Brace vs B-Brace from previous surgery. Verbal cues for bed mobility to ensure a good log-roll technique. Mobilized w/ shortened step length, very narrow base of support. Pain moderate. Would benefit from further OT intervention to facilitate maximal functional inde pendence, safety w/ new C-Bracing precautions. Occupational Therapy Discharge Recommendations are: Recommended discharge disposition: home with assist (TBD) Post discharge occupational therapy recommendation: (TBD- no further OT anticipated but w ill assess) Equipment Recommendations: TBD Planned Interventions:ADL retraining, bed mobility training, orthotic fitting/training, tra nsfer training Recommended Frequency: (2-3 addt'l OT visits) Patient Status/Goals: Reflects last filed data and may be from multiple contributors. ADLs Further ADLs tomorrow. Bed Mobility Verbal cues to maintain a good log-roll technique w/i C-Bracing precautions. Supine to Sit, Level of [place]: contact guard assist, verbal cues required, set up re quired Sit to Supine, Level of [place]: stand by assist, verbal cues required, set up require d Safety Issues: decreased use of legs for bridging/pushing Impairments: decreased flexibility, pain, strength decreased Transfers Heavy reliance of UEs on FWW, shoulders elevated. Cues to relax through arms w/ fair outco me. Gait very shortened in stride and very narrow ABEL. Sit-Stand, Level of [place]: contact guard assist, verbal cues required Stand-Sit, Level of [place]: contact guard assist, verbal cues required Khs-Krssv-Tuz, Assistive Device: 2 wheeled walker (FWW) Safety Issues: step length decreased, weight-shifting ability decreased Impairments: decreased flexibility, strength decreased, impaired balance, pain OT Goal Review Date Most Recent Value STG Review Date 02/28/17 at 02/23/2017 1735 UB Dressing Goal Most Recent Value STG Status new at 02/23/2017 1735 STG [place] Level set up required at 02/23/2017 1735 LB Dressing Goal Most Recent Value STG Status new at 02/23/2017 1735 STG [place] Level set up required at 02/23/2017 1735 Toileting Goal Most Recent Value STG Status new at 02/23/2017 1735 STG [place] Level supervised at 02/23/2017 1735 Toilet Transfer Goal Most Recent Value STG Status new at 02/23/2017 1735 STG [place] Level supervised at 02/23/2017 1735 Tub/Shower Transfer Goal Most Recent Value Tub/Shower Type tub at 02/23/2017 1735 STG Status new at 02/23/2017 1735 STG [place] Level stand by assist at 02/23/2017 1735 Additional Goals #1 OT Most Recent Value STG Status new at 02/23/2017 1735 STG Family/caregiver to demo good understanding of C-Bracing precautions. at 02/24/20 17 1735 Electronically signed by: Angeles Martin, OT, 02/23/2017 17:38 lan of Care - L Sean covarrubias, PT - 02/23/2017 5:12 PM PDTFormatting of this note might be different fr om the original. Problem: Patient Care Overview (Adult) Goal: Care Team Goals & Evaluation PROBLEM-RELATED GOALS: 1. Uziel will rate pain 3/10 by 02/25/17 2. Uziel will have a BM by 02/24/17. 3. Uziel will have adequate urine output by 02/24/17. 4. Uziel will return to baseline or improve on his muscle strength to all extremities by /2 07/17. 5. Uziel will tolerate a regular diet by 02/25/17. 6. Patient to be modified independent with ambulation and hallway02/27/17. STRATEGY TO ACHIEVE GOALS: 1. Assess pain every 4 hrs, offer snacks, cluster care, dim lighting, and reassess pain per policy. 2. Listen BT to all quadrants, offer fluids, encourage ambulation, and offer PRN stool soft eners. 3. Offer urinal/bedside commode, monitor urine output, promote an elimination schedule and bladder scan per policy. 4.Assess for muscle strength and sensation every 4 hrs and notify MD for any concerns. 5. Assess for swallowing difficulties, monitor for n/v, and advance diet as tolerated. 6. Patient to participate in PT activities 7. Patient will set up in bedside chair for all meals. Outcome: Improving Physical Therapy Plan of Care Initial Evaluation, Treatment Note Summary: Patient seen for initial evaluation and treatment following lumbar surgery. Annika ent is grade C brace precautions. Patient presents with pain, decreased strength, decreased balance, decreased activity tolerance that are limiting his ability to ambulate safely and independently or to perform ADLs. Patient medical history significant for lumbar surgery in 2014, and colon cancer 2013, and rheumatoid arthritis.. Patient reports he has chronic margarita ateral foot numbness as well as left lateral leg numbness. Patient needed standby assist an d reinforcement of log roll technique. Patient able to roll and sit edge of bed and balance with bilateral upper extremity support. He has a noticeable shake that is chronic and prio r to this surgery. With contact guard assist patient stood to a frontwheel walker and perfo rmed weight shifts and marching in place. Patient with complaints of 7/10 pain but agreeabl e to continue session. With contact guard assist patient able to ambulate to the bathroom a nd back with no loss of balance or no adverse event. At this time patient is a fall risk du e to mild imbalance decreased strength, and pain and he was instructed to call nursing for a ssistance with all mobility. Patient and his spouse acknowledged understanding. Patient wi ll benefit from skilled physical therapy to increase strength, increased balance, increase a ctivity tolerance, to improve his independence and safety. Physical Therapy Discharge Recommendations are: Recommended discharge disposition: home with assist Post discharge physical therapy recommendation: (To be determined) Equipment Recommendations: 2 wheeled walker (FWW), shower chair, seat riser Planned Interventions: balance training, bed mobility training, gait training, orthotic fi tting/training, patient/family education, stair training, strengthening, transfer training Recommended Frequency: daily Patient Status/Goals: Reflects last filed data and may be from multiple contributors. Gait Contact-guard assist for mild imbalance, decreased strength, safety, C brace precautions. Verbal cues for assistive device use, upright posture. Level of [place]: contact guard assist, verbal cues required Assistive Device: 2 wheeled walker (FWW) Distance (feet): 15 feet x2 Gait Pattern Analysis: 4-point gait Gait Deviations: олег decreased, step length decreased, stride length decreased, swing-t o-stance ratio decreased, weight-shifting ability decreased Transfers Contact-guard assist for safety, pain, mildly decreased balance, decreased strength. No lo ss of balance and no adverse events. Verbal cues for upright posture, and reducing bilatera l upper extremity reliance. Sit-Stand, Level of [place]: contact guard assist, verbal cues required Stand-Sit, Level of [place]: contact guard assist, verbal cues required [id number]-[id number], Assistive Device: 2 wheeled walker (FWW) Safety Issues: step length decreased, weight-shifting ability decreased Impairments: decreased flexibility, strength decreased, impaired balance, pain Bed Mobility Standby assist for pain, decreased flexibility, decreased strength, and decreased activity tolerance, except sit to supine where he needed min assist with lower extremity management.. Assistive Device: bed rails, HOB elevated Roll Left, Level of [place]: stand by assist, verbal cues required Scoot/Bridge, Level of [place]: verbal cues required (.) Supine to Sit, Level of [place]: stand by assist, verbal cues required Sit to Supine, Level of [place]: minimal assist (75% patient effort), verbal cues requ ired Impairments: decreased flexibility, pain, strength decreased Balance [facility] Turning over in bed: no assistance required Sitting down /standing up from arm chair: no assistance required Moving from supine to sitting on edge of bed: a little difficulty without assistance Moving to and from a bed to a chair : min assist, CGA, SBA, Supervision/a little help Walking in hospital room: min assist, CGA, SBA, Supervision/a little help Climbing 3-5 steps with a railing: mod or max assist/a lot of help TOTAL - [facility] : 19 Unable / dependent = 1 A lot / modA = 2 A little / Pili = 3 None / independent = 4 Completed the [employer] Activity Measure for Post Acute Care (AM-PAC) "6 Clicks" [facility] Mobility Inpatient Short Form. This version of the AM-PAC is an assessment tool used to measure a person's level of disability in performing basic mobility tasks. This patient's score indicates a performance of 41.77% impairment in the functioning of basic mobility. Raw Score - Functional Limitation % (for CMS) - "Severity Modifier" 6 - 100.00 - CN 7 - 92.36 - CM 8 - 86.62 - CM 9 - 81.38 - CM 10 - 76.75 - CL 11 - 72.57 - CL 12 - 68.66 - CL 13 - 64.91 - CL 14 - 61.29 - CL 15 - 57.70 - CK 16 - 54.16 - CK 17 - 50.57 - CK 18 - 46.58 - CK 19 - 41.77 - CK 20 - 35.83 - CJ 21 - 28.97 - CJ 22 - 20.91 - CJ 23 - 11.2 - CI 24 - 0.00 - CH Predicted Discharge During Acute Hospitalization (Raw Score) Home = 20.1 With assist = 17.9 SNF = 14 IRF = 13.6 LTAC = 11.5 Functional Endurance Fair. Patient with 7/10 pain with ambulation. ROM L LE ROM: Within functional limits R LE ROM: Within functional limits Strength L LE Strength: Grossly 4/5 R LE Strength: Grossly 4/5 Trunk strength: Not tested due to lumbar surgery. PT Goal Review Date Most Recent Value STG Review Date 02/24/17 at 02/23/2017 1634 Qtchdq-Ipl-Nbbila Goal Most Recent Value STG Status new, continued/progressing at 02/23/2017 1634 STG [place] Level modified independent at 02/23/2017 1634 STG Assistive Device none at 02/23/2017 1634 Kuq-Kxqvx-Vwh Goal Most Recent Value STG Status new, continued/progressing at 02/23/2017 1634 STG [place] Level modified independent at 02/23/2017 1634 STG Assistive Device 2 wheeled walker (FWW) at 02/23/2017 1634 Gait Goal Most Recent Value STG Status new, continued/progressing at 02/23/2017 1634 STG [place] Level modified independent at 02/23/2017 1634 STG Assistive Device 2 wheeled walker (FWW) at 02/23/2017 1634 STG Distance (feet) 150 feet at 02/23/2017 1634 Stair Goal Most Recent Value STG Status new at 02/23/2017 1634 STG [place] Level modified independent at 02/23/2017 1634 STG Assistive Device 1 rail at 02/23/2017 1634 STG Number of Stairs 4 at 02/23/2017 1634 Electronically signed by: Sean Mckeon, PT, 02/23/2017 17:10 p Note - Brenden George MD - 02/23/2017 12:55 PM PDTFormatting of this note might be different from the orig inal. Operative Note Uziel Silas Rea 71 y.o. male 1945 [id number] Proc. 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 Minimally invasive lumbar fusion via posterior approaches 2. Combined posterolateral and posterior interbody arthrodesis L5-S1 3. Posterior spinal instrumentation L2-Iliac with use of Precept 4. Posterolateral arthrodesis, L2, L3, L4 5. Placement of PEEK interbody spacer L5-S1 6. L5 laminectomy, L5-S1 facetectomy, L5 and S1 foraminotomy for decompression of L5 and S1 nerves and resection of large synovial cyst 7. Microsurgical technique with use of operating microscope 8. Stereotactic navigation for spinal instrumentation using Stealth/O-arm Anesthesia , Dr. You Surgeon Koby George MD - Primary Tmr Teacher DOM Lo-Jonathon EBL 385 Findings L2 right and B L5 loosened hardware. Nonusion L2-L5. L5-S1 severe synovial cyst and facet arthropathy Complications none Specimens * No specimens in log * Drains Drain/Device Site 02/23/17 posterior back (Active) OPERATIVE DETAILS: After obtaining consent, the patient was taken to the operating room and placed under gener al anesthesia. He was then positioned in a prone position on the Porter axis table with his face, neck, chest and extremities positioned and padded appropriately. His back was prepped and draped in standard fashion and a timeout was performed. All members of the surgical tea m agreed with the timeout. A midline incision was made over L2-3 region and the L2 spinous process was exposed with di vie cautery. The spinous process clamp was placed and then the O-arm was brought in. The O-arm was used to obtain 3D images for stereotactic navigation. Screw sizes were plann ed on the Stealth station and then navigation commenced. The prior incisions were opened and coagulated with bovie cautery. Navigation was used dock a METRx tube on the L2, L3, L4 and L5 prior hardware and the set s crews and rods were removed. The screws were noted to be weakened at L5 bilaterally and at L2 on the right. The hardware was removed here and wires were placed at L5. A 7.5 x 55 mm screws was inserted at L2 on the right using Precept and navigation for placement. The navigation was used to localize the levels of L2-3, L3-4, L4-5, and L5-S1, On the right side, a METRx tube was docked down on the L5-S1 lamina facet complex. Bovie cautery was us ed to expose the lamina of L5 and S1 and the L5-S1 facet. High-speed drill was used to deco rticate the exposed bone, and then morselized local bone autograft obtained from the drillin g, BMP and Patti were packed in the posterolateral aspect of the spine along the decortica david bone from L2-S1. This completed the posterolateral fusion from L2-S1. Attention was then paid to the left and more symptomatic side where a TLIF was performed at L5-S1. A METRx tube was docked on the patient's lamina and facet complex and then a high-s peed drill was used to drill through the lamina and the pars segment using the microscope fo r microsurgical dissection. The drilling allowed for an en bloc removal of the L5 lamina an d the L5 inferior facet, which was harvested for planned arthrodesis. The S1 superior facet was then removed from the foramen by disconnecting it from its base with a high-speed drill and removing the fragment with pituitary rongeur. The superior lamina of S1 was removed wi th a Kerrison to decompress with traversing root to its proximal foramen. The ligamentum wa s then taken down with a microhook and Kerrison rongeur, decompressing the underlying dura. Underneath the dura there was severe epidural scarring and a large cyst compressing S1 and S2 severe. This was very challenging to remove requiring extensive microsurgical dissection to work this off the roots and marianne thecal sac. This continued until the S1 root and thecal sac was felt to be free. The disc was then exposed and incised. Once the disk space could adequately be accessed, pituitary rongeurs, curettes, and Kerrison rongeurs were used to wi den the decompression and perform an aggressive diskectomy. The endplates were prepared for arthrodesis. The exiting L5 nerve and traversing S1 nerve were then felt to be free of com pression. Trials were then inserted, and a 12 x 30 mm PEEK spacer using Coroent LO 12 degree and a 10 x 30 PEEK using Coroent Impactedwas determined to be the appropriate sizes in the midline a nd to the left respectively. The interspace was packed with Patti/cancellous chips and al so with morselized local autograft. The PEEK spacers was filled with morselized local bone autograft and Patti. The PEEK spacers were then tamped into the posterior interbody space and confirmed to appropriate position on AP and lateral fluoroscopy at L5-S1. Additional b kennedy materials were then packed lateral to the PEEK spacer. The tubular retractor was then r emoved here, obtaining hemostasis with FloSeal and bipolar cautery. The previously placed wires were then used for placement of instrumentation at L5 along wit h the navigation. A 8.5 x 55 mm screw was inserted at L5 on the left and a 8.5 x 60 mm scre w was inserted at L5 on the right. Iliac trajectories were then selected to meet up with th e L2-5 contruct and then a navigated awl/tap was used to drill into the iliac bilateral and tap the bone. A 8.5 x 70 and 8.5 x 80 were placed into the iliac bones on the right and lef t respectively. The screw towers were aligned, and then a 130 and 140 mm suzanne was passed thr ough the towers and successfully reduced down on the right and left respectively. Set screw s were inserted and then final tightening of the set screws was performed. Then the towers and suzanne passer were removed fully. Final fluoroscopic images and reconstructed images confi rmed appropriate placement of instrumentation with only a slightly anterior trajectory of th e tip of the left iliac screw. 20 mL of exparel was infiltrated into the paraspinous muscles. Epidural blood was evacuated using a METRx tube at L5-S1, a drain was placed at the site, a nd it was tunneled out the skin. The fascia was then closed throughout with 0 Vicryl sutures , followed by closure of the skin with two layers of 2-0 Quill-type sutures. Then 20 mL of 0 .5% Marcaine with epinephrine was infiltrated in the back followed by closure of the skin wi th skin anahy. The wounds were dressed with steristrips/Band-Aids. The drain was secured w ith a Band-Aid and Tegaderm. All counts were reported as correct. The patient tolerated the procedure and was transferr ed to the recovery room in stable condition. Electronically signed by: Koby George MD 02/23/2017 12:52 [facility] rief Op Note - Musa George MD - 02/23/2017 12:52 PM PDTFormatting of this note might be different from the origin al. Brief Operative Note Uziel Silas Rona 71 y.o. male 1945 [id number] Proc. 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 Minimally invasive lumbar fusion via posterior approaches 2. Combined posterolateral and posterior interbody arthrodesis L5-S1 3. Posterior spinal instrumentation L2-Iliac with use of Precept 4. Posterolateral arthrodesis, L2, L3, L4 5. Placement of PEEK interbody spacer L5-S1 6. L5 laminectomy, L5-S1 facetectomy, L5 and S1 foraminotomy for decompression of L5 and S1 nerves and resection of large synovial cyst 7. Microsurgical technique with use of operating microscope 8. Stereotactic navigation for spinal instrumentation using Stealth/O-arm Anesthesia , Dr. You Surgeon Koby George MD - Primary Tmr Teacher Ender Mora PA-C EBL 385 Findings L2 right and B L5 loosened hardware. Nonusion L2-L5. L5-S1 severe synovial cyst and facet arthropathy Complications none Specimens * No specimens in log * Drains Drain/Device Site 02/23/17 posterior back (Active) Electronically signed by: Koby George MD 02/23/2017 12:52 [facility] by Koby George MD at 017 12:55 PM PDTdocumented in this encounter Plan of Treatment + +------+--------+ + + | Name | Type | Priori | Associated Diagnoses | Order Schedule | | | | ty | | | + +------+--------+ + + | DME: Walker | DME | Routin | Gait abnormality | DME 1 Time for 1 | | | | e | | Occurrences starting | | | | | | 02/23/2017 until | | | | | | 02/23/2017 | + +------+--------+ + + documented as of this encounter Procedures + +--------+ + + + | Procedure Name | Priori | Date/Time | Associated Diagnosis | Comments | | | ty | | | | + +--------+ + + + | XR LUMBAR SPINE 2 OR | STAT | 02/23/2017 | | Results for this | | 3 VW | | 2:13 PM | | procedure are in the | | | | PDT | | results section. | + +--------+ + + + | FL GISELLE STATS NO | Routin | 02/23/2017 | | Results for this | | CHARGE | e | 12:16 PM | | procedure are in the | | | | PDT | | results section. | + +--------+ + + + | LAMINECTOMY | | 02/23/2017 | Lumbar | | | PLIF/TLIF | | 7:59 AM | radiculopathy | | | INSTRUMENTATION | | PDT | (M54.16), | | | | | | 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, lumbar | | | | | | (M51.36), Lumbar | | | | | | stenosis with | | | | | | neurogenic | | | | | | claudication | | | | | | (M48.06), Foraminal | | | | | | stenosis of lumbar | | | | | | region (M99.83), | | | | | | 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 | | | | | | (M43.16), Facet | | | | | | arthropathy, lumbar | | | | | | (M12.88) , S/P | | | | | | lumbar fusion | | | | | | (Z98.1), | | | | | | Pseudoarthrosis of | | | | | | lumbar spine | | | | | | (S32.009K), Synovial | | | | | | cyst of lumbar | | | | | | facet joint (M71.38) | | + +--------+ + + + +---+--------+ | | Case | | | Notes | | | | | | Origin | | | al | | | Reques | | | t | | | Inform | | | ation | | | Sent | | | Over | | | 12/10/ | | | 2017:A | | | dditio | | | nal | | | Proced | | | ure | | | Inform | | | ation | | | Added | | | by | | | | | | Yam:EM | | | RDWARE | | | | | | REVISI | | | ON AT | | | L2-3, | | | L3-4, | | | L4-5Ne | | | uromon | | | itorin | | | g: NO; | | | MIS; | | | Side: | | | LeftIn | | | strume | | | nts: | | | C-arm, | | | | | | O-Arm, | | | | | | Naviga | | | tion | | | Instru | | | ments, | | | | | | Drill, | | | | | | Micros | | | cope, | | | | | | Metrx, | | | | | | Stealt | | | hImpla | | | nts: | | | Precep | | | t TLIF | | | cages | | | XLIF | | | RETRAC | | | TOR; | | | Biolog | | | ics: | | | BMP | | | Grafto | | | n | | | Instru | | | mentat | | | ion | | | Rep to | | | | | | Notify | | | : Aman | | | | | | Conkli | | | n | | | (Nuvas | | | dhiraj) | | | Table: | | | | | | Jackso | | | n Ringling | | | | | | FrameE | | | st | | | Time: | | | 240min | +---+--------+ | | | | | Specia | | | l | | | Needs | | | Aman | | | (Nuvas | | | dhiraj) - | | | | | | Precep | | | t, | | | TLIF | | | Cages, | | | XLIF | | | Retrac | | | tor | +---+--------+ documented in this encounter Results XR Lumbar Spine 2 or 3 Vw (02/23/2017 2:13 PM PDT) + + | Specimen | + + | | + + + + + | Narrative | Performed At | + + + | EXAM:XR LUMBAR SPINE 2 OR 3 VW CLINICAL HISTORY: post op | [facility] | | COMPARISON: Outside study dated November 02, 2016. FINDINGS: 2 | | | views. Extension of posterior and interbody fusion across L5-S1. | | | Intact interbody grafts at that level. Hardware is also present | | | from L2 through L5. Hardware is intact. Stable positioning of the | | | interbody grafts at each of those levels. IMPRESSION - No | | | radiographic evidence for an immediate complication. Dictated and | | | Signed by: Maxim Bah MD Electronically signed: 02/23/2017 | | | 3:18 PM | | + + + + + | Procedure Note | + + | Alexis, Rad Results In - 02/23/2017 3:21 PM PDT EXAM:XR LUMBAR SPINE 2 OR 3 VW | | | | CLINICAL HISTORY: post op | | | | COMPARISON: Outside study dated November 02, 2016. | | | | FINDINGS: 2 views. | | | | Extension of posterior and interbody fusion across L5-S1. Intact interbody | | grafts at that level. Hardware is also present from L2 through L5. Hardware is | | intact. Stable positioning of the interbody grafts at each of those levels. | | | | IMPRESSION - | | | | No radiographic evidence for an immediate complication. | | | | Dictated and Signed by: Maxim Bah MD | | Electronically signed: 02/23/2017 3:18 PM | + + + +---------+ + + | Performing | Address | City/State[facility] | Phone Number | | Organization | | | | + +---------+ + + | [facility] | | | | + +---------+ + + FL C-Arm Stats No Charge (02/23/2017 12:16 PM PDT) + + | Specimen | + + | | + + + + + | Narrative | Performed At | + + + | No Radiologist interpretation, please see Chart Review. | [facility] | + + + + +---------+ + + | Performing | Address | City/State/Zipcode | Phone Number | | Organization | | | | + +---------+ + + | [facility] | | | | + +---------+ + + documented in this encounter Visit Diagnoses + + | Diagnosis | + + | Gait abnormality - Primary Abnormality of gait | + + documented in this encounter Administered Medications + +--------+ +--------+------+------+ | Medication Order | MAR | Action | Dose | Rate | Site | | | Action | Date | | | | + +--------+ +--------+------+------+ | acetaminophen (TYLENOL) tablet | Given | 02/24/20 | 650 mg | | | | 650 mg 650 mg, Oral, ONCE, Tue | | 17 7:01 | | | | | 02/23/17 at 0645, For 1 dose, | | AM PDT | | | | | Pre-op | | | | | | + +--------+ +--------+------+------+ +---+---+ | | | +---+---+ + +-------+ +--------+---+---+ | acetaminophen (TYLENOL) tablet | Given | 02/25/20 | 650 mg | | | | 650 mg 650 mg, Oral, EVERY | | 17 12:53 | | | | | HOURS PRN, Pain, Fever, Starting | | PM PDT | | | | | Tue02/23/17 at 1438, | | | | | | | Post-op/Phase II | | | | | | + +-------+ +--------+---+---+ +---+---+ | | | +---+---+ + +-------+ +-------+---+---+ | atorvaSTATin (LIPITOR) tablet | Given | 02/26/20 | 20 mg | | | | 20 mg 20 mg, Oral, NIGHTLY, | | 17 9:54 | | | | | First dose on Tue02/23/17 at | | PM PDT | | | | | 2100, Post-op/Phase II | | | | | | + +-------+ +-------+---+---+ +-------+ +-------+---+---+ | Given | 02/25/20 | 20 mg | | | | | 17 9:02 | | | | | | PM PDT | | | | +-------+ +-------+---+---+ | Given | 02/24/20 | 20 mg | | | | | 17 8:04 | | | | | | PM PDT | | | | +-------+ +-------+---+---+ +---+---+ | | | +---+---+ + +---------+ +-----+-------+---+ | ceFAZolin in saline (ANCEF) | New Bag | 02/25/20 | 2 g | 100 | | | IVPB 2 g 2 g, Intravenous, | | 17 5:01 | | mL/hr | | | Administer over 30 Minutes, EVERY | | AM PDT | | | | | 8 HOURS INTERVAL, First dose on | | | | | | | 02/23/17 at 2000, For 2 doses, | | | | | | | Start 8 hours after previous | | | | | | | dose. Last dose to be given | | | | | | | within 24 hours of surgery end | | | | | | | time. Keep in refrigerator., | | | | | | | Post-op/Phase II, Indications: | | | | | | | Surgical Prophylaxis | | | | | | + +---------+ +-----+-------+---+ +---------+ +-----+-------+---+ | New Bag | 02/24/20 | 2 g | 100 | | | | 17 8:17 | | mL/hr | | | | PM PDT | | | | +---------+ +-----+-------+---+ +---+---+ | | | +---+---+ + +-------+ +--------+---+---+ | docusate sodium (COLACE) | Given | 02/27/20 | 100 mg | | | | capsule 100 mg 100 mg, Oral, 2 | | 17 8:51 | | | | | TIMES DAILY, First dose on Tue | | AM PDT | | | | | 02/23/17 at 2100, First line agent | | | | | | | for constipation, Post-op/Phase | | | | | | | II | | | | | | + +-------+ +--------+---+---+ +-------+ +--------+---+---+ | Given | 02/26/20 | 100 mg | | | | | 17 9:54 | | | | | | PM PDT | | | | +-------+ +--------+---+---+ | Given | 02/26/20 | 100 mg | | | | | 17 8:24 | | | | | | AM PDT | | | | +-------+ +--------+---+---+ +---+---+ | | | +---+---+ + +-------+ +-------+---+---+ | DULoxetine (CYMBALTA) DR | Given | 02/27/20 | 30 mg | | | | capsule 30 mg 30 mg, Oral, 2 | | 17 8:51 | | | | | TIMES DAILY, First dose on Tue | | AM PDT | | | | | 02/23/17 at 2100, Do not open | | | | | | | capsule., Post-op/Phase II | | | | | | + +-------+ +-------+---+---+ +-------+ +-------+---+---+ | Given | 02/26/20 | 30 mg | | | | | 17 9:54 | | | | | | PM PDT | | | | +-------+ +-------+---+---+ | Given | 02/26/20 | 30 mg | | | | | 17 8:24 | | | | | | AM PDT | | | | +-------+ +-------+---+---+ +---+---+ | | | +---+---+ + +-------+ +--------+---+---+ | fentaNYL (PF) injection 25-50 | Given | 02/24/20 | 25 mcg | | | | mcg 25-50 mcg, Intravenous, | | 17 1:51 | | | | | EVERY 5 MIN PRN, Pain, Starting | | PM PDT | | | | | 02/23/17 at 1215, Maximum | | | | | | | total dose 250 mcg. PACU IV | | | | | | | Narcotic Priority: Only use | | | | | | | fentanyl for immediate post-op | | | | | | | pain (one dose) or breakthrough | | | | | | | pain when any other IV narcotics | | | | | | | ordered have been ineffective (if | | | | | | | ordered). If both morphine and | | | | | | | hydromorphone are ordered, use | | | | | | | morphine first, and use | | | | | | | hydromorphone if morphine | | | | | | | ineffective., Recovery/Phase I | | | | | | + +-------+ +--------+---+---+ +-------+ +--------+---+---+ | Given | 02/24/20 | 25 mcg | | | | | 17 1:29 | | | | | | PM PDT | | | | +-------+ +--------+---+---+ | Given | 02/24/20 | 25 mcg | | | | | 17 12:58 | | | | | | PM PDT | | | | +-------+ +--------+---+---+ +---+---+ | | | +---+---+ + +-------+ +--------+---+---+ | gabapentin (NEURONTIN) capsule | Given | 02/27/20 | 800 mg | | | | 800 mg 800 mg, Oral, EVERY 6 | | 17 12:29 | | | | | HOURS (4 times per day), First | | PM PDT | | | | | dose on Tue02/23/17 at 1800, | | | | | | | Post-op/Phase II | | | | | | + +-------+ +--------+---+---+ +-------+ +--------+---+---+ | Given | 02/27/20 | 800 mg | | | | | 17 6:24 | | | | | | AM PDT | | | | +-------+ +--------+---+---+ | Given | 02/27/20 | 800 mg | | | | | 17 1:43 | | | | | | AM PDT | | | | +-------+ +--------+---+---+ +---+---+ | | | +---+---+ + +-------+ +--------+---+---+ | HYDROmorphone (DILAUDID) | Given | 02/24/20 | 0.2 mg | | | | injection 0.2-0.5 mg 0.2-0.5 mg, | | 17 1:46 | | | | | Intravenous, EVERY 5 MIN PRN, | | PM PDT | | | | | Pain, Starting 02/23/17 at | | | | | | | 1215, Maximum total dose 4 mg. | | | | | | | PACU IV Narcotic Priority: Only | | | | | | | use fentanyl for immediate | | | | | | | post-op pain (one dose) or | | | | | | | breakthrough pain when any other | | | | | | | IV narcotics ordered have been | | | | | | | ineffective (if ordered). If | | | | | | | both morphine and hydromorphone | | | | | | | are ordered, use morphine first, | | | | | | | and use hydromorphone if morphine | | | | | | | ineffective., Recovery/Phase I | | | | | | + +-------+ +--------+---+---+ +-------+ +--------+---+---+ | Given | 02/24/20 | 0.2 mg | | | | | 17 1:38 | | | | | | PM PDT | | | | +-------+ +--------+---+---+ | Given | 02/24/20 | 0.3 mg | | | | | 17 1:29 | | | | | | PM PDT | | | | +-------+ +--------+---+---+ +---+---+ | | | +---+---+ + +---------+ +---------+-------+---+ | lactated ringers (LR) infusion | New Bag | 02/24/20 | 100 mLs | 100 | | | at 100 mL/hr, Intravenous, | | 17 6:20 | | mL/hr | | | CONTINUOUS, Starting 02/23/17 | | PM PDT | | | [...] | | +---+---+ + +-------+ +--------+---+---+ | lactulose liquid 30 mL 30 mL, | Given | 02/27/20 | 30 mLs | | | | Oral, 2 TIMES DAILY, First dose | | 17 8:51 | | | | | on Tue02/23/17 at 2100, If | | AM PDT | | | | | docusate, senna, and polyethylene | | | | | | | glycol ineffective x 24 hours or | | | | | | | not ordered, Post-op/Phase II | | | | | | + +-------+ +--------+---+---+ +-------+ +--------+---+---+ | Given | 02/26/20 | 30 mLs | | | | | 17 9:55 | | | | | | PM PDT | | | | +-------+ +--------+---+---+ | Given | 02/26/20 | 30 mLs | | | | | 17 8:24 | | | | | | AM PDT | | | | +-------+ +--------+---+---+ +---+---+ | | | +---+---+ + +-------+ +--------+---+---+ | levothyroxine (SYNTHROID, | Given | 02/27/20 | 75 mcg | | | | LEVOTHROID) tablet 75 mcg 75 | | 17 6:23 | | | | | mcg, Oral, DAILY BEFORE | | AM PDT | | | | | BREAKFAST, First dose on Tue | | | | | | | 02/23/17 at 1500, Give before | | | | | | | breakfast., Post-op/Phase II | | | | | | + +-------+ +--------+---+---+ +-------+ +--------+---+---+ | Given | 02/26/20 | 75 mcg | | | | | 17 6:39 | | | | | | AM PDT | | | | +-------+ +--------+---+---+ | Given | 02/25/20 | 75 mcg | | | | | 17 6:31 | | | | | | AM PDT | | | | +-------+ +--------+---+---+ +---+---+ | | | +---+---+ + +-------+ +--------+---+---+ | lithium capsule 300 mg 300 mg, | Given | 02/26/20 | 300 mg | | | | Oral, DAILY, First dose on Tue | | 17 9:54 | | | | | 02/23/17 at 2100, Post-op/Phase II | | PM PDT | | | | + +-------+ +--------+---+---+ +-------+ +--------+---+---+ | Given | 02/25/20 | 300 mg | | | | | 17 9:01 | | | | | | PM PDT | | | | +-------+ +--------+---+---+ | Given | 02/24/20 | 300 mg | | | | | 17 8:05 | | | | | | PM PDT | | | | +-------+ +--------+---+---+ +---+---+ | | | +---+---+ + +---------+ +--------+--------+---+ | methocarbamol (ROBAXIN) 750 mg | New Bag | 02/25/20 | 750 mg | 143.3 | | | in sodium chloride 0.9% 100 mL | | 17 12:52 | | mL/hr | | | IVPB 750 mg, Intravenous, | | AM PDT | | | | | Administer over 45 Minutes, EVERY | | | | | | | 6 HOURS (4 times per day), First | | | | | | | dose on Tue02/23/17 at 1330, For | | | | | | | 3 doses, Post-op/Phase II | | | | | | + +---------+ +--------+--------+---+ +---------+ +--------+--------+---+ | New Bag | 02/24/20 | 750 mg | 143.3 | | | | 17 6:20 | | mL/hr | | | | PM PDT | | | | +---------+ +--------+--------+---+ | New Bag | 02/24/20 | 750 mg | 143.3 | | | | 17 1:34 | | mL/hr | | | | PM PDT | | | | +---------+ +--------+--------+---+ +---+---+ | | | +---+---+ + +-------+ +--------+---+---+ | methocarbamol (ROBAXIN) tablet | Given | 02/27/20 | 750 mg | | | | 750 mg 750 mg, Oral, EVERY 6 | | 17 10:57 | | | | | HOURS PRN, Muscle spasms, | | AM PDT | | | | | Starting [facility] 02/24/17 at 1401, One | | | | | | | to two tables PRN, | | | | | | + +-------+ +--------+---+---+ +-------+ +--------+---+---+ | Given | 02/27/20 | 750 mg | | | | | 17 1:43 | | | | | | AM PDT | | | | +-------+ +--------+---+---+ | Given | 02/26/20 | 750 mg | | | | | 17 4:10 | | | | | | PM PDT | | | | +-------+ +--------+---+---+ +---+---+ | | | +---+---+ + +-------+ +------+---+---+ | morphine injection 2-4 mg 2-4 | Given | 02/27/20 | 2 mg | | | | mg, Intravenous, EVERY 1 HOUR | | 17 4:11 | | | | | PRN, Pain, Starting [facility] 02/23/17 | | AM PDT | | | | | at 1438, If oral route not an | | | | | | | option. Slow IV push, not faster | | | | | | | than 2mg/minute. First dose must | | | | | | | be lowest dose, titrate to | | | | | | | effective dose by repeat of | | | | | | | lowest dose every 30 minutes prn | | | | | | | pain, may not exceed maximum dose | | | | | | | ordered per interval. Use | | | | | | | Pasero Sedation Scale., | | | | | | | Post-op/Phase II | | | | | | + +-------+ +------+---+---+ +-------+ +------+---+---+ | Given | 02/26/20 | 2 mg | | | | | 17 8:18 | | | | | | AM PDT | | | | +-------+ +------+---+---+ | Given | 02/25/20 | 4 mg | | | | | 17 5:13 | | | | | | AM PDT | | | | +-------+ +------+---+---+ +---+---+ | | | +---+---+ + +-------+ +-------+---+---+ | oxyCODONE (ROXICODONE) tablet | Given | 02/27/20 | 10 mg | | | | 5-10 mg 5-10 mg, Oral, EVERY 4 | | 17 11:54 | | | | | HOURS PRN, Pain, Starting Sana | | AM PDT | | | | | 02/24/17 at 1404, Post-op/Phase II | | | | | | + +-------+ +-------+---+---+ +-------+ +-------+---+---+ | Given | 02/27/20 | 10 mg | | | | | 17 7:59 | | | | | | AM PDT | | | | +-------+ +-------+---+---+ | Given | 02/27/20 | 10 mg | | | | | 17 2:17 | | | | | | AM PDT | | | | +-------+ +-------+---+---+ +---+---+ | | | +---+---+ + +-------+ +-------+---+---+ | oxyCODONE (ROXICODONE) tablet | Given | 02/25/20 | 10 mg | | | | 5-20 mg 5-20 mg, Oral, EVERY 4 | | 17 11:02 | | | | | HOURS PRN, Pain, Starting Wed | | AM PDT | | | | | 02/23/17 at 1438, Post-op/Phase II | | | | | | + +-------+ +-------+---+---+ +-------+ +-------+---+---+ | Given | 02/25/20 | 20 mg | | | | | 17 6:30 | | | | | | AM PDT | | | | +-------+ +-------+---+---+ | Given | 02/25/20 | 20 mg | | | | | 17 1:43 | | | | | | AM PDT | | | | +-------+ +-------+---+---+ +---+---+ | | | +---+---+ + +-------+ +-------+---+---+ | pantoprazole (PROTONIX) DR | Given | 02/27/20 | 40 mg | | | | tablet 40 mg 40 mg, Oral, DAILY | | 17 6:23 | | | | | BEFORE BREAKFAST, First dose on | | AM PDT | | | | | 02/23/17 at 1500, Do not cut | | | | | | | or crush., Post-op/Phase II | | | | | | + +-------+ +-------+---+---+ +-------+ +-------+---+---+ | Given | 02/26/20 | 40 mg | | | | | 17 6:39 | | | | | | AM PDT | | | | +-------+ +-------+---+---+ | Given | 02/25/20 | 40 mg | | | | | 17 6:31 | | | | | | AM PDT | | | | +-------+ +-------+---+---+ +---+---+ | | | +---+---+ + +-------+ +-------+---+---+ | pregabalin (LYRICA) capsule 25 | Given | 02/24/20 | 25 mg | | | | mg 25 mg, Oral, ONCE, Tue | | 17 7:01 | | | | | 02/23/17 at 0715, For 1 dose, | | AM PDT | | | | | Pre-op | | | | | | + +-------+ +-------+---+---+ +---+---+ | | | +---+---+ + +-------+ +-------+---+---+ | propranolol (INDERAL) tablet 20 | Given | 02/27/20 | 20 mg | | | | mg 20 mg, Oral, 3 TIMES DAILY, | | 17 8:50 | | | | | First dose on Tue02/23/17 at | | AM PDT | | | | | 1500, Post-op/Phase II | | | | | | + +-------+ +-------+---+---+ +-------+ +-------+---+---+ | Given | 02/26/20 | 20 mg | | | | | 17 9:55 | | | | | | PM PDT | | | | +-------+ +-------+---+---+ | Given | 02/26/20 | 20 mg | | | | | 17 2:20 | | | | | | PM PDT | | | | +-------+ +-------+---+---+ +---+---+ | | | +---+---+ + +-------+ +--------+---+---+ | senna (SENOKOT) tablet 8.6 mg | Given | 02/27/20 | 8.6 mg | | | | 8.6 mg, Oral, 2 TIMES DAILY, | | 17 8:50 | | | | | First dose on Tue02/23/17 at | | AM PDT | | | | | 2100, If docusate ineffective or | | | | | | | not ordered, Post-op/Phase II | | | | | | + +-------+ +--------+---+---+ +-------+ +--------+---+---+ | Given | 02/26/20 | 8.6 mg | | | | | 17 9:55 | | | | | | PM PDT | | | | +-------+ +--------+---+---+ | Given | 02/26/20 | 8.6 mg | | | | | 17 8:24 | | | | | | AM PDT | | | | +-------+ +--------+---+---+ +---+---+ | | | +---+---+ + +-------+ + +---+---+ | sulfaSALAzine (AZULFIDINE) | Given | 02/27/20 | 1,500 mg | | | | tablet 1,500 mg 1,500 mg, Oral, | | 17 8:50 | | | | | 2 TIMES DAILY, First dose (after | | AM PDT | | | | | last modification) on Tue02/23/17 | | | | | | | at 2100, Post-op/Phase II | | | | | | + +-------+ + +---+---+ +-------+ + +---+---+ | Given | 02/26/20 | 1,500 mg | | | | | 17 9:54 | | | | | | PM PDT | | | | +-------+ + +---+---+ | Given | 02/26/20 | 1,500 mg | | | | | 17 8:24 | | | | | | AM PDT | | | | +-------+ + +---+---+ +---+---+ | | | +---+---+ + +-------+ +--------+---+---+ | tamsulosin (FLOMAX) capsule 0.4 | Given | 02/27/20 | 0.4 mg | | | | mg 0.4 mg, Oral, DAILY AFTER | | 17 8:51 | | | | | BREAKFAST, First dose on Tue | | AM PDT | | | | | 02/23/17 at 1500, Do not open | | | | | | | capsule., Post-op/Phase II | | | | | | + +-------+ +--------+---+---+ +-------+ +--------+---+---+ | Given | 02/26/20 | 0.4 mg | | | | | 17 8:24 | | | | | | AM PDT | | | | +-------+ +--------+---+---+ | Given | 02/25/20 | 0.4 mg | | | | | 17 10:21 | | | | | | AM PDT | | | | +-------+ +--------+---+---+ +---+---+ | | | +---+---+ + +-------+ +------+---+---+ | tiZANidine (ZANAFLEX) tablet 4 | Given | 02/24/20 | 4 mg | | | | mg 4 mg, Oral, EVERY 6 HOURS | | 17 2:53 | | | | | PRN, Muscle spasms, Starting Wed | | PM PDT | | | | | 02/23/17 at 1438, Post-op/Phase II | | | | | | + +-------+ +------+---+---+ +---+---+ | | | +---+---+ + +-------+ +-------+---+---+ | ziprasidone (GEODON) capsule 80 | Given | 02/27/20 | 80 mg | | | | mg 80 mg, Oral, 2 TIMES DAILY | | 17 8:51 | | | | | WITH BREAKFAST & DINNER, First | | AM PDT | | | | | dose on Tue02/23/17 at 1700, | | | | | | | Reproductive Risk: Use | | | | | | | appropriate handling precautions. | | | | | | | May cause prolongation of QT | | | | | | | interval. Take with food., | | | | | | | Post-op/Phase II | | | | | | + +-------+ +-------+---+---+ +-------+ +-------+---+---+ | Given | 02/26/20 | 80 mg | | | | | 17 5:39 | | | | | | PM PDT | | | | +-------+ +-------+---+---+ | Given | 02/26/20 | 80 mg | | | | | 17 8:25 | | | | | | AM PDT | | | | +-------+ +-------+---+---+ +---+---+ | | | +---+---+ documented in this encounter
--- OUTSIDE RECORDS SUMMARY | ~2020-07-14 | XMS | Encounter Summary ---
Demographics + + + | Address | [address] | | | [place] [address] | + + + | Home Phone | | + + + | Preferred Language | Unknown | + + + | Marital Status | | + + + | Mandaeism Affiliation | Unknown | + + + | Race | White | + + + | Ethnic Group | Not or | + + + Author + + + | Author | [facility] | | | and [place] | + + + | Organization | [facility] | | [...] [place] | | | | | [id number] | | + + + + + | Mao Rea | ECON | Unknown | | + + + + + | Meredith Rea | ECON | Unknown | | + + + + + Care Team Providers + +------+ + | Care Social Worker Psychiatric Name | Role | Phone | + [...] + + | 02/20/ | Office | [facility] | Pedro Riggins | Pseudoarthrosis of | | 2017 | Visit | NEUROSURGERY [address] | D PA-C [address] | lumbar spine | | | | [address] | [address] | (Primary Dx); S/P | | | | [place] | [place] | lumbar fusion | | | | [id number] | [id number] | | | | | [phone] | | | +--------+---------+ + + + [...] from the original. Pedro Riggins PA-C [address] [facility], [address] [place], [place] [id number] FAX: NEUROSURGERY FOLLOW-UP CHIEF COMPLAINT: Chief Complaint [...] that he had a RFA done in [place], [place] in December 2017. He reports that [...] Intrinsics 5 5 Ulnar Intrinsics 5 5 Hogshead Head Matcher Strength 5 5 Hip Flexion 5 4+ [...] SIGNED BY: Pedro Riggins PA-C, 02/20/2018 11:33 I, Pedro Riggins PA-C, personally performed the services described in this documentat ion, as scribed by Shannan Cook CMA in my presence, and it is both accurate and complete. 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
--- OUTSIDE RECORDS SUMMARY | ~2020-07-14 | XMS | Encounter Summary ---
Demographics + + + | Address | [address] | | | [place] [address] | + + + | Home Phone | | + + + | Preferred Language | Unknown | + + + | Marital Status | | + + + | Latter-Day Affiliation | Unknown | + + + | Race | White | + + + | Ethnic Group | Not or | + + + Author + + + | Author | [facility] | | | and [place] | + + + | Organization | [facility] | | | [...] [place], [place] | | | | | [address] | | + + + + + | Mao Rea | ECON | Unknown | | + + + + + | Meredith Rea | ECON | Unknown | | + + + + + Care Team Providers + +------+ + | Care Bar Host Name | Role | Phone | + +------+ + | Brandon Juarez MD | PCP | | + +------+ + Reason for Visit +---------+--------+ + | Reason | Onset | Comments | | | Date | | +---------+--------+ + | Results | 11/03/ | Confirm he completed X-rays | | | 2016 | | +---------+--------+ + Encounter Details +--------+ + + + + | Date | Type | Department | Care Team | Description | +--------+ + + + + | 11/03/ | Telephone | [facility] | Ender Mora | Results (Confirm he | | 2016 | | NEUROSURGERY [address] | [address] | completed X-rays) | | | | [address] | [address] [place], [place] | | | | | [place] | [address] | | | | | [address] | | | | | | [phone] | | | +--------+ + + + [...] this encounter Miscellaneous Notes Telephone Encounter - Shannan Cook Melting Supervisor - 11/03/2016 1:45 PM RAYMUNDODestephen lou david his x-rays and CT scan and they are ready to be reviewed on I-site documented in this encounter Plan of Treatment Not on filedocumented as of this encounter Visit Diagnoses Not on filedocumented in this encounter"
--- OUTSIDE RECORDS SUMMARY | ~2020-07-14 | XMS | Encounter Summary ---
Demographics + + + | Address | [address] | | | [place] [address] | + + + | Home Phone | | + + + | Preferred Language | Unknown | + + + | Marital Status | | + + + | Adventist Affiliation | Unknown | + + + | Race | White | + + + | Ethnic Group | Not or | + + + Author + + + | Author | and [facility] | | | and [place] | + + + | Organization | [facility] | | | and [...] [place] | | | | | [phone] | | + + + + + | Mao Rea | ECON | Unknown | | + + + + + | Meredith Rea | ECON | Unknown | | + + + + + Care Team Providers + +------+ + | Care Edge Setter Name | Role | Phone | + [...] | [facility] | MD [address] | | | | | IMAG[address] | [address] | | | | | [address] | [place] [address] | | | | | [place] [address] | | | | | | [phone] | | | +--------+ + + + [...]
--- OUTSIDE RECORDS SUMMARY | ~2020-07-14 | XMS | Encounter Summary ---
Demographics + + + | Address | [address] | | | [place] [address] | + + + | Home Phone | | + + + | Preferred Language | Unknown | + + + | Marital Status | | + + + | Sikh Affiliation | Unknown | + + + | Race | White | + + + | Ethnic Group | Not or | + + + Author + + + | Author | [facility] | | | and [place] | + + + | Organization | [facility] | | [...] [place], [place] | | | | | [address] | | + + + + + | Mao Rea | ECON | Unknown | | + + + + + | Meredith Rea | ECON | Unknown | | + + + + + Care Team Providers + +------+ + | 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
--- OUTSIDE RECORDS SUMMARY | ~2020-07-14 | XMS | Encounter Summary ---
Demographics + + + | Address | [address] | | | [place] [address] | + + + | Home Phone [...] + + + | Author | and [facility] | [...] [place], [place] | | | | | [address] | | + + + + + | Mao Rea | ECON | Unknown | | + + + + + | Meredith Rea | ECON | Unknown | | + + + + + Care Team Providers + +------+ + | Care Crisis Counselor Name | Role | Phone | + [...] | | | | | Lumbar | [place], | [address] | | | | | radiculopath | Luis Carlos Lerner MD | [place], | | | | | y | [address] | [place] | | | | | Procedures | [place] | [address] | | | | | AR INJECT | [facility], [place] | Phone: | | | | | ANES/STEROID | [address] | [phone] | | | | | FORAMEN | Phone: | Fax: | | | | | LUMBAR/SACRA | [phone] | [phone] | | | | | L W IMG | Fax: | | | | | | GUIDE ,1 | [phone] | | | | | | LEVEL AR | | | | | | | TRIAMCINOLON | | | | | | | E ACET INJ | | | | | | | NOS, 10 MG | | | | | | | APPT 07/12 @ | | | | | | | 10:00 Left | | | | | | | L5-S1 | | | | | | | TFESI-Referr | | | | | | | al from | | | | | | | Charles Jr | | | +--------+--------+ + + + + Encounter Details +--------+ + + + + | Date | Type | Department | Care Team | Description | +--------+ + + + + | 07/12/ | Hospital | [facility] | Luis Carlos Jiménez | Lumbar radiculopathy | | 2016 | Encounter | MED CTR XRAY [address] | [address], [address] | | | | | [place] | [place], [place] | | | | | [place] [address] | [phone] | | | | | [phone] | | | | | | | Front Counter Attendant, Chilo | | | | | | [place] [...] +---------+ + + | Blood Pressure | 129/78 | 07/12/2016 10:29 AM | | | | | PDT | | + +---------+ + + | Pulse | 59 | 07/12/2016 10:29 AM | | | | | [...] | FL EPIDURAL STEROID | Routin | 07/12/2016 | Lumbar | Results for this | | INJECTION LUMBAR | e | 10:24 AM | radiculopathy | procedure are in the | | TRANSFORAMINAL | | PDT | | results section. | + +--------+ + + + documented in this encounter Results FL KELLY Lumbar Transforaminal (07/12/2016 10:24 AM PDT) + + | Specimen | + + | | + + + + + | Narrative | Performed At | + + + | 07/12/2016 Transforaminal Epidural Steroid Injection Diagnosis: | [facility] | | Lumbar radiculopathy ICD-10 Code M54.16 Uziel Silas Rea | [facility] | | presents to the fluoroscopy suite for a fluoroscopically-guided [facility] | | L5-S1 transforaminal epidural steroid injection as part of | - IMAGING | | conservative management for chronic pain with lumbar radiculopathy | | | and degenerative disk disease. After informed consent was | | | obtained, the patient lay in the prone position on the fluoroscopy | | | table. The area was identified under fluoroscopic guidance. The | | | area was prepped and draped in sterile fashion. A 25-gauge, | | | 1.5-inch needle was inserted into this region and approximately 3 mL | | | of buffered 1% lidocaine was infused. Then, a 22-gauge spinal | | | needle was inserted into the posterior superior transforaminal space | | | and advanced into the epidural space under fluoroscopic guidance. | | | Confirmation into the epidural space was obtained with infusion of | | | approximately 1 mL of Omnipaque contrast which showed epidural flow | | | as well as nerve sheath flow. Then, a combination of 1.5 mL of | | | 1% lidocaine and 1.5 mL of 6 mg/mL Celestone was infused. The | | | patient tolerated the procedure well without complications. Pre- and | | | post-procedure blood pressures were stable. The patient was given | | | verbal as well as written follow-up instructions. Prior to | | | the start of the procedure, the following were performed and/or | | | verified, including correct patient identity, correct site/side marked | | | and visible, agreement on the procedure to be done, correct patient | | | positioning and an accurate procedure consent form. Any safety | | | precautions based on clinical history and/or medication use have been | | | addressed. I personally performed the procedure above. | | | Estimated blood loss: Minimal Complications: None Findings: As | | | expected Anesthesia: Local 1% Lidocaine | | + + + + + + + + | Performing | Address | City/State/Zipcode | Phone Number | | Organization | | | | + + + + + | [facility] | [address] | [place] | [phone] | | [facility] | | [address] | | | - IMAGING | | [...] | | | + +--------+ +------+------+------+ | betamethasone (CELESTONE | Given | 07/12/20 | 9 mg | | | | SOLUSPAN) injection 9 mg 9 mg, | | 16 10:30 | | | | | Other, EVERY 24 HOURS INTERVAL, | | AM PDT | | | | | First dose on 07/12/16 at | | | | | | | 1045, For 2 doses, Shake well. | | | | | | | Not for IV use., | | | | | | + +--------+ +------+------+------+ +---+---+ | | | +---+---+ + +-------+ +-------+---+---+ | iohexol (OMNIPAQUE 300) 300 | Given | 07/12/20 | 3 mLs | | | | mg/mL injection 3 mL 3 mL, | | 16 10:50 | | | | | INTRATHECAL, ONCE, 07/12/16 at | | AM PDT | | | | | 1045, For 1 dose | | | | | | + +-------+ +-------+---+---+ +---+---+ | | | +---+---+ + +-------+ +-------+---+---+ | lidocaine (PF) 1% injection 2 | Given | 07/12/20 | 2 mLs | | | | mL 2 mL, Other, ONCE, Mon | | 16 10:30 | | | | | 07/12/16 at 1045, For 1 dose | | AM PDT | | | | + +-------+ +-------+---+---+ +---+---+ | | | +---+---+ + +-------+ +-------+---+---+ | lidocaine buffered 1% injection | Given | 07/12/20 | 5 mLs | | | | 5 mL 5 mL, Other, ONCE, Mon | | 16 10:24 | | | | | 07/12/16 at 1045, For 1 dose | | AM PDT | | | | + +-------+ +-------+---+---+ +---+---+ | | | +---+---+ documented in this encounter"
--- OUTSIDE RECORDS SUMMARY | ~2020-07-14 | XMS | Encounter Summary ---
Demographics + + + | Address | [address] | | | [place] [address] | + + + | Home Phone [...] + + + | Author | [facility] | | | and [place] | + + + | Organization | [facility] | | [...] [place] | | | | | [address] | | + + + + + | Mao Rea | ECON | Unknown | | + + + + + | Meredith Rea | ECON | Unknown | | + + + + + Care Team Providers + +------+ + | Care Dock Loader Name | Role | Phone | + +------+ + | Sherie Vela PA-C | PCP | | + +------+ + Reason for Visit + +--------+ + | Reason | Onset | Comments | | | Date | | + +--------+ + | Follow-up | 04/21/ | | | | 2016 | | + +--------+ + | Post-op Problem | 04/21/ | | | | 2016 | | + +--------+ + Encounter Details +--------+ + + + + | Date | Type | Department | Care Team | Description | +--------+ + + + + | 04/21/ | Telephone | [facility] | Koby George MD | Follow-up; Post-op | | 2017 | | NEUROSURGERY [address] | [address] | Problem | | | | [address] | [place] [address] | | | | | [place] | [phone] | | | | | [address] | | | | | | [phone] | | | +--------+ + + + [...] this encounter Miscellaneous Notes Telephone Encounter - Pedro Riggins PA-C - 04/22/2017 12:21 PM PDTI agree with recomm ended therapies. The fact that the pain started with PT tells me he needs to take it easy fo r a little giving himself time to heal. This should improve with time. elephone Encounter - Jaquelin Mars RN - 04/21/2017 9:01 AM PDTS/p 02/23/2017 L5-S1 Transforaminal Lumbar Interbody Fusion, Fitzgerald rdware Revision @ L2-3, L3-4, L4-5 Last seen 04/05/2017 (Vaishnavi)- MDP ordered Next appointment 05/25/2017 Patient's , Henny, reported MDP effective to relieve symptoms, but for the past 2 days with PT (aqua therapy) and walking a mile a day, symptoms have returned and are as intolerab le as when evaluated at 04/05/2017 office visit. Denies any injury and denies any new symptoms. Discussed at length the importance of limiting activities to "as tolerated" and avoiding pu shing past pain to achieve distance goals to try to speed recovery. Advised that patient is likely to be prone to flares from irritated nerves that are trying to heal and inflammation from advancing activities too quickly and he needs to back off before symptoms flare for be st healing. Advised that patient return to frequent, gentle ambulation, 1-2 minutes every 4 5 minutes and otherwise rest until flare subsides. Also encouraged other soothing measures as tolerated such as light massage, stretching, showers, soaking in PT therapy pool, ice, he at; take pain medications with consecutive doses to provide better pain coverage until flare subsides. When symptoms subside, patient may advance activities very slowly, as tolerated and avoid subsequent flares. Advised if symptoms persist or worsen with rest to call back f or appointment to evaluate further. If pain becomes severe, patient has difficulty walking, loses feeling or strength in extremities or loses bowel/ bladder control to present to ED. Henny verbalized understanding and agreement. Advised that message will be sent to provider to review and advise further if necessary. Lupis roland. document ed in this encounter Plan of Treatment Not on filedocumented as of this encounter Visit Diagnoses Not on filedocumented in this encounter
--- OUTSIDE RECORDS SUMMARY | ~2020-07-14 | XMS | Encounter Summary ---
Demographics + + + | Address | [address] | | | [place] [address] | + + + | Home Phone [...] [facility] | | | and [place] | [...] [place] | | | | | [address] | | + + + + + | Mao Rea | ECON | Unknown | | + + + + + | Meredith Rea | ECON | Unknown | | + + + + + Care Team Providers + +------+ + | Care Clinical Support Nurse Name | Role | Phone | + +------+ + | Sherie Vela PA-C | ENA | | + +------+ + Encounter Details +--------+ + + + + | Date | Type | Department | Care Team | Description | +--------+ + + + + | 11/24/ | Orders Only | [facility] [place] | Luis Carlos Jiménez | Lumbar radiculopathy | | 2019 | | PHYSIATRY [address] | TMD [address] | (Primary Dx) | | | | [address] | [place] | | | | | [place] | [address] | | | | | [address] | | | | | | [phone] | | | +--------+ + + + [...]
--- OUTSIDE RECORDS SUMMARY | ~2020-07-14 | XMS | Encounter Summary ---
Demographics + + + | Address | [address] | | | [place] [address] | + + + | Home Phone | | + + + | Preferred Language | Unknown | + + + | Marital Status | | + + + | Synagogue Affiliation | Unknown | + + + | Race | White | + + + | Ethnic Group | Not or | + + + Author + + + | Author | [facility] | | | and [place] | [...] [place], [place] | | | | | [address] | | + + + + + | Mao Rea | ECON | Unknown | | + + + + + | Meredith Rea | ECON | Unknown | | + + + + + Care Team Providers + +------+ + | Care Laborer Chemical Processing Name | Role | Phone | + +------+ + | Brandon Juarez MD | PCP | | + +------+ + Encounter Details +--------+ + + + + | Date | Type | Department | Care Team | Description | +--------+ + + + + | 08/07/ | Abstract | [facility] [place] | Koby George MD | Arthritis (Primary | | 2013 | | NEUROSURGERY [address] | [address] | Dx); Cancer (HCC); | | | | [address] [facility] [address] | [place] [address] | Anxiety; Hypothyroid | | | | [place] | [phone] |Hypothyroid | | | | [address] | | | | | | [phone] | | | +--------+ + + + [...]
--- OUTSIDE RECORDS SUMMARY | ~2020-07-14 | XMS | Encounter Summary ---
Demographics + + + | Address | [address] | | | [place] [address] | + + + | Home Phone [...] + + + | Author | [facility] | | | and [place] | + + + | Organization | [facility] | | | [...] [place], [place] | | | | | [address] | | + + + + + | Mao Rea | ECON | Unknown | | + + + + + | Meredith Rea | ECON | Unknown | | + + + + + Care Team Providers + +------+ + | Care Heavy Cleaner Name | Role | Phone | [...] + + | 12/10/ | Telephone | [facility] | Koby George MD | Procedure | | 2016 | | NEUROSURGERY [address] | [address] | | | | | [facility] [address] | [place] [address] | | | | | [place] | [phone] | | | | | [address] | | | | | | [phone] | | | +--------+ + + + [...] Notes Telephone Encounter - Emily Padilla - 12/17/2016 10:46 AM PSTHenny Rea is advised p er Dr. George. She will update Uziel, and his Medical Device Engineer. elephone Encounter - Koby George MD - 12/17/2016 7:59 AM PSTThat sounds fine. Koby George elephone Encounter - St sahuEmily - 12/10/2016 10:39 AM PSTDean is scheduled to proceed with surgery on 02/23. He is taking Methotrexate, Arava, and Xeljanz for his rheumatoid arthritis. Advised to stop these medications 1 week prior to surgery, and to confirm additional recommendations w ith his Medical Device Engineer. He verbalized understanding. Please advise if you have additional recommendations regarding these medications? Electronically signed by Emily Padilla at 0 12/10/2016 10:43 AM PSTdocumented in this encounter Plan of Treatment Not on filedocumented as of this encounter Visit Diagnoses Not on filedocumented in this encounter"
--- OUTSIDE RECORDS SUMMARY | ~2020-07-14 | XMS | Clinical Summary ---
Demographics + + + | Address | [address] | | | [place] [address] | + + + | Home Phone [...] + + + | Author | [facility] | | | and [place] | + + + | Organization | [facility] | | | [...] [place] | | | | | [address] | | + + + + + | Mao Rea | ECON | Unknown | | + + + + + | Meredith Rea | ECON | Unknown | | + + + + + Care Team Providers + +------+ + | Care Rfid Systems Architect Name | Role | Phone | + [...] | Multiple | | | 0 | 08 | | Activ | | Vitamins-Minerals (A | | | | 04/19 | | e | | THRU Z ADVANCED) | | | | 11 | | | | TABS | | | | | | | + +-----+ +---------+------+------+-------+ +---+ + | | Additional | | | InformationPatient | | | taking differently: | | | 1 tablet Oral DAILY, | | | Reported on | | | 08/03/2018 10:01 AM | +---+ + + + +--------+---+------+---+-------+ | Ascorbic Acid | Take 500 mg by mouth | | 0 | 09/1 | | Activ | | (VITAMIN C [...] + +--------+---+------+---+-------+ | VRAYLAR 4.5 MG | Take 1.5 mg by mouth | | 0 | 12/0 | | Activ | | capsule | . | | | 7/20 | | e [...] | + + +--------+---+------+---+-------+ | mycophenolate | Take 500 mg by mouth | | 0 | | | Activ | | (CELLCEPT) 500 MG | 2 times daily One | | | | | e | | tablet | in the morning and | | | | | | | | one at night. | | | | | | + [...] 3 times daily. 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 [...] 52 bpm. | | Ongoing tremor affecting vcxkdcz9808/25/2016: Labs: Sodium 138, | | potassium 4.2, [...] Description | +--------+---------+ + + + | 07/10/ | Office | Rehabilitation | Winnie Merino, | Cognitive | | 2020 | Visit | | Speech Pathologist | communication | | | | | | disorder | +--------+---------+ + + + | 07/01/ | Office | Rehabilitation | Winnie Merino, | Cognitive | | 2019 | Visit | | Speech Pathologist | communication | | | | | | disorder (Primary | | | | | | Dx) | +--------+---------+ + + + | 06/24/ | Office | Rehabilitation | Winnie Merino, | Cognitive | | 2020 | Visit | | Speech Pathologist | communication | | | | | | disorder | +--------+---------+ + + + | 06/19/ | Office | Rehabilitation | Winnie Merino, | Cognitive | | 2019 | Visit | | Speech Pathologist | communication | | | | | | disorder | +--------+---------+ + + + | 06/10/ | Office | Rehabilitation | Winnie Merino, | Cognitive | | 2020 | Visit | | Speech Pathologist | communication | | | | | | disorder | +--------+---------+ + + + | 06/03/ | Office | Rehabilitation | Winnie Merino, | Cognitive | | 2019 | Visit | | Speech Pathologist | communication | | | | | | disorder | +--------+---------+ + + + | 05/27/ | Office | Rehabilitation | Winnie Merino, | Cognitive | | 2019 | Visit | | Speech Pathologist | communication | | | | | | disorder | +--------+---------+ + + + | 05/22/ | Office | Rehabilitation | Winnie Merino, | Cognitive | | 2019 | Visit | | Speech Pathologist | communication | | | | | | disorder | +--------+---------+ + + + | 05/15/ | Office | Rehabilitation | Winnie Merino, | Cognitive | | 2019 | Visit | | Speech Pathologist | communication | | | | | | disorder | +--------+---------+ + + + | 05/06/ | Office | Rehabilitation | Winnie Merino, | Cognitive | | 2019 | Visit | | Speech Pathologist | communication | | | | | | disorder | +--------+---------+ + + + | 04/25/ | Office | Rehabilitation | Winnie Merino, | Cognitive | | 2019 | Visit | | Speech Pathologist | communication | | | | | | disorder | +--------+---------+ + + + | 04/18/ | Office | Rehabilitation | Winnie Merino, | Parkinson's disease | | 2019 | Visit | | Speech Pathologist | ([facility]) (Primary Dx); | | | | | Rashad Jose, | Cognitive | | | | | Aide | communication | | | | | | disorder [...] | + + + + | INFLUENZA, [id number], | 09/11/2009 | | | UNSPECIFIED | [...] + + + | Blood Pressure | 136/86 | 04/18/2020 12:53 PM | | | | | PDT | | + + + + + | Pulse | 70 | 04/18/2020 12:53 PM | | | | | PDT | | + + + + + | Temperature | 36.8 C (98.3 F) | 01/22/2020 10:18 AM | | | | | PDT | | + + + + + | Respiratory Rate | 16 | 01/22/2020 10:18 AM | | | | | PDT | | + + + + + | Oxygen Saturation | 96% | 04/18/2020 12:53 PM | | | | | PDT | | + + + + + | Inhaled Oxygen | - | - | | | Concentration | | | | + + + + + | Weight | 97.2 kg (214 lb 4.8 | 01/22/2020 10:18 AM | | | | oz) | PDT | | + + + + + | Height | 172.7 cm (5' 8") | 06/27/2019 8:31 AM | | | | | PDT | | + + + + + | Body Mass Index | 32.58 | 06/27/2019 8:31 AM | | | | | PDT | | + + + + + Plan of Treatment + + + + + | Health Maintenance | Due Date | Last | Comments | | | | Done | | + + + + + | Hepatitis C | | | | | Screening | 6 | | | + + + + + | Med Mgmt: ALT | | | | | | 6 | | | + + + + + | Med Mgmt: AST | | | | | | 6 | | | + + + + + | Med Mgmt: HBA1C | | | | | | 6 | | | + + + + + | Med Mgmt: HDL | | | | | | 6 | | | + + + + + | Med Mgmt: LDL | | | | | | 6 | | | + + + + + | Med Mgmt: Marenisco | | | | | | 6 | | | + + + + + | Med Mgmt: TSH | | | | | | 6 | | | + + + + + | Med Mgmt: Total | | | | | Cholesterol | 6 | | | + + + + + | Med Mgmt: | | | | | Triglycerides | 6 | | | + + + + + | Med Mgmt: Vit D | | | | | | 6 | | | + + + + + | Medication | | | | | Management | 6 | | | + + [...] | + + + + + | Med Mgmt: HCT | | 02/19/20 | | | | 7 | 17, | | | | | 12/03/19 | | | | | 15, | | | | | 11/27/19 | | | | | 15 | | + + + + + | Med Mgmt: HGB | | 02/19/20 | | | | 7 | 17, | | | | | 12/03/19 | | | | | 15, | | | | | 11/27/19 | | | | | 15 | | + + + + + | Med Mgmt: PLT | | 02/19/20 | | | | 7 | 17, | | | | | 12/03/19 | | | | | 15, | | | | | 11/27/19 | | | | | 15 | | + + + + + | Med Mgmt: WBC | | 02/19/20 | | | | 7 | 17, | | | | | 12/03/19 | | | | | 15, | | | | | 11/27/19 | | | | | 15 | | + + + + + | Med Mgmt: Cr | | 02/19/20 | | | | 7 | 17, | | | | | 06/17/20 | | | | | 16, | | | | | 11/27/19 | | | | | 15 | | + + + + + | Med Mgmt: RBC | | 02/19/20 | | | | 7 | 17, | | | | | 12/03/19 | | | | | 15, | | | | | 11/27/19 | | | | | 15 | | + + + + + | Med Mgmt: BUN | | 02/19/20 | | | | 8 | 17, | | | | | 06/17/20 | | | | | 16, | | | | | 11/27/19 | | | | | 15 | | + + + + + | Med Mgmt: eGFR | | 02/19/20 | | | | 8 | 17, | | | | | 06/17/20 | | | | | 16, | | | | | 11/27/19 | | | | | 15 | | + + + + + | Vaccine: Influenza | | 08/17/20 | | | (#1) | 0 | 19, | | | | | 07/30/20 | | | | | 18, | | | | | 07/25/20 | | | | | 18, | | | | | Addition | | | | | al | | | | | history | | | | | exists | | + + + + + | Vaccine: | Completed | 08/12/20 | | | Pneumococcal 65+ | | 17, | | | | | 08/11/20 | | | | | 13 | | + + + + + | AAA Screening | Completed | 12/21/19 | | | | | 19 | | + + + + + [...] Chip 15cc 4-10mm - | Bone | Aerographer | RTI | | 07/27/ | [id number] | | [id number]: Qty: 1 on | | ior: | BIOLOGICS | | 2020 | | | 02/23/2017 by Koby George, | | Spine | INC - RBFOSTER | | | /[id number] | | at [facility] | | Lumbar | | | | 8-030 | | [facility] | | | | | | / | + +--------+--------+ +--------+--------+--------+ | Tlif Oblique [id number] 12deg | Generi | Aerographer | NUVASIVE - | | | [id number] | | - [id number]: Qty: 1 | c | ior: | NVSV | | | 2 / / | | on 02/23/2017 by Koyb George | | Spine | | | | | | MD Blanca at [facility] | | Lumbar | | | | | | [facility] | | | | | | | + +--------+--------+ +--------+--------+--------+ | Tlif Oblique [id number] 4deg | Generi | Aerographer | NUVASIVE - | | | [id number] | | - [id number]: Qty: 1 | c | ior: | NVSV | | | 4 / / | | on 02/23/2017 by Koby George | | Spine | | | | | | MD [place] at [facility] | | Lumbar | | | | | | [facility] | | | | | | | + +--------+--------+ +--------+--------+--------+ | Vadim Ti Prebent Lordtc 130mm - | Generi | Aerographer | NUVASIVE - | | | [id number] | | [id number]: Qty: 1 | c | ior: | NVSV | | | 0 / / | | on 02/23/2017 by Koby George | | Spine | | | | | | MD [place] at [facility] | | Lumbar | | | | | | [facility] | | | | | | | + +--------+--------+ +--------+--------+--------+ | Vadim Ti Prebent Lordtc 140mm - | Generi | Aerographer | NUVASIVE - | | | [id number] | | [id number]: Qty: 1 | c | ior: | NVSV | | | 0 / / | | on 02/23/2017 by Koby George | | Spine | | | | | | MD [place] at [facility] | | Lumbar | | | | | | [facility] | | | | | | | + +--------+--------+ +--------+--------+--------+ | Graft Infuse Bone Kit Xs - | Graft | Aerographer | HALEY | | 03/30/ | [id number] | | [id number]: Qty: 2 on | | ior: | DANEK - DIV | | 2018 | 0 / | | 02/23/2017 by Koby George, | | Spine | MEDTRONIC | | | /[id number] | | at [facility] | | Lumbar | - SFDK | | | [id number] | | [facility] | | | | | | | + +--------+--------+ +--------+--------+--------+ | Putty Patti 10cc Dbm - | Graft | Aerographer | MEDTRONIC - | | 10/20/ | [id number] | | [id number]: Qty: 1 on | | ior: | MEDT | | 2019 | | | 02/23/2017 by Koby George, | | Spine | | | | /[id number] | | at [facility] | | Lumbar | | | | 6-017 | | [facility] | | | | | | / | + +--------+--------+ +--------+--------+--------+ | Screw Set - | Screw | Aerographer | NUVASIVE - | | | [id number] | | [id number]: Qty: 10 | | ior: | NVSV | | | 0 / / | | on 02/23/2017 by Koby George | | Spine | | | | | | MD [place] at [facility] | | Lumbar | | | | | | [facility] | | | | | | | + +--------+--------+ +--------+--------+--------+ | Screw Polyax Precept 7.5x55 - | Screw | Aerographer | NUVASIVE - | | | [id number] | | [id number]: Qty: 1 | | ior: | NVSV | | | 5A / / | | on 02/23/2017 by Koby George | | Spine | | | | | | MD [place] at [facility] | | Lumbar | | | | | | [facility] | | | | | | | + +--------+--------+ +--------+--------+--------+ | Screw Polyax Prcpt 8.5x80mm - | Screw | Aerographer | NUVASIVE - | | | [id number] | | [id number]: Qty: 1 | | ior: | NVSV | | | 0A / / | | on 02/23/2017 by Koby George | | Spine | | | | | | MD [place] at [facility] | | Lumbar | | | | | | [facility] | | | | | | | + +--------+--------+ +--------+--------+--------+ | Screw Polyax Prcpt 8.5x70mm - | Screw | Aerographer | NUVASIVE - | | | [id number] | | [id number]: Qty: 1 | | ior: | NVSV | | | 0A / / | | on 02/23/2017 by Koby George | | Spine | | | | | | MD [place] at [facility] | | Lumbar | | | | | | [facility] | | | | | | | + +--------+--------+ +--------+--------+--------+ | Screw Polyax Prcpt 8.5x55mm - | Screw | Aerographer | NUVASIVE - | | | [id number] | | [id number]: Qty: 2 | | ior: | NVSV | | | 5A / / | | on 02/23/2017 by Koby George | | Spine | | | | | | MD [place] at [facility] | | Lumbar | | | | | | [facility] | | | | | | | + +--------+--------+ +--------+--------+--------+ | Nazario Armstrong 10cc Dbm - | | N/A: | OSTEOTECH - | | 08/05/ | [id number] | | [id number]: Qty: 1 | | Spine | OSTT | | 2016 | /[id number] | | on 12/02/2014 by Koby George | | Lumbar | | | | 5-027 | | MD [place]anca at [facility] | | | | | | / | | [facility] | | | | | | | + +--------+--------+ +--------+--------+--------+ | Cage Xl Wide [id number] 10deg - | | | NUVASIVE - | | | [id number] | | [id number]: Qty: 1 | | | NVSV | | | 0 / / | | on 12/02/2014 at [facility] | | | | | | | | [facility] | | | | | [facility] | | | | | | | + +--------+--------+ +--------+--------+--------+ | Bone Matrix Osteocel Pro 5cc | | N/A: | NUVASIVE - | | 03/02/ | [id number] | | - [id number]: Qty: 1 | | Spine | NVSV | | 2019 | 5 | | on 12/02/2014 by Koby George | | Lumbar | | | | /[id number] | | MD [place]anca at [facility] | | | | | | 0519 / | | [facility] | | | | | | | + +--------+--------+ +--------+--------+--------+ | Cage Peek Xlw L 10d | | N/A: | NUVASIVE - | | | [id number] | | [id number] - | | Spine | NVSV | | | 0 / / | | [id number]: Qty: 1 on | | Lumbar | | | | | | 12/02/2014 by Koby George | | | | | | | | at [facility] | | | | | | | | [facility] | | | | | | | + +--------+--------+ +--------+--------+--------+ | Imp Spn Spcr Xlw 10d [id number] | | N/A: | NUVASIVE - | | | [id number] | | - [id number]: Qty: 1 | | Spine | NVSV | | | 5 / / | | on 12/02/2014 by Koby George | | Lumbar | | | | | | MD Blanca at [facility] | | | | | | | | [facility] | | | | | | | + +--------+--------+ +--------+--------+--------+ | Screw Polyax Precept 6.5x50 - | | | NUVASIVE - | | | [id number] | | [id number]: Qty: 1 | | | NVSV | | | 0A / / | | on 12/02/2014 by Koby George | | | | | | | | MD [place] at [facility] | | | | | | | | [facility] | | | | | | | + +--------+--------+ +--------+--------+--------+ | Screw Polyax Precept 7.5x55 - | | | NUVASIVE - | | | [id number] | | [id number]: Qty: 2 | | | NVSV | | | 5A / / | | on 12/02/2014 by Koby George | | | | | | | | MD [place] at [facility] | | | | | | | | [facility] | | | | | | | + +--------+--------+ +--------+--------+--------+ | Precept ScrewImplanted: Qty: | | | | | | [id number] | | 2 on 12/02/2014 by Koby George | | | | | | 0 / / | | MD [place] at [facility] | | | | | | | | [facility] | | | | | | | + +--------+--------+ +--------+--------+--------+ | Vadim Ti Prebent Lordtc 110mm - | | | NUVASIVE - | | | [id number] | | [id number]: Qty: 2 | | | NVSV | | | 0 / / | | on 12/02/2014 at [facility] | | | | | | | | [facility] | | | | | | | | [facility] | | | | | | | + +--------+--------+ +--------+--------+--------+ | Screw Set - | | | NUVASIVE - | | | [id number] | | [id number]: Qty: 8 on | | | NVSV | | | 0 / / | | 12/02/2014 by Koby George, | | | | | | | | MD at [facility] | | | | | | | | [facility] | | | | | | [...] + +--------+ | MEDICARE | MEDICA | [id number] | 12/01/18 | [phone] | | Medica | | | RE | | 80-Pre | 5 | | re | | | PART A | | sent | | | | | | AND B | | | | | | + +--------+ +--------+ + +--------+ | MEDICARE | MEDICA | [id number] | 12/01/18 | [phone] | | Medica | | | RE | | 80-Pre | 5 | | re | | | PART A | | sent | | | | | | AND B | | | | | | + +--------+ +--------+ + +--------+ | MEDICARE | MEDICA | [id number] | 12/01/18 | [phone] | | Medica | | | RE | | 80-Pre | 5 | | re | | | PART A | | sent | | | | | | AND B | | | | | | + +--------+ +--------+ + +--------+ | MODA | MODA | [id number] | 01/30/20 | [phone] | [address] | Indemn | | | HEALTH | | 10-Pre | 9 | [phone] | ity | | | MDCR | | sent | | [place], | | | | [place] | | | | [place] [address] | | + +--------+ +--------+ + +--------+ | MODA | MODA | [id number] | 10/31/19 | [phone] | [address] | Indemn | | | HEALTH | | 19-Pre | 9 | [phone] | ity | | | MDCR | | sent | | [place], | | | | [place] | | | | [place] [address] | | + +--------+ +--------+ + +--------+ + +--------+ +--------+ + + | Guarantor Name | Accoun | Relation to | Date | Phone | Billing Address | | | t Type | Patient | of | | | | | | | | | | + +--------+ +--------+ + + | Uziel Rea | Person | Self [birth year] | [address] | | | al/Fam | | 1945 | [phone] | [place] [address] | | | scot | | | 8 (Home) | | + +--------+ +--------+ + + | Uziel Rea | Person | Self | [birth year] | | [address] | | | al/Fam | | 1945 | [phone] | [place] [address] | | | scot | | | 8 (Home) | | + +--------+ +--------+ + + | Uziel Rea | Person | Self | [birth year] | [address] | | | al/Fam | | 1945 | [phone] | [place] [address] | | | scot | | | 8 (Home) | | + +--------+ +--------+ + + Advance Directives + + + + + | Type | Date Recorded | Patient | Explanation | | | | Nut Picker | | + + + + + | Power of | | | | | Marine Service Station Attendant | | | | + + + [...]
--- OUTSIDE RECORDS SUMMARY | ~2020-07-14 | XMS | Encounter Summary ---
Demographics + + + | Address | [address] | | | [place] [address] | + + + | Home Phone [...] | Author | [facility] | [...] [place] | | | | | [address] | | + + + + + | Mao Rea | ECON | Unknown | | + + + + + | Meredith Rea | ECON | Unknown | | + + + + + Care Team Providers + +------+ + | Care Steel Worker Name | Role | Phone | + +------+ + | Sherie Vela PA-C | PCP | | + +------+ + Reason for Visit + + + | Reason | Comments | + + + | Follow-up | 6 month PO | + + + Encounter Details +--------+---------+ + + + | Date | Type | Department | Care Team | Description | +--------+---------+ + + + | 08/09/ | Office | [facility] | Koby George MD | S/P lumbar fusion | | 2017 | Visit | NEUROSURGERY [address] | [address] | (Primary Dx) | | | | [facility] [address] | [place] [address] | | | | | [place] | [phone] | | | | | [address] | | | | | | [phone] | | | +--------+---------+ + + + [...] + + + | Blood Pressure | 113/62 | 08/09/2017 12:46 PM | | | | | PDT | | + + + + + | Pulse | 56 | 08/09/2017 12:46 PM | | | | | PDT | | + + + + + | Temperature | - | - | | + + + + + | Respiratory Rate | 16 | 08/09/2017 12:46 PM | | | | | PDT | | + + + + + | Oxygen Saturation | - | - | | + + + + + | Inhaled Oxygen | - | - | | | Concentration | | | | + + + + + | Weight | 95.3 kg (210 lb) | 08/09/2017 12:46 PM | | | | | PDT | | + + + + + | Height | 172.7 cm (5' 8") | 08/09/2017 12:46 PM | | | | | PDT | | + + + + + | Body Mass Index | 31.93 | 08/09/2017 12:46 PM | | | | | PDT [...] encounter Progress Notes Koby George MD - 08/09/2017 12:30 PM PDTFormatting of this note might be different from t tu original. Koby George MD [address] [facility], [address] [place], [place] [id number] FAX: NEUROSURGERY FOLLOW-UP CHIEF COMPLAINT: Chief Complaint Patient presents with Follow-up 6 month PO HISTORY OF PRESENT ILLNESS: The patient is a 72 y.o. male that had a L5-S1 Transforaminal Lumbar Interbody Fusion, Hardware Revision @ L2-3, L3-4, L4-5 (Posterior Spine Lumbar) for b ack and left leg pain in January 2017. He returns and overall is doing okay. The patient com plains of lower back pain. He thinks it is better since his last visit. His leg symptoms ar e still improving as well although he does notice some numbness. He is still taking pain me dications at this point. The patient has had no issues with his surgical siteHe is working with a pain clinic. CURRENT MEDICATIONS: Current Outpatient Prescriptions Medication Sig [...] capsule Take 300 mg by mouth Daily. methotrexate (PF) 25 mg/mL injection Inject 0.8 [...] mg by mouth.) 120 tablet 0 propranolol (INDERAL LA) 120 mg SR capsule Take 120 mg by mouth Daily. simvastatin (ZOCOR) 40 [...] drugs. REVIEW OF SYSTEMS GENERALLY: No fever, no [...] has numbness/pain of legs, awake with numbness/pain, raj n in back, tremor/shaking, and headaches. PSYCHIATRIC: + depression, no sleep disorders, no [...] h istory of cancer. RHEUMATOLOGIC: No joint arthritis, + rheumatoid arthritis. INTERIM PHYSICAL EXAMINATION: Blood pressure 113/62, pulse 56, resp. rate 16, height 1.727 m (5' 8"), weight 95.3 kg (210 lb). Body mass index is 31.93 kg/m. GENERAL: Uziel Rea is in no acute distress with unlabored respirations. SPINE: The patient s incisions are well healed. EXTREMITIES: No lower extremity edema. NEUROLOGICAL EXAMINATION: MENTAL STATUS: The patient is awake, alert, and oriented. He follows simple and complex commands MOTOR EXAM: Motor strength is stable. SENSORY EXAM: The sensory examination is unchanged when compared to the preoperative exam. RADIOGRAPHIC REVIEW: The patient s x-rays show stable instrumentation and alignment and were reviewed with the patient today. Increased bony fusion is noted but it is not complete. ASSESSMENT: Encounter Diagnosis Name Primary? S/P lumbar fusion Yes Past Medical History: Diagnosis Date Anxiety Arthritis [...] improve down from 65 to now 45. I increased the patient s activities now [...] deliberately increas e his activities with walking. superintendent terminal pain medication should be continued and tapered by their primary care provider or pain management. The patient needs to follow-up in 6 months with x-rays for re-evaluation. ELECTRONICALLY SIGNED BY: Koby George MD, 08/09/2017 13:19 documented in this encou nter Plan of Treatment + +---------+--------+ + + | Name | Type | Priori | Associated Diagnoses | Order Schedule | | | | ty | | | + +---------+--------+ + + | XR Lumbar Spine 2 or | Imaging | Routin | S/P lumbar fusion | Expected: 02/05/2018 | | 3 Vw | | e | | (Approximate), | | | | | | Expires: 08/08/2018 | + +---------+--------+ + + documented as of this encounter Visit Diagnoses + + | Diagnosis | + + | S/P lumbar fusion - Primary Arthrodesis status | + + documented in this encounter
--- OUTSIDE RECORDS SUMMARY | ~2020-07-14 | XMS | Encounter Summary ---
Demographics + + + | Address | [address] | | | [place] [address] | + + + | Home Phone | | + + + | Preferred Language | Unknown | + + + | Marital Status | | + + + | Amish Affiliation | Unknown | + + + | Race | White | + + + | Ethnic Group | Not or | + + + Author + + + | Author | [facility] | | | and [place] [...] [place], [place] | | | | | [address] | | + + + + + | Mao Rea | ECON | Unknown | | + + + + + | Meredith Rea | ECON | Unknown | | + + + + + Care Team Providers + +------+ + | Care Conduit Reamer Operator Name | Role | Phone | + +------+ + | Brandon Juarez MD | PCP | | + +------+ + Reason for Visit + +--------+ + | Reason | Onset | Comments | | | Date | | + +--------+ + | Surgery Appointment | 02/21/ | check in instructions | | | 2016 | | + [...] | | [address] | [place] [address] | instructions ) | | | | [place] | [phone] | | | | | [id number] | | | | | | [phone] | | | +--------+ + + + [...] this encounter Miscellaneous Notes Telephone Encounter - Jus Lundberg, Survey Rodman - 02/21/2017 1:35 PM VALENTINAPatilizett ts spouse is updated of these instructions at this time. All presurgical check-in instructions given Surgery date: 02/23/17 Check-in Time: 6am (OR Schedule states procedure start time 745am) No solids or liquids after midnight the night before surgery. Follow the cleansing instructions provided beginning the night before surgery after you marisela wer or bathe. No showering the morning of surgery. Please do not wear jewelry, contact lenses, nail faroese (on fingers or toes), or make-up to surgery check-in. If you have dentures, hearing aids, or glasses please bring the cases with you to check-in. Medications instructions: Tumeric, Multi Vitamin, vitamin c, fish oil, glucosamine, arava, methotrexate, Surgical Admit Anticipated Disposition reviewed and correct: "Yes Confirmation of procedure/approval: "Yes". [facility] Plan of Treatment Not on filedocumented as of this encounter Visit Diagnoses Not on filedocumented in this encounter
--- OUTSIDE RECORDS SUMMARY | ~2020-07-14 | XMS | Encounter Summary ---
Demographics + + + | Address | [address] | | | [place] [address] | + + + | Home Phone [...] Author | [facility] | | | and [...] [place], [place] | | | | | [address] | | + + + + + | Mao Rea | ECON | Unknown | | + + + + + | Meredith Rea | ECON | Unknown | | + + + + + Care Team Providers + +------+ + | Care Needle Molder Name | Role | Phone | + +------+ + | Brandon Juarez MD | PCP | | + +------+ + Encounter Details +--------+ + + + + | Date | Type | Department | Care Team | Description | +--------+ + + + + | 01/07/ | Hospital | [facility] | Ender Mora | S/P lumbar fusion | | 2015 | Encounter | MED CTR XRAY [address] | [address] | | | | | [place] | [address] [place], [place] | | | | | [place] [address] | [id number] | | | | | [phone] | | | +--------+ + + + [...] 3 VW 01/07/2015 11:19 AM HISTORY: | [facility] | | Postoperative. COMPARISON: 12/03/2014. FINDINGS: There is | [facility] | | stable hardware for posterior fusion from L2 through L5 with interbody | [facility] | | hardware at these levels. Stable [...] + | Alexis, Rad Results In - 01/07/2015 11:40 AM PDT [...] [address] | [place] | [phone] | | [facility] | | [address] | | | - IMAGING | | | | + + + + + documented in this encounter Visit Diagnoses + + | Diagnosis | + + | S/P lumbar fusion Arthrodesis status | + + documented in this encounter"
--- OUTSIDE RECORDS SUMMARY | ~2020-07-14 | XMS | Encounter Summary ---
Demographics + + + | Address | [address] | | | [place] [address] | + + + | Home Phone | | + + + | Preferred Language | Unknown | + + + | Marital Status | | + + + | Mormonism Affiliation | Unknown | + + + | Race | White | + + + | Ethnic Group | Not or | + + + Author + + + | Author | [facility] | | | and [place] | + + + | Organization | [facility] | | | and [place] | + + + | Address | Unknown | + + + | Phone | Unavailable | + + + Support + + + + + | Name | Relationship | Address | Phone | + + + + + | Henny Rea | ECON | [address] | | | | | [place] | | | | | [address] | | + + + + + | Mao Rea | ECON | Unknown | | + + + + + | Meredith Rea | ECON | Unknown | | + + + + + Care Team Providers + +------+ + | Care Fence Rider Name | Role | Phone | + +------+ + | Sherie Vela PA-C | PCP | | + +------+ + Reason for Visit + +--------+ + | Reason | Onset | Comments | | | Date | | + +--------+ + | CPAP Follow Up | 09/25/ | | | | 2017 | | + +--------+ + Encounter Details +--------+ + + + + | Date | Type | Department | Care Team | Description | +--------+ + + + + | 09/25/ | Telephone | [facility] | Jarvis Dawson, | CPAP Follow Up | | 2017 | | SLEEP DISORDER [address] | | | | | [address] [place] | [place] [address] | | | | | [place] [address] | [place] | | | | | [phone] | [address] | | | | | | | [...] Telephone Encounter - Palma Silva RN - 09/25/2018 1:06 PM PSTFaxed CPAP order to [facility] in [facility] and called in [facility] prescription documented in this encounter Plan of Treatment Not on filedocumented as of this encounter Visit Diagnoses Not on filedocumented in this encounter"
--- OUTSIDE RECORDS SUMMARY | ~2020-07-14 | XMS | Encounter Summary ---
Demographics + + + | Address | [address] | | | [place] [address] | + + + | Home Phone | | + + + | Preferred Language | Unknown | + + + | Marital Status | | + + + | Yarsani Affiliation | Unknown | + + + | Race | White | + + + | Ethnic Group | Not or | + + + Author + + + | Author | [facility] | | | and [place] | + + + | Organization | [facility] | | [...] [place], [place] | | | | | [address] | | + + + + + | Mao Rea | ECON | Unknown | | + + + + + | Meredith Rea | ECON | Unknown | | + + + + + Care Team Providers + +------+ + | Care Peanut Grader Name | Role | Phone | + [...] | | | lordosis | | [address] | | | | | (acquired) | | [place], | | | | | Other | | [place] [address] | | | | | lordosis | | Phone: | | | | | (acquired) | | [phone] | | | | | Procedures | | Fax: | | | | | [place] | | [phone] | | | | | ARTHRODESIS | [...] + + + + | 12/02/ | [facility] | [facility] | Koby George MD | Acquired | | 2014 | Encounter | MED CTR XRAY [address] | [address] | spondylolisthesis | | | | [address] | [place] [address] | | | | | [place] [address] | [phone] | | | | | [phone] | | | +--------+ + + + [...] + +--------+ + + + | ZACHARY DESAI STATS NO | Routin | 12/02/2014 | Acquired | Results for this | | CHARGE | e | 5:22 PM | spondylolisthesis | procedure are in the | | | | PST | | results section. | + +--------+ + + + documented in this encounter Results ZACHARY Jerome Statjackson No Charge (12/02/2014 5:22 PM PST) + + | Specimen | + + | | + + + + + | Narrative | Performed At | + + + | No Radiologist interpretation, please see Chart Review. | [facility] | | | [facility] | | | [facility] | | | - IMAGING | + + + + + | Procedure Note | + + | 12/02/2014 5:24 PM PST No Radiologist interpretation, please see Chart Review. | + + + + + + + | Performing | Address | City/State/Zipcode | Phone Number | | Organization | | | | + + + + + | [facility] | [address] | [place] | [phone] | | [facility] | | [address] | | | - IMAGING | | | | + + + + + documented in this encounter Visit Diagnoses + + | Diagnosis | + + | Acquired spondylolisthesis | + + documented in this encounter"
--- OUTSIDE RECORDS SUMMARY | ~2020-07-14 | XMS | Encounter Summary ---
Demographics + + + | Address | [address] | | | [place] [address] | + + + | Home Phone | | + + + | Preferred Language | Unknown | + + + | Marital Status | | + + + | Rastafarian Affiliation | Unknown | + + + | Race | White | + + + | Ethnic Group | Not or | + + + Author + + + | Author | [facility] | | | and [place] | + + + | Organization | [facility] | | | [...] [place] | | | | | [address] | | + + + + + | Mao Rea | ECON | Unknown | | + + + + + | Meredith Rea | ECON | Unknown | | + + + + + Care Team Providers + +------+ + | Care Hide Dyer Name | Role | Phone | + +------+ + | Sherie Vela PA-C | PCP | | + +------+ + Reason for Visit + +--------+ + | Reason | Onset | Comments | | | Date | | + +--------+ + | Imaging Only | 02/07/ | 1Y PO XR | | | 2017 | | + +--------+ + Encounter Details +--------+ + + + + | Date | Type | Department | Care Team | Description | +--------+ + + + + | 02/07/ | Telephone | [facility] | Ender Mora | Imaging Only (1Y PO | | 2017 | | NEUROSURGERY [address] | [address] | XR) | | | | [address] [place] | | | | | [place] | [id number] | | | | | [address] | | | | | | [phone] | | | +--------+ + + + [...] this encounter Miscellaneous Notes Telephone Encounter - Milena Oro Special Effects Artist - 02/16/2018 1:38 PM PDT1 year p ost op Imaging of the lumbar spine is available on [employer] for review. Please advise Faby fonseca signed by Milena Oro Special Effects Artist at 02/16/2018 1:43 PM PDTTelephone Milena Escobedo Special Effects Artist - 02/15/2018 3:52 PM PDTLetter sent via [facility] reSooqini uesting imaging. Will postpone and follow up to make sure imaging was sent tomorrow. Electro nically signed by Rodriguez Landeros at 02/15/2018 3:53 PM PDTTelephone Milena Carvalho Special Effects Artist - 02/15/2018 3:50 PM PDTLetter sent via [facility] t o [facility] Radiology department requesting recent imaging be pushed to [facility]. Electronically sign ed by Rodriguez Landeros at 02/15/2018 3:52 PM PDTTelephone Encounter - Regi Olivera - 02/15/2018 3:23 PM PDTI called Uziel and rescheduled his appointment to Kole figueroa. He let me know that he completed his xrays this week. elephone Encounter - Giuliana Kebede Special Effects Artist - 02/07/2018 9:02 AM PDTCalled patient to remind him he's due for his one year post op xra y. Left voicemail to complete imaging prior to his upcoming appointment with Dr. George/Ender Mora PA-C on 02/21/2018. Order set to [facility]. documented in this encounter Plan of Treatment Not on filedocumented as of this encounter Visit Diagnoses Not on filedocumented in this encounter"
--- OUTSIDE RECORDS SUMMARY | ~2020-07-14 | XMS | Encounter Summary ---
Demographics + + + | Address | [address] | | | [place] [address] | + + + | Home Phone | | + + + | Preferred Language | Unknown | + + + | Marital Status | | + + + | Uatsdin Affiliation | Unknown | + + + | Race | White | + + + | Ethnic Group | Not or | + + + Author + + + | Author | [facility] | | | and [place] | + + + | Organization | [facility] | | | [...] [place], [place] | | | | | [address] | | + + + + + | Mao Rea | ECON | Unknown | | + + + + + | Meredith Rea | ECON | Unknown | | + + + + + Care Team Providers + +------+ + | Care Order Builder Loader Name | Role | Phone | [...] Closed | | Radiology | Diagnoses | Sands, | Ws Mri | | | | | Lumbar | Logan Rios MD | [address] | | | | | radiculopath | [address] | [place], | | | | | y Left leg | [address] | [place] | | | | | pain Left | [place], | [address] | | | | | leg weakness | [place] [address] | Phone: | | | | | Numbness | Phone: | [phone] | | | | | of left foot | [phone] | Fax: | | | | | History of | Fax: | [phone] | | | | | lumbar | [phone] | | | | | | fusion [...] | Comments | + + + | Leg Pain | left hamstring | + + + Evaluate & Treat (Routine) +--------+--------+ + + + + | Status | Reason | Specialty | Diagnoses / | Referred By | Referred To | | | | | Procedures | Contact | Contact | +--------+--------+ + + + + | Closed | | Physical | Diagnoses | Larry, | Logan Sands | | | | Medicine and | Hamstring | Brandon | [place] Rios MD [address] | | | | Rehabilitatio | injury | MD Sohail | [address] | | | | n | | [address] | [place], | | | | | | [place] | [place] [address] | | | | | | [place], [place] | Phone: | | | | | | [address] | [phone] | | | | | | Phone: | Fax: | | | | | | [phone] | [phone] | | | | | | Fax: | | | | | | | [phone] | | +--------+--------+ + + + + Encounter Details +--------+---------+ + + + | Date | Type | Department | Care Team | Description | +--------+---------+ + + + | 06/17/ | Office | [facility] | Logan Sands, | Lumbar radiculopathy | | 2016 | Visit | PHYSIATRY [address] | MD [address] | (Primary Dx); Left | | | | [address] [place], [place] | leg pain; Left leg | | | | [place], [place] | [id number] | weakness; Numbness | | | | [address] | | of left foot; | | | | [phone] | | History of lumbar | | | | | | fusion | +--------+---------+ + + + Social [...] + + + | Blood Pressure | 132/75 | 06/17/2016 8:48 AM | | | | | PDT | | + + + + + | Pulse | 65 | 06/17/2016 8:48 AM | | | | | PDT | | + + + + + | Temperature | - | - | | + + + + + | Respiratory Rate | 16 | 06/17/2016 8:48 AM | | | | | PDT | | + + + + + | Oxygen Saturation | - | - | | + + + + + | Inhaled Oxygen | - | - | | | Concentration | | | | + + + + + | Weight | 93 kg (205 lb) | 06/17/2016 8:48 AM | | | | | PDT | | + + + + + | Height | 175.3 cm (5' 9") | 06/17/2016 8:48 AM | | | | | PDT | | + + + + + | Body Mass Index | 30.27 | 06/17/2016 8:48 AM | | | | | PDT [...] Instructions Patient Instructions Logan Sands MD - 06/17/2016 9:22 AM PDTLaboratory tests have bee n requested. Please go to the lab to complete your laboratory testing. The results of your laboratory testing will be reviewed at your next appointment. If your labratory results de monstrate any emergent results the clinic will contact you. A MRI has been requested. Please complete the requested imaging. Within one week, you marisela uld receive a call to schedule your MRI. If you have not heard from anyone within one week, please call the clinic. The results of your MRI will be reviewed at your next appointment. If your MRI demonstrates any emergent results, the clinic will contact you. Return to the clinic after MRI has been complete. documented in this encounter Progress Notes Logan Sands MD - 06/17/2016 9:43 AM PDT [facility] [address] [facility] [id number] OFFICE NOTE LOGAN SANDS JR, MD Patient: RACHEL REA Admitting: MR #: [id number] LOC: PT TYPE: Adm Date: 06/17/2016 : 1945 PHYSICAL MEDICINE REHABILITATION PROGRESS NOTE DATE OF : 1945. PRIMARY CARE PROVIDER: Brandon Juarez MD. DATE OF SERVICE: 06/17/2016. PATIENT IDENTIFICATION: A 71-year-old male with left posterior thigh pain, left calf and foot numbness, history of previous lumbar fusion from L2 through L5. HISTORY OF PRESENT ILLNESS: The patient was last seen by me approximately 2 years ago. A t that time, he was having back pain and L3 radiculopathy. The patient went on and had a l umbar fusion from L2 through L5, approximately a year and a half ago. Following his surger y, he was feeling extraordinarily well. No back pain, no radicular symptoms. He reports that approximately 4-5 months ago, he developed left leg pain, numbness, and weakness. He indicates that symptoms may be getting progressively worse. He denies any back pain at thi s time. He indicates that he participated in physical therapy trying to treat his left leg symptoms. He indicates that physical therapy seemed to be making him only worse. He has developed a tremor. He has been working with a neurologist. He reports that the current t heory is that his tremor is the result of Geodon. The medication was discontinued. He re ports that his tremor still persists, but seems to be improving slightly. He indicates that his pain at worst is a 7/10 on a numerical pain scale. While he is seate d in the clinic pain is a 0/10 on a numerical pain scale. Pain occurs intermittently throu ghout each day. Pain occurs every day. Pain is sharp in quality. Pain is brought on by s tanding up and walking. Pain is relieved by sitting down. He indicates that, while seate d in the clinic, he is comfortable. He indicates that if he were to stand and walk, pain i n the leg and numbness in the foot and calf would occur. He has numbness in the entirety o f the left foot, also in the posterior aspect of the left foreleg. He reports pain runnin g down the back of the left thigh. He denies any pain, numbness, tingling or weakness in t he right lower extremity. He reports a feeling of weakness in the left leg. He reports th at it is difficult to put weight onto the toes of the left foot. He reports that he has bl adder urgency. He denies bowel incontinence. He denies saddle anesthesia. He has not had any interventional injections since his leg symptoms have recurred. He has already tried physical therapy. He has tried anti-inflammatory medication. He has history of rheumatoid arthritis. ALLERGIES: NO KNOWN DRUG ALLERGIES. CURRENT MEDICATIONS: Vitamin C 500 mg daily. Calcium carbonate with vitamin D daily. Folic acid daily. Diclofenac/Misoprostol 75/0.2 mg 1 tablet daily. Duloxetine 30 mg twice daily. Gabapentin 800 mg 3 times per day. Arava 10 mg daily. Levothyroxine 75 mcg daily. Cannabis 1-5 puffs twice daily as needed. Methotrexate. Multivitamins with minerals daily. Prilosec daily. Zocor 40 mg daily. Sulfasalazine 1500 mg daily. UPDATE OF MEDICAL HISTORY: He has developed tremor. It is felt that tremor might be rela david to medication Geodon. Geodon has been discontinued. He has history of depression, his tory of colon cancer in 2003. He has history of arthritis, anxiety, and hypothyroidism. Ronald salazar also has history of hearing loss. PAST SURGICAL HISTORY: He has had colon surgery, kidney stone surgery, shoulder surgery, tooth extraction, L2 through L5 fusion, he has had a hernia repair, tonsillectomy, prostate surgery. FAMILY MEDICAL HISTORY: His parents are . In his family, there is history of hea rt disease, mental illness, substance abuse, suicide, and heart attack. SOCIAL MEDICAL HISTORY: He denies consumption of alcohol. He uses marijuana. He quit sm oking in 1980. Previously smoked 2 packs a day for 20 years. He is now retired. PHYSICAL EXAMINATION: VITAL SIGNS: Heart rate 65, respiratory rate 16, blood pressure 132/75, weight 205 pounds , height 5 feet 9 inches. GENERAL: No acute distress. Alert to person, place, time and situation. Accompanied by his . He has a resting tremor, both hands. It seems to occur spontaneously and escala te and then also subside and have periods of time without tremor. HEENT: Extraocular muscles intact. Sclerae are clear. NECK: Limited range of motion, appropriate for age. Spurling's test negative. EXTREMITY: Reveals no clubbing, cyanosis or edema. BACK: Demonstrates lumbar fusion scarring. Seated straight leg raise positive on the lef t, negative on the right. Ilan's test negative bilaterally. NEUROLOGICAL: Exam demonstrates reduced sensation in left lower extremity, predominantly over L5 and S1 dermatomes. Reflexes normal over patella bilaterally. Achilles reflex 1+ o n the left compared to 2+ on the right. Motor examination demonstrates 5/5 hip flexion, kn ee flexion, knee extension, ankle dorsiflexion, and strength in both lower extremities. T here is clearly weakness in the left lower extremity with ankle plantar flexion compared to right ankle plantar flexion. Ankle plantar flexion on the left is 4/5 compared to 5/5 on the right. Gait is antalgic. DATABASE: Lumbar x-ray, 09/2015, imaging reviewed by me demonstrates L2 through L5 fusion . Lumbar MRI imaging personally reviewed by me from 05/2014 demonstrates severe spinal steno sis at L2-3 This is prior to his fusion surgery. ASSESSMENT: 1. Left L5 and/or S1 radiculopathy, ICD-10 M54.16. 2. Left leg pain, ICD-10 M79.605. 3. Left leg weakness, ICD-10 M62.1. 4. Numbness, left foot, ICD-10 R20.8. 5. History of lumbar fusion from L2 through L5, ICD-10 Z98.89. 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 Ronald salazar had a fusion from L2 through L5. At this time, he presents with significant weakness, nu mbness in the left leg following L5 and S1 distribution. I suspect he may have herniated d isc at L5-S1, impacting nerve roots at this level. He has tried physical therapy and fail ed, it was making his symptoms worse. He has had recent tremor. He has had issues with me dication Geodon, potentially causing tremor. Given that he has significant tremor persistin g, I do not wish to initiate new medication at this time, which may compound his tremor is sues. Since he has failed anti-inflammatory medications, physical therapy, has weakness on exam, findings consistent with lumbar radiculopathy and adjacent segment disease, I am requestin g a new MRI with contrast at this time. He has not had recent laboratory tests, testing hi s kidney function. I am requesting laboratory tests to measure kidney function prior to ronald im having MRI. Once he has completed MRI, he will return to clinic to review the imaging. Since he has already failed physical therapy, future considerations may include epidural s teroid injection. He is already on medication for neuropathic pain, gabapentin. Depending on the results of imaging may also consider neurosurgical consultation. Thank you for allowing me to be involved in the care of your patient. If you have any ques tions regarding the care of Mr. Rea, please do not hesitate to call. LOGAN SANDS JR, MD Dictated by LOGAN SANDS JR, MD 06/17/2016 09:43:44 Transcribed on 06/18/2016 10:20:46 by wendy job# [id number] Confirmation #: [id number] cc: BRANDON JUAREZ MD Logan Sands MD - 06/17/2016 9:23 AM PDTThis office note has been dictated. Report Confirmation# [id number] signed by Logan Sands MD at 06/17/2016 9:43 AM PDTdocumented in this encounter Plan of Treatment Not on filedocumented as of this encounter Results MRI Lumbar Spine w wo Contrast (06/23/2016 10:56 AM PDT) + + | Specimen | + + | | + + + + + | Narrative | Performed At | + + + | MRI LUMBAR SPINE W WO CONTRAST. 06/23/2016 10:25 AM HISTORY: | [facility] | | History of L2-L5 fusion, now with pain, numbness, weakness in left | [facility] | | L5-S1 radicular pattern. COMPARISON: MRI lumbar spine 06/26/2014 | [facility] | | and lumbar spine x-ray 10/21/2015 [...] | [facility] | [address] | [place] | [phone] | | [facility] | | [address] | | | - IMAGING | | | | + + + + + Basic Metabolic Panel (06/17/2016 9:55 AM PDT) [...] | | | | mmol/L | [facility] | | | | [...] | 0.85 | 0.60 - 1.30 | [facility] | | | | | mg/dL | [facility] | | | | | | MEDICAL | | | | | | CENTER - | | | | | | LABORATORY | | + + + + + + | eGFR, | >60Comment: GLOMERULAR | >=60 | [facility] [place] | | | non- | FILTRATION | mL/min/1.73m2 | [facility] | | | Samoan | RATE,ESTIMATED | | MEDICAL | | | | mL/min/1.31d0Ecyy than | | CENTER - | | [...] | ine Ratio | | | [facility] | | [...] ST. | [address] | [place] | [phone] | | [facility] | | [address] | | | - LABORATORY | | | | + + + + + documented in this encounter Visit Diagnoses + + | Diagnosis | + + | Lumbar radiculopathy - Primary Thoracic or lumbosacral neuritis or radiculitis, | | unspecified | + + | Left leg pain Pain in limb | + + | Left leg weakness Other musculoskeletal symptoms referable to limbs | + + | Numbness of left foot | + + | History of lumbar fusion | + + documented in this encounter
--- OUTSIDE RECORDS SUMMARY | ~2020-07-14 | XMS | Encounter Summary ---
Demographics + + + | Address | [address] | | | [place] [address] | + + + | Home Phone [...] + | Author | [facility] | [...] [place], [place] | | | | | [address] | | + + + + + | Mao Rea | ECON | Unknown | | + + + + + | Meredith Rea | ECON | Unknown | | + + + + + Care Team Providers + +------+ + | Care Master Fisher Name | Role | Phone | + +------+ + | Brandon Juarez MD | PCP | | + +------+ + Encounter Details +--------+ + + + + | Date | Type | Department | Care Team | Description | +--------+ + + + + | 11/27/ | Hospital | [facility] | Koby George MD | | | 2015 | Encounter | MED CTR LABORATORY | [address] [facility] | | | | | [address] | [place] [address] | | | | | [place] | [phone] | | | | | [address] | | | | | | [phone] | | | +--------+ + + + [...]
--- OUTSIDE RECORDS SUMMARY | ~2020-07-14 | XMS | Encounter Summary ---
Demographics + + + | Address | [address] | | | [place] [address] | + + + | Home Phone | | + + + | Preferred Language | Unknown | + + + | Marital Status | | + + + | Hindu Affiliation | Unknown | + + + | Race | White | + + + | Ethnic Group | Not or | + + + Author + + + | Author | [facility] | | | and [place] | + + + | Organization | [facility] | | [...] [place], [place] | | | | | [address] | | + + + + + | Mao Rea | ECON | Unknown | | + + + + + | Meredith Rea | ECON | Unknown | | + + + + + Care Team Providers + +------+ + | Care Drosophere Operator Name | Role | Phone | + +------+ + | Brandon Juarez MD | PCP | | + +------+ + Reason for Visit + +--------+ + | Reason | Onset | Comments | | | Date | | + +--------+ + | Medication Refill | 12/20/ | | | | 2014 | | + +--------+ + Encounter Details +--------+--------+ + + + | Date | Type | Department | Care Team | Description | +--------+--------+ + + + | 12/20/ | Refill | [facility] | Koby George MD | Medication Refill | | 2014 | | NEUROSURGERY [address] | [address] | | | | | [address] | [place] [address] | | | | | [place] | [phone] | | | | | [address] | | | | | | [phone] | | | +--------+--------+ + + + [...] Notes Telephone Encounter - Emily Padilla - 12/20/2014 1:57 PM PSTRefill request approved DOM Jha. Uziel is updated at this time. Rx sent via certified mail# [phone] elephone Encounter - Emily Padilla - 12/20/2014 12:11 PM Uziel Kinney's spouse, calls today to let Dr. George know that he is still having swelling o n the left side due to the hematoma. Per Dr. George: Please give this more time to subside on it's own. Medication Refill Request Procedure: L2-L5 Fusion Date of Surgery: 12/02/14 Medication requested: Hydrocodone 5/325 mg Current intake: 2 tabs po every 4 hours Date of last refill: 12/09/14 # of tabs left before medication runs out: He will run out before he sees DOM Sanderson on 01/07/15. Where is pain located?: Pain is primarily located in his left side, and left sided back pa in. Type of pain (constant, intermittent, sharp, dull)?: Pain is intermittent. Level 7/10 wit hout pain medication, 4-5/10 with medication. Send in the mail or call in to preferred pharmacy? Rx is attached. Please approve/deny. Please send in the mail. Address is verified at this time. documented in this enc ounter Plan of Treatment Not on filedocumented as of this encounter Visit Diagnoses + + | Diagnosis | + + | S/P lumbar fusion Arthrodesis status | + + documented in this encounter"
--- OUTSIDE RECORDS SUMMARY | ~2020-07-14 | XMS | Encounter Summary ---
Demographics + + + | Address | [address] | | | [place] [address] | + + + | Home Phone [...] Author | [facility] | [...] [place] | | | | | [address] | | + + + + + | Mao Rea | ECON | Unknown | | + + + + + | Meredith Rea | ECON | Unknown | | + + + + + Care Team Providers + +------+ + | Care Respiratory Supervisor Name | Role | Phone | + +------+ + | Sherie Vela PA-C | ENA | | + +------+ + Encounter Details +--------+ + + + + | Date | Type | Department | Care Team | Description | +--------+ + + + + | 05/24/ | Orders Only | [facility] | Ender Mora | S/P lumbar fusion | | 2017 | | NEUROSURGERY [address] | [address] | (Primary Dx) | | | | [address] | [address] [place], [place] | | | | | [place], [place] | [id number] | | | | | [address] | | | | | | [phone] | | | +--------+ + + + [...]
--- OUTSIDE RECORDS SUMMARY | ~2020-07-14 | XMS | Encounter Summary ---
Demographics + + + | Address | [address] | | | [place] [address] | + + + | Home Phone | | + + + | Preferred Language | Unknown | + + + | Marital Status | | + + + | Temple Affiliation | Unknown | + + + | Race | White | + + + | Ethnic Group | Not or | + + + Author + + + | Author | [facility] | | | and [place] | + + + | Organization | [facility] | | [...] [place] | | | | | [address] | | + + + + + | Mao Rea | ECON | Unknown | | + + + + + | Meredith Rea | ECON | Unknown | | + + + + + Care Team Providers + +------+ + | Care Manuscripts Curator Name | Role | Phone | + +------+ + | Sherie Vela PA-C | PCP | | + +------+ + Reason for Visit + +--------+ + | Reason | Onset | Comments | | | Date | | + +--------+ + | Medication | 02/28/ | | | Management | 2019 | | + +--------+ + Encounter Details +--------+ + + + + | Date | Type | Department | Care Team | Description | +--------+ + + + + | 02/28/ | Telephone | [facility] | Jarvis Dawson, | Medication | | 2018 | | NEUROLOGY [place] | [address] | Management | | | | [address] [facility], | [facility] [address] | | | | | [address] | [place] | | | | | [place] [address] | [address] | | | | | [phone] | | | +--------+ + + + [...] this encounter Miscellaneous Notes Telephone Encounter - Leela Jamison Aide - 03/07/2019 4:08 PM PDTPatients ca lled and want to let know how he was doing with his new medication Sinement. Electr onically signed by Kathy Boykin at 03/07/2019 4:10 PM PDTTelephone Encounter - Milena Oro, Carpet Floor Layer Apprentice - 02/28/2019 10:35 AM PDTCall from Uziel, he was rip Dawson to let him know hoe the new medication Sinemet was working. He has not had any i ssues with the medication and has noticed his tremor decreasing significantly. He is pleased with this medication and how well it is working. Just wanted to update Dr. Dawson. Faby fonseca signed by Milena Oro Carpet Floor Layer Apprentice at 02/28/2019 10:37 AM PDTdocumented in t his encounter Plan of Treatment Not on filedocumented as of this encounter Visit Diagnoses Not on filedocumented in this encounter"
--- OUTSIDE RECORDS SUMMARY | ~2020-07-14 | XMS | Encounter Summary ---
Demographics + + + | Address | [address] | | | [place] [address] | + + + | Home Phone | | + + + | Preferred Language | Unknown | + + + | Marital Status | | + + + | Bahai Affiliation | Unknown | + + + | Race | White | + + + | Ethnic Group | Not or | + + + Author + + + | Author | [facility] | | | and [place] | + + + | Organization | [facility] | | | [...] [place], [place] | | | | | [address] | | + + + + + | Mao Rea | ECON | Unknown | | + + + + + | Meredith Rea | ECON | Unknown | | + + + + + Care Team Providers + +------+ + | Care Skein Mercerizing Machine Operator Name | Role | Phone | + +------+ + | Brandon Juarez MD | PCP | | + +------+ + Encounter Details +--------+ + + + + | Date | Type | Department | Care Team | Description | +--------+ + + + + | 04/05/ | Hospital | [facility] | Ender Mora | S/P lumbar fusion | | 2017 | Encounter | MED CTR XRAY [address] | [address] | | | | | [place] | [address] [place], [place] | | | | | [place] [address] | [id number] | | | | | [phone] | | | +--------+ + + + [...] + | [address] | [address] | [place], [place] | [phone] | | [facility] | | [address] | | | - IMAGING | | | | + + + + + documented in this encounter Visit Diagnoses + + | Diagnosis | + + | S/P lumbar fusion Arthrodesis status | + + documented in this encounter"
--- OUTSIDE RECORDS SUMMARY | ~2020-07-14 | XMS | Encounter Summary ---
Demographics + + + | Address | [address] | | | [place] [address] | + + + | Home Phone [...] + + + | Author | [facility] | | | and [place] | + + + | Organization | [facility] | | | [...] [place] | | | | | [address] | | + + + + + | Mao Rea | ECON | Unknown | | + + + + + | Meredith Rea | ECON | Unknown | | + + + + + Care Team Providers + +------+ + | Care Biological Scientist Name | Role | Phone | + [...] Specialty | Pain Medicine | Diagnoses | Morgan, | Alejandro, | | | Services | | S/P lumbar | Ender | MD Devonte | | | Required | | fusion | [address] | [address] | | | | | Spondylolist | [address] | | | | | hesis of | [address]VE | B | | | | | lumbar | [place] | [place] | | | | | region | [address] | [address] | | | | | Pseudoarthro | Phone: | Phone: | | | | | sis of | [phone] | [phone] | | | | | lumbar spine | Fax: | Fax: | | | | | Lumbar | [phone] | [phone] | | | | | radiculopath | | | | | | | y Facet | | | | | | | arthropathy, | | | | | | | lumbar | | | | | | | [facility] | | | | | | | Neuroscience | | | | | | | Procedures | | | | | | | left VM | | | | | | | for referral | | | | | | | coord. req | | | | | | | call back | | | | | | | 3/18 HIM | | | | | | | 3/7 | | | +--------+ + + + + + Reason for Visit + + + | Reason | Comments | + + + | Follow-up | Review progress | + + + Encounter Details +--------+---------+ + + + | Date | Type | Department | Care Team | Description | +--------+---------+ + + + | 01/02/ | Office | [facility] | Ender Mora | S/P lumbar fusion | | 2019 | Visit | NEUROSURGERY [address] | [address] | (Primary Dx); | | | | [address] | [address] [place], [place] | Spondylolisthesis of | | | | [place] | [address] | lumbar region; | | | | [address] | | Pseudoarthrosis of | | | | [phone] | | lumbar spine; Lumbar | | | | | | radiculopathy; | | | | | | Facet [...] + + + | Blood Pressure | 130/78 | 01/02/2019 12:53 PM | | | | | PST | | + + + + + | Pulse | 70 | 01/02/2019 12:53 PM | | | | | PST [...] + + + + | Weight | 103.5 kg (228 lb 2.8 | 01/02/2019 12:53 PM | | | | oz) | PST | | + + + + + | Height | 172.7 cm (5' 8") | 01/02/2019 12:53 PM | | | | | PST | | + + + + + | Body Mass Index | 34.69 | 01/02/2019 12:53 PM | | | | | PST [...] encounter Patient Instructions Patient Instructions Abigail Thornton, Equipment Operating Engineer - 01/02/2019 12:30 PM PST - Let pain be your guide. If you are doing an activity that starts causing you pain back of f for a couple of days and ease back into it slowly. We don't want you taking any risks that do not need to be taken. - We will obtain a new MRI of your lumbar spine. We will call you once it has been approved for you to schedule it. Please give our office a call once you have completed it so we can review it and advice. T documented in this encounter Progress Notes Ender Mora PA-C - 01/02/2019 12:30 PM PSTFormatting of this note might be differ ent from the original. Ender Mora PA-C [address] [facility] [place] [address] [place] [address] FAX: NEUROSURGERY FOLLOW-UP CHIEF COMPLAINT: Chief Complaint Patient presents with Follow-up Review progress HISTORY OF PRESENT ILLNESS: The patient is a 73 y.o. male that was last seen in our office on 08/03/2018 with complaints of lower back pain. The lower back pain was more pronounced o n his left side and radiated into his left lower extremity. He had a L5-S1 Transforaminal L umbar Interbody Fusion, Hardware Revision @ L2-3, L3-4, L4-5 (Posterior Spine Lumbar) for ba ck and left leg pain in 02/23/17. He is still taking nerve medications and denies taking raj n medication. He also continues to use his bone growth stimulator. He is currently seeing Physiatry for treatment of his pain. He had a left L2-L3 transforami nal epidural steroid injection . The injection was completed on 03/24/18, with Dr. Ernesto talamantes. He reports having approximately 70% improvement directly following the injection, and 2 w eeks following the injection they experienced approximately 80% improvement to the pain. He received a second injection on 07/24/2018 and that 2 weeks following the injection he experie nced approximately 80% improvement to his back pain for about 3 and a half months. He returns and overall is feeling okay but frustreted. He describes that although he was ab le to get relief from the injection on his left side, he has been experiencing pain radiatin g from the lower back to the right hip and anterior right thigh. This new pain has been pres ent for about 3 weeks. He states that sitting down, and standing increase his pain. He is al so not able to sleep due to the pain he is having. He would also like [facility]. He asks if he should participate with another bone growth stimulator as he j geovanna completed his second bone growth stimulator. He recently had an abdominal CT scan. PAST MEDICAL HISTORY: Past Medical History: Diagnosis Date Actinic keratosis [...] when he is focused on other topics PAST SURGICAL HISTORY: Past Surgical History: Procedure Laterality Date COLECTOMY 2003 18" EYE MUSCLE SURGERY eye muscle correction HERNIA REPAIR 2011 umbilical hernia HERNIA REPAIR Right 2004 Groin hernia KIDNEY STONE SURGERY 1988 KNEE SURGERY Bilateral 1980 Knee arthroscopy LUMBAR LAMINECTOMY Posterior 02/23/2017 Procedure: L5-S1 Transforaminal Lumbar Interbody Fusion, Hardware Revision @ L2-3, L3-4, L 4-5; Surgeon: Koby George MD; Location: [facility] MAIN OR LUMBAR SPINE SURGERY 12/02/2014 L2-3, L3-4, L4-5 LAIF, L2-3, L3-4, L4-5 Posterior Instrumentation, L2-3 Decompression; La terality: N/A; Surgeon: Koby George MD; Location: [facility] MAIN OR PROSTATE SURGERY 2003 prostate trim SHOULDER SURGERY 1979 shoulder arthroscopic SINUS SURGERY 1989 TONSILLECTOMY TOOTH EXTRACTION 05/2014 CURRENT MEDICATIONS: Current Outpatient Prescriptions Medication [...] 300 mg by mouth 3 times daily. medical marijuana (CANNABIS) as needed. melatonin 5 mg tablet Take 10 mg [...] 1,000 mg by mouth 2 times daily. [place]-3 Fatty Acids (FISH OIL) 1200 MG CAPS [...] patient reports that he quit smoking about 38 years ago. His smoking use included Ciga rettes. He started smoking about 61 years ago. He has a 46.00 pack-year smoking history. He has never used smokeless tobacco. He reports that he does not drink alcohol or use drugs. FAMILY HISTORY: Family History Problem Relation Age of Onset Substance abuse Mother Mental illness Mother Suicide Mother 36 Early Mother 36 Depression Mother Substance abuse Father Heart disease Father Heart attack Father 68 Pacemaker Father Arthritis Son REVIEW OF SYSTEMS: GENERALLY: No fever, no night sweats, no anemia, no fatigue, + recent profound weight jose nges. EYES: No eye problems, no impaired sight, no use of corrective lenses, no eye injury, no d ouble vision, no transient blindness. EARS, NOSE, AND THROAT: No changes in taste or smell, + hearing difficulty, + ringing in t he ears, no ear drainage, no ear injury, no dizziness, no voice changes, no difficulty swall owing, + significant snoring, + sleep apnea/CPAP, no sinus problems, no major dental work. NEUROLOGICALLY: Please see the review of systems discussed above in the history of present illness. In addition, He has numbness and pain of legs, pain in back, and headaches. PSYCHIATRIC: No depression, no difficulty sleeping, no anxiety, no bipolar disorder. CARDIOVASCULAR: No heart attacks, no heart murmur, no heart fluttering, no chest pain, no ankle swelling. LUNG DISEASE: No shortness of breath, no cough, no tuberculosis, no bloody cough, no asthm a, + emphysema/COPD. GASTROINTESTINAL: No bowel disease, no nausea or vomiting, no rectal bleeding, + constipat ion, no fecal stool incontinence, no liver/gallbladder disease, no abdominal pain, no ulcers . KIDNEY DISEASE: + urinary frequency, no painful or difficult urination, no urinary inconti nence, no bladder problems, no impotence. ENDOCRINE: No diabetes, no thyroid disease, no osteopenia or osteoporosis, no breast drain age. SKIN: No breast lumps, no skin disease or skin changes, no rashes/itches. HEMATOLOGIC/LYMPHATIC: No enlarged lymph nodes, no easy or unusual bleeding, no personal h istory of cancer. RHEUMATOLOGIC: + joint pain/arthritis, + rheumatoid arthritis. PHYSICAL EXAMINATION: Blood pressure 130/78, pulse 70, height 1.727 m (5' 8"), weight 103.5 kg (228 lb 2.8 oz). B dylon mass index is 34.69 kg/m. GENERAL: Uziel Rea is in no acute distress with unlabored respirations. He does not appear uncomfortable throughout the exam today. HEENT: Head: Normocephalic/atraumatic with no areas of recent trauma. Eyes: Normal sclerae without icterus. Ears: No drainage or tenderness. Nasopharynx: Clear without drainage. Oropharynx: Clear without erythema. NECK (ANTERIOR): Supple and without palpable masses. CHEST: Clear to ausculation without crackles or wheeze. HEART: Regular rate and rhythm without murmurs. ABDOMEN: Soft, non-tender, non-distended, and without palpable masses. The patient is obes e. EXTREMITIES: No cyanosis, clubbing, or edema. Distal pulses are palpable. NEUROLOGICAL EXAM: MENTAL STATUS: He is awake, alert, and oriented. He follows simple and complex commands. His speech is fluent, he comprehends speech well, and he repeats well. He has no apparent deficits with short or terminal press operator memory. CRANIAL NERVES: II: Acuity is intact. [...] limited MUSCLE/ MOVEMENT: RIGHT LEFT Hip Flexion 4+ 4+ Hip Extension 5 5 Knee Flexion 5 5 Knee Extension 5 5 Dorsiflexion 4 4 Extensor Hallicus Longus 5 5 Plantarflexion 5 5 SENSORY EXAM: He has decreased sensation of light touch over the lower portion of the legs circumferentia lly. He has slightly better feeling in his thighs bilaterally but describes it more as a pa resthesia GAIT: Gait is unsteady TEST AND RADIOGRAPHIC REVIEW: His imaging was reviewed in detail today during the visit. The Abdominal CT from 12/21/2018 shows some modest improvement of bone growth in the posterior lateral effusion of the right facet at L5-S1. Anterior to the L5 and S1 vertebrae, there is some bridging osteophytes no david which has not completely bridged the 2 vertebrae's ASSESSMENT: NEUROSURGICAL DIAGNOSES: Encounter Diagnoses Name Primary? 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 The patient has had a difficult time controlling his discomfort. He is having some modest improvement of his bone growth at the L5-S1 segment. He unfortunately is now having increas ing pain in his right side into his anterior hip and anterior thigh.. The patient has progr essive symptoms despite non-operative measures. When the MRI has been completed he will contact us and let us know so that we can review t he MRI imaging and make further recommendations. I will also review the CT scan of his abdo men with as well as discuss the possibility of yet another bone growth stimulator and its benefits. He would obtain the additional recommended imaging and return to re-discuss the findings an d options for care if needed. I, Ender Mora PA-C, personally performed the services described in this documentation , as scribed by JADON Crocker in my presence, and it is both accurate and comp lete. Ender Mora PA-C 01/02/19 ELECTRONICALLY SIGNED BY: Ender Mora PA-C, 01/02/2019 13:38 documented in this encounter Plan of Treatment + + +--------+ + + | Name | Type | Priori | Associated Diagnoses | Order Schedule | | | | ty | | | + + +--------+ + + | [facility] | Outpatient | Routin | S/P lumbar fusion | Ordered: 01/02/2019 | | Management - AMB | Referral | e | Spondylolisthesis | | | Referral | | | of lumbar region | | | | | | Pseudoarthrosis of | | | | | | lumbar spine Lumbar | | | | | | radiculopathy | | | | | | Facet arthropathy, | | | | | | lumbar (HCC) | | + + +--------+ + + documented as of this encounter Procedures + +--------+ + + + | Procedure Name | Priori | Date/Time | Associated Diagnosis | Comments | | | ty | | | | + +--------+ + + + | IMAGING REPORT - | | 01/11/2019 | | Results for this | | EXTERNAL SCAN | | 12:00 AM | | procedure are in the | | | | PDT | | results section. | + +--------+ + + + documented in this encounter Results IMAGING REPORT - EXTERNAL SCAN (01/11/2019 12:00 AM PDT) + + + | [...] of fracture | + + | Lumbar radiculopathy Thoracic or lumbosacral neuritis or radiculitis, unspecified | + + | Facet arthropathy, lumbar Lumbosacral spondylosis without myelopathy | + + documented in this encounter
--- OUTSIDE RECORDS SUMMARY | ~2020-07-14 | XMS | Encounter Summary ---
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
--- OUTSIDE RECORDS SUMMARY | ~2020-07-14 | XMS | Encounter Summary ---
Demographics + + + | Address | [address] | | | [place] [address] | + + + | Home Phone | | + + + | Preferred Language | Unknown | + + + | Marital Status | | + + + | Mandaeism Affiliation | Unknown | + + + | Race | White | + + + | Ethnic Group | Not or | + + + Author + + + | Author | [facility] | | | and [place] | + + + | Organization | [facility] | | | [...] [place], [place] | | | | | [address] | | + + + + + | Mao Rea | ECON | Unknown | | + + + + + | Meredith Rea | ECON | Unknown | | + + + + + Care Team Providers + +------+ + | Care Furniture Finisher Apprentice Name | Role | Phone | + +------+ + | Brandon Juarez MD | PCP | | + +------+ + Encounter Details +--------+ + + + + | Date | Type | Department | Care Team | Description | +--------+ + + + + | 03/08/ | Hospital | [facility] | Koby George MD | S/P lumbar fusion | | 2017 | Encounter | MED CTR XRAY [address] | [address] | | | | | [place] | [place] [address] | | | | | [place] [address] | [phone] | | | | | [phone] | | | +--------+ + + + [...] 0.5-2 tablets | 120 | 0 | 03/08/20 | | | TABS | by mouth every 4 | tablet | | 17 | 7 | | | hours as needed. | | | [...] LUMBAR SPINE 2 OR | Routin | 03/08/2017 | S/P lumbar fusion | Results for this | | [address] | e | 10:42 AM | | procedure are in the [...] for posterior fusion from L2 through the | [facility] | | SI joints with spacer hardware [...] | [address] | [address] | [place] | [phone] | | [facility] | | [address] | | | - IMAGING | | | | + + + + + documented in this encounter Visit Diagnoses + + | Diagnosis | + + | S/P lumbar fusion Arthrodesis status | + + documented in this encounter"
--- OUTSIDE RECORDS SUMMARY | ~2020-07-14 | XMS | Encounter Summary ---
Demographics + + + | Address | [address] | | | [place] [address] | + + + | Home Phone | | + + + | Preferred Language | Unknown | + + + | Marital Status | | + + + | Hinduism Affiliation | Unknown | + + + | Race | White | + + + | Ethnic Group | Not or | + + + Author + + + | Author | [facility] | | | and [place] | + + + | Organization | [facility] | | | [...] [place] | | | | | [address] | | + + + + + | Mao Rea | ECON | Unknown | | + + + + + | Meredith Rea | ECON | Unknown | | + + + + + Care Team Providers + +------+ + | Care District Engineer Name | Role | Phone | [...] | | | | [address] | [place] [address] | | | | | [place] [address] | | | | | | [phone] | | | +--------+ + + + [...]
--- OUTSIDE RECORDS SUMMARY | ~2020-07-14 | XMS | Encounter Summary ---
Demographics + + + | Address | [address] | | | [place] [address] | + + + | Home Phone | | + + + | Preferred Language | Unknown | + + + | Marital Status | | + + + | Tenriism Affiliation | Unknown | + + + | Race | White | + + + | Ethnic Group | Not or | + + + Author + + + | Author | [facility] | | | and [place] | + + + | Organization | [facility] | | | [...] [place] | | | | | [address] | | + + + + + | Mao Rea | ECON | Unknown | | + + + + + | Meredith Rea | ECON | Unknown | | + + + + + Care Team Providers + +------+ + | Care Nut Grinder Name | Role | Phone | + [...] | | | n | Parkinson's | [facility] | Talent | | | | | disease | MD Milo | Therapy [address] | | | | | ([facility]) G20 | [address] | | | | | Dmitry | [address] | [place], | | | | | [place] | [place], | [place] [address] | | | | | | [place] [address] | Phone: | | | | | | Phone: | [phone] | | | | | | [phone] | Fax: | | | | | | Fax: | [phone] | | | | | | [phone] | | + +--------+ + + + + Encounter Details +--------+---------+ + + + | Date | Type | Department | Care Team | Description | +--------+---------+ + + + | 04/25/ | Office | [facility] [place] | Winnie Merino, | Cognitive | | 2020 | Visit | [facility] | Speech Pathologist | communication | | | | [address] | | disorder | | | | [place] | | | | | | [address] | | | | | | [phone] | | | +--------+---------+ + + + [...] Progress Notes Winnie Merino, Speech Pathologist - 04/25/2020 3:00 PM PDTFormatting of this note migronald t be different from the original. [facility] [address] [place] [facility] [address] Speech Therapy Daily Treatment Note Date: 04/25/2020 Patient Information Patient Name: Uziel Rea Date of : 1945 Age: 75 y.o. 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 Date of Onset: 04/18/2020 Referring Provider: Murphy Ordaz MD Rehab Precautions [facility]18[facility]2020 [facility] Re[facility] Precautions Precautions Comments Depression/mental health Hx Rehab Learning Style Office Visit from 04/18/2020 [facility] Learning Style Patient's [employer] Learning Style reading [written information] Today's Treatment Start Time: 1507 Stop time: 1545 Duration: 38 minutes Timed Treatment Codes: 0 minutes # of Speech Visits to Date: 2 Pain Assessment: Pain Scale Used: NUMERIC Pain Rating Pre Assessment: 6(chronic lower back pain) Subjective: Patient and pt's , Robinson, present for session. They both seemed eager to in itiate use of memory notebook. Robinson engaged and asking appropriate questions. Pt also very motivated to complete PT exercises to attempt to reduce pain. Objective: Initiate use of memory notebook. Generated daily schedule with checklist of item s pt is to complete daily e.g. PT exercises, shower and shave, wear bone growth stimulator. Completed training and established first section of memory notebook, daily schedule, to impr ove patient's ability to recall daily tasks and initiate daily routines with more independen ce. Assessment: Patient and patient's Robinson actively participated in generating daily sche dule for patient. Patient's demonstrated understanding on need for cues for appropriate use and establishing a routine. Plan: Assess functional and successful use of memory notebook to initiate tasks with daily schedule; add additional tabs for medical, "to-do", etc. Electronically signed by: Winnie Merino Speech Pathologist, 04/25/2020 3:51 PM PDT Patient Name: Uziel Rea/: 1945/ doc umented in this encounter Plan of Treatment Not on filedocumented as of this encounter Visit Diagnoses + + | Diagnosis | + + | Cognitive communication disorder | + + documented in this encounter
--- OUTSIDE RECORDS SUMMARY | ~2020-07-14 | XMS | Encounter Summary ---
Demographics + + + | Address | [address] | | | [place] [address] | + + + | Home Phone | | + + + | Preferred Language | Unknown | + + + | Marital Status | | + + + | Baptism Affiliation | Unknown | + + + | Race | White | + + + | Ethnic Group | Not or | + + + Author + + + | Author | [facility] | | | and [place] | + + + | Organization | [facility] | | | and [...] [place], [place] | | | | | [address] | | + + + + + | Mao Rea | ECON | Unknown | | + + + + + | Meredith Rea | ECON | Unknown | | + + + + + Care Team Providers + +------+ + | Care Director Instrumentation Name | Role | Phone | + [...] Description | +--------+---------+ + + + | 10/21/ | Office | [facility] | Ender Mora | S/P lumbar fusion | | 2015 | Visit | NEUROSURGERY [address] | [address] | (Primary Dx); | | | | [address] | [address] [place], [place] | 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 DOM Sampson [address] [facility], [address] [place] [address] FAX: NEUROSURGERY FOLLOW-UP CHIEF COMPLAINT: Chief Complaint [...] aterality: N/A; Surgeon: Koby George MD; Location: [facility] MA[facility] OR CURRENT MEDICATIONS: Current Outpatient [...] filedocumented as of this encounter Results XR Hip [...] ST. | [address] | [place] | [phone] | | [facility] | | [address] | | | - IMAGING | | [...]
--- OUTSIDE RECORDS SUMMARY | ~2020-07-14 | XMS | Encounter Summary ---
Demographics + + + | Address | [address] | | | [place] [address] | + + + | Home Phone [...] + | Author | [facility] | | | and [place] [...] [place] | | | | | [address] | | + + + + + | Mao Rea | ECON | Unknown | | + + + + + | Meredith Rea | ECON | Unknown | | + + + + + Care Team Providers + +------+ + | Care Computer Artist Name | Role | Phone | [...] | | | n | Parkinson's | [facility] | Rand | | | | | disease | MD Milo | Therapy [address] | | | | | ([facility]) G20 | [address] | | | | | Dmitry | [address] | [place], | | | | | HVAC MECHANIC | [place], | [place] [address] | | | | | | [place] [address] | Phone: | | | | | | Phone: | [phone] | | | | | | [phone] | Fax: | | | | | | Fax: | [phone] | | | | | | [phone] | | + +--------+ + + + + Encounter Details +--------+---------+ + + + | Date | Type | Department | Care Team | Description | +--------+---------+ + + + | 05/22/ | Office | [facility] [place] | Winnie Merino, | Cognitive | | 2020 | Visit | [facility] | Speech Pathologist | communication | | | | [address] | | disorder | | | | [place] | | | | | | [address] | | | | | | [phone] | | | +--------+---------+ + + + [...] Progress Notes Winnie Merino, Speech Pathologist - 05/22/2020 1:45 PM PDTFormatting of this note [facility] t be different from the original. [facility] [employer] [address] [place] [facility] [address] Speech Therapy Daily Treatment Note Date: 05/22/2020 Patient Information Patient Name: Uziel Rea Date of : 1945 Age: 75 y.o. 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 Date of Onset: 04/18/2020 Referring Provider: Murphy Ordaz MD Rehab Precautions Office Visit from 04/18/2020 in [facility] Rehab Precautions Precautions Comments Depression/mental health Hx Rehab Learning Style [facility] Learning [facility] Patient's Optimum Learning Style reading [written information] Today's Treatment Start Time: 1348 Stop time: 1432 Duration: 44 minutes Timed Treatment Codes: 0 minutes # of Speech Visits to Date: 5 Pain Assessment: Pain Scale Used: NUMERIC Pain Rating Pre Assessment: 6(left shoulder from RA, lower back 6) Subjective: Patient and pt's , Maribell, present for session. Brought memory notebook, and reported completing all acitivities on daily task list once. Patient indicates that he woul d like to start driving again, Maribell reminded patient that as long as he is using marijuana for pain he can't drive. HVAC MECHANIC informed pt he can get a driving assessment completed if/when a ppropriate to determine if that would be appropriate. Patient and Maribell verbalize continued successful use of notebook. Patient/Maribell to bring in IPad next session to trial use of [facility] ed retrieval to recall functional use of e-mail. Objective: Adjustments to memory notebook made to better serve pt in use. Reminder written in notebook to look on the table for Maribell's note when she is not home, as she leaves a note stating where she is. Training in use of utilizing written notes on names of friends/family /providers to answer questions and recall information successfully. Assessment: Patient independently crossing out days on calendar that are complete to improv e orientation. Successfully using "names" section of notebook to recall providers names and professions with minimal verbal cues to utilize written notes. Plan: Assess functional and successful use of memory notebook to initiate tasks with daily schedule,train use of IPad with spaced retrieval. Electronically signed by: Winnie Merino Speech Pathologist, 05/22/2020 2:55 PM [facility] Patient Name: Uziel Re[facility] 1945[facility] Plan of Treatment Not on filedocumented as of this encounter Visit Diagnoses + + | Diagnosis | + + | Cognitive communication disorder | + + documented in this encounter
--- OUTSIDE RECORDS SUMMARY | ~2020-07-14 | XMS | Encounter Summary ---
Demographics + + + | Address | [address] | | | [place] [address] | + + + | Home Phone [...] Author | [facility] | | | and [place] [...] [place] | | | | | [address] | | + + + + + | Mao Rea | ECON | Unknown | | + + + + + | Meredith Rea | ECON | Unknown | | + + + + + Care Team Providers + +------+ + | Care Guard Museum Name | Role | Phone | + [...] | | | n | Parkinson's | [facility] | [place] | | | | | disease | MD Milo | Therapy [address] | | | | | ([facility]) G20 | [address] | | | | | Dmitry | [address] | [place], | | | | | OFFICE COPY SELECTOR | [place], | [place] [address] | | | | | | [place] [address] | Phone: | | | | | | Phone: | [phone] | | | | | | [phone] | Fax: | | | | | | Fax: | [phone] | | | | | | [phone] | | + +--------+ + + + + Encounter Details +--------+---------+ + + + | Date | Type | Department | Care Team | Description | +--------+---------+ + + + | 05/27/ | Office | [facility] [place] | Winnie Merino, | Cognitive | | 2020 | Visit | [facility] | Speech Pathologist | communication | | | | [address] | | disorder | | | | [place] | | | | | | [address] | | | | | | [phone] | | | +--------+---------+ + + + [...] Progress Notes Winnie Merino, Speech Pathologist - 05/27/2020 10:15 AM PDTFormatting of this note migronald t be different from the original. [facility] [employer] [address] [place] [address] Speech Therapy Daily Treatment Note Date: 05/27/2020 Patient Information Patient Name: Uziel Rea Date of : 1945 Age: 75 y.o. 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 Date of Onset: 04/18/2020 Referring Provider: Murphy Ordaz MD Rehab Precautions Office Visit from 04/18/2020 [facility] Rehab Precautions Precautions Comments Depression/mental health Hx Rehab Learning Style Office Visit [facility] Learning Style Patient's Optimum Learning Style reading [written information] Today's Treatment Start Time: 1020 Stop time: 1100 Duration: 40 minutes Timed Treatment Codes: 0 minutes # of Speech Visits to Date: 6 Pain Assessment: Pain Rating Pre Assessment: 6(right hip to knee, left shoulder with tingling in hand and n jennie pain) Subjective: Patient and pt's , Maribell, present for session. Brought memory notebook, an [employer] Ipad. Patient reports having a difficult time sleeping due to increased pain in neck with it radiating to left shoulder and down to hand. Has virtual appointment with back surgeon and will address this. Has increased pain per his report. Patient reports that is vinnie villafana has to be irritated at him for sending incomplete emails as he sends them to soon bec ause he hits the wrong button. Objective: Pt demonstrated minimal to moderate verbal cues to consistently use voice recor ding and send e-mail on Ipad. With use or written instructions and repetition, by the end of the session pt was able to demonstrate functional use of voice recording to send e-mails wi th minimal intermittent verbal cues. Able to determine date with calendar and crossing out days. Written notes on how to use rem ote added to notebook. Assessment: Functionally using memory notebook, with assist from Maribell as needed for use in home environment. Continued training needed to independently send e-mails from IPad to impr ove communication. Plan: Assess functional and successful use of memory notebook to initiate tasks with daily schedule,train use of IPad with spaced retrieval to improve communication. Electronically signed by: Winnie Merino Speech Pathologist, 05/27/2020 6:01 PM [facility] Patient Name: Uziel Rea/: 1945/ [facility] Plan of Treatment Not on filedocumented as of this encounter Visit Diagnoses + + | Diagnosis | + + | Cognitive communication disorder | + + documented in this encounter"
--- OUTSIDE RECORDS SUMMARY | ~2020-07-14 | XMS | Encounter Summary ---
Demographics + + + | Address | [address] | | | [place] [address] | + + + | Home Phone | | + + + | Preferred Language | Unknown | + + + | Marital Status | | + + + | Lutheran Affiliation | Unknown | + + + | Race | White | + + + | Ethnic Group | Not or | + + + Author + + + | Author | [facility] | | | and [place] | + + + | Organization | [facility] | | | and [...] [place] | | | | | [address] | | + + + + + | Mao Rea | ECON | Unknown | | + + + + + | Meredith Rea | ECON | Unknown | | + + + + + Care Team Providers + +------+ + | Care Sheep And Wheat Farmer Name | Role | Phone | + [...] | Specialty | Neurosurgery | Diagnoses | Soto, | YAHIR | | | Services | | Lumbar | Logan Rios MD | NEUROSCIENCE | | | Required | | radiculopath | [address] | [address] | | | | | y Chronic | [address] | [address] | | | | | left-sided | [place], | [address] | | | | | low back | [place] [address] | [place], [place] | | | | | pain with | Phone: | [address] | | | | | left-sided | [phone] | Phone: | | | | | sciatica | Fax: | [phone] | | | | | History of | [phone] | Fax: | | | | | lumbar | | [phone] | | | | | fusion | [...] | | | | | | | ([facility]) | | | +--------+ + + + + + Reason for Visit + + + | Reason | Comments | + + + | Back Pain | | + + + Encounter Details +--------+---------+ + + + | Date | Type | Department | Care Team | Description | +--------+---------+ + + + | 02/26/ | Office | [facility] | Logan Soto, | Lumbar radiculopathy | | 2019 | Visit | PHYSIATRY [address] | MD [address] | (Primary Dx); | | | | [address] | [place] | Chronic left-sided | | | | [place] | [address] | low back pain with | | | | [address] | | left-sided sciatica; | | | | [phone] | | History of lumbar | | [...] Petra Prater RN - 02/26/2019 1:00 PM Consuelo will send a referral to [facility]. Please attend the injection appointment with Luis Carlos Jiménez MD. If his office has not co ntacted you within one week, to schedule the injection, please contact my clinic. Your inje ction will be performed at [facility]. [...] of the procedure you must provide a cdl team truck driver to take you home. For all procedur es it is recommended that someone else drive you home. documented in this encounter Progress Notes Logan Soto MD - 02/26/2019 1:00 PM PDTFormatting of this note might be different fro m the original. Logan Soto MD [address] [facility], [address] [place], [place] [id number] FAX: PHYSICAL MEDICINE AND REHABILITATION H&P CHIEF [...] has no apparent deficits with short or residential memory. The cranial nerves appear grossly intact. [...] a neurosurgeon. He will be referred to [facility] neurosurgery to discuss available surgical interventions. 6. [...] Uziel Rea will have neurosurgery consult at [facility] to discuss surgical treatment options for his [...] in this en counter Plan of Treatment + + +--------+ + [...]
--- OUTSIDE RECORDS SUMMARY | ~2020-07-14 | XMS | Encounter Summary ---
Demographics + + + | Address | [address] | | | [place] [address] | + + + | Home Phone [...] + + + | Author | [facility] | | | and [place] | + + + | Organization | [facility] [...] [place], [place] | | | | | [address] | | + + + + + | Mao Rea | ECON | Unknown | | + + + + + | Meredith Rea | ECON | Unknown | | + + + + + Care Team Providers + +------+ + | Care Solderer Dipper Name | Role | Phone | + +------+ + PCP | Unavailable | + +------+ + Encounter Details +--------+ + + + + | Date | Type | Department | Care Team | Description | +--------+ + + + + | 06/13/ | Hospital | [facility] | | | | 1994 | Encounter | MED CTR XRAY [address] | | | | | | [place] | | | | | | [place] [address] | | | | | | [phone] | | | +--------+ + + + [...]
--- OUTSIDE RECORDS SUMMARY | ~2020-07-14 | XMS | Encounter Summary ---
Demographics + + + | Address | [address] | | | [place] [address] | + + + | Home Phone [...] | Author | [facility] [...] [place], [place] | | | | | [address] | | + + + + + | Mao Rea | ECON | Unknown | | + + + + + | Meredith Rea | ECON | Unknown | | + + + + + Care Team Providers + +------+ + | Care Dental Amalgam Processor Name | Role | Phone | + +------+ + | Brandon Juarez MD | PCP | | + +------+ + Reason for Visit +---------+--------+ + | Reason | Onset | Comments | | | Date | | +---------+--------+ + | Post Op | 12/09/ | Update | | | 2014 | | +---------+--------+ + Encounter Details +--------+ + + + + | Date | Type | Department | Care Team | Description | +--------+ + + + + | 12/09/ | Telephone | [facility] | Koby George MD | Post Op (Update) | | 2014 | | NEUROSURGERY [address] | [address] | | | | | [address] | [place] [address] | | | | | [place] | [phone] | | | | | [address] | | | | | | [phone] | | | +--------+ + + + [...] Notes Telephone Encounter - Emily Padilla - 12/09/2014 2:51 PM PSTRx sent via [employer]# [phone]. Uziel is updated at this time. 3:0 0 PM PSTTelephone Encounter - Randy Emily Qiu - 12/09/2014 9:01 AM PSTProcedure: L2-L5 F usion Date of Surgery: 12/02/14 1. How are you feeling (pain type/often)? He states that he is feeling better today then h e did yesterday. 2. If pain, where (Legs/surgical site)? Pain is primarily in his low back and radiates nohelia n his left thigh, intermittently and worse in the AM. 3. Weakness/Numbness (New onset)? Bilateral leg weakness that feels like his "muscles area tired"-new onset since surgery. 4.Taking pain meds (Name/Dosage)? Hydrocodone 5/325 mg 2 tabs po every 4 hours prn pain, C yclobenzaprine 10 mg 1 tab po every 8 hours prn spasms. Refill requested of Hydrocodone. Order is attached. Please approve/deny. Please send in the mail. Address verified at this time. 5.Loss of Bowel or Bladder (When/Chronic)? No, loss of bowel/bladder control. He is having complaints of constipation. He has been taking Lactulose as directed. Last BM the day he was D/C'd. He is passing gas. 6.Ambulating (How often)? Ambulatory at least every 45 minutes. Trying to walk daily as d irected by his surgeon. SURGICAL ISSUES 1.What does the dressing look like? Outer bandages will be removed today. Steri-strips ar e intact. Area is clean/dry. 2.Is there drainage from the site? No. 3.Do you have a fever? No. 4.Follow up appointments? 01/07/15 @ 12:00 5.What could we have done to make your visit better? No. 6. Has preoperative pain improved? Yes. documented in this enc ounter Plan of Treatment Not on filedocumented as of this encounter Visit Diagnoses Not on filedocumented in this encounter
--- OUTSIDE RECORDS SUMMARY | ~2020-07-14 | XMS | Encounter Summary ---
Demographics + + + | Address | [address] | | | [place] [address] | + + + | Home Phone [...] + + + | Author | [facility] | | | and [place] | + + + | Organization | [facility] | | | [...] [place], [place] | | | | | [address] | | + + + + + | Mao Rea | ECON | Unknown | | + + + + + | Meredith Rea | ECON | Unknown | | + + + + + Care Team Providers + +------+ + | Care Radio Interference Supervisor Name | Role | Phone | + +------+ + | Brandon Juarez MD | PCP | | + +------+ + Encounter Details +--------+ + + + + | Date | Type | Department | Care Team | Description | +--------+ + + + + | 07/06/ | Orders Only | [facility] [place] | Luis Calros Jiménez | Lumbar radiculopathy | | 2016 | | PHYSIATRY [address] | TMD [address] | (Primary Dx) | | | | [address] | [place], [place] | | | | | [facility] [place] | [address] | | | | | [address] | | | | | | [phone] | | | +--------+ + + + [...] 07/12/2016 Transforaminal Epidural Steroid Injection Diagnosis: | DESHA[place] | | Lumbar radiculopathy ICD-10 Code M54.16 Uziel Rea | [facility] | | presents to the fluoroscopy suite for a fluoroscopically-guided [facility] | | L5-S1 transforaminal epidural steroid injection [...] [address] | [place] | [phone] | | [facility] | | [address] | | | - IMAGING | | | | + + + + + documented in this encounter Visit Diagnoses + + | Diagnosis | + + | Lumbar radiculopathy - Primary Thoracic or lumbosacral neuritis or radiculitis, | | unspecified | + + documented in this encounter"
--- OUTSIDE RECORDS SUMMARY | ~2020-07-14 | XMS | Encounter Summary ---
Demographics + + + | Address | [address] | | | [place] [address] | + + + | Home Phone [...] + + | Author | [facility] | | | and [place] | + + + | Organization | [facility] | | | [...] [place], [place] | | | | | [address] | | + + + + + | Mao Rea | ECON | Unknown | | + + + + + | Meredith Rea | ECON | Unknown | | + + + + + Care Team Providers + +------+ + | Care Endodontist Name | Role | Phone | + +------+ + | Brandon Juarez MD | PCP | | + +------+ + Reason for Visit +--------+--------+ + | Reason | Onset | Comments | | | Date | | +--------+--------+ + | Other | 11/28/ | PRESURGICAL CHECK-IN INSTRUCTIONS | | | 2014 | | +--------+--------+ + Encounter Details +--------+ + + + + | Date | Type | Department | Care Team | Description | +--------+ + + + + | 11/28/ | Telephone | [facility] | Koby George MD | Other (PRESURGICAL | | 2014 | | NEUROSURGERY [address] | CHECK-IN | | | | [address] | [place] [address] | INSTRUCTIONS) | | | | [place] | [phone] | | | | | [phone] | | | | | | [phone] | | | +--------+ + + + [...] Notes Telephone Encounter - Emily Padilla - 11/28/2014 5:54 PM PSTAll presurgical check-in instructions given Surgery date: 12/02/14 Check-in Time: 11:00 AM No solids or liquids after midnight the night before surgery. Follow the cleansing instructions provided beginning the night before surgery after you marisela wer or bathe. No showering the morning of surgery. Please do not wear jewelry, or contact lenses surgery check-in. If you have dentures, or hearing aids please bring the cases to check-in. Medications instructions: Do not take Lisinopril the AM of surgery per Dr. Yam. Triplett verbalized understanding. documented in this enc ounter Plan of Treatment Not on filedocumented as of this encounter Visit Diagnoses Not on filedocumented in this encounter"
--- OUTSIDE RECORDS SUMMARY | ~2020-07-14 | XMS | Encounter Summary ---
Demographics + + + | Address | [address] | | | [place] [address] | + + + | Home Phone [...] + | Author | [facility] | [...] [place], [place] | | | | | [address] | | + + + + + | Mao Rea | ECON | Unknown | | + + + + + | Meredith Rea | ECON | Unknown | | + + + + + Care Team Providers + +------+ + | Care Nut Threader Name | Role | Phone | + [...] | | | | | | | NM ARTHDSIS | | | | | | [...] | | | | | | ION NM INSJ | | | | | | [...] | | | | | | SEG NM | | | | | | | ALLOGRAFT | | | | | | | FOR SPINE | | | | | | | SURGERY ONLY | | | | | | | MORSELIZED | | | | | | | NM REINSERT | | | | | | | SPINAL | | | | | | | FIXATION NM | | | | | | | REINSERT | | | | | | | SPINAL | | | | | | | FIXATION NM | | | | | | | REINSERT | | | | | | | SPINAL | | | | | | | FIXATION NM | | | | | | | INSJ | | | | | | | BIOMCHN DEV | | | | | | | INTERVERTEBR | | | | | | | AL DSC SPC | | | | | | | W/ARTHRD NM | | | | | | | INSJ | | | | | | | BIOMCHN DEV | | | | | | | INTERVERTEBR | | | | | | | AL DSC SPC | | | | | | | W/ARTHRD NM | | | | | | | | | | | | | | LAMINEC/FACE | | | | | | | TECT/FORAMIN | | | | | | | ,EACH ADDNL | | | | | | | NM | | | | | | | [...] Description | +--------+---------+ + + + | 02/23/ | Surgery | [facility] | Koby George MD | L5-S1 Transforaminal | | 2017 | | MED CTR OR INTRA OP | [address] | Lumbar Interbody | | | | [address] | [place] [address] | Fusion, Hardware | | | | TANIA Paz | [phone] | Revision @ L2-3, | | | | [id number] | | L3-4, L4-5 | | | | [phone] | | | +--------+---------+ + + + [...] + + + | Blood Pressure | 119/72 | 02/23/2017 6:38 AM | | | | | PDT | | + + + + + | Pulse | 63 | 02/23/2017 6:38 AM | | | | | PDT | | + + + + + | Temperature | 36.3 C (97.3 F) | 02/23/2017 6:38 AM | | | | | PDT | | + + + + + | Respiratory Rate | 16 | 02/23/2017 6:38 AM | | | | | PDT | | + + + + + | Oxygen Saturation | 96% | 02/23/2017 6:38 AM | | | [...] documented as of this encounter Discharge Summaries Edner Mora PA-C - 02/26/2017 7:56 AM PDTFormatting of this note might be differ ent from the original. [facility] NEUROSURGERY DISCHARGE SUMMARY Patient Name: [...] Dose Taken; Ascorbic Acid (VITAMIN C WITH BEBETO HIPS) 500 MG tablet 500 mg Take [...] month post op appointment before your appointment. [id number] [employer]. [address] [place] [id number]. All righ ts reserved. This information is [...] mg by mouth | | 0 | 04//20 | | | capsule | 3 times [...] | Multiple | | | 0 | 08/16/20 | | | Vitamins-Minerals (A | | | | 11 | | | THRU Z ADVANCED) | | | | | | | TABS | | | | | | + + + +---------+ + + | simvastatin | Take 40 mg by mouth | | 0 | 04//20 | | | (ZOCOR) 40 mg tablet [...] 02/26/2017 2:21 PM PDTDischarge instructions reviewed with homero velarde and spouse, incision reviewed, MIGUEL A drain discontinued, forbes to stay in place until ap pointment with primary care provider, prescriptions previously filled by , all questions answered. Electronically signed by: Kel Doran RN 02/26/2017 14:25 Kel Ackerman, ELENA - 02/26/2017 8:57 AM PDTPrescriptions given to , to fill at [facility], patient lives in [place], [place]. Electronically signed by: Kel Doran RN 02/26/2017 8:58 Bessy, Ender Ramos PA-C - 02/25/2017 7:25 AM PDTFormatting of this note might be different from the o riginal. [facility] NEUROSURGERY PROGRESS NOTE PATIENT NAME: Uziel Rea AGE: 71 y.o. DATE OF SERVICE: 02/25/2017 7:25 S: The patient complains of back pain. The leg symptoms are improved. The patient has bee n working on mobilized well. The patient had a frobes placed but is passing flatus. patient was [...] Nightly Ender Mora PA-C 20 mg at 02/24/17 2102 bisacodyl (DULCOLAX) suppository 10 mg 10 mg Rectal Daily PRN HCELSY Lo calcium carbonate (TUMS) chewable tablet 1,000 [...] 100 mL/hr at 1820 100 mL at 02/23/171819 lactulose liquid 30 mL 30 mL Oral BID Ender Mora PA-C 30 mL at 02/24/17 21 05 levothyroxine (SYNTHROID, LEVOTHROID) tablet 75 mcg 75 mcg Oral QAM AC Ender Mora PA-C 75 mcg at 02/25/17 0639 lithium capsule 300 mg 300 mg Oral Daily Ender Mora PA-C 300 mg at 2100 magnesium hydroxide (MILK OF MAGNESIA) 400 [...] Mora PA-C 4 mg at 02/24/17 0513 naloxone [...] BID Ender Mora PA-C 8.6 mg at 210 sulfaSALAzine [...] has no apparent deficits with short or prison memory. MOTOR EXAM: Motor strength is stable [...] Linder PA-C - 02/24/2017 7:25 AM PDT [facility] NEUROSURGERY PROGRESS NOTE PATIENT NAME: Uziel Rea [...] has no apparent deficits with short or prison memory. MOTOR EXAM: Motor strength is stable [...] HISTORY & PHYSICAL UPD ATE Pt. Name/Age/: Uzielnolan Rea 71 y.o. 1945 Date of admission: [...] signed by: Ender Mora PA-C, 02/23/2017 7:54 [facility] documented in this encounter Nursing Notes Ana Coronado RN - 02/23/2017 10:31 AM PDTFamily notified of progress of procedure at 1 030 documented in this encounter Miscellaneous Notes Plan of Care - Regi Messina MSW - 02/26/2017 1:44 PM PDTProblem: Discharge Planning Goal: Patient will be discharged in a safe manner Outcome: Improving This case liner spoke with PT/OT who states that patient [...] would be able to help him at [facility]. They have all DME needed at home [...] with PT as noted below, PT recommendi ng that patient could benefit from additional time at fpc facility for additiona l days of rehabilitation [...] Patient and wi fe to speak with case liner today regarding their decision. Patient handed off to nursing after treatment session Physical Therapy Discharge Recommendations are: Recommended discharge disposition: home with assist, fpc facility ([facility]) Post discharge physical therapy recommendation: [...] relaxed shoulders with upright posture. Level of Cook: contact guard assist, verbal cues required Assistive Device: 2 wheeled walker (FWW) Distance (feet): 150 Gait Pattern Analysis: 2-point gait Gait Deviations: олег decreased, step length decreased, stride length decreased, swing-t o-stance ratio decreased, weight-shifting ability decreased Stairs Number of Stairs: 4 Handrail Location: left side (ascending) Level of Cook: stand by assist Assistive Device: 1 rail Technique Used: step to step (ascending), step to step (descending) Safety Issues: balance decreased during turns Impairments: pain, strength decreased, impaired balance Transfers slow, cautious mobility. Sit-Stand, Level of Cook: verbal cues required, contact guard assist Stand-Sit, Level of Cook: verbal cues required, contact guard assist Yjv-Huycv-Fgi, Assistive Device: 2 wheeled walker (FWW) Safety Issues: step length decreased, weight-shifting ability decreased Impairments: ROM decreased, strength decreased, pain Bed Mobility cues for use of bed controls to lower foot of bed prior to attempt to get up. Assistive Device: bed rails, HOB elevated Roll Left, Level of Cook: verbal cues required, stand by assist Scoot/Bridge, Level of Cook: verbal cues required Supine to Sit, Level of Cook: minimal assist (75% patient effort), verbal cues requ ired Sit to Supine, Level of Cook: stand by assist, verbal cues required Safety [...] STG Review Date 02/24/17 at 02/23/2017 1634 Lzvnoh-Bki-Jnlodd Goal Most Recent Value STG Status continued/progressing at 02/26/2017 1130 STG Cook Level modified independent at 02/23/2017 1634 STG Assistive Device none at 02/23/2017 1634 Yhn-Hwrqw-Hid Goal Most Recent Value STG Status continued/progressing at 02/26/2017 1130 STG Cook Level modified independent at 02/23/2017 1634 STG Assistive Device 2 wheeled walker (FWW) at 02/23/2017 1634 Gait Goal Most Recent Value STG Status continued/progressing at 02/26/2017 1130 STG Cook Level modified independent at 02/23/2017 1634 STG Assistive Device 2 wheeled walker (FWW) at 02/23/2017 1634 STG Distance (feet) 150 feet at 02/23/2017 1634 Stair Goal Most Recent Value STG Status continued/progressing at 02/26/2017 1130 STG Cook Level modified independent at 02/23/2017 1634 STG [...] Therapy Discharge Recommendations are: Recommended discharge disposition: fpc facility Post discharge occupational therapy recommendation: minimum [...] technique with LSO. UB Dressing, Level of Cook: moderate assist (50% patient effort), verbal cues requi red UB Dressing Assess/Train, Position: other (see comments) UB Dressing Assess/Train, Impairments: muscle tone abnormal, decreased flexibility, strengt h decreased, motor control impaired, pain After demonstration with AE, patient required moderate cuing and Min A for management of ca theter. present for teaching. LB Dressing, Level of Cook: minimal assist (75% patient effort), verbal cues requir ed, set up required Assistive Device: none LB Dressing Assess/Train, Position: sitting, supported standing LB Dressing Assess/Train, Impairments: pain, ROM decreased, strength decreased Bed Mobility VC for log roll technique for C brace precautions Assistive Device: bed rails, HOB elevated Roll Left, Level of Cook: verbal cues required, stand by assist Scoot/Bridge, Level of Cook: verbal cues required Supine to Sit, Level of Cook: minimal assist (75% patient effort), verbal cues requ ired Sit to Supine, Level of Cook: stand by assist, verbal cues required Safety Issues: decreased use of arms for pushing/pulling, decreased use of legs for bridgin g/pushing Impairments: ROM decreased, strength decreased, pain Transfers Sit-Stand, Level of Cook: verbal cues required, contact guard assist Stand-Sit, Level of Cook: verbal cues required, contact guard assist Nud-Njzdg-Ukt, Assistive Device: 2 wheeled walker (FWW) Safety Issues: step length decreased, weight-shifting ability decreased (bumping into objec ts) Impairments: ROM decreased, strength decreased, pain OT Goal Review Date Most Recent Value STG Review Date 02/28/17 at 02/24/2017 0942 UB Dressing Goal Most Recent Value STG Status continued/progressing at 02/26/2017 1211 STG Cook Level set up required at 02/24/2017 0942 LB Dressing Goal Most Recent Value STG Status continued/progressing at 02/26/2017 1211 STG Cook Level set up required at 02/24/2017 0942 Toileting Goal Most Recent Value STG Status not addressed at 02/26/2017 1211 STG Cook Level supervised at 02/24/2017 0942 Toilet Transfer Goal Most Recent Value STG Status not addressed at 02/26/2017 1211 STG Cook Level supervised at 02/24/2017 0942 Tub/Shower Transfer Goal Most Recent Value Tub/Shower Type tub at 02/24/2017 0942 STG Status not addressed at 02/26/2017 1211 STG Cook Level stand by assist at 02/24/2017 0942 Additional Goals #1 OT Most Recent Value STG Status continued/progressing at 02/26/2017 1211 STG Family/caregiver to demo good understanding of C-Bracing precautions. at 02/25/20 17 0942 Electronically signed by: ENRICO Manzanares, 02/26/2017 13:36 lan of Care - Tn Kel Lee, RN - 02/25/2017 6:13 PM PDTProblem: Patient [...] appropriately and makes needs known lan of René marie Moy Martin Angeles C, OT - 02/25/2017 5:04 PM PDTFormatting of [...] to provide and that a Rehab SNF st may be indicated. Pt is agreeable to this if necessary, he does not want to be a burden to his . Will monitor status, consult w/ Case Mgmt tomorrow. Further family training/e ducation is necessary for C-Bracing precautions. Occupational Therapy Discharge Recommendations are: Recommended discharge disposition: fpc facility Post discharge occupational therapy recommendation: minimum [...] technique w/ LSO. UB Dressing, Level of Cook: maximal assist (25% patient effort), verbal cues [...] rails, HOB elevated Roll Left, Level of Cook: moderate assist (50% patient effort), verbal cues require d, set up required, tactile cues required Scoot/Bridge, Level of Cook: verbal cues required Supine to Sit, Level of Cook: moderate assist (50% patient effort), tactile cues re quired, verbal cues required, set up required Sit to Supine, Level of Cook: minimal assist (75% patient effort), verbal cues requ ired, set up required, tactile cues required Safety Issues: decreased use of legs for bridging/pushing, decreased use of arms for pushin g/pulling, cognitive deficits limit understanding Impairments: decreased flexibility, pain, strength decreased, ROM decreased, impaired sukhi ce, motor control impaired Transfers Sit-Stand, Level of Cook: contact guard assist, verbal cues required Stand-Sit, Level of Cook: contact guard assist, verbal cues required Tmy-Ptzrd-Wau, Assistive Device: 2 wheeled walker (FWW) Safety Issues: step length decreased, weight-shifting ability decreased (bumping into objec ts) Impairments: decreased flexibility, strength decreased, impaired balance, pain, motor contr ol impaired OT Goal Review Date Most Recent Value STG Review Date 02/28/17 at 02/24/2017 0942 UB Dressing Goal Most Recent Value STG Status continued/progressing, not addressed at 02/25/20171814 STG Cook Level set up required at 02/24/2017 0942 LB Dressing Goal Most Recent Value STG Status not addressed at 02/25/2017 1815 STG Cook Level set up required at 02/24/2017 0942 Toileting Goal Most Recent Value STG Status not addressed at 02/25/2017 1815 STG Cook Level supervised at 02/24/2017 0942 Toilet Transfer Goal Most Recent Value STG Status not addressed at 02/25/2017 1815 STG Cook Level supervised at 02/24/2017 0942 Tub/Shower Transfer Goal Most Recent Value Tub/Shower Type tub at 02/24/2017 0942 STG Status not addressed at 02/25/2017 1815 STG Cook Level stand by assist at 02/24/2017 0942 Additional Goals #1 OT Most Recent Value STG Status continued/progressing at 02/25/2017 1815 STG Family/caregiver to demo good understanding of C-Bracing precautions. at 02/25/20 17 0942 Electronically signed by: Angeles Martin, OT, 02/25/2017 18:19 lan of Care - Sohail Ashby, L[employer] AND GATE BUILDER - 02/25/2017 11:45 AM PDTProblem: Patient Care [...] are: Recommended discharge disposition: home with assist, fpc facility ([facility]) Post discharge physical therapy recommendation: [...] assistive device use, upright posture. Level of Cook: contact guard assist, verbal cues required Assistive Device: 2 wheeled walker (FWW) Distance (feet): 50 ft x 2 Gait Pattern Analysis: 3-point gait Gait Deviations: олег decreased, step length decreased, stride length decreased, swing-t o-stance ratio decreased, weight-shifting ability decreased Transfers slow, cautious mobility. Sit-Stand, Level of Cook: contact guard assist, verbal cues required Stand-Sit, Level of Cook: contact guard assist, verbal cues required Qsa-Dfrxo-Lzg, Assistive Device: 2 wheeled walker (FWW) Safety Issues: step length decreased, weight-shifting ability decreased Impairments: decreased flexibility, strength decreased, impaired balance, pain Bed Mobility cues for use of bed controls to lower foot of bed prior to attempt to get up. Assistive Device: bed rails, HOB elevated Roll Left, Level of Cook: stand by assist, verbal cues required Scoot/Bridge, Level of Cook: verbal cues required Supine to Sit, Level of Cook: contact guard assist, verbal cues required, set up re quired Sit to Supine, Level of Cook: minimal assist (75% patient effort), verbal cues [...] STG Review Date 02/24/17 at 02/23/2017 1634 Ifbjhf-Rcd-Yayift Goal Most Recent Value STG Status continued/progressing at 02/25/2017 0930 STG Cook Level modified independent at 02/23/2017 1634 STG Assistive Device none at 02/23/2017 1634 Ses-Kfkny-Irk Goal Most Recent Value STG Status continued/progressing at 02/25/2017 0930 STG Cook Level modified independent at 02/23/2017 1634 STG Assistive Device 2 wheeled walker (FWW) at 02/23/2017 1634 Gait Goal Most Recent Value STG Status continued/progressing at 02/25/2017 0930 STG Cook Level modified independent at 02/23/2017 1634 STG Assistive Device 2 wheeled walker (FWW) at 02/23/2017 1634 STG Distance (feet) 150 feet at 02/23/2017 1634 Stair Goal Most Recent Value STG Status continued/progressing at 02/25/2017 0930 STG Cook Level modified independent at 02/23/2017 1634 STG [...] light within reach. lan of Care - Charla n-Maia Little, [employer] G[employer]DER - 02/24/2017 7:47 PM PDTProblem: Patient Care [...] to monitor patient. lan of Care - Jaycee Aviles RN - 02/24/2017 2:31 PM PDTProblem: Discharge Planning Goal: Patient will be discharged in a safe manner Discharge planning: This CM met with patient, Uziel Rea at his bedside today. Uziel states that he lives with his , Henny in their home in [place]. The home is a one level home [...] for the FWW has been faxed to [facility], fax # [phone], with request to be delivered to the patients room #318. Follow up phone call, spoke with Kylee at [facility], [phone], to assure the order has been re [...] Dr Brandon Juarez and he uses the [facility] in [place]. His , Henny will be his transportation home when he is medically stable for discharge. 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 Pt required significant assist to perform inspector air carrier activitie s including pulling up pants/underwear and [...] weakness in BUEs LB Dressing, Level of Cook: moderate assist (50% patient effort) Assistive Device: none LB Dressing Assess/Train, Position: sitting, supported standing LB Dressing Assess/Train, Impairments: pain, strength decreased, ROM decreased Pt requires assist to lift legs to get back into bed. Grooming, Level of Cook: minimal assist (75% patient effort), set up required Assistive Device: none Grooming Assess/Train, Position: supported sitting Grooming Assess/Train, Impairments: strength decreased, ROM decreased, pain Bed Mobility VC for log roll technique for C brace precautions Assistive Device: bed rails, HOB elevated Roll Left, Level of Cook: stand by assist, verbal cues required Scoot/Bridge, Level of Cook: verbal cues required Supine to Sit, Level of Cook: contact guard assist, verbal cues required, set up re quired Sit to Supine, Level of Cook: minimal assist (75% patient effort), verbal cues requ ired, set up required Safety Issues: decreased use of legs for bridging/pushing, decreased use of arms for pushin g/pulling Impairments: decreased flexibility, pain, strength decreased Transfers Tends to fatigue quickly, especially when static standing. Cues to straighten back/knees. Very narrow ABEL. Sit-Stand, Level of Cook: contact guard assist, verbal cues required Stand-Sit, Level of Cook: contact guard assist, verbal cues required Off-Yzsqe-Ngu, Assistive Device: 2 wheeled walker (FWW) Safety [...] continued/progressing, not addressed at 02/24/2017 0942 STG Cook Level set up required at 02/24/2017 0942 LB Dressing Goal Most Recent Value STG Status continued/progressing at 02/24/2017 0942 STG Cook Level set up required at 02/24/2017 0942 Toileting Goal Most Recent Value STG Status continued/progressing, not addressed at 02/24/2017 0942 STG Cook Level supervised at 02/24/2017 0942 Toilet Transfer Goal Most Recent Value STG Status continued/progressing, not addressed at 02/24/2017 0942 STG Cook Level supervised at 02/24/2017 0942 Tub/Shower Transfer Goal Most Recent Value Tub/Shower Type tub at 02/24/2017 0942 STG Status continued/progressing, not addressed at 02/24/2017 0942 STG Cook Level stand by assist at 02/24/2017 0942 [...] shift. lan of Care - Maine Morgan, [employer] G[employer] BUILDER - 02/24/2017 1:40 AM PDTProblem: Patient Care [...] C-Bracing precautions. Supine to Sit, Level of Cook: contact guard assist, verbal cues required, set up re quired Sit to Supine, Level of Cook: stand by assist, verbal cues required, set up require d Safety Issues: decreased use of legs for bridging/pushing Impairments: decreased flexibility, pain, strength decreased Transfers Heavy reliance of UEs on FWW, shoulders elevated. Cues to relax through arms w/ fair outco me. Gait very shortened in stride and very narrow ABEL. Sit-Stand, Level of Cook: contact guard assist, verbal cues required Stand-Sit, Level of Cook: contact guard assist, verbal cues required Hii-Adkfa-Nvu, Assistive Device: 2 wheeled walker (FWW) Safety Issues: step length decreased, weight-shifting ability decreased Impairments: decreased flexibility, strength decreased, impaired balance, pain OT Goal Review Date Most Recent Value STG Review Date 02/28/17 at 02/23/2017 1735 UB Dressing Goal Most Recent Value STG Status new at 02/23/2017 1735 STG Cook Level set up required at 02/23/2017 1735 LB Dressing Goal Most Recent Value STG Status new at 02/23/2017 1735 STG Cook Level set up required at 02/23/2017 1735 Toileting Goal Most Recent Value STG Status new at 02/23/2017 1735 STG Cook Level supervised at 02/23/2017 1735 Toilet Transfer Goal Most Recent Value STG Status new at 02/23/2017 1735 STG Cook Level supervised at 02/23/2017 1735 Tub/Shower Transfer Goal Most Recent Value Tub/Shower Type tub at 02/23/2017 1735 STG Status new at 02/23/2017 1735 STG Cook Level stand by assist at 02/23/2017 1735 [...] assistive device use, upright posture. Level of Cook: contact guard assist, verbal cues required Assistive [...] l upper extremity reliance. Sit-Stand, Level of Cook: contact guard assist, verbal cues required Stand-Sit, Level of Cook: contact guard assist, verbal cues required Lrs-Ccmrl-Vir, Assistive Device: 2 wheeled walker (FWW) Safety Issues: step length decreased, weight-shifting ability decreased Impairments: decreased flexibility, strength decreased, impaired balance, pain Bed Mobility Standby assist for pain, decreased flexibility, decreased strength, and decreased activity tolerance, except sit to supine where he needed min assist with lower extremity management.. Assistive Device: bed rails, HOB elevated Roll Left, Level of Cook: stand by assist, verbal cues required Scoot/Bridge, Level of Cook: verbal cues required (.) Supine to Sit, Level of Cook: stand by assist, verbal cues required Sit to Supine, Level of Cook: minimal assist (75% patient effort), verbal cues requ ired Impairments: decreased flexibility, pain, strength decreased Balance [facility] BASIC MOBILITY [facility] Turning over in bed: no [...] max assist/a lot of help TOTAL - [facility] BASIC MOBILITY : 19 Unable / dependent = 1 A lot / modA = 2 A little / Pili = 3 None / independent = 4 Completed the [facility] Activity Measure for Post Acute Care (AM-PAC) "6 Clicks" [facility] Mobility Inpatient Short Form. This version of [...] STG Review Date 02/24/17 at 02/23/2017 1634 Qojwjt-Iab-Mzxwog Goal Most Recent Value STG Status new, continued/progressing at 02/23/2017 1634 STG Cook Level modified independent at 02/23/2017 1634 STG Assistive Device none at 02/23/2017 1634 Zly-Rhhiw-Kvn Goal Most Recent Value STG Status new, continued/progressing at 02/23/2017 1634 STG Cook Level modified independent at 02/23/2017 1634 STG Assistive Device 2 wheeled walker (FWW) at 02/23/2017 1634 Gait Goal Most Recent Value STG Status new, continued/progressing at 02/23/2017 1634 STG Cook Level modified independent at 02/23/2017 1634 STG Assistive Device 2 wheeled walker (FWW) at 02/23/2017 1634 STG Distance (feet) 150 feet at 02/23/2017 1634 Stair Goal Most Recent Value STG Status new at 02/23/2017 1634 STG Cook Level modified independent at 02/23/2017 1634 STG Assistive Device 1 rail at 02/23/2017 1634 STG Number of Stairs 4 at 02/23/2017 1634 Electronically signed by: Sean Mckeon, PT, 02/23/2017 17:10 p Note - Brenden George MD - 02/23/2017 12:55 PM PDTFormatting of this note might be different from the orig inal. Operative Note Uziel Silas Rea 71 y.o. male 1945 [id number] Proc. Date 02/23/2017 Preop Dx Lumbar radiculopathy [...] You Surgeon Koby George MD - [facility] Tray Service Worker Ender Mora PA-C EBL [id number] Findings L2 [...] obtained from the drillin g, BMP and [place] were packed in the posterolateral aspect of [...] left respectively. The interspace was packed with Acadia/cancellous chips and al so with morselized local autograft. The PEEK spacers was filled with morselized local bone autograft and Acadia. The PEEK spacers were then tamped into [...] by: Koby George MD 02/23/2017 12:52 [facility] rief Op Note - Musa George MD - 02/23/2017 12:52 PM PDTFormatting of this note might be different from the origin al. Brief Operative Note Uziel Silas Rona 71 y.o. male 1945 [id number] Proc. Date 02/23/2017 Preop Dx Lumbar radiculopathy [...] You Surgeon Koby George MD - [facility] Tray Service Worker Ender Mora PA-C EBL 385 Findings L2 right and B L5 loosened hardware. Nonusion L2-L5. L5-S1 severe synovial cyst and facet arthropathy Complications none Specimens * No specimens in log * Drains Drain/Device Site 02/23/17 posterior back (Active) Electronically signed by: Koby George MD 02/23/2017 12:52 [facility]ronically signed by Koby George MD at 017 [...] | | | 12/10/ | | | 2016:A | | | dditio | | | [...] | | Jackso | | | n Davidson | | | | | | FrameE | | | st | | | Time: | | | 240min | +---+--------+ | | | | | Specia | | | l | | | Needs | | | Aamn | | | (Nuvas | | | [...] + | Alexis, Sen Results In - 02/23/2017 3:21 PM PDT [...] in this encounter Administered Medications + +--------+ +---------+------+ + | Medication Order | MAR | Action | Dose | Rate | Site | | | Action | Date | | | | + +--------+ +---------+------+ + | bacitracin in NS solution PRN, | Given | 02/24/20 | 50,000 | | Surgical | | Starting 02/23/17 at 0851, | | 17 8:51 | Units | | Site | | Intra-op | | AM PDT | | | | + +--------+ +---------+------+ + +---+---+ | | | +---+---+ + +-------+ +--------+---+ + | bupivacaine (liposomal) | Given | 02/24/20 | 20 mLs | | Surgical | | (EXPAREL) 1.3% injection PRN, | | 17 12:00 | | | Site | | Starting Tue02/23/17 at 1003, | | PM PDT | | | | | Intra-op | | | | | | + +-------+ +--------+---+ + +---+---+ | | | +---+---+ + +-------+ +--------+---+ + | bupivacaine 0.5%-EPINEPHrine | Given | 02/24/20 | 20 mLs | | Surgical | | 1:200,000 injection PRN, | | 17 12:00 | | | Site | | Starting Tue02/23/17 at 0852, | | PM PDT | | | | | Intra-op | | | | | | + +-------+ +--------+---+ + +---+---+ | | | +---+---+ documented in this encounter
--- OUTSIDE RECORDS SUMMARY | ~2020-07-14 | XMS | Encounter Summary ---
Demographics + + + | Address | [address] | | | [place] [address] | + + + | Home Phone | | + + + | Preferred Language | Unknown | + + + | Marital Status | | + + + | Zoroastrian Affiliation | Unknown | + + + | Race | White | + + + | Ethnic Group | Not or | + + + Author + + + | Author | [facility] | | | and [place] | + + + | Organization | [facility] | | | [...] [place] | | | | | [address] | | + + + + + | Mao Rea | ECON | Unknown | | + + + + + | Meredith Rea | ECON | Unknown | | + + + + + Care Team Providers + +------+ + | Care Thoracic Medicine Physician Name | Role | Phone | + +------+ + | Sherie Vela PA-C | PCP | | + +------+ + Reason for Visit +--------+ + | Reason | Comments | +--------+ + | Hernia | Patient was referred by Dr. Everett for a Hernia, Hernia located | | | on the abdomen left side, patient states it has been there for 1 | | | month, Patient states he had an ultrasound and MRI on Hernia, | | | Patient states once in while he gets a little pain and | | | uncomfortable. Patient would like to have surgery if possible. | +--------+ + Evaluate & Treat (Routine) + +--------+ + + + + | Status | Reason | Specialty | Diagnoses / | Referred By | Referred To | | | | | Procedures | Contact | Contact | + +--------+ + + + + | Authorized | | Surgery / | Diagnoses | Marguerite, | Paola, | | | | General | Hernia | Gypsy Qiu, | MD Than[address] | | | | Surgery | | DO [address] | | | | | | [address] | [address] | [place], [place] | | | | | | [place], | [address] Phone: | | | | | | [place] | [phone] | | | | | | [address] | Fax: | | | | | | Phone: | [phone] | | | | | | [phone] | | | | | | | Fax: | | | | | | | [phone] | | + +--------+ + + + + Encounter Details +--------+---------+ + + + | Date | Type | Department | Care Team | Description | +--------+---------+ + + + | 01/21/ | Office | [facility] | Thanh Guevara MD | Diastasis of muscle | | 2020 | Visit | GENERAL SURGERY [address] | [address] | (Primary Dx) | | | | [address] | [address] [place], [place] | | | | | [place], [place] | [address] | | | | | [address] | | | | | | [phone] | | | +--------+---------+ + + + [...] + + + | Blood Pressure | 137/90 | 01/22/2020 10:18 AM | | | | | PDT | | + + + + + | Pulse | 76 | 01/22/2020 10:18 AM | | | [...] + | Oxygen Saturation | 97% | 01/22/2020 10:18 AM | | | [...] + + + + | Height | - | [...] + documented as of this encounter Progress Thanh Lundberg MD - 01/22/2020 10:00 AM PDT [facility] Service: General surgery Outpatient Consultation DIAGNOSIS: Left flank diastases CHIEF COMPLAINT: Asymptomatic protrusion, left flank History Obtained From: Patient HISTORY OF PRESENT ILLNESS The patient is 74 y.o. male presents with left flank abdominal wall protrusion status post spine surgery. Patient was referred by Dr. Everett for a Hernia, Hernia located on the abdom en left side, patient states it has been there for 1 month, Patient states he had an ultraso und and MRI on Hernia, but no evidence of hernia reported. Patient states once in while he gets a little pain and uncomfortable. Overall symptoms tolerable and not lifestyle limiting . REVIEW OF SYSTEMS Review of Systems Constitutional: Negative. HENT: Negative. Eyes: Negative. Respiratory: Negative. Cardiovascular: Negative. Gastrointestinal: Negative. Genitourinary: Negative. Musculoskeletal: Negative. Skin: Negative. Neurological: Negative. Psychiatric/Behavioral: Negative. Past Medical History: Diagnosis Date Actinic keratosis [...] when he is focused on other topics Past Surgical History: Procedure Laterality Date COLECTOMY 2003 18" EYE MUSCLE SURGERY eye muscle correction HERNIA REPAIR 2011 umbilical hernia HERNIA REPAIR Right 2004 Groin hernia KIDNEY STONE SURGERY 1988 KNEE SURGERY Bilateral 1979 Knee arthroscopy LUMBAR LAMINECTOMY Posterior 02/23/2017 Procedure: L5-S1 Transforaminal Lumbar Interbody Fusion, Hardware Revision @ L2-3, L3-4, L 4-5; Surgeon: Koby George MD; Location: [facility] MAIN OR LUMBAR SPINE SURGERY 12/02/2014 L2-3, L3-4, L4-5 LAIF, L2-3, L3-4, L4-5 Posterior Instrumentation, L2-3 Decompression; La terality: N/A; Surgeon: Koby George MD; Location: [facility] MAIN OR PROSTATE SURGERY 2003 prostate trim SHOULDER SURGERY 1979 shoulder arthroscopic SINUS SURGERY 1989 TONSILLECTOMY TOOTH EXTRACTION 05/2014 No Known Allergies Current Outpatient Medications on File Prior to Visit Medication Sig Dispense Refill Ascorbic Acid (VITAMIN C WITH TOM HIPS) 500 MG tablet Take 500 mg by mouth Daily. Calcium Carb-Cholecalciferol (CALCIUM + D3) 600-800 MG-UNIT TABS Take 2 tablets by mout h Daily. carbidopa-levodopa (SINEMET) 25-100 mg per tablet Take 3 tablets by mouth 3 times daily . Take at 5 AM, 2 PM, and 8 PM 270 tablet 5 cariprazine (VRAYLAR) 3 mg capsule Vraylar 3 mg capsule Cholecalciferol (VITAMIN D-3) 2000 units CAPS Take 2,000 Units by mouth Daily. cyanocobalamin (VITAMIN B-12) 1000 MCG tablet Take 1,000 mcg by mouth Daily. DULoxetine (CYMBALTA) [address] capsule duloxetine 60 mg capsule,delayed release fluticasone (FLOVENT HFA) 110 mcg/puff inhaler Inhale 2 puffs into the lungs 2 times da scot. gabapentin (NEURONTIN) 400 mg capsule Take 400 [...] nightly. methotrexate (PF) 25 mg/mL injection Inject 1 mg into the muscle Once a week. Misc Natural Products (TURMERIC CURCUMIN) CAPS Take 2 capsules by mouth Daily. Multiple Vitamins-Minerals (A THRU Z ADVANCED) TABS (Patient taking differently: Take 1 tablet by mouth Daily.) mycophenolate (CELLCEPT) 500 MG tablet mycophenolate mofetil 500 mg tablet omeprazole (PRILOSEC) 20 mg capsule omeprazole 20 mg capsule,delayed release simvastatin (ZOCOR) 40 mg tablet Take 40 mg by mouth Daily. UNABLE TO FIND methotrexate sodium 25 mg/mL injection solution VRAYLAR 4.5 MG capsule No current facility-administered medications on file prior to visit. Family History Problem Relation Age of Onset Substance abuse Mother Mental illness Mother Suicide Mother 36 Early Mother 36 Depression Mother Substance abuse Father Heart disease Father Heart attack Father 68 Pacemaker Father Arthritis Son Social History Socioeconomic History Marital status: Spouse name: HENNY REA Number of children: 1 Years of education: Not on file Highest education level: Not on file Occupational History Not on file Social Needs Financial resource strain: Not on file Food insecurity: Worry: Not on file Inability: Not on file Transportation needs: Medical: Not on file Non-medical: Not on file Tobacco Use Smoking status: Former Smoker Packs/day: 2.00 Years: 23.00 Pack years: 46.00 Types: Cigarettes Start date: 10/31/1957 Last attempt to quit: 10/31/1980 Years since quittin.2 Smokeless tobacco: Never Used Substance and Sexual Activity Alcohol use: No Drug use: Yes Types: Marijuana Comment: Topical cream Sexual activity: Yes Lifestyle Physical activity: Days per week: Not on file Minutes per session: Not on file Stress: Not on file Relationships Social connections: Talks on phone: Not on file Gets together: Not on file Attends taoist service: Not on file Active member of club or organization: Not on file Attends meetings of clubs or organizations: Not on file Relationship status: Not on file Intimate partner violence: Fear of current or ex partner: Not on file Emotionally abused: Not on file Physically abused: Not on file Forced sexual activity: Not on file Other Topics Concern Not on file Social History Narrative Not on file PHYSICAL EXAM Vital Signs: BP 137/90 | Pulse 76 | Temp 36.8 C (98.3 F) (Oral) | Resp 16 | Wt 97.2 kg (214 lb 4 .8 oz) | SpO2 97% | BMI 32.58 kg/m Physical Exam Vitals signs and nursing note reviewed. Constitutional: Appearance: He is well-developed. HENT: Head: Normocephalic and atraumatic. Neck: Musculoskeletal: Normal range of motion. Cardiovascular: Rate and Rhythm: Normal rate. Pulmonary: Effort: Pulmonary effort is normal. Abdominal: Palpations: Abdomen is soft. Musculoskeletal: Normal range of motion. Skin: General: Skin is warm and dry. Neurological: Mental Status: He is alert and oriented to person, place, and time. Psychiatric: Behavior: Behavior normal. Thought Content: Thought content normal. Judgment: Judgment normal. ASSESSMENT: 74 y.o.-yr-old male who presents with diastases left flank, no palpable eviden ce of hernia. PLAN/RECOMMENDATIONS: I have counseled Uzielnolan Rea that this may represent transient laxity in the left flank status post spine surgery. Surgery was performed through the left side and can sometimes result in transient or permanent diastases secondary to loss of tone to the muscle of the left flank. Because there is no fascial defect. Attempted surgery rosana l not benefit patients. Recommend observation, especially because this is relatively asympt omatic and not lifestyle limiting. Primary Care Physician: VIRY Dennis MD *CORE MEASURES REMINDER: If the patient has a known or suspected infection prior to surger y, please add diagnosis to the problem list (consider: Infection 136.9). documented in this enco unter Plan of Treatment Not on filedocumented as of this encounter Visit Diagnoses + + | Diagnosis | + + | Diastasis of muscle - Primary | + + documented in this encounter
--- OUTSIDE RECORDS SUMMARY | ~2020-07-14 | XMS | Encounter Summary ---
Demographics + + + | Address | [address] | | | [place] [address] | + + + | Home Phone | | + + + | Preferred Language | Unknown | + + + | Marital Status | | + + + | Orthodox Affiliation | Unknown | + + + | Race | White | + + + | Ethnic Group | Not or | + + + Author + + + | Author | [facility] | | | and [place] [...] [place], [place] | | | | | [address] | | + + + + + | Mao Rea | ECON | Unknown | | + + + + + | Meredith Rea | ECON | Unknown | | + + + + + Care Team Providers + +------+ + | Care Commercial Analyst Name | Role | Phone | + +------+ + PCP | Unavailable | + +------+ + Encounter Details +--------+ + + + + | Date | Type | Department | Care Team | Description | +--------+ + + + + | 06/30/ | Hospital | [facility] | Hadley Weiss | | | 2010 | Encounter | MED CTR SLEEP | MD [place] | | | | | [place] [address] | [place] [facility] | | | | | [place], [place] | [place] [address] | | | | | [address] | [phone] | | | | | [phone] | | | +--------+ + + + [...] Disorders - Hadley Weiss Jr., MD - 06/30/2011 1:48 PM PDTDATE: 06/30/2011 cc: [facility] Hadley Weiss Jr., MD, [facility] Brandon Juarez MD CPAP TITRATION STUDY CLINICAL INFORMATION: This is a 66-year-old gentleman referred by Dr. Brandon Juarez. The p atient has daytime fatigue. He also has rheumatoid arthritis. He has possible dream enactme nt and he is known t o snore. Polysomnographic study performed on 06/21/2011 demonstrated s ignificant obstructive sleep ap addy. The respiratory disturbance index was 35.3. The apnea- hypopnea index was 33.2. The respiratory e vents occasioned significant sleep fragmentation . The respiratory arousal index was 18.4 and the resp iratory events occasioned significant oxygen desaturation with a wanda desaturation of 76%. The patie nt spent 23.3 minutes with an oxygen saturation of under 88%. There was no evidence on that study, however, of REM sleep behavior disorder. SLEEP ARCHITECTURE: Lights out was recorded at 10:24 p.m. Lights on was recorded at 5:58 a .m. The la tency to sleep onset was mildly prolonged at 32 minutes. The patient slept for 4 08.5 minutes out of 5 54 minutes of study time. The sleep efficiency is normal at 90%. The amount of N1 sleep is normal at 3.7% of the evening. The amount of N2 sleep is normal a t 43.2% of the evening. The amount of N3 sleep was normal at 30% of the evening. The patien t had 31.5 minutes m ore N3 sleep on the current study than on the diagnostic study. The am ount of rapid eye movement slee p is normal at 20% of the evening and the patient had appro ximately 17 more minutes of REM sleep on t he current study than on the diagnostic study. T he latency to rapid eye movement sleep was mildly pro longed at 211.5 minutes. The patient spent 100% of the evening in the supine position. Sleep was minimally fragmente d. The eliazar usal index is 10.1, which is better than the arousal index of 26.9 on the diagno stic study. On extended EEG montage monitoring I saw no abnormalities. There were no signs of electrica l seizure activity. There are no interictal discharges and no other focal abnormalities flako t I could identify. Additionally, behaviorally, there were no significant abnormalities. In particular, in rapi d eye move ment sleep there appeared to be adequate EMG suppression. Movements noted in rap id eye movement sleep were typical arousals with stretching and position changes. CARDIOPULMONARY MONITORING: The heart rate averaged in the 60s and fundamentally was a nor mal sinus rhythm. The patient was titrated to CPAP of 7 cm. At this level of support the re spiratory disturbanc e index was zero. Oxygen saturation wanda was 90%. LIMB MOVEMENT MONITORING: There were 12 periodic limb movements. The PLMS index is normal at 1.8. INTERPRETATION: THIS IS A SATISFACTORY CPAP TITRATION STUDY. 1. IT APPEARS THAT CPAP OF A PPROXIMATELY 7 CM IS REQUIRED FOR CONTROL OF OBSTRUCTIVE BREATHING. 2. THERE IS NO EVIDENCE ON THIS STUDY OF RAPID EYE MOVEMENT SLEEP BEHAVIOR DISORDER NOR OF EEG ABNORM ALITIES. SUGGESTIONS 1. The principles of sleep hygiene should be reviewed with the patient. 2. CPAP in the 7 c m range with chin strap and heated humidifier is advised. Hadley Weiss Jr., MD, [facility] Diplomate [place] [employer] Medicine Diplomate in Sleep Medicine Printed Circuit Board Assembler, [facility] Clinical Boat Captain Linden villafana of [facility] JOB #: [id number] EXT JOB #:[id number] <Electronicall y Signed by Hadley Weiss MD> 07/06/11 1342 documented in this encounter Plan of Treatment Not on filedocumented as of this encounter Visit Diagnoses Not on filedocumented in this encounter"
--- OUTSIDE RECORDS SUMMARY | ~2020-07-14 | XMS | Encounter Summary ---
Demographics + + + | Address | [address] | | | [place] [address] | + + + | Home Phone | | + + + | Preferred Language | Unknown | + + + | Marital Status | | + + + | Buddhist Affiliation | Unknown | + + + | Race | White | + + + | Ethnic Group | Not or | + + + Author + + + | Author | [facility] | | | and [place] | + + + | Organization | [facility] | | | [...] [place], [place] | | | | | [address] | | + + + + + | Mao Rea | ECON | Unknown | | + + + + + | Meredith Rea | ECON | Unknown | | + + + + + Care Team Providers + +------+ + | Care Charge Preparation Technician Name | Role | Phone | + +------+ + | Brandon Juarez MD | PCP | | + +------+ + Reason for Visit + +--------+ + | Reason | Onset | Comments | | | Date | | + +--------+ + | Appointment | 09/03/ | | | | 2015 | | + +--------+ + Encounter Details +--------+ + + + + | Date | Type | Department | Care Team | Description | +--------+ + + + + | 09/03/ | Telephone | [facility] | Ender Mora | Appointment | | 2015 | | NEUROSURGERY [address] | [address] | | | | | [facility] [address] | [address] [place] [place], [place] | | | | | [place], [place] | [address] | | | | | [address] | | | | | | [phone] | | | +--------+ + + + [...] this encounter Miscellaneous Notes Telephone Encounter - Karolina Nj - 09/07/2016 2:06 PM PSTScheduled with Mg Mora on 10/19/16. elephone Encount er - Emily Padilla - 09/07/2016 10:55 AM PSTRouted to front office coordinator for scheduling. Electr onically signed by Emily Padilla at 09/07/2016 10:55 AM PSTTelephone Encounter - Brenden Mora PA-C - 09/07/2016 6:34 AM PSTPlease make a follow up Appointment Thank you el ephone Encounter - Emily Padilla - 09/03/2016 12:26 PM PDTPlease review Mercedes's most amy lofton chart note and advise further. Electronically signed by Emily Padilla at 6 12:26 PM PDTTelephone Encounter - Karolina Nj - 09/03/2016 11:33 AM PDTPatient stopped by the office after an appt with Dr. Charles joiner. He was advised to make a follow up appt w [facility]. He was last seen 09/2015 and has tried injections since then. He had a new MRI in tim 2015. documented in th is encounter Plan of Treatment Not on filedocumented as of this encounter Visit Diagnoses Not on filedocumented in this encounter"
--- OUTSIDE RECORDS SUMMARY | ~2020-07-14 | XMS | Encounter Summary ---
Demographics + + + | Address | [address] | | | [place] [address] | + + + | Home Phone | | + + + | Preferred Language | Unknown | + + + | Marital Status | | + + + | Cheondoism Affiliation | Unknown | + + + | Race | White | + + + | Ethnic Group | Not or | + + + Author + + + | Author | [facility] | | | and [place] | + + + | Organization | [facility] | | [...] [place], [place] | | | | | [address] | | + + + + + | Mao Rea | ECON | Unknown | | + + + + + | Meredith Rea | ECON | Unknown | | + + + + + Care Team Providers + +------+ + | Care Tutoring Clinician Name | Role | Phone | + [...] | | [address] | [place] [address] | 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 The | [facility] | | cardiomediastinal silhouette and pulmonary vasculature [...] THE CHEST. Dictated and Signed by: Christian Andrea, | | | Electronically signed: 02/18/2017 11:52 [...] + | [facility] | [address] | [place] | [phone] | | [facility] | | [address] | | | - IMAGING | | | | + + + + + CBC with Differential (02/18/2017 9:42 AM PDT) + + + + + + | Component | Value | Ref Range | Performed | Pathologist | | | | | At | Signature | + + + + + + | White Blood | 8.0 | 4.0 - 11.0 K/uL | [facility] | | | Cells | | | [facility] | | | | | | MEDICAL | | | | | | CENTER - | | | | | | LABORATORY | | + + + + + + | Red Blood | 4.36 | 4.30 - 5.70 | [...] | | | | | g/dL | . [facility] | | | | [...] | | | Count | | | [facility] | | [...] [address] | [place] | [phone] | | [facility] | | [address] | | | - LABORATORY | | [...] | 0.75 | 0.60 - 1.30 | [facility] | | | | | mg/dL | [facility] | | | | | | MEDICAL | | | | | | CENTER - | | | | | | LABORATORY | | + + + + + + | eGFR, | >60Comment: GLOMERULAR | >=60 | [facility] | | | non- | FILTRATION | mL/min/1.73m2 | [facility] | | | [place] | RATE,ESTIMATED | | MEDICAL | | | | mL/min/1.49i3Zzld than | | CENTER - | | [...] | 9.9 | 8.3 - 10.5 | [facility] | | | | | mg/dL | [facility] | | | | | [...] [address] | [place] | [phone] | | [facility] | | [address] | | | - LABORATORY | | [...] | | | | JUAN SALDIVAR MD ([id number]) | | | | | | on [...]
--- OUTSIDE RECORDS SUMMARY | ~2020-07-14 | XMS | Encounter Summary ---
Demographics + + + | Address | [address] | | | [place] [address] | + + + | Home Phone | | + + + | Preferred Language | Unknown | + + + | Marital Status | | + + + | Sabianist Affiliation | Unknown | + + + | Race | White | + + + | Ethnic Group | Not or | + + + Author + + + | Author | [facility] | | | and [place] | + + + | Organization | [facility] | | | [...] [place] | | | | | [address] | | + + + + + | Mao Rea | ECON | Unknown | | + + + + + | Meredith Rea | ECON | Unknown | | + + + + + Care Team Providers + +------+ + | Care Cold Reduction Roller Name | Role | Phone | + +------+ + | Sherie Vela PA-C | PCP | | + +------+ + Reason for Visit + +--------+ + | Reason | Onset | Comments | | | Date | | + +--------+ + | Neurosurgery | 07/31/ | [facility] Appointment | | Appointment | 2017 | | + +--------+ + Encounter Details +--------+ + + + + | Date | Type | Department | Care Team | Description | +--------+ + + + + | 07/31/ | Telephone | [facility] | Koby George MD | Neurosurgery | | 2018 | | NEUROSURGERY [address] | [address] | Appointment (Soon | | | | [address] | [place] [address] | Appointment) | | | | [place] | [phone] | | | | | [address] | | | | | | [phone] | | | +--------+ + + + [...] this encounter Miscellaneous Notes Telephone Encounter - Andre Mars - 08/01/2018 1:28 PM PDTPatients appointment has been moved up to lectronically signed by Andre Mars at 08/01/2018 1:36 PM PDTTelephone En aliza - Leena Tiwari Cert MA - 08/01/2018 10:37 AM PDTI don't see that any additional im aging will be needed. Stated in He's note from 02/20/18, he would complete the CT scan and follow-up. CT is complete. Please make them aware. Thank you Leena elephone Remy Tilley - 07/31/2018 3:55 PM PDTPatient called back in response to Magen reyes's message, wants to know if there is imaging required prior to appt before scheduling. Ple ase advise elephone Regi Buchanan - 07/31/2018 3:24 PM PDTI called Uziel at [phone]. I spoke wi th Henny, his , and asked if they would want to move his 09/05 appointment up to 08/03 olu Mora. She sounded like she would want that, but she wanted to speak with Uziel first. She will call us back in a couple minute.Electronically signed by Regi Medina at 07/31 3:26 PM PDTdocumented in this encounter Plan of Treatment Not on filedocumented as of this encounter Visit Diagnoses Not on filedocumented in this encounter"
--- OUTSIDE RECORDS SUMMARY | ~2020-07-14 | XMS | Encounter Summary ---
Demographics + + + | Address | [address] | | | [place] [address] | + + + | Home Phone | | + + + | Preferred Language | Unknown | + + + | Marital Status | | + + + | Orthodoxy Affiliation | Unknown | + + + | Race | White | + + + | Ethnic Group | Not or | + + + Author + + + | Author | [facility] | | | and [place] | + + + | Organization | [facility] | | [...] [place], [place] | | | | | [address] | | + + + + + | Mao Rea | ECON | Unknown | | + + + + + | Meredith Rea | ECON | Unknown | | + + + + + Care Team Providers + +------+ + | Care Security Risk Analyst Name | Role | Phone | [...] Changes | NEUROSURGERY [address] | Lazarus, Technical Marketing Consultant | | | | | [address] | | | | | | [place] | | | | | | [address] | | | | | | [phone] | | | +--------+ + + + [...]
--- OUTSIDE RECORDS SUMMARY | ~2020-07-14 | XMS | Encounter Summary ---
Demographics + + + | Address | [address] | | | [place] [address] | + + + | Home Phone | | + + + | Preferred Language | Unknown | + + + | Marital Status | | + + + | Pentecostalism Affiliation | Unknown | + + + | Race | White | + + + | Ethnic Group | Not or | + + + Author + + + | Author | [facility] | | | and [place] | + + + | Organization | [facility] | | [...] [place] | | | | | [address] | | + + + + + | Mao Rea | ECON | Unknown | | + + + + + | Meredith Rea | ECON | Unknown | | + + + + + Care Team Providers + +------+ + | Care Charter Bus Driver Name | Role | Phone | + +------+ + | Sherie Vela PA-C | PCP | | + +------+ + Reason for Visit + + + | Reason | Comments | + + + | Initial Assessment | | + + + Evaluate & [...] n | Parkinson's | [facility] | [place] | | | | | disease | MD Milo | Therapy 1025 | | | | | ([facility]) G20 | [address] | | | | | Dmitry | [address] | [place], | | | | | POTATO PEELING MACHINE OPERATOR | [place], | [place] [address] | | | | | | [place] [address] | Phone: | | | | | | Phone: | [phone] | | | | | | [phone] | Fax: | | | | | | Fax: | [phone] | | | | | | [phone] | | + +--------+ + + + + Encounter Details +--------+---------+ + + + | Date | Type | Department | Care Team | Description | +--------+---------+ + + + | 04/18/ | Office | [facility] | Winnie Merino, | Parkinson's disease | | 2020 | Visit | [facility] | Speech Pathologist | ([facility]) (Primary Dx); | | | | [address] | Rashad Jose, | Cognitive | | | | [place] | Aide | communication | | | | [address] | | disorder | | | | [phone] | | | +--------+---------+ + + + [...] +---------+ + + | Blood Pressure | 136/86 [...] +---------+ + + | Oxygen Saturation | 96% [...] Progress Notes Winnie Merino, Speech Pathologist - 04/18/2020 1:00 PM PDTFormatting of this note javierronald bridget be different from the original. [facility] [address] [place] [address] Speech Therapy Initial Assessment Date: 04/18/2020 Patient Information Patient Name: Uziel eRa Date of : 1945 Age: 75 y.o. History Problem Cognitive Communication Disorder Mechanism of injury: Parkinson's Disease History of symptoms: Patient has had gradual cognitive decline; reports impaired memory and cognition that impacts communication Previous level of function and limitations: steady decline in function Work status:Retired Living situation: Lives with Social History Socioeconomic History Marital status: Spouse name: HENNY REA Number of children: 1 Years of education: Not on file Highest education level: Not on file Tobacco Use Smoking status: Former Smoker Packs/day: 2.00 Years: 23.00 Pack years: 46.00 Types: Cigarettes Start date: 10/31/1957 Quit date: 10/31/1980 Years since quittin.4 Smokeless tobacco: Never Used Substance and Sexual Activity Alcohol use: No Drug use: Yes Types: Marijuana Comment: Topical cream Sexual activity: Yes Encounter Diagnoses Code Name Primary? G20 Parkinson's disease (HCC) Yes R41.841 Cognitive communication disorder Date of Onset: 04/18/2020 Referring Provider: Murphy Ordaz MD No history on file. Past Medical History: Diagnosis Date Actinic keratosis [...] L 4-5; Surgeon: Koby George MD; Location: [facility] MAIN OR LUMBAR SPINE SURGERY 12/02/2014 L2-3, L3-4, L4-5 LAIF, L2-3, L3-4, L4-5 Posterior Instrumentation, L2-3 Decompression; La terality: N/A; Surgeon: Koby George MD; Location: [facility] MAIN OR PROSTATE SURGERY 2003 prostate trim SHOULDER SURGERY 1979 shoulder arthroscopic SINUS SURGERY 1989 TONSILLECTOMY TOOTH EXTRACTION 05/2014 Family History Problem Relation Age of Onset Substance abuse Mother Mental illness Mother Suicide Mother 36 Early Mother 36 Depression Mother Substance abuse Father Heart disease Father Heart attack Father 68 Pacemaker Father Arthritis Son Developmental History No Known Allergies Prior Treatment: none Rehab Precautions Office Visit from 04/18/2020 in [facility] Rehab Precautions Precautions Comments Depression/mental health Hx Learning Style Patient's Optimum Learning Style: reading(written information) Abuse Assessment Do you feel safe in your current relationship or home?: Concern Present(son recently was re leased from nursing home, does not live with Pt, but Pt has expressed concern regarding son's beha vior towards him.) Pain Assessment: Pain Scale Used: NUMERIC Pain Rating Pre Assessment: 5 Location: HIps, radiating up to ribcage Pain/Comfort Presence Of Pain: complains of pain/discomfort Subjective: History of Presenting Problem: Uziel is a 75 y.o. male who presents to therap with diagnosis of Parkinson's with complaints of cognitive-communication impairments impac ting quality of life, there was also mention of Lewy body dementia in the Neurology note, bu t that is not on Diagnosis list. He and his are present requesting cognitive therapy to improve communication and reduce frustration. Functional Limitations: comorbidities Precaution/special problems: depression with mental health hx Patient s Goals: think better, improve communication, decrease frsutration Objective: Voice: loudness is appropriate for this setting. Pt's did note that he projects less t martisn he used to. Difficulty hearing each other when in different rooms Expressive Language: Intelligible, functional Receptive Language: WFL for cognitive evaluation Repeatable Battery for the Assessment of Neuropsychological Status (RBANS): Uziel scored a total scale score of 71 on the RBANS (see breakdown below) and a Classificati on of moderately impaired (70-79). This score indicates he is 2 Standard Deviations (15) be low normal limits (score 100) . Scores: Total Score Index Score Classification Immediate Memory 61 Severely impaired (69 and below) List Learning 14 Story Memory 9 Visuospatial/Constructional 105 Average (90-109) Figure Copy 18 Line Orientation 18 Language 88 Minimally impaired (80-89) Picture Naming 10 Semantic Fluency 12 Attention 56 Severely impaire (69 and below) Digit Span 5 Coding 18 Delayed Memory 75 Moderately impaired (70-79) List Recall 4 List Recognition 16 Story Recall 6 Figure Recall 10 Sum of Index Scores: 385 Total Scale Score: 71, scoring in the 3rd percentile Interpretation: Qualitative Descriptions of RBANS Index Scores Index Score Classification 130 and above Very Superior 120-129 Superior 110-119 Highly Average 90-109 Average 80-89 Low Average 70-79 Borderline 69 and below Extremely Low Assessment Patient presents to speech therapy with complaints of difficulty with memory and communic ation . Patient reports that his cognitive impairments impact communication abilities and ca use high frustration. Objective exam reveals impairments with moderate to severely impaired immediate memory, attention, and delayed recall. These impairments and diagnosis are causing functional limitations with patient s inability to functionally communicate, impact quali ty of daily life, and affecting participation in day to day routines. Signs and symptoms are consistent with Parkinson's. Complexities contributing to frequency and duration of therapy : depression. Rehabilitation potential: Patient demonstrates good potential to achieve established goals to address the documented impairments by participating in skilled speech and language therap y services. Goals: Additional POTATO PEELING MACHINE OPERATOR Goals OP POTATO PEELING MACHINE OPERATOR Goals: Goal 1, Goal 2 Goal 1: Pt will demonstrate understanding and use of memory notebook to improve recall, and communication Goal 1 Status: In progress Goal 2: Patients will verbalize understanding of functional use of memory notebook and how to assist patient with use to improve communication and recall. Goal 2 Status: In progress Plan Date of Onset: 04/18/2020 Start of Care Date: 04/18/2020 Requested # of Visits: 13 visits 1x/week for 1xweek for 13 weeks Certification From: 04/18/2020 Certification To: 07/17/2020 Treatment Plan/Interventions 23125 - Cognitive [id number] Interventions for Cog Fxn Patient and/or family has indicated understanding of treatment needs and actively particip ated in the creation of this plan for care. Today's Treatment Start Time: 1300 Stop time: 1355 Duration: 55 minutes Timed Treatment Codes: 0 minutes # of Speech Visits to Date: 1 Objective: Discussed goals, benefit of cognitive-communication therapy, and cognitive impai rments present and the impact these impairments have on communication and quality of life. Next Visit: Establish training and use of memory journal, and establishing daily routines t o decrease communication breakdowns and improve recall/initiation Electronically signed by: Winnie Merino Speech Pathologist, 04/18/2020 2:33 PM PDT Patient Name: Uziel eRa/: 1945/ doc umented in this encounter Plan of Treatment Not on filedocumented as of this encounter Visit Diagnoses + + | Diagnosis | + + | Parkinson's disease (HCC) - Primary Paralysis agitans | + + | Cognitive communication disorder | + + documented in this encounter
--- OUTSIDE RECORDS SUMMARY | ~2020-07-14 | XMS | Encounter Summary ---
Demographics + + + | Address | [address] | | | [place] [address] | + + + | Home Phone [...] + | Author | [facility] | | | and [place] | + + + | Organization | [facility] | | | and [...] [place], [place] | | | | | [address] | | + + + + + | Mao Rea | ECON | Unknown | | + + + + + | Meredith Rea | ECON | Unknown | | + + + + + Care Team Providers + +------+ + | Care Spinning Frame Fixer Name | Role | Phone | + +------+ + | Brandon Juarez MD | PCP | | + +------+ + Encounter Details +--------+ + + + + | Date | Type | Department | Care Team | Description | +--------+ + + + + | 11/25/ | Orders Only | [facility] | Ender Mora | S/P lumbar fusion | | 2015 | | NEUROSURGERY [address] | [address] | (Primary Dx) | | | | [address] | [address] [place], [place] | | | | | [place], [place] | [address] | | | | | [address] | | | | | | [phone] | | | +--------+ + + + [...] from L2 through L5 with interbody | [facility] | | hardware at these levels. [...] | + + + + + | [address] | [address] | [place] | [phone] | | [facility] | | [address] | | | - IMAGING | | | | + + + + + documented in this encounter Visit Diagnoses + + | Diagnosis | + + | S/P lumbar fusion - Primary Arthrodesis status | + + documented in this encounter"
--- OUTSIDE RECORDS SUMMARY | ~2020-07-14 | XMS | Encounter Summary ---
Demographics + + + | Address | [address] | | | [place] [address] | + + + | Home Phone | | + + + | Preferred Language | Unknown | + + + | Marital Status | | + + + | Anabaptism Affiliation | Unknown | + + + | Race | White | + + + | Ethnic Group | Not or | + + + Author + + + | Author | [facility] | | | and [place] | + + + | Organization | [facility] | | | and [...] [place] | | | | | [address] | | + + + + + | Mao Rea | ECON | Unknown | | + + + + + | Meredith Rea | ECON | Unknown | | + + + + + Care Team Providers + +------+ + | Care Gse Mechanic Name | Role | Phone | + +------+ + | Sherie Vela PA-C | ENA | | + +------+ + Encounter Details +--------+ + + + + | Date | Type | Department | Care Team | Description | +--------+ + + + + | 03/08/ | Imaging | [facility] | Provider, | | | 2018 | Exam | [facility] | MD [address] | | | | | IMAGING [address] | E[address] | | | | | [address] | [place] [address] | | | | | [place] [address] | | | | | | [phone] | | | +--------+ + + + [...]
--- OUTSIDE RECORDS SUMMARY | ~2020-07-14 | XMS | Encounter Summary ---
Demographics + + + | Address | [address] | | | [place] [address] | + + + | Home Phone | | + + + | Preferred Language | Unknown | + + + | Marital Status | | + + + | Mosque Affiliation | Unknown | + + + | Race | White | + + + | Ethnic Group | Not or | + + + Author + + + | Author | [facility] | | | and [place] | + + + | Organization | [facility] | | | [...] [place] | | | | | [address] | | + + + + + | Mao Rea | ECON | Unknown | | + + + + + | Meredith Rea | ECON | Unknown | | + + + + + Care Team Providers + +------+ + | Care Broadcast Operations Engineer Name | Role | Phone | + +------+ + | Sherie Vela PA-C | ENA | | + +------+ + Encounter Details +--------+ + + + + | Date | Type | Department | Care Team | Description | +--------+ + + + + | 12/21/ | Orders Only | [facility] [place] | Luis Carlos Jiménez | Lumbar radiculopathy | | 2018 | | PHYSIATRY [address] | [address] | (Primary Dx) | | | | [address] | [place] | | | | | [place] | [address] | | | | | [address] | | | | | | [phone] | | | +--------+ + + + [...]
--- OUTSIDE RECORDS SUMMARY | ~2020-07-14 | XMS | Encounter Summary ---
Demographics + + + | Address | [address] | | | [place] [address] | + + + | Home Phone [...] Author | [facility] [...] [place] | | | | | [address] | | + + + + + | Mao Rea | ECON | Unknown | | + + + + + | Meredith Rea | ECON | Unknown | | + + + + + Care Team Providers + +------+ + | Care Water System Operator Name | Role | Phone | [...] | | | n | Parkinson's | [facility] | [place] | | | | | disease | MD Milo | Therapy [address] | | | | | ([facility]) G20 | [address] | | | | | Dmitry | [address] | [place], | | | | | MOTOR COACH CHAUFFEUR | [place], | [place] [address] | | | | | | [place] [address] | Phone: | | | | | | Phone: | [phone] | | | | | | [phone] | Fax: | | | | | | Fax: | [phone] | | | | | | [phone] | | + +--------+ + + + + Encounter Details +--------+---------+ + + + | Date | Type | Department | Care Team | Description | +--------+---------+ + + + | 05/06/ | Office | [facility] [place] | Winnie Merino, | Cognitive | | 2020 | Visit | [facility] | Speech Pathologist | communication | | | | [address] | | disorder | | | | [place] | | | | | | [address] | | | | | | [phone] | | | +--------+---------+ + + + [...] Progress Notes Winnie Merino, Speech Pathologist - 05/06/2020 1:30 PM PDTFormatting of this note [facility] t be different from the original. [facility] [employer] [address] [place] [facility] [address] Speech Therapy Daily Treatment Note Date: 05/06/2020 Patient Information Patient Name: Uziel Rea Date of : 1945 Age: 75 y.o. 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 Date of Onset: 04/18/2020 Referring Provider: Murphy Ordaz MD Rehab Precautions Office Visit from 04/18/2020 in [facility] Rehab Precautions Precautions Comments Depression/mental health Hx Rehab Learning Style [facility] Patient's Optimum Learning Style reading [written information] Today's Treatment Start Time: 1317 Stop time: 1352 Duration: 35 minutes Timed Treatment Codes: 0 minutes # of Speech Visits to Date: 3 Pain Assessment: Pain Scale Used: (lower back, right hip, left shoulder, stomach pain ; 7) Pain Rating Pre Assessment: 7 Subjective: Patient and pt's , Maribell, present for session. Brought memory notebook, and added the calendar to it. Patient reports physically not feeling well due to pain, but that he had one day where he completed all tasks on his daily list. Maribell reports hoping he will increase viewing of calendar. Pt did not check things off the checklist, but did use it to initiate tasks. Maribell and Uziel feel like initiation of daily tasks has improved, even with i ncreased pain. Objective: Adjustments to memory notebook made to better serve pt in use. Put daily schedul e in front tab to easily view list of items to complete. Added "daily notes" section where p t can write down date, daily appointments, and anything else he would like to remember about the day. Added "medications" tab with list of medications. Training in use of daily notes s ection completed and also trained use of crossing off previous day on calendar for easier or ientation to day. Assessment: Uziel will continue to benefit from reminders for use of notebook; Maribell orozco rated understanding on need for cues for appropriate use and establishing a routine. Plan: Assess functional and successful use of memory notebook to initiate tasks with daily schedule, daily note/orientation, understanding and use of after visit summary tab. Electronically signed by: Winnie Merino Speech Pathologist, 05/06/2020 2:06 PM PDT Patient Name: Uziel Rea/: 1945/ doc umented in this encounter Plan of Treatment Not on filedocumented as of this encounter Visit Diagnoses + + | Diagnosis | + + | Cognitive communication disorder | + + documented in this encounter
--- OUTSIDE RECORDS SUMMARY | ~2020-07-14 | XMS | Encounter Summary ---
Demographics + + + | Address | [address] | | | [place] [address] | + + + | Home Phone [...] | Author | [facility] | [...] Henny Rea | ECON | [address] | | | | | [place] | | | | | [address] | | + + + + + | Mao Rea | ECON | Unknown | | + + + + + | Meredith Rea | ECON | Unknown | | + + + + + Care Team Providers + +------+ + | Care Mechatronics Technician Name | Role | Phone | + +------+ + | Sherie Vela PA-C | PCP | | + +------+ + Reason for Visit + +--------+ + | Reason | Onset | Comments | | | Date | | + +--------+ + | Patient Education | 02/07/ | | | | 2019 | | + +--------+ + Encounter Details +--------+ + + + + | Date | Type | Department | Care Team | Description | +--------+ + + + + | 02/07/ | Telephone | [facility] | Jarvis Dawson, | Patient Education | | 2018 | | NEUROLOGY [facility] | [address] | | | | | [address] [facility] | [place] [address] | | | | | [address] [place] | [place] | | | | | [place] [address] | [address] | | | | | [phone] | | | +--------+ + + + [...] Telephone Encounter - Palma Silva RN - 02/07/2019 2:28 PM PDTMailed him our educ ational handout on this program. Electronically signed by: Palma Silva RN 02/07/2019 14:28 ----- Message from Jarvis Dawson MD sent at 02/07/2019 11:47 PDT ----- Send information on [employer] boxing to the patient. documented in th is encounter Plan of Treatment Not on filedocumented as of this encounter Visit Diagnoses Not on filedocumented in this encounter"
--- OUTSIDE RECORDS SUMMARY | ~2020-07-14 | XMS | Encounter Summary ---
Demographics + + + | Address | [address] | | | [place] [address] | + + + | Home Phone [...] + | Author | [facility] | [...] [place], [place] | | | | | [address] | | + + + + + | Mao Rea | ECON | Unknown | | + + + + + | Meredith Rea | ECON | Unknown | | + + + + + Care Team Providers + +------+ + | Care Paralegal Supervisor Name | Role | Phone | + +------+ + | Brandon Juarez MD | PCP | | + +------+ + Encounter Details +--------+ + + + + | Date | Type | Department | Care Team | Description | +--------+ + + + + | 02/18/ | Hospital | 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 The | [facility] | | cardiomediastinal silhouette and pulmonary vasculature [...] + | [address] | [address] | [place], [place] | [phone] | | [facility] | | [address] | | | - IMAGING | | [...]
--- OUTSIDE RECORDS SUMMARY | ~2020-07-14 | XMS | Encounter Summary ---
Demographics + + + | Address | [address] | | | [place] [address] | + + + | Home Phone [...] + + | Author | [facility] | | | and [place] | + + + | Organization | [facility] | | | [...] [place], [place] | | | | | [address] | | + + + + + | Mao Rea | ECON | Unknown | | + + + + + | Meredith Rea | ECON | Unknown | | + + + + + Care Team Providers + +------+ + | Care Website Developer Name | Role | Phone | [...] | | | | | stenosis | [address] | [place], [place] | | | | | Lumbalgia | [place], | [address] | | | | | Lumbar | [place] [address] | Phone: | | | | | degenerative | Phone: | [phone] | | | | | disc | [phone] | Fax: | | | | | disease | Fax: | [phone] | | | | | Lumbar facet | [phone] | | | | | | arthropathy | | | | | | | Procedures | | | | | | | MS OFFICE | | | | | | [...] + + | 08/20/ | Office | [facility] | Koby George MD | Flat back syndrome | | 2013 | Visit | NEUROSURGERY [address] | [address] | (Primary Dx); | | | | [address] | [place] [address] | Degenerative disc | | | | [place] | [phone] | disease, lumbar; | | | | [address] | | 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 documented in this encounter Progress Notes Koby George MD - 08/20/2014 8:26 AM PDTFormatting of this note might be different from t he original. Koby George MD [address] [facility], [address] [place] [address] FAX: NEUROSURGERY HISTORY AND PHYSICAL EXAMINATION CHIEF [...] no apparent deficits with short or termite exterminator memory. CRANIAL NERVES: II: Acuity is [...] Intrinsics 5 5 Ulnar Intrinsics 5 5 Line Maintenance Strength 5 5 Hip Flexion 5 5 [...] I spent 1 hour in visit with Uzielnolan Rea today with the majority of time spent student counsellor ling the patient on his diagnosis, options for his care, and coordinating his care. ELECTRONICALLY SIGNED BY: Koby George MD, 08/20/2014 9:47 documented in this encou nter Miscellaneous Notes Miscellaneous - [facility] - 08/20/2014 12:00 AM PDT iscellaneous - [facility] - 08/20/2014 12:00 AM PDTEle ctronically signed by Mary Shaikh at 08/23/2014 2:13 PM PDTdocumented in this encounter Plan of [...]
--- OUTSIDE RECORDS SUMMARY | ~2020-07-14 | XMS | Encounter Summary ---
Demographics + + + | Address | [address] | | | [place] [address] | + + + | Home Phone [...] + | Author | [facility] | | | and [place] [...] [place] | | | | | [address] | | + + + + + | Mao Rea | ECON | Unknown | | + + + + + | Meredith Rea | ECON | Unknown | | + + + + + Care Team Providers + +------+ + | Care Fire Lieutenant Name | Role | Phone | + +------+ + | Sherie Vela PA-C | ENA | | + +------+ + Encounter Details +--------+ + + + + | Date | Type | Department | Care Team | Description | +--------+ + + + + | 07/22/ | Orders Only | [facility] | Luis Carlos Jiménez | Lumbar radiculopathy | | 2017 | | PHYSIATRY [address] | TMD [address] | (Primary Dx) | | | | [address] | [place] | | | | | [place] | [address] | | | | | [address] | | | | | | [phone] | | | +--------+ + + + [...]
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
--- OUTSIDE RECORDS SUMMARY | ~2020-07-14 | XMS | Encounter Summary ---
Demographics + + + | Address | [address] | | | [place] [address] | + + + | Home Phone [...] | Author | [facility] | | [...] [place] | | | | | [address] | | + + + + + | Mao Rea | ECON | Unknown | | + + + + + | Meredith Rea | ECON | Unknown | | + + + + + Care Team Providers + +------+ + | Care Accountant Systems Name | Role | Phone | [...] + + | 08/03/ | Office | [facility] | Ender Mora | S/P lumbar fusion | | 2018 | Visit | NEUROSURGERY [address] | [address] | (Primary Dx); | | | | [address] | [address] [place], [place] | Spondylolisthesis of | | | | [place] | [address] | lumbar region; | | | | [address] | | Pseudoarthrosis of | | | | [phone] | | lumbar spine | +--------+---------+ + [...] encounter Patient Instructions Patient Instructions Abigail Thornton, Bank Guard - 08/03/2018 9:30 AM PDTIt was a [...] [facility] [address] [place] [address] FAX: NEUROSURGERY FOLLOW-UP CHIEF COMPLAINT: Chief Complaint [...] 3 tablets on Mon, WED, and FRI [place]-3 Fatty Acids (FISH OIL) 1200 MG CAPS [...] has no apparent deficits with short or mcc memory. CRANIAL NERVES: II: Acuity is intact. [...] Intrinsics 5 5 Ulnar Intrinsics 5 5 Flight Engineer Instructor Strength 5 5 Hip Flexion 5 4+ [...] if a new Lumbar CT is needed. Ender Corona PA-C, personally performed the services described in [...]
--- OUTSIDE RECORDS SUMMARY | ~2020-07-14 | XMS | Encounter Summary ---
Demographics + + + | Address | [address] | | | [place] [address] | + + + | Home Phone [...] Author | [facility] | | | and [...] [place] | | | | | [address] | | + + + + + | Mao Rea | ECON | Unknown | | + + + + + | Meredith Rea | ECON | Unknown | | + + + + + Care Team Providers + +------+ + | Care Track Announcer Name | Role | Phone | + [...] | | | | | dysfunction | [address] | [address] | | | | | of both | [place], | [address] | | | | | sides | [place] [address] | [place], [place] | | | | | History of | Phone: | [phone] | | | | | lumbar | [phone] | Phone: | | | | | fusion | Fax: | [phone] | | | | | Procedures | [phone] | Fax: | | | | | HIM 07/27 | | [phone] | +--------+ + + + + + Reason for Visit + + + | Reason | Comments | + + + | Back Pain | | + + + Encounter Details +--------+---------+ + + + | Date | Type | Department | Care Team | Description | +--------+---------+ + + + | 07/20/ | Office | [facility] | Logna Soto, | Chronic left-sided | | 2017 | Visit | PHYSIATRY [address] | [address] | low back pain with | | | | [address] | [place] | left-sided sciatica | | | | [place] | [address] | (Primary Dx); Lumbar | | | | [address] | | radiculopathy; | | | | [phone] | | Sacroiliac joint | | | [...] encounter Patient Instructions Patient Instructions Claudia Strickland, Sleeve Maker - 07/20/2017 10:50 AM PDT Follow-up at [...] of the procedure you must provide a commercial front load driver to take you home. For all [...] or intermodal owner operator truck driver memory. The cranial nerves appear grossly intact. Sensory exam: Decreased sensenation over L4 dermatome bilaterally to light touch. MOTOR EXAM: (5 IS NORMAL) * Indicates pain limited MUSCLE/ MOVEMENT: RIGHT LEFT Deltoids 5 5 Biceps 5 5 Triceps 5 5 Wrist Flexion 5 5 Wrist Extension 5 5 Finger Abduction 5 5 Operator Cavity Pump Strength 5 5 Hip Flexion 5 5 [...] today with Uziel Rea. We discussed that surgi akila treatment is [...]
--- OUTSIDE RECORDS SUMMARY | ~2020-07-14 | XMS | Encounter Summary ---
Demographics + + + | Address | [address] | | | [place] [address] | + + + | Home Phone [...] + | Author | [facility] | | [...] [place], [place] | | | | | [address] | | + + + + + | Mao Rea | ECON | Unknown | | + + + + + | Meredith Rea | ECON | Unknown | | + + + + + Care Team Providers + +------+ + | Care Vegetable Tester Name | Role | Phone | + +------+ + | Brandon Juarez MD | PCP | | + +------+ + Encounter Details +--------+ + + + + | Date | Type | Department | Care Team | Description | +--------+ + + + + | 10/21/ | Hospital | [facility] | Koby George MD | S/P lumbar fusion | | 2015 | Encounter | MED CTR XRAY [address] | [address] | | | | | [place] | [place] [address] | | | | | [place] [address] | [phone] | | | | | [phone] | | | +--------+ + + + [...] priors. FINDINGS: Again visualized is | [facility] | | hardware for posterior fusion from L2 through L5 with interbody | [facility] | | hardware at these [...] | + + + + + | [facility] | [address] | [place] | [phone] | | [facility] | | [address] | | | - IMAGING | | | | + + + + + documented in this encounter Visit Diagnoses + + | Diagnosis | + + | S/P lumbar fusion Arthrodesis status | + + documented in this encounter"
--- OUTSIDE RECORDS SUMMARY | ~2020-07-14 | XMS | Encounter Summary ---
Demographics + + + | Address | [address] | | | [place] [address] | + + + | Home Phone | | + + + | Preferred Language | Unknown | + + + | Marital Status | | + + + | Yazidi Affiliation | Unknown | + + + | Race | White | + + + | Ethnic Group | Not or | + + + Author + + + | Author | [facility] | | | and [place] | + + + | Organization | [facility] | | | [...] [place] | | | | | [address] | | + + + + + | Mao Rea | ECON | Unknown | | + + + + + | Meredith Rea | ECON | Unknown | | + + + + + Care Team Providers + +------+ + | Care Lace Pinner Name | Role | Phone | + +------+ + | Sherie Vela PA-C | ENA | | + +------+ + Encounter Details +--------+ + + + + | Date | Type | Department | Care Team | Description | +--------+ + + + + | 05/29/ | Orders Only | [facility] | Provider, | | | 2019 | | SYSTEM GENERIC OP | [address] | | | | | [address] | [address] [place] | | | | | [address] [place], [place] | [place] [address] | | | | | [address] | | | | | | [phone] | | | +--------+ + + + [...]
--- OUTSIDE RECORDS SUMMARY | ~2020-07-14 | XMS | Encounter Summary ---
Demographics + + + | Address | [address] | | | [place] [address] | + + + | Home Phone [...] + + + | Author | [facility] | | | and [place] | + + + | Organization | [facility] | | | [...] [place], [place] | | | | | [address] | | + + + + + | Mao Rea | ECON | Unknown | | + + + + + | Meredith Rea | ECON | Unknown | | + + + + + Care Team Providers + +------+ + | Care Oriental Rug Repairer Name | Role | Phone | + [...] + + | 11/27/ | Office | [facility] | Ender Mora | Lumbar stenosis with | | 2014 | Visit | NEUROSURGERY [address] | [address] | neurogenic | | | | [address] | [address] [place], [place] | claudication | | | | [place], [place] | [id number] | (Primary Dx); | | | | [address] | | Spondylolisthesis of | | | | [phone] | | lumbar region; Left | | [...] t from the original. DOM Sampson [address] [facility] [address] [place] [address] FAX: NEUROSURGERY HISTORY AND PHYSICAL EXAMINATION CHIEF [...]
--- OUTSIDE RECORDS SUMMARY | ~2020-07-14 | XMS | Encounter Summary ---
Demographics + + + | Address | [address] | | | [place] [address] | + + + | Home Phone [...] + + + | Author | [facility] | | | and [place] | + + + | Organization | [facility] | | [...] [place] | | | | | [address] | | + + + + + | Mao Rea | ECON | Unknown | | + + + + + | Meredith Rea | ECON | Unknown | | + + + + + Care Team Providers + +------+ + | Care Journalists And Other Writers Name | Role | Phone | + [...] + + | 11/20/ | Office | [facility] | Logan Soto, | Chronic left-sided | | 2019 | Visit | PHYSIATRY [address] | [address] | low back pain with | | | | [address] | [place] | left-sided sciatica | | | | [place] | [address] | (Primary Dx); Lumbar | | | | [address] | | radiculopathy; | | | | [phone] | | History of lumbar | | | | | | fusion; 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 If his office has not contacted you within one we ek, to schedule the injection, please contact my clinic. Your injection will be performed a [facility]. Please take [...] the procedure you must provide a driver salesman to take you home. For all procedur es it is recommended that someone else drive you home. documented in this encounter Progress Notes Logan Soto MD - 11/20/2018 11:30 AM PSTFormatting of this note might be different fro m the original. Logan Soto MD [address] [facility], [address] [place], [place] [id number] FAX: PHYSICAL MEDICINE AND REHABILITATION H&P CHIEF COMPLAINT: Chief Complaint Patient presents with Back Pain HISTORY OF PRESENT ILLNESS: Uziel Rea is a 73 y.o. male being seen today in follow-up for complaints of back raj n and to review response to interventional injections. Uziel Rea was last seen on 07/17/18. Previously it was recommended that he complete repeat treatment with Dr. Ernesto talamantes. Overall Uziel Rea reports that his symptoms [...] of gabapentin and Cymbalta, and steroid injections. Brenden Rea does describe numbness of the bilateral [...] left L2-L3 transforaminal epidural steroid injection. Uziel Holt ignacio Rona's most recent injection was completed 07/24/18, with [...] ta bles on Tuesday, Tuesday, and Tuesday [place]-3 Fatty Acids (FISH OIL) 1200 MG CAPS [...] deficits with short or skilled nursing memory. The cranial nerves appear grossly intact. [...] goodresponse to lumbar steroid injections completed in Jul. He denies side effects to injection. We [...]
--- OUTSIDE RECORDS SUMMARY | ~2020-07-14 | XMS | Encounter Summary ---
Demographics + + + | Address | [address] | | | [place] [address] | + + + | Home Phone [...] | Author | [facility] | [...] [place], [place] | | | | | [address] | | + + + + + | Mao Rea | ECON | Unknown | | + + + + + | Meredith Rea | ECON | Unknown | | + + + + + Care Team Providers + +------+ + | Care Flare Stitcher Name | Role | Phone | + +------+ + | Brandon Juarez MD | PCP | | + +------+ + Encounter Details +--------+ + + + + | Date | Type | Department | Care Team | Description | +--------+ + + + + | 06/17/ | Hospital | [facility] | Logan Soto, | Lumbalgia; Lumbar | | 2013 | Encounter | MED CTR XRAY [address] | MD [address] | radiculopathy; | | | | [address] [place] | [place] | Lumbar spondylosis; | | | | [place] [address] | [address] | Left leg weakness; | | | | [phone] | | Lower extremity | | | [...] + | MISCELLANEOUS LAB | | | [phone] | + +---------+ + + | MISCELANIOUS LAB | | | [phone] | + +---------+ + + documented in [...]
--- OUTSIDE RECORDS SUMMARY | ~2020-07-14 | XMS | Encounter Summary ---
Demographics + + + | Address | [address] | | | [place] [address] | + + + | Home Phone [...] + + + | Author | [facility] | | | and [place] | + + + | Organization | [facility] | | [...] [place], [place] | | | | | [address] | | + + + + + | Mao Rea | ECON | Unknown | | + + + + + | Meredith Rea | ECON | Unknown | | + + + + + Care Team Providers + +------+ + | Care Store Receiving Specialist Name | Role | Phone | [...] + + | 03/07/ | Office | [facility] | Koby George MD | S/P lumbar fusion | | 2015 | Visit | NEUROSURGERY [address] | [address] | (Primary Dx) | | | | [address] [facility] [address] | [place] [address] | | | | | [place] | [phone] | | | | | [address] | | | | | | [phone] | | | +--------+---------+ + + + [...] t he original. Koby George MD [address] [facility], [address] [place], [place] [id number] FAX: NEUROSURGERY FOLLOW-UP CHIEF COMPLAINT: Chief Complaint [...] Laterality Date Prostate surgery prostate trim Colectomy 2004 Hernia repair 2011 umbilical hernia in 2010 and 2003 right groin hernia Kidney stone surgery 1988 Knee surgery 1979 bilat knee arthroscopy Shoulder surgery 1979 shoulder arthroscopic Tonsillectomy Eye muscle surgery eye muscle correction Tooth extraction 05/2014 Lumbar spine surgery 12/02/2014 L2-3, L3-4, L4-5 LAIF, L2-3, L3-4, L4-5 Posterior Instrumentation, L2-3 Decompression; L aterality: N/A; Surgeon: Koby George MD; Location: [facility] MAIN OR CURRENT MEDICATIONS: Current Outpatient [...] 2 or 3 Vw (10/21/2015 9:13 AM [facility]) + + | Specimen | + + | | + + + + + | Narrative | Performed At | + + + | XR LUMBAR SPINE 2 OR 3 VW 10/21/2015 9:13 AM HISTORY: Postop. | [facility] | | COMPARISON: Multiple priors. FINDINGS: Again visualized is | [facility] | | hardware for posterior fusion from L2 through L5 with interbody | [facility] | | hardware at these levels. [...] + | [address] | [address] | [place] | [phone] | | [facility] | | [address] | | | - IMAGING | | | | + + + + + documented in this encounter Visit Diagnoses + + | Diagnosis | + + | S/P lumbar fusion - Primary Arthrodesis status | + + documented in this encounter
--- OUTSIDE RECORDS SUMMARY | ~2020-07-14 | XMS | Encounter Summary ---
Demographics + + + | Address | [address] | | | [place] [address] | + + + | Home Phone [...] | Author | [facility] [...] [place], [place] | | | | | [address] | | + + + + + | Mao Rea | ECON | Unknown | | + + + + + | Meredith Rea | ECON | Unknown | | + + + + + Care Team Providers + +------+ + | Care Casing Operator Name | Role | Phone | + +------+ + | Brandon Juarez MD | PCP | | + +------+ + Encounter Details +--------+ + + + + | Date | Type | Department | Care Team | Description | +--------+ + + + + | 11/27/ | Hospital | [facility] | Koby George MD | | | 2014 | Encounter | MED CTR XRAY [address] | [address] | | | | | [place] | [place] [address] | | | | | [place] [address] | [phone] | | | | | [phone] | | | +--------+ + + + [...] + | MISCELLANEOUS LAB | | | [phone] | + +---------+ + + | MISCELANIOUS LAB | | | [phone] | + +---------+ + + documented in this encounter Visit Diagnoses Not on filedocumented in this encounter"
--- OUTSIDE RECORDS SUMMARY | ~2020-07-14 | XMS | Encounter Summary ---
Demographics + + + | Address | [address] | | | [place] [address] | + + + | Home Phone [...] Author | [facility] [...] [place] | | | | | [address] | | + + + + + | Mao Rea | ECON | Unknown | | + + + + + | Meredith Rea | ECON | Unknown | | + + + + + Care Team Providers + +------+ + | Care Medical Sales Consultant Name | Role | Phone | [...] | Lumbar | [place], | [address] | | | | | radiculopath | Luis Carlos Lerner MD | [place], | | | | | y | [address] | [place] | | | | | Procedures | [place] | [address] | | | | | [place] INJECT | [facility], [place] | Phone: | | | | | ANES/STEROID | [address] | [phone] | | | | | [place]AM[place] | Phone: | Fax: | | | | | LUMBAR/SACRA | [phone] | [phone] | | | | | L W IMG | Fax: | | | | | | GUIDE ,1 | [phone] | | | | | | [place] | | | | | | | [...] + + | 03/24/ | Hospital | [facility] | Luis Carlos Jiménez | Lumbar radiculopathy | | 2018 | Encounter | MED CTR XRAY [address] | T, [address] | | | | | [place] | [place], [place] | | | | | [place] [address] | [address] | | | | | [phone] | | | | | | | Survey Associate, [facility] | | | | | | [...] 108 (90 | | | 0 | 01/19/20 | | | Base) MCG/ACT | | [...] + + | Performing | Address | City/State/[facility] | Phone Number | | Organization | [...]
--- OUTSIDE RECORDS SUMMARY | ~2020-07-14 | XMS | Encounter Summary ---
Demographics + + + | Address | [address] | | | [place] [address] | + + + | Home Phone [...] | Author | [facility] | | | and [...] [place], [place] | | | | | [address] | | + + + + + | Mao Rea | ECON | Unknown | | + + + + + | Meredith Rea | ECON | Unknown | | + + + + + Care Team Providers + +------+ + | Care Business Liaison Officer Name | Role | Phone | + +------+ + | Brandon Juarez MD | PCP | | + +------+ + Encounter Details +--------+ + + + + | Date | Type | Department | Care Team | Description | +--------+ + + + + | 03/07/ | Hospital | [facility] | Ender Mora | Flat back syndrome; | | 2014 | Encounter | MED CTR XRAY [address] | [address] | Lumbar stenosis with | | | | [place] | [address] [place], [place] | neurogenic | | | | [place] [address] | [phone] | claudication; S/P | | | | [phone] | | lumbar fusion | +--------+ + + + + [...] from L2 through L5 with interbody | [facility] | | hardware at these levels. [...] [address] | [place] | [phone] | | [facility] | | [address] | | | - IMAGING | | [...]
--- OUTSIDE RECORDS SUMMARY | ~2020-07-14 | XMS | Encounter Summary ---
Demographics + + + | Address | [address] | | | [place] [address] | + + + | Home Phone | | + + + | Preferred Language | Unknown | + + + | Marital Status | | + + + | Muslim Affiliation | Unknown | + + + | Race | White | + + + | Ethnic Group | Not or | + + + Author + + + | Author | [facility] | | | and [place] | + + + | Organization | [facility] | | [...] [place], [place] | | | | | [address] | | + + + + + | Mao Rea | ECON | Unknown | | + + + + + | Meredith Rea | ECON | Unknown | | + + + + + Care Team Providers + +------+ + | Care Gta Name | Role | Phone | + +------+ + | Brandon Juarez MD | PCP | | + +------+ + Encounter Details +--------+ + + + + | Date | Type | Department | Care Team | Description | +--------+ + + + + | 06/17/ | Hospital | [facility] | Logan Soto, | Lumbar radiculopathy | | 2016 | Encounter | MED CTR LABORATORY | [address] | | | | | [address] [place] | [place] | | | | | [place] | [address] | | | | | [address] | | | | | | [phone] | | | +--------+ + + + [...] mL/min/1.73m2 | [facility] | | | [place] | RATE,ESTIMATED | | MEDICAL | | | | mL/min/1.24e5Vqvw than | | CENTER - | | [...] | ine Ratio | | | [facility] | | [...] [address] | [place] | [phone] | | [facility] | | [address] | | | - LABORATORY | | | | + + + + + documented in this encounter Visit Diagnoses + + | Diagnosis | + + | Lumbar radiculopathy Thoracic or lumbosacral neuritis or radiculitis, unspecified | + + documented in this encounter"
--- OUTSIDE RECORDS SUMMARY | ~2020-07-14 | XMS | Encounter Summary ---
Demographics + + + | Address | [address] | | | [place] [address] | + + + | Home Phone [...] + | Author | [facility] | | [...] [place] | | | | | [address] | | + + + + + | Mao Rea | ECON | Unknown | | + + + + + | Meredith Rea | ECON | Unknown | | + + + + + Care Team Providers + +------+ + | Care Special Events Manager Name | Role | Phone | + +------+ + | Sherie Vlea PA-C | PCP | | + +------+ + Reason for Visit + + + | Reason | Comments | + + + | Pain Management | | + + + Encounter Details +--------+ + + + + | Date | Type | Department | Care Team | Description | +--------+ + + + + | 01/01/ | Documentati | [facility] | Koby George MD | Pain Management | | 2019 | on | NEUROSURGERY [address] | [address] | | | | | [address] [facility] [address] | [place] [address] | | | | | [place] | [phone] | | | | | [address] | | | | | | [phone] | | | +--------+ + + + [...] of this encounter Progress Notes Abigail Thornton, Orthopaedic Physician Assistant - 01/01/2019 4:41 PM PST Outpatient Morphine Equivalent Daily Dose (MEDD) None Opioid Risk Tool (ORT): Total Score 8 (01/02/19 1337) (0 to 3 = Low risk: 6% [...] General Anxiety Disorder (MAGDALENO-7): Total Score 6 (01/02/191335) (8-9 = consistent with Generalized anxiety disorder, >15 = severe) The following information was obtained from https://Sharingforce.World Business Lendersaware.net/login on 01/01/19. The following information was obtained from https://secureBioformix.Ratify.gov/myAccess/saw/select .do on 01/01/19. [facility] was checked on 01/01/19 and no medications have been dispensed in the last 3 months. Tdocumented in this encounter Plan of Treatment Not on filedocumented as of this encounter Visit Diagnoses Not on filedocumented in this encounter"
--- OUTSIDE RECORDS SUMMARY | ~2020-07-14 | XMS | Encounter Summary ---
Demographics + + + | Address | [address] | | | [place] [address] | + + + | Home Phone [...] | [facility] [...] [place] | | | | | [address] | | + + + + + | Mao Rea | ECON | Unknown | | + + + + + | Meredith Rea | ECON | Unknown | | + + + + + Care Team Providers + +------+ + | Care Wire Temperer Name | Role | Phone | + +------+ + | Sherie Vela PA-C | [place] | | + +------+ + Encounter Details +--------+ + + + + | Date | Type | Department | Care Team | Description | +--------+ + + + + | 08/09/ | Hospital | [facility] | Pedro Riggins | S/P lumbar fusion | | 2017 | Encounter | MED CTR XRAY [address] | D, PA-C [address] | | | | | [place] | [address] | | | | | [place] [address] | [place], [place] | | | | | [phone] | [address] | | | | | [...]
--- OUTSIDE RECORDS SUMMARY | ~2020-07-14 | XMS | Encounter Summary ---
Demographics + + + | Address | [address] | | | [place] [address] | + + + | Home Phone [...] | Author | [facility] | | | and [place] [...] [place], [place] | | | | | [address] | | + + + + + | Mao Rea | ECON | Unknown | | + + + + + | Meredith Rea | ECON | Unknown | | + + + + + Care Team Providers + +------+ + | Care Orthotic/Prosthetic Clinician Name | Role | Phone | + +------+ + | Brandon Juarez MD | PCP | | + +------+ + Reason for Visit + +--------+ + | Reason | Onset | Comments | | | Date | | + +--------+ + | Medication Refill | 03/23/ | oxyCODONE 10 MG TABS | | | 2016 | | + +--------+ + Encounter Details +--------+ + + + + | Date | Type | Department | Care Team | Description | +--------+ + + + + | 03/23/ | Telephone | [facility] [place] | Koby George MD | Medication Refill | | 2016 | | NEUROSURGERY [address] | [address] | (oxyCODONE 10 MG | | | | [address] | [place] [address] | TABS ) | | | | [place] | [phone] | | | | | [address] | | | | | | [phone] | | | +--------+ + + + [...] Telephone Encounter - Jaquelin Mars RN - 03/23/2017 1:54 PM PDTNotified patient's spou se, Henny Rea, Rx approved. Henny requested that Rx be held at front end web developer and she will p ick it up rather than chance the mail not getting there over holiday weekend. Reminded of o ffice hours. elephone Encounter - Ender Mora PA-C - 03/23/2017 1:14 PM PDTapprovedElectronically sign ed by Ender Mora PA-C at 03/23/2017 1:15 PM PDTTelephone Encounter - Rudolph Mars RN - 03/23/2017 8:53 AM PDTMedication Refill Request Procedure: L5-S1 Transforaminal Lumbar Interbody Fusion, Hardware Revision @ L2-3, L3-4, L 4-5 Date of Surgery: 02/23/2017 Date of Next Office Visit: 04/05/2017 Medication requested: Oxycodone 10 mg Do you have a pain contract with any providers: No- Contract on hold with pain clinic in [place] Are you receiving pain medication prescriptions from any other providers: No Current intake: 2 tablets every 4 hours; sometimes goes 5-6 hours at night Date of last refill: 03/15/2017 # of tabs left/or when will patient run out of this medication: 6 days left Where is pain located? Type of pain (constant, intermittent, sharp, dull)? : Left hip and knee pain is worse than back surgical pain now Send in the mail or call in to preferred pharmacy? [facility] (may decide to come pickling machine operator depending on when approved) Please approve/ deny Rx. elephone Encounter - Juarez Butler - 03/23/2017 8:12 AM PDTPatient's Henny is calling for a refill of: oxyCODONE 10 MG TABS. Patient and are aware that this has to be mailed. I verified the patient's mailing address in [place]. Please contact the patient when approved at (home) . Thank you. Tdocumented in this encounter Plan of Treatment Not on filedocumented as of this encounter Visit Diagnoses Not on filedocumented in this encounter"
--- OUTSIDE RECORDS SUMMARY | ~2020-07-14 | XMS | Encounter Summary ---
Demographics + + + | Address | [address] | | | [place] [address] | + + + | Home Phone [...] | Author | [facility] | | | and [...] [place], [place] | | | | | [address] | | + + + + + | Mao Rea | ECON | Unknown | | + + + + + | Meredith Rea | ECON | Unknown | | + + + + + Care Team Providers + +------+ + | Care Fashion Show Director Name | Role | Phone | + +------+ + | Brandon Juarez MD | PCP | | + +------+ + Reason for Visit +---------+--------+ + | Reason | Onset | Comments | | | Date | | +---------+--------+ + | Results | 06/28/ | | | | 2015 | | +---------+--------+ + Encounter Details +--------+ + + + + | Date | Type | Department | Care Team | Description | +--------+ + + + + | 06/28/ | Telephone | [facility] | Logan Soto, | Results | | 2015 | | PHYSIATRY [address] | MD [address] | | | | | [address] | [place] | | | | | [place] | [id number] | | | | | [address] | | | | | | [phone] | | | +--------+ + + + [...] this encounter Miscellaneous Notes Telephone Encounter - Petra Prater RN - 06/28/2016 9:48 AM PDTPatient called and give n results. elephone Encounter - Petra Prater RN - 06/28/2016 9:47 AM PDTFelicia, Please let Uzielnolan Rea know that his lab tests demonstrate normal kidney function. I would like to move forward with lumbar MRI as planned. Thank you, Logan Soto MD () elephone Encounter - Petra Prater RN - 06/28/2016 9:47 AM PDT----- Message fro m Logan Soto MD sent at 06/23/2016 15:01 PDT ----- Petra, Please let Uzielnolan Rea know that I have reviewed his lumbar MRI. There are no emergen t findings. There is persisting narrowing of where his nerves travel. I will review the im aging with him at his next appointment. Thank you, Logan Soto MD () ----- Message ----- From: Rad Results In Alexis Sent: 06/23/2016 14:02 To: Logan Soto MD documented in this e ncounter Plan of Treatment Not on filedocumented as of this encounter Visit Diagnoses Not on filedocumented in this encounter"
--- OUTSIDE RECORDS SUMMARY | ~2020-07-14 | XMS | Encounter Summary ---
Demographics + + + | Address | [address] | | | [place] [address] | + + + | Home Phone [...] + + + | Author | [facility] | | | and [place] | + + + | Organization | [facility] | | [...] [place] | | | | | [address] | | + + + + + | Mao Rea | ECON | Unknown | | + + + + + | Meredith Rea | ECON | Unknown | | + + + + + Care Team Providers + +------+ + | Care Records Management Specialist Name | Role | Phone | [...] [place] | | | | | | [address] | [address] Phone: | | | | | | Phone: | [phone] | | | | | | [phone] | Fax: | | | | | | Fax: | [phone] | | | | | | [phone] | | +--------+ + + + + + Encounter Details +--------+---------+ + + + | Date | Type | Department | Care Team | Description | +--------+---------+ + + + | 05/07/ | Office | 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 The patient will be refe rred to [facility] neurology for transfer of neurological care. Return [...] seen by any other providers? YES Provider: [facility] orthopedic doctor, Sherie FERNANDES, Speech and occupational [...] is being followed by Dr. Everett at [facility] orthopedics. The patient states that he feels more stiff in the morning. But this is attributed more to his arthritic condition including his lower back pain issues. REVIEWED SLEEP AND NEUROLOGY HISTORY: PCP: Dr. Dane Motley a 73 y.o.RHD malewith history of major depression treated chronica lly with atypical antipsychotics and lithium, chronic immunomodulation for RA, LEANDRO, COPD, wh o was referred to me by DOM Dennis-Cfor evaluation of Parkinson's disease. I also [facility]the [facility] for LEANDRO and RBD. 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 Degenerative disc [...] Comments - - - - Resp - Weight 228 lbs 3 oz 229 lbs [...] is oriented to person, place, and time. Awuwot-itwl-kqbkqc test: mild bila teral tremor. Neurologic Exam [...] the right. Mild shuffling, no festination.) Coordination Baylvc-cqxh-uhsrfr test: mild bilateral tremor. Tremor Resting tremor: [...] Dysability: 0 34. Dyskinesia Pain: 0 35. Link And Link Knitting Machine Operator Dystonia: 1 36. Predictable Off Periods: 1 37. Unpredictable Off Periods: 0 38. Sudden Off Periods: 0 39. % Waking Day Off: 2 40. Anorexia,Nausea,Emesis: 1 41. Sleep Disturbances: 1 42. Symptomatic Orthostasis: 1 PAST MEDICAL HISTORY Past Medical History: Diagnosis Date Actinic keratosis Anxiety Arthritis rheumatoid Asthma, exercise induced Cancer ([facility]) 2003 colon cancer Chronic major depressive disorder, [...]
--- OUTSIDE RECORDS SUMMARY | ~2020-07-14 | XMS | Encounter Summary ---
Demographics + + + | Address | [address] | | | [place] [address] | + + + | Home Phone [...] + + + | Author | [facility] | | | and [place] | + + + | Organization | [facility] | | [...] [place] | | | | | [address] | | + + + + + | Mao Rea | ECON | Unknown | | + + + + + | Meredith Rea | ECON | Unknown | | + + + + + Care Team Providers + +------+ + | Care Orchard Manager Name | Role | Phone | + +------+ + | Sherie Vela PA-C | PCP | | + +------+ + Reason for Visit + +--------+ + | Reason | Onset | Comments | | | Date | | + +--------+ + | Imaging Only | 01/04/ | MRI scheduled 01/11 | | | 2018 | | + +--------+ + Encounter Details +--------+ + + + + | Date | Type | Department | Care Team | Description | +--------+ + + + + | 01/04/ | Telephone | [facility] [place] | Koby George MD | Imaging Only (MRI | | 2018 | | NEUROSURGERY [address] | [address] | scheduled 01/11) | | | | [address] | [place] [address] | | | | | [place] | [phone] | | | | | [address] | | | | | | [phone] | | | +--------+ + + + [...] this encounter Miscellaneous Notes Telephone Encounter - Bibi Rose CMA - 01/18/2019 9:39 AM PDTInformation relayed. Tracy stevens voiced understanding and would like to follow up with Dr Jiménez to discuss conservati ve treatment options. Patient will call us if and when he decides he would like to discuss t his with a surgeon. Routing message to Physiatry to contact patient for scheduling. elephone Encounter - Ender [place] PA-C - 01/18/2019 9:09 AM PDTThe patient's MRI shows some progression of the stenosis at the level above his lumbar fusion (L1-2). I would recommend that he continue working with physiatry and pain medicine on conservative care. As the patient may be aware, will be leaving the area and joining a practice at [facility]. If he would like to follow up with him once he es tablishes at practice that would be a appropriate. If the patient would like us to refer jennifer lewis to a spine surgeon in our area I would be happy to assist him as well. Initially however I would recommend intensifying of conservative care before considering a revision surgery on his lumbar spine. In addition, at our last appointment we discussed the possibility of a new bone growth stim ulator. We have already utilized to bone growth stimulators and have had some bone growth a t the L5-S1 segment. I would be happy to prescribe a new bone growth stimulator however thi s may not be covered by insurance. It is difficult to know whether there would be any addit ional benefit in using a third bone growth stimulator at this time. elephone Encounter - Bibi Rose CMA - 01/11/2019 3:20 PM PDTMRI on isite. Please advise. elephone Encounter - Regi Medina - 01/11/2019 2:32 PM PDTBettmarie called in to let us know that Uziel completed his MRI today. elephone Encounter - Michelle Eduardo - 0 01/04/2019 10:28 AM PSTWife called to let us know that the MRI is scheduled for 01/11 at [facility]. I asked that she also call us once it is complete; she agreed. documented in this encounter Plan of Treatment Not on filedocumented as of this encounter Visit Diagnoses Not on filedocumented in this encounter"
--- OUTSIDE RECORDS SUMMARY | ~2020-07-14 | XMS | Encounter Summary ---
Demographics + + + | Address | [address] | | | [place] [address] | + + + | Home Phone [...] | Author | [facility] | | | and [...] [place] | | | | | [address] | | + + + + + | Mao Rea | ECON | Unknown | | + + + + + | Meredith Rea | ECON | Unknown | | + + + + + Care Team Providers + +------+ + | Care Can Piler Name | Role | Phone | + [...] | Lumbar | [place], | [address] | | | | | radiculopath | Luis Carlos Lerner MD | [place], | | | | | y | [address] | [place] | | | | | Procedures | [place] | [address] | | | | | [place] INJECT | [facility], [place] | Phone: | | | | | ANES/STEROID | [address] | [phone] | | | | | [place] | Phone: | Fax: | | | | | LUMBAR/SACRA | [phone] | [phone] | | | | | L [address] IMG | Fax: | | | | | | GUIDE ,1 | [phone] | | | | | | [place]EL [place] | | | | | | | TRIAMCINOLON | | | | | | | E ACET INJ | | | | | | | NOS, 10 MG | | | | | | | Appt:3/5 | | | | | | | [...] + + | 01/02/ | Hospital | [facility] | Luis Carlos Jiménez | Lumbar radiculopathy | | 2018 | Encounter | MED CTR XRAY [address] | T, [address] | | | | | [place] | [place], [place] | | | | | [place] [address] | [address] | | | | | [phone] | | | | | | | Patient Intake Coordinator, [facility] | | | | | | [place] [...] 07/14/20 | | | (VITAMIN C WITH OTM | Daily. | | | 12 | [...] iohexol (OMNIPAQUE 300) 300 | Given | 01/03/20 | 4 mLs | | | | mg/mL injection 4 mL 4 mL, | | 18 5:25 | | | | | Other, ONCE, Tue01/02/18 at 1745, | | PM PST | | | | | For 1 dose | | | | | | + +-------+ +-------+---+---+ +---+---+ | | | +---+---+ + +-------+ +-------+---+---+ | lidocaine (PF) 1% injection 2 | Given | 01/03/20 | 2 mLs | | | | mL 2 mL, Other, ONCE, Tue01/02/18 | | 18 5:30 | | | [...]
--- OUTSIDE RECORDS SUMMARY | ~2020-07-14 | XMS | Encounter Summary ---
Demographics + + + | Address | [address] | | | [place] [address] | + + + | Home Phone [...] [facility] | | | and [place] [...] [place] | | | | | [address] | | + + + + + | Mao Rea | ECON | Unknown | | + + + + + | Meredith Rea | ECON | Unknown | | + + + + + Care Team Providers + +------+ + | Care Surveillance Technician Name | Role | Phone | + +------+ + | Sherie Vela PA-C | PCP | | + +------+ + Reason for Visit + +--------+ + | Reason | Onset | Comments | | | Date | | + +--------+ + | Appointment | 04/04/ | | | | 2017 | | + +--------+ + Encounter Details +--------+ + + + + | Date | Type | Department | Care Team | Description | +--------+ + + + + | 04/04/ | Telephone | [facility] [place] | Koby George MD | Appointment | | 2017 | | NEUROSURGERY [address] | [address] | | | | | [facility] [address] | [place] [address] | | | | | [place] | [phone] | | | | | [address] | | | | | | [phone] | | | +--------+ + + + [...] Notes Telephone Encounter - Andre Mars - 2018 4:15 PM PDTSpoke with who confirmed new appt day and time documen david in this encounter Plan of Treatment Not on filedocumented as of this encounter Visit Diagnoses Not on filedocumented in this encounter"
--- OUTSIDE RECORDS SUMMARY | ~2020-07-14 | XMS | Encounter Summary ---
Demographics + + + | Address | [address] | | | [place] [address] | + + + | Home Phone [...] Author | [facility] | | | and [place] [...] [place] | | | | | [address] | | + + + + + | Mao Rea | ECON | Unknown | | + + + + + | Meredith Rea | ECON | Unknown | | + + + + + Care Team Providers + +------+ + | Care Record Press Tender Name | Role | Phone | + +------+ + | Sherie Vela PA-C | ENA | | + +------+ + Encounter Details +--------+ + + + + | Date | Type | Department | Care Team | Description | +--------+ + + + + | 05/24/ | Hospital | [facility] | Ender Mora | S/P lumbar fusion; | | 2016 | Encounter | MED CTR XRAY [address] | [address] | Lumbar | | | | [place] | [address] [place] | radiculopathy; | | | | [place] [address] | [phone] | Foraminal stenosis | | | | [phone] | | of lumbar region; | | [...] | | | gastrointestinal tract within the qjbrw-gq-ghkb is unremarkable. | | | IMPRESSION - [...] | | the gastrointestinal tract within the ykbak-fw-vscy is unremarkable. | | | | IMPRESSION [...]
--- OUTSIDE RECORDS SUMMARY | ~2020-07-14 | XMS | Encounter Summary ---
Demographics + + + | Address | [address] | | | [place] [address] | + + + | Home Phone | | + + + | Preferred Language | Unknown | + + + | Marital Status | | + + + | Hindu Affiliation | Unknown | + + + | Race | White | + + + | Ethnic Group | Not or | + + + Author + + + | Author | [facility] | | | and [place] | + + + | Organization | [facility] | | | [...] [place] | | | | | [address] | | + + + + + | Mao Rea | ECON | Unknown | | + + + + + | Meredith Rea | ECON | Unknown | | + + + + + Care Team Providers + +------+ + | Care Demonstrator [employer] Name | Role | Phone | + +------+ + | Sherie Vela PA-C | PCP | | + +------+ + Reason for Visit + +--------+ + | Reason | Onset | Comments | | | Date | | + +--------+ + | Sleep Medicine | 07/14/ | | | Appointment | 2018 | | + +--------+ + Encounter Details +--------+ + + + + | Date | Type | Department | Care Team | Description | +--------+ + + + + | 07/14/ | Telephone | [facility] | Jarvis Dawson, | Sleep Medicine | | 2017 | | NEUROLOGY [place] | [address] | Appointment | | | | [address] , | [place] [address] | | | | | [address] [place] | [place] | | | | | [place] [address] | [id number] | | | | | [phone] | | | +--------+ + + + [...] Telephone Encounter - Palma Silva RN - 07/14/2018 9:[address] Dawson's m ost recent chart note to [facility] Sleep lab. elephone Encounter - Palma Silva RN - 07/14/2018 9:14 AM PDT----- Message from Jarvis Dawson MD sent at 07/12/2018 15:27 PDT ----- Send my office note to [facility] sleep lab. Electronically signed by Palma Silva RN at 0 07/14/2018 9:14 AM PDTdocumented in this encounter Plan of Treatment Not on filedocumented as of this encounter Visit Diagnoses Not on filedocumented in this encounter"
--- OUTSIDE RECORDS SUMMARY | ~2020-07-14 | XMS | Encounter Summary ---
Demographics + + + | Address | [address] | | | [place] [address] | + + + | Home Phone [...] | Author | [facility] | | | and [...] [place], [place] | | | | | [address] | | + + + + + | Mao Rea | ECON | Unknown | | + + + + + | Meredith Rea | ECON | Unknown | | + + + + + Care Team Providers + +------+ + | Care Deputy Brand Inspector Name | Role | Phone | [...] | Radiology | Diagnoses | Soto, | Ws Mri | | | | | Lumbar | Logan Rios MD | [address] | | | | | radiculopath | [address] | [place], | | | | | y Left leg | [address] | [place] | | | | | pain Left | [place], | [address] | | | | | leg weakness | [place] [address] | Phone: | | | | | Numbness | Phone: | [phone] | | | | | of left foot | [phone] | Fax: | | | | | History of | Fax: | [phone] | | | | | lumbar | [phone] | | | | | | fusion [...] | Logan Rios MD | [address] | | | | | radiculopath | [address] | [place], | | | | | y Left leg | [address] | [place] | | | | | pain Left | [place], | [address] | | | | | leg weakness | [place] [address] | Phone: | | | | | Numbness | Phone: | [phone] | | | | | of left foot | [phone] | Fax: | | | | | History of | Fax: | [phone] | | | | | lumbar | [phone] | | | | | | fusion [...] + + | 06/23/ | Hospital | [facility] | Logan Soto, | Lumbar | | 2016 | Encounter | [facility] MRI [address] | MD [address] | radiculopathy; Left | | | | [address] [place], | [place], [place] | leg pain; Left leg | | | | [place] [address] | [address] | weakness; Numbness | | | | [phone] | | of left foot; | | [...] with pain, numbness, weakness in left | Gokul VASQUEZ | | L5-S1 radicular pattern. COMPARISON: MRI lumbar spine 06/26/2014 | [facility] | | and lumbar spine x-ray [...] + + | Performing | Address | City/State/[facility] | Phone Number | | Organization | | | | + + + + + | [address] | [address] | [place] | [phone] | | [facility] | | [phone] | | | - IMAGING | | [...]
--- OUTSIDE RECORDS SUMMARY | ~2020-07-14 | XMS | Encounter Summary ---
Demographics + + + | Address | [address] | | | [place] [address] | + + + | Home Phone [...] + | Author | [facility] | [...] [place] | | | | | [address] | | + + + + + | Mao Rea | ECON | Unknown | | + + + + + | Meredith Rea | ECON | Unknown | | + + + + + Care Team Providers + +------+ + | Care Hardener Helper Name | Role | Phone | [...] Closed | | Neurology | Diagnoses | Dane, | Samir, | | | | | Parkinsons | VIRY Rehman | Jarvis Qiu MD | | | | | ([facility]) | [address] | | | | | | [address] | [address] | | | | | | [address] | [place] [address] | | | | | | [place], | [address] | | | | | | [place] [address] | [place] | | | | | | Phone: | [phone] Phone: | | | | | | [phone] | [phone] | | | | | | Fax: | Fax: | | | | | | [phone] | [phone] | +--------+--------+ + + + + Encounter Details +--------+---------+ + + + | Date | Type | Department | Care Team | Description | +--------+---------+ + + + | 07/12/ | Office | [facility] | Jarvis Dawson, | Probable idiopathic | | 2018 | Visit | [facility] | [facility] | Parkinson's disease | | | | [address], | [place] [address] | ([facility]),symptoms | | | | [address] [place] | [place] | worsened with | | | | [place] [address] | [address] | antipsychotic | | | | [phone] | | medicines (Primary | | | | | | Dx); Parkinsonian | | | | | | tremor ([facility]); | | | | | | Obstructive [...] of your body. Also, your symptoms may change room attendant time. And you may have different symptoms [...] may also feel depressed. Date Last Reviewed: 12/01/201719994710-5770 [employer] [address] [place] [address]. All righ ts reserved. This information is not intended as a substitute for professional medical care. Always follow your healthcare professional's instructions. You may find more information about Parkinson disease and it's related diseases at the [facility] on the web. Electronically signed by Jarvis Dawson MD at 2017 3:23 PM PDT documented in this encounter H&P Notes Jarvis Dawson MD - 07/12/2018 1:45 PM PDTFormatting of this note might be different fr om the original. [facility] NEUROLOGY CONSULTATION Primary Care Physician: Sherie Vela PATIENT NAME: Uziel Rea : 1945 TODAY'S DATE: 07/12/2018 ASSESSMENT & PLAN: 1. 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 Parkinsonian tremor (HCC) 3. Obstructive sleep apnea of adult 4. REM sleep behavior disorder 5. Mild cognitive impairment UPDRS Total Score: 65 Louise/Yahr: Stage 3 Dima/Holabird PD: 90% Dima/Holabird Dyskinesia: 100% SUMMARY: The patient is a 73 year old man with history of major depression treated chronically with atypical antipsychotics and lithium who is presenting with progressive tremor dominant Parki nsonism with onset about 5 years ago. The tremor is asymmetric worse on the right side. Jose SPECT scan performed recently shows mild symmetric presynaptic dopaminergic deficit. The ays mmetric motor symptoms and reduced presynaptic dopamine transport signal on JOSE scan is cons istent with Parkinson disease rather than pure drug induced Parkinsonism. However, the parki nsonian symptoms may be enhanced by chronic used of atypical antipsychotics. Treatment is challenging in light of history of difficult to treat depression/?bipolar diso rder that has responded well to cariprazine. Carbidop/levodopa may worsen psychiatric sympto ms if there is history of pschosis. The patient also has mild cognitive impairment involving multiple areas including visuospat ial cognitive function, language, concentration, and delayed recall. Lewy body dementia is s uspected, although medications like atypical antipsychotics may contribute. If not already p erformed, vitamin B12, folate, and TSH levels be performed to rule out for reversible causes . LEANDRO may be also contributing to reduced cognitive abilities. But, CPAP therapy had been a difficult challenge for him. He is in the porcess of scheduling with [facility] sleep lab for CPAP desensitization then CPAP titration study. It is suggested that cariprazine be switched to quatiatpine since quatiapine has much lowe r extra-pyramidal adverse effect profile. Deep brain stimulator treatment option was discussed. But, the patient is not a candidate a t this time due uncertainty in how much drug induced parkinsonism contribute to his symptoms , his cognitive impairment and psychiatric disorder status. For the RBD, I suggested trying melatonin again at a lower dose of 5mg (10mg caused excessi ve drowsiness in the morning) which may be increased by 1mg as tolerated to an effective dos e. All of the above were discussed in detail and counseling was provided. Return in about 6 months (around 01/09/2019) for Parkinson follow up. I spent at least 80 minutes face to face with the patient, with over 50% spent in counselin g and/or coordination of care regarding above specified issues. CHIEF COMPLAINT: Parkinson's Disease (consultation and evaluation) HPI Uziel Rea is a 73 y.o. RHD male with history of major depression treated chronically with atypical antipsychotics and lithium, chronic immunomodulation for RA, LEANDRO, COPD, who w as referred to me by Sherie Vela PA-C for evaluation of Parkinson's disease. I also foll ow the patient at [facility] sleep clinic for LEANDRO and RBD. The patient is accompanied by . The history is provided by patient and his Medical records reviewed: my [facility] sleep clinic note and Ms. Vela office note. 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 Jaw tremor was noted abou t 2 years later. This has gradually worsen. Rest tremor began about 1.5 years ago. He began to have balance difficulty especially in the morning after waking. No anosmia. Has dream enactment and PSG at [facility] in [place] showed REM without atonia. Fell out of bed 2 nights ago while trying reach for the side table and over reached and los t balance. He feels stiff in his body. He has difficulty rolling over in bed due to stiffnes s in his lower back. His hand writing has changed with smaller letters and tremor per his wi fe. Memory has been getting worse recently after cellcept on top of leflunomide (this dose is b eing reduced after cellcept started). He was diagnosed with severe depression and PTSD more than 20 years ago. This is well contr olled at this time. No history of manic attack. Treatment for tremor tried: 1. Carbidopa/levodopa (unknown dose) for [address] Swanson 4 years ago, without benefit. 2. Propranolol 160mg - no benefit 3. Gabapentin reducing dose - no benefit Has chronic lower back pain and planning on 3rd lumbar spine surgery by Dr. George. Not driving due to lower back pain and needing oxycodone. UPDRS Results Intellectual Impairment: 2 Thought Disorder: 1 Depression: 0 Motivation: 3 ADL section: Speech: 1 Salivation: 0 Swallowin Handwritin Cutting Food/Utensil Use: 1 Dressin Hygiene: 0 Turning in Bed: 2 Fallin Freezing with Walkin Walkin Handwritin Sensory Complaints: 0 NEUROLOGY and Pertinent PROBLEM LIST: 1. Tremor dominant Parkinsonism with [...] lumbar spine surgeries (followed by Dr. George) PAST MEDICAL HISTORY Past Medical History: Diagnosis [...] is focused on other topics PAST SURGICAL HISTORY Past Surgical History: Procedure Laterality Date COLECTOMY 2003 18" EYE MUSCLE SURGERY eye muscle correction HERNIA REPAIR 2011 umbilical hernia HERNIA REPAIR Right 2004 Groin hernia KIDNEY STONE SURGERY 1988 KNEE SURGERY Bilateral 1980 Knee arthroscopy LUMBAR LAMINECTOMY Posterior 02/23/2017 Procedure: L5-S1 Transforaminal Lumbar Interbody Fusion, Hardware Revision @ L2-3, L3-4, L 4-5; Surgeon: Koby George MD; Location: [facility] MAIN OR LUMBAR SPINE SURGERY 12/02/2014 L2-3, L3-4, L4-5 LAIF, L2-3, L3-4, L4-5 Posterior Instrumentation, L2-3 Decompression; La terality: N/A; Surgeon: Koby George MD; Location: [facility] MAIN OR PROSTATE SURGERY 2003 prostate trim SHOULDER SURGERY 1979 shoulder arthroscopic SINUS SURGERY 1989 TONSILLECTOMY TOOTH EXTRACTION 05/2014 CURRENT MEDICATIONS Current Outpatient Prescriptions Medication Sig Dispense Refill [...] by mouth every morning (before nereida kfast). levothyroxine (SYNTHROID, LEVOTHROID) 75 MCG tablet Take [...] 500 mg by mouth 2 times daily. [place]-3 Fatty Acids (FISH OIL) 1200 MG CAPS [...] times daily. terbinafine (LAMISIL) 250 MG tablet No current facility-administered medications for this visit. ALLERGIES No Known Allergies FAMILY HISTORY family history includes Arthritis in his son; Depression in his mother; Early (age of onset: 36) in his mother; Heart attack (age of onset: 68) in his father; Heart disease in h is father; Mental illness in his mother; Pacemaker in his father; Substance abuse in his fat her and mother; Suicide (age of onset: 36) in his mother. SOCIAL HISTORY The pt reports that he quit smoking about 37 years ago. His smoking use included Cigarette s. He started smoking about 60 years ago. He has a 46.00 pack-year smoking history. He has n ever used smokeless tobacco. He reports that he uses drugs, including Marijuana, about 14 ti mes per week. He reports that he does not drink alcohol. REVIEW OF SYSTEMS Review of Systems Constitutional: Positive for weight gain of 20 pounds. HENT: Positive for hearing loss. Eyes: Positive for eye glasses/contacts. Respiratory: Positive for snoring. Cardiovascular: Negative. Gastrointestinal: Negative. Genitourinary: Negative. Musculoskeletal: Positive for back surgeries. Positive for Rheumatoid arthritis. Skin: Negative. Neurological: Positive for tremors. Endo/Heme/Allergies: Positive for thyroid disease. Positive for osteopenia. Psychiatric/Behavioral: Positive for depression. PHYSICAL EXAM Vitals with Comments 02/28/2018 03/24/2018 03/24/2018 07/12/2018 SYSTOLIC 129 136 141 130 DIASTOLIC 77 77 82 70 Pulse 61 - - 65 Temp - - - 98.1 Temp Comments - - - - Resp 20 - - - Weight 225 lbs - - 225 lbs Height 5' 8" - - 5' 8" SPO2 - - - 96 BMI 34.3 kg/m2 - - 34.3 kg/m2 Pain Score 6 - - - Pain Score - - - - Pain Loc Back - - - Pain Edu? - - - - Physical Exam Constitutional: He is oriented to person, place, and time. Eyes: Pupils are equal, round, and reactive to light. EOM are normal. Neurological: He is oriented to person, place, and time. He has normal strength. He has a n ormal Romberg Test. Wyrwqs-uiqe-pxqzjc test: mild bilateral tremor. Reflex Scores: Tricep reflexes are 1+ on the right side and 1+ on the left side. Bicep reflexes are 1+ on the right side and 1+ on the left side. Brachioradialis reflexes are 1+ on the right side and 1+ on the left side. Patellar reflexes are 2+ on the right side and 2+ on the left side. Achilles reflexes are 1+ on the right side and 1+ on the left side. Neurologic Exam Mental Status Oriented to person, place, and time. Attention: normal. Speech: (Mild hypophonia) Level of consciousness: alert Knowledge: good and consistent with education. Normal comprehension. MoCA V7.1: UPDRS: 65 Cranial Nerves CN II Visual bang full to confrontation. CN III, IV, Pupils are equal, round, and reactive to light. Extraocular motions are normal. CN V Facial sensation intact. CN VII Facial expression full, symmetric. CN VIII CN VIII normal. Hearing: intact CN IX, X CN IX normal. CN X normal. Palate: symmetric CN XI CN XI normal. Right sternocleidomastoid strength: normal Left sternocleidomastoid strength: normal Right trapezius strength: normal Left trapezius strength: normal CN XII CN XII normal. Tongue: not atrophic Fasciculations: absent Tongue deviation: none Motor Exam Muscle bulk: normal Right arm tone: increased (mild) Left arm tone: increased (moderate) Right arm pronator drift: absent Left arm pronator drift: absent Right leg tone: increased Left leg tone: increased (mild bilateral) Strength Strength 5/5 throughout. Sensory Exam Light touch normal. Right leg vibration: decreased from toes Left leg vibration: decreased from toes (absent at the toes bilateral) Right leg proprioception: normal Left leg proprioception: normal Right leg pinprick: decreased from knee Left leg pinprick: decreased from knee Gait, Coordination, and Reflexes Gait Gait: (slow, enhanced tremor of hand worse on the right. No shuffling. ) Coordination Romberg: negative Jtcipp-aaep-rsotgr test: mild bilateral tremor. Tremor Resting tremor: present (intermittent mild to moderate amplitude, moderate frequency, worse on the right) Intention tremor: present (mild bilateral) Reflexes Right brachioradialis: 1+ Left brachioradialis: 1+ Right biceps: 1+ Left biceps: 1+ Right triceps: 1+ Left triceps: 1+ Right patellar: 2+ Left patellar: 2+ Right achilles: 1+ Left achilles: 1+ Right plantar: normal Left plantar: normalDTRs with Jendrassik maneuver Pull test: falls if not caught. SPECIAL MOTOR EXAM: 07/12/2018 02:52PM Speech: 1 Facial Expression: 2 Tremor at Rest: Face: 3 Tremor at Rest: Right Hand: 3 Tremor at Rest: Left Hand: 2 Tremor at Rest: Right Foot: 0 Tremor at Rest: Left Foot: 0 Hand Action Tremor: Right: 2 Hand Action Tremor: Left: 2 Rigidity: Neck: 2 Rigidity: Right Arm: 2 Rigidity: Left Arm: 1 Rigidity: Right Le Rigidity: Left Le Finger Taps: Right: 2 Finger Taps: Left: 1 Hand Movements: Right: 2 Hand Movements: Left: 2 Rapid Alt. Mvmt: Right: 3 Rapid Alt. Mvmt: Left: 2 Leg Agility: Right: 1 Leg Agility: Left: 1 Arising From Chair: 0 Posture: 1 Gait: 1 Postural Stability: 2 Body Bradykinesia: 2 Total Score: 2 Dyskinesia Duration: 0 Dyskinesia Dysability: 0 Dyskinesia Pain: 0 Aba Therapist Dystonia: 1 Predictable Off Periods: 0 Unpredictable Off Periods: 0 Sudden Off Periods: 0% Waking Day Off: 0 Anorexia,Nausea,Emesis: 1 Sleep Disturbances: 0 Symptomatic Orthostasis: 0 Diagnostic Studies: Laboratory studies and imaging were personally reviewed by me. Chemistry: Lab Results Component Value Date NA 141 02/18/2017 K 4.0 02/18/2017 CO2 26 02/18/2017 BUN 10 02/18/2017 CREA 0.75 02/18/2017 GLU 107 02/18/2017 Hematology: Lab Results Component Value Date HGB 13.9 02/18/2017 HCT 42.1 02/18/2017 WBC 8.0 02/18/2017 Electronically Signed by: Jarvis Dawson MD, 07/12/2018 22:20 documented in this e ncounter Plan of [...]
--- OUTSIDE RECORDS SUMMARY | ~2020-07-14 | XMS | Encounter Summary ---
Demographics + + + | Address | [address] | | | [place] [address] | + + + | Home Phone [...] + | Author | [facility] [...] [place] | | | | | [address] | | + + + + + | Mao Rea | ECON | Unknown | | + + + + + | Meredith Rea | ECON | Unknown | | + + + + + Care Team Providers + +------+ + | Care Radiology Ct Technologist Name | Role | Phone | + +------+ + | Sherie Vela PA-C | PCP | | + +------+ + Reason for Visit + +--------+ + | Reason | Onset | Comments | | | Date | | + +--------+ + | Request For Medical | 07/12/ | | | Records | 2018 | | + +--------+ + Encounter Details +--------+ + + + + | Date | Type | Department | Care Team | Description | +--------+ + + + + | 07/12/ | Telephone | [facility] | Jarvis Dawson, | Request For Medical | | 2017 | | NEUROLOGY [place] | [address] | Records | | | | [address] [facility], | [place] [address] | | | | | [address] [place] | [place] | | | | | [place] [address] | [id number] | | | | | [phone] | | | +--------+ + + + [...] this encounter Miscellaneous Notes Telephone Encounter - Mariely Lacy - 08/03/2018 3:13 PM PDTRequested last 6 month o f lab results from [facility] 3 :13 PM PDTTelephone Encounter - Palma Silva RN - 07/12/2018 4:21 PM PDTPSR: Terri wagner for medical records. Electronically signed by: Palma Silva RN 07/12/2018 16:21 ----- Message from Jarvis Dawson MD sent at 07/12/2018 15:26 PDT ----- Send for last 6 months lab results from [facility] in [place], [place] documented in is encounter Plan of Treatment Not on filedocumented as of this encounter Visit Diagnoses Not on filedocumented in this encounter"
--- OUTSIDE RECORDS SUMMARY | ~2020-07-14 | XMS | Encounter Summary ---
Demographics + + + | Address | [address] | | | [place] [address] | + + + | Home Phone [...] | [facility] | [...] [place] | | | | | [address] | | + + + + + | Mao Rea | ECON | Unknown | | + + + + + | Meredith Rea | ECON | Unknown | | + + + + + Care Team Providers + +------+ + | Care City Tax Auditor Name | Role | Phone | + +------+ + | Sherie Vela PA-C | PCP | | + +------+ + Reason for Visit + +--------+ + | Reason | Onset | Comments | | | Date | | + +--------+ + | Medication | 03/16/ | | | Management | 2019 | | + +--------+ + Encounter Details +--------+ + + + + | Date | Type | Department | Care Team | Description | +--------+ + + + + | 03/16/ | Telephone | [facility] | Jarvis Dawson, | Medication | | 2018 | | NEUROLOGY [place] | [address] | Management | | | | [address] [facility], | [facility] [address] | | | | | [address] [place] | [place] | | | | | [place] [address] | [id number] | | | | | [phone] | | | +--------+ + + + [...] encounter Miscellaneous Notes Telephone Encounter - Milena Oro, Roller Bearing Inspector - 03/19/2019 9:25 AM PDTCall and spoke with Uziel Inman's and let her know that a new prescription has been printed and sent to the pharmacy in [place]. She will get it picked up for Uziel to start.Electronical ly signed by Milena Oro, Roller Bearing Inspector at 03/19/2019 9:27 AM PDTTelephone Jarvis Zapata MD - 03/16/2019 12:02 PM PDTIncrease carbidopa/levodopa 25/100 to 1.5 tabs 3 times a day for 1 week, then if tolerated well, increase to 2 tab 3 times a day. I wi ll send new prescription. P M PDTTelephone Encounter - Palma Silva RN - 03/16/2019 11:43 AM DOM [place] called and wanted to let Dr. Dawson know that Uziel is doing well on Sinemet 25/100 mg tabs but would like to know if he can be titrated up higher. He is currently on the 1 tab TID but it is not quite enough to control his tremors all day long. Dr. Dawson is there room to increase this med? documented in this encounter Plan of Treatment Not on filedocumented as of this encounter Visit Diagnoses + + | Diagnosis | + + | 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
--- OUTSIDE RECORDS SUMMARY | ~2020-07-14 | XMS | Encounter Summary ---
Demographics + + + | Address | [address] | | | [place] [address] | + + + | Home Phone [...] + | Author | [facility] | | [...] [place], [place] | | | | | [address] | | + + + + + | Mao Rea | ECON | Unknown | | + + + + + | Meredith Rea | ECON | Unknown | | + + + + + Care Team Providers + +------+ + | Care Chlorination Operator Name | Role | Phone | + +------+ + | Brandon Juarez MD | PCP | | + +------+ + Reason for Visit +--------+--------+ + | Reason | Onset | Comments | | | Date | | +--------+--------+ + | Other | 12/12/ | | | | 2014 | | +--------+--------+ + Encounter Details +--------+ + + + + | Date | Type | Department | Care Team | Description | +--------+ + + + + | 12/12/ | Telephone | [facility] | Koby George MD | Other | | 2014 | | NEUROSURGERY [address] | [address] [place] [address] | | | | | [facility] [address] | [place] [address] | | | | | [place] | [phone] | | | | | [address] | | | | | | [phone] | | | +--------+ + + + [...] this encounter Miscellaneous Notes Telephone Encounter - PadillaLuzoseas Qiu - 12/12/2014 9:36 AM PST POST OP INCISION APPEARANCE (DRESSING?): The incision site is not red. Site is not hot to the touc h. Steri-strips are intact on the anterior site. The incision site itself is not swollen. Swelling under the anterior incision site. Was told by the ER MD that it was attributed to the hematoma shifting around. No additional bruising. DRAINAGE (APPEARANCE/AMOUNT): No. FEVER/CHILLS (ONSET): No. Labs and Ultrasound were done while at the ER. Labs were normal, did not show any signs of infection. Ultrasound showed the hematoma is a little smaller than when the last ultrasoun d was completed two days ago. Notes, and Ultrasound report requested from [facility] ER. Please forward to Brenden George once received. elephone Encounter - Brittany Georges - 12/12/2014 9:16 AM PSTDean spouse called to let Emily know that they went to the ER last night because his incision sight was red swollen. She stated that they d id blood work and ultra sound done as well. She would like call back. Please advise. documente brenden in this encounter Plan of Treatment Not on filedocumented as of this encounter Visit Diagnoses Not on filedocumented in this encounter"
--- OUTSIDE RECORDS SUMMARY | ~2020-07-14 | XMS | Encounter Summary ---
Demographics + + + | Address | [address] | | | [place] [address] | + + + | Home Phone [...] + | Author | [facility] | [...] [place] | | | | | [address] | | + + + + + | Mao Rea | ECON | Unknown | | + + + + + | Meredith Rea | ECON | Unknown | | + + + + + Care Team Providers + +------+ + | Care Legal Director Name | Role | Phone | [...] + + | 02/28/ | Office | [facility] | Logan Soto, | Chronic left-sided | | 2018 | Visit | PHYSIATRY [address] | [address] | low back pain with | | | | [address] | [place] | left-sided sciatica | | | | [place] | [address] | (Primary Dx); | | | | [address] | | History of lumbar | | | | [phone] | | fusion; Failed back | | [...] encounter Patient Instructions Patient Instructions Claudia Strickland, Solar Energy Systems Engineer - 02/28/2018 2:20 PM PDT Follow-up at [...] the procedure you must provide a driver education road instructor to take you home. For all procedur es it is recommended that someone else drive you home. documented in this encounter Progress Notes Logan Soto MD - 02/28/2018 2:20 PM PDTFormatting of this note might be different fro m the original. Logan Soto MD [address] [facility], [address] [place], [place] [id number] FAX: PHYSICAL MEDICINE AND REHABILITATION H&P CHIEF [...] spent 30 minutes in visit with Uziel Cuencated today with the majority of time spent [...]
--- OUTSIDE RECORDS SUMMARY | ~2020-07-14 | XMS | Encounter Summary ---
Demographics + + + | Address | [address] | | | [place] [address] | + + + | Home Phone [...] + + + | Author | [facility] | | | and [place] | + + + | Organization | [facility] | | [...] [place], [place] | | | | | [address] | | + + + + + | Mao Rae | ECON | Unknown | | + + + + + | Meredith Rea | ECON | Unknown | | + + + + + Care Team Providers + +------+ + | Care Corrugator Operator Name | Role | Phone | [...] | | | | low back | [address] | | | | | | pain with | [place], | | | | | | left-sided | [place] [address] | | | | | | sciatica | Phone: | | | | | | Lumbar | [phone] | | | | | | radiculopath | Fax: | | | | | | y Lumbar | [phone] | | | | | | spinal [...] | | | | low back | [address] | [place], [place] | | | | | pain with | [place], | [address] | | | | | left-sided | [place] [address] | Phone: | | | | | sciatica | Phone: | [phone] | | | | | Lumbar | [phone] | Fax: | | | | | radiculopath | Fax: | [phone] | | | | | y Lumbar | [phone] | | | | | | spinal [...] + + | 09/03/ | Office | [facility] [place] | Logan Sands, | Chronic left-sided | | 2016 | Visit | PHYSIATRY [address] | MD [address] | low back pain with | | | | [address] | [place] | left-sided sciatica | | | | [place] | [address] | (Primary Dx); Lumbar | | | | [address] | | radiculopathy; | | | | [phone] | | Lumbar spinal | | | [...] 09/03/2016 11:29 AM PDTIt is recommended that yo u follow up with Dr. George to discuss [...] MD - 09/03/2016 12:27 PM PDT [facility]YSI[facility] [address] [facility] [address] OFFICE NOTE LOGAN SANDS JR, MD Patient: RACHEL REA Admitting: MR #: [id number] LOC: PT TYPE: Adm Date: 09/03/2016 : [...] 09/03/2016 12:27:39 Transcribed on 09/04/2016 08:25:07 by sonia job# [id number] Confirmation #: [id number] cc: BRANDON JUAREZ MD Logan Sands MD - 09/03/2016 11:37 AM PDTThis office note has been dictated. Report Confirmation# [id number] signed by Logan Sands MD at 09/03/2016 12:27 PM PDTdocumented in this encounter Plan of Treatment + + +--------+ + + | Name | Type | Priori | Associated Diagnoses | Order Schedule | | | | ty | | | + + +--------+ + + | * [facility] [place] | Outpatient | Routin | Chronic [...]
--- OUTSIDE RECORDS SUMMARY | ~2020-07-14 | XMS | Encounter Summary ---
Demographics + + + | Address | [address] | | | [place] [address] | + + + | Home Phone | | + + + | Preferred Language | Unknown | + + + | Marital Status | | + + + | Confucianism Affiliation | Unknown | + + + | Race | White | + + + | Ethnic Group | Not or | + + + Author + + + | Author | [facility] | | | and [place] | + + + | Organization | [facility] | | | [...] [place] | | | | | [address] | | + + + + + | Mao Rea | ECON | Unknown | | + + + + + | Meredith Rea | ECON | Unknown | | + + + + + Care Team Providers + +------+ + | Care Computer Operations Specialist Name | Role | Phone | [...] + + | 09/06/ | Office | [facility] | Logan Soto, | Chronic left-sided | | 2017 | Visit | PHYSIATRY [address] | [address] | low back pain with | | | | [address] | [place] | left-sided sciatica | | | | [place] | [address] | (Primary Dx); Lumbar | | | | [address] | | radiculopathy; | | | | [phone] | | Sacroiliac joint | | | [...] m the original. Logan Soto MD [address] [facility], [address] [place], [place] [id number] FAX: PHYSICAL MEDICINE AND REHABILITATION H&P CHIEF COMPLAINT: Chief Complaint Patient presents with Back Pain HISTORY OF PRESENT ILLNESS: Uziel Rea is a 72 y.o. male being seen today in follow-up for complaints of back raj n. Uziel Rea was last seen on 07/20/17. Previously it was recommended that he comp lete left L2-G9DDOAK, that he complete consult with Dr. Jessica [...] helpful in reducing his pa in. Uziel Silas Rea reports that he has completed consult with Dr. Jessica. He reports that Dr Gokul Jessica recommends treatment with a SI joint RFA. Uziel Rea's medications, allergies, past medical, surgical, [...] left L2-L3 transforaminal ep idural steroid injection. Uziel Rea reports he continues to have 80% [...]
--- OUTSIDE RECORDS SUMMARY | ~2020-07-14 | XMS | Encounter Summary ---
Demographics + + + | Address | [address] | | | [place] [address] | + + + | Home Phone [...] Author | [facility] | | [...] [place] | | | | | [address] | | + + + + + | Mao Rea | ECON | Unknown | | + + + + + | Meredith Rea | ECON | Unknown | | + + + + + Care Team Providers + +------+ + | Care Business Systems Advisor Name | Role | Phone | + [...] 2018 | | NEUROLOGY [place] | [address] [facility] | | | | | [address] [facility], | [place] [address] | | | | | [address] [place] | [place] | | | | | [place] [address] | [address] | | | | | [phone] | | | +--------+ + + + [...]
--- OUTSIDE RECORDS SUMMARY | ~2020-07-14 | XMS | Encounter Summary ---
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 [facility] NEUROLOGY FOLLOW UP NOTE Primary Care [...] time for history of major depression (Sal Joaquin, [facility]). I discussed with the patie nt [...] therapy is helpful. I referred him to [facility] for Parkinson's motor symptoms. I also advised [...] 68 Louise/Yahr: Stage 3 Dima/Wero PD: 100% Dima/[place] Dyskinesia: 100% RECOMMENDATIONS: 1. Start carbidopa/levodopa 25/100, [...] daily. 3. Continue physical therapy for gait. Rock steady boxing also introduced. 4. Continue cognitive therapy [...] He is not interested in going ba ck to oral appliance therapy either. The patient [...] AND NEUROLOGY HISTORY: PCP: [facility]. Dane Rosen [facility] 73 y.o.RHD malewith history of major depression treated chronica lly with atypical antipsychotics and lithium, chronic immunomodulation for RA, LEANDRO, COPD, wh o was referred to me by DOM Dennis-Cfor evaluation of Parkinson's disease. [facility] for LEANDRO and RBD. 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 Sma ll amount of REM without atonia was noted. 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 No PLMS noted. Sleep fragmentation p rimarily associated with sleep related breathing disorder. PAP Titration - 03/09/18 - [facility] Impression: The patient had CPAP on [...] is oriented to person, place, and time. Rqhpet-tknl-oagyvz test: mild bila teral tremor. Neurologic Exam [...] the right. No shuffling or festination.) Coordination Grjrzt-fxfb-utmsrc test: mild bilateral tremor. Tremor Resting tremor: present (intermittent mild to moderate amplitude, moderate frequency, worse on the right) Intention tremor: present (moderate bilateral) Able to stand slow with arms crossed. Pull test: falls if not caught. SPECIAL MOTOR EXAM: Patient: 02/07/2019 11:20AM Section 3: Motor Total Score: [...] Dysability: 0 34. Dyskinesia Pain: 0 35. Fig Caprifier Dystonia: 1 36. Predictable Off Periods: 0 [...] Primary Paralysis agitans | + + | custodial current use of atypical antipsychotic medication | [...]
--- OUTSIDE RECORDS SUMMARY | ~2020-07-14 | XMS | Encounter Summary ---
Demographics + + + | Address | [address] | | | [place] [address] | + + + | Home Phone | | + + + | Preferred Language | Unknown | + + + | Marital Status | | + + + | Advent Affiliation | Unknown | + + + | Race | White | + + + | Ethnic Group | Not or | + + + Author + + + | Author | [facility] | | | and [place] | + + + | Organization | [facility] | | | [...] [place], [place] | | | | | [address] | | + + + + + | Mao Rea | ECON | Unknown | | + + + + + | Meredith Rea | ECON | Unknown | | + + + + + Care Team Providers + +------+ + | Care Wire Strander Name | Role | Phone | + +------+ + | Brandon Juarez MD | PCP | | + +------+ + Encounter Details +--------+ + + + + | Date | Type | Department | Care Team | Description | +--------+ + + + + | 09/05/ | Orders Only | [facility] [place] | Koby George MD | Sleep apnea, | | 2013 | | NEUROSURGERY [address] | [address] | obstructive (Primary | | | | [address] | [place] [address] | Dx); Essential | | | | [place], [place] | [phone] | hypertension, | | | | [address] | | benign; Fatigue; | | | | [phone] | | Cancer (HCC); | | | [...] on filedocumented as of this encounter Results ECG 12 [...] Christopher Alvarado MD - 11/29/2014 7:31 AM [facility] Adult ECG Report | | | | Name: Uziel Rea | | Age: 69 y.o. | | Gender: male | | | | 11/27/14 at 9:12 | | Narrative Interpretation: Sinus bradycardia. Normal axis. Normal intervals. | + + XR Chest PA and Lateral (11/27/2014 9:36 AM [facility]) + + | Specimen | [...] + | MISCELLANEOUS LAB | | | [phone] | + +---------+ + + | MISCELANIOUS LAB | | | [phone] | + +---------+ + + CBC with Differential (11/27/2014 9:13 AM PST) + + + + + + | Component | Value | Ref Range | Performed | Pathologist | | | | | At | Signature | + + + + + + | White Blood | 5.2 | 4.0 - 11.0 K/uL | [facility] | | | Cells | | | [facility] | | | | | | MEDICAL | | | | | | CENTER - | | | | | | LABORATORY | | + + + + + + | Red Blood | 5.46 | 4.30 - 5.70 | [facility] | | | Cells | | M/uL | [facility] | | | | | | MEDICAL | | | | | | CENTER - | | | | | | LABORATORY | | + + + + + + | Hemoglobin | 17.8 | 13.5 - 18.0 | [facility] | | | | | g/dL | [facility] | | | | [...] | | Eosinophils | | | [facility] | | [...] | | Lymphocytes | | K/uL | [facility] | [...] + | [facility] | [address] | [place], [place] | [phone] | | [facility] | | [address] | | | - LABORATORY | | | | + + + + + | [facility] | [address] | [place], [place] | | | [facility] | | [address], [facility] | | | - LABORATORY | | [...] | | | | | mg/dL | [facility] | | | | | | MEDICAL | | | | | | CENTER - | | | | | | LABORATORY | | + + + + + + | eGFR, | >60Comment: GLOMERULAR | >=60 | [facility] | | | non- | FILTRATION | mL/min/1.73m2 | [facility] | | | [place] | RATE,ESTIMATED | | MEDICAL | | | | mL/min/1.22d0Muag than | | CENTER - | | [...] | | | | | mg/dL | [facility] | | | | | | [...] [address] | [place] | [phone] | | [facility] | | [address] | | | - LABORATORY | | | | + + + + + | [facility] | [address] | [place], [place] | | | [facility] | | [address], [facility] | | | - LABORATORY | | [...]
--- OUTSIDE RECORDS SUMMARY | ~2020-07-14 | XMS | Encounter Summary ---
Demographics + + + | Address | [address] | | | [place] [address] | + + + | Home Phone [...] + + | Author | [facility] | | | and [place] | + + + | Organization | [facility] | | | and [...] [place], [place] | | | | | [address] | | + + + + + | Mao Rea | ECON | Unknown | | + + + + + | Meredith Rea | ECON | Unknown | | + + + + + Care Team Providers + +------+ + | Care City Dispatch Supervisor Name | Role | Phone | + +------+ + | Brandon Juarez MD | PCP | | + +------+ + Reason for Visit + +--------+ + | Reason | Onset | Comments | | | Date | | + +--------+ + | Appointment | 12/05/ | | | | 2014 | | + +--------+ + Encounter Details +--------+ + + + + | Date | Type | Department | Care Team | Description | +--------+ + + + + | 12/05/ | Telephone | [facility] | Koby George MD | Appointment | | 2014 | | NEUROSURGERY [address] | [address] [facility] [address] [address] | | | | | [facility] [address] | [place] [address] | | | | | [place] | [phone] | | | | | [address] | | | | | | [phone] | | | +--------+ + + + [...] this encounter Miscellaneous Notes Telephone Encounter - Annika Lindo RN - 12/06/2014 9:53 AM PSTAppointment rescheduled to 01/07/15 at 1200. Patient's spouse states understanding. All questions answered at this ti me. elephone Encounter - Brittany Georges - 12/05/2014 1:31 PM PSTDean would like to change his 4wk post op appo intment , please advise. documented in this encounter Plan of Treatment Not on filedocumented as of this encounter Visit Diagnoses Not on filedocumented in this encounter"
--- OUTSIDE RECORDS SUMMARY | ~2020-07-14 | XMS | Encounter Summary ---
Demographics + + + | Address | [address] | | | [place] [address] | + + + | Home Phone [...] + + | Author | [facility] | | | and [place] [...] [place], [place] | | | | | [address] | | + + + + + | Mao Rea | ECON | Unknown | | + + + + + | Meredith Rea | ECON | Unknown | | + + + + + Care Team Providers + +------+ + | Care Senior Electronics Engineer Name | Role | Phone | [...] | | | fusion | VIRY Ramos | [facility] | | | | | Lumbar | [address] | [address] | | | | | radiculopath | AVE | AVE | | | | | y [place] | [place] | [place] | | | | | stenosis of | [address] | [address] | | | | | lumbar | Phone: | Phone: | | | | | region | [phone] | [phone] | | | | | Spondylolist | Fax: | Fax: | | | | | hesis of | [phone] | [phone] | | | | | lumbar | [...] + + | 10/19/ | Office | [facility] | Ender Mora | S/P lumbar fusion | | 2016 | Visit | NEUROSURGERY [address] | [address] | (Primary Dx); Lumbar | | | | [address] [place] | radiculopathy; | | | | [place] | [address] | 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 Ender Mora PA-C [address] [facility], [address] [place] [address] FAX: NEUROSURGERY FOLLOW-UP CHIEF COMPLAINT: Chief Complaint [...]
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
--- OUTSIDE RECORDS SUMMARY | ~2020-07-14 | XMS | Encounter Summary ---
Demographics + + + | Address | [address] | | | [place] [address] | + + + | Home Phone [...] Author | [facility] | | | and [place] [...] [place], [place] | | | | | [address] | | + + + + + | Mao Rea | ECON | Unknown | | + + + + + | Meredith Rea | ECON | Unknown | | + + + + + Care Team Providers + +------+ + | Care Coat Tailor Name | Role | Phone | + +------+ + | Brandon Juarez MD | PCP | | + +------+ + Encounter Details +--------+ + + + + | Date | Type | Department | Care Team | Description | +--------+ + + + + | 02/18/ | Preadmit | [facility] | Koby George MD | Pre-operative | | 2017 | Visit | MED CTR PREADMIT | [address] | clearance (Primary | | | | CLINIC [address] | [place] [address] | Dx); Lumbar | | | | [place], [place] | [phone] | radiculopathy; | | | | [address] | | Pseudoarthrosis of | | | [...] | | | | Smoker - quit 1981 | | | | | | H/O [...] + | [facility] | [address] | [place] | [phone] | | [facility] | | [address] | | | - LABORATORY | | [...] | non- | FILTRATION | mL/min/1.73m2 | [facility] | | | [place] | RATE,ESTIMATED | | MEDICAL | | | | mL/min/1.42e5Wmqr than | | CENTER - | | [...] [address] | [place] | [phone] | | [facility] | | [address] | | | - LABORATORY | | [...] + + | [facility] | [address] | [place] | [phone] | | [facility] | | [address] | | | - LABORATORY | | [...] | | | | JUAN SALDIVAR MD ([id number]) | | | | | | on [...]
--- OUTSIDE RECORDS SUMMARY | ~2020-07-14 | XMS | Encounter Summary ---
Demographics + + + | Address | [address] | | | [place] [address] | + + + | Home Phone [...] Author | [facility] [...] [place] | | | | | [address] | | + + + + + | Mao Rea | ECON | Unknown | | + + + + + | Meredith Rea | ECON | Unknown | | + + + + + Care Team Providers + +------+ + | Care Manager Medical Affairs Name | Role | Phone | + +------+ + | Sherie Vela PA-C | PCP | | + +------+ + Reason for Visit +--------+--------+ + | Reason | Onset | Comments | | | Date | | +--------+--------+ + | Device | 02/20/ | | | | 2017 | | +--------+--------+ + Encounter Details +--------+ + + + + | Date | Type | Department | Care Team | Description | +--------+ + + + + | 02/20/ | Telephone | [facility] | Koby George MD | Device | | 2018 | | NEUROSURGERY [address] | [address] | | | | | [facility] | [place] [address] | | | | | [place] | [phone] | | | | | [address] | | | | | | [phone] | | | +--------+ + + + [...] this encounter Miscellaneous Notes Telephone Encounter - Giuliana Vasquez, Dye And Chemical Coordinator - 02/20/2018 11:58 AM PDTSent secu re email message to Reginald Trent with following request: "He saw patient Uziel Rea DOB 1945 for a 1 year PO for a lumbar fusion today. He h as an old bone growth stimulator and He is wondering if you can set him up with a new one? " docume madrigal in this encounter Plan of Treatment Not on filedocumented as of this encounter Visit Diagnoses Not on filedocumented in this encounter
--- OUTSIDE RECORDS SUMMARY | ~2020-07-14 | XMS | Encounter Summary ---
Demographics + + + | Address | [address] | | | [place] [address] | + + + | Home Phone | | + + + | Preferred Language | Unknown | + + + | Marital Status | | + + + | Mormonism Affiliation | Unknown | + + + | Race | White | + + + | Ethnic Group | Not or | + + + Author + + + | Author | [facility] | | | and [place] | + + + | Organization | [facility] | | | [...] [place], [place] | | | | | [address] | | + + + + + | Mao Rea | ECON | Unknown | | + + + + + | Meredith Rea | ECON | Unknown | | + + + + + Care Team Providers + +------+ + | Care Computer Game Designer Name | Role | Phone | [...] | | | | low back | [address] | [place], [place] | | | | | pain with | [place], | [address] | | | | | left-sided | [place] [address] | Phone: | | | | | sciatica | Phone: | [phone] | | | | | Lumbar | [phone] | Fax: | | | | | radiculopath | Fax: | [phone] | | | | | y Lumbar | [phone] | | | | | | spinal [...] + + | 11/30/ | Office | [facility] | Ender Mora | 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 Ender Mora PA-C [address] [facility], [address] [place], [place] [address] FAX: NEUROSURGERY FOLLOW-UP CHIEF COMPLAINT: Chief Complaint [...] harish longer after surgery as well to impregnator and drier helper in the fusion process. I've encouraged [...]
--- OUTSIDE RECORDS SUMMARY | ~2020-07-14 | XMS | Encounter Summary ---
Demographics + + + | Address | [address] | | | [place] [address] | + + + | Home Phone [...] + | Author | [facility] | | | and [place] [...] [place] | | | | | [address] | | + + + + + | Mao Rea | ECON | Unknown | | + + + + + | Meredith Rea | ECON | Unknown | | + + + + + Care Team Providers + +------+ + | Care Still Operator Name | Role | Phone | [...] + + | 12/06/ | Office | [facility] | Logan Soto, | Chronic left-sided | | 2018 | Visit | PHYSIATRY [address] | [address] | low back pain with | | | | [address] | [place] | left-sided sciatica | | | | [place] | [address] | (Primary Dx); Lumbar | | | | [address] | | radiculopathy; | | | | [phone] | | History of lumbar | | [...] Your inje ction will be performed at [facility]. Please take note [...] of the procedure you must provide a hazmat cdl a driver to take you home. For all procedur es it is recommended that someone else drive you home. documented in this encounter Progress Notes Logan Soto MD - 12/06/2017 1:00 PM PSTFormatting of this note might be different fro m the original. Logan Soto MD [address] [facility] [place], [place] [id number] FAX: PHYSICAL MEDICINE AND REHABILITATION H&P CHIEF [...]
--- OUTSIDE RECORDS SUMMARY | ~2020-07-14 | XMS | Encounter Summary ---
Demographics + + + | Address | [address] | | | [place] [address] | + + + | Home Phone [...] + + + | Author | [facility] | | | and [place] | + + + | Organization | [facility] | | | and [...] [place], [place] | | | | | [address] | | + + + + + | Mao Rea | ECON | Unknown | | + + + + + | Meredith Rea | ECON | Unknown | | + + + + + Care Team Providers + +------+ + | Care Service Line Layer Name | Role | Phone | [...] | | | lordosis | [address] | | | | | (acquired) | | [place], | | | | | Other | | [place] [address] | | | | | lordosis | | Phone: | | | | | (acquired) | | [phone] | | | | | Procedures | | Fax: | | | | | [place] | | [phone] | | | | | ARTHRODESIS | [...] + + | 12/02/ | Surgery | [facility] | Koby Shabazz MD | L2-3, L3-4, L4-5 | | 2015 | | MED CTR OR INTRA OP | [address] | LAIF, L2-3, L3-4, | | | | [address] | [place] [address] | L4-5 Posterior | | | | [place] | [phone] | Instrumentation, | | | | [address] | | L2-3 Decompression | | | | [phone] | | | +--------+---------+ + + + [...] might be differen t from the original. [facility] NEUROSURGERY DISCHARGE SUMMARY Patient Name: Uziel Rea [...] in the future. Follow up with Dr Shabazz in 4 weeks. documented in th is [...] chair for meal. at bedside. No david salazar in assessment. Electronically signed by: Libia [...] Clifford PA - 12/03/2014 7:28 AM PST [facility] PROGRESS NOTE Pt. Name/Age/: Uziel Rea 69 y.o. 1945 Med. Record Number: [id number] Date of admission: 12/02/2014 Subjective: The patient [...] Electronically signed by: Ender Mora, 12/03/2014 7:28 [facility] documented in th is encounter H&P Notes Koby Shabazz MD - 12/02/2014 12:54 [facility] INTERIM HISTORY AND PHYSICAL [...] formation is obtained. Electronically signed by: Koby Shabazz MD 12/02/2014 12:54 [facility] est, DOM Gold - 11/27/2014 8:33 AM PST DOM Sampson [address] [facility], [address] [place] [address] FAX: NEUROSURGERY HISTORY AND PHYSICAL EXAMINATION CHIEF COMPLAINT: Chief Complaint Patient presents with Follow-up Pre-Op HISTORY OF PRESENT ILLNESS: The patient is a 69 y.o. male with the complaint of back pain and leg pain that began over 1 year ago. The patient has been previously seen by Dr. shabazz an d evaluated. We are currently plan to proceed with [...] with short or termite control technician memory. CRANIAL NERVES: II: Acuity is intact. [...] w/c to car. lan of Care - Maia Morelos PT - 12/05/2014 9:03 AM PSTProblem: General [...] postop educ/trg. Advised pt/ to con sean LYONS should questions/concerns arise after d/c. No further PT indicated. Physical Therapy will follow Uziel Rea daily until discharge from therapy or dischar nani from the hospital. Physical Therapy Discharge Recommendations [...] to left flank. "B" grade LSO brace. Microbiology Lab Technician equal and strong. Plantar and dorsi strong. Mu scles strengths 4/5 X 4. Cap refill < 3 sec. Pedal pulses palpable. IV to LFA, SL. Voiding well on toilet. Pain well controlled with oral pain medications. Independent in room, cane. Anticipated DC home today. Calls appropriately. -Bharti Richards, RN lan of Care - Ivis Bella [...] pain control. lan of Care - Megan George, FAMILY PROGRAM SPECIALIST - 12/04/2014 12:50 PM PSTProblem: General Plan [...] leisure activities lan of Care - Emily Odell COTA - 12/04/2014 11:37 AM PSTProblem: General [...] and sock aid as they already have cementer hand, toilet riser, and grab bars in t [...] 5:02 PM PSTDischarge Planning: Uziel lives in [place] with his spouse, Henny. Uziel is using a Cane to get around. Both Henny and Uziel has declined home health. Henny will help with any needs. Henny will transport home at discharge. lan of Michael - Marlene Adan RRT - 12/03/2014 4:29 PM PSTProblem: General Plan of Care (Adult, Obstetrics) Goal: Care Plan Shift Summary & Review . BS clear. Oxygen titrated to RA 92%. Using inspirometer with good effort and on own. Dry cough. lan of [facility] Angeles Landa OT - 12/03/2014 12:07 [...] stenosis with neurogenic claudication 714.0 Rheumatoid arthritis(714.0) (HCC) Date of Onset: 12/02/14 Referring Physician: Dr. Shabazz/VIRY Mora Past Medical History Diagnosis Date Depression [...] is a 69 y.o. who [facility] & leg pain x 1 [...] Cues;5 Safety Supervision;6 Extra Time;6 Sock Aid;6 Head Of Insight;5 Get Clothing Toiletin Toileting Score Evidence: 0 [...] Supine-sit w/ supervision. Dressed @ EOB, utilized cementer hand & sock-aid for LB. Ambulated w/ SBA [...] standing in room with LSO donned while PHARMACEUTICAL SALESPERSON changing be dding. Ambulated w/o AD x [...] prior leisure activities p Note - Koby Shabazz MD - 12/02/2014 5:47 PM PST Operative Note Uziel Rea 69 y.o. male 1945 [id number] Proc. Date 12/02/2014 Preop Dx Flat back [...] Church Surgeon Surgeon(s) and Role: * Koby Shabazz MD - Primary * DOM Lo - A ssisting EBL 654 Findings Soft bone L4 and L5. Sclerotic bone L2, L3. Severe L2-3 stenosis. Complications none Specimens * No specimens in log * Drains Drain/Device Site 12/02/14 1677 #1 posterior lumbar spine collapsible closed device [...] PEEK spacer was prepared filling it with Osteocel/Hemphill and t hen tamping it into the [...] PEEK spacer was prepared filling it with Osteocel/Patti and then tampin g it into the [...] in stable condition. Electronically signed by: Koby Shabazz MD 12/02/2014 17:44 [facility] rief Op Note - Musa Shabazz MD - 12/02/2014 5:44 PM PSTFormatting of this note might be different from the origin al. Brief Operative Note Uziel Silas Rona 69 y.o. male 1945 [id number] Proc. Date 12/02/2014 Preop Dx Flat back [...] Church Surgeon Surgeon(s) and Role: * Koby Shabazz MD - Primary * DOM Lo - A ssisting EBL 654 Findings Soft bone L4 and L5. Sclerotic bone L2, L3. Severe L2-3 stenosis. Complications none Specimens * No specimens in log * Drains Drain/Device Site 12/02/14 1707 #1 posterior lumbar spine collapsible closed device (Ac tive) Electronically signed by: Koby Shabazz MD 12/02/2014 17:44 [facility] lan of Care - Jerri Silva PT - 12/02/2014 5:33 PM PSTProblem: General [...] + + + | UNIT # | [id number] | | [facility] | | | | [...] | | [facility]P | | | [facility] | | | | | | MEDICAL | | | | | | CENTER - | | | | | | BLOOD BANK | | + + + + + + | Unit Status | Returned | | [facility] | | | | | | [facility] | | | | | | [...] [place] | | | [facility] | | [address] | | | - BLOOD BANK | [...] | | Code | | | [facility] | | | | | | MEDICAL | | | | | | CENTER - | | | | | | BLOOD BANK | | + + + + + + | UNIT # | [id number] | | [facility] | | | | | | [facility] | | | | | | MEDICAL | | | | | | CENTER - | | | | | | BLOOD BANK | | + + + + + + | UNIT ABO | O | | [facility] | | | | | | [facility] | | | | | | MEDICAL | | | | | | CENTER - | | | | | | BLOOD BANK | | + + + + + + | UNIT RH | POS | | [facility] | | | | | | [facility] | | | | | | MEDICAL | | | | | | CENTER - | | | | | | BLOOD BANK | | + + + + + + | CROSSMATCH | Compatible | | [facility] | | | [facility] | | | [facility] | | [...] + | [facility] | [address] | [place], [place] | | | [facility] | | [address] | | | - BLOOD BANK | | | | + + + + + XR Lumbar Spine 2 or 3 Vw (12/03/2014 7:20 AM [facility]) + + | Specimen [...] + | MISCELLANEOUS LAB | | | [phone] | + +---------+ + + | MISCELANIOUS LAB | | | [phone] | + +---------+ + + CBC no [...] | | Cells | | | [facility] | | | | | | MEDICAL | | | | | | CENTER - | | | | | | LABORATORY | | + + + + + + | Red Blood | 3.90 (L) | 4.30 - 5.70 | [facility] | | | Cells | | M/uL | [facility] | | | | [...] + | [facility] | [address] | [place], [place] | [phone] | | [facility] | | [address] | | | - LABORATORY | | | | + + + + + | [facility] | [address] | [place], [place] | | | [facility] | | [address] [place] [address] | | | - LABORATORY | | [...] | | Screen | | | [facility] | | [...] [place] | | | [facility] | | [address] | | | - BLOOD BANK | [...] ANNE | | | | | | [facility] [...] + | [facility] | [address] | [place] | [phone] | | [facility] | | [address] | | | - LABORATORY | | | | + + + + + | [facility] | [address] | [place] | | | [facility] | | [address], [facility] | | | - LABORATORY | [...] | Time | | seconds | [facility] | | | | | | MEDICAL | | | | | | CENTER - | | | | | | LABORATORY | | + + + + + + | INR | 1.04Comment: Usual Oral | 0.90 - 1.10 | [facility] | | | | Anticoagulation Range: | | [facility] | | | | 2.0 - 3.0High [...] + | [facility] | [address] | [place] | [phone] | | [facility] | | [address] | | | - LABORATORY | | | | + + + + + | [facility] | [address] | [place] | | | [facility] | | [address], [facility] | | | - LABORATORY | [...] mLs | | Surgical | | 1:200,000 0.5-1:580144 % | | 15 5:08 | | [...]
--- OUTSIDE RECORDS SUMMARY | ~2020-07-14 | XMS | Encounter Summary ---
Demographics + + + | Address | [address] | | | [place] [address] | + + + | Home Phone [...] + + + | Author | [facility] | | | and [place] | + + + | Organization | [facility] | | | [...] [place] | | | | | [address] | | + + + + + | Mao Rea | ECON | Unknown | | + + + + + | Meredith Rea | ECON | Unknown | | + + + + + Care Team Providers + +------+ + | Care Dinkey Skinner Name | Role | Phone | + [...] | | | Tino, | [address] | | | | | Sacroiliitis | Luis Carlos Lerner MD | [place], | | | | | ([facility]) | [address] | [place] | | | | | Procedures | [place] | [address] | | | | | [place] INJECT SI | [facility], [place] | Phone: | | | | | JOINT | [address] | [phone] | | | | | ARTHRGRPHY&/ | Phone: | Fax: | | | | | ANES/STEROID | [phone] | [phone] | | | | | W/IMAGE NM | Fax: | | | | | | | [phone] | | | | | | TRIAMCINOLON [...] + + | 06/01/ | Hospital | [facility] | Eric, | S/P lumbar fusion; | | 2017 | Encounter | MED CTR XRAY [address] | [address] | Sacroiliitis, not | | | | [place] | [facility] [address] | elsewhere classified | | | | [place] [address] | [place] [address] | ([facility]) | | | | [phone] | [phone] | | | | | | | | | | | | Rn Paralegal, [facility] | | | | | | [place] | | +--------+ + + + + [...] mg by mouth | | 0 | /08/19 | | | capsule | 3 times [...] results section. | | | | | ([facility]) | | + +--------+ + + + [...] | 06/01/2017Bilateral Sacroiliac Joint InjectionClinical History: | . CHRISTINA | | Sacroiliitis ICD-10 M46.1 Uziel Rea presents to the [facility] | | suite for fluoroscopically guided bilateral [...] | [facility] | [address] | [place] | [phone] | | [facility] | | [address] | | | - IMAGING | | | | + + + + + FL Sacroiliac Injection Left (06/01/2017 1:12 PM PDT) + + | Specimen | + + | | + + + + + | Narrative | Performed At | + + + | | [facility] | | 06/01/2017Bilateral Sacroiliac Joint InjectionClinical History: | [facility] | | Sacroiliitis ICD-10 M46.1 Uziel Rea presents to the [facility] | | suite for fluoroscopically guided bilateral [...] ST. | [address] | [place] | [phone] | | [facility] | | [address] | | | - IMAGING | | [...] | | | | | Other, ONCE, 06/01/17 at 1330, | | PM PDT | | | | | For 1 dose | | | | | | + +-------+ +-------+---+---+ +---+---+ | | | +---+---+ + +-------+ +-------+---+---+ | lidocaine (PF) 1% injection 2 | Given | 06/01/20 | 2 mLs | | | | mL 2 mL, Other, ONCE, 06/01/17 | | 17 1:22 | | | [...]
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
--- OUTSIDE RECORDS SUMMARY | ~2020-07-14 | XMS | Encounter Summary ---
Demographics + + + | Address | [address] | | | [place] [address] | + + + | Home Phone | | + + + | Preferred Language | Unknown | + + + | Marital Status | | + + + | Rastafarian Affiliation | Unknown | + + + | Race | White | + + + | Ethnic Group | Not or | + + + Author + + + | Author | [facility] | | | and [place] | + + + | Organization | [facility] | | | [...] [place], [place] | | | | | [address] | | + + + + + | Mao Rea | ECON | Unknown | | + + + + + | Meredith Rea | ECON | Unknown | | + + + + + Care Team Providers + +------+ + | Care Acid Tank Cleaner Name | Role | Phone | [...] | | | | | stenosis | [address] | [place], [place] | | | | | Lumbalgia | [place], | [address] | | | | | Lumbar | [place] [address] | Phone: | | | | | degenerative | Phone: | [phone] | | | | | disc | [phone] | Fax: | | | | | disease | Fax: | [phone] | | | | | Lumbar facet | [phone] | | | | | | arthropathy | | | | | | | Procedures | | | | | | | [place] OFFICE | | | | | | [...] | | | | | stenosis | [address] | | | | | | Lumbalgia | [place], | | | | | | Lumbar | [place] [address] | | | | | | degenerative | Phone: | | | | | | disc | [phone] | | | | | | disease | Fax: | | | | | | Procedures | [phone] | | | | | | CT [...] + + | 06/28/ | Office | [facility] | Logan Soto, | Lumbar spinal | | 2013 | Visit | PHYSIATRY [address] | [address] | stenosis (Primary | | | | [address] | [place] | Dx); Lumbalgia; | | | | [place] | [address] | Lumbar degenerative | | | | [address] | | disc disease; Lumbar | | | | [phone] | | facet arthropathy; | | | | | | Rheumatoid arthritis | | | | | | ([facility]); Marijuana | | | | | | [...] office note has been dictated. Job ID# [id number] signed by Logan Soto MD at 06/28/2014 1:52 PM Citlalli Pendleton RN - 06/28/2014 9:08 AM PDTC/o lower back and left leg pain, rated 7-8/10. Here to review M RI and x-rays. Linda Betts MD - 06/28/2014 12:00 AM PDT [facility] [address] [place] [address] [id number] FAX: [phone] OFFICE VISIT PHYSICAL MEDICINE REHABILITATION PROGRESS NOTE [...] Arava 10 mg daily. 13. Lisinopril. 14. Loughman. 15. Loratadine. 16. Cannabis inhaled daily. 17. [...] short-term benefit. Approximately 30 minutes was spent bkyi-sd-xtmm today with Mr. Rea, over half of which w as spent formulating and discussing his medical treatment plan. Thank you for allowing me t o be involved in the care of your patient. If you have any questions regarding the care of Mr. Rea please do not hesitate to call. Logan Soto Jr, MD BARAK / CHARLEE JOB #: [id number] cc: Brandon Juarez MD A M PDTdocumented [...] + + +--------+ + + | * [facility] [place] | Outpatient | Routin | Lumbar [...]
--- OUTSIDE RECORDS SUMMARY | ~2020-07-14 | XMS | Encounter Summary ---
Demographics + + + | Address | [address] | | | [place] [address] | + + + | Home Phone [...] | Located Within [facility] | | | and [place] [...] [place], [place] | | | | | [address] | | + + + + + | Mao Rea | ECON | Unknown | | + + + + + | Meredith Rea | ECON | Unknown | | + + + + + Care Team Providers + +------+ + | Care Stamping Die Maker Bench Name | Role | Phone | + +------+ + | Brandon Juarez MD | PCP | | + +------+ + Reason for Visit +---------+--------+ + | Reason | Onset | Comments | | | Date | | +---------+--------+ + | Post Op | 03/16/ | post op physical therapy question | | | 2016 | | +---------+--------+ [...] [address] | [place] [address] | question ) | | | | [place] | [phone] | | | | | [address] | | | | | | [phone] | | | +--------+ + + + [...] encounter Miscellaneous Notes Telephone Encounter - Jus Lundberg Medical Assistant - 03/17/2017 8:45 AM PDTSpoke with patients spouse, Maribell, she verbalized understanding of Ellen juarez. She also wanted to know how soon they can get a bone growth stimulator. Advised her that I will speak to Reginald and let them know. elephone Encounter - Ender Mora PA-C - 017 6:46 AM PDTHe should use his walker as long as he is unsteady or needs support. Electr onically signed by Ender Mora PA-C at 03/17/2017 6:47 AM PDTTelephone Encounter - Jus Lundberg Medical Assistant - 03/16/2017 1:23 PM PDTPatients spouse is wanting t o know if should continue to use walker. Their 4w post op was moved so it will be a couple weeks till they are in the office and she wants to make sure they are doing what they are supposed to be doing. Please advise. documented in this encounter Plan of Treatment Not on filedocumented as of this encounter Visit Diagnoses Not on filedocumented in this encounter"
--- OUTSIDE RECORDS SUMMARY | ~2020-07-14 | XMS | Encounter Summary ---
Demographics + + + | Address | [address] | | | [place] [address] | + + + | Home Phone [...] | Author | [facility] | | | and [...] [place] | | | | | [address] | | + + + + + | Mao Rea | ECON | Unknown | | + + + + + | Meredith Rea | ECON | Unknown | | + + + + + Care Team Providers + +------+ + | Care Live Out Nanny Name | Role | Phone | + [...] | [address] | [address] [place] | Sacroiliitis, not | | | | [place] | [address] | elsewhere classified | | | | [address] | | ([facility]) | | | | [phone] | | | +--------+ + + + [...] filedocumented as of this encounter Results [place] Sacroiliac Injection Right (06/01/2017 1:12 PM PDT) + + | Specimen | + + | | + + + + + | Narrative | Performed At | + + + | | [facility] | | 06/01/2017Bilateral Sacroiliac Joint InjectionClinical History: | [facility] | | Sacroiliitis ICD-10 M46.1 Uziel Rea presents to the [facility] | | suite for fluoroscopically guided bilateral [...] ST. | [address] | [place], [place] | [phone] | | [facility] | | [address] | | | - IMAGING | | | | + + + + + FL Sacroiliac Injection Left (06/01/2017 1:12 PM PDT) + + | Specimen | + + | | + + + + + | Narrative | Performed At | + + + | | [facility] | | 06/01/2017Bilateral Sacroiliac Joint InjectionClinical History: | [facility] | | Sacroiliitis ICD-10 M46.1 Uziel Rea presents to the [facility] | | suite for fluoroscopically guided bilateral [...] ST. | [address] | [place], [place] | [phone] | | [facility] | | [address] | | | - IMAGING | | | | + + + + + documented in this encounter Visit Diagnoses + + | Diagnosis | + + | S/P lumbar fusion - Primary Arthrodesis status | + + | Sacroiliitis, not elsewhere classified (HCC) Sacroiliitis, not elsewhere classified | + + documented in this encounter"
--- OUTSIDE RECORDS SUMMARY | ~2020-07-14 | XMS | Encounter Summary ---
Demographics + + + | Address | [address] | | | [place] [address] | + + + | Home Phone | | + + + | Preferred Language | Unknown | + + + | Marital Status | | + + + | Islam Affiliation | Unknown | + + + | Race | White | + + + | Ethnic Group | Not or | + + + Author + + + | Author | [facility] | | | and [place] | + + + | Organization | [facility] | | [...] [place], [place] | | | | | [address] | | + + + + + [...] Changes | NEUROSURGERY [address] | Lazarus, Sales Team Member | | | | | [address] | | | | | | [place] | | | | | | [address] | | | | | | [phone] | | | +--------+ + + + [...]
--- OUTSIDE RECORDS SUMMARY | ~2020-07-14 | XMS | Encounter Summary ---
Demographics + + + | Address | [address] | | | [place] [address] | + + + | Home Phone [...] | Author | [facility] | | | and [place] [...] Henny Rea | ECON | [address] | | | | | [place] | | | | | [address] | | + + + + + | Mao Rea | ECON | Unknown | | + + + + + | Meredith Rea | ECON | Unknown | | + + + + + Care Team Providers + +------+ + | Care Adjunct Nursing Faculty Name | Role | Phone | + [...] | | | n | Parkinson's | [facility] | [place] | | | | | disease | MD Milo | Therapy [address] | | | | | ([facility]) G20 | [address] | | | | | Dmitry | [address] | [place], | | | | | PRINTING ENGINEER | [place], | [place] [address] | | | | | | [place] [address] | Phone: | | | | | | Phone: | [phone] | | | | | | [phone] | Fax: | | | | | | Fax: | [phone] | | | | | | [phone] | | + +--------+ + + + + Encounter Details +--------+---------+ + + + | Date | Type | Department | Care Team | Description | +--------+---------+ + + + | 06/10/ | [facility] [place] | Winnie Merino, | Cognitive | | 2020 | Visit | [facility] | Speech Pathologist | communication | | | | [address] | | disorder | | | | [place] | | | | | | [address] | | | | | | [phone] | | | +--------+---------+ + + + [...] Progress Notes Winnie Merino, Speech Pathologist - 06/10/2020 2:15 PM PDTFormatting of this note [facility] t be different from the original. [facility] [address] [place] [facility] [facility] [address] Speech Therapy Daily Treatment Note Date: 06/10/2020 Patient Information Patient Name: Uziel Rea Date of : 1945 Age: 75 y.o. 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 Date of Onset: 04/18/2020 Referring Provider: Murphy Ordaz MD Rehab Precautions Office Visit from 04/18/2020 in [facility] Rehab Precautions Precautions Comments Depression/mental health Hx Rehab Learning Style Office Visit from 04/18/2020 [facility] Learning Style Patient's Optimum Learning Style reading [written information] Today's Treatment Start Time: 1422 Stop time: 1506 Duration: 43 minutes Timed Treatment Codes: 15 minutes # of Speech Visits to Date: 8 Pain Assessment: Pain Scale Used: NUMERICPain Rating Pre Assessment: 7 Subjective: Patient and pt's , Maribell, present for session. Brought memory notebook, an [employer] Ipad. Patient reports continuing to have significant pain, but had virtual visit with josue nielsen this morning and is planing to schedule MRI and CT to determine cause of pain because x- ray "looked good". Objective: With the use of repetition and varied delays, patient was able to recall the 3-s tep sequence to record, and stop recording to improve functional ability to send e-mails, [facility] 9/10 success independently. Patient continues to need cues for problem solving situations and written reminders for improved function. Patient has improved use of voice recording. Assessment: Continued training needed to independently send e-mails from IPad to improve co mmunication. Goals: Additional PRINTING ENGINEER Goals OP PRINTING ENGINEER Goals: Goal 4 Goal 3: Patient will demonstrate ability to recall a 3 step sequence with the use of spaced retrieval with 8 min delay. Goal 3 Status: Goal met with 5/5 success Goal 4: Patient will independently recall steps to send email to improve communication with written notes as needed. Goal 4 Status: In progress Plan: Assess functional and successful use of memory notebook to initiate tasks with daily schedule,train use of IPad with spaced retrieval to improve communication. Electronically signed by: Winnie Merino Speech Pathologist, 06/10/2020 3:21 PM PDT Patient Name: Uziel Rea/: 1945/ doc umented in this encounter Plan of Treatment Not on filedocumented as of this encounter Visit Diagnoses + + | Diagnosis | + + | Cognitive communication disorder | + + documented in this encounter
--- OUTSIDE RECORDS SUMMARY | ~2020-07-14 | XMS | Encounter Summary ---
Demographics + + + | Address | [address] | | | [place] [address] | + + + | Home Phone [...] | Author | [facility] | | | and [place] | [...] [place], [place] | | | | | [address] | | + + + + + | Mao Rea | ECON | Unknown | | + + + + + | Meredith Rea | ECON | Unknown | | + + + + + Care Team Providers + +------+ + | Care Poundmaster Name | Role | Phone | + [...] | Radiology | Diagnoses | Soto, | [facility] | | | | | Lumbalgia | Logan Rios MD | [address] | | | | | Lumbar | [address] | [place], | | | | | radiculopath | [address] | [place] | | | | | y Lumbar | [place], | [address] | | | | | spondylosis | [place] [address] | Phone: | | | | | Left leg | Phone: | [phone] | | | | | weakness | [phone] | Fax: | | | | | Lower | Fax: | [phone] | | | | | extremity | [phone] | | | | | | numbness [...] | pain | MD Sohail | [address] | | | | n | | [address] | [place], | | | | | | [place] | [place] [address] | | | | | | [place] | Phone: | | | | | | [address] | [phone] | | | | | | Phone: | Fax: | | | | | | [phone] | [phone] | | | | | | Fax: | | | | | | | [phone] | | +--------+--------+ + + + + Encounter Details +--------+---------+ + + + | Date | Type | Department | Care Team | Description | +--------+---------+ + + + | 06/17/ | Office | [facility] | Logan Soto, | Lumbalgia (Primary | | 2013 | Visit | PHYSIATRY [address] | MD [address] | Dx); Lumbar | | | | [address] | [place] | radiculopathy; | | | | [place] | [address] | Lumbar spondylosis; | | | | [address] | | Left leg weakness; | | | | [phone] | | Lower extremity | | | [...] office note has been dictated. Job ID# [id number] signed by Logan Soto MD at 06/17/2014 2:01 PM Citlalli Pendleton RN - 06/17/2014 1:13 PM PDTC/o lower back pain, rated 7/10. Taking medical marijuana for pa in. Pain started few months ago. Hx: rhematoid arthritis. Logan Betts MD - 06/17/2014 12:00 AM PDT [facility] [address] [place] [address] FAX: [phone] OFFICE VISIT PHYSICAL MEDICINE REHABILITATION CONSULT CONSULT [...] daily. 12. Lisinopril 10 mg daily. 13. [place] 300 mg 3 times per day. 14. [...] is retired. 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 He indicates that he [...] low. Greater than 45 minutes was spent cbqw-bi-bpec today with Mr. Rea, over half of which wa s spent formulating and discussing his medical treatment plan. Logan Soto Jr, MD GEM / TB JOB #: [id number] cc: Brandon Juarez MD A M PDTdocumented in this encounter Miscellaneous Notes Miscellaneous - ONBASE SCAN [facility] - 06/17/2014 12:00 AM PDT iscellaneous - ONBASE SCAN [facility] - 06/04/2014 12:00 AM PDTEle ctronically signed by [facility] at 06/21/2014 2:16 PM PDTdocumented in this encounter Plan of [...] + | MISCELLANEOUS LAB | | | [phone] | + +---------+ + + | MISCELANIOUS LAB | | | [phone] | + +---------+ + + XR Lumbar [...] + | MISCELLANEOUS LAB | | | [phone] | + +---------+ + + | MISCELANIOUS LAB | | | [phone] | + +---------+ + + documented in [...]
--- OUTSIDE RECORDS SUMMARY | ~2020-07-14 | XMS | Encounter Summary ---
Demographics + + + | Address | [address] | | | [place] [address] | + + + | Home Phone [...] + + + | Author | [facility] | | | and [place] | + + + | Organization | [facility] | | [...] [place], [place] | | | | | [address] | | + + + + + | Mao Rea | ECON | Unknown | | + + + + + | Meredith Rea | ECON | Unknown | | + + + + + Care Team Providers + +------+ + | Care Retail Wireless Sales Representative Name | Role | Phone | [...] + + | 03/08/ | Office | [facility] | Ender Mora | S/P lumbar fusion | | 2017 | Visit | NEUR[address]URGERY [address] | [address] | (Primary Dx); | | | | [address] | [address] [place], [place] | Synovial cyst of | | | | [place] | [address] | lumbar facet joint; | | | | [address] | | Pseudoarthrosis of | | | | [phone] | | lumbar spine | +--------+---------+ + [...] PA- C - 03/08/2017 12:09 PM PDT Ender Mora PA-C [address] [facility] [place], [address] [place] [address] FAX: NEUROSURGERY FOLLOW-UP CHIEF COMPLAINT: Chief Complaint Patient presents with Post Op HISTORY OF PRESENT ILLNESS: The patient is a 71 y.o. male that had a Lumbar fusion and [facility] revision for Pseudoarthrosis and synovial cyst around [...]
--- OUTSIDE RECORDS SUMMARY | ~2020-07-14 | XMS | Encounter Summary ---
Demographics + + + | Address | [address] | | | [place] [address] | + + + | Home Phone [...] | Author | [facility] | [...] [place], [place] | | | | | [address] | | + + + + + | Mao Rea | ECON | Unknown | | + + + + + | Meredith Rea | ECON | Unknown | | + + + + + Care Team Providers + +------+ + | Care Infectious Diseases Physician Name | Role | Phone | [...] | y Facet | [place], | [place] | | | | | arthropathy, | [place] [address] | [address] | | | | | lumbar | Phone: | Phone: | | | | | | [phone] | [phone] | | | | | | Fax: | Fax: | | | | | | [phone] | [phone] | +--------+ + + + + + Reason for Visit +---------+ + | Reason | Comments | +---------+ + | Post Op | 4W PO | +---------+ + Encounter Details +--------+---------+ + + + | Date | Type | Department | Care Team | Description | +--------+---------+ + + + | 04/05/ | Office | [facility] | Pedro Riggins | S/P lumbar fusion | | 2017 | Visit | NEUROSURGERY [address] | [address] | (Primary Dx); Lumbar | | | | [address] | [address] | radiculopathy; | | | | [place] | [place] | Facet arthropathy, | | | | [address] | [address] | lumbar | | | | [phone] | | | +--------+---------+ + + + [...] encounter Patient Instructions Patient Instructions Giuliana Kebede, Metallurgical Tester - 04/05/2017 2:30 PM PDTI have ord [...] your back and use good technique when 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 documented in this encounter Progress Notes Pedro Riggins PA-C - 04/05/2017 2:30 PM PDTFormatting of this note might be differen t from the original. Pedro Riggins PA-C [address] [facility], [address] [place] [address] FAX: NEUROSURGERY FOLLOW-UP CHIEF COMPLAINT: Chief Complaint [...] 8 weeks for re-evaluation. ELECTRONICALLY SIGNED BY: ePdro Riggins PA-C, 04/05/2017 14:20 Giuliana Kebede assisted me in the process design engineer of this note in my presence today. [...] | Procedure Note | + + | Sen Espinoza Results In - 08/09/2017 1:03 PM PDT [...]
--- OUTSIDE RECORDS SUMMARY | ~2020-07-14 | XMS | Encounter Summary ---
Demographics + + + | Address | [address] | | | [place] [address] | + + + | Home Phone [...] Author | [facility] [...] [place], [place] | | | | | [address] | | + + + + + | Mao Rea | ECON | Unknown | | + + + + + | Meredith Rea | ECON | Unknown | | + + + + + Care Team Providers + +------+ + | Care Inside Sales Territory Manager Name | Role | Phone | + +------+ + | Brandon Juarez MD | PCP | | + +------+ + Reason for Visit +--------+--------+ + | Reason | Onset | Comments | | | Date | | +--------+--------+ + | Other | 12/10/ | | | | 2014 | | +--------+--------+ + Encounter Details +--------+ + + + + | Date | Type | Department | Care Team | Description | +--------+ + + + + | 12/10/ | Telephone | [facility] | Koby George MD | Other | | 2014 | | NEUROSURGERY [address] | [address] | | | | | [address] [facility] [address] | [place] [address] | | | | | [place] | [phone] | | | | | [address] | | | | | | [phone] | | | +--------+ + + + [...] Notes Telephone Encounter - Emily Padilla - 12/11/2014 8:09 AM PSTHenny took Uziel to the ER at [facility] yesterday. Uziel had an US and labs done in the ER. Labs were normal. Ultrasound sh owed a hematoma or seroma in his lumbar area. They were advised by the ER MD that with time this will resolve on it's own. Records requested from [facility]. Please forward to Dr. George once received. elephone Encounter - Randy Emily Qiu - 12/10/2014 1:44 PM Kimberly, Uziel's spouse, is advised per Dr. George. S he verbalized understanding. P M PSTTelephone Encounter - Koby George MD - 12/10/2014 12:57 PM PSTI do not know the cause of the bruising in his groin or ribs. The back area makes sense since he had recent surger y. He was quite easy to bleed with his operation and this may be the result of some underlying bleeding disorder that has yet to be diagnosed. I would suggest he go to the nearest ED for evaluation of his bleeding factors and perhaps get some new imaging to make sure there wasn't something going on of greater concern. Koby George elephone Encounter - Emily Moulton - 12/10/2014 10:56 AM PSTProcedure: L2-L5 Fusion Date of Surgery: 12/02/14 TYPE OF PAIN (BURNING/ACHY/CONSTANT/SPORADIC): Pain is isolated to his low back area. Blanka francisco states "I think I am doing pretty good". This morning Uziel has a low grade fever, 99.4 degrees Fahrenheit. Has bruising all across his low back, rib and groin area-bruised area seems to be worsening. His started to no martín a change in his appetite about yesterday afternoon. Uziel states that he was feeling a little nauseous and "just not interested in food". His is concerned about the change i n appetite and bruising and asks if this is normal? UPPER/LOWER EXTREMITY NUMBNESS/WEAKNESS(NEW ONSET): No. LOSS OF BOWEL OR BLADDER (WHEN?): No. elephone Encounter - Sho Scott - 12/10/2014 10:04 AM PSTPatient's spouse called today with concerns regardregina Triplett's recovery from surgery. She states that he lost quite a bit of blood during the surg laurel, and that he is now experiencing extensive bruising, as well as a loss of appetite and a low-grade fever. She would like a call back on her cell at [phone].Electronically sign ed by Sho Scott at 12/10/2014 10:05 AM PSTdocumented in this encounter Plan of Treatment Not on filedocumented as of this encounter Visit Diagnoses Not on filedocumented in this encounter
--- OUTSIDE RECORDS SUMMARY | ~2020-07-14 | XMS | Encounter Summary ---
Demographics + + + | Address | [address] | | | [place] [address] | + + + | Home Phone [...] | Located Within [facility] | | [...] [place] | | | | | [address] | | + + + + + | Mao Rea | ECON | Unknown | | + + + + + | Meredith Rea | ECON | Unknown | | + + + + + Care Team Providers + +------+ + | Care Nonprofit Fundraiser Name | Role | Phone | + +------+ + | Sherie Vela PA-C | ENA | | + +------+ + Encounter Details +--------+ + + + + | Date | Type | Department | Care Team | Description | +--------+ + + + + | 03/07/ | Orders Only | [facility] [place] | Luis Carlos Jiménez | Lumbar radiculopathy | | 2018 | | PHYSIATRY [address] | TMD [address] | (Primary Dx) | | | | [address] | [place] | | | | | [place] | [address] | | | | | [address] | | | | | | [phone] | | | +--------+ + + + [...]
--- OUTSIDE RECORDS SUMMARY | ~2020-07-14 | XMS | Encounter Summary ---
Demographics + + + | Address | [address] | | | [place] [address] | + + + | Home Phone [...] | Author | [facility] | [...] [place] | | | | | [address] | | + + + + + | Mao Rea | ECON | Unknown | | + + + + + | Meredith Rea | ECON | Unknown | | + + + + + Care Team Providers + +------+ + | Care Security Coordinator Name | Role | Phone | [...] Rehabilitatio | Diagnoses | Samir, | [facility] | | | Services | n | Parkinson's | Jarvis S, | Jaxson | | | Required | | disease | MD 19 | Therapy 1025 | | | | | ([facility]) | [place] | [address] | | | | | Procedures | [place] [address] | [place], | | | | | [place] | [address] [facility] | [place] [address] | | | | | | [facility] [place] | Phone: | | | | | | [address] | [phone] | | | | | | Phone: | Fax: | | | | | | [phone] | [phone] | | | | | | Fax: | | | | | | | [phone] | | +--------+ + + + + + Reason for Visit + +--------+ + | Reason | Onset | Comments | | | Date | | + +--------+ + | Referral | 02/08/ | [place] | | | 2019 | | + +--------+ + Encounter Details +--------+ + + + + | Date | Type | Department | Care Team | Description | +--------+ + + + + | 02/08/ | Telephone | [facility] | Jarvis Dawson, | Referral ([place]) | | 2019 | | NEUROLOGY JAXSON | MD [place] | | | | | [address] [facility], | [place] [address] | | | | | [address] [place] | [place] | | | | | [place] [address] | [address] | | | | | [phone] | | | +--------+ + + + [...] Telephone Encounter - Palma Silva RN - 02/08/2019 9:19 AM PDTPlaced referral for speech therapy. Electronically signed by: Palma Silva RN 02/08/2019 9:22 ----- Message from Jarivs Dawson MD sent at 02/07/2019 11:44 PDT ----- Refer to speech therapist for swallow evaluation. documented in th is encounter Plan of Treatment + + +--------+ + + | Name | Type | Priori | Associated Diagnoses | Order Schedule | | | | ty | | | + + +--------+ + + | * MARTIN MARIN | Outpatient | Routin | Parkinson's | Ordered: 02/08/2019 | | Jaxson Speech | Referral | e | disease [...]
--- OUTSIDE RECORDS SUMMARY | ~2020-07-14 | XMS | Encounter Summary ---
Demographics + + + | Address | [address] | | | [place] [address] | + + + | Home Phone [...] Author | [facility] | [...] [place], [place] | | | | | [address] | | + + + + + | Mao Rea | ECON | Unknown | | + + + + + | Meredith Rea | ECON | Unknown | | + + + + + Care Team Providers + +------+ + | Care Communications Strategist Name | Role | Phone | + +------+ + | Brandon Juarez MD | PCP | | + +------+ + Encounter Details +--------+ + + + + | Date | Type | Department | Care Team | Description | +--------+ + + + + | 11/27/ | Preadmit | [facility] | Koby George MD | Sleep apnea, | | 2014 | Visit | [facility] | [address] | obstructive; | | | | CLINIC [address] | [place] [address] | Essential | | | | [place], [place] | [phone] | hypertension, | | | | [address] | | benign; Fatigue; | | | | | | Cancer [...] + | MISCELLANEOUS LAB | | | [phone] | + +---------+ + + | MISCELANIOUS LAB | | | [phone] | + +---------+ + + CBC with [...] | Cells | | M/uL | [facility] | [...] + | [facility] | [address] | [place], [place] | [phone] | | [facility] | | [address] | | | - LABORATORY | | | | + + + + + | [facility] | [address] | [place] | | | [facility] | | [address] [place] [address] | | | - LABORATORY | | [...] 14 | 7 - 18 mg/dL | [facility] | | | | | | [facility] | | | | | | MEDICAL | | | | | | CENTER - | | | | | | LABORATORY | | + + + + + + | Creatinine | 0.75 | 0.60 - 1.30 | [facility] | | | | | mg/dL | [facility] | | | | | | MEDICAL | | | | | | CENTER - | | | | | | LABORATORY | | + + + + + + | eGFR, | >60Comment: GLOMERULAR | >=60 | [facility] | | | non- | FILTRATION | mL/min/1.73m2 | [facility] | | | Turkmen | RATE,ESTIMATED | | MEDICAL | | | | mL/min/1.02d0Ujri than | | CENTER - | | [...] | | | | | mg/dL | [facility] | | | | [...] + | [facility] | [address] | [place], [place] | [phone] | | [facility] | | [address] | | | - LABORATORY | | | | + + + + + | [facility] | [address] | [place], [place] | | | [facility] | | [address], [facility] | | | - LABORATORY | [...]
--- OUTSIDE RECORDS SUMMARY | ~2020-07-14 | XMS | Encounter Summary ---
Demographics + + + | Address | [address] | | | [place] [address] | + + + | Home Phone [...] | Author | [facility] | | | and [place] | + + + | Organization | [facility] | | [...] [place] | | | | | [address] | | + + + + + | Mao Rea | ECON | Unknown | | + + + + + | Meredith Rea | ECON | Unknown | | + + + + + Care Team Providers + +------+ + | Care Golf Course Assistant Name | Role | Phone | [...] | | | | [address] | [place] [address] | | | | | [place] [address] | | | | | | [phone] | | | +--------+ + + + [...]
--- OUTSIDE RECORDS SUMMARY | ~2020-07-14 | XMS | Encounter Summary ---
Demographics + + + | Address | [address] | | | [place] [address] | + + + | Home Phone [...] Author | [facility] | | | and [place] [...] [place] | | | | | [address] | | + + + + + | Mao Rea | ECON | Unknown | | + + + + + | Meredith Rea | ECON | Unknown | | + + + + + Care Team Providers + +------+ + | Care Managing Member Name | Role | Phone | + +------+ + | Sherie Vela PA-C | ENA | | + +------+ + Encounter Details +--------+ + + + + | Date | Type | Department | Care Team | Description | +--------+ + + + + | 02/21/ | Imaging | [facility] | Provider, | | | 2018 | Exam | [facility] | MD [address] | | | | | IMAGING [address] | [address] | | | | | [address] | [place] [address] | | | | | [place] [address] | | | | | | [phone] | | | +--------+ + + + [...]
--- OUTSIDE RECORDS SUMMARY | ~2020-07-14 | XMS | Encounter Summary ---
Demographics + + + | Address | [address] | | | [place] [address] | + + + | Home Phone [...] + | Author | [facility] | [...] [place] | | | | | [address] | | + + + + + | Mao Rea | ECON | Unknown | | + + + + + | Meredith Rea | ECON | Unknown | | + + + + + Care Team Providers + +------+ + | Care Cold Roll Catcher Name | Role | Phone | + +------+ + | Sherie Vela PA-C | ENA | | + +------+ + Encounter Details +--------+ + + + + | Date | Type | Department | Care Team | Description | +--------+ + + + + | 01/04/ | Imaging | [facility] | Provider, | | | 2019 | Exam | [facility]TER[facility] | MD [address] | | | | | IMAGING [address] | [address] | | | | | [place] | [place] [address] | | | | | [place] [address] | | | | | | [phone] | | | +--------+ + + + [...]
--- OUTSIDE RECORDS SUMMARY | ~2020-07-14 | XMS | Encounter Summary ---
Demographics + + + | Address | [address] | | | [place] [address] | + + + | Home Phone | | + + + | Preferred Language | Unknown | + + + | Marital Status | | + + + | Quaker Affiliation | Unknown | + + + | Race | White | + + + | Ethnic Group | Not or | + + + Author + + + | Author | [facility] | | | and [place] | + + + | Organization | [facility] | | | and [...] [place], [place] | | | | | [address] | | + + + + + | Mao Rea | ECON | Unknown | | + + + + + | Meredith Rea | ECON | Unknown | | + + + + + Care Team Providers + +------+ + | Care Optics Manufacturing Technician Name | Role | Phone | + +------+ + | Brandon Juarez MD | PCP | | + +------+ + Reason for Visit + +--------+ + | Reason | Onset | Comments | | | Date | | + +--------+ + | Post Op | 02/28/ | PO Call | | | 2016 | | + +--------+ + | Medication Refill | 02/28/ | | | | 2016 | | + +--------+ + Encounter Details +--------+ + + + + | Date | Type | Department | Care Team | Description | +--------+ + + + + | 02/28/ | Telephone | [facility] | Koby George MD | Post Op (PO Call); | | 2016 | | NEUROSURGERY [address] | [address] | Medication Refill | | | | [address] | [place] [address] | | | | | [place] | [phone] | | | | | [address] | | | | | | [phone] | | | +--------+ + + + [...] Telephone Encounter - Jaquelin Mars RN - 03/01/2017 10:09 AM PDTAdhung Henny per note below. Discussed recording medication with each dose and after pain is under control and be ing consistently managed to tolerable level, ok to decrease to 10 mg again and waiting an ho ur to see if additional 5 mg is needed. Cautioned to watch for excessive sedation and patie nt should be alert, responsive and able to ambulate frequently during the day. If too sedat ed for this level of responsiveness and activity to decrease pain medication and muscle rela xant. Henny verbalized understanding and agreement. elephone Encounter - Ender Mora PA-C - 03/01/2017 10:06 AM PDTIt would be fine if the patient used up to 15 mg of oxycodone every 4 hours as needed for pain. They should be cautious regarding possible excessive sedation. When the homero velarde was in the hospital he was fairly sedated the first day. It was unclear whether his sedation was secondary to some of the muscle relaxants or IV pain medication or whether it w as the oral pain medication. I suspect it was secondary to the IV medication. I think he w ill tolerate up to 15 mg of oxycodone but they should be cautious. elephone Encounter - Jaquelin Mars R N - 03/01/2017 8:33 AM PDTBetamar called with concern that patient's pain has remained 6-810 and he is not getting adequate relief of pain on oxycodone 10 mg every 4 hours and methocar bamol 750 mg every 6 hours. Henny asked if ok to increase dose of pain medication for the n ext few days to try to get pain under control. Advised Henny message will be sent to PA to advise further and if patient's pain becomes intolerable to take him to [facility] for additional p ain control. Henny verbalized understanding. elephone Airam - Jaquelin Mars RN - 02/28/2017 2:04 PM PDT SpouseHenny, notified Rx approved and being sent US Certified Mail # [phone] elephone Ender Servin PA-C - 02/28/2017 1:22 PM PDTapproved elephone Airam - Jaquelin Mars RN - 02/28/2017 12:04 PM PDTProcedure: L5-S1 Transforaminal Lumbar Interbody Fusion, Hardware Revision @ L2-3, L3-4, L4-5 Date of Surgery: 02/23/2017 1. How are you feeling-if pain where (legs/surgical site)? Frey out today with PCP appoin tment; able to urinate without difficulty; Strength coming back; ambulating 2. Weakness/Numbness (New onset)? No 3.Taking pain meds (Name/Dosage)? Oxycodone 10 mg every 4 hours; Pharmacist had to fill 10 mg tablets, 1/2 to 1 tablet every 4 hours as needed per insurance requirements 4.Loss of Bowel or Bladder (When/Chronic)? No Constipation? 2 BMs since discharge; taking lactulose once daily 5.Ambulating (How often)? At least every 30-45 minutes SURGICAL ISSUES 1.Steri-strips/outer bandages intact. Advised ok to remove outer bandages and to leave inc ision uncovered, even for showers. If patient prefers to have marilu covered, to keep woun d clean and dry/ change bandage and check wound at least daily; Remove any remaining steri s trips at 2 weeks post op. Marilu/sutures that need to be removed yes. Operative note revi ewed yes. 2.Appearance of the site? Has not checked, but no redness or swelling around; Advised to w [facility] for increased redness, swelling, heat, drainage or edges of incision not healing well t ogether and to call for wound check with any concerns. Is there drainage from the site? no. 3.Do you have a fever? yes. If yes, most recent temperature: 100.1 on Tuesday, resolved with Tylenol and has not returned. Confirmed patient is using IS; encouraged continued use and/ or several slow, deep breaths to encourage full inflation of lungs every couple of maine rs. 4.Follow up appointments? Not yet scheduled- message sent to [place] to call patient/ spouse to schedule 4 week and 12 week PO appointments Staple/suture removal nurse visit? Scheduled during call, 03/08/2017 @ 1100 with Annika reyes RN, check in by 1044 5.What could we have done to make your visit better? "Nothing I can think of." 6. Has preoperative pain improved? No pain down legs 7 days oxycodone left. Requesting refill at this time. Order not attached; please change dose of tablets/sig as noted for insurance to cover cost per pharmacist. (10 mg tablets, 1/ 2-1 tablet every 4 hours PRN) Send US Certified Mail. All questions answered at this time.Electronically signed by Jaquelin Mars RN at 017 12:27 PM PDTdocumented in this encounter Plan of Treatment Not on filedocumented as of this encounter Visit Diagnoses Not on filedocumented in this encounter
--- OUTSIDE RECORDS SUMMARY | ~2020-07-14 | XMS | Encounter Summary ---
Demographics + + + | Address | [address] | | | [place] [address] | + + + | Home Phone [...] Author | [facility] | [...] [place] | | | | | [address] | | + + + + + | Mao Rea | ECON | Unknown | | + + + + + | Meredith Rea | ECON | Unknown | | + + + + + Care Team Providers + +------+ + | Care Hydrogen Braze Furnace Operator Name | Role | Phone | + +------+ + | Sherie Vela PA-C | PCP | | + +------+ + Reason for Visit + + + | Reason | Comments | + + + | Therapy Daily | | | Treatment | | + + + | Therapy Discharge | | + + + Evaluate & Treat (Routine) + +--------+ + + + + | Status | Reason | Specialty | Diagnoses / | Referred By | Referred To | | | | | Procedures | Contact | Contact | + +--------+ + + + + | Authorized | | Rehabilitatio | Diagnoses | Sushma, | [facility] | | | | n | Parkinson's | Murphy | [place] | | | | | disease | MD Milo | Therapy 1025 | | | | | ([facility]) G20 | [address] | [address] | | | | | Dmitry | [address] | [place], | | | | | ALLERGIST/IMMUNOLOGIST PHYSICIAN | [place], | [place] [address] | | | | | | [place] [address] | Phone: | | | | | | Phone: | [phone] | | | | | | [phone] | Fax: | | | | | | Fax: | [phone] | | | | | | [phone] | | + +--------+ + + + + Encounter Details +--------+---------+ + + + | Date | Type | Department | Care Team | Description | +--------+---------+ + + + | 07/10/ | Office | [facility] | Winnie Merino, | Cognitive | | 2020 | Visit | [facility] | Speech Pathologist | communication | | | | [address] | | disorder | | | | [place] | | | | | | [address] | | | | | | [phone] | | | +--------+---------+ + + + [...] documented as of this encounter Progress Notes Milena Orozco - 07/10/2020 2:00 PM PDTDischarge notes do not need PCP co signature- oseas martines out of work queue. Winnie Merino, Speech Pathologist - 07/10/2020 2:00 PM PDT [facility] [address] [place] [id number] Speech Therapy Discharge Note Date: 07/10/2020 Patient Information Patient Name: Uziel Rea Date of : 1945 Age: 75 y.o. History 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 Date of Onset: 04/18/2020 Referring Provider: Murphy Ordaz MD Rehab Precautions Office Visit from 04/18/2020 in [facility] Rehab Precautions Precautions Comments Depression/mental health Hx Rehab Learning Style Office Visit from 04/18/2020 in [facility] Learning Style Patient's [employer] Learning Style reading [written information] Subjective Uziel has completed 12 therapy visits for treatment of cognitive-communication impairment. P syd reports improved quality of life, task initiation, thought organization, recall, use of communication devices and states that he is planning to continue use of established exter nal aids with assistance from spouse as needed. Pain Assessment: Pain Rating Pre Assessment: 7 Location: bilateral hands; RA, knees, lower back, right hip Objective: Functional gains in cognitive-communication demonstrated, and new learning possi ble with utilization of spaced retrieval to improve use of communication devices e.g. emails , phone calls. Demonstrated functional use of email and phone use independently in 3 of 3 gi trinity opportunities. Assessment Patient initially presented to speech therapy with complaints of difficulty with memory a nd communication . Patient reports and demonstrates improved task initiation, communication with family and spouse, decreased frustration with cognitive tasks, and overall improved chace lity of life. Patient has demonstrated functional use with memory notebook and external bandar ry aids to improve recall and thought organization, and new ability to participate in new le arning to improve communication with use of Ipad and Iphone. Rehabilitation potential: Patient demonstrates excellent potential to achieve established g oals to address the documented impairments by participating in skilled speech and language t herapy services. Goals: Additional ALLERGIST/IMMUNOLOGIST PHYSICIAN Goals Goal 1: Pt will demonstrate understanding and use of memory notebook to improve recall, and communication Goal 1 Status: MET Goal 2: Patients will verbalize understanding of functional use of memory notebook and how to assist patient with use to improve communication and recall. Goal 2 Status: MET Goal 3: Patient will demonstrate ability to recall a 3 step sequence with the use of spaced retrieval with 8 min delay. Goal 3 Status: MET Goal 4: Patient will independently recall steps to send email to improve communication with written notes as needed. Goal 4 Status: MET Goal 5: Patient will demonstrate functional use of phone to make phone calls and send e-reg ls independently in 8 of 10 given opportunities. Goal 5 Status: MET Plan Date of Onset: 04/18/2020 Start of Care Date: 04/18/2020 Requested # of Visits: 13 visits 1x/week for 1xweek for 13 weeks Certification From: 04/18/2020 Certification To: 07/17/2020 Treatment Plan/Interventions [address]2511 - Cognitive [id number] Interventions for Cog Fxn Patient and/or family has indicated understanding of treatment needs and actively participa david in the creation of this plan for care. Today's Treatment Start Time: 1400 Stop time: 1428 Duration: 28 minutes Timed Treatment Codes: 15 minutes # of Speech Visits to Date: 12 Objective: Education provided on cognitive-communication gains, goals met, and continued us e of memory notebook and external systems to maintain improved overall cognitive-communicati on. Next Visit: Discharge to continued use of external systems and new learning. Electronically signed by: Winnie Merino Speech Pathologist, 07/10/2020 4:31 PM PDT Patient Name: Uziel Rea/: 1945/ doc umented in this encounter Plan of Treatment Not on filedocumented as of this encounter Visit Diagnoses + + | Diagnosis | + + | Cognitive communication disorder | + + documented in this encounter"
[~2020-07-14 11:17] MED LIST changes: +GABAPENTIN400 MG PO; -GABAPENTIN800 MG PO
--- OUTSIDE RECORDS SUMMARY | 2020-07-14 11:20 | XMS ---
PreManage Notification: RACHEL FELIZ Security Motorcycle Deliverer Events No recent Security Events currently on file CRITERIA MET - [facility] [facility] ADAM LESLIE Physician Mechanical Maintenance 12/22/2018-Current PHONE: Unknown April has no Care Guidelines for this patient. EScooby VISIT COUNT (12 MO.) 2 RAHEEM Wu TOTAL 2 NOTE: Visits indicate total known visits. ED/UCC VISIT TRACKING (12 MO.) 07/14/2020 11:18 RAHEEM [place] TYPE: Emergency COMPLAINT: - CHEST PAIN, FEET SWELLING 09/09/2019 13:53 RAHEEM Gilbert [place] TYPE: Emergency COMPLAINT: - BACK PAIN DIAGNOSES: - Sleep apnea, unspecified - Hypothyroidism, unspecified - Pure hypercholesterolemia, unspecified - Essential (primary) hypertension - Low back pain - Other chronic pain - Major depressive disorder, single episode, unspecified - Other ferry terminal agent (current) drug therapy INPATIENT VISIT TRACKING (12 MO.) 12/02/2019 15:00 Jihan MARIN TYPE: Rehab COMPLAINT: - PSEUDARTHROSIS L5-S1,STENOSIS L1-L2 11/29/2019 05:39 Jihan MARIN TYPE: Inpatient COMPLAINT: - PSEUDARTHROSIS L5-S1,STENOSIS L1-L2 10/12/2019 14:23 Jihan MARIN TYPE: Rehab COMPLAINT: - THORACIC AND LUMBAR SPONDYLOSIS WITH RADICULOPATHY 10/10/2019 17:26 Jihan MARIN TYPE: Intensive Care COMPLAINT: - THORACIC AND LUMBAR SPONDYLOSIS WITH RADICULOPATHY [email or web address]
[2020-07-14] MEDS ORDERED: XELJANZ5 MG PO (13:49)
[2020-07-14] MEDS ORDERED: METHYLCOBAL10000 MCG PO (14:22)
[2020-07-14] MEDS ORDERED: PREDNISONE5 MG PO (14:23)
[2020-07-14] MEDS ORDERED: VITAMIN D3 COM1 EACH PO (14:25)
[2020-07-14] MEDS ORDERED: TRAZODONE HCL50 MG PO (14:26)
[2020-07-14] MEDS ORDERED: NUCYNTA100 MG PO (14:26)
[2020-07-14] MEDS ORDERED: COENZYME Q-1030 MG PO (14:28)
--- NOTE | 2020-07-15 14:02 | EKG ---
[facility] [address] [facility] [place], [place] [address] Signed Normal sinus rhythm Normal ECG No previous ECGs available Confirmed by EDMUNDO MARKS DO ([id number]) on 07/15/2020 2:02:12 PM Electronically Signed By: EDMUNDO MARKS DO 07/15/20 1402 PATIENT NAME: RACHEL FELIZ FERCHO Electrocardiogram DATE OF : 47 PHYSICIAN: EDMUNDO MARKS DO REPORT #: [id number] REPORT IS CONFIDENTIAL AND NOT TO BE RELEASED WITHOUT AUTHORIZATION
== END 2020-07-14 16:22 | disposition home or self-care (01) ==
LOC: ED 11:17
DX: R07.9 Chest pain, unspecified (principal); R10.11 Right upper quadrant pain; R10.12 Left upper quadrant pain; F32.9 Major depressive disorder, single episode, unspecified; E03.9 Hypothyroidism, unspecified; G47.30 Sleep apnea, unspecified; I10 Essential (primary) hypertension; G20 Parkinson's disease; Z79.899 Other long term (current) drug therapy; Z79.52 Long term (current) use of systemic steroids; Z85.038 Personal history of other malignant neoplasm of large intestine
CPT/HCPCS: 71045; 80053; 83735; 83880; 84484; 85025; 93005; 93010; 99285-25

== ENCOUNTER 2021-05-06 13:49 | Observation (INO) | payer MEDICARE, OTHER ==
[~2021-05-06] VITALS: Ht 172.7 cm; Wt 87.2 kg
[~2021-05-06 13:49] MED LIST changes: -CALCIUM 600 +1 EAC1 PO; +CALCIUM 600 +1 EAC4 PO; +COENZYME Q-1030 MG PO; -LITHIUM CARBON300 M1 PO; +LITHOBID300 MG PO; +METHYLCOBAL10000 MCG PO; +NUCYNTA100 MG PO; +PREDNISONE5 MG PO; +TRAZODONE HCL100 MG PO; +VITAMIN D3 COM1 EACH PO; +XELJANZ5 MG PO
--- OUTSIDE RECORDS SUMMARY | 2021-05-06 13:52 | XMS ---
PreManage Notification: RACHEL FELIZ Security Mine Engineering Superintendent Events No recent Security Events currently on file CRITERIA MET - PDMP CARE PROVIDERS ADAM LESLIE Physician Audio Visual Secretary 12/22/2018-Current PHONE: Unknown April has no Care Guidelines for this patient. EScooby VISIT COUNT (12 MO.) 2 RAHEEM Wu TOTAL 2 NOTE: Visits indicate total known visits. ED/UCC VISIT TRACKING (12 MO.) 05/06/2021 13:50 RAHEEM [place] TYPE: Emergency COMPLAINT: - BACK PAIN, DISORIENTED, FATIGUE, DIARRHEA 07/14/2020 11:18 RAHEEM [place] TYPE: Emergency COMPLAINT: - CHEST PAIN, FEET SWELLING DIAGNOSES: - [facility] (current) use of systemic steroids - Major depressive disorder, single episode, unspecified - Parkinson's disease - Chest pain, unspecified - Left upper quadrant pain - Essential (primary) hypertension - Personal history of other malignant neoplasm of large intestine - Hypothyroidism, unspecified - Right upper quadrant pain - Sleep apnea, unspecified - Other termination clerk (current) drug therapy INPATIENT VISIT TRACKING (12 MO.) 09/01/2020 05:48 Susy MARIN TYPE: Inpatient [email or web address]
[2021-05-06] MEDS ORDERED: L-METHYLFOLATE15 MG PO (14:07)
[2021-05-06] MEDS ORDERED: DULCOLAX5 MG PO (14:08)
[2021-05-06] MEDS ORDERED: TRAMADOL HCL E300 MG PO (14:09)
[2021-05-06] MEDS ORDERED: ARICEPT10 MG PO (14:11)
[2021-05-06] MEDS ORDERED: MINIPRESS5 MG PO (14:12)
--- NOTE | 2021-05-06 21:59 | NUR ---
Pt ARRIVES TO [facility] VIA STRETCHER. AMBULATORY TO RESTROOM FOR VOID AND BACK TO BED. WITH PATIENT. PATIENT C/O NAUSEA, PRN NAUSEA MEDICATION ADMINISTERED. pt NOW EATING APPLESAUCE, DRINKING SPRITE. PRIMARY RN LUNA IN ROOM. IV SITES FLUSHED WNL, IVF BOLUS INFUSING ORDERED. ORIENTATION TO ROOM PROVIDED. CALL LIGHT IN REACH. BED ALARM ON FOR SAFETY. TELE [address], SR.
--- NOTE | 2021-05-06 23:04 | NUR ---
CALLED [facility] IS NOT AVAILABLE AT THIS TIME. DR. GIBSON WAS OK WITH SKIPPING THE DOSE FOR TONIGHT AND LETTING PHARMACY DEAL WITH IT IN THE MORNING.
--- NOTE | 2021-05-06 23:22 | NUR ---
CALL LIGHT ANSWERED. SBA TO RESTROOM FOR VOID. pt REFUSES OXYGEN, SPO2 DROPS TO 72% ON RA. BACK IN BED, BIPAP ON pt. SPO2 INCREASES TO 92%. pt AGREES TO WEAR OXYGEN WHEN OUT OF BED NEXT TIME, EDUCATION PROVIDED. CALL LIGHT IN REACH.
--- NOTE | 2021-05-06 23:58 | NUR ---
PATIENT'S NAUSEA WAS RELIEVED FROM ZOFRAN IV GIVEN BY ELENA MACARIO. PATIENT ABLE TO TAKE ALL PO MEDS AND DRINK THE MIRALAX ORDERED FOR HIS CONSTIPATION WITHOUT ANY DIFFICULTY OR RETURN OF NAUSEA. NORCO GIVEN WITH PM [facility] HAS HELPED TO KEEP PATIENT'S CHRONIC BACK PAIN BETWEEN 5-6/10 AND HE SAYS HIS NORMAL TOLERABLE PAIN IS 5-7/10. PATIENT GOT UP TWICE WITH 1PSBA AND FWW. ONCE TO VOID AND ONCE HE JUST HAD SOME GAS PAINS AND VOIDED BUT MISSED THE URINE HAT. PATIENT HAS A REDDEND COCCYX FROM SOME DRIED STOOL THAT WAS IN THE GLUTEAL FOLD AT THE COCCYX. THIS WAS CLEANED AND SKIN WAS INTACT, BUT AN ALLEVYN WAS PLACED FOR PROTECTION. PATIENT'S IV BOLUS IS COMPLETE AND REGULAR FLUIDS ARE NOW RUNNING. CALL LIGHT IS REACH AND BED ALARM IS ON.
--- NOTE | 2021-05-07 01:50 | NUR ---
Patient tried getting out of bed on own. Bed alarm was activated. Assisted patient to bathroom. Changed gown, socks, and depend. Provided patient with fresh ice water, vitals, Is, and Os were charted. White board was updated. Call light left within reach. No other immediate concerns at this time.
--- NOTE | 2021-05-07 01:54 | NUR ---
PATIENT BACK TO BED ADTER GOING TO THE RESTROOM WITH 1PSBA ASSIST AND FWW. PATIENT HAD 2 LIQUID STOOLS AND A LOT OF GAS. KEVIN MC ASSISTING WITH CARE IN ROOM. PATIENT HAS NEW ATTENDS ON AND HAS ALREADY TAKEN 1AM MED. PATIENT'S BED ALARM ON AND ICE WATER REFILLED. PATIENT HAD NO OTHER CARE NEEDS AT THIS TIME.
--- NOTE | 2021-05-07 02:49 | NUR ---
PATIENT JUST UP TO THE BATHROOM AND BACK TO BED 1PSBA AND 4WW. KEVIN MC IN ROOM ASSISTING. PATIENT HAD ANOTHER LIQUID STOOL AND NEW ATTENDS ARE IN PLACE. CALL LIGHT IN REACH AND BED ALARM ON. NO OTHER CARE NEEDS AT THIS TIME.
--- NOTE | 2021-05-07 03:20 | NUR ---
PATIENT UP TO THE BATHROOM AND BACK TO BED WITH 1PSBA AND FWW WITH KEVIN MC ASSISTING THIS RN IN ROOM. PATIENT HAD ANOTHER LIQUID STOOL AND PATIENT WASHED UP, BARRIER CREAM PLACED ON PATIENT'S BACK SIDE, NEW ATTENDS ON. PATIENT HAS NO OTHER CARE NEEDS AT THIS TIME. BED ALARM IS ON AND CALL LIGHT YARON MARTIN.
--- NOTE | 2021-05-07 06:02 | NUR ---
PATIENT TOOK ALL STOOL BOWEL MEDS ORDERED AND HAS NOW HAD 4 LIQUID STOOLS THIS SHIFT. PATIENT ALERT AND ORIENTED ON ARRIVAL AND THROUGH THE NIGHT UNTIL HE WAS AWOKEN FOR VS AND ASSESSMENT AND HE DID NOT KNOW WHERE HE WAS OR WHAT WAS GOING ON, BUT THIS QUICKLY CLEARED WITHIN A FEW MINUTES. PATIENT VERBALIZES THAT THIS HAPPENS IN THE MORNING SOME TIMES.B/P IMPROVED AFTER ARRIVAL AND PATIENT GOT5 HIS B/P MEDICATIONS AND IT IS NOW WNL. OTHER VS STABLE. PATIENT REMAINS ON TELE#8 IN SR. PATIENT GOT 1 NRCO ON ARRIVAL FOR BACK PAIN AND THIS WAS JUST REPEATED FOR CHRONIC BACK PAIN NOW AT 7/10. PATIENT'S ICE WATER IS REFILLED AND PATIENT HAS NO OTHER CARE NEEDS AT THIS TIME. CALL LIGHT IN REACH.
--- NOTE | 2021-05-07 07:10 | NUR ---
Report from Giovany Hernandez RN.
--- NOTE | 2021-05-07 07:30 | NUR ---
Shift report recieved from ELENA Chatterjee. Pt resting in safely w/ call light in reach and bed alarm on. Pt denies any other needs at this time, whiteboard updated.
--- NOTE | 2021-05-07 07:47 | NUR ---
Assist to sit up for breakfast. Denies pain or discomfort at this time. Call light in reach.
--- NOTE | 2021-05-07 09:00 | NUR ---
Pt sitting up in bed eating breakfast, pt given a cup of coffee per request. Morning meds administered per provider order. Pt asked for his inhaler but there is no order for one, med list requested and recieved from pt's pharmacy, and provider notified. Morning assesment and care plan evaluation complete. Pt's in room, pt denies any other needs at this time call light in reach and bed alarm on.
--- NOTE | 2021-05-07 09:30 | NUR ---
Pt finished working w/ PT, requesting pain medication for 8/10 pain in lower back. Pt sitting up in chair safely w/ call light in reach and in room. PRN pain medication admninstered per pt request/provider order.
--- NOTE | 2021-05-07 09:30 | NUR ---
Spoke with pt and . Pt has Parkinson's and was gone the last couple of days, pt became dehydrated. states [facility] Pt qualifies for 12 hours per week for in home care and 6 hours a week of respite. Gave her a brochure for [facility] to hire for respite care. feels they have all the DME they need. Pt worked with PT and PT feels he is walking well and able to dc to home. and pt both state they feel safe for pt to go home today. has hired a neighbor to be pt's caregiver and denies any need with assist with contacting the [facility]. states they are working with [facility] for cg service also. Plans to dc to home today.
[2021-05-07] MEDS ORDERED: CYMBALTA30 MG PO (09:41)
[2021-05-07] MEDS ORDERED: CARISOPRODOL350 MG PO (09:41)
--- NOTE | 2021-05-07 10:00 | NUR ---
Pt sitting up in chair, VSS on RA, Case Management in room discussing discharge needs and plan. Call light in reach and in room.
[2021-05-07] MEDS ORDERED: FLOVENT HFA12 GM INH (11:08)
[2021-05-07] MEDS ORDERED: NEURONTIN300 MG PO (11:15)
[2021-05-07] MEDS ORDERED: XOPENEX HFA15 GM INH (11:17)
[2021-05-07] MEDS ORDERED: FOLIC ACID1 MG PO (11:18)
[2021-05-07] MEDS ORDERED: VITAMIN D350 MC3 PO (11:22)
[2021-05-07] MEDS ORDERED: MELATONIN10 M2 PO (11:23)
[2021-05-07] MEDS ORDERED: CITRACAL + D M1 EACH PO (11:24)
[2021-05-07] MEDS ORDERED: HYDROCODON-ACE1 EAC8 PO (11:26)
[2021-05-07] MEDS ORDERED: RINVOQ ER15 MG PO (11:27)
[2021-05-07] MEDS ORDERED: DULCOLAX5 MG PO (12:01)
[2021-05-07] MEDS ORDERED: MIRALAX17 GM PO (12:03)
[2021-05-07] MEDS ORDERED: LACTULOSE10 GM/152 PO (12:04)
[2021-05-07] MEDS ORDERED: LITHOBID300 MG PO (13:03)
--- NOTE | 2021-05-07 13:30 | NUR ---
Pt and given discharge instruction, as well as discharge packet and education packets. All questions and concerns answered. VSS on RA, both IV's removed and dressed w/ [place] pt educated on removal and post care of IV sites. Tele discontinued and strips printed and placed in pt's chart. Pt assisted to front via w/c and transfered into personal vehicle w/ driving.
--- NOTE | 2021-05-07 13:49 | NUR ---
CONNECTED WITH PT HE WAS AMBULATING IN [place] WITH KEVIN JOHNSON. GAVE ENCOURAGEMENT, PT SEEMED RELAXED AND RESPONDED FAVORABLY. GAVE BLESSING WILL FOLLOW NEEDED
--- NOTE | 2021-05-08 08:50 | EKG ---
[facility] [address] [place], [place] [address] Signed Normal sinus rhythm Normal ECG When compared with ECG of 14-JUL-2020 11:24, No significant change was found Confirmed by ANA GIBSON MD ([id number]) on 05/08/2021 8:50:22 AM Electronically Signed By: ANA GIBSON MD 05/08/21 0850 PATIENT NAME: RADHA FELIZSuresh BRANTLEY Electrocardiogram DATE OF : 47 PHYSICIAN: ANA GIBSON MD REPORT #: [id number] REPORT IS CONFIDENTIAL AND NOT TO BE RELEASED WITHOUT AUTHORIZATION
== END 2021-05-07 13:30 | disposition home or self-care (01) ==
LOC: ED 13:49 → MS 13:51
PROVIDERS: ADMIT Internal Medicine; ATTEND Internal Medicine
DX: I95.1 Orthostatic hypotension (principal); E86.0 Dehydration; K59.03 Drug induced constipation; T40.2X5A Adverse effect of other opioids, initial encounter; K56.699 Other intestinal obstruction unspecified as to partial versus complete obstruction; R03.0 Elevated blood-pressure reading, without diagnosis of hypertension; G89.4 Chronic pain syndrome; M54.5 Low back pain; G20 Parkinson's disease; F02.80 Dementia in other diseases classified elsewhere, unspecified severity, without behavioral disturbance, psychotic disturbance, mood disturbance, and anxiety; M06.9 Rheumatoid arthritis, unspecified; F39 Unspecified mood [affective] disorder; F51.05 Insomnia due to other mental disorder; E03.9 Hypothyroidism, unspecified; K21.9 Gastro-esophageal reflux disease without esophagitis; E78.00 Pure hypercholesterolemia, unspecified; G47.30 Sleep apnea, unspecified; J45.909 Unspecified asthma, uncomplicated; Z79.891 Long term (current) use of opiate analgesic; Z85.038 Personal history of other malignant neoplasm of large intestine; Z87.891 Personal history of nicotine dependence; Z98.1 Arthrodesis status; Z20.822 Contact with and (suspected) exposure to COVID-19
CPT/HCPCS: 70450; 71045; 71260; 74177; 80053; 80178; 81001; 83690; 83735; 84484; 85025; 93005; 93010; 96372; 96376; 97162; 99285-25; G0378; J1650; J2270; J2405; J2765; J7030; J7121; J7512; Q9967; U0003

== ENCOUNTER 2021-06-03 08:19 | Emergency (ER) | payer MEDICARE, OTHER ==
[~2021-06-03] VITALS: Ht 172.7 cm; Wt 95.2 kg
[~2021-06-03 08:19] MED LIST changes: +ARICEPT10 MG PO; +CARISOPRODOL350 MG PO; +CITRACAL + D M1 EACH PO; +CYMBALTA30 MG PO; +DULCOLAX5 MG PO; +FLOVENT HFA12 GM INH; +FOLIC ACID1 MG PO; +HYDROCODON-ACE1 EAC8 PO; +L-METHYLFOLATE15 MG PO; +LACTULOSE10 GM/152 PO; +MELATONIN10 M2 PO; +MINIPRESS1 MG PO; +NEURONTIN300 MG PO; +RINVOQ ER15 MG PO; +TRAMADOL HCL E300 MG PO; +VITAMIN D350 MC3 PO; +XOPENEX HFA15 GM INH
--- OUTSIDE RECORDS SUMMARY | 2021-06-03 08:22 | XMS ---
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 EScooby VISIT COUNT (12 MO.) 3 [facility] TOTAL 3 NOTE: Visits indicate total known visits. ED/UCC VISIT TRACKING (12 MO.) 06/03/2021 08:19 [facility] [place] TYPE: Emergency COMPLAINT: - GLF, BACK PAIN 05/06/2021 13:50 [facility] [place] TYPE: Emergency COMPLAINT: - BACK PAIN, DISORIENTED, FATIGUE, DIARRHEA 07/14/2020 11:18 [facility] [place] TYPE: Emergency COMPLAINT: - CHEST PAIN, FEET SWELLING DIAGNOSES: - halfway (current) use of systemic steroids - Major depressive disorder, single episode, unspecified - Parkinson's disease - Chest pain, unspecified - Left upper quadrant pain - Essential (primary) hypertension - Personal history of other malignant neoplasm of large intestine - Hypothyroidism, unspecified - Right upper quadrant pain - Sleep apnea, unspecified - Other alf (current) drug therapy INPATIENT VISIT TRACKING (12 MO.) 05/06/2021 13:51 [facility] [place] TYPE: Observation COMPLAINT: - SYNCOPE DIAGNOSES: - Chronic pain syndrome - Unspecified mood [affective] disorder - Unspecified asthma, uncomplicated - Insomnia due to other mental disorder - Low back pain - Personal history of other malignant neoplasm of large intestine - Adverse effect of other opioids, initial encounter - Dementia in other diseases classified elsewhere without behavioral disturbance - Arthrodesis status - Pure hypercholesterolemia, unspecified - Syncope and collapse - Orthostatic hypotension - Elevated blood-pressure reading, without diagnosis of hypertension - meterman (current) use of opiate analgesic - Gastro-esophageal reflux disease without esophagitis - Hypothyroidism, unspecified - Rheumatoid arthritis, unspecified - Other intestinal obstruction unspecified as to partial versus complete obstruction - Sleep apnea, unspecified - Parkinson's disease - Dehydration - Drug induced constipation - Personal history of nicotine dependence 09/01/2020 05:48 Susy Stone [place] TYPE: Inpatient [id number]
[2021-06-03] MEDS ORDERED: SINEMET 25-1001 EACH PO (11:28)
[2021-06-03] MEDS ORDERED: K-TAB ER20 MEQ PO (12:45)
[2021-06-03] MEDS ORDERED: LASIX20 MG PO (12:45)
--- NOTE | 2021-06-03 14:25 | EKG ---
[facility] [address] [place], [place] [address] Signed Normal sinus rhythm Normal ECG No previous ECGs available Confirmed by ANDRES CRSEPO MD ([id number]) on 06/03/2021 2:25:40 PM Electronically Signed By: ANDRES CRESPO MD 06/03/21 1425 PATIENT NAME: RACHEL FELIZ FERCHO Electrocardiogram DATE OF : 47 PHYSICIAN: ANDRES CRESPO MD REPORT #: [id number] REPORT IS CONFIDENTIAL AND NOT TO BE RELEASED WITHOUT AUTHORIZATION
== END 2021-06-03 16:04 | disposition short-term general hospital (02) ==
LOC: ED 08:19
DX: M51.26 Other intervertebral disc displacement, lumbar region (principal); G83.10 Monoplegia of lower limb affecting unspecified side; R32 Unspecified urinary incontinence; R15.9 Full incontinence of feces; Z20.822 Contact with and (suspected) exposure to COVID-19; E03.9 Hypothyroidism, unspecified; G47.30 Sleep apnea, unspecified; I10 Essential (primary) hypertension; E78.00 Pure hypercholesterolemia, unspecified; Z87.891 Personal history of nicotine dependence; G20 Parkinson's disease; Z79.899 Other long term (current) drug therapy; Z79.52 Long term (current) use of systemic steroids
CPT/HCPCS: 51702; 72148; 80053; 81001; 83735; 84484; 85025; 93005; 93010; 99285-25; C9803; J2270; U0003

== ENCOUNTER 2021-07-07 10:26 | Emergency (ER) | payer MEDICARE, OTHER ==
[~2021-07-07] VITALS: Ht 172.7 cm; Wt 93.0 kg
[~2021-07-07 10:26] MED LIST changes: +K-TAB ER20 MEQ PO; +LASIX20 MG PO; +SINEMET 25-1001 EACH PO
[2021-07-07] MEDS ORDERED: CEFAZOLIN2 GM/50 M1 IV (11:18)
[2021-07-07] MEDS ORDERED: GABAPENTIN400 MG PO (11:24)
[2021-07-07] MEDS ORDERED: OXYCODONE HCL10 MG PO (11:25)
[2021-07-07] MEDS ORDERED: LITHIUM CARBON450 MG PO (11:31)
[2021-07-07] MEDS ORDERED: RIFAMPIN300 MG PO (11:56)
[2021-07-07] MEDS ORDERED: VRAYLAR1.5 MG PO (11:59)
[2021-07-07] MEDS ORDERED: ACETAMINOPHEN500 MG PO (12:01)
[2021-07-07] MEDS ORDERED: PROAIR DIGIHAL90 MCG INH (12:08)
== END 2021-07-08 00:24 | disposition short-term general hospital (02) ==
LOC: ED 10:26
DX: T81.41XA Infection following a procedure, superficial incisional surgical site, initial encounter (principal); L02.212 Cutaneous abscess of back [any part, except buttock and flank]; M46.44 Discitis, unspecified, thoracic region; E03.9 Hypothyroidism, unspecified; G47.30 Sleep apnea, unspecified; I10 Essential (primary) hypertension; G20 Parkinson's disease; Z79.899 Other long term (current) drug therapy; E78.00 Pure hypercholesterolemia, unspecified; Z85.038 Personal history of other malignant neoplasm of large intestine; Z79.891 Long term (current) use of opiate analgesic; Z79.52 Long term (current) use of systemic steroids; Z20.822 Contact with and (suspected) exposure to COVID-19
CPT/HCPCS: 72070; 72100; 72128; 72131; 80053; 83605; 85025; 96374; 96375; 96376; 99285-25; C9803; J0690; J2270; U0003

== ENCOUNTER 2021-07-20 09:49 | Emergency (ER) | payer MEDICARE, OTHER ==
[~2021-07-20] VITALS: Ht 172.7 cm; Wt 97.7 kg
[~2021-07-20 09:49] MED LIST changes: +ACETAMINOPHEN500 MG PO; +CEFAZOLIN2 GM/50 M1 IV; +LITHIUM CARBON450 MG PO; +OXYCODONE HCL10 MG PO; +PROAIR DIGIHAL90 MCG INH; +RIFAMPIN300 MG PO; +VRAYLAR1.5 MG PO
--- OUTSIDE RECORDS SUMMARY | 2021-07-20 09:52 | XMS ---
PreManage Notification: RACHEL FELIZ Security Security Dispatcher Events No recent Security Events currently on file CRITERIA MET - [facility] - [facility] - 2 Visits in 30 Days - 6 ED Visits in 6 Months CARE PROVIDERS ADAM LESLIE Physician Manager Money 05/07/2021-Current PHONE: Unknown April has no Care Guidelines for this patient. EScooby VISIT COUNT (12 MO.) 2 Julia Palacios [address] [place] [address] TOTAL 6 NOTE: Visits indicate total known visits. ED/UCC VISIT TRACKING (12 MO.) 07/20/2021 09:50 [facility] [place] TYPE: Emergency COMPLAINT: - BACK SKIN PROBLEM 07/08/2021 02:23 [facility] TYPE: Emergency DIAGNOSES: - Post op Spinal Abscess T2-L1 - Other injury of unspecified body region, initial encounter - Post-Op Problem - Local infection of the skin and subcutaneous tissue, unspecified 07/07/2021 10:27 [facility] [place] TYPE: Emergency COMPLAINT: - POST SURGICAL SWELLING, POSS BLOOD IN STOOL DIAGNOSES: - Pure hypercholesterolemia, unspecified - Discitis, unspecified, thoracic region - Cutaneous abscess of back [any part, except buttock] - Other detention (current) drug therapy - Essential (primary) hypertension - Sleep apnea, unspecified - Personal history of other malignant neoplasm of large intestine - materials intern (current) use of opiate analgesic - Hypothyroidism, unspecified - Infection following a procedure, superficial incisional surgical site, initial encounter - materials intern (current) use of systemic steroids - Discitis, unspecified, thoracic region - Infection following a procedure, superficial incisional surgical site, initial encounter - Parkinson's disease 06/03/2021 18:02 [facility] TYPE: Emergency DIAGNOSES: - Neurologic Problem - L-1, L2 Compression fx's w/neurologic deficit 06/03/2021 08:19 [facility] [place] TYPE: Emergency COMPLAINT: - GLF, BACK PAIN DIAGNOSES: - Other intervertebral disc displacement, lumbar region - Unspecified urinary incontinence - prison (current) use of systemic steroids - Pure hypercholesterolemia, unspecified - Full incontinence of feces - Parkinson's disease - Personal history of nicotine dependence - 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 - Other color making supervisor (current) drug therapy - Essential (primary) hypertension - Hypothyroidism, unspecified - Sleep apnea, unspecified 05/06/2021 13:50 [facility] [place] TYPE: Emergency COMPLAINT: - BACK PAIN, DISORIENTED, FATIGUE, DIARRHEA INPATIENT VISIT TRACKING (12 MO.) 07/[facility]21 [facility] TYPE: Inpatient DIAGNOSES: - Post-Op Problem - Local infection of the skin and subcutaneous tissue, unspecified - Post op Spinal Abscess T2-L1 - Other injury of unspecified body region, initial encounter - Paraplegia, incomplete - Infection following a procedure, other surgical site, initial encounter [facility]12[facility]2021 [facility] TYPE: Inpatient DIAGNOSES: - Local infection of the skin and subcutaneous tissue, unspecified - Spinal stenosis, lumbar region with neurogenic claudication - Other injury of unspecified body region, initial encounter - thoracic spinal cord injury - Pyothorax without fistula - Unspecified injury at unspecified level of thoracic spinal cord, initial encounter - Paraplegia, incomplete 06/03/2021 18:02 Julia Palacios [facility] TYPE: Inpatient DIAGNOSES: - Spinal stenosis, lumbar region with neurogenic claudication - L-1, L2 Compression fx's w/neurologic deficit - Neurologic Problem - Spinal stenosis, site unspecified - Other intervertebral disc displacement, lumbar region - Cauda equina syndrome 05/06/2021 13:51 [facility] Keyes TYPE: Observation COMPLAINT: - SYNCOPE DIAGNOSES: - [...] blood-pressure reading, without diagnosis of hypertension - materials intern (current) use of opiate analgesic - Gastro-esophageal reflux disease without esophagitis - Hypothyroidism, unspecified - Rheumatoid arthritis, unspecified - Other intestinal obstruction unspecified as to partial versus complete obstruction - Sleep apnea, unspecified - Parkinson's disease - Dehydration - Drug induced constipation - Personal history of nicotine dependence 09/01/2020 05:48 [facility] TYPE: Inpatient [id number]
== END 2021-07-20 20:18 | disposition home or self-care (01) ==
LOC: ED 09:49
PROC: 0H96XZZ Drainage of Back Skin, External Approach (ICD-10-PCS; principal; 2021-07-20)
DX: T81.41XA Infection following a procedure, superficial incisional surgical site, initial encounter (principal); M06.9 Rheumatoid arthritis, unspecified; E03.9 Hypothyroidism, unspecified; G47.30 Sleep apnea, unspecified; I10 Essential (primary) hypertension; E78.00 Pure hypercholesterolemia, unspecified; Z85.038 Personal history of other malignant neoplasm of large intestine; Z20.822 Contact with and (suspected) exposure to COVID-19; Z79.899 Other long term (current) drug therapy
CPT/HCPCS: 10060; 72129; 72132; 80053; 85025; 99284-25; C9803; J0690; J1170; J2405; J7030; Q9967; U0003

== ENCOUNTER 2021-11-11 10:35 | Emergency (ER) | payer MEDICARE, OTHER ==
[~2021-11-11] VITALS: Ht 172.7 cm; Wt 100.0 kg
[~2021-11-11 10:35] MED LIST changes: +VANCOMYCIN1.5 GM/15 IV
--- OUTSIDE RECORDS SUMMARY | 2021-11-11 10:38 | XMS ---
PreManage Notification: RACHEL FELIZ Security Hearing Aid Repairer Events No recent Security Events currently on file CRITERIA MET - [facility] Physician Extrusion Bender 05/07/2021-Current PHONE: Unknown April has no Care Guidelines for this patient. Care History Medical/Surgical 07/21/2021 [facility] - PATIENT NEUROSURGEON AT [facility]- DR CATA HIGHTOWER E.D. VISIT COUNT (12 MO.) 3 [facility] 1 Jihan Palacios 6 [facility] TOTAL 10 NOTE: Visits indicate total known visits. ED/UCC VISIT TRACKING (12 MO.) 11/11/2021 10:36 [facility] Keyes TYPE: Emergency COMPLAINT: - HEART PROBLEM 08/20/2021 09:40 [facility] [place] TYPE: Emergency COMPLAINT: - PIC LINE ISSUE 07/21/2021 18:04 [place] [facility] TYPE: Emergency DIAGNOSES: - Back Pain - R/O Post Op Incisinoal Abcess, COVID PCR Neg, [facility] stable eta tbd - Osteomyelitis of vertebra, site unspecified 07/21/2021 09:30 Jihan MARIN TYPE: Emergency COMPLAINT: - POST OP PAIN DIAGNOSES: - Cutaneous abscess of back [any part, except buttock] - Cannabis use, unspecified, uncomplicated - Personal history of nicotine dependence - nursing home (current) use of inhaled steroids - intermediate school teacher (current) use of opiate analgesic - Other custodial (current) drug therapy - Unspecified complication of procedure, initial encounter 07/20/2021 09:50 [facility] Key[facility] TYPE: Emergency COMPLAINT: - BACK SKIN PROBLEM DIAGNOSES: - Other custodial (current) drug therapy - Personal history of other malignant neoplasm of large intestine - Infection following a procedure, superficial incisional surgical site, initial encounter - Essential (primary) hypertension - Hypothyroidism, unspecified - Rheumatoid arthritis, unspecified - Sleep apnea, unspecified - Pure hypercholesterolemia, unspecified 07/08/2021 02:23 Julia MARIN TYPE: Emergency DIAGNOSES: - Post op Spinal [...] back [any part, except buttock] - Other oysterman (current) drug therapy - Essential (primary) hypertension - Sleep apnea, unspecified - Personal history of other malignant neoplasm of large intestine - intermediate school teacher (current) use of opiate analgesic - Hypothyroidism, unspecified - Infection following a procedure, superficial incisional surgical site, initial encounter - intermediate school teacher (current) use of systemic steroids - Discitis, unspecified, thoracic region - Infection following a procedure, superficial incisional surgical site, initial encounter - Parkinson's disease 06/03/2021 18:02 [facility] TYPE: Emergency DIAGNOSES: - Neurologic Problem - L-1, L2 Compression fx's w/neurologic deficit 06/03/2021 08:19 [facility] [place] TYPE: Emergency COMPLAINT: - GLF, BACK PAIN DIAGNOSES: - Other intervertebral disc displacement, lumbar region - Unspecified urinary incontinence - nursing home (current) use of systemic steroids - Pure hypercholesterolemia, unspecified - Full incontinence of feces - Parkinson's disease - Personal history of nicotine dependence - 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 - Other oysterman (current) drug therapy - Essential (primary) hypertension - Hypothyroidism, unspecified - Sleep apnea, unspecified 05/06/2021 13:50 [facility] [place] TYPE: Emergency COMPLAINT: - BACK PAIN, DISORIENTED, FATIGUE, DIARRHEA INPATIENT VISIT TRACKING (12 MO.) 07/21/2021 [facility]04 [facility] TYPE: Inpatient DIAGNOSES: - Osteomyelitis of vertebra, site unspecified - Pyothorax without fistula - Presence of other vascular implants and grafts - R/O Post Op Incisinoal Abcess, COVID PCR Neg, [facility] stable eta tbd - Back Pain - Unspecified infectious disease - Cutaneous abscess of back [any part, except buttock] 07/08/2021 02:23 [facility] TYPE: Inpatient DIAGNOSES: - Post-Op Problem - Local infection of the skin and subcutaneous tissue, unspecified - Post op Spinal Abscess T2-L1 - Other injury of unspecified body region, initial encounter - Paraplegia, incomplete - Infection following a procedure, other surgical site, initial encounter 06/12/2021 18:44 [facility] TYPE: Inpatient DIAGNOSES: - Local infection of the skin and subcutaneous tissue, unspecified - Spinal stenosis, lumbar region with neurogenic claudication - Other injury of unspecified body region, initial encounter - thoracic spinal cord injury - Pyothorax without fistula - Unspecified injury at unspecified level of thoracic spinal cord, initial encounter - Paraplegia, incomplete 06/03/2021 18:02 [facility] TYPE: Inpatient DIAGNOSES: - Spinal stenosis, lumbar region with neurogenic claudication - L-1, L2 Compression fx's w/neurologic deficit - Neurologic Problem - Spinal stenosis, site unspecified - Other intervertebral disc displacement, lumbar region - Cauda equina syndrome 05/06/2021 13:51 [facility] [place] TYPE: Observation [...] blood-pressure reading, without diagnosis of hypertension - intermediate school teacher (current) use of opiate analgesic - Gastro-esophageal reflux disease without esophagitis - Hypothyroidism, unspecified - Rheumatoid arthritis, unspecified - Other intestinal obstruction unspecified as to partial versus complete obstruction - Sleep apnea, unspecified - Parkinson's disease - Dehydration - Drug induced constipation - Personal history of nicotine dependence [id number]
[2021-11-11] MEDS ORDERED: METHOCARBAMOL500 MG PO (10:43)
[2021-11-11] MEDS ORDERED: OXYCODONE HCL5 MG PO (10:44)
[2021-11-11] MEDS ORDERED: LEVALBUTEROL TA15 GM INH (10:45)
[2021-11-11] MEDS ORDERED: PROBIOTIC GOLD1 EACH PO (10:47)
[2021-11-11] MEDS ORDERED: CEPHALEXIN500 M1 PO (10:48)
[2021-11-11] MEDS ORDERED: SINEMET 10-1001 EACH PO (10:48)
[2021-11-11] MEDS ORDERED: CARISOPRODOL350 MG PO (10:49)
[2021-11-11] MEDS ORDERED: NAPROSYN500 MG PO (11:58)
--- NOTE | 2021-11-12 12:51 | EKG ---
[facility] [address] [place], [place] [address] Signed Normal sinus rhythm Normal ECG No previous ECGs available Confirmed by EDMUNDO MARKS DO ([id number]) on 11/12/2021 12:51:28 PM Electronically Signed By: EDMUNDO MARKS DO 11/12/21 1251 PATIENT NAME: RACHEL FELIZ FERCHO Electrocardiogram DATE OF : 47 PHYSICIAN: EDMUNDO MARKS DO REPORT #: [id number] REPORT IS CONFIDENTIAL AND NOT TO BE RELEASED WITHOUT AUTHORIZATION
== END 2021-11-11 12:15 | disposition home or self-care (01) ==
LOC: ED 10:35
DX: G89.18 Other acute postprocedural pain (principal); R07.89 Other chest pain; M06.9 Rheumatoid arthritis, unspecified; E03.9 Hypothyroidism, unspecified; G47.30 Sleep apnea, unspecified; I10 Essential (primary) hypertension; E78.00 Pure hypercholesterolemia, unspecified; G20 Parkinson's disease; Z79.51 Long term (current) use of inhaled steroids; Z79.890 Hormone replacement therapy; Z79.899 Other long term (current) drug therapy; Z85.038 Personal history of other malignant neoplasm of large intestine; Z79.891 Long term (current) use of opiate analgesic
CPT/HCPCS: 71045; 80053; 83735; 84484; 85025; 93005; 93010; 99284-25

== ENCOUNTER 2021-12-25 16:53 | Emergency (ER) | payer MEDICARE, OTHER ==
[~2021-12-25] VITALS: Ht 172.7 cm; Wt 100.0 kg
[~2021-12-25 16:53] MED LIST changes: +CEPHALEXIN500 M1 PO; +LEVALBUTEROL TA15 GM INH; +METHOCARBAMOL500 MG PO; +NAPROSYN500 MG PO; +OXYCODONE HCL5 MG PO; +PROBIOTIC GOLD1 EACH PO
--- OUTSIDE RECORDS SUMMARY | 2021-12-25 16:56 | XMS ---
PreManage Notification: RACHEL FELIZ Security Precision Lens Grinder Apprentice Events No recent Security Events currently on file CRITERIA MET - [facility] Physician Senior Economist 05/07/2021-Current PHONE: Unknown April has no Care Guidelines for this patient. Care History Medical/Surgical 07/21/2021 [facility] - PATIENT NEUROSURGEON AT [facility]- DR CATA HIGHTOWER E.D. VISIT COUNT (12 MO.) 3 [facility] 1 [facility] NOTE: Visits indicate total known visits. ED/UCC VISIT TRACKING (12 MO.) 12/25/2021 16:54 [facility] [place] TYPE: Emergency COMPLAINT: - WEAKNESS 11/11/2021 10:36 [facility] [place] TYPE: Emergency COMPLAINT: - HEART PROBLEM DIAGNOSES: - Other regulatory affairs intern (current) drug therapy - Hypothyroidism, unspecified - Chest pain, unspecified - Sleep apnea, unspecified - Hormone replacement therapy - Essential (primary) hypertension - retirement (current) use of opiate analgesic - Pure hypercholesterolemia, unspecified - Other chest pain - Parkinson's disease - Other acute postprocedural pain - Rheumatoid arthritis, unspecified - chief dispatcher (current) use of inhaled steroids - Personal history of other malignant neoplasm of large intestine 08/20/2021 09:40 [facility] [place] TYPE: Emergency COMPLAINT: - PIC LINE ISSUE 07/21[facility]2021 18[facility]: [facility] DIAGNOSES: - Back Pain - R/O Post Op Incisinoal Abcess, COVID PCR Neg, [facility] stable eta tbd - Osteomyelitis of vertebra, site unspecified 07[facility] 09[facility] COMPLAINT: - POST OP PAIN DIAGNOSES: - Cutaneous abscess of back [any part, except buttock] - Cannabis use, unspecified, uncomplicated - Personal history of nicotine dependence - chief dispatcher (current) use of inhaled steroids - chief dispatcher (current) use of opiate analgesic - Other nursing home (current) drug therapy - Unspecified complication of procedure, initial encounter 07/20/2021 09:50 [facility] TYPE: Emergency COMPLAINT: - BACK SKIN PROBLEM DIAGNOSES: - Other nursing home (current) drug therapy - Personal history of other malignant neoplasm of large intestine - Infection following a procedure, superficial incisional surgical site, initial encounter - Essential (primary) hypertension - Hypothyroidism, unspecified - Rheumatoid arthritis, unspecified - Sleep apnea, unspecified - Pure hypercholesterolemia, unspecified 07/08/2021 02:23 [facility] TYPE: Emergency DIAGNOSES: - Post op Spinal Abscess T2-L1 - Other injury of unspecified body region, initial encounter - Post-Op Problem - Local infection of the skin and subcutaneous tissue, unspecified 07/07/2021 10:[address] [facility] TYPE: Emergency COMPLAINT: - POST SURGICAL SWELLING, POSS BLOOD IN STOOL DIAGNOSES: - Pure hypercholesterolemia, unspecified - Discitis, unspecified, thoracic region - Cutaneous abscess of back [any part, except buttock] - Other regulatory affairs intern (current) drug therapy - Essential (primary) hypertension - Sleep apnea, unspecified - Personal history of other malignant neoplasm of large intestine - chief dispatcher (current) use of opiate analgesic - Hypothyroidism, unspecified - Infection following a procedure, superficial incisional surgical site, initial encounter - retirement (current) use of systemic steroids - Discitis, unspecified, thoracic region - Infection following a procedure, superficial incisional surgical site, initial encounter - Parkinson's disease 06/03/2021 18:02 [facility] TYPE: Emergency DIAGNOSES: - Neurologic Problem - L-1, L2 Compression fx's w/neurologic deficit 06/03/2021 08:19 [facility] [place] TYPE: Emergency COMPLAINT: - GLF, BACK PAIN DIAGNOSES: - Other intervertebral disc displacement, lumbar region - Unspecified urinary incontinence - chief dispatcher (current) use of systemic steroids - Pure hypercholesterolemia, unspecified - Full incontinence of feces - Parkinson's disease - Personal history of nicotine dependence - 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 - Other nursing home (current) drug therapy - Essential (primary) hypertension - Hypothyroidism, unspecified - Sleep apnea, unspecified 05/06/2021 13:50 [facility] [place] TYPE: Emergency COMPLAINT: - BACK PAIN, DISORIENTED, FATIGUE, DIARRHEA INPATIENT VISIT TRACKING (12 MO.) 07/21/2021 18:04 [facility] TYPE: Inpatient DIAGNOSES: - Osteomyelitis of vertebra, site unspecified - Pyothorax without fistula - Presence of other vascular implants and grafts - R/O Post Op Incisinoal Abcess, COVID PCR Neg, [facility] stable eta tbd - Back Pain - Unspecified infectious disease - Cutaneous abscess of back [any part, except buttock] 07/08/2021 02:23 [facility] TYPE: Inpatient DIAGNOSES: - Post-Op Problem - Local infection of the skin and subcutaneous tissue, unspecified - Post op Spinal Abscess T2-L1 - Other injury of unspecified body region, initial encounter - Paraplegia, incomplete - Infection following a procedure, other surgical site, initial encounter 06/12/2021 18:44 [facility] TYPE: Inpatient DIAGNOSES: - Local infection of the skin and subcutaneous tissue, unspecified - Spinal stenosis, lumbar region with neurogenic claudication - Other injury of unspecified body region, initial encounter - thoracic spinal cord injury - Pyothorax without fistula - Unspecified injury at unspecified level of thoracic spinal cord, initial encounter - Paraplegia, incomplete 06/03/2021 18:02 [facility] TYPE: Inpatient DIAGNOSES: - Spinal stenosis, [...] blood-pressure reading, without diagnosis of hypertension - retirement (current) use of opiate analgesic - Gastro-esophageal reflux disease without esophagitis - Hypothyroidism, unspecified - Rheumatoid arthritis, unspecified - Other intestinal obstruction unspecified as to partial versus complete obstruction - Sleep apnea, unspecified - Parkinson's disease - Dehydration - Drug induced constipation - Personal history of nicotine dependence [email or web address]
[2021-12-25] MEDS ORDERED: SEROQUEL25 MG PO (16:58)
== END 2021-12-25 20:30 | disposition home or self-care (01) ==
LOC: ED 16:53
DX: R53.1 Weakness (principal); M06.9 Rheumatoid arthritis, unspecified; E03.9 Hypothyroidism, unspecified; G47.30 Sleep apnea, unspecified; I10 Essential (primary) hypertension; E78.00 Pure hypercholesterolemia, unspecified; G20 Parkinson's disease; Z79.899 Other long term (current) drug therapy; Z79.891 Long term (current) use of opiate analgesic
CPT/HCPCS: 36415; 71045; 80053; 81001; 85025; 99285-25; J7030

== ENCOUNTER 2022-08-23 14:54 | Emergency (ER) | payer MEDICARE, OTHER ==
[~2022-08-23] VITALS: Ht 172.7 cm; Wt 106.8 kg
[~2022-08-23 14:54] MED LIST changes: +SEROQUEL25 MG PO
--- OUTSIDE RECORDS SUMMARY | 2022-08-23 14:56 | XMS ---
PreManage Notification: RACHEL FELIZ Security Photographers' Model Events No recent Security Events currently on file CRITERIA MET - PDMP CARE PROVIDERS ADAM LESLIE Physician Diamond Broker 05/07/2021-Current PHONE: Unknown April has no Care Guidelines for this patient. Care History Medical/Surgical 07/21/2021 [facility] - [facility]GE[facility] DR CATA HIGHTOWER E.D. VISIT COUNT (12 MO.) 3 [facility]. TOTAL 3 NOTE: Visits indicate total known visits. ED/UCC VISIT TRACKING (12 MO.) 08/23/2022 14:55 [facility] [place] TYPE: Emergency COMPLAINT: - SWEATING 12/25/2021 16:54 [facility] [place] TYPE: Emergency COMPLAINT: - WEAKNESS DIAGNOSES: - Other terminal supervisor (current) drug therapy - Pure hypercholesterolemia, unspecified - Rheumatoid arthritis, unspecified - long-term (current) use of opiate analgesic - Parkinson's disease - Sleep apnea, unspecified - Weakness - Hypothyroidism, unspecified - Essential (primary) hypertension 11/11/2021 10:36 [facility] [place] TYPE: Emergency COMPLAINT: - HEART PROBLEM DIAGNOSES: - meterman (current) use of opiate analgesic - Personal history of other malignant neoplasm of large intestine - Hormone replacement therapy - Rheumatoid arthritis, unspecified - Chest pain, unspecified - Parkinson's disease - Other fci (current) drug therapy - Pure hypercholesterolemia, unspecified - Essential (primary) hypertension - long-term (current) use of inhaled steroids - Sleep apnea, unspecified - Other acute postprocedural pain - Hypothyroidism, unspecified - Other chest pain INPATIENT VISIT TRACKING (12 MO.) No inpatient visits to display in this time frame [email or web address]
[2022-08-23] MEDS ORDERED: CARISOPRODOL350 MG PO (18:46)
[2022-08-23] MEDS ORDERED: CEPHALEXIN500 MG PO (18:46)
[2022-08-23] MEDS ORDERED: OXYCODONE HCL15 MG PO (18:46)
[2022-08-23] MEDS ORDERED: HYDROXYCHLOROQ200 MG PO (18:50)
[2022-08-23] MEDS ORDERED: PRAZOSIN HCL5 MG PO (18:51)
== END 2022-08-23 19:48 | disposition home or self-care (01) ==
LOC: ED 14:54
DX: K59.00 Constipation, unspecified (principal); R11.2 Nausea with vomiting, unspecified; G47.30 Sleep apnea, unspecified; I10 Essential (primary) hypertension; G20 Parkinson's disease; E78.00 Pure hypercholesterolemia, unspecified; E03.9 Hypothyroidism, unspecified; Z85.038 Personal history of other malignant neoplasm of large intestine; Z87.442 Personal history of urinary calculi; Z79.899 Other long term (current) drug therapy
CPT/HCPCS: 36415; 74177; 80053; 81001; 83690; 83735; 85025; 99284-25; J2405; J7040; Q9967

== ENCOUNTER 2022-10-29 07:46 | Emergency (ER) | payer MEDICARE, OTHER ==
[~2022-10-29] VITALS: Ht 172.7 cm; Wt 106.8 kg
[~2022-10-29 07:46] MED LIST changes: +CEPHALEXIN500 MG PO; +HYDROXYCHLOROQ200 MG PO; +OXYCODONE HCL15 MG PO; +PRAZOSIN HCL5 MG PO
--- OUTSIDE RECORDS SUMMARY | 2022-10-29 07:49 | XMS ---
PreManage Notification: RACHEL FELIZ Security Mergers And Acquisitions Banker Events No recent Security Events currently on file CRITERIA MET - PDMP CARE PROVIDERS ADAM LESLIE Physician Wire Welder 05/07/2021-Current PHONE: Unknown April has no Care Guidelines for this patient. Care History Medical/Surgical 07/21/2021 [facility] - PATIENT NEUROSURGEON AT [facility]- DR CATA HIGHTOWER E.D. VISIT COUNT (12 MO.) 4 [facility]. TOTAL 4 NOTE: Visits indicate total known visits. ED/UCC VISIT TRACKING (12 MO.) 10/29/2022 07:47 [facility] [place] TYPE: Emergency COMPLAINT: - BACK PAIN, WEAKNESS 08/23/2022 14:55 [facility] [place] TYPE: Emergency COMPLAINT: - SWEATING DIAGNOSES: - Personal history of other malignant neoplasm of large intestine - Other extermination supervisor (current) drug therapy - Essential (primary) hypertension - Parkinson's disease - Sleep apnea, unspecified - Unspecified abdominal pain - Personal history of urinary calculi - Constipation, unspecified - Nausea with vomiting, unspecified - Hypothyroidism, unspecified - Pure hypercholesterolemia, unspecified 12/25/2021 16:54 [facility] [place] TYPE: Emergency COMPLAINT: - WEAKNESS DIAGNOSES: - Hypothyroidism, unspecified - Essential (primary) hypertension - Other extermination supervisor (current) drug therapy - Pure hypercholesterolemia, unspecified - Rheumatoid arthritis, unspecified - lobsterman (current) use of opiate analgesic - Parkinson's disease - Sleep apnea, unspecified - Weakness 11/11/2021 10:36 [facility] TYPE: Emergency COMPLAINT: - HEART PROBLEM DIAGNOSES: - Other acute postprocedural pain - Hypothyroidism, unspecified - Other chest pain - FCI (current) use of opiate analgesic - Personal history of other malignant neoplasm of large intestine - Hormone replacement therapy - Rheumatoid arthritis, unspecified - Chest pain, unspecified - Parkinson's disease - Other extermination supervisor (current) drug therapy - Pure hypercholesterolemia, unspecified - Essential (primary) hypertension - [facility]CI (current) use of inhaled steroids - Sleep apnea, unspecified INPATIENT VISIT TRACKING (12 MO.) No inpatient visits to display in this time frame [id number]
== END 2022-10-29 16:30 | disposition home or self-care (01) ==
LOC: ED 07:46
DX: G57.92 Unspecified mononeuropathy of left lower limb (principal); I10 Essential (primary) hypertension; E03.9 Hypothyroidism, unspecified; G47.30 Sleep apnea, unspecified; E78.00 Pure hypercholesterolemia, unspecified; Z79.899 Other long term (current) drug therapy
CPT/HCPCS: 36415; 70551; 72158; 80053; 81003; 83735; 84443; 85025; 85651; 86140; 86141; 96374; 96375; 99284-25; A9577; J1170; J2405